=== PATIENT | male | born 1940 | race Two or more races ===

== ENCOUNTER 2016-09-27 13:18 | Observation (INO) | payer MEDICARE ==
--- NOTE | 2016-09-19 13:50 | HP ---
PREOPERATIVE HISTORY AND PHYSICAL: DATE OF PREOPERATIVE HISTORY AND PHYSICAL EXAMINATION: 09/16/16. DATE OF ADMISSION: 09/27/16 This patient is scheduled for same-day surgery admission by Dr. Nunez on 09/27/16. ATTENDING SURGEON: Dr. Gonzalo Nunez (dictated by Jamilah Lopez NP). CHIEF COMPLAINT: Abdominal pain. HISTORY OF PRESENT ILLNESS: The patient is a 76-year-old male evaluated by Dr. Nunez in our office on 08/10/16. The patient had been to the [facility] Emergency Department on 07/19/16 for abdominal pain and change in bowel movements. The patient reports that about 9 months ago, he started to have loose and frequent bowel movements. He also described discomfort in the right upper quadrant of the abdomen associated with tenderness. The patient's noted that the abdominal pain occurred postprandially and lasted anywhere from 10 to 30 minutes. He denies any dark urine or shweta-colored stools or jaundice or fever or chills. In the emergency department, he had both CT of the abdomen and abdominal ultrasound completed, and on the ultrasound, the gallbladder wall was thickened and it was surrounded by a small amount of ascites. The patient reported that he had tenderness at the time of the ultrasound. Dr. Nunez examined the patient and reviewed the labs and the radiographic data from and discussed with the patient that the findings are most consistent with biliary colic/chronic cholecystitis. Dr. Nunez recommends laparoscopic cholecystectomy as a same-day surgery procedure and discussed the nature of the procedure, the relevant risks and benefits, and today I reviewed the typical postoperative care and recovery. The patient has a history of coronary artery disease and is followed by a ratoprinter in [place], [place], Dr. Devin Barriga at the [facility]. Dr. Barriga has evaluated the patient preoperatively and has cleared him to proceed with surgery. The patient has had a chance to ask questions and stated that he understands the information and is satisfied with the answers given to his questions. He will sign surgical consent on the day of surgery. PAST MEDICAL HISTORY: Significant for coronary artery disease, hyperlipidemia, sleep apnea requiring the use of CPAP, obesity, Wenckebach conduction, bladder cancer, GERD, and benign prostatic hypertrophy. PAST SURGICAL HISTORY: Laparoscopic appendectomy, 2007, [facility]; pacemaker implantation, [facility], 2006, and it is a [employer] dual-chamber pacemaker; transurethral bladder surgery for cancer at [facility]; and TURP for benign prostatic hypertrophy; bilateral cataract extraction. MEDICATIONS: 1. Lipitor 80 mg p.o. daily at bedtime. 2. Zantac 300 mg p.o. daily at bedtime. 3. Losartan 100 mg p.o. daily. 4. Aspirin 81 mg daily and the patient will hold it for 5 days preop. 5. Nitroglycerin 0.4 mg sublingual p.r.n. angina. ALLERGIES: LATEX and ADHESIVE TAPE cause rash; MICARDIS caused headache, ALTACE caused cough. FAMILY HISTORY: Father with a history of bladder cancer. Mother with a history of heart disease. No known anesthesia complications, bleeding tendencies, or clotting disorders. 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 REVIEW OF SYSTEMS: He has a history of coronary artery disease, hyperlipidemia , and Wenckebach conduction, and has a permanent pacemaker; he is followed by Dr. Devin Barriga for Cardiology in [place], [place]; please see the attached preoperative clearance note from Dr. Barriga; he denies any recent chest pain or unusual shortness of breath; he denies any history of deep vein thrombosis or pulmonary embolism; he denies any previous anesthesia complications; he denies any bleeding tendencies and has never received a blood transfusion; he denies any syncopal episodes; he denies any recent viral illnesses; he denies any blood in stool; he does suffer from heartburn; he denies any shweta-colored stools or tea- colored urine or ronald jaundice; he has sleep apnea and uses CPAP ; he denies any joint or muscle pain. The patient had an echocardiogram in November 2015 with an ejection fraction of 60% to 65%. PHYSICAL EXAMINATION GENERAL SURVEY: The patient is a 76-year-old male, obese, well-developed, in no acute distress. VITAL SIGNS: Height 71 inches, weight 245 pounds, body mass index 34.2. Blood pressure 130/80, pulse 80 and regular, respiratory rate 18. SKIN: Warm, dry, intact. HEENT: Benign. NECK: Supple. No cervical lymphadenopathy. No carotid bruits. BACK: No CVA tenderness. LUNGS: Breath sounds bilaterally clear and equal. HEART: Regular rate and rhythm. No murmurs, rubs, or gallops appreciated. ABDOMEN: Obese, active bowel sounds, mildly tender in the epigastrium to the right upper quadrant. Negative Griffith's sign. No obvious masses or organomegaly or evidence of hernia. EXTREMITIES: Warm without edema or skin ulcerations. GENITALIA: Deferred. RECTAL: Deferred. NEUROLOGIC: Alert and oriented x3. Steady gait. IMPRESSION: Symptomatic cholelithiasis. PLAN: Same-day surgery admission to Dr. Nunez' service on 09/27/16, for laparoscopic cholecystectomy. ELVER LOPEZ NP CC: Dr. Johnston* [id number]/[facility] #: [id number] GALO
[~2016-09-27 13:18] MED LIST: Buffered Lidocaine 1% SYR 3ML* 3 ML/SYR SYRINGE INTRADERM ONE; Famotidine IV* 10 MG/ML 2 ML (20 mg) IV ONE; Morphine INJ* 2 MG/ML 1 ML CARPUJECT IV PRN; PROCHLORPERAZINE INJ 5 MG/ML 2 ML VIAL IV PRN; fentaNYL* 50 MCG/ML 2 ML VIAL (100 MCG VIAL) IV PRN; oxyCODONE/Acetamin 5/325 MG* TAB PO PRN
[2016-09-27] MEDS ORDERED: Famotidine IV* 10 MG/ML 2 ML (20 mg) ONE (13:49)
[2016-09-27] MEDS ORDERED: ceFAZolin 2 GM PREMIX (*) 2 GM/50 ML BAG IVPB ONE (13:49)
[2016-09-27] MEDS ORDERED: Morphine INJ* 10 MG/ML 1 ML CARPUJECT ONE (14:19)
[2016-09-27] MEDS ORDERED: Midazolam* 1 MG/ML 5 ML VIAL (5 MG) ONE (14:20)
[2016-09-27] MEDS ORDERED: fentaNYL* 50 MCG/ML 2 ML VIAL (100 MCG VIAL) ONE ×2 (14:20→19:01)
[2016-09-27] MEDS ORDERED: KETAMINE HCL* 50 MG/ML 10 ML VIAL ONE (14:20)
[2016-09-27] MEDS ORDERED: Bupivacaine 0.5% W/EPI SDV* 30 ML VIAL ONE (14:46)
[2016-09-27] MEDS ORDERED: Ondansetron INJ* 2 MG/ML VIAL ONE (15:47)
[2016-09-27] MEDS ORDERED: Propofol* 10 MG/ML 20 ML BTL IV PUSH ONE (15:47)
[2016-09-27] MEDS ORDERED: Lidocaine 2% PF * 5 ML VIAL ONE (15:47)
[2016-09-27] MEDS ORDERED: Dexamethasone IV* 4 MG/ML 1 ML (4 MG) ONE (15:47)
[2016-09-27] MEDS ORDERED: Ropivacaine (OR use only) 2 MG/ML 1 ML ONE (15:47)
[2016-09-27] MEDS ORDERED: Glycopyrrolate IV* 0.2 MG/ML 1 ML VIAL ONE (15:47)
[2016-09-27] MEDS ORDERED: Neostigmine Methylsulfate* 2 MG/2 ML SYRINGE ONE (17:03)
[2016-09-27] MEDS ORDERED: Metoprolol Tartrate IV* 1 MG/ML 5 ML VIAL ONE (17:08)
--- NOTE | 2016-09-27 17:53 | PN ---
Progress Note - Progress Note Note: Brief Operative Note: Preop Dx: biliary colic Postop Dx: same; ascites; early cirrhotic appearing liver Procedure: diagnostic laparoscopy; laparoscopic cholecystectomy; paracentesis; liver bx Anesthesia: GET Surgeon: Mayra Asst: ANGELES Patel PA-S EBL: < 100 ml Fluids: 1800 ml RL Drains: none Specimen: Gallbladder; peritoneal fluid for cytology, gram stain, and chemistries Findings: 3-4 liters of ascites; nodular liver c/w early cirrhosis.
[2016-09-27] MEDS ORDERED: oxyCODONE/Acetamin 5/325 MG* TAB PO PRN ×2 (18:00→18:01)
[2016-09-27] MEDS ORDERED: Acetaminophen TAB* 325 MG PO PRN (18:02)
--- NOTE | 2016-09-28 01:10 | CONS ---
CONSULTATION REPORT: DATE OF CONSULT: 09/27/16 PRIMARY CARE PROVIDER: Franklyn Johnston MD ATTENDING PHYSICIAN: Miki Bojorquez MD (dictated by Shruti Downs NP). PHYSICIAN REQUESTING CONSULTATION: Gonzalo Nunez MD REASON FOR CONSULTATION: Ascites. HISTORY OF PRESENT ILLNESS: Mr. Ashford is a 76-year-old male with past medical history significant for coronary artery disease, hyperlipidemia, sleep apnea, bladder cancer, GERD, BPH and biliary colic and chronic cholecystitis. The patient underwent a laparoscopic cholecystectomy with Dr. Nunez today. Postoperatively, the patient is doing well. He reports some abdominal discomfort that is controlled with pain medication. Leading up to the surgery, the patient had initially presented to the [facility] on July 19 with complaints of abdominal pain and changes in his bowel movement. The patient reports for approximately 9 months, he started having loose and frequent bowel movements and discomfort in his right upper quadrant of his abdomen associated with tenderness. He noticed the pain often occurred after eating and lasted from 10 to 30 minutes. While in the emergency room on , the patient had a CT of his abdomen and an abdominal ultrasound completed. The abdominal ultrasound showed gallbladder wall thickening and was surrounded by a small amount of ascites. The patient was seen in followup in Dr. Nunez' office on August 10 at which time, Dr. Nunez recommended a laparoscopic cholecystectomy. The patient underwent a laparoscopic cholecystectomy today during which he was found to have 3 L to 4 L of ascites and a nodular liver that was consistent with early cirrhosis. The patient denies fever, chills, shortness of breath or chest pain. The patient reports abdominal pain over the last several months with loose frequent stools. 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 Ruiz. The patient also reports noticing over the last few weeks, some abdominal distention. Hospitalists were asked to evaluate the patient in consultation and assist with management in the postoperative period. PAST MEDICAL HISTORY: 1. Coronary artery disease. 2. Hyperlipidemia. 3. Obstructive sleep apnea, uses CPAP. 4. Obesity. 5. Wenckebach conduction. 6. Bladder cancer. 7. GERD. 8. Benign prostatic hypertrophy. PAST SURGICAL HISTORY: 1. Status post laparoscopic appendectomy in 2006. 2. Status post pacemaker implantation in 2006. 3. Status post transurethral bladder surgery. 4. Status post transurethral resection of the prostate. 5. Status post bilateral cataract extractions. 6. Status post cardiac catheterization with one cardiac stent. HOME MEDICATIONS: Include: 1. Lipitor 80 mg oral daily at bedtime. 2. Zantac 150 mg oral daily at bedtime. 3. Losartan 100 mg oral daily. 4. Aspirin 81 mg oral daily. The patient has held this for 5 days preop. 5. Nitroglycerin 0.4 mg sublingual as needed for chest discomfort. ALLERGIES: LATEX, ADHESIVE TAPE, MICARDIS and ALTACE. FAMILY HISTORY: The patient's father passed from bladder cancer. The patient' s mother had a history of heart disease. The patient denies any family history of diabetes mellitus. SOCIAL HISTORY: The patient is a former smoker. He smoked for 30 years approximately 3 packs a day and quit approximately 14 years ago. The patient reports drinking 1 glass of wine daily. The patient's , Caroline Ashford, will be his surrogate decision maker in the event he is unable to make decisions for himself. REVIEW OF SYSTEMS: I performed a 14-point review of systems. All the pertinent positives and negatives are mentioned in the history of present illness. The remaining review of systems is negative. PHYSICAL EXAMINATION: Vital Signs: Temperature 97.0, heart rate 96, respiratory rate 16, O2 sat 95% on 2 L via nasal cannula, blood pressure 138/ 77. Appearance: The patient is alert and appears to be in no acute distress. HEENT: Normocephalic, atraumatic. Pupils are equal and reactive to light. Extraocular movements are intact. Neck: Supple. There is no lymphadenopathy noted. Cardiovascular: Regular rate and rhythm. S1 and S2 present. There are no murmurs, rubs or gallops heard. Extremities: There is no lower extremity edema. DP and PT pulses are 2+ and symmetric. Respiratory: There is no accessory muscle use and the lungs are clear to auscultation bilaterally. Abdomen: Obese and large. Bowel sounds present. The patient has tenderness in the right upper quadrant. The abdomen is slightly firm. Musculoskeletal: There is no clubbing or cyanosis noted. The patient exhibits good strength in all extremities. Skin: There are no rashes or abnormality seen. The patient has surgical dressings to his abdomen. Neurological: Cranial nerves II through XII are grossly intact. The patient moves all extremities. Psychological: The patient is calm and cooperative. IMPRESSION: Mr. Ashford is a 76-year-old male with past medical history significant for coronary artery disease, hyperlipidemia, obstructive sleep apnea who presented to the hospital today for an elective cholecystectomy with Dr. Nunez. Hospitalists were asked to assist with comanagement of this patient during his hospitalization. 1. Status post laparoscopic cholecystectomy for chronic cholecystitis and biliary colic. Management per General Surgery. The patient was noted during his procedure to have 3 to 4 L of ascites and a nodular liver consistent with early cirrhosis. I recommend monitoring the patient for hypotension after the removal of his ascites. I also recommend having a GI consult on the patient. 2. Hyperlipidemia. The patient will be continued on his home statin. 3. Gastroesophageal reflux disease. The patient will be continued on Pepcid in place of his home Zantac. 4. History of coronary artery disease. Again, the patient will be continued on his home statin. He should resume his aspirin when okay with General Surgery. 5. Hypertension. The patient should be continued on his home losartan. At this time, his vitals are stable with the systolic blood pressures in the 130s to 150s. Again, monitor the patient for hypotension after the removal of the ascites. 6. Obstructive sleep apnea. The patient will be continued on his home CPAP. 7. Fluids, electrolytes and nutrition. The patient will be on a low-fat diet. 8. DVT prophylaxis per General Surgery. 9. Code status. Full code. 10. Disposition. Disposition per General Surgery. TIME SPENT: The time for this consultation was 45 minutes and 25 minutes were spent face to face with the patient and discussing medications, past medical history and the events leading up to his arrival today and performing a physical examination. The case has been reviewed with the attending, Dr. Bojorquez, who agrees with the plan of care. Reviewed by PAPITO GALLOWAY 09/28/16 1150 CC: Franklyn Johnston MD * [id number]/[facility] #: [id number] MTDD
[2016-09-28 06:52] LABS: Body Fluid Appearance Cloudy; Body Fluid Total Cells Counted 100
[2016-09-28 06:53] LABS: Body Fluid WBC 262 /mcL
[2016-09-28] MEDS ORDERED: Losartan TAB* 25 MG PO SCH (09:00)
[2016-09-28] MEDS ORDERED: Atorvastatin* 80 MG TAB PO SCH (09:00)
[2016-09-28] MEDS ORDERED: Famotidine TAB* 20 MG PO SCH (09:00)
[2016-09-28 10:05] LABS: Hematocrit 38 % (42-52); Hemoglobin 12.4 g/dl (14.0-18.0); Mean Corpuscular HGB Conc 33 g/dl (31-36); Mean Corpuscular Hemoglobin 28 pg (27-31); Mean Corpuscular Volume 87 fL (80-94); Mean Platelet Volume 10 um3 (7.4-10.4); Red Blood Count 4.37 10^6/ul (4.0-5.4); Red Cell Distribution Width 17 % (10.5-15); White Blood Count 4.9 10^3/ul (3.5-10.8)
[2016-09-28 10:19] LABS: Albumin 2.6 g/dL (3.2-5.2); BUN/Creatinine Ratio 14.5 (8-20); Calcium 8.3 mg/dL (8.6-10.3); EGFR African American 68.8 (>60); EGFR Non-African American 53.5 (>60); Globulin 3.3 g/dL (2-4); Potassium 4.6 mmol/L (3.5-5.0); Total Bilirubin 0.6 mg/dL (0.2-1.0); Total Protein 5.9 g/dL (6.4-8.9)
[2016-09-28 12:20] VITALS: BP 98/50
--- NOTE | 2016-09-28 14:55 | PN ---
Progress Note - Progress Note Note: Surgery Progress: (earlier note written, but I could not retrieve) S: Denies pain. Dressings had saturated multiple times overnight, but seemed to be less from 0930 to 1200. He is tolerating diet. O: Vital Signs - 8 hr 09/28/16 09/28/16 09/28/16 07:09 08:00 12:16 Temperature 98.3 F 98.0 F Pulse Rate 77 73 Respiratory 16 16 20 Rate Blood Pressure 105/47 98/50 (mmHg) O2 Sat by Pulse 97 97 96 Oximetry Vital Signs - 8 hr 09/28/16 09/28/16 09/28/16 07:09 08:00 12:16 Temperature 98.3 F 98.0 F Pulse Rate 77 73 Respiratory 16 16 20 Rate Blood Pressure 105/47 98/50 (mmHg) O2 Sat by Pulse 97 97 96 Oximetry Heart: reg; BPs still relatively low Lungs: clear ant Abd: distended; ABD wound dressing previously changed and saturated w/ clear ascites fluid; 2 add'l sutures (4-0 surgipro) placed after local anesthesia w/ 1 % plain lidocaine to the lateral lap port sites). Soft, min tenderness. Labs from peritoneal fluid still pend; cytology neg for malig cells A: s/p lap brijesh for chronic cholecystitis w/ findings of early cirrhotic changes of the liver and large amt of ascites (3-4 liters drained at the time of surgery). P: he has remained stable since surgery, but I encouraged him to get up more to see his BP response. I also spoke w/ Dr. Ruiz who will see him today. Dr. Guillen is also aware and will either see him before he goes home or in the office. If he continues to do well, he could be d/c'd to home later today.
--- NOTE | 2016-09-28 22:57 | CONS ---
CONSULTATION REPORT: DATE OF CONSULT: 09/28/16 REQUESTING PHYSICIAN: Dr. Nunze. INDICATION: Possible cirrhosis. NARRATIVE: Mr. Ashford is a very pleasant 76-year-old gentleman known to myself. I have seen him for colonoscopies in the past. He recently underwent a laparoscopic cholecystectomy and at that time was found to have ascites and a nodular appearing liver. The ascites were drained and the liver was biopsied. The patient states that about 3 to 4 weeks ago, he noticed that his abdomen was increasing in girth. He denied any jaundice. No history of liver disease in the past. No family history of liver disease. He drinks may be one alcoholic beverage per day; however, up until 8 months ago, he was drinking 2 to 3 alcoholic beverages per week. Again, no family or known history of liver disease in the patient. He denies any suspect medications. PAST MEDICAL HISTORY: Significant for hypercholesterolemia, hypertension, coronary artery disease. PAST SURGICAL HISTORY: Includes appendectomy, pacemaker, cholecystectomy, and coronary artery stents. MEDICATIONS: Upon admission included: 1. Aspirin. 2. Lipitor. 3. Losartan. 4. Nitrostat. 5. Zantac. ALLERGIES: No known drug allergies. FAMILY HISTORY: Colon cancer. SOCIAL HISTORY: Occasional alcohol. No tobacco. He quit many years ago. REVIEW OF SYSTEMS: 12 systems were reviewed, other than that mentioned in the HPI were unremarkable. PHYSICAL EXAM: Vital signs are stable. Temperature is 98.0, blood pressure 98/ 50, pulse is 73. General: Well-appearing male, in no apparent distress. Alert , oriented, pleasant, and fluent. HEENT: Mucous membranes are moist without lesions, ulcerations, or exudate. Neck is supple. Trachea is midline. Head is normocephalic, atraumatic. Heart: Regular rate and rhythm. There is no scleral icterus. Lungs: Clear to auscultation. Abdomen: Obese. Positive bowel sounds. No flanks. He is tender; however, he just had cholecystectomy yesterday. Neuro: No asterixis. DIAGNOSTIC STUDIES/LAB DATA: Labs of note, INR 0.94. Bilirubin 0.6, AST is 31 , ALT is 25, alk phos is 112, albumin is 2.6. White count 4.9, hemoglobin 12.4 , platelets of 140. BUN is 19, creatinine is 1.31, sodium is 135. He did have a CT abdomen and pelvis in June 2016, which did not reveal any evidence of liver disease. He did have a small amount of ascites. ASSESSMENT AND PLAN: This is a pleasant 76-year-old gentleman with ascites and nodular-appearing liver at [facility]. He did have a biopsy of the liver and the ascites drained. We had a long discussion regarding possible causes of cirrhosis. I do not hear any obvious causes. I do wonder if he could have GEORGES. I doubt alcohol. I will check him for autoimmune, PBC, hepatitis A, B, and C, and hemochromatosis. I will await the biopsy and I will see him back in the office likely next week. Additionally regarding his ascites, it seems to have accumulated somewhat since surgery. Unfortunately, he is slightly hypotensive and his creatinine is a little elevated. I do not want to start diuretics right now. We will see how the ascites does. I counseled him regarding a low-salt diet. CC: Dr. Johnston; Dr. Nunez; Dr. Ruiz * [id number]/[facility] #: [id number] [facility]
[2016-09-29 14:07] LABS: Glucose, BF 124 mg/dL
[2016-09-29 17:09] LABS: BF Alpha-1-Globulin 4 %; BF Alpha-2-Globulin 6 %; BF Beta Globulin 15 %; BF Gamma Globulin 20 %
--- NOTE | 2016-09-30 05:08 | OP ---
DATE OF OPERATION: 09/27/16 - ROOM #332 DATE OF : 44 SURGEON: Gonzalo Nunez MD SELVAGE MACHINE OPERATOR: KATIE Grover ANESTHESIOLOGIST: Dr. Back. ANESTHESIA: General endotracheal. PRE-OP DIAGNOSIS: Symptomatic cholelithiasis. POST-OP DIAGNOSES: Symptomatic cholelithiasis, ascites, and cirrhosis. OPERATIVE PROCEDURE: Laparoscopic cholecystectomy, paracentesis, laparoscopic surgical exploration, and right lobe liver biopsy. ESTIMATED BLOOD LOSS: Minimal. IV FLUIDS: Crystalloid. SPECIMENS: 1. Peritoneal fluid. 2. Liver biopsy. 3. Gallbladder. DRAINS: None. COMPLICATIONS: None. COUNTS: Instrument, needle, and sponge counts were correct. DESCRIPTION OF PROCEDURE: The patient was brought to the operating room and placed on the table supine. Sequential compression devices were placed on both lower extremities. General anesthesia was administered. His abdomen was prepped and draped in the usual sterile fashion. He received appropriate intravenous antibiotics. Time-out was performed. Local anesthetic was infiltrated into the skin and soft tissue prior to making each incision. The entry to the abdomen was using an open technique in the supraumbilical incision. After accessing the peritoneal cavity, there was eileen - colored peritoneal fluid forthcoming. 60 cc of this was submitted to Pathology for analysis. A 12-mm trocar was then placed into the site and inspection with a laparoscope revealed a large amount of eileen-colored ascites throughout the abdominal cavity. This was suctioned from the abdomen. The liver was inspected. There was some mild nodularity on the right lobe. The left lobe looked relatively normal. The gallbladder did appear to be chronically inflamed with changes suggestive of chronic cholecystitis. A Howard-Cut liver biopsy was performed of the right lobe of the liver and the site was cauterized to achieve hemostasis. Next, the fundus was retracted cephalad and the infundibulum was retracted laterally. The peritoneum investing the gall-bladder was incised medially and then laterally and the infundibulocystic junction was dissected out using a combination of blunt and sharp dissection, and the cystic artery was also dissected out in this fashion. After each structure was dissected clear and after obtaining a critical view, the structures were both doubly clipped and divided. The gallbladder was grasped at the cystic duct stump and retracted cephalad and then cautery was used to free the gallbladder from its attachments to the liver bed staying in an avascular plane. Once the gallbladder was freed, it was placed into an endo- scopic retrieval bag and retrieved through the supraumbilical port site. Next, the decision was made to further explore the abdomen laparoscopically. The parietal peritoneal surfaces were inspected. There was no obvious abnormality. There was some scarring in the area of the cecum which was consistent with a previous history of appendectomy. The ileocecal valve was identified and the ileum was run proximally to the ligament of Treitz and no abnormalities to the small bowel were noted. At this point, it was opted to conclude the procedure. The ports were removed under direct visualization and carbon dioxide was released. The supraumbilical wound was closed with 0 Polysorb in figure-of-8 fashion to approximate the fascia. The skin incisions were all closed with 4-0 Monocryl in subcuticular fashion. Steri-Strips were applied. Dressings were applied. The patient tolerated the procedure well, was extubated, and transferred to recovery room in stable condition. CC: Franklyn Johnston MD; Isaac Ruiz MD; Edwin Guillen MD * [id number]/[facility] #: [id number] [facility]
--- NOTE | 2016-10-29 04:07 | DS ---
DISCHARGE SUMMARY: DATE OF ADMISSION: 09/27/16 DATE OF DISCHARGE: 09/28/16 DISCHARGE DIAGNOSES: 1. Symptomatic cholelithiasis. 2. History of coronary artery disease. 3. History of hyperlipidemia. 4. Obstructive sleep apnea. 5. Obesity. 6. History of bladder cancer. 7. Gastroesophageal reflux. 8. Benign prostatic hypertrophy. 9. Wenckebach conduction. 10. Ascites. OPERATIVE PROCEDURES: Laparoscopic cholecystectomy, paracentesis, laparoscopic surgical exploration, and right lobe liver biopsy, all performed on 09/27/16. HOSPITAL COURSE: This is a 76-year-old gentleman, who was admitted to [facility] for elective laparoscopic cholecystectomy. At the time of the surgery, the patient was found to have ascites and had a normal-appearing liver prompting paracentesis as well as biopsy of the liver. Postoperatively, the patient did well. He was transferred to the surgical floor postoperatively and due to the operative findings, consultation was obtained from Dr. Ruiz, who previously had known the patient and the patient was also evaluated by hospitalist service because of medical co-management. Ultimately, the patient did well and progressed in his diet and activity level and was able to be discharged home on 09/28/16. He had been advised to continue regular, low-fat diet, was provided postoperative instructions from the [facility] office. He was instructed to resume his preoperative medications and to follow up in the [facility] office the week after discharge. At the time of discharge, he had laboratory testing for his ascites as well as pathology for his gallbladder and liver biopsy. CC: Franklyn Johnston MD; Isaac Ruiz MD; Edwin Guillen MD * [id number]/[facility] #: [id number] MTDD
== END 2016-09-28 16:35 | disposition home or self-care (01) ==
LOC: OR 13:18 → SSU 20:55
PROVIDERS: ADMIT Surgery; ATTEND Surgery
DX: K80.10 Calculus of gallbladder with chronic cholecystitis without obstruction (principal); R18.8 Other ascites; I25.10 Atherosclerotic heart disease of native coronary artery without angina pectoris; E78.00 Pure hypercholesterolemia, unspecified; Z95.0 Presence of cardiac pacemaker; Z95.5 Presence of coronary angioplasty implant and graft; Q42.8 Congenital absence, atresia and stenosis of other parts of large intestine; Z87.891 Personal history of nicotine dependence; Z79.82 Long term (current) use of aspirin
CPT/HCPCS: 36415; 80053; 80074; 82150; 82945; 83516; 83615; 84166; 84466; 85025; 85610; 86038; 87070; 87205; 88112; 88304; 88307; 88313; 89051; 94760; 96374; 96375; A9270-GY; C1776; G0378; J0690; J1100; J2250; J2270; J2405; J2704; J2795; J3010; J3490

== ENCOUNTER 2017-09-22 10:37 | Inpatient (IN) | payer MEDICARE ==
--- OUTSIDE RECORDS SUMMARY | 2017-09-22 10:53 | XMS REPORT ---
:1940 External Reference #:[id number] Author Organization [facility] Address [address] [address] Phone [phone] Care Team Providers Name Role Phone Franklyn Johnston MD Primary Care Physician Unavailable Payers Type Date Identification Numbers Payment Subscriber Provider Health Maintenance Effective: Policy Number: Medicare Rolly Jj Abdprisca [facility] ([facility] [place], [place]) 07/31/2016 [id number] Ppo Group Number: [id number] [address] [address] PayID: [id number] SWATI Marcus [address] Health Maintenance Effective: Policy Number: Medicare Rolly Jj [facility] ([facility] [place] [place]) 07/31/2013 [id number] Pp Deojn Expires: 07/30/2014 Group Number: [id number] [address] [address] Group Name: Expires 07/30/14 SWATI Marcus [address] PayID: [id number] Medigap Part B Effective: 01/28/2010 Policy Number: [facility] Diya Jj Dejon [id number] Expires: 07/30/2013 PayID: [id number] [address] [address] SWATI Marcus [address] Medigap Part B Effective: 12/29/2006 Policy Number: Medicare Diya Jj Dejon [id number] Expires: 07/30/2013 PayID: [id number] [address] [place] [address] Problems Date Description Provider Status Onset: 07/09/2013 Sprain of foot Bryan Dee M.D. 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 Quit at age 62yrs Recreational Drug Use Denies Drug Use Daily Caffeine Does Not Consume Caffeine Exercise Type/Frequency Does not exercise Allergies, Adverse Reactions, Alerts Date Description Reaction Status Severity Comments 07/09/2013 Latex Contact dermatitis active 07/09/2013 Adhesive Tape active 02/28/2017 Horse Serum active Medications Medication Date Status Form Strength Qnty SIG Indications Ordering Provider Aspirin Ec / Active 81mg daily Unknown Lo-Dose 0000 Nitroglycerin / Active Tablets 0.4mg 1 SL prn Unknown 0000 Sub angina Lasix / Active Tablets 40mg 1 by Unknown 0000 mouth twice a day Spironolactone / Active Tablets 50mg 1 by Unknown 0000 mouth every day Hydrocodone 09/16/ Hx Tablets 5-300mg 14tabs 1 tab by Jamilah Bitartrate/Acetam 2017 mouth B. 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 Zantac 03/01/ Hx Tablets 300mg 90tabs 1 tab by K21.9 Miriam 2016 Krystle Anguiano MD 03/29/ 2016 day every night Lipitor 07/09/ Hx Tablets 80mg 90tabs 1 po [facility] Bryan Dee, 03/29/ Clarita 2016 Losartan /00/ Hx Unknown Potassium 0000 - 2013 Celebrex 00/00/ Hx 200 daily Unknown 0000 - 2015 Losartan /00/ Hx Tablets 100mg 1 by Unknown Potassium 0000 mouth every day Aldactone 00/ Hx Tablets 50mg 1 by Unknown 0000 - mouth 12/10/ daily 2017 Midodrine HCL / Hx Tablets 5mg 1 po tid Wendie Ward MD 2016 Medications Administered in Office Medication Date Status Form Strength Qnty SIG Indications Ordering Provider Influenza,Unsp Administered Injection Unknown ecified 017 Immunizations CPT Code Status Date Vaccine Lot # [id number] Given 05/14/2014 Influenza Virus 3Yrs & Over Vital Signs Date Vital Result Comment 09/21/2017 Height 71 inches 5'11" Weight 233.00 lb w/ shoes Heart Rate 62 /min BP Systolic Sitting 108 mmHg lue large cuff BP Diastolic Sitting 58 mmHg lue large cuff BP Systolic Standing 112 mmHg lue large cuff BP Diastolic Standing 58 mmHg lue large cuff Respiratory Rate 18 /min BMI (Body Mass Index) 32.5 kg/m2 Ejection Fraction 40-45% echo 02/23/17 08/14/2017 Height 71 inches 5'11" Weight 228.00 lb Heart Rate 84 /min BP Systolic Sitting 112 mmHg BP Diastolic Sitting 64 mmHg Respiratory Rate 14 /min Body Temperature 97.0 F BMI (Body Mass Index) 31.8 kg/m2 07/10/2017 Height 71 inches 5'11" Weight 224.25 lb Heart Rate 84 /min BP Systolic Sitting 120 mmHg BP Diastolic Sitting 64 mmHg Respiratory Rate 14 /min Body Temperature 97.4 F BMI (Body Mass Index) 31.3 kg/m2 03/30/2017 Weight 218.00 lb Heart Rate 75 /min BP Systolic Sitting 112 mmHg BP Diastolic Sitting 60 mmHg Respiratory Rate 20 /min Pain Level 0 O2 % BldC Oximetry 98 % 10/12/2016 Heart Rate 100 /min BP Systolic 118 mmHg BP Diastolic 74 mmHg Respiratory Rate 18 /min Body Temperature 96.9 F 10/05/2016 Heart Rate 78 /min BP Systolic 120 mmHg BP Diastolic 72 mmHg Respiratory Rate 16 /min Body Temperature 97.4 F 09/16/2016 Height 71 inches 5'11" Weight 245.00 lb Heart Rate 80 /min BP Systolic 130 mmHg BP Diastolic 80 mmHg Respiratory Rate 18 /min Body Temperature 97.4 F BMI (Body Mass Index) 34.2 kg/m2 08/10/2016 Height 71 inches 5'11" Weight 245.00 lb Heart Rate 82 /min BP Systolic Sitting 142 mmHg BP Diastolic Sitting 70 mmHg Respiratory Rate 16 /min Body Temperature 97.9 F BMI (Body Mass Index) 34.2 kg/m2 03/01/2016 Height 70 inches 5'10" Weight 235.00 lb Heart Rate 68 /min BP Systolic 138 mmHg BP Diastolic 82 mmHg Respiratory Rate 14 /min O2 % BldC Oximetry 96 % BMI (Body Mass Index) 33.7 kg/m2 07/07/2014 Height 70 inches 5'10" Weight 225.00 lb Heart Rate 70 /min BP Systolic 156 mmHg BP Diastolic 85 mmHg Body Temperature 97.3 F Pain Level 7 BMI (Body Mass Index) 32.3 kg/m2 06/30/2014 Height 72 inches 6'0" Weight 237.00 lb Heart Rate 88 /min BP Systolic Sitting 118 mmHg left arm, reg cuff BP Diastolic Sitting 76 mmHg left arm, reg cuff Respiratory Rate 16 /min O2 % BldC Oximetry 98 % Room air BMI (Body Mass Index) 32.1 kg/m2 Neck Circumference in inches 18.5 06/11/2014 Height 72 inches 6'0" Weight 270.00 lb Pain Level 5 BMI (Body Mass Index) 36.6 kg/m2 05/28/2014 Height 72 inches 6'0" Weight 270.00 lb Heart Rate 102 /min BP Systolic 143 mmHg BP Diastolic 86 mmHg Body Temperature 98.6 F BMI (Body Mass Index) 36.6 kg/m2 Results Test Date Test Result H/L Range Note Laboratory test finding 07/12/2017 Hepatitis E IgM Negative Negative 1 Antibody Hepatitis E IgG Antibody Negative Negative 2 Laboratory test 07/12/2017 Hepatitis E IgM Antibody Negative Negative 3 finding Laboratory test 07/12/2017 Hepatitis E IgM Antibody Negative Negative 4 finding Laboratory test 07/12/2017 Hepatitis E IgM Antibody Negative Negative 5 finding Laboratory test 07/12/2017 Hepatitis E IgM Antibody Negative Negative 6 finding Laboratory test 07/12/2017 Hepatitis E IgM Antibody Negative Negative 7 finding Laboratory test 07/12/2017 Hepatitis E IgM Antibody Negative Negative 8 finding Laboratory test 07/12/2017 Hepatitis E IgM Antibody Negative Negative 9 finding HIV 1/2 Ag & AB 07/12/2017 HIV-1/-2 Screen, S Negative Negative 10 Eval Laboratory test 07/12/2017 Miscellaneous Test See Comment 11 finding Hepatitis E IgM Antibody Negative Negative 12 Laboratory test finding 07/12/2017 Hepatitis E IgM Negative Negative 13 Antibody Laboratory test finding 07/12/2017 Hepatitis E IgM Negative Negative 14 Antibody Laboratory test finding 07/12/2017 Hepatitis E IgM Negative Negative 15 Antibody Laboratory test finding 07/12/2017 Hepatitis E IgM Negative Negative 16 Antibody Laboratory test finding 07/12/2017 Hepatitis E IgM Negative Negative 17 Antibody Laboratory test finding 07/12/2017 Hepatitis E IgM Negative Negative 18 Antibody Laboratory test finding 07/12/2017 Hepatitis E IgM Negative Negative 19 Antibody Laboratory test finding 07/12/2017 Hepatitis E IgM Negative Negative 20 Antibody Laboratory test finding 12/02/2016 Cytology Non-Risk And Insurance Consultant SEE RESULT BELOW 21 Plasma Cell 12/02/2016 Plasma Cell Dis Res Abnormal Profliferative Disorder Summary Plasma Cell Prolif Specimen Bone Marrow Plasma Cell Prolif Dis Source Right PIC Plasma Cell Referral Reason See Comment 22 Plasma Cell Prolif Dis Method See Comment 23 Plasma Cell Dis Result Table See Comment 24 Plasma Cell Prolif Dis Results See Comment 25 Plasma Cell Dis Interpretation See Comment 26 Plasma Cell Dis Add Info See Comment 27 Plasma Cell Dis Disclaimer See Comment 28 Plasma Cell Dis Released By See Comment 29 B-Cell Lymphoma Fish 12/02/2016 FBLP Specimen Bone Marrow FBLP Source Right PIC FBLP Reason for Referral See Comment 30 FBLP Method See Comment 31 FBLP Result Summary Normal FBLP Result See Comment 32 FBLP Result Table See Comment 33 FBLP Interpretation See Comment 34 FBLP Additional Information See Comment 35 FBLP Released By See Comment 36 FBLP Disclaimer See Comment 37 Leukemia/Lymphoma Flow 12/02/2016 Path Interpretation 2-8 Marker TNP Path Interpret > 16 Marker TNP Path Interpret 9-15 Marker (SEE NOTE) 38 Laboratory test 12/02/2016 Surgical Pathology SEE RESULT BELOW 39 finding Laboratory test 11/04/2016 Surgical Interface SEE RESULT BELOW 40 finding Order CBC Auto Diff 11/04/2016 White Blood Count 5.0 10^3/uL 3.5-10.8 Red Blood Count 4.88 10^6/uL 4.0-5.4 Hemoglobin 13.5 g/dL Low 14.0-18.0 Hematocrit 42 % 42-52 Mean Corpuscular Volume 85 fL 80-94 Mean Corpuscular Hemoglobin 28 pg 27-31 Mean Corpuscular HGB Conc 33 g/dL 31-36 Red Cell Distribution Width 18 % High 10.5-15 Platelet Count 140 10^3/uL Low 150-450 Mean Platelet Volume 9 um3 7.4-10.4 Abs Neutrophils 3.5 10^3/uL 1.5-7.7 Abs Lymphocytes 1.0 10^3/uL 1.0-4.8 Abs Monocytes 0.4 10^3/uL 0-0.8 Abs Eosinophils 0 10^3/uL 0-0.6 Abs Basophils 0 10^3/uL 0-0.2 Abs Nucleated RBC 0 10^3/uL Granulocyte % 71.1 % 38-83 Lymphocyte % 19.4 % Low 25-47 Monocyte % 8.6 % 1-9 Eosinophil % 0.4 % 0-6 Basophil % 0.5 % 0-2 Nucleated Red Blood Cells % 0 Comp Metabolic Panel 11/04/2016 Sodium 134 mmol/L 133-145 Potassium 4.4 mmol/L 3.5-5.0 Chloride 102 mmol/L 101-111 Co2 Carbon Dioxide 24 mmol/L 22-32 Anion Gap 8 mmol/L 2-11 Glucose 135 mg/dL High 70-100 Blood Urea Nitrogen 20 mg/dL 6-24 Creatinine 1.40 mg/dL High 0.67-1.17 BUN/Creatinine Ratio 14.3 8-20 Calcium 8.8 mg/dL 8.6-10.3 Total Protein 7.1 g/dL 6.4-8.9 Albumin 3.1 g/dL Low 3.2-5.2 Globulin 4.0 g/dL 2-4 Albumin/Globulin Ratio 0.8 Low 1-3 Total Bilirubin 0.70 mg/dL 0.2-1.0 Alkaline Phosphatase 152 U/L High 34-104 Alt 28 U/L 7-52 Ast 34 U/L 13-39 Egfr Non- 49.5 >60 Egfr 63.7 >60 41 Laboratory test 11/04/2016 Ach Receptor Binding 0.00 nmol/L <=0.02 42 finding AB Laboratory test 09/27/2016 Surgical Pathology SEE RESULT BELOW 43 finding Laboratory test 09/27/2016 Cytology Non-Risk And Insurance Consultant SEE RESULT BELOW 44 finding Laboratory test 05/28/2014 Fluid Crystals None Seen 45 finding Body Fluid C&S 05/28/2014 Body Fluid Cult (SEE NOTE) 46 Gram Stain 1 If clinical suspicion persists, submit new specimen for retesting in 1 to 2 weeks. Test Performed by: [facility] [place] [id number] [place] [address] 2 Test Performed by: [facility] [place] [address] 3 If clinical suspicion persists, submit new specimen for retesting in 1 to 2 weeks. Test Performed by: [facility] [place] [address] 4 If clinical suspicion persists, submit new specimen for retesting in 1 to 2 weeks. Test Performed by: [facility] [place] [address] 5 If clinical suspicion persists, submit new specimen for retesting in 1 to 2 weeks. Test Performed by: [facility] [place] [address] 6 If clinical suspicion persists, submit new specimen for retesting in 1 to 2 weeks. Test Performed by: [facility] [place] [address] 7 If clinical suspicion persists, submit new specimen for retesting in 1 to 2 weeks. Test Performed by: [facility] [place] [address] 8 If clinical suspicion persists, submit new specimen for retesting in 1 to 2 weeks. Test Performed by: [place] [address] 9 If clinical suspicion persists, submit new specimen for retesting in 1 to 2 weeks. Test Performed by: [place] [address] 10 Negative result does not rule out HIV infection. If acute HIV infection is suspected in a high-risk individual, submit plasma specimen for HIV-1 RNA quantification test (HIVDQ) and/or HIV-2 DNA/RNA test (FHV2Q). Test Performed by: [place] [address] 11 Test Result Flag Unit RefValue Strongyloides Ab, IgG, S Negative Negative No detectable levels of IgG antibodies to Strongyloides. Repeat testing in 1-2 weeks if clinically indicated. Test Performed by: [place] [address] 12 If clinical suspicion persists, submit new specimen for retesting in 1 to 2 weeks. Test Performed by: [facility] [place] [address] 13 If clinical suspicion persists, submit new specimen for retesting in 1 to 2 weeks. Test Performed by: [facility] [place] [address] 14 If clinical suspicion persists, submit new specimen for retesting in 1 to 2 weeks. Test Performed by: [facility] [place] [address] 15 If clinical suspicion persists, submit new specimen for retesting in 1 to 2 weeks. Test Performed by: [facility] [place] [address] 16 If clinical suspicion persists, submit new specimen for retesting in 1 to 2 weeks. Test Performed by: [facility] [place] [address] 17 If clinical suspicion persists, submit new specimen for retesting in 1 to 2 weeks. Test Performed by: [facility] [place] [address] 18 If clinical suspicion persists, submit new specimen for retesting in 1 to 2 weeks. Test Performed by: [facility] [place] [address] 19 If clinical suspicion persists, submit new specimen for retesting in 1 to 2 weeks. Test Performed by: [place] [address] 20 If clinical suspicion persists, submit new specimen for retesting in 1 to 2 weeks. Test Performed by: [facility] [place] [address] 21 SEE RESULT BELOW Name: DIYA ASHFORD : [address]: Timmy Montoya MD Acct: [id number] Unit: [id number] AGE: 76 Location: Re12/02/16 SEX: M Status: REG REF SPEC: [id number] BRAD: 12/02/16 [facility] DR: Timmy Montoya MD REQ: [id number] RECD: 12/02/16 STATUS: TUNDE SALINAS DR: Isaac Salazar MD _ ORDERED: FNA-IMG GUID BX, CYTO ADEQ-1ST P, SPEC ST NON-ORG FINAL DIAGNOSIS Buttocks, CT Guided, fine needle aspiration: -- Adipose tissue, positive for amyloid deposition. See comment. Comment: Multiple air dried smears were stained with Congo red and examined under polarized light. The tissue demonstrates diffuse deposition of Congo red positive material which demonstrates apple green birefringence with circular dichroism characteristic of amyloid deposition. Dr. Landa has reviewed this case and concurs. Buttock NEC - CY GUIDED BUTTOCKS FINE NEEDLE ASPIRATION CLINICAL HISTORY Amylodosis IMMEDIATE INTERPRETATION Pass 1 2-adequate GROSS DESCRIPTION CT Guided, fine needle aspiration x 2 passes with 14 Air dried slide(s). Signed (signature on file) Favian Templeton MD 1359 END OF REPORT * ML=Testing performed at Main Lab DEPARTMENT OF PATHOLOGY, [address] [place] [address] Favian Templeton M.D. Director [facility] # [id number] 22 RESULT: Monoclonal gammopathy, Hyperlipidemia, unspecified 23 Locus and probes [Strategy;#Nuclei;Class] 1p36.3(TP73),1q22 [COPY#;50;LDT] 8q24(5'MYC,3'MYC) [BAP;50;ASR] 11q13(CCND1-XT),14q32(IGH-XT) [DFISH;50;ASR] Probe strategies include: DFISH=dual color, double fusion; BAP=break-apart probe; COPY#=region gain and loss. 24 Abnormality Name Result # Abn Total Cells t(11;14) CCND1-XT/IGH-XT Abnormal 6 9 fusion +11(CCND1-XTx3) Normal 0 9 25 RESULT: nuc simon(CCND1-XT,IGH-XT)x3(CCND1-XT con IGH-XTx2) 26 The result is abnormal and indicates a plasma cell clone with with CCND1/IGH fusion; t(11;14). While these results likely represent CCND1/IGH fusion clone, only 9 or fewer plasma cells were analyzed and insufficient plasma cells were observed for chromosomes 1 and 8. Thus, it is unclear if sufficient plasma cells were evaluated to identify all the abnormalities associated with a plasma cell clone and specific prognostic significance cannot be defined. This result indicates persistence or recurrence of this patient's plasma cell clone. Clinical and pathologic correlation is recommended. Additional cytogenetic studies are reported separately. 27 Previous Studies DATE SPECIMEN RESULT 01/26/2015 Marrow Plasma cell FISH abnormal 28 Applicable to Analyte Specific Reagent (ASR) and Laboratory Developed Tests (LDT). This test was developed and its performance characteristics determined by [facility] in a manner consistent with CLIA requirements. It has not been cleared or approved by the U.S. Food and Drug Administration. This FISH test does not rule out other chromosome abnormalities. 29 RESULT: Della Bell D.O. Test Performed by: [facility] - [address] [address] 30 RESULT: Monoclonal gammopathy, Hyperlipidemia, unspecified 31 Locus and probes [Strategy;#Nuclei;Class] 3q27(3'BCL6,5'BCL6) [BAP;200;ASR] 8q24(5'MYC,3'MYC) [BAP;200;ASR] 11q13(CCND1-XT),14q32(IGH-XT) [DFISH;500;ASR] 17p13(TP53),17CEN(D17Z1) [COPY#;200;ASR] 18q21(5'MALT1,3'MALT1) [BAP;200;ASR] 18q21(5'BCL2,3'BCL2) [BAP;200;ASR] Probe strategies include: DFISH=dual color, double fusion; BAP=break-apart probe; COPY#=region gain and loss. 32 RESULT: Interphase FISH is normal for all loci studied. 33 Abnormality Name Result %Abn Cutoff (%) 8q24.1(MYC sep) Normal <6.5% -17p13.1(TP53x1,C10M2b0) Normal <9.5% -17(TP53,D17Z1)x1 Normal <5.5% 18q21(MALT1 sep) Normal <3.5% 18q21(BCL2 sep) Normal <5.5% 3q27(BCL6 sep) Normal <3.5% t(11;14) CCND1-XT/IGH-XT fusion Normal <0.6% 34 This result is within normal limits for the B-cell lymphoma FISH panel. A normal FISH result does not exclude the presence of lymphoma in the bone marrow. Clinical and pathologic correlation is suggested. Additional cytogenetic studies are reported separately. 35 Previous Studies DATE SPECIMEN RESULT 01/26/2015 Marrow Plasma cell FISH abnormal 36 RESULT: Franklyn Pete M.D., Ph.D. Test Performed by: [address] [address] 37 Applicable to Analyte Specific Reagent (ASR) and Laboratory Developed Tests (LDT). This test was developed and its performance characteristics determined by [facility] in a manner consistent with CLIA requirements. It has not been cleared or approved by the U.S. Food and Drug Administration. This FISH test does not rule out other chromosome abnormalities. 38 FINAL DIAGNOSIS: Specimen Source: Right posterior iliac crest bone marrow Flow cytometry immunophenotypic analysis: Interpretative data: Lambda light chain restricted, CD19 positive, CD10 negative B-cell population detected (4% of WBCs, 19% of gated lymphocytes). [place] light chain restricted plasma cells, (less than 1% of WBCs). Blasts: 1% Lymphocytes: B-cells: 15% T-cells/NK cells: No aberrant population detected. Markers tested: CD3, CD10, CD16, CD19, CD34, CD45, kappa surface light chains, lambda surface light chains, 7-AAD. Plasma cell panel: CD19, CD38, CD45, CD138, and cytoplasmic Lambda light chains. Quality Assessment: Acceptable Viability: Acceptable Viable lymphocytes (7-AAD): 94% Specimen received within validated guidelines. A Henderson-Giemsa stained slide prepared from the flow cytometry specimen was examined for quality purposes. Electronically signed by: Favian Templeton MD 12/05/16 1452 Technical component performed by: [facility] [place] [address] Garden Worker: Jamie Porter II, MD, PhD. 39 SEE RESULT BELOW Name: DIYA ASHFORD : [address]: Timmy Montoya MD Acct: [id number] Unit: [id number] AGE: 76 Location: Re12/02/16 SEX: M Status: REG REF SPEC: [id number] BRAD: 12/02/16-[address]: Timmy Montoya MD REQ: [id number] RECD: 12/02/16 STATUS: TUNDE SALINAS DR: Ari Salazar MD _ ORDERED: Bailey, LEVEL 4/2, IMMUNO-FIRST, IMMUNO-ADDL/2, SPEC ST NON-ORG/2 Plasma cell disease has been performed at [facility], [place], [place]. The testing reveals: Specimen: Bone marrow. Method: Locus and probes [Strategy;#Nuclei;Class] 1p36.3(TP73),1q22 [COPY#;50;LDT] 8q24(5'MYC,3'MYC) [BAP;50;ASR] 11q13(CCND1-XT),14q32(IGH-XT) [DFISH;50;ASR] Probe strategies include: DFISH=dual color, double fusion; BAP=break-apart probe; COPY#=region gain and loss. Result Table: Abnormality Name Result # Abn Total Cells t(11;14) CCND1-XT/IGH-XT Abnormal 6 9 fusion +11(CCND1-XTx3) Normal 0 9 Results: nuc simon(CCND1-XT,IGH-XT)x3(CCND1-XT con IGH-XTx2) Interpret: The result is abnormal and indicates a plasma cell clone with CCND1/IGH fusion; t(11;14). While these results likely represent CCND1/IGH fusion clone, only 9 or fewer plasma cells were analyzed and insufficient plasma cells were observed for chromosomes 1 and 8. Thus, it is unclear if sufficient plasma cells were evaluated to identify all the abnormalities associated with a plasma cell clone and specific prognostic significance cannot be defined. This result indicates persistence or recurrence of this patient's plasma cell clone. Clinical and pathologic correlation is recommended. Test Performed by: [facility] - [address] [address] CONTINUED ON NEXT PAGE * ML=Testing performed at [facility] DEPARTMENT OF PATHOLOGY, [address] [place] [address] Favian Templeton M.D. Director JANETH # [id number] RUN DATE: 12/14/16 [facility] LAB LIVE PAGE 2 Patient: DIYA ASHFORD [id number] (Continued) ADDENDUM (Continued) Addendum Signed (signature on file) Sunita Landa MD 1043 B-cell lymphoma has been performed at [facility], [place], [place]. The testing reveals: Specimen: Bone marrow. Method: Locus and probes [Strategy;#Nuclei;Class] 3q27(3'BCL6,5'BCL6) [BAP;200;ASR] 8q24(5'MYC,3'MYC) [BAP;200;ASR] 11q13(CCND1-XT),14q32(IGH-XT) [DFISH;500;ASR] 17p13(TP53),17CEN(D17Z1) [COPY#;200;ASR] 18q21(5'MALT1,3'MALT1) [BAP;200;ASR] 18q21(5'BCL2,3'BCL2) [BAP;200;ASR] Probe strategies include: DFISH=dual color, double fusion; BAP=break-apart probe; COPY#=region gain and loss. Result: Interphase FISH is normal for all loci studied. Result Summary: Normal Result Table: Abnormality Name Result %Abn Cutoff (%) 8q24.1(MYC sep) Normal <6.5% -17p13.1(TP53x1,G31N3z2) Normal <9.5% -17(TP53,D17Z1)x1 Normal <5.5% 18q21(MALT1 sep) Normal <3.5% 18q21(BCL2 sep) Normal <5.5% 3q27(BCL6 sep) Normal <3.5% t(11;14) CCND1-XT/IGH-XT fusion Normal <0.6% Interpret: This result is within normal limits for the B-cell lymphoma FISH panel. A normal FISH result does not exclude the presence of lymphoma in the bone marrow. Clinical and pathologic correlation is suggested. CONTINUED ON NEXT PAGE * ML=Testing performed at Main Lab DEPARTMENT OF PATHOLOGY, [address] [place] [address] Favian Templeton M.D. Director [facility]AN[facility] # [id number] RUN DATE: 12/14/16 [facility] LAB LIVE PAGE 3 Patient: DIYA ASHFORD [id number] (Continued) ADDENDUM (Continued) Additional cytogenetic studies are reported separately. Test Performed by: [facility] [place] [address] Addendum Signed (signature on file) Favian Templeton MD 1454 FINAL DIAGNOSIS 1. Bone marrow, right posterior iliac crest, aspirate: -- Mildly hypercellular bone marrow (for age with mixed trilinear hematopoiesis and monoclonal plasma cell population (5%). -- Monoclonal B-cell population (detected by flow cytometry and immunohistochemistry, up to 10% of nucleated cell population). See comment. -- No amyloid detected by Congo red stain and polarized light examination. -- Minimal iron stores noted on iron stain with appropriate controls. 2. Bone marrow, right posterior iliac crest, core biopsy: -- Mildly hypercellular bone marrow (for age with mixed trilinear hematopoiesis and monoclonal plasma cell population (5%). -- Monoclonal B-cell population (detected by flow cytometry and immunohistochemistry, up to 10% of nucleated cell population). See comment. Comment: A Congo red stain was performed with appropriate controls on part 1 and examined under polarized light. No evidence of amyloid deposition is identified. The following immunohistochemical stains were performed with appropriate controls on part 1. CD138 positive in plasma cells arranged as single cells and clusters (approximately 5%) CD20 positive in diffusely distributed B cells (approximately 10%). CONTINUED ON NEXT PAGE * ML=Testing performed at Main Lab DEPARTMENT OF PATHOLOGY, [address] [place] [address] Favian Templeton M.D. Director [facility] # [id number] RUN DATE: 12/14/16 [facility] LAB LIVE PAGE 4 Patient: DIYA ASHFORD Анна [id number] (Continued) SPECIAL STUDIES (Continued) SPECIAL STUDIES Flow cytometry has been performed at [facility], [place], [place]. The testing reveals: FINAL DIAGNOSIS: Specimen Source: Right posterior iliac crest bone marrow Flow cytometry immunophenotypic analysis: Interpretative data: Lambda light chain restricted, CD19 positive, CD10 negative B-cell population detected (4% of WBCs, 19% of gated lymphocytes). Hoot Owl light chain restricted plasma cells, (less than 1% of WBCs). Blasts: 1% Lymphocytes: B-cells: 15% T-cells/NK cells: No aberrant population detected. Markers tested: CD3, CD10, CD16, CD19, CD34, CD45, kappa surface light chains , lambda surface light chains, 7-AAD. Plasma cell panel: CD19, CD38, CD45, CD138, and cytoplasmic Lambda light chains. Quality Assessment: Acceptable Viability: Acceptable Viable lymphocytes (7-AAD): 94% Specimen received within validated guidelines. A Henderson-Giemsa stained slide prepared from the flow cytometry specimen was examined for quality purposes. Electronically signed by: Favian Templeton MD 12/05/16 1452 Technical component performed by: [place] [address] Garden Worker: Jamie Porter II, MD, PhD. CONTINUED ON NEXT PAGE * ML=Testing performed at Main Lab DEPARTMENT OF PATHOLOGY, [address] [place] [address] Favian Templeton M.D. Director CLIA # [id number] RUN DATE: 12/14/16 [facility] LAB LIVE PAGE 5 Patient: DIYA ASHFORD [id number] (Continued) PRE-OPERATIVE DIAGNOSIS (Continued) PRE-OPERATIVE DIAGNOSIS D47.2 POST-OPERATIVE DIAGNOSIS E78.5 GROSS DESCRIPTION 1. The specimen is received in formalin labeled, Clot RPIC, and consists of a 1.5 x 1.5 x 0.3 cm aggregate of red-brown rubbery blood clot which is entirely submitted in one cassette. 2. The specimen is received in formalin labeled, Bone RPIC, and consists of two patten red-brown irregular soft tissue cores averaging 1.7 x 0.2 cm which are entirely submitted in one cassette following brief decalcification. MICROSCOPIC DESCRIPTION The concurrent CBC with electronic differentials available for review with results as follows WBC 4.9 RBC 5.22 hemoglobin 14.4 hematocrit 45 MCV 86 MCH 28 MCHC 32 RDW 17% platelet count 168,000 with absolute neutrophil 3.4 absolute lymphocyte 1.1 absolute monocyte 0.4 absolute basophil's 0.1. Red cell morphology is normal. The aspirate smears are hemodiluted and essentially aspicular. The touch imprints slide is aspicular . The clot section demonstrates scattered spicules demonstrating 30% cellularity with mixed trilinear hematopoiesis. The M: E ratio is approximately 2-4: 1 with normal appearing myeloid and erythroid maturation. Plasma cells are somewhat increased to 5%. Megakaryocytes are present in normal numbers and morphology. No increase blasts are noted. No lymphoid aggregates are identified. An iron stain performed with appropriate controls demonstrates minimal reserve iron (1+) The core biopsy demonstrates 40% cellularity with mixed trilinear hematopoiesis. The M: E ratio is approximately 4-6: 1 with normal appearing myeloid and erythroid maturation. Plasma cells are mildly increased at 5%. Megakaryocytes are present in normal number and morphology. No increase in blasts noted no lymphoid aggregates noted. No evidence of metastatic neoplasia identified. CONTINUED ON NEXT PAGE * ML=Testing performed at Main Lab DEPARTMENT OF PATHOLOGY, [address] [place] [address] Favian Templeton M.D. Director [facility] # [id number] RUN DATE: 12/14/16 [facility] LAB LIVE PAGE 6 Patient: DIYA ASHFORD [id number] (Continued) MICROSCOPIC DESCRIPTION (Continued) Signed (signature on file) Favian Templeton MD 1547 END OF REPORT * ML=Testing performed at Main Lab DEPARTMENT OF PATHOLOGY, [address] [place] [address] Favian Templeton M.D. Director [facility] # [id number] 40 SEE RESULT BELOW Name: DIYA ASHFORD : [address]: Ari Salazar MD Acct: [id number] Unit: [id number] AGE: 76 Location: [facility] Re11/04/16 SEX: M Status: REG REF SPEC: [id number] BRAD: 11/04/16-1250 [facility] DR: Isaac Ruiz MD REQ: [id number] RECD: 11/04/16-134 STATUS: TUNDE SALINAS DR: Franklyn Guillen MD _ ORDERED: RETICULUM STAIN, TRICHROME STAIN, AMYLOID STAIN, LEVEL V FINAL DIAGNOSIS Liver, right lobe, core biopsy: -- Chronic hepatitis, grade 0 (minimal portal and lobular infiltrates), stage 1 (mild fibrosis confined to portal tracts). Comment: A trichrome stain was performed with appropriate controls the evaluation of this biopsy. A Congo red stain for amyloid was performed with appropriate controls and is negative. A reticulin stain was performed with appropriate controls and demonstrate preserved normal lobular architecture. Multiple level sections were examined in the evaluation of this specimen. This case was discussed with Dr. Ruiz on 11/07/2016. CLINICAL HISTORY No history given GROSS DESCRIPTION The specimen is received in formalin labeled, Liver Right Lobe, and consists of a 1.1 x 0.3 x 0.1 cm aggregate of multiple patten soft tissue cores, which is submitted entirely in one cassette. Signed (signature on file) Favian Templeton MD 1232 END OF REPORT * ML=Testing performed at Main Lab DEPARTMENT OF PATHOLOGY, [address], [place], [place] [address] Favian Templeton M.D. Director [facility] # [id number] 41 Because ethnic data is not always readily available, this report includes an eGFR for both -Americans and non- Americans. The National Kidney Disease Education Program (NKDEP) does not endorse the use of the MDRD equation for patients that are not between the ages of 18 and 70, are , have extremes of body size, muscle mass, or nutritional status, or are non- or non-. According to the National Kidney Foundation, irrespective of diagnosis, the stage of the disease is based on the level of kidney function: Stage Description GFR(mL/min/1.73 m(2)) 1 Kidney damage with normal or decreased GFR 90 2 Kidney damage with mild decrease in GFR 60-89 3 Moderate decrease in GFR 30-59 4 Severe decrease in GFR 15-29 5 Kidney failure <15 (or dialysis) 42 ADDITIONAL INFORMATION This test was developed and its performance characteristics determined by [facility] in a manner consistent with CLIA requirements. This test has not been cleared or approved by the U.S. Food and Drug Administration. Test Performed by: [address] [address] 43 SEE RESULT BELOW Name: DIYA ASHFORD : [address]: Gonzalo Nunez MD Acct: [id number] Unit: [id number] AGE: 76 Location: [facility] 332-01 Re09/27/16 Dis: 09/28/16 SEX: M Status: DIS Kiel SPEC: [id number] BRAD: 09/27/16- SUBM DR: Gonzalo Nunez MD REQ: [id number] RECD: 09/27/16 STATUS: SOUT _ ORDERED: TRICHROME STAIN, AMYLOID STAIN, LEVEL III, LEVEL V FINAL DIAGNOSIS 1. Gallbladder, cholecystectomy: -- Chronic cholecystitis with cholelithiasis. 2. Liver, core biopsy: -- Chronic hepatitis, grade 1 (portal and lobular infiltrates), grade 2 ( portal fibrosis). Comment: Biopsy demonstrates focal patchy portal infiltrate composed predominantly of lymphocytes without limiting plate necrosis or lobular hepatocyte necrosis. There is increased portal collagen deposition though no alteration of overall architecture or evidence of cirrhosis is identified. There is no significant steatosis and no evidence of cholestasis is noted. A trichrome stain was performed with appropriate controls and examined in the evaluation of this specimen. A Congo red stain was performed with appropriate controls and examined under polarized light for evaluation of amyloid deposition and is negative. PRE-OPERATIVE DIAGNOSIS Symptomatic cholelithiasis, ascites and cirrhosis GROSS DESCRIPTION 1. The specimen is received in formalin labeled, Gallbladder, and consists of a 7.2 x 3.1 x 1.0 cm previously disrupted gallbladder. The serosa is smooth to wrinkled patten-desir. Within the lumen, there are a few black spiculated choleliths ranging from 0.2 cm to 0.7 cm in greatest dimension admixed with scant green viscid bile. The mucosa is velvety to reticulated green and the wall thickness averages 0.1 cm. Program Checker sections, one cassette. 2. The specimen is received in formalin labeled, Liver Biopsy, and consists of a 1.5 x 0.1 CONTINUED ON NEXT PAGE * ML=Testing performed at Main Lab DEPARTMENT OF PATHOLOGY, [address] [place] [address] Favian Templeton M.D. Director [facility] # [id number] RUN DATE: 09/29/16 [facility] LAB LIVE PAGE 2 Patient: DIYA ASHFORD [id number] (Continued) GROSS DESCRIPTION (Continued) GROSS DESCRIPTION (Continued) cm patten soft tissue core admixed with scant red-brown blood clot. Entirely submitted, one cassette. Signed (signature on file) Favian Templeton MD 1647 END OF REPORT * ML=Testing performed at Main Lab DEPARTMENT OF PATHOLOGY, [address] [place] [address] Favian Templeton M.D. Director [facility] # [id number] 44 SEE RESULT BELOW Name: JEANADIYA PRITCHETT Анна : [address]: Gonzalo Nunez MD Acct: [id number] Unit: [id number] AGE: 76 Location: [facility] 332-01 Re09/27/16 SEX: M Status: ADM Kiel SPEC: [id number] BRAD: 09/27/16-1640 [facility] DR: Gonzalo Nunez MD REQ: [id number] RECD: 09/27/16 STATUS: SOUT _ ORDERED: THIN PREP NON G FINAL DIAGNOSIS Peritoneal fluid: -- Negative for malignant cells. -- Mixed lymphoid elements, macrophages and scattered mesothelial elements only. 1. PERITONEAL - PERITONEAL FLUID GROSS DESCRIPTION 35 mls of cloudy yellow/green fluid. Signed (signature on file) Favian Templeton MD 1327 END OF REPORT * ML=Testing performed at Main Lab DEPARTMENT OF PATHOLOGY, [address] [place] [address] Favian Templeton M.D. Director [facility] # [id number] 45 Synovial (Joint) Fluid 46 RUN DATE: 06/01/14 [facility] LAB LIVE PAGE 1 RUN TIME: [address] [place] [address] Specimen Inquiry Name: DIYA ASHFORD : [address]: Dominic Jensen MD Acct: [id number] Unit: [id number] AGE: 74 Location: [facility] Re05/28/14 SEX: M Status: REG REF SPEC: [id number] BRAD: 05/28/14 [facility] DR: Dominic Jensen MD REQ: [id number] RECD: 05/28/14 STATUS: COMP _ SOURCE: JOINT FLUI SPDESC:KNEE LEFT ORDERED: BF Cult/GS Procedure Result Verified Site Body Fluid Gram Stain Final 05/28/14- 1055 ML 4+ Neutrophils No Organisms Seen BY CENTRIFUGED SMEAR Body Fluid Culture Final 06/01/14- 0815 ML No Growth Day 4 END OF REPORT * ML=Testing performed at Main Lab DEPARTMENT OF PATHOLOGY, [address] [place] [address] Favian Templeton M.D. Director [facility] # [id number] Procedures Date CPT Code Description Status 02/23/2017 59294 ECHO Transthorasic Realtime 2D W Doppler & Color Completed Flow Hosp 11/04/2016 85195 Ultrasound Guidance For Vascular Access Completed 11/04/2016 25305 Transcatheter Biopsy Radiology Completed 11/04/2016 95193 Venography Liver W/Hemodynamic Evaluation Completed 11/04/2016 14975 Transcatheter Biopsy Completed 11/04/2016 63150 Catheter Placement Venous Second Order Branch Completed 09/27/2016 91047 Laparoscopy Cholecystectomy Completed 09/27/2016 89822 Laparoscopy Cholecystectomy Completed 09/27/2016 56359 Biopsy Liver W/Other Major Procedure Completed 05/28/2014 27092 Rad Exam; Knee, Ap&L Completed 05/28/2014 36045 Rad Exam; Knee, Ap&L Completed 05/28/2014 97605 Rad Exam; Pelvis Completed 02/03/2012 55663 Rad Exam; Foot Comp Completed Encounters Type Date Location Provider [facility] E/M Dx Office Visit 08/14/2017 [facility] Tommy Wei, 40739 R18.8 2:40p Infectious Diseases M.D. Office Visit 07/10/2017 [facility] Tommy Wei, 26101 K73.9 3:40p Infectious Diseases MPolly R18.8 Office Visit 03/30/2017 9:45a Pulmonology [place] [address] G47.33 [facility] Office Visit 09/27/2016 2:49p [facility] Shruti 37661 K70.31 Hospitalists DARLENE Shields G47.33 I10 Z90.49 Office Visit 08/10/2016 1:30p [facility] [place], [address] K80.20 [facility] FACS Office Visit 03/01/2016 9:45a [facility]ology [place] [address] G47.33 [facility] K21.9 E66.01 Office Visit 07/07/2014 9:15a [facility] Jensen M.D. 73443 724.4 C.M.A. Office Visit 06/30/2014 8:45a Pulmonology [place] [address] 327.23 Services [facility] Room Operator 719.46 Office Visit 06/11/2014 9:15a [facility]ic Jensen M.D. 64501 715.16 C.M.A. Office Visit 05/28/2014 8:00a [facility] Jensen M.D. 15975 715.16 C.M.A. Office Visit 03/05/2012 11:15a [facility] [place] 92857 845.10 C.Harry Otto Office Visit 02/10/2012 8:15a [facility] [place] 92616 729.5 C.MSerena Otto Office Visit 02/03/2012 11:30a [facility] 85911 729.5 C.MSerena Otto Plan of Care Future Appointment(s):10/03/2017 10:00 am - Angelic Olmedo M.D. at [facility]09/27/2017 9:00 am - Angelic Olmedo M.D. at [facility]/30/2018 9:00 am - Miriam Anguiano MD at [facility]09/21/2017 - Angelic Olmedo M.D.Z95.0 Presence of cardiac pacemakerNew Orders:Pacemaker Generator Change-Dual Lead SystemFollow up:Wound check 1 week with me, any location.
[2017-09-22 11:38] LABS: ABS Basophils 0 10^3/ul (0-0.2); ABS Eosinophils 0 10^3/ul (0-0.6); ABS Lymphocytes 0.9 10^3/ul (1.0-4.8); ABS Monocytes 0.4 10^3/ul (0-0.8); ABS Neutrophils 2.5 10^3/ul (1.5-7.7); ABS Nucleated RBC 0 10^3/ul; Eosinophil % 0.9 % (0-6); Hematocrit 36 % (42-52); Hemoglobin 11.6 g/dl (14.0-18.0); Lymphocyte % 24.1 % (25-47); Mean Corpuscular HGB Conc 33 g/dl (31-36); Mean Corpuscular Hemoglobin 28 pg (27-31); Mean Corpuscular Volume 86 fL (80-94); Mean Platelet Volume 9 um3 (7.4-10.4); Nucleated Red Blood Cells % 0.1; Platelet Count 224 10^3/ul (150-450); Red Blood Count 4.15 10^6/ul (4.0-5.4); Red Cell Distribution Width 18 % (10.5-15); White Blood Count 3.8 10^3/ul (3.5-10.8)
--- NOTE | 2017-09-22 14:01 | CONSULT ---
Subjective Date of Service: 09/22/17 Interval History: Date of admission and consult 09/22/2017 Heme/Onc service Dr. Guillen PMD: Dr. Johnston Golf Ball Winder: Dr. Olmedo CC: Syncope Reason for consult: Syncope, pacemaker syndrome HPI Mr. Ashford is a 77 year old man with a history as below who recently reached replacement indication on his pacemaker and automatic switch to VVI asynchronous mode. Device check 09/15/2017 was noted to have DDD programming. He has felt poor for the last week including weak, tired, "empty" inside and generalized feeling unwell similar to how he did before he received his pacemaker. He has also noted ZARCO last few weeks and was going to have a paracentesis today with Dr. Guillen and had sudden onset of syncope. It was 10 minutes after a lab draw and there were no acute triggers. An EKG today shows NSR, V-paced, complete AV dissociation. A device interrogation showed VVI mode and no arrhythmias. I discussed with [facility] device specialist and there is no way to temporarily override this setting. He denies any palpitations or chest discomfort. His is present today. Allergies: Latex 07/09/13 Adhesive Tape 07/09/13 Horse Serum 02/28/17 Pmhx: obesity Gastroesophageal reflux disease Sprain of foot Coronary Artery Disease (CAD) - Stent to Cx 1997, Cath 2004: 50% Cx occlusion, med management. 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 Hypertension Renal Insufficiency - Renal Bx 2016 Sleep Apnea - CPAP Surgical Hx: Appendectomy Pace Maker - (2006) 2006, Medtronic Bladder Surgery - TURB Transurethral Resection Of Prostate (TURP) Cholecystectomy - (09/27/2016) Cataract Removal FH: Heart Disease Cancer - Bladder. 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 Personal Habits: Smoking: Patient is a former smoker - smoked for 25yrs, 3PPD. Quit at age 62yrs.Cigarette Use: Former Cigarette Smoker.Alcohol: Occasionally consumes alcohol.Drug Use: Denies Drug Use.Daily Caffeine: Does Not Consume Caffeine.Exercise Type: Does not exercise. Medications Active Medications: Aspirin (Aspirin Ec Low Dose*) 81 mg PO QAM IVANA Furosemide (Lasix Iv*) 40 mg IV BID [facility] Heparin Sodium (Porcine) (Heparin Vial(*)) 5,000 units SUBCUT Q8HR [facility] Spironolactone (Aldactone Tab*) 25 mg PO BID [facility] Home Medications: Aspirin EC Low Dose* [Ecotrin EC Low Dose 81 MG*] 81 mg PO QAM 07/19/16 [ History Confirmed 09/22/17] Furosemide TAB* [Lasix TAB*] 40 mg PO BID 10/18/16 [History Confirmed 09/22/17] Spironolactone TAB* [Aldactone TAB 25 MG*] 50 mg PO QPM 11/28/16 [History Confirmed 09/22/17] Review of Systems - Review of Systems Constitutional Symptoms: Positive: Weight Gain, Weakness, Fatigue Dermatology: Negative: Rash, Skin Lesions HEENT: Negative: Change in Hearing, Vertigo, Tinnitus Eyes: Negative: Change in Vision, Double Vision Thyroid: Positive: Weight Gain Negative: Goiter, Thyroid Nodule, Cold Intolerance, Heat Intolerance, Sweatiness, Constipation, Palpitations, Primary Hypothyroidism, Primary Hyperthyroidism, Weight Loss Pulmonary: Positive: Shortness of Breath, Exercise Intolerance Negative: Cough, Sputum, Hemoptysis, Wheezing, Respiratory Distress, Asthma, Home Oxygen Cardiology: Positive: Shortness of Breath, Swelling of Ankles, Edema, Syncope Negative: Chest Pain, Palpitations, Claudication Gastroenterology: Negative: Abdominal Pain, Nausea, Vomiting, Anorexia, Difficulty Swallowing, Heartburn, Constipation, Diarrhea, Blood in Stools, Change in Bowel Habits, Haematemesis, Melena Genital - Urinary: Negative: Dysuria, Hematuria, Polyuria, Nocturia Genitourinary - Male: Negative: Prostatism Musculoskeletal: Negative: Joint Pain, Joint Stiffness Endocrinology: Positive: Obesity Negative: Calluses, Polydipsia, Polyuria Hematologic/Lymphatic: Positive: Use of Antiplatelet Drugs Negative: Hx Leukemia, Hx Lymphoma, Use of Anticoagulant Neurology: Negative: Headaches, Migraines, Change in Vision, Change in Balancing, Change in Coordination, Change in Memory, Change in Speech, Change in Sphincter Function, Change in Walking, Numbness\\Paresthesiae, Hx of Stroke\\TIA, Hx Seizures Psychiatry: Negative: Unusual Anxiety, Hypomania Allergic/Immunologic: Negative: Hx HIV, Immunocompromise Review of Systems Statement: All other review of systems negative, unless stated above. Objective Vital Signs: Temp Pulse Resp BP Pulse Ox 97.1 F 66 18 123/65 100 09/22/17 10:38 09/22/17 10:38 09/22/17 10:38 09/22/17 10:38 09/22/17 10:38 Oxygen Devices in Use Now: None Appearance: nad, pleasant Ears/Nose/Mouth/Throat: Clear Oropharnyx, Mucous Membranes Moist Neck: Trachea Midline, - - uncertain jvp Respiratory: Symmetrical Chest Expansion and Respiratory Effort, Clear to Auscultation Cardiovascular: RRR, - - no significant murmur, pacemaker site intact, 2-3+ pitting edema b/l Abdominal: - - abdomen distended, soft, not tense Extremities: No Clubbing, Cyanosis Skin: No Rash or Ulcers Neurological: Alert and Oriented x 3 Laboratory Results: 09/22/17 09:00 09/22/17 11:45 Troponin I 0.00 x 2 09/22/2017 N a133, k 4.3, bun 38, cr 1.88, albumin 2.7 Diagnostic Imaging: STUDIES: Pacemaker interrogation from 09/15/2017 (remote download) confirms he has a Medtronic Adapta ADDRL1, serial #[id number]. He is programmed in DDD mode with a lower rate of 50 bpm, upper tracking rate of 130 bpm and had reached replacement. 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 Labs from 09/01/2017 shows sodium 133, potassium 4.9, chloride 101, bicarb 26, glucose 115, BUN 43, creatinine 2.09, AST 27. Assessment/Plan In summary, Bernardo Ashford is a 77 year man with a past medical history as above admitted with symptomatic volume overload and pacemaker syndrome with syncope secondary to automatic switching to asynchronous VVI mode as battery approaches end of life. - Change lasix from 40 mg po to IV BID (ordered) for diuresis, uptitrate as needed - Continue home aldactone 50 mg total (25 mg po bid) daily (ordered) - Continue daily aspirin 81 mg po daily - Check i/o, weights (ordered) - Check daily BMP - Check TTE (ordered) - Plan on generator change Monday09/25/[address] Olmedo. Patient is pacemaker dependent. Thank you for allowing me to participate in the cardiovascular care of this patient. Please do not hesitate to contact me with questions or concerns.
[2017-09-22] MEDS: Furosemide IV* 10 MG/ML VIAL (40 MG) IV SCH ×2 (14:44→21:28)
[2017-09-22] MEDS: Heparin VIAL(*) 5000 UNITS/ML VIAL (FIVE THOUSAND) SUBCUT SCH ×2 (14:44→21:28)
[2017-09-22] MEDS: Spironolactone TAB* 25 MG PO SCH ×2 (14:44→21:29)
--- NOTE | 2017-09-22 15:01 | HP ---
AMENDED REPORT TO CORRECT ACCOUNT NUMBER WRONG ACCOUT CHOSEN BY SALES COMMISSIONS ANALYST - YOSHI BEFORE ADJUSTMENT CC: Dr. Ward.* HISTORY AND PHYSICAL: DATE OF ADMISSION: 09/22/17 REASON FOR ADMISSION: Syncope. HISTORY OF PRESENT ILLNESS: Mr. Ashford is a 77-year-old male followed in our clinic for cirrhosis and recurrent ascites as well as monoclonal protein and prior history of an amyloidosis proven negative. He presented for a routine paracentesis, last done 3 weeks ago. He has had some difficulty with hypotension secondary to diuretics with dose adjustments throughout the last several months. He has had increasing dizziness over the past 1 to 2 weeks. He has had a few episodes at home where he felt dizzy and he needed to sit down. has noted that he can be unstable at times. He has had no passing out. With this complaint, he saw Dr. Olmedo yesterday. She looked at his pacemaker and noted the battery had gone out, last replaced 10 years ago. He is on schedule next Monday for permanent pacemaker replacement. According , he had history of tachycardia which required placement of a pacer. On presentation today he was getting his vital signs done and had a sudden syncopal episode. He passed out and was unresponsive for approximately 30 seconds. Nurse called the cath team. After lying flat, he woke up. He had no mental status changes after the episode. He had no seizure-like symptoms per nursing report. He was alert and oriented within 5 minutes of the episode. Vital signs taken after he was lying flat was essentially stable with a normal blood pressure. He had an EKG with left bundle branch block and a rate of 65. He was noted to be diaphoretic during the episode. He denied chest pain, palpitations, or nausea. We are going to defer his paracentesis and admit him to telemetry. Dr. Yves Mena was called and we discussed the case. At home, no fever, chills or night sweats. He has had stable urination on his diuretics. He has been eating well. There is mild abdominal pain with his ascites, but nothing unusual. PAST MEDICAL HISTORY: 1. Liver failure. He has cryptogenic cirrhosis with refractory ascites. He is followed by myself, evaluated by Dr. Ward, and he is seen by a liver specialist at [facility]. Has been managed with repeat paracenteses approximately every 3 weeks. 2. Supraventricular tachycardia. Pacemaker placed 10 years ago and then as noted above. Followed by Dr. Olmedo. 3. Coronary artery disease, 4 stents placed. Currently on anticoagulation. 4. Hyperlipidemia. 5. Arthritis. 6. BPH. 7. Superficial bladder cancer in the past. PAST SURGICAL HISTORY: Cardiac stents as noted. He has had an appendectomy and he has had cataract surgery. MEDICATIONS: 1. Lasix 80 mg daily. 2. Spironolactone 50 mg daily. ALLERGIES: HORSE SERUM and MIDODRINE. FAMILY HISTORY: Father of bladder cancer. Brother had colon cancer. Two other siblings are healthy. Family history of colon polyps. REVIEW OF SYSTEMS: He has had chronic fatigue, no fever, chills or night sweats. HEENT: Cataract surgery, he has had bloody noses in the past, none recently. Endocrine: Negative. Hematologic: Negative. Lymphatic: Negative. Respiratory: No shortness of breath, cough. Cardiac: As noted above. Coronary artery disease and a pacemaker. Gastrointestinal: Fluid increase over 3 weeks with tense ascites.. He is eating. : Urinating fine. Musculoskeletal: Strength has been stable. Chronic arthritis, not active. Skin: Negative. Neurologic: Negative except passing out today. PHYSICAL EXAMINATION VITAL SIGNS: BP 105/80, respirations 18, pulse 65, weight 228, temperature 98.0. HEENT: Mucosa moist. No lesions. No scleral icterus. No JVD. LUNGS: Clear to auscultation. HEART: 65 and regular rate and rhythm. Pacemaker in place. ABDOMEN: Tense ascites, fluid wave. No hepatosplenomegaly. Nontender. Decreased bowel sounds. EXTREMITIES: +2 edema bilaterally, stable. Good pulses x4. NEUROLOGIC: On my exam, alert and oriented x3. Grossly nonfocal. LABORATORY DATA: Chemistry today shows a creatinine of 2.09 near his baseline , potassium 4.9, magnesium pending, albumin 2.9 which is stable and LFTs are stable with a bilirubin of 0.5, alk phos of 119. ASSESSMENT AND PLAN: A 77-year-old man with history of cryptogenic cirrhosis and refractory ascites as well as coronary artery disease and tachyarrhythmias. Syncopal episode this morning in clinic. 1. Case was discussed with Dr. Yves Mena. We will admit him to telemetry, check his troponin now and then in 4 hours. Consider interrogation of his pacemaker. 2. We will check CBC today in addition to the chemistries already sent and check magnesium. 3. Aspirin 81 mg a day. We will hold on other medicines such as beta-paramjit pending Cardiology consultation. 4. He has been off his Lipitor because of liver disease. We can check a cholesterol panel. 5. Hold on paracentesis until stable. 6. Discharge pending cardiology input. [id number]/[facility] #: [id number]
--- NOTE | 2017-09-22 15:40 | ECHO ---
Patient: DIYA FRANCO [facility] Rec#: [id number] : 1940 Date: 09/22/2017 Age: 77y Height: 180.34 cm / 71.0 in Weight: 105.23 kg / 231.9 lbs Sex: M BSA: 2.25 Room#: 452 Admit Date#: 09/22/2017 Type: Inpatient Referring: Yves Mena DO Reading: Yves Mena DO [employer] Technical: Shruti Peña RDCS CC: Franklyn Johnston MD Transthoracic Echocardiogram Indication: Syncope BP: 123/65 HR: 74 Rhythm: Paced Findings History: S/P pacer, HLD, monoclonal gammopathy, amyloidosis, and former smoker. Technical Comments: The study quality is fair. The study is technically limited due to poor acoustic windows. Completed at 1515. Left Ventricle: The left ventricular chamber size is normal. Mild concentric left ventricular hypertrophy is observed. There is normal left ventricular systolic function. The estimated ejection fraction is 60-65%. There is abnormal ventricular septal wall motion consistent with right ventricular pacemaker. The assessment of diastolic function is non-diagnostic. Left Atrium: The left atrial chamber size is normal. Right Ventricle: The right ventricular chamber size and systolic function are within normal limits. A pacemaker wire is visualized in the right ventricle. Right Atrium: The right atrial cavity size is normal. A pacemaker wire is visualized in the right atrium. Aortic Valve: The aortic valve is trileaflet. The aortic valve leaflets are mildly thickened. There is aortic annular calcification.that is mild There is a trace of aortic regurgitation. There is no evidence of aortic stenosis. Mitral Valve: The mitral valve leaflets are mildly thickened. There is mild mitral regurgitation. There is no evidence of mitral stenosis. Tricuspid Valve: The tricuspid valve leaflets are normal. There is mild tricuspid regurgitation. The right ventricular systolic pressure is estimated at 37 mmHg. There is evidence of mild pulmonary hypertension. There is no tricuspid stenosis. Pulmonic Valve: The pulmonic valve appears normal. There is a trace pulmonic regurgitation. There is no pulmonic stenosis. Pericardium: There is no significant pericardial effusion. Aorta: There is no dilatation of the ascending aorta. The aortic arch is not well visualized. The aortic root is normal in size. Pulmonary Artery: The main pulmonary artery appears normal. Venous: The inferior vena cava is dilated. There is an approximate 50% respiratory change in the inferior vena cava dimension. Conclusions The left ventricular chamber size is normal. Mild concentric left ventricular hypertrophy is observed. There is abnormal ventricular septal wall motion consistent with right ventricular pacemaker. There is normal left ventricular systolic function. The estimated ejection fraction is normal at 60-65%. The left atrial chamber size is normal. The right ventricular chamber size and systolic function are within normal limits. A pacemaker wire is visualized in the right ventricle. No more than mild valvular regurgitation noted. There is evidence of mild pulmonary hypertension. There appears to be subdiaphramatic contents pushing into the inferior/inferolateral wall and right atrium. Compared to prior study from 01/2017, most significant cardiac change is LVEF is now normal was mildly reduced previously. Measurements Name Value Normal Range RVIDd (AP) 2D 2.5 cm (0.9 - 2.6) RVDdMajor (2D) 4.5 cm (2.2 - 4.4) RAd ISD 4CH 4.8 cm (3.4 - 4.9) RA (A4C)W 4.6 cm (2.9 - 4.6) IVSd (2D) 1.2 cm (0.6 - 1) LVPWd (2D) 1.1 cm (0.6 - 1) LVIDd (2D) 4.1 cm (3.6 - 5.4) LVIDs (2D) 2.5 cm - LV FS (2D) 41 % (25 - 45) Aortic Annulus 1.9 cm (1.4 - 2.6) Ao root diameter (2D) 3.3 cm (2.1 - 3.5) Ascending Ao 3 cm (2.1 - 3.4) LA dimension (AP) 2D 3.2 cm (2.3 - 3.8) LAd ISD 4CH 6.2 cm (2.9 - 5.3) LA ISD 4CH W 4.2 cm (2.5 - 4.5) Name Value Normal Range LA ESV SP 4CH (A/L) 56 ml - LA ESV SP 2CH (A/L) 63 ml - LA ESV BP (A/L) 60 ml - LA ESV BP (A/L) index 27 ml/m2 - LA ESV SP 4CH (MOD) 53 ml - LA ESV SP 2CH (MOD) 61 ml - Name Value Normal Range MV E-wave Vmax 0.86 m/sec - MV deceleration time 272.3 msec - MV A-wave Vmax 1.13 m/sec - MV E:A ratio 0.76 ratio - LV septal e' Vmax 0.07 m/sec - LV lateral e' Vmax 0.14 m/sec - LV E:e' septal ratio 12.29 ratio - LV E:e' lateral ratio 6.14 ratio - Name Value Normal Range AV Vmax 1.33 m/sec - AV VTI 26.51 cm - AV peak gradient 7.19 mmHg - AV mean gradient 4.1 mmHg - LVOT Vmax 1.18 m/sec - LVOT VTI 22.43 cm - LVOT peak gradient 5.63 mmHg - LVOT mean gradient 2.89 mmHg - JEFFREY Vmax 0.84 m/sec - Name Value Normal Range MR Vmax 5.46 m/sec - MR VTI 173.3 cm - MR flow (PISA) 27 ml/sec - MR ERO 0.05 cm2 - MR PISA radius 0.3 cm - MR alias Vmax 37.1 cm/sec - Name Value Normal Range TR Vmax 2.7 m/sec - TR peak gradient 29 mmHg - RAP 8 mmHg - RVSP 37 mmHg - IVC diameter 2.3 cm - Name Value Normal Range PV Vmax 1.32 m/sec - PV peak gradient 7.02 mmHg -
[2017-09-23] MEDS: Heparin VIAL(*) 5000 UNITS/ML VIAL (FIVE THOUSAND) SUBCUT SCH ×3 (05:30→20:37)
[2017-09-23 05:37] LABS: ABS Basophils 0 10^3/ul (0-0.2); ABS Eosinophils 0 10^3/ul (0-0.6); ABS Lymphocytes 0.5 10^3/ul (1.0-4.8); ABS Monocytes 0.4 10^3/ul (0-0.8); ABS Neutrophils 2.6 10^3/ul (1.5-7.7); ABS Nucleated RBC 0 10^3/ul; Eosinophil % 0.2 % (0-6); Hematocrit 31 % (42-52); Hemoglobin 10.3 g/dl (14.0-18.0); Lymphocyte % 14.7 % (25-47); Mean Corpuscular HGB Conc 34 g/dl (31-36); Mean Corpuscular Hemoglobin 28 pg (27-31); Mean Corpuscular Volume 85 fL (80-94); Mean Platelet Volume 9 um3 (7.4-10.4); Nucleated Red Blood Cells % 0; Platelet Count 181 10^3/ul (150-450); Red Blood Count 3.63 10^6/ul (4.0-5.4); Red Cell Distribution Width 18 % (10.5-15); White Blood Count 3.5 10^3/ul (3.5-10.8)
[2017-09-23 05:45] LABS: EGFR Non-African American 29.8 (>60)
[2017-09-23] MEDS ORDERED: Albumin Human 25%* 25 GM/100 ML BTL IV ONE ×2 (08:00)
[2017-09-23] MEDS ORDERED: Albumin Human 25%* 25 GM/100 ML BTL IV SCH (08:00)
--- NOTE | 2017-09-23 08:41 | PN ---
Progress Note - Progress Note Date of Service: 09/23/17 SOAP: Subjective: []Doing ok, feels a little better. Abd very tight. No passing out, no chest pain. Case discussed with Cardiology, PPM replacement on Monday. Aspirin (Aspirin Ec Low Dose*) 81 mg PO QAM [facility] Furosemide (Lasix Iv*) 40 mg IV BID [facility] Last Admin: 09/22/17 21:28 Dose: 40 mg Heparin Sodium (Porcine) (Heparin Vial(*)) 5,000 units SUBCUT Q8HR [facility] Last Admin: 09/23/17 05:30 Dose: 5,000 units Spironolactone (Aldactone Tab*) 25 mg PO BID [facility] Last Admin: 09/22/17 21:29 Dose: 25 mg Objective: [] Vital Signs Temp Pulse Resp BP Pulse Ox 97.6 F 65 16 124/68 98 09/23/17 05:39 09/23/17 05:39 09/23/17 06:56 09/23/17 05:39 09/23/17 05:39 HEENT - no oral lesions, moist. CTA RRR S1S2 at 64 + ascites, +BS, NT Ext +2 edema Neuro AAOx3 Assessment: []77 year old with chronic liver disease and ascities as well as paced rhythem who presented with syncope after PPM went into battery saving mode. Today doing well. Plan: []1. Modification of diuretics per cardiology, will follow Cr, Mg and K 2. Echo pending 3. PPM placement on Monday 4. Paracentesis today, 10L and transfuse 50 G Albumin 5. Intermittent compression stockings.
[2017-09-23] MEDS: Furosemide IV* 10 MG/ML VIAL (40 MG) IV SCH (11:15)
[2017-09-23] MEDS: Spironolactone TAB* 25 MG PO SCH ×2 (11:15→20:36)
[2017-09-23] MEDS: Aspirin EC Low Dose* 81 MG TAB.EC PO SCH (11:15)
--- NOTE | 2017-09-23 13:32 | PN ---
Subjective Date of Service: 09/23/17 Interval History: f/u volume overload, pacemaker syndrome with syncope Had large volume paracentesis this AM No syncope or presyncope but head still feels empty and generally feels unwell Medications Active Medications: Aspirin (Aspirin Ec Low Dose*) 81 mg PO QAM [facility] Last Admin: 09/23/17 11:15 Dose: 81 mg Furosemide (Lasix Iv*) 40 mg IV DAILY [facility] Heparin Sodium (Porcine) (Heparin Vial(*)) 5,000 units SUBCUT Q8HR [facility] Last Admin: 09/23/17 05:30 Dose: 5,000 units Spironolactone (Aldactone Tab*) 25 mg PO BID [facility] Last Admin: 09/23/17 11:15 Dose: 25 mg Objective Vital Signs: Temp Pulse Resp BP Pulse Ox 97.2 F 65 18 104/53 100 09/23/17 11:40 09/23/17 11:40 09/23/17 11:40 09/23/17 11:40 09/23/17 11:40 Oxygen Devices in Use Now: None Appearance: nad, pleasant Ears/Nose/Mouth/Throat: Clear Oropharnyx, Mucous Membranes Moist Neck: Trachea Midline, - - uncertain jvp Respiratory: Symmetrical Chest Expansion and Respiratory Effort, Clear to Auscultation Cardiovascular: RRR, - - no significant murmur, pacemaker site intact, 2-3+ pitting edema b/l Abdominal: - - abdomen distended, soft, not tense Extremities: No Clubbing, Cyanosis Skin: No Rash or Ulcers Neurological: Alert and Oriented x 3 Laboratory Results: 09/23/17 05:19 09/23/17 05:19 09/22/17 09/22/17 11:45 17:33 Troponin I 0.00 0.00 Diagnostic Imaging: STUDIES: Pacemaker interrogation from 09/15/2017 (remote download) confirms he has a Medtronic Adapta ADDRL1, serial #[id number]. He is programmed in DDD mode with a lower rate of 50 bpm, upper tracking rate of 130 bpm and had reached replacement. Carelink device evaluation today: Mode VVI with LRL 65 bpm, SCIENCE TEACHER/VITO, 99.9% SLURRY TANK TENDER, no ventricular arrhythmias Echo done at [facility] on 02/23/2017 showed moderate left ventricular hypertrophy with an ejection fraction of 45-50% and LV desynchrony, atrial septal aneurysm, mild mitral insufficiency, mild tricuspid insufficiency , and moderate pleural effusion. Labs from 09/01/2017 shows sodium 133, potassium 4.9, chloride 101, bicarb 26, glucose 115, BUN 43, creatinine 2.09, AST 27. Assessment/Plan In summary, Bernardo Ashford is a 77 year man with a past medical history of liver and kidney failure with recurrent ascites admitted with symptomatic volume overload and pacemaker syndrome with syncope secondary to automatic switching to asynchronous VVI mode as battery approaches end of life. Echo also showed RA and LV compression from subdiaphramatic contents now s/p large volume paracentesis - Change lasix from 40 mg IV BID to QD (ordered) - Continue home aldactone 50 mg total (25 mg po bid) daily (ordered) - Continue daily aspirin 81 mg po daily - Check daily BMP - Hold DVT prophylaxis after Monday - Plan on generator change Monday09/25/2017. Patient is pacemaker dependent. Thank you for allowing me to participate in the cardiovascular care of this patient. Please do not hesitate to contact me with questions or concerns.
[2017-09-23] MEDS ORDERED: Acetaminophen TAB* 325 MG PO PRN (21:52)
[2017-09-24] MEDS: Heparin VIAL(*) 5000 UNITS/ML VIAL (FIVE THOUSAND) SUBCUT SCH ×3 (05:21→20:23)
[2017-09-24 06:47] LABS: ABS Basophils 0 10^3/ul (0-0.2); ABS Eosinophils 0 10^3/ul (0-0.6); ABS Lymphocytes 0.5 10^3/ul (1.0-4.8); ABS Monocytes 0.3 10^3/ul (0-0.8); ABS Neutrophils 1.9 10^3/ul (1.5-7.7); ABS Nucleated RBC 0 10^3/ul; Eosinophil % 0.9 % (0-6); Hematocrit 31 % (42-52); Hemoglobin 10.2 g/dl (14.0-18.0); Lymphocyte % 17.8 % (25-47); Mean Corpuscular HGB Conc 33 g/dl (31-36); Mean Corpuscular Hemoglobin 28 pg (27-31); Mean Corpuscular Volume 85 fL (80-94); Mean Platelet Volume 9 um3 (7.4-10.4); Nucleated Red Blood Cells % 0; Platelet Count 134 10^3/ul (150-450); Red Blood Count 3.61 10^6/ul (4.0-5.4); Red Cell Distribution Width 18 % (10.5-15); White Blood Count 2.8 10^3/ul (3.5-10.8)
[2017-09-24 07:05] LABS: EGFR Non-African American 33.7 (>60)
--- NOTE | 2017-09-24 08:51 | PN ---
Progress Note - Progress Note Date of Service: 09/24/17 SOAP: Subjective: []Doing well. Belly feels much better. Has continued to leak fluid overnight. No chest pain. Not passing out. Acetaminophen (Tylenol Tab*) 650 mg PO ONCE PRN PRN Reason: HEADACHE Stop: 09/24/17 21:51 Aspirin (Aspirin Ec Low Dose*) 81 mg PO QAM [facility] Last Admin: 09/23/17 11:15 Dose: 81 mg Furosemide (Lasix Iv*) 40 mg IV DAILY [facility] Heparin Sodium (Porcine) (Heparin Vial(*)) 5,000 units SUBCUT Q8HR [facility] Last Admin: 09/24/17 05:21 Dose: 5,000 units Spironolactone (Aldactone Tab*) 25 mg PO BID [facility] Last Admin: 09/23/17 20:36 Dose: 25 mg Objective: [] Vital Signs Temp Pulse Resp BP Pulse Ox 97.3 F 65 18 101/43 98 09/24/17 07:32 09/24/17 07:32 09/24/17 07:32 09/24/17 07:32 09/24/17 07:32 HEENT - no oral lesions, moist. CTA RRR S1S2 at 64 + ascites but better, +BS, NT. Fluid leaking, soaking bandage and towel. Ext +2 edema Neuro AAOx3 Assessment: []77 year old with chronic liver disease and ascities as well as paced rhythem who presented with syncope after PPM went into battery saving mode. Today doing well. Plan: []1. Modification of diuretics per cardiology, will follow Cr, Mg and K 2. Echo pending 3. PPM placement on tomorrow. 4. Paracentesis yesterday, 10L - Follow leaking, expect to stop over next 24 hrs. 5. Intermittent compression stockings. 6. Once PPM replaced may be able to increase diuretics.
[2017-09-24] MEDS: Aspirin EC Low Dose* 81 MG TAB.EC PO SCH (09:02)
[2017-09-24] MEDS: Spironolactone TAB* 25 MG PO SCH ×2 (09:02→20:23)
[2017-09-24] MEDS: Furosemide IV* 10 MG/ML VIAL (40 MG) IV SCH (13:01)
--- NOTE | 2017-09-24 14:19 | PN ---
Subjective Date of Service: 09/24/17 Interval History: f/u volume overload, pacemaker syndrome with syncope No syncope or presyncope Medications Active Medications: Acetaminophen (Tylenol Tab*) 650 mg PO ONCE PRN PRN Reason: HEADACHE Stop: 09/24/17 21:51 Last Admin: 09/24/17 09:09 Dose: 650 mg Aspirin (Aspirin Ec Low Dose*) 81 mg PO QAM [facility] Last Admin: 09/24/17 09:02 Dose: 81 mg Furosemide (Lasix Iv*) 40 mg IV DAILY [facility] Last Admin: 09/24/17 13:01 Dose: 40 mg Heparin Sodium (Porcine) (Heparin Vial(*)) 5,000 units SUBCUT Q8HR [facility] Last Admin: 09/24/17 05:21 Dose: 5,000 units Spironolactone (Aldactone Tab*) 25 mg PO BID [facility] Last Admin: 09/24/17 09:02 Dose: 25 mg Objective Vital Signs: Temp Pulse Resp BP Pulse Ox 97.3 F 64 18 101/53 100 09/24/17 11:15 09/24/17 11:15 09/24/17 11:15 09/24/17 11:15 09/24/17 11:15 Oxygen Devices in Use Now: None Appearance: nad, pleasant Ears/Nose/Mouth/Throat: Clear Oropharnyx, Mucous Membranes Moist Neck: Trachea Midline, - - uncertain jvp Respiratory: Symmetrical Chest Expansion and Respiratory Effort, Clear to Auscultation Cardiovascular: RRR, - - no significant murmur, pacemaker site intact, no significant edema Abdominal: - - abdomen distended, soft, not tense Extremities: No Clubbing, Cyanosis Skin: No Rash or Ulcers Neurological: Alert and Oriented x 3 Laboratory Results: 09/24/17 06:14 09/24/17 06:14 09/22/17 09/22/17 11:45 17:33 Troponin I 0.00 0.00 Diagnostic Imaging: STUDIES: Pacemaker interrogation from 09/15/2017 (remote download) confirms he has a Medtronic Adapta ADDRL1, serial #[id number]. He is programmed in DDD mode with a lower rate of 50 bpm, upper tracking rate of 130 bpm and had reached replacement. Carelink device evaluation today: Mode VVI with LRL 65 bpm, SUPERVISOR POLICY CHANGE CLERKS/VITO, 99.9% FORMULA TECHNICIAN, no ventricular arrhythmias Echo done at [facility] on 02/23/2017 showed moderate left ventricular hypertrophy with an ejection fraction of 45-50% and LV desynchrony, atrial septal aneurysm, mild mitral insufficiency, mild tricuspid insufficiency , and moderate pleural effusion. Labs from 09/01/2017 shows sodium 133, potassium 4.9, chloride 101, bicarb 26, glucose 115, BUN 43, creatinine 2.09, AST 27. Assessment/Plan In summary, Bernardo Ashford is a 77 year man with a past medical history of liver and kidney failure with recurrent ascites admitted with symptomatic volume overload and pacemaker syndrome with syncope secondary to automatic switching to asynchronous VVI mode as battery approaches end of life. Echo also showed RA and LV compression from subdiaphramatic contents now s/p large volume paracentesis and IV diuresis - Continue lasix 40 mg IV QD - Continue home aldactone 50 mg total (25 mg po bid) daily - Continue daily aspirin 81 mg po daily - Check daily BMP - Make NPO after midnight and hold DVT prophylaxis after tonight (ordered) - Plan on generator change Monday09/25/2017. Patient is pacemaker dependent. Thank you for allowing me to participate in the cardiovascular care of this patient. Please do not hesitate to contact me with questions or concerns.
[2017-09-25 06:25] LABS: ABS Basophils 0 10^3/ul (0-0.2); ABS Eosinophils 0 10^3/ul (0-0.6); ABS Lymphocytes 0.6 10^3/ul (1.0-4.8); ABS Monocytes 0.4 10^3/ul (0-0.8); ABS Neutrophils 2.1 10^3/ul (1.5-7.7); ABS Nucleated RBC 0 10^3/ul; Eosinophil % 1.1 % (0-6); Hematocrit 32 % (42-52); Hemoglobin 10.5 g/dl (14.0-18.0); Lymphocyte % 18.7 % (25-47); Mean Corpuscular HGB Conc 33 g/dl (31-36); Mean Corpuscular Hemoglobin 28 pg (27-31); Mean Corpuscular Volume 85 fL (80-94); Mean Platelet Volume 8 um3 (7.4-10.4); Nucleated Red Blood Cells % 0.1; Platelet Count 146 10^3/ul (150-450); Red Blood Count 3.71 10^6/ul (4.0-5.4); Red Cell Distribution Width 18 % (10.5-15); White Blood Count 3.1 10^3/ul (3.5-10.8)
[2017-09-25 06:42] LABS: EGFR Non-African American 30.3 (>60)
[2017-09-25] MEDS ORDERED: ceFAZolin 1 GM VIAL(*) 2 GM in NS 0.9% 100 ML* 100 ML IVPB ONE (07:00)
[2017-09-25] MEDS ORDERED: Lidocaine 1% INJ* 10 MG/ML 30 ML SDV ONE (07:09)
[2017-09-25] MEDS ORDERED: Midazolam* 1 MG/ML 5 ML VIAL (5 MG) ONE (07:26)
[2017-09-25] MEDS ORDERED: fentaNYL* 50 MCG/ML 2 ML VIAL (100 MCG VIAL) ONE (07:26)
[2017-09-25] MEDS ORDERED: Acetaminophen TAB* 325 MG PO PRN (08:26)
[2017-09-25] MEDS ORDERED: Furosemide TAB* 40 MG PO SCH (09:00)
--- NOTE | 2017-09-25 09:06 | PN ---
Progress Note - Progress Note Date of Service: 09/25/17 SOAP: Subjective: [] Had PPM placed today and feels better. No complications. Leaking from paracentesis stopped yesterday afternoon. No fevers. Eating well. Acetaminophen (Tylenol Tab*) 650 mg PO Q4H PRN PRN Reason: PAIN Aspirin (Aspirin Ec Low Dose*) 81 mg PO QAM [facility] Last Admin: 09/24/17 09:02 Dose: 81 mg Cephalexin HCl (Keflex Cap*) 500 mg PO BID [facility] Stop: 09/29/17 17:59 Furosemide (Lasix Iv*) 40 mg IV DAILY [facility] Last Admin: 09/24/17 13:01 Dose: 40 mg Furosemide (Lasix Tab*) 40 mg PO BID [facility] Spironolactone (Aldactone Tab*) 25 mg PO BID [facility] Last Admin: 09/24/17 20:23 Dose: 25 mg Spironolactone (Aldactone Tab*) 50 mg PO QPM [facility] Objective: [] Vital Signs Temp Pulse Resp BP Pulse Ox 97.4 F 75 16 114/62 100 09/25/17 08:42 09/25/17 08:42 09/25/17 08:42 09/25/17 08:42 09/25/17 08:42 HEENT - no oral lesions, moist. CTA Pacemaker placed, bandaged. RRR S1S2 at 64 + ascites but better Ext +2 edema Neuro AAOx3 Assessment: []77 year old with chronic liver disease and ascities as well as paced rhythem who presented with syncope after PPM went into battery saving mode. Today doing well after new pacemaker placed. Plan: []1. Discharge home today 2. Hold diuretics until , continue all other medication 3. Keflex 500 mg bid x 4 days 4. Follow up cardiology 5. RTC for possible paracentesis in two weeks.
[2017-09-25] MEDS: Aspirin EC Low Dose* 81 MG TAB.EC PO SCH (09:15)
[2017-09-25] MEDS: Spironolactone TAB* 25 MG PO SCH (09:22)
[2017-09-25] MEDS: Furosemide IV* 10 MG/ML VIAL (40 MG) IV SCH (09:23)
[2017-09-25 11:26] VITALS: BP 96/51
[2017-09-25] MEDS ORDERED: Spironolactone TAB* 25 MG PO SCH (18:00)
[2017-09-25] MEDS ORDERED: Cephalexin CAP* 500 MG PO SCH (18:00)
--- NOTE | 2017-09-26 01:08 | DS ---
CC: Dr. Olmedo; Dr. Johnston DISCHARGE SUMMARY: DATE OF ADMISSION: 09/22/17 DATE OF DISCHARGE: 09/25/17 DISCHARGE DIAGNOSES: 1. Reduced function of pacemaker. 2. Cryptogenic cirrhosis with refractory ascites. HOSPITAL COURSE: He came into our office on Monday for a paracentesis. He had a syncopal episode. He recovered after several seconds with regular mental status. Seen by Dr. Mena of Cardiology and f ound to have a mode transition of his pacemaker secondary to low battery life causing dizziness and h ypotension. He was followed over the weekend and had a pacemaker replacement done early this morning . He feels better and is ready to go home. He had a blood pressure running in the 80 to 100 over the weekend, 114 systolic/70 after his pacemaker placement. He tolerated the procedure without difficul ty. We went forward and tapped his ascites on Monday and drained 10 L, he then had a fluid leak for anca und 24 hours with additional drainage. Abdomen feels better today. DISCHARGE MEDICATIONS: 1. Lasix 40 mg p.o. daily, hold for 2 days and restart. 2. Spironolactone 25 mg p.o. b.i.d., hold for 2 days and then restart. 3. Keflex 500 b.i.d. for 4 days. FOLLOWUP: 1. Follow up with Dr. Olmedo in the next 4 to 7 days for wound check. 2. Return to our clinic on 10/12/17 for additional paracentesis. He will call our office and/or Dr. Johnston with any difficulties after discharge. [id number]/[facility] #: [id number]
--- NOTE | 2017-09-27 22:48 | OP ---
AMENDED REPORT TO CORRECT ACCOUNT AND CC SET UP - E-SIGNED BEFORE ADJUSTMENTS CC: Dr. Devin [place], [place] * DATE OF OPERATION: 09/25/17 - ROOM #452 DATE OF : 44 SURGEON: Angelic Olmedo MD ANESTHESIA: MAC. PRE-OP DIAGNOSIS: Complete heart block with current pacer replacement. POST-OP DIAGNOSIS: Complete heart block with current pacer replacement. OPERATIVE PROCEDURE: Pacemaker generator change. COMPLICATIONS: None. ESTIMATED BLOOD LOSS: Less than 1 cc. DESCRIPTION OF PROCEDURE: The indications, risks, and benefits of the procedure had been discussed with the patient's the week prior and with the patient on the day of the procedure and he was amenable to proceeding. The existing pacer in the left subclavian fossa was prepped and draped in the usual sterile fashion and a time-out procedure was called. The patient received a total of 3 mg of Versed and 25 mcg of fentanyl throughout the procedure and 250 cc IV bolus throughout the procedure. The patient received approximately 15 cc of 1% lidocaine for local anesthesia following which using a 10-blade knife, a 3-cm incision was made over the existing device. Using Bovie cautery and blunt dissection, the incision was extended to the device. Using Metzenbaum and Addson's a small darren was made in the fascial covering and this was carefully extended medially and laterally taking care to avoid any leads. The existing device was then explanted. Both leads were removed from the device, there was very a slow underlying junctional escape rhythm and he remained in complete heart block. Both leads were checked and found to be in good condition. The pocket was then copiously irrigated with normal saline. The leads were attached to the new generator and the generator was placed in the pocket. Thresholds were rechecked and the incision was closed using 3 layers of resorbable suture, one layer interrupted, 2-0 resorbable suture followed by a running 2-0 resorbable suture followed 3-0 resorbable suture followed by jun and an external dressing. FINDINGS: The explanted device is a Medtronic model ADDRL1, serial # [id number]. The newly implanted device is an MRI compatible device A2DR01, serial #[id number]. The existing atrial lead was a Medtronic model 930474, serial number [id number]. The existing ventricular lead was [employer] Model 443301, serial # [id number]. The atrial lead measured P wave of 4.2 millivolts with an atrial lead impedance of 392 ohms and atrial pacing threshold of 0.4 volts at 0.5 milliseconds. The junctional escape rhythm had R waves measured at 5.0 millivolts with ventricular lead impedance of 427 ohms and a ventricular pacing threshold of 0.6 volts at 0.5 milliseconds. The patient's device was programmed at DDD mode with a lower rate of 50 beats a minute and upper tracking rate of 120 beats a minute. Mode switching at 171 beats per minute with the paced AV and sensed AV of 200 milliseconds (previous programming). The patient had a transient drop in blood pressure to 88 systolic which responded to normal saline. The patient was able to converse throughout the procedure. The patient was hemodynamically stable at the end of the procedure and transferred to the floor. [id number]/[facility] #: [id number] [place]
== END 2017-09-25 12:43 | disposition home or self-care (01) | DRG 259 ==
LOC: MEDTELE 10:37 → OBSVTOIN 10:37 → INTOOBSV 10:37 → MEDTELE 14:53 → OBSVTOIN 09-23 14:53
PROVIDERS: ADMIT Internal Medicine Hematology & Oncology; ATTEND Internal Medicine Hematology & Oncology
PROC: 0JPT0PZ Removal of Cardiac Rhythm Related Device from Trunk Subcutaneous Tissue and Fascia, Open Approach (ICD-10-PCS; principal; 2017-09-23)
PROC: 0JH606Z Insertion of Pacemaker, Dual Chamber into Chest Subcutaneous Tissue and Fascia, Open Approach (ICD-10-PCS; 2017-09-23)
DX: T82.191A Other mechanical complication of cardiac pulse generator (battery), initial encounter (principal); I44.2 Atrioventricular block, complete; E85.9 Amyloidosis, unspecified; K76.6 Portal hypertension; R18.8 Other ascites; K21.9 Gastro-esophageal reflux disease without esophagitis; Y71.1 Therapeutic (nonsurgical) and rehabilitative cardiovascular devices associated with adverse incidents; K74.69 Other cirrhosis of liver; I44.7 Left bundle-branch block, unspecified; I25.10 Atherosclerotic heart disease of native coronary artery without angina pectoris; E78.5 Hyperlipidemia, unspecified; M19.90 Unspecified osteoarthritis, unspecified site; N40.0 Benign prostatic hyperplasia without lower urinary tract symptoms; R53.82 Chronic fatigue, unspecified; E66.9 Obesity, unspecified; I10 Essential (primary) hypertension; Z85.51 Personal history of malignant neoplasm of bladder; Z98.49 Cataract extraction status, unspecified eye; Z80.52 Family history of malignant neoplasm of bladder; Y92.9 Unspecified place or not applicable; Z80.0 Family history of malignant neoplasm of digestive organs; Z95.5 Presence of coronary angioplasty implant and graft; Z90.49 Acquired absence of other specified parts of digestive tract; Z87.891 Personal history of nicotine dependence; Z72.89 Other problems related to lifestyle
CPT/HCPCS: 33228; 36415; 49082; 80048; 80053; 83735; 84484; 85025; 88300; 93005; 93306; 99156; 99157; 99232; 99239; A9270-GY; C1785; J0690; J1644; J1940; J2250; J3010; P9047

== ENCOUNTER 2017-09-26 18:44 | Inpatient (IN) | payer MEDICARE ==
[2017-09-26 20:29] LABS: ABS Basophils 0 10^3/ul (0-0.2); ABS Eosinophils 0 10^3/ul (0-0.6); ABS Lymphocytes 0.8 10^3/ul (1.0-4.8); ABS Monocytes 0.5 10^3/ul (0-0.8); ABS Neutrophils 4.2 10^3/ul (1.5-7.7); ABS Nucleated RBC 0 10^3/ul; Eosinophil % 0.7 % (0-6); Hematocrit 38 % (42-52); Hemoglobin 12.1 g/dl (14.0-18.0); Lymphocyte % 14.2 % (25-47); Mean Corpuscular HGB Conc 32 g/dl (31-36); Mean Corpuscular Hemoglobin 28 pg (27-31); Mean Corpuscular Volume 85 fL (80-94); Mean Platelet Volume 8 um3 (7.4-10.4); Nucleated Red Blood Cells % 0; Platelet Count 244 10^3/ul (150-450); Red Cell Distribution Width 18 % (10.5-15); White Blood Count 5.5 10^3/ul (3.5-10.8)
[2017-09-26 20:39] LABS: EGFR Non-African American 36.7 (>60)
[2017-09-26] MEDS ORDERED: Aspirin Low Dose CHEW TAB* 81 MG PO ONE (20:41)
--- NOTE | 2017-09-26 21:12 | RAD ---
Indication: LEFT side chest pain radiating to the bilateral arms. History of monoclonal gammopathy. Comparison: November 28, 2016 PET/CT. Technique: Upright AP 2047 hours Report: No focal pulmonary lesion, compelling alveolar consolidation, pleural effusion, pneumothorax. LEFT chest wall pacemaker with overlying cutaneous jun with one lead extending to the RIGHT atrium and one lead extends the RIGHT ventricle. Negative for cardiomegaly. Unremarkable central pulmonary vasculature and mediastinal contours. IMPRESSION: No evidence for acute intrathoracic disease.
--- NOTE | 2017-09-26 21:43 | ED ---
Aiden Lal Angela, scribed for Ulises Schmidt MD on 09/26/17 at 2038 . HPI Chest Pain - HPI Summary HPI Summary: This pt is a 77 y/o male presenting to [facility] c/o left sided chest pain and bilateral arm pain since yesterday. Pt had a procedure done yesterday to change the batteries of his pacemaker. He had blood work drawn at 16:00 today. His lease out worker, Dr. Olmedo, called him today at 16:30 for abnormal lab results, elevated troponin. He is currently on antibiotics. PMHx: cardiac stent, approx 20 years ago. - History of Current Complaint Chief Complaint: EDChestPainROMI Time Seen by Provider: 09/26/17 20:16 Hx Obtained From: Patient Onset/Duration: Started Days Ago - 1, Still Present Timing: Lasting Days - 1 Current Severity: Mild Pain Intensity: 3 Pain Scale Used: 0-10 Numeric Chest Pain Location: Left Anterior Chest Pain Radiates: Yes Chest Pain Radiates To:: Arm - bilateral arms Aggravating Factor(s): Nothing Alleviating Factor(s): Nothing Associated Signs and Symptoms: Positive: Chest Pain. Negative: Nausea, Palpitations, Vomiting - Additional Pertinent History Primary Care Physician: [id number] - Allergy/Home Medications Allergies/Adverse Reactions: Allergies Allergy/AdvReac Type Severity Reaction Status Date / Time horse dander Allergy Swelling Verified 09/22/17 11:32 Horse/Equine Containing Allergy Hives Verified 09/22/17 11:32 Products latex Allergy See Comment Verified 09/22/17 11:20 midodrine Allergy Unknown Verified 09/22/17 11:20 Reaction Details HORSE SERUM Allergy Severe Swelling, Uncoded 03/30/17 11:25 hives PMH/Surg Hx/FS Hx/Imm Hx Cardiovascular History: Reports: Hx Angina, Hx Coronary Artery Disease, Hx Hypertension, Hx Pacemaker/ICD - pacemaker Respiratory History: Reports: Hx Sleep Apnea - current CPAP user GI History: Reports: Hx Cirrhosis, Hx Gastroesophageal Reflux Disease, Hx Irritable Bowel History: Reports: Other Problems/Disorders - weak bladder s/p bladder cancer Musculoskeletal History: Denies: Hx Rheumatoid Arthritis Sensory History: Reports: Hx Contacts or Glasses Denies: Hx Hearing Aid Opthamlomology History: Reports: Hx Contacts or Glasses Neurological History: Denies: Hx Headaches, Hx Seizures, Hx Transient Ischemic Attacks (TIA) - Cancer History Cancer Type, Location and Year: bladder cancer - Surgical History Surgery Procedure, Year, and Place: cataract surgery with lens implants bilat eyes. hammer toe repair bilat feet. appendectomy. cholecystectomy Hx Anesthesia Reactions: No Infectious Disease History: No Infectious Disease History: Denies: Traveled Outside the [place] in Last 30 Days - Family History Known Family History: Positive: Cardiac Disease Negative: Hypertension, Diabetes - Social History Alcohol Use: Rare Alcohol Amount: none since August when issues started Substance Use Type: Reports: None Hx Tobacco Use: No Smoking Status (MU): Former Smoker Have You Smoked in the Last Year: No Review of Systems Negative: Fever, Chills Positive: Chest Pain Negative: Cough Negative: Vomiting, Nausea All Other Systems Reviewed And Are Negative: Yes Physical Exam - Summary Physical Exam Summary: VITAL SIGNS: Reviewed. GENERAL: Patient is a well-developed and nourished male who is lying comfortable in the stretcher. Patient is not in any acute respiratory distress. HEAD AND FACE: No signs of trauma. No ecchymosis, hematomas or skull depressions. No sinus tenderness. EYES: PERRLA, EOMI x 2, No injected conjunctiva, no nystagmus. EARS: Hearing grossly intact. Ear canals and tympanic membranes are within normal limits. MOUTH: Oropharynx within normal limits. NECK: Supple, trachea is midline, no adenopathy, no JVD, no carotid bruit, no c- spine tenderness, neck with full ROM. CHEST: Symmetric, no tenderness at palpation. Dressing over left chest over the pacemaker. No inflammatory signs over the pacemaker. LUNGS: Clear to auscultation bilaterally. No wheezing or crackles. CVS: Mild tachycardic, S1 and S2 present, no murmurs or gallops appreciated. ABDOMEN: Soft, non-tender. No signs of distention. No rebound no guarding, and no masses palpated. Bowel sounds are normal. EXTREMITIES: FROM in all major joints, no edema, no cyanosis or clubbing. NEURO: Alert and oriented x 3. No acute neurological deficits. Speech is normal and follows commands. SKIN: Dry and warm Triage Information Reviewed: Yes Vital Signs On Initial Exam: Initial Vitals Temp Pulse Resp BP Pulse Ox 97.8 F 117 20 122/65 99 09/26/17 18:46 02/27/18 18:46 09/26/17 18:46 09/26/17 18:46 09/26/17 18:46 Vital Signs Reviewed: Yes Diagnostics - Vital Signs Vital Signs Temp Pulse Resp BP Pulse Ox 09/26/17 20:10 97 18 130/69 99 09/26/17 20:02 18 09/26/17 18:46 97.8 F 117 20 122/65 99 - Laboratory Lab Results: Lab Results 09/26/17 09/26/17 09/26/17 Range/Units 20:00 20:00 20:00 WBC 5.5 (3.5-10.8) 10^3/ul RBC 4.40 (4.0-5.4) 10^6/ul Hgb 12.1 L (14.0-18.0) g/dl Hct 38 L (42-52) % MCV 85 (80-94) fL MCH 28 (27-31) pg MCHC 32 (31-36) g/dl RDW 18 H (10.5-15) % Plt Count 244 (150-450) 10^3/ul MPV 8 (7.4-10.4) um3 Neut % (Auto) 75.0 (38-83) % Lymph % (Auto) 14.2 L (25-47) % [place] % (Auto) 9.5 H (0-7) % Eos % (Auto) 0.7 (0-6) % Baso % (Auto) 0.6 (0-2) % Absolute Neuts (auto) 4.2 (1.5-7.7) 10^3/ul Absolute Lymphs (auto) 0.8 L (1.0-4.8) 10^3/ul Absolute Monos (auto) 0.5 (0-0.8) 10^3/ul Absolute Eos (auto) 0 (0-0.6) 10^3/ul Absolute Basos (auto) 0 (0-0.2) 10^3/ul Absolute Nucleated RBC 0 10^3/ul Nucleated RBC % 0 Sodium 131 L (133-145) mmol/L Potassium 5.0 (3.5-5.0) mmol/L Chloride 102 (101-111) mmol/L Carbon Dioxide 24 (22-32) mmol/L Anion Gap 5 (2-11) mmol/L BUN 37 H (6-24) mg/dL Creatinine 1.81 H (0.67-1.17) mg/dL Est GFR ( Amer) 47.2 (>60) Est GFR (Non-Af Amer) 36.7 (>60) BUN/Creatinine Ratio 20.4 H (8-20) Glucose 103 H (70-100) mg/dL Lactic Acid 1.5 (0.5-2.0) mmol/L Calcium 8.8 (8.6-10.3) mg/dL Total Bilirubin 0.30 (0.2-1.0) mg/dL AST 26 (13-39) U/L ALT 17 (7-52) U/L Alkaline Phosphatase 132 H (34-104) U/L Troponin I 0.07 H* (<0.04) ng/mL Total Protein 6.9 (6.4-8.9) g/dL Albumin 3.2 (3.2-5.2) g/dL Globulin 3.7 (2-4) g/dL Albumin/Globulin Ratio 0.9 L (1-3) Result Diagrams: 09/26/17 20:00 09/26/17 20:00 Lab Statement: Any lab studies that have been ordered have been reviewed, and results considered in the medical decision making process. - Radiology Chest XR Xray Interpretation: No Acute Changes - IMPRESSION: No evidence for acute intrathoracic disease. Dr. Schmidt has reviewed this radiology report. Radiology Interpretation Completed By: Radiologist - EKG 18:52 Cardiac Rate: NL EKG Interpretation: pace rhythm at 99 bpm Chest Pain Course/Dx - Course Course Of Treatment: Pt is a 77 y/o male, with recent change of pacemaker yesterday, who presents with left sided chest pain and bilateral arm pain since yesterday. In the ED course, the pt was given aspirin. Chest XR is negative. Labs show troponin of 0.07. I discussed pt care with Dr. Bojorquez, hospitalist, who has agreed to admit the pt. - Diagnoses Provider Diagnoses: Chest pain - Provider Notifications Discussed Care Of Patient With: Miki Bojorquez Time Discussed With Above Provider: 21:32 Instructed by Provider To: Other - I discussed pt care with Dr. Bojorquez, hospitalist, who has agreed to admit the pt. Discharge - Discharge Plan Condition: Fair Disposition: ADMITTED TO [facility] Referrals: Franklyn Johnston MD [Primary Care Provider] - The documentation as recorded by the Aiden carvajal Angela accurately reflects the service I personally performed and the decisions made by me, Ulises Schmidt MD.
[2017-09-26] MEDS ORDERED: Heparin DRIP 25,000 UNITS(*) 25,000 UNITS/500 ML BAG IVPB SCH (22:15)
[2017-09-26] MEDS ORDERED: Acetaminophen TAB* 325 MG PO PRN (22:32)
[2017-09-27] MEDS ORDERED: Morphine INJ* 2 MG/ML 1 ML CARPUJECT IV PRN (01:15)
[2017-09-27] MEDS: Heparin VIAL(*) 5000 UNITS/ML VIAL (FIVE THOUSAND) IV SCH ×2 (01:24→22:42)
--- NOTE | 2017-09-27 02:38 | HP ---
CC: Dr. Johnston.* HOSPITAL MEDICINE HISTORY AND PHYSICAL: DATE OF ADMISSION: 09/26/17 PRIMARY CARE PHYSICIAN: Dr. Johnston. ATTENDING PHYSICIAN: Dr. Miki Bojorquez * (dictation provided by Margarita Echavarria NP) CHIEF COMPLAINT: Bilateral arm discomfort and chest pain. HISTORY OF PRESENT ILLNESS: Mr. Ashford is a 77-year-old male with a past medical history of recent discharge from our hospital yesterday after having a battery placed in his pacemaker for symptoms of syncope. 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 Guillen. The patient reports after returning home yesterday, he began to have pain in both of his arms, this felt like a heaviness bilaterally. He felt that he was having some chest discomfort in the middle of his chest when he would exert himself at all. He felt this continued through the night and this morning , and therefore, he called Dr. Olmedo's office. She chelsey labs and noted that his troponin was elevated to 0.08 and therefore had him come to the emergency room immediately. In the emergency room, Mr. Ashford states that currently he does not have any discomfort at rest in the bed. His second troponin is 0.07. His EKG shows a paced rhythm. His blood pressure is running systolically 90s to 120s. PAST MEDICAL HISTORY: 1. Coronary artery disease, stent placement 20 years ago. 2. Cryptogenic cirrhosis with frequent paracentesis, managed by Dr. Guillen's office with liver failure. 3. Supraventricular tachycardia with pacemaker placed 10 years ago. 4. Coronary artery disease, 4 stents placed. 5. Hyperlipidemia. 6. Arthritis. 7. BPH. 8. Superficial bladder cancer in the past. 9. Chronic kidney disease. MEDICATIONS: 1. Furosemide 40 mg p.o. b.i.d. 2. Cephalexin 500 mg p.o. b.i.d. 3. Aspirin 81 mg p.o. q.a.m. 4. Spironolactone 50 mg p.o. q.p.m. ALLERGIES: HORSE DANDER, HORSE CONTAINING PRODUCTS, LATEX, MIDODRINE, and HORSE SERUM. FAMILY HISTORY: The patient reports his father of bladder cancer, brother had colon cancer. Two of his siblings are healthy. Has a family history of colon polyps. SOCIAL HISTORY: No reported alcohol, tobacco, or drug use. The patient lives with his who is the healthcare proxy. REVIEW OF SYSTEMS: A 14-point review of systems was completed with Mr. Ashford and all those not mentioned above are negative. PHYSICAL EXAMINATION GENERAL: Mr. Ashford was sitting in the bed, he in no acute distress. His legs at the beside. VITAL SIGNS: Temperature 97.8, pulse rate 90, respiratory rate 17, O2 saturation 96% on room air, and blood pressure 107/57. LUNGS: Clear to auscultation bilaterally with no accessory muscle use and good aeration. HEART: S1 and S2. No murmur, rub, or gallop and regular. ABDOMEN: Soft and nontender with bowel sounds positive x4. EXTREMITIES: No cyanosis or edema. SKIN: Intact except for the incision site at the pacemaker pocket which is well approximated. No drainage and no erythema. NEUROLOGIC: He is alert, he is oriented x3. Moves all extremities equally. There is no facial asymmetry or focal weakness. Extraocular movements are intact. DIAGNOSTIC STUDIES/LAB DATA: WBC 5.5, hemoglobin 12.1, hematocrit 38, and platelet count 244. Sodium 131, potassium 5.0, chloride 102, serum bicarbonate 24, BUN 37, creatinine 1.81, glucose 103. Lactic acid 1.5. Troponin 0.07 on arrival, repeat was 0.08. EKG shows a V-paced rhythm with no change from previous and chest x-rays shows "no evidence for acute intrathoracic disease". ASSESSMENT: Mr. Ashford is a 77-year-old male with a past medical history of cryptogenic cirrhosis and recent battery replacement for his pacemaker for his symptoms of syncope who presents to the hospital today after being discharged from the hospital yesterday for bilateral arm discomfort and chest pain with exertion with an elevated troponin. Our plans are for observation in the hospital for the followin. Chest and arm discomfort with elevated troponin: Of course, our primary concern is that this is cardiac in origin. His troponin is essentially unchanged over the past 3 checks. He is comfortable at the moment. I have discussed the case at length with Dr. Mroeno. We also have concern for a possible pulmonary embolism, though this seems less likely given the overall clinical picture, but this or coronary artery disease could tie together the syncopal episodes (that led to his last admission and had been attributed to faulty pacemaker function) and his current presentation. Our plan, therefore, is to treat with a heparin drip pending further evaluation by Dr. Olmedo tomorrow. D-dimer has been added on. It think it will helpful if the D-dimer is negative. If it is positive, it will not provide much more information than we already know. Patient cannot have a CTA chest due to chronic kidney disease. At this time, I do not plan to order a V/Q scan, but will order Doppler of bilateral lower extremities 2. History of cryptogenic cirrhosis. Continue Lasix and spironolactone. 3. History of pacemaker replacement. Continue the Keflex. 4. Coronary artery disease. Continue aspirin and heparin drip. 5. Code status is full code. TIME SEEN: Approximately 60 minutes were spent in admission of this patient, more than half the time spent with the patient at the bedside reviewing the events leading up to this hospitalization, performing the physical examination, and reviewing my plan of care. MARGARITA ECHAVARRIA NP [id number]/CPS #: [id number] GALO
[2017-09-27] MEDS ORDERED: Furosemide TAB* 40 MG PO SCH (08:00)
[2017-09-27 08:30] LABS: ABS Basophils 0 10^3/ul (0-0.2); ABS Eosinophils 0.1 10^3/ul (0-0.6); ABS Lymphocytes 0.6 10^3/ul (1.0-4.8); ABS Monocytes 0.3 10^3/ul (0-0.8); ABS Neutrophils 1.7 10^3/ul (1.5-7.7); ABS Nucleated RBC 0 10^3/ul; Eosinophil % 3.2 % (0-6); Hematocrit 33 % (42-52); Hemoglobin 10.7 g/dl (14.0-18.0); Lymphocyte % 22.7 % (25-47); Mean Corpuscular HGB Conc 33 g/dl (31-36); Mean Corpuscular Hemoglobin 28 pg (27-31); Mean Corpuscular Volume 85 fL (80-94); Mean Platelet Volume 9 um3 (7.4-10.4); Nucleated Red Blood Cells % 0.1; Platelet Count 188 10^3/ul (150-450); Red Blood Count 3.84 10^6/ul (4.0-5.4); Red Cell Distribution Width 18 % (10.5-15); White Blood Count 2.8 10^3/ul (3.5-10.8)
[2017-09-27] MEDS ORDERED: Metoprolol Tartrate TAB* 25 MG PO SCH (08:30)
--- NOTE | 2017-09-27 08:38 | RAD ---
HISTORY: Chest pain, elevated troponins COMPARISONS: January 18, 2012 TECHNIQUE: Multiple transverse and longitudinal ultrasound images were obtained of the bilateral lower extremities from the level of the common femoral vein inferiorly through to the infrapopliteal veins using grayscale, color Doppler, and spectral Doppler imaging with and without compression and with augmentation. FINDINGS: VEINS: The venous system of the bilateral lower extremities is compressible throughout its course, with normal flow on color Doppler imaging and normal response to augmentation on spectral Doppler imaging. SOFT TISSUES: Unremarkable. OTHER FINDINGS: None. IMPRESSION: NO RIGHT LOWER EXTREMITY DEEP VEIN THROMBOSIS. NO LEFT LOWER EXTREMITY DEEP VEIN THROMBOSIS
--- NOTE | 2017-09-27 08:38 | CONSULT ---
Subjective Date of Service: 09/27/17 - CC: bilateral arm pain. Interval History: The patient noted arm heaviness Monday post pacemaker implantation. Yesterday recurred with light exertion. Troponins mildly elevated and patient admitted. Last night awoke from sleep (usually requires CPAP and had none last evening). He awoke with severe arm pain and not feeling well, estimated CP lasted 30-60 minutes with heparin gtt. Currently pain free. The patient notes he has had similar symptoms when they interogate his device, they are transient. Family History: Findings - Father bladder CA, brother colon CA. Mother is alive. 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 Past Medical History: Findings - CAD, stent 20 years ago. 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 Medications Active Medications: Acetaminophen (Tylenol Tab*) 650 mg PO Q6H PRN PRN Reason: PAIN Last Admin: 09/27/17 00:59 Dose: 650 mg Aspirin (Aspirin Ec Low Dose*) 81 mg PO QAM [facility] Cephalexin HCl (Keflex Cap*) 500 mg PO BID [facility] Furosemide (Lasix Tab*) 40 mg PO 0800,1600 [facility] Heparin Sodium (Porcine) (Heparin Vial(*)) 0 units IV .PER PROTOCOL [facility] PRN Reason: Protocol Last Admin: 09/27/17 01:24 Dose: 4,000 units Heparin Sodium/Dextrose (Heparin Drip 25,000 Units(*)) 25,000 units in 500 mls @ 0 mls/hr IVPB PER RATE IVANA; Per Protocol PRN Reason: Protocol Last Admin: 09/27/17 01:25 Dose: 20 mls/hr Metoprolol Tartrate (Lopressor Tab*) 25 mg PO BID [facility] Morphine Sulfate (Morphine Inj (Syringe)*) 2 mg IV Q4H PRN PRN Reason: PAIN - MILD Spironolactone (Aldactone Tab*) 50 mg PO QPM [facility] Home Medications: Aspirin EC Low Dose* [Ecotrin EC Low Dose 81 MG*] 81 mg PO QAM 07/19/16 [ History Confirmed 09/26/17] Furosemide TAB* [Lasix TAB*] 40 mg PO BID 10/18/16 [History Confirmed 09/26/17] Spironolactone TAB* [Aldactone TAB 25 MG*] 50 mg PO QPM 11/28/16 [History Confirmed 09/26/17] Cephalexin CAP* [Keflex 500 CAP*] 500 mg PO BID 4 Days cap 09/25/17 [Rx Confirmed 09/26/17] Review of Systems - Measurements Intake and Output: Intake and Output Last 24 Hours 09/25/17 09/26/17 09/27/17 09/28/17 04:59 04:59 04:59 04:59 Intake Total 0 Balance 0 Weight 206 lb 1.6 oz Intake: Oral 0 - Review of Systems Constitutional Symptoms: Positive: Weakness Dermatology: Positive: Normal HEENT: Positive: Normal Eyes: Positive: Normal Thyroid: Positive: Normal Pulmonary: Positive: Normal Cardiology: Positive: Chest Pain Gastroenterology: Positive: Other Genital - Urinary: Positive: Normal Musculoskeletal: Positive: Joint Stiffness - hx acites recurrent, intermitent for cirrhosis Endocrinology: Positive: Normal Hematologic/Lymphatic: Positive: Anemia Neurology: Positive: Normal Psychiatry: Positive: Normal Review of Systems Statement: All other review of systems negative, unless stated above. Objective Vital Signs: Temp Pulse Resp BP Pulse Ox 98.0 F 92 16 90/48 99 09/27/17 04:11 09/27/17 04:11 09/27/17 04:11 09/27/17 04:11 09/27/17 04:11 Oxygen Devices in Use Now: None Appearance: chronically ill in appearence, lying at 45 degrees appears comfortable. Eyes: No Scleral Icterus, PERRLA Ears/Nose/Mouth/Throat: Mucous Membranes Moist Neck: Trachea Midline, No Thyroid Enlargement, Masses Respiratory: Symmetrical Chest Expansion and Respiratory Effort, Clear to Auscultation Cardiovascular: RRR - fast. Abdominal: - - large, soft, non tender, active bowel sounds. Lymphatic: No Cervical Adenopathy Extremities: No Edema Skin: No Rash or Ulcers Neurological: Alert and Oriented x 3, NL Gait Lines/Tubes/Other Access: Clean, Dry and Intact Peripheral IV Nutrition: Taking PO's Laboratory Results: 09/27/17 08:09 APTT 30.2 seconds (26.0-36.3) 09/27/17 00:51 Total Bilirubin 0.30 mg/dL (0.2-1.0) 09/26/17 20:00 AST 26 U/L (13-39) 09/26/17 20:00 ALT 17 U/L (7-52) 09/26/17 20:00 Alkaline Phosphatase 132 U/L (34-104) H 09/26/17 20:00 Total Protein 6.9 g/dL (6.4-8.9) 09/26/17 20:00 Albumin 3.2 g/dL (3.2-5.2) 09/26/17 20:00 Globulin 3.7 g/dL (2-4) 09/26/17 20:00 Albumin/Globulin Ratio 0.9 (1-3) L 09/26/17 20:00 09/27/17 00:55 Troponin I 0.08 H* Abnormal Lab Results 09/26/17 09/26/17 09/26/17 20:00 20:00 20:00 WBC 5.5 RBC 4.40 Hgb 12.1 L Hct 38 L MCV 85 MCH 28 MCHC 32 RDW 18 H Plt Count 244 MPV 8 Neut % (Auto) 75.0 Lymph % (Auto) 14.2 L [place] % (Auto) 9.5 H Eos % (Auto) 0.7 Baso % (Auto) 0.6 Absolute Neuts (auto) 4.2 Absolute Lymphs (auto) 0.8 L Absolute Monos (auto) 0.5 Absolute Eos (auto) 0 Absolute Basos (auto) 0 Absolute Nucleated RBC 0 Nucleated RBC % 0 APTT D-Dimer, Quantitative Sodium 131 L Potassium 5.0 Chloride 102 Carbon Dioxide 24 Anion Gap 5 BUN 37 H Creatinine 1.81 H Est GFR ( Amer) 47.2 Est GFR (Non-Af Amer) 36.7 BUN/Creatinine Ratio 20.4 H Glucose 103 H Lactic Acid 1.5 Calcium 8.8 Total Bilirubin 0.30 AST 26 ALT 17 Alkaline Phosphatase 132 H Total Creatine Kinase 22 CK-MB (CK-2) 2.5 Troponin I 0.07 H* Total Protein 6.9 Albumin 3.2 Globulin 3.7 Albumin/Globulin Ratio 0.9 L 09/26/17 09/26/17 09/27/17 20:00 21:40 00:51 WBC RBC Hgb Hct MCV MCH MCHC RDW Plt Count MPV Neut % (Auto) Lymph % (Auto) [place] % (Auto) Eos % (Auto) Baso % (Auto) Absolute Neuts (auto) Absolute Lymphs (auto) Absolute Monos (auto) Absolute Eos (auto) Absolute Basos (auto) Absolute Nucleated RBC Nucleated RBC % APTT 30.2 D-Dimer, Quantitative 406 H Sodium Potassium Chloride Carbon Dioxide Anion Gap BUN Creatinine Est GFR ( Amer) Est GFR (Non-Af Amer) BUN/Creatinine Ratio Glucose Lactic Acid Calcium Total Bilirubin AST ALT Alkaline Phosphatase Total Creatine Kinase CK-MB (CK-2) Troponin I 0.08 H* Total Protein Albumin Globulin Albumin/Globulin Ratio 09/27/17 09/27/17 09/27/17 00:55 08:09 08:09 WBC 2.8 L RBC 3.84 L Hgb 10.7 L Hct 33 L MCV 85 MCH 28 MCHC 33 RDW 18 H Plt Count 188 MPV 9 Neut % (Auto) 61.3 Lymph % (Auto) 22.7 L [place] % (Auto) 11.5 H Eos % (Auto) 3.2 Baso % (Auto) 1.3 Absolute Neuts (auto) 1.7 Absolute Lymphs (auto) 0.6 L Absolute Monos (auto) 0.3 Absolute Eos (auto) 0.1 Absolute Basos (auto) 0 Absolute Nucleated RBC 0 Nucleated RBC % 0.1 APTT 86.6 H D-Dimer, Quantitative Sodium Potassium Chloride Carbon Dioxide Anion Gap BUN Creatinine Est GFR ( Amer) Est GFR (Non-Af Amer) BUN/Creatinine Ratio Glucose Lactic Acid Calcium Total Bilirubin AST ALT Alkaline Phosphatase Total Creatine Kinase 18 CK-MB (CK-2) 1.9 Troponin I 0.08 H* Total Protein Albumin Globulin Albumin/Globulin Ratio EKG Data: NSR, V pacing/tracking, subtle ST depression c/w baseline inf. lateral leads on paced QRS. Assessment/Plan 77 yo male with known CAD, POD # 2 pacemaker generator change with anginal symptoms and mild bump in troponins. CAD: I recommend cath, clinical documentation specialist will evaluate. Add metoprolol with goal of SR in 60's Agree with heparin gtt. Agree ASA. 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 Hypotension: Pt's BP has been low since peritoneal tap and aggressive dieresis over the weekend. HOLD diuretics for now, pre cath. Pacemaker: Good function, continue periop antibiotics. Cirrhosis/RI via hospitalists, but both appear at baseline currently.
[2017-09-27] MEDS: Aspirin EC Low Dose* 81 MG TAB.EC PO SCH (08:51)
[2017-09-27] MEDS: Cephalexin CAP* 500 MG PO SCH ×2 (08:51→21:44)
[2017-09-27 08:54] LABS: EGFR Non-African American 37.7 (>60)
[2017-09-27] MEDS ORDERED: Acetylcysteine ORAL SOL* 200 MG/ML VIAL PO SCH (10:00)
[2017-09-27] MEDS ORDERED: Nitroglycerin TAB 0.4 MG* 0.4 MG TAB SL ONE (10:10)
[2017-09-27] MEDS ORDERED: Nitroglycerin TAB 0.4 MG* 0.4 MG TAB ONE (10:10)
--- NOTE | 2017-09-27 10:19 | PN ---
Progress Note - Progress Note Date of Service: 09/27/17 SOAP: Subjective: admitted with chest pain and positive troponins with plan to go to [facility] today or tomorrow. currently having bilateral shoulder discomfort and is being moved to the ICU to start a nitro drip. last paracentesis was Monday and tolerated well. Objective: Vital Signs Temp Pulse Resp BP Pulse Ox 97.2 F 81 14 109/59 97 09/27/17 08:32 09/27/17 08:32 09/27/17 08:32 09/27/17 08:32 09/27/17 08:32 sitting up with mild bilateral shoulder pain perr eomi op moist cta bl s1 s2 nl abd distended, +fluid wave no le edema A+O x 3, nonfocal neurological exam Laboratory Results - last 24 hr 09/26/17 09/26/17 09/26/17 20:00 20:00 20:00 WBC 5.5 RBC 4.40 Hgb 12.1 L Hct 38 L MCV 85 MCH 28 MCHC 32 RDW 18 H Plt Count 244 MPV 8 Neut % (Auto) 75.0 Lymph % (Auto) 14.2 L Nobles % (Auto) 9.5 H Eos % (Auto) 0.7 Baso % (Auto) 0.6 Absolute Neuts (auto) 4.2 Absolute Lymphs (auto) 0.8 L Absolute Monos (auto) 0.5 Absolute Eos (auto) 0 Absolute Basos (auto) 0 Absolute Nucleated RBC 0 Nucleated RBC % 0 APTT D-Dimer, Quantitative Sodium 131 L Potassium 5.0 Chloride 102 Carbon Dioxide 24 Anion Gap 5 BUN 37 H Creatinine 1.81 H Est GFR ( Amer) 47.2 Est GFR (Non-Af Amer) 36.7 BUN/Creatinine Ratio 20.4 H Glucose 103 H Lactic Acid 1.5 Calcium 8.8 Total Bilirubin 0.30 AST 26 ALT 17 Alkaline Phosphatase 132 H Total Creatine Kinase 22 CK-MB (CK-2) 2.5 Troponin I 0.07 H* Total Protein 6.9 Albumin 3.2 Globulin 3.7 Albumin/Globulin Ratio 0.9 L 09/26/17 09/26/17 09/27/17 20:00 21:40 00:51 WBC RBC Hgb Hct MCV MCH MCHC RDW Plt Count MPV Neut % (Auto) Lymph % (Auto) Nobles % (Auto) Eos % (Auto) Baso % (Auto) Absolute Neuts (auto) Absolute Lymphs (auto) Absolute Monos (auto) Absolute Eos (auto) Absolute Basos (auto) Absolute Nucleated RBC Nucleated RBC % APTT 30.2 D-Dimer, Quantitative 406 H Sodium Potassium Chloride Carbon Dioxide Anion Gap BUN Creatinine Est GFR ( Amer) Est GFR (Non-Af Amer) BUN/Creatinine Ratio Glucose Lactic Acid Calcium Total Bilirubin AST ALT Alkaline Phosphatase Total Creatine Kinase 23 CK-MB (CK-2) 2.2 Troponin I 0.08 H* Total Protein Albumin Globulin Albumin/Globulin Ratio 09/27/17 09/27/17 09/27/17 00:55 08:09 08:09 WBC 2.8 L RBC 3.84 L Hgb 10.7 L Hct 33 L MCV 85 MCH 28 MCHC 33 RDW 18 H Plt Count 188 MPV 9 Neut % (Auto) 61.3 Lymph % (Auto) 22.7 L Nobles % (Auto) 11.5 H Eos % (Auto) 3.2 Baso % (Auto) 1.3 Absolute Neuts (auto) 1.7 Absolute Lymphs (auto) 0.6 L Absolute Monos (auto) 0.3 Absolute Eos (auto) 0.1 Absolute Basos (auto) 0 Absolute Nucleated RBC 0 Nucleated RBC % 0.1 APTT D-Dimer, Quantitative Sodium Potassium Chloride Carbon Dioxide Anion Gap BUN 37 H Creatinine 1.77 H Est GFR ( Amer) 48.5 Est GFR (Non-Af Amer) 37.7 BUN/Creatinine Ratio Glucose Lactic Acid Calcium Total Bilirubin AST ALT Alkaline Phosphatase Total Creatine Kinase 18 18 CK-MB (CK-2) 1.9 2.4 Troponin I 0.08 H* 0.11 H* Total Protein Albumin Globulin Albumin/Globulin Ratio 09/27/17 08:09 WBC RBC Hgb Hct MCV MCH MCHC RDW Plt Count MPV Neut % (Auto) Lymph % (Auto) Nobles % (Auto) Eos % (Auto) Baso % (Auto) Absolute Neuts (auto) Absolute Lymphs (auto) Absolute Monos (auto) Absolute Eos (auto) Absolute Basos (auto) Absolute Nucleated RBC Nucleated RBC % APTT 86.6 H D-Dimer, Quantitative Sodium Potassium Chloride Carbon Dioxide Anion Gap BUN Creatinine Est GFR ( Amer) Est GFR (Non-Af Amer) BUN/Creatinine Ratio Glucose Lactic Acid Calcium Total Bilirubin AST ALT Alkaline Phosphatase Total Creatine Kinase CK-MB (CK-2) Troponin I Total Protein Albumin Globulin Albumin/Globulin Ratio Assessment: 77 yo M w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 unclear etiology getting weekly paracentesis in our office by Dr. Guillen. He is having ACS and we are asked to weigh in on dual antiplatelet agents and ability to continue to do paracenteses. From a hematologic prospective, he has a normal platelet count and so we would be comfortable continuing in office paracenteses on dual antiplatelet agent therapy. It would be reasonable to ask GI if from a cirrhosis (and possible variceal) perspective if they think this is advisable, or if a drug eluding stent would be better. recommendations verbalized to Dr. Joshua and primary team.
--- NOTE | 2017-09-27 10:21 | PN ---
Subjective Date of Service: 09/27/17 Interval History: Patient seen and examined at bedside. Denies fever, chills, shortness of breath , chest discomfort, N/V/D. Pt states that he has a mild bilateral shoulder discomfort at this time. Tele: Paced, rate 70-80's. Family History: Unchanged from Admission Social History: Unchanged from Admission Past Medical History: Unchanged from Admission Objective Active Medications: Acetaminophen (Tylenol Tab*) 650 mg PO Q6H PRN Reason: PAIN Acetylcysteine (Mucomyst Oral Annel*) 600 mg PO BID [facility] Stop: 09/28/17 21:01 Aspirin (Aspirin Ec Low Dose*) 81 mg PO QAM [facility] Cephalexin HCl (Keflex Cap*) 500 mg PO BID [facility] Furosemide (Lasix Tab*) 40 mg PO 0800,1600 [facility] Heparin Sodium (Porcine) (Heparin Vial(*)) 0 units IV .PER PROTOCOL [facility] Heparin Sodium/Dextrose (Heparin Drip 25,000 Units(*)) 25,000 units in 500 mls @ 0 mls/hr IVPB PER RATE IVANA; Per Protocol Nitroglycerin/Dextrose (Nitroglycerin Drip*) 25,000 mcg in 250 mls @ 1.2 mls/ hr IV .(Initial Rate) IVANA; 2 MCG/MIN Metoprolol Tartrate (Lopressor Tab*) 25 mg PO 0900,2100 [facility] Morphine Sulfate (Morphine Inj (Syringe)*) 2 mg IV Q4H PRN Reason: PAIN - MILD Nitroglycerin (Nitroglycerin Tab 0.4 Mg*) 0.4 mg SL ONCE ONE Stop: 09/27/17 10:11 Spironolactone (Aldactone Tab*) 50 mg PO QPM [facility] Vital Signs - 8 hr 09/27/17 09/27/17 04:11 08:32 Temperature 98.0 F 97.2 F Pulse Rate 92 81 Respiratory 16 14 Rate Blood Pressure 90/48 109/59 (mmHg) O2 Sat by Pulse 99 97 Oximetry Oxygen Devices in Use Now: None Appearance: NAD, sitting up in bed Ears/Nose/Mouth/Throat: Mucous Membranes Moist Respiratory: Symmetrical Chest Expansion and Respiratory Effort, Clear to Auscultation Cardiovascular: NL Sounds; No Murmurs; No JVD, RRR Abdominal: NL Sounds; No Tenderness; No Distention, - - Abdomen large and soft Extremities: No Edema Skin: No Rash or Ulcers Neurological: Alert and Oriented x 3, NL Muscle Strength and Tone Lines/Tubes/Other Access: Clean, Dry and Intact Peripheral IV - site benign Nutrition: Taking PO's Result Diagrams: 09/27/17 08:09 09/27/17 08:09 Additional Lab and Data: Assess/Plan/Problems-Billing Assessment: Mr. Ashford is a 77 yo male with PMH significant for cryptogenic cirrhosis, CAD , liver failure, hx SVT, HLD, arthritis, BPH, bladder CA, and CKD who presented to the emergency room with complaints of chest discomfort. - Patient Problems (1) Chest pain Code(s): R07.9 - CHEST PAIN, UNSPECIFIED SNOMED Code(s): 45630434 Comment: - C/O bilateral shoulder discomfort this AM - Concern for ACS - Trop 0.07, 0.08, 0.08, 0.11 - Cardiology and Interventional cardiology consults, input appreciated - Bilateral LE venous doppler negative, suspect d-dimer may be elevated in setting of possible ACS - Plan for cardiac cath in the AM - Trend troponins until peak - Given 1 SL Nitro, will start low dose Nitro gtt - Continue heparin gtt and metoprolol (2) Cryptogenic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 liver Code(s): K74.69 - OTHER CIRRHOSIS OF LIVER SNOMED Code(s): 30330442 Comment: - GI consult, pending - Hold Lasix and Spironolactone until approved by Cardiology post-cath (3) Pacemaker Code(s): Z95.0 - PRESENCE OF CARDIAC PACEMAKER SNOMED Code(s): 285348024 Comment: - S/P battery replacement - Continue Keflex (4) CAD (coronary artery disease) Code(s): I25.10 - ATHSCL HEART DISEASE OF [place] CORONARY ARTERY W/O ANG PCTRS SNOMED Code(s): 81970046 Comment: - Continue ASA and metoprolol (5) HLD (hyperlipidemia) Code(s): E78.5 - HYPERLIPIDEMIA, UNSPECIFIED SNOMED Code(s): 92893265 Comment: - No currently on medications - Check fasting lipids in the AM (6) CKD (chronic kidney disease) Code(s): N18.9 - CHRONIC KIDNEY DISEASE, UNSPECIFIED SNOMED Code(s): 036516567 Comment: - Stage 3-4 at baseline - Continue to monitor and limit nephrotoxic agents (7) BPH (benign prostatic hyperplasia) Code(s): N40.0 - BENIGN PROSTATIC HYPERPLASIA WITHOUT LOWER URINRY TRACT SYMP SNOMED Code(s): 865964214 (8) SALEEM (obstructive sleep apnea) Code(s): G47.33 - OBSTRUCTIVE SLEEP APNEA (ADULT) (PEDIATRIC) SNOMED Code(s): 64948872 Comment: - CPAP (9) DVT prophylaxis Code(s): PYL4800 - SNOMED Code(s): 813082741 Comment: - Continue heparin gtt (10) Full code status Code(s): Z78.9 - OTHER SPECIFIED HEALTH STATUS SNOMED Code(s): 085454867 Status and Disposition: OBV to Inpatient. Discharge to home when medically stable, plan for cardiac cath in the AM.
[2017-09-27] MEDS ORDERED: nitroGLYCERIN DRIP* 25,000 MCG/250 ML BTL IV SCH (11:00)
[2017-09-27] MEDS: Acetylcysteine ORAL SOL* 200 MG/ML VIAL PO SCH ×2 (13:03→21:45)
[2017-09-27] MEDS ORDERED: Spironolactone TAB* 25 MG PO SCH (18:00)
[2017-09-27] MEDS: Metoprolol Tartrate TAB* 25 MG PO SCH (19:35)
--- NOTE | 2017-09-27 20:50 | CONS ---
CC: Dr. Johnston * GASTROENTEROLOGY CONSULTATION: DATE OF CONSULT: 09/27/17 REFERRING PHYSICIAN: Dr. Johnston. HISTORY OF PRESENT ILLNESS: Thank you for asking me to see Mr. Ashford. As you know, he is a pleasant 77-year-old male who has a history of coronary artery disease, status post multiple stents in the past as well as a recent pacemaker insertion with battery replacement, discharged yesterday from the hospital. The patient has a history of cryptogenic cirrhosis. The patient states that he was seen by Dr. Ruiz last year when he developed the onset of ascites. He did undergo upper endoscopy in November 2016, which revealed no evidence of esophageal varices, but evidence of portal hypertensive gastropathy. The patient states he was referred to the [facility] in [place], [place] for second opinion regarding his liver disease. He states no etiology was ever determined, thus given a diagnosis of cryptogenic cirrhosis. The patient has been undergoing frequent paracentesis with Dr. Guillen and the patient states he has been having paracentesis every 2 weeks or so. The patient presented yesterday with complaints of bilateral arm pain, heaviness in his chest and some shortness of breath. The patient is scheduled to undergo cardiac catheterization with stent placement tomorrow. I am asked to see the patient regarding the use of antiplatelet therapy in the event a drug-eluting stent is placed. According to the patient and , who is seeing the patient in cardiac consultation, has had conversations with the patient's family who wishes the patient to be sent to [place] for further care and management. Apparently, Dr. Solo has been spoken to and is not concerned about further paracentesis in the setting of antiplatelet therapy. The patient currently is comfortable, has no complaints. Laboratory testing reveals hematocrit of 38 on admission, down to 33; white blood count of 2.8; platelet count of 188. His troponin T is elevated. His liver function tests are essentially normal with minimally elevated alkaline phosphatase of 132. The patient is on IV heparin. He is currently in the intensive care unit. Admission BUN of 37 with creatinine of 1.8. PAST MEDICAL HISTORY: Significant for: 1. Cryptogenic cirrhosis requiring paracentesis every 2 weeks. 2. Coronary artery disease, status post multiple stent placements, pacemaker insertion. 3. History of SVT. 4. Hyperlipidemia. 5. Bladder cancer. 6. Chronic renal insufficiency. MEDICATIONS: At home include: 1. Lasix 40 mg twice a day. 2. Aldactone 50 mg daily. 3. Aspirin. ALLERGIES: LATEX, MIDODRINE, and HORSE SERUM. FAMILY HISTORY: Significant for a brother with colon cancer and father with bladder cancer. SOCIAL HISTORY: The patient lives at home with his who apparently is his healthcare proxy. No tobacco or alcohol abuse. REVIEW OF SYSTEMS: A 10-point review of systems is performed and is negative. PHYSICAL EXAM: Mr. Ashford is a 77-year-old male. Temperature is 97.6, heart rate of 81, blood pressure 109/59. HEENT Exam: There is no scleral icterus. Heart is regular rate and rhythm. Lungs are clear. Abdomen is soft, but distended with ascites. Bowel sounds are present. There is no tenderness. Extremities: 3/4 pitting edema. Neuro exam is grossly intact. Alert and oriented x3. Skin is warm and dry without rash. PERTINENT LABORATORY STUDIES: As described above. IMPRESSION: Mr. Ashford has cryptogenic cirrhosis with refractory ascites requiring paracentesis every 2 to 3 weeks. He now has evidence of coronary artery disease and is planned for cardiac catheterization with stent placement tomorrow. The issue is whether to place a bare-metal stent or drug-eluting stent requiring antiplatelet therapy. The oncology team has suggested the antiplatelet therapy is not an issue with paracentesis; however, I have concerns about antiplatelet therapy for 1 year given the patient's known portal hypertensive gastropathy and potential chronic blood loss and also potential need for TIPS procedure within the next year if there is progression of his cirrhosis, ascites and possible development of esophageal varices. None to these can be predicted, but would be of concern. Bare- metal stent would only require antiplatelet therapy for 4 to 6 weeks and this would be my recommendation. Again, the patient's family has requested transfer to [place]. The patient himself wishes to stay here at [facility]. There will be family discussions regarding his care and eventual plan regarding further management here or transfer. [id number]/[facility] #: [id number] [facility] HOSPITALMadeleine
--- NOTE | 2017-09-27 22:48 | OP ---
CC: Dr. [place], [place] OPERATIVE REPORT: DATE OF OPERATION: 09/25/17 DATE OF : 44 SURGEON: Angelic Olmedo MD ANESTHESIA: MAC. PRE-OP DIAGNOSIS: Complete heart block with current pacer replacement. POST-OP DIAGNOSIS: Complete heart block with current pacer replacement. OPERATIVE PROCEDURE: Pacemaker generator change. COMPLICATIONS: None. ESTIMATED BLOOD LOSS: Less than 1 cc. DESCRIPTION OF PROCEDURE: The indications, risks, and benefits of the procedure had been discussed with the patient's the week prior and with the patient on the day of the procedure and he was amenable to proceeding. The existing pacer in the left subclavian fossa was prepped and draped in the usual sterile fashion and a time-out procedure was called. The patient received a total of 3 mg of Versed and 25 mcg of fentanyl throughout the procedure and 250 cc IV bolus throughout the procedure. The patient received approximately 15 cc of 1% lidocaine for local anesthesia following which using a 10-blade knife, a 3-cm incision was made over the existing device. Using Bovie cautery and blunt dissection, the incision was extended to the device. Using Metzenbaum and Addson's a small darren was made in the fascial covering and this was carefully extended medially and laterally taking care to avoid any leads. The existing device was then explanted. Both leads were removed from the device, there was very a slow underlying junctional escape rhythm and he remained in complete heart block. Both leads were checked and found to be in good condition. The pocket was then copiously irrigated with normal saline. The leads were attached to the new generator and the generator was placed in the pocket. Thresholds were rechecked and the incision was closed using 3 layers of resorbable suture, one layer interrupted, 2-0 resorbable suture followed by a running 2-0 resorbable suture followed 3-0 resorbable suture followed by jun and an external dressing. FINDINGS: The explanted device is a Medtronic model ADDRL1, serial # [id number]. The newly implanted device is an MRI compatible device A2DR01, serial #[id number]. The existing atrial lead was a Medtronic model 594477, serial number [id number]. The existing ventricular lead was Medtronic Model 565337, serial # [id number]. The atrial lead measured P wave of 4.2 millivolts with an atrial lead impedance of 392 ohms and atrial pacing threshold of 0.4 volts at 0.5 milliseconds. The junctional escape rhythm had R waves measured at 5.0 millivolts with ventricular lead impedance of 427 ohms and a ventricular pacing threshold of 0.6 volts at 0.5 milliseconds. The patient's device was programmed at DDD mode with a lower rate of 50 beats a minute and upper tracking rate of 120 beats a minute. Mode switching at 171 beats per minute with the paced AV and sensed AV of 200 milliseconds (previous programming). The patient had a transient drop in blood pressure to 88 systolic which responded to normal saline. The patient was able to converse throughout the procedure. The patient was hemodynamically stable at the end of the procedure and transferred to the floor. [id number]/[facility] #: [id number] [place]
[2017-09-28] MEDS ORDERED: NS 0.9% 1000 ML* 1,000 ML IV SCH ×2 (05:00→09:30)
[2017-09-28 05:56] LABS: ABS Basophils 0 10^3/ul (0-0.2); ABS Eosinophils 0.1 10^3/ul (0-0.6); ABS Lymphocytes 0.6 10^3/ul (1.0-4.8); ABS Monocytes 0.3 10^3/ul (0-0.8); ABS Nucleated RBC 0 10^3/ul; Hematocrit 34 % (42-52); Lymphocyte % 19.9 % (25-47); Mean Corpuscular HGB Conc 33 g/dl (31-36); Mean Corpuscular Hemoglobin 28 pg (27-31); Mean Corpuscular Volume 85 fL (80-94); Mean Platelet Volume 8 um3 (7.4-10.4); Nucleated Red Blood Cells % 0.1; Platelet Count 170 10^3/ul (150-450); Red Blood Count 3.96 10^6/ul (4.0-5.4); Red Cell Distribution Width 18 % (10.5-15); White Blood Count 3.1 10^3/ul (3.5-10.8)
[2017-09-28 06:07] LABS: EGFR Non-African American 39.8 (>60)
[2017-09-28] MEDS ORDERED: fentaNYL* 50 MCG/ML 2 ML VIAL (100 MCG VIAL) ONE (07:19)
[2017-09-28] MEDS ORDERED: Heparin(*) 1000 UNIT/ML 10 ML VIAL CATH LAB IV ONE (07:19)
[2017-09-28] MEDS ORDERED: Heparin 2 UNITS/ML IVPREMIX* 3,000 ML IV ONE (07:20)
[2017-09-28] MEDS ORDERED: nitroGLYCERIN DRIP* 25,000 MCG/250 ML BTL ONE (07:20)
[2017-09-28] MEDS ORDERED: Iodixanol* (CONTRAST) 320 MG/ML 100 ML SDV ONE (07:20)
[2017-09-28] MEDS ORDERED: Lidocaine 1% INJ* 10 MG/ML 30 ML SDV ONE (07:20)
[2017-09-28] MEDS ORDERED: Midazolam* 1 MG/ML 10 ML VIAL (10 MG) ONE (07:20)
[2017-09-28] MEDS ORDERED: VERAPAMIL 2.5 MG/ML 2 ML VIAL ** 5 mg/2 ml ONE (07:21)
[2017-09-28] MEDS ORDERED: Aspirin Low Dose CHEW TAB* 81 MG ONE (07:52)
[2017-09-28] MEDS: Aspirin EC Low Dose* 81 MG TAB.EC PO SCH (07:54)
[2017-09-28] MEDS ORDERED: Norepinephrine 16MCG/ML IVPRE* 4,000 MCG/250 ML BAG IV ONE (08:19)
[2017-09-28] MEDS ORDERED: Ticagrelor* 90 MG TAB PO ONE (08:47)
[2017-09-28] MEDS ORDERED: Nitroglycerin TAB 0.4 MG* 0.4 MG TAB SL PRN (09:30)
[2017-09-28] MEDS ORDERED: Atorvastatin* 80 MG TAB PO ONE (10:14)
[2017-09-28] MEDS: Cephalexin CAP* 500 MG PO SCH ×2 (10:41→20:41)
[2017-09-28] MEDS: Metoprolol Tartrate TAB* 25 MG PO SCH ×2 (10:41→20:42)
[2017-09-28] MEDS: Acetylcysteine ORAL SOL* 200 MG/ML VIAL PO SCH ×2 (12:13→20:44)
[2017-09-28] MEDS ORDERED: Atropine SYRINGE* 0.1 MG/ML 10 ML SYRINGE (1 MG) ONE (13:40)
--- NOTE | 2017-09-28 17:54 | PN ---
Subjective Date of Service: 09/28/17 Interval History: Patient seen and examined at bedside. Denies fever, chills, chest discomfort, shortness of breath, N/V/D. Events of post-cath noted, Pt was hypotensive and bradycardic. He received atropine. Tele: Paced, rate 80's Family History: Unchanged from Admission Social History: Unchanged from Admission Past Medical History: Unchanged from Admission Objective Active Medications: Acetaminophen (Tylenol Tab*) 650 mg PO Q6H PRN Reason: PAIN Acetylcysteine (Mucomyst Oral Annel*) 600 mg PO BID [facility] Stop: 09/28/17 21:01 Aspirin (Aspirin Low Dose Tab*) 81 mg PO DAILY [facility] Atorvastatin Calcium (Lipitor*) 40 mg PO 1700 [facility] Cephalexin HCl (Keflex Cap*) 500 mg PO BID [facility] Heparin Sodium (Porcine) (Heparin Vial(*)) 0 units IV .PER PROTOCOL IVANA Reason : Protocol Heparin Sodium/Dextrose (Heparin Drip 25,000 Units(*)) 25,000 units in 500 mls @ 0 mls/hr IVPB PER RATE IVANA; Per Protocol Nitroglycerin/Dextrose (Nitroglycerin Drip*) 25,000 mcg in 250 mls @ 1.2 mls/ hr IV .(Initial Rate) IVANA; 2 MCG/MIN Reason: Protocol Sodium Chloride (Ns 0.9% 1000 Ml*) 1,000 mls @ 100 mls/hr IV .per rate IVANA Stop: 09/28/17 22:00 Metoprolol Tartrate (Lopressor Tab*) 25 mg PO 0900,2100 [facility] Morphine Sulfate (Morphine Inj (Syringe)*) 2 mg IV Q4H PRN Reason: PAIN - MILD Nitroglycerin (Nitroglycerin Tab 0.4 Mg*) 0.4 mg SL Q5M PRN Reason: ANGINA Ticagrelor (Brilinta*) 90 mg PO BID [facility] Vital Signs - 8 hr 09/28/17 09/28/17 09/28/17 09:54 10:00 10:20 Temperature Pulse Rate 91 91 94 Respiratory 9 21 21 Rate Blood Pressure 122/88 (mmHg) O2 Sat by Pulse 99 97 99 Oximetry 09/28/17 09/28/17 09/28/17 10:30 10:45 11:00 Temperature Pulse Rate 88 85 88 Respiratory 15 21 13 Rate Blood Pressure 119/73 113/68 117/78 (mmHg) O2 Sat by Pulse 98 100 99 Oximetry 09/28/17 09/28/17 09/28/17 11:01 11:30 11:45 Temperature Pulse Rate 90 82 78 Respiratory 15 17 19 Rate Blood Pressure 113/75 96/66 (mmHg) O2 Sat by Pulse 99 99 99 Oximetry 09/28/17 09/28/17 09/28/17 12:00 12:16 12:30 Temperature Pulse Rate 74 78 69 Respiratory 18 17 15 Rate Blood Pressure 89/58 98/79 104/61 (mmHg) O2 Sat by Pulse 100 100 100 Oximetry 09/28/17 09/28/17 09/28/17 13:00 13:07 14:00 Temperature 98.5 F Pulse Rate 67 Respiratory 14 22 Rate Blood Pressure (mmHg) O2 Sat by Pulse 99 Oximetry 09/28/17 09/28/17 09/28/17 14:09 14:15 14:20 Temperature Pulse Rate 75 77 Respiratory 19 17 21 Rate Blood Pressure 115/74 119/75 132/80 (mmHg) O2 Sat by Pulse Oximetry 09/28/17 09/28/17 09/28/17 14:25 14:30 14:35 Temperature Pulse Rate 77 76 78 Respiratory 20 21 19 Rate Blood Pressure 121/73 115/73 115/74 (mmHg) O2 Sat by Pulse 100 100 100 Oximetry 09/28/17 09/28/17 09/28/17 14:41 14:45 14:50 Temperature Pulse Rate 79 79 79 Respiratory 24 15 19 Rate Blood Pressure 99/60 130/70 117/69 (mmHg) O2 Sat by Pulse 99 98 99 Oximetry 09/28/17 09/28/17 09/28/17 14:55 15:00 15:01 Temperature Pulse Rate 77 80 80 Respiratory 13 14 15 Rate Blood Pressure 112/70 125/78 (mmHg) O2 Sat by Pulse 98 100 99 Oximetry 09/28/17 09/28/17 09/28/17 15:05 15:10 15:16 Temperature Pulse Rate 76 81 79 Respiratory 12 21 15 Rate Blood Pressure 107/68 118/72 117/70 (mmHg) O2 Sat by Pulse 99 98 99 Oximetry 09/28/17 09/28/17 09/28/17 15:19 15:20 15:25 Temperature Pulse Rate 79 78 79 Respiratory 22 19 20 Rate Blood Pressure 113/61 121/63 107/60 (mmHg) O2 Sat by Pulse 99 100 99 Oximetry 09/28/17 09/28/17 09/28/17 15:31 15:35 15:40 Temperature Pulse Rate 81 79 79 Respiratory 22 18 17 Rate Blood Pressure 104/51 99/61 97/54 (mmHg) O2 Sat by Pulse 100 100 99 Oximetry 09/28/17 09/28/17 09/28/17 15:45 15:50 15:55 Temperature Pulse Rate 81 83 83 Respiratory 20 19 21 Rate Blood Pressure 105/63 116/72 110/59 (mmHg) O2 Sat by Pulse 100 99 100 Oximetry 09/28/17 09/28/17 09/28/17 16:00 16:06 16:11 Temperature Pulse Rate 82 82 81 Respiratory 17 20 17 Rate Blood Pressure 132/60 113/58 118/64 (mmHg) O2 Sat by Pulse 100 99 99 Oximetry 09/28/17 09/28/17 09/28/17 16:16 16:20 16:25 Temperature Pulse Rate 82 83 83 Respiratory 15 17 19 Rate Blood Pressure 106/55 113/63 105/53 (mmHg) O2 Sat by Pulse 98 99 100 Oximetry 09/28/17 09/28/17 09/28/17 16:30 16:35 16:40 Temperature Pulse Rate 84 82 83 Respiratory 21 27 19 Rate Blood Pressure 108/69 119/68 122/65 (mmHg) O2 Sat by Pulse 99 100 100 Oximetry 09/28/17 09/28/17 09/28/17 16:46 16:50 16:56 Temperature Pulse Rate 81 81 87 Respiratory 14 20 22 Rate Blood Pressure 99/56 100/55 65/56 (mmHg) O2 Sat by Pulse 99 99 100 Oximetry 09/28/17 09/28/17 09/28/17 17:00 17:01 17:06 Temperature 98.0 F Pulse Rate 84 83 82 Respiratory 26 17 20 Rate Blood Pressure 113/72 88/66 (mmHg) O2 Sat by Pulse 100 100 100 Oximetry 09/28/17 09/28/17 17:10 17:15 Temperature Pulse Rate 86 81 Respiratory 21 19 Rate Blood Pressure 102/66 111/57 (mmHg) O2 Sat by Pulse 100 100 Oximetry Oxygen Devices in Use Now: None Appearance: NAD, laying in bed Ears/Nose/Mouth/Throat: Mucous Membranes Moist Respiratory: Symmetrical Chest Expansion and Respiratory Effort, Clear to Auscultation Cardiovascular: NL Sounds; No Murmurs; No JVD, RRR Abdominal: NL Sounds; No Tenderness; No Distention Extremities: No Edema Skin: No Rash or Ulcers Neurological: Alert and Oriented x 3, NL Muscle Strength and Tone Lines/Tubes/Other Access: Clean, Dry and Intact Peripheral IV - site benign Nutrition: Taking PO's Result Diagrams: 09/28/17 05:00 09/28/17 05:00 Additional Lab and Data: Assess/Plan/Problems-Billing Assessment: Mr. Ashford is a 77 yo male with PMH significant for cryptogenic cirrhosis, CAD , liver failure, hx SVT, HLD, arthritis, BPH, bladder CA, and CKD who presented to the emergency room with complaints of chest discomfort. - Patient Problems (1) Chest pain Code(s): R07.9 - CHEST PAIN, UNSPECIFIED SNOMED Code(s): 54202983 Comment: - C/O bilateral shoulder discomfort this AM - Concern for ACS - Trop 0.07, 0.08, 0.08, 0.11, 0.14, 0.21, 0.23 - Cardiology and Interventional cardiology consults, input appreciated - Bilateral LE venous doppler negative, suspect d-dimer may be elevated in setting of possible ACS - S/P cardiac cath, with 1 stent placed - Continue metoprolol, atorvastain, brilinta and ASA (2) Cryptogenic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 liver Code(s): K74.69 - OTHER CIRRHOSIS OF LIVER SNOMED Code(s): 38896018 Comment: - GI consult, input appreciated - Resume Lasix and Spironolactone when approved by Cardiology post-cath (3) Pacemaker Code(s): Z95.0 - PRESENCE OF CARDIAC PACEMAKER SNOMED Code(s): 133569455 Comment: - S/P battery replacement - Continue Keflex (4) CAD (coronary artery disease) Code(s): I25.10 - ATHSCL HEART DISEASE OF [place] CORONARY ARTERY W/O ANG PCTRS SNOMED Code(s): 04804263 Comment: - Continue ASA and metoprolol (5) HLD (hyperlipidemia) Code(s): E78.5 - HYPERLIPIDEMIA, UNSPECIFIED SNOMED Code(s): 23177859 Comment: - Cholesterol 182, LDL 124 - Continue atorvastain (6) CKD (chronic kidney disease) Code(s): N18.9 - CHRONIC KIDNEY DISEASE, UNSPECIFIED SNOMED Code(s): 595130061 Comment: - Stage 3-4 at baseline - Continue to monitor and limit nephrotoxic agents (7) BPH (benign prostatic hyperplasia) Code(s): N40.0 - BENIGN PROSTATIC HYPERPLASIA WITHOUT LOWER URINRY TRACT SYMP SNOMED Code(s): 580685697 (8) SALEEM (obstructive sleep apnea) Code(s): G47.33 - OBSTRUCTIVE SLEEP APNEA (ADULT) (PEDIATRIC) SNOMED Code(s): 82091437 Comment: - CPAP (9) DVT prophylaxis Code(s): VOW5936 - SNOMED Code(s): 623881211 Comment: - SCDs (10) Full code status Code(s): Z78.9 - OTHER SPECIFIED HEALTH STATUS SNOMED Code(s): 130458706 Status and Disposition: Inpatient. Discharge to home when medically stable, possibly in the AM.
[2017-09-28] MEDS: Ticagrelor* 90 MG TAB PO SCH (20:42)
[2017-09-28] MEDS ORDERED: Atorvastatin* 40 MG TAB PO SCH (21:00)
[2017-09-29 06:03] LABS: ABS Basophils 0 10^3/ul (0-0.2); ABS Eosinophils 0 10^3/ul (0-0.6); ABS Lymphocytes 0.5 10^3/ul (1.0-4.8); ABS Monocytes 0.4 10^3/ul (0-0.8); ABS Neutrophils 3.2 10^3/ul (1.5-7.7); ABS Nucleated RBC 0 10^3/ul; Eosinophil % 1.2 % (0-6); Hematocrit 32 % (42-52); Hemoglobin 10.5 g/dl (14.0-18.0); Lymphocyte % 11.9 % (25-47); Mean Corpuscular HGB Conc 33 g/dl (31-36); Mean Corpuscular Hemoglobin 28 pg (27-31); Mean Corpuscular Volume 84 fL (80-94); Mean Platelet Volume 8 um3 (7.4-10.4); Nucleated Red Blood Cells % 0; Platelet Count 203 10^3/ul (150-450); Red Blood Count 3.74 10^6/ul (4.0-5.4); Red Cell Distribution Width 18 % (10.5-15); White Blood Count 4.1 10^3/ul (3.5-10.8)
[2017-09-29 06:28] LABS: EGFR Non-African American 43.6 (>60)
[2017-09-29] MEDS ORDERED: Furosemide TAB* 40 MG PO SCH (08:00)
--- NOTE | 2017-09-29 08:37 | ECHO ---
Patient: DIYA FRANCO [facility] Rec#: [id number] : 1940 Date: 09/29/2017 Age: 77y Height: 180.34 cm / 71.0 in Weight: 95.71 kg / 210.9 lbs Sex: M BSA: 2.16 Room#: [facility] Admit Date#: 09/27/2017 Type: Inpatient Referring: Patrick Joshua MD Reading: Patrick Joshua MD Radiator Fitter: Shruti PeñaLORRIE CC: Franklyn Johnston MD Transthoracic Echocardiogram Indication: NSTEMI, S/P PCI BP: 126/58 HR: 75 Rhythm: Paced Findings History: CAD s/p PCI 09/28/17, s/p pacer, HLD, monoclonal gammopathy, amyloidosis, and former smoker. Technical Comments: The study quality is fair. The study is technically limited due to patient body habitus. Completed at 0830. Left Ventricle: The left ventricular chamber size is decreased. Moderate concentric left ventricular hypertrophy is observed. There is normal left ventricular systolic function. The estimated ejection fraction is 60-65%. There is abnormal ventricular septal wall motion consistent with right ventricular pacemaker. The assessment of diastolic function is non-diagnostic. Left Atrium: The left atrium is mildly dilated. Right Ventricle: Moderator Band present. The right ventricular cavity size is normal. The right ventricular global systolic function is normal. A pacemaker wire is visualized in the right ventricle. Right Atrium: The right atrial cavity size is normal. A pacemaker wire is visualized in the right atrium. Aortic Valve: The aortic valve is trileaflet. The aortic valve leaflets are mildly thickened. There is aortic annular calcification. There is a trace of aortic regurgitation. There is no evidence of aortic stenosis. Mitral Valve: The mitral valve leaflets are mildly thickened. There is mild mitral regurgitation. There is no evidence of mitral stenosis. Tricuspid Valve: The tricuspid valve leaflets are normal. There is mild tricuspid regurgitation. The right ventricular systolic pressure is estimated at 40 mmHg. There is evidence of mild pulmonary hypertension. There is no tricuspid stenosis. Pulmonic Valve: The pulmonic valve appears normal. There is a trace pulmonic regurgitation. There is no pulmonic stenosis. Pericardium: There is no significant pericardial effusion. There are no signs of significant hemodynamic compromise. Aorta: There is no dilatation of the ascending aorta. There is no dilatation of the aortic arch. The aortic root is normal in size. Pulmonary Artery: The main pulmonary artery appears normal. Venous: The inferior vena cava is dilated. There is an approximate 50% respiratory change in the inferior vena cava dimension. Conclusions Moderate concentric left ventricular hypertrophy is observed. There is normal left ventricular systolic function. The estimated ejection fraction is 60-65%. There is abnormal ventricular septal wall motion consistent with right ventricular pacemaker. The assessment of diastolic function is non-diagnostic. The left atrium is mildly dilated. A pacemaker wire is visualized in the right atrium. There is a trace of aortic regurgitation. There is mild mitral regurgitation. There is mild tricuspid regurgitation. There is evidence of mild pulmonary hypertension. There is a trace pulmonic regurgitation. Compared to report of prior study from 09/22/2017 there is less peritoneal fliud noted. Dopple analysis on current study does not suggest any hemodynamic compromise. Measurements Name Value Normal Range RVIDd (AP) 2D 3 cm (0.9 - 2.6) RVDdMajor (2D) 3.7 cm (2.2 - 4.4) RAd ISD 4CH 4.9 cm (3.4 - 4.9) RA (A4C)W 4 cm (2.9 - 4.6) IVSd (2D) 1.4 cm (0.6 - 1) LVPWd (2D) 1.3 cm (0.6 - 1) LVIDd (2D) 3.4 cm (3.6 - 5.4) LVIDs (2D) 2.1 cm - LV FS (2D) 39 % (25 - 45) Aortic Annulus 1.7 cm (1.4 - 2.6) Ao root diameter (2D) 3.3 cm (2.1 - 3.5) Ascending Ao 3.4 cm (2.1 - 3.4) Aortic arch 2.8 cm (1.8 - 3.4) LA dimension (AP) 2D 4.2 cm (2.3 - 3.8) LAd ISD 4CH 6.1 cm (2.9 - 5.3) LA ISD 4CH W 4.2 cm (2.5 - 4.5) Name Value Normal Range LA ESV SP 4CH (A/L) 76 ml - LA ESV SP 2CH (A/L) 70 ml - LA ESV BP (A/L) 75 ml - LA ESV BP (A/L) index 35 ml/m2 - LA ESV SP 4CH (MOD) 72 ml - LA ESV SP 2CH (MOD) 66 ml - Name Value Normal Range MV E-wave Vmax 0.8 m/sec - MV deceleration time 107.4 msec - MV A-wave Vmax 0.99 m/sec - MV E:A ratio 0.8 ratio - LV septal e' Vmax 0.08 m/sec - LV lateral e' Vmax 0.14 m/sec - LV E:e' septal ratio 10 ratio - LV E:e' lateral ratio 5.71 ratio - Name Value Normal Range AV Vmax 1.5 m/sec - AV VTI 30.28 cm - AV peak gradient 9.42 mmHg - AV mean gradient 4.56 mmHg - LVOT Vmax 1.08 m/sec - LVOT VTI 23.67 cm - LVOT peak gradient 4.73 mmHg - LVOT mean gradient 2.25 mmHg - JEFFREY Vmax 0.7 m/sec - Name Value Normal Range TR Vmax 2.5 m/sec - TR peak gradient 25 mmHg - RAP 15 mmHg - RVSP 40 mmHg - IVC diameter 2.4 cm - Name Value Normal Range PV Vmax 1.2 m/sec - PV peak gradient 5.82 mmHg -
[2017-09-29] MEDS: Metoprolol Tartrate TAB* 25 MG PO SCH (08:50)
[2017-09-29] MEDS: Ticagrelor* 90 MG TAB PO SCH (08:50)
[2017-09-29] MEDS: Cephalexin CAP* 500 MG PO SCH (08:50)
[2017-09-29] MEDS ORDERED: Aspirin Low Dose CHEW TAB* 81 MG PO SCH (09:00)
--- NOTE | 2017-09-29 09:59 | CATH ---
CC: Dr. Franklyn Johnston; Dr. Willy Shah, [place], [place]; Dr. Angelic Olmedo; Dr. Edwin Guillen; Dr. Franklyn Ward * CARDIAC CATHETERIZATION AND INTERVENTIONAL REPORT: DATE OF PROCEDURE: 09/28/17 INDICATION FOR PROCEDURE: If the patient presents with acute coronary syndrome with abnormal cardiac enzymes suggesting small non-ST elevation myocardial infarction. PROCEDURE PERFORMED: Coronary arteriography and primary stenting of the proximal portion of the first obtuse marginal branch utilizing a 2.75 x 20 mm long Rebel bare-metal stent postdilated to 2.85 to 2.9 mm with high pressure balloon inflations. PRIOR HISTORY: The patient was interviewed and examined on the floor of the hospital where the risks and benefits were explained. He understood them and wish to proceed. The patient has a reported history of prior stent placed to the circumflex in [place] at [facility] in 1997 with followup cardiac catheterization in 2004 demonstrating mild disease in the first obtuse marginal branch of the circumflex with less than 50% stenosis with separate ostia of the LAD and the circumflex and a small nondominant right coronary that had catheter damping or spasm in the proximal portion; the artery was deemed too small for consideration of any type of procedure. It was not addressed further doing the cardiac catheterization. The patient also has a history of renal insufficiency as well as liver cirrhosis and gets paracenteses performed. He had chronic renal insufficiency and he also had cirrhosis and was getting paracentesis periodically by Dr. Gerry Guillen. PROCEDURE: The patient was brought to the cardiovascular laboratory and a formal time-out was performed. The right radial artery had already been assessed for an approach and found to be acceptable under ultrasound. The patient was prepped and draped in sterile fashion. Both the right femoral artery area and the right radial artery area were prepped and draped in the sterile fashion. The right radial artery area was anesthetized with 1% lidocaine. The right radial artery area was cannulated and a 6-Sudanese glide sheath was placed. An ACT was checked and found to be less than 170. The patient received a 3000-unit bolus of heparin and the current heparin drip was stopped. Coronary arteriography was attempted utilizing a 5- Sudanese 4.0 curved TIG diagnostic catheter over a Stone wire. Of note, the transition from the right innominate artery into the aorta had tortuosity with difficult backward angulation to the ascending aorta despite multiple attempts with maneuvering the wire, and catheter stability could not be achieved. As such, the radial artery approach was aborted and the right femoral artery approach was attempted. The patient was anesthetized with 1% lidocaine to the right femoral artery region and the artery was cannulated and initially a 5-Sudanese introducer was placed. Coronary arteriography was performed using a 5-Sudanese 4 Elver left coronary catheter. Following this and seeing the critical stenosis in the obtuse marginal branch, and knowing that he had the renal insufficiency, the decision was made to proceed directly to intervention of the first obtuse marginal branch. The 5-Sudanese sheath was exchanged for a 6-Sudanese sheath. Guiding views were obtained utilizing a 6- Sudanese VL 3.5 curve guide catheter. It should be noted that there were separate ostiums for the LAD and the circumflex; the circumflex was cannulated with this catheter. The patient had received an additional 2500 units of heparin, and the ACT was checked and found to be in therapeutic range for intervention. The patient received 180 mg of Brilinta as well orally, and had already received aspirin therapy. An All-Star 0.014 guidewire was advanced down the circumflex into the obtuse marginal branch , and a 2.75 x 20 mm long Rebel bare-metal Monorail stent was deployed into the proximal first obtuse marginal branch. High pressure balloon inflations were then made with a 2.75 x 12 mm long NC Emerge balloon to 26 atmospheres. Following this, the artery was assessed for the result. Given the amount of contrast utilized with renal insufficiency and already knowing the right coronary artery was non-dominant and small in nature from prior cardiac catheterization, the decision was made not to cannulate it. At the end of the case, an injection was made into the right femoral artery sheath to assess eligibility to utilize closure device. It was found to be unacceptable for this , and, as such, the sheath was sutured in place. The right radial artery sheath was removed and hemostasis was obtained with a vas band. Of note - even prior to proceeding with the TIG catheter, the patient had had transient vasovagal reaction for which 1 mg of atropine was given with good result with caodaism of blood pressure and pulse along with a bolus of normal saline. Medication given during the case included the Brilinta 180 mg orally. A 1 mcg per minute nitroglycerin drip was started for mild anginal symptoms prior to stent placement. A nitroglycerin intracoronary bolus was also administrated. 0.5 mg of Versed for sedation was given. Once the stent was placed, the nitroglycerin drip was stopped. The total radiation exposure included 16.8 minutes of fluoro time. The air kerma radiation was 1492 mGy. The DAP radiation was 8638 microgray per meter squared. The total contrast used was 100 cc of Visipaque dye after wasted dye was accounted for. RESULTS: CORONARY ARTERIOGRAPHY: A. Left coronary artery: 1. Left anterior descending artery - with its own separate ostium, had eccentric 45% to 50% ostial narrowing in its worst view, appearing less in the orthogonal view. There was a mid 40% lesion and a distal 30% lesion. 2. Circumflex artery - a dominant vessel with its own separate ostium. The proximal portion of the circumflex had a mild 20% narrowing noted. The first obtuse marginal branch had a hazy dissected-appearing 95% to 99% stenosis with CARI- 3 flow. Past this point, the circumflex supplied multiple obtuse marginal branches ending in a left-sided PDA. There was a 35% mid lesion seen in the circumflex artery. B. Right coronary artery - not injected in order to decrease volume of dye usage with it already known to be a small sized non-dominant right coronary artery from prior catheterization. INTERVENTION INTO PROXIMAL PORTION OF FIRST OBTUSE MARGINAL BRANCH: Successful reduction of critically 95% to 99% hazy dissected lesion with primary stenting utilizing a 2.75 x 20 mm long Rebel bare-metal stent post dilated to 2.85 x 2.9 mm with CARI-3 flow with 0% residual stenosis at the point of obstruction. OVERALL ASSESSMENT: Successful intervention into critically stenosed bifurcating first obtuse marginal branch as described above. Bare-metal stent was utilized given the fact of the patient's history of liver cirrhosis with portal hypertension and wanting to use minimal amount of dual-antiplatelet therapy. This was discussed at length with multiple physicians including not only the patient's technical support agent , Dr. Shah, but also with Hematology/oncology, Dr. Guillen, as well as with a formal GI consult who made the same recommendations. The patient was also started on atorvastatin and will go home on 40 mg of atorvastatin today after discussion with Dr. Shah, and the patient will follow up with Dr. Shah to watch liver function study well. His right femoral sheath will be pulled manually in the intensive care unit once the ACT has dropped to appropriate range. He will be on fluid hydration for at least 10 hours post procedure in light of his renal insufficiency. Tomorrow morning, an echocardiogram will be performed to look at his overall LV function, particularly to address his recurrent vasovagal episodes that he seems to have to make sure there is no extrinsic compression by any peritoneal fluid on his heart that could exacerbate these episodes. [id number] #: [id number] #: [id number] [facility]
--- NOTE | 2017-09-29 10:33 | CATH ---
CC: Dr. Franklyn Johnston; Dr. [place], [place]; Dr. Angelic Olmedo; Dr. Edwin Guillen; Dr. Franklyn Ward CONTINUATION ADDENDUM: CARDIAC CATHETERIZATION AND INTERVENTIONAL REPORT: REASON FOR CARDIAC CATHETERIZATION: The patient with acute coronary syndrome and cardiac enzymes suggesting a non-ST elevation myocardial infarction. PROCEDURE: Coronary arteriography. He had chronic renal insufficiency and he also had cirrhosis and was getting paracentesis periodically by Dr. Gerry Guillen. The patient was brought to the cardiovascular laboratory and a formal time-out was performed. The right radial artery had already been assessed for an approach and found to be acceptable under ultrasound. The patient was prepped and draped in sterile fashion. Both the right femoral artery area and the right radial artery area were prepped and draped in the sterile fashion. The right radial artery area was anesthetized with 1% lidocaine. The right radial artery area was cannulated and a 6-Salvadorean glide sheath was placed. An ACT was checked and found to be less than 170. The patient received a 3000-unit bolus of heparin and the current heparin drip was stopped. Coronary arteriography was attempted utilizing a 5- Salvadorean 4.0 curved TIG diagnostic catheter over a Stone wire. Of note, the transition from the right innominate artery into the aorta had tortuosity with difficult backward angulation to the ascending aorta despite multiple attempts with maneuvering the wire, and catheter stability could not be achieved. As such, the radial artery approach was aborted and the right femoral artery approach was attempted. The patient was anesthetized with 1% lidocaine to the right femoral artery, and the artery was cannulated and initially a 5-Salvadorean introducer was placed. Coronary arteriography was performed using a 5-Salvadorean 4 Elver left coronary catheter. Following this and seeing the critical stenosis in the obtuse marginal branch, and knowing that he had the renal insufficiency, the decision was made to proceed directly to intervention of the first obtuse marginal branch. The 5- Salvadorean sheath was exchanged for a 6-Salvadorean sheath. Guiding views were obtained utilizing a 6- Salvadorean VL 3.5 curve guide catheter. It should be noted that there were separate ostiums for the LAD and the circumflex; the circumflex was cannulated with this catheter. The patient had received an additional 2500 units of heparin, and the ACT was checked and found to be in therapeutic range for intervention. The patient received 180 mg of Brilinta as well orally, and had already received aspirin therapy. An All-Star 0.014 guidewire was advanced down the circumflex into the obtuse marginal branch, and a 2.75 x 20 mm long Rebel bare-metal Monorail stent was deployed into the proximal first obtuse marginal branch. High pressure balloon inflations were then made with a 2.75 x 12 mm long NC Emerge balloon to 26 atmospheres. Following this, the artery was assessed for the result. At the end of the case, an injection was made into the right femoral artery sheath to assess eligibility to utilize closure device. It was found to be unacceptable for this, and, as such, the sheath was sutured in place. The right radial artery sheath was removed and hemostasis was obtained with a vas band. Of note - even prior to proceeding with the TIG catheter, the patient had had transient vasovagal reaction for which 1 mg of atropine was given with good result with catholic of blood pressure and pulse along with a bolus of normal saline. Medication given during the case included the Brilinta 180 mg. A 1 mcg per minute nitroglycerin drip was started after nitroglycerin intracoronary bolus. Transiently for the vasovagal effect, 1 mg atropine was given in addition to 0.5 mg of Versed. Once the stent was placed, the nitroglycerin drip was stopped. The total radiation exposure included 16.8 minutes of fluoro time. The air kerma radiation was 1492 mGy. The DAP radiation was 8638 microgray per meter squared. The total contrast used was 100 cc of Visipaque dye after wasted dye was accounted for. RESULTS: CORONARY ARTERIOGRAPHY: A. Left coronary artery: 1. Left anterior descending artery - with its own separate ostium, had eccentric 45% to 50% ostial narrowing in its worst view, appearing less in orthogonal view. There was a mid 40% lesion and a distal 30% lesion. 2. Circumflex artery - a dominant vessel with its own separate ostium. The proximal portion of the circumflex had a mild 20% narrowing noted. The first obtuse marginal branch had a hazy dissected-appearing 95% to 99% stenosis with CARI- 3 flow. Past this point, the circumflex supplied multiple obtuse marginal branches ending in a left-sided PDA. There was a 35% mid lesion seen in the circumflex artery. B. Right coronary artery - not injected in order to decrease volume of dye usage with already known to be a small sized non-dominant right coronary artery from prior catheterization. INTERVENTION INTO PROXIMAL PORTION OF FIRST OBTUSE MARGINAL BRANCH: Successful reduction of critically 95% to 99% hazy dissected lesion with primary stenting utilizing a 2.75 x 20 mm long Rebel bare-metal stent post dilated to 2.85 x 2.9 mm with CARI-3 flow with 0% residual stenosis at the point of obstruction. OVERALL ASSESSMENT: Successful intervention into critically stenosed bifurcating first obtuse marginal branch as described above. Bare-metal stent was utilized given the fact of the patient's history of liver cirrhosis with portal hypertension and wanting to use minimal amount of dual-antiplatelet therapy. This was discussed at length with multiple physicians including not only the patient's vice president of advertising, Dr. Shah, but also with Hematology/oncology, Dr. Guillen, as well as with a formal GI consult who made the same recommendations. The patient was also started on atorvastatin and will go home on 40 mg of atorvastatin today after discussion with Dr. Shah, and the patient will follow up with Dr. Shah to watch liver function study well. His right femoral sheath will be pulled manually in the intensive care unit once the ACT has dropped to appropriate range. He will be on fluid hydration for at least 10 hours post procedure in light of his renal insufficiency. Tomorrow morning, an echocardiogram will be performed to look at his overall LV function , particularly to address his recurrent vasovagal episodes that he seems to have to make sure there is no extrinsic compression by any peritoneal fluid on his heart that could exacerbate these episodes. [id number]/[facility] #: [id number] GALO
--- NOTE | 2017-09-29 12:01 | PN ---
Subjective Date of Service: 09/29/17 Interval History: Patient seen and examined at bedside. Denies fever, chills, shortness of breath , chest discomfort, N/V/D. Pt states that he has some mild lightheadedness when he got up and ambulated in the room this AM. Tele: Paced, rate 60's Family History: Unchanged from Admission Social History: Unchanged from Admission Past Medical History: Unchanged from Admission Objective Active Medications: Acetaminophen (Tylenol Tab*) 650 mg PO Q6H PRN Reason: PAIN Aspirin (Aspirin Low Dose Tab*) 81 mg PO DAILY [facility] Atorvastatin Calcium (Lipitor*) 40 mg PO 1700 IVANA Cephalexin HCl (Keflex Cap*) 500 mg PO BID IVANA Furosemide (Lasix Tab*) 40 mg PO 0800,1700 IVANA Metoprolol Tartrate (Lopressor Tab*) 25 mg PO 0900,2100 IVANA Morphine Sulfate (Morphine Inj (Syringe)*) 2 mg IV Q4H PRN Reason: PAIN - MILD Nitroglycerin (Nitroglycerin Tab 0.4 Mg*) 0.4 mg SL Q5M PRN Reason: ANGINA Spironolactone (Aldactone Tab*) 50 mg PO 1800 IVANA Ticagrelor (Brilinta*) 90 mg PO BID [facility] Vital Signs - 8 hr 09/29/17 09/29/17 09/29/17 04:00 04:30 05:00 Temperature 98.4 F Pulse Rate 76 81 82 Respiratory 16 18 14 Rate Blood Pressure 106/52 111/57 118/62 (mmHg) O2 Sat by Pulse 98 97 99 Oximetry 09/29/17 09/29/17 09/29/17 05:01 05:31 06:00 Temperature Pulse Rate 82 80 71 Respiratory 15 16 15 Rate Blood Pressure 115/66 (mmHg) O2 Sat by Pulse 98 100 98 Oximetry 09/29/17 09/29/17 09/29/17 06:12 06:30 07:00 Temperature Pulse Rate 78 76 76 Respiratory 18 22 15 Rate Blood Pressure 126/58 133/76 100/58 (mmHg) O2 Sat by Pulse 100 100 97 Oximetry 09/29/17 09/29/17 09/29/17 07:30 07:57 08:00 Temperature 98.2 F Pulse Rate 74 81 Respiratory 21 Rate Blood Pressure 102/54 (mmHg) O2 Sat by Pulse 99 98 Oximetry 09/29/17 09/29/17 09/29/17 08:01 09:00 10:00 Temperature Pulse Rate 82 89 78 Respiratory 21 21 18 Rate Blood Pressure 123/70 111/64 (mmHg) O2 Sat by Pulse 99 100 100 Oximetry 09/29/17 09/29/17 10:03 11:00 Temperature Pulse Rate 69 Respiratory 24 21 Rate Blood Pressure 97/60 109/60 (mmHg) O2 Sat by Pulse 100 Oximetry Oxygen Devices in Use Now: None Appearance: NAD, laying in bed Ears/Nose/Mouth/Throat: Mucous Membranes Moist Respiratory: Symmetrical Chest Expansion and Respiratory Effort, Clear to Auscultation Cardiovascular: NL Sounds; No Murmurs; No JVD, RRR Abdominal: NL Sounds; No Tenderness; No Distention - Abdomen large and soft Extremities: No Edema Skin: No Rash or Ulcers Neurological: Alert and Oriented x 3, NL Muscle Strength and Tone Lines/Tubes/Other Access: Clean, Dry and Intact Peripheral IV - site benign Nutrition: Taking PO's Result Diagrams: 09/29/17 05:50 09/29/17 05:50 Additional Lab and Data: Assess/Plan/Problems-Billing Assessment: Mr. Ashford is a 77 yo male with PMH significant for cryptogenic cirrhosis, CAD , liver failure, hx SVT, HLD, arthritis, BPH, bladder CA, and CKD who presented to the emergency room with complaints of chest discomfort. - Patient Problems (1) Chest pain Code(s): R07.9 - CHEST PAIN, UNSPECIFIED SNOMED Code(s): 32864693 Comment: - NSTEMI, S/P cardiac cath with stenting - Denies pain at this time - Trop 0.07, 0.08, 0.08, 0.11, 0.14, 0.21, 0.23 - Cardiology and Interventional cardiology consults, input appreciated - Bilateral LE venous doppler negative, suspect d-dimer may be elevated in setting of ACS - Continue metoprolol, atorvastain, brilinta and ASA (2) Cryptogenic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 liver Code(s): K74.69 - OTHER CIRRHOSIS OF LIVER SNOMED Code(s): 27926272 Comment: - GI consult, input appreciated - Resume Lasix and Spironolactone (3) Pacemaker Code(s): Z95.0 - PRESENCE OF CARDIAC PACEMAKER SNOMED Code(s): 945473515 Comment: - S/P battery replacement - Discontinue Keflex (4) CAD (coronary artery disease) Code(s): I25.10 - ATHSCL HEART DISEASE OF [place] CORONARY ARTERY W/O ANG PCTRS SNOMED Code(s): 74749316 Comment: - Continue ASA and metoprolol (5) HLD (hyperlipidemia) Code(s): E78.5 - HYPERLIPIDEMIA, UNSPECIFIED SNOMED Code(s): 55171751 Comment: - Cholesterol 182, LDL 124 - Continue atorvastain (6) CKD (chronic kidney disease) Code(s): N18.9 - CHRONIC KIDNEY DISEASE, UNSPECIFIED SNOMED Code(s): 085707156 Comment: - Stage 3-4 at baseline - Continue to monitor and limit nephrotoxic agents (7) BPH (benign prostatic hyperplasia) Code(s): N40.0 - BENIGN PROSTATIC HYPERPLASIA WITHOUT LOWER URINRY TRACT SYMP SNOMED Code(s): 594364761 (8) SALEEM (obstructive sleep apnea) Code(s): G47.33 - OBSTRUCTIVE SLEEP APNEA (ADULT) (PEDIATRIC) SNOMED Code(s): 04856781 Comment: - CPAP (9) DVT prophylaxis Code(s): GUM2406 - SNOMED Code(s): 341375758 Comment: - SCDs (10) Full code status Code(s): Z78.9 - OTHER SPECIFIED HEALTH STATUS SNOMED Code(s): 939798376 Status and Disposition: Inpatient. Stable for discharge to home later today, if able to ambulate.
--- NOTE | 2017-09-29 12:49 | PN ---
Subjective Date of Service: 09/29/17 - CC: arm pain (resolved) Interval History: No recurrence of chest pain. Mild OS dizziness/lightheadness. No myalgias. Medications Active Medications: Acetaminophen (Tylenol Tab*) 650 mg PO Q6H PRN PRN Reason: PAIN Last Admin: 09/27/17 00:59 Dose: 650 mg Aspirin (Aspirin Low Dose Tab*) 81 mg PO DAILY [facility] Last Admin: 09/29/17 08:50 Dose: 81 mg Atorvastatin Calcium (Lipitor*) 40 mg PO 1700 IVANA Furosemide (Lasix Tab*) 40 mg PO 0800,1700 [facility] Last Admin: 09/29/17 08:50 Dose: 40 mg Metoprolol Tartrate (Lopressor Tab*) 25 mg PO 0900,2100 [facility] Last Admin: 09/29/17 08:50 Dose: 25 mg Morphine Sulfate (Morphine Inj (Syringe)*) 2 mg IV Q4H PRN PRN Reason: PAIN - MILD Nitroglycerin (Nitroglycerin Tab 0.4 Mg*) 0.4 mg SL Q5M PRN PRN Reason: ANGINA Spironolactone (Aldactone Tab*) 50 mg PO 1800 [facility] Ticagrelor (Brilinta*) 90 mg PO BID [facility] Last Admin: 09/29/17 08:50 Dose: 90 mg Objective Vital Signs: Temp Pulse Resp BP Pulse Ox 98.4 F 69 21 109/60 100 09/29/17 12:00 09/29/17 11:00 09/29/17 11:00 09/29/17 11:00 09/29/17 11:00 Oxygen Devices in Use Now: None Appearance: Patient seated, appears comfortable. Eyes: No Scleral Icterus, PERRLA Ears/Nose/Mouth/Throat: Mucous Membranes Moist Neck: Trachea Midline, No Thyroid Enlargement, Masses Respiratory: Symmetrical Chest Expansion and Respiratory Effort, Clear to Auscultation Cardiovascular: RRR - fast. Abdominal: - - large, soft, non tender, active bowel sounds. Lymphatic: No Cervical Adenopathy Extremities: No Edema Skin: No Rash or Ulcers, - - pacemaker incision w/o infection, hematoma or ecchymosis. Neurological: Alert and Oriented x 3, NL Gait Lines/Tubes/Other Access: Clean, Dry and Intact Peripheral IV Nutrition: Taking PO's Laboratory Results: 09/29/17 05:50 09/29/17 05:50 APTT 87.6 seconds (26.0-36.3) H 09/28/17 05:00 Total Bilirubin 0.40 mg/dL (0.2-1.0) 09/29/17 05:50 AST 26 U/L (13-39) 09/29/17 05:50 ALT 18 U/L (7-52) 09/29/17 05:50 Alkaline Phosphatase 125 U/L (34-104) H 09/29/17 05:50 CK-MB (CK-2) 2.4 ng/mL (0.6-6.3) 09/27/17 08:09 Total Protein 5.6 g/dL (6.4-8.9) L 09/29/17 05:50 Albumin 2.5 g/dL (3.2-5.2) L 09/29/17 05:50 Globulin 3.1 g/dL (2-4) 09/29/17 05:50 Albumin/Globulin Ratio 0.8 (1-3) L 09/29/17 05:50 Triglycerides 66 mg/dL 09/27/17 08:09 Cholesterol 182 mg/dL 09/27/17 08:09 LDL Cholesterol 124 mg/dL 09/27/17 08:09 HDL Cholesterol 44.9 mg/dL 09/27/17 08:09 09/27/17 09/27/17 09/27/17 11:01 15:41 21:52 Troponin I 0.14 H* 0.21 H* 0.23 H* Diagnostic Imaging: ECHO 09/28/17 ([facility]) EF 60-65%, good valve function with trace to mild insufficiency. Catheterization 09/28/17- [facility]: LAD 30-50% occlusions. Cx Dominant, 90-95% OM lesion (culpret) to BMS, 30% plaque Cx. RCA not injected. EKG Data: Pacemaker: rate drop feature added today. Lower rate remains at 60 bpm. Assessment/Plan 77 yo male with known CAD, recent pacemaker generator change with anginal symptoms and mild bump in troponins. Cath revealed very tight OM lesion in dominant circuflex, s/p BMS. CAD: Continue metoprolol. Continue Brillinta and ASA. Continue statin for now (hx statin intolerance). Hypotension: Mild orthostasis, consider alternating lasix and aldactone for now. Compression stockings an option. Vagal dizzy/syncope: Rate drop programming added. Pacemaker incision: Healing well. Loose stool: ? beta paramjit vs. one off. Cirrhosis/RI via hospitalists, but both appear at baseline, improving BUN/Cr. Has appointments for groin and pacer wound checks. F/u with Dr. Nithya Hoang, regular furniture inspector.
[2017-09-29 15:36] VITALS: BP 96/66
[2017-09-29] MEDS ORDERED: Atorvastatin* 40 MG TAB PO SCH (17:00)
[2017-09-29] MEDS ORDERED: Spironolactone TAB* 25 MG PO SCH (18:00)
--- NOTE | 2017-09-30 20:19 | DS ---
CC: Franklyn Johnston MD; Angelic Olmedo MD; Dr. Devin Barriga, Cardiology, [place]; Dr. Patrick Joshua; Dr. Chrissy Solo* DISCHARGE SUMMARY: DATE OF ADMISSION: 09/26/17 DATE OF DISCHARGE: 09/29/17 ATTENDING PHYSICIAN: Maryjo Arriaga MD* (dictated by Shruti Downs NP). PRIMARY CARE PROVIDER: Dr. Franklyn Johnston. PRIMARY REAL ESTATE PORTFOLIO MANAGER: Dr. Devin Barriga. PRIMARY DIAGNOSES: 1. Non-ST elevated myocardial infarction. 2. Status post cardiac catheterization with bare-metal stenting to the first obtuse marginal branch. 3. Elevated d-dimer, suspect secondary to ACS. SECONDARY DIAGNOSES: 1. Cryptogenic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 the liver. 2. Pacemaker, status post recent battery replacement. 3. Coronary artery disease. 4. Hyperlipidemia. 5. Chronic kidney disease. 6. Benign prostatic hyperplasia. 7. Obstructive sleep apnea. CONSULTATIONS WHILE IN THE HOSPITAL: 1. Dr. Angelic Olmedo with Cardiology. 2. Dr. Patrick Joshua with Interventional Cardiology. 3. Dr. Margarita Singh with Gastroenterology. 4. Dr. Chrissy Solo with Hematology/Oncology. PROCEDURES WHILE IN THE HOSPITAL: Status post cardiac catheterization by Dr. Patrick Joshua on 09/28/17 resulting in a bare-metal stenting of first obtuse marginal branch. Please see his cardiac catheterization report for full details. STUDIES WHILE IN THE HOSPITAL: 1. Chest x-ray on 09/26/17. Radiologist impression: No evidence of acute intrathoracic disease. 2. Bilateral lower extremity venous Doppler ultrasound on 09/27/17. Radiologist impression: No right lower extremity DVT, no left lower extremity DVT. 3. Transthoracic echocardiogram on 09/29/17. Ceramic Chemist conclusion: Moderate concentric left ventricular hypertrophy observed. There is normal left ventricular systolic function. The estimated ejection fraction is 60% to 65%. There is abnormal ventricular septal wall motion consistent with right ventricular pacemaker. The assessment of diastolic function is nondiagnostic. The left atrium is mildly dilated. The pacemaker wire is visualized on the right atrium. There is a trace of aortic regurgitation, mild mitral regurgitation, mild tricuspid regurgitation. There is evidence of mild pulmonary hypertension. There is trace pulmonic regurgitation. Compared to report of prior study from 09/22/17, there is less peritoneal fluid noted. Doppler analysis on current study does not suggest any hemodynamic compromise. DISCHARGE MEDICATIONS: New home medications: 1. Atorvastatin 40 mg oral daily. 2. Metoprolol tartrate 25 mg oral twice daily. 3. Nitroglycerin 0.4 mg sublingual every 5 minutes as needed for angina. 4. Brilinta 90 mg oral twice daily. Continued home medications: Aspirin 81 mg oral daily. Changed home medications: 1. Furosemide 40 mg oral every other day alternating with spironolactone. 2. Spironolactone 50 mg oral every other day alternating with furosemide. The patient was instructed not to take both furosemide and spironolactone on the same day. Discontinued medications: Keflex. HISTORY OF PRESENT ILLNESS/HOSPITAL COURSE: Mr. Ashford is a 77-year-old male with past medical history significant for coronary artery disease, status post stenting 20 years ago, cryptogenic cirrhosis with frequent paracentesis managed by Dr. Guillen's office with liver failure, supraventricular tachycardia with complete heart block and pacemaker placed 10 years ago and recent generator change on 09/25/17, hyperlipidemia, arthritis, BPH, superficial bladder cancer and chronic kidney disease who Dr. Olmedo replaced his pacemaker generator on 09/25/17. He presented the next day after having a syncopal episode at home. The patient reported also having pain in both arms that felt like heaviness bilaterally in addition to chest discomfort in the middle of his chest when he would exert himself. When this continued, he called Dr. Olmedo's office who chelsey a troponin that was noted to be elevated at 0.08 and the patient was sent to the emergency room. While in the emergency room, the patient's chest discomfort had resolved. His second troponin was 0.07. He had an EKG showing a paced rhythm. His blood pressure was running systolically in the 90s to 120s. Hospitalists were asked to evaluate him for admission. While in the hospital, the patient's troponins were trended, reaching 0.23 the last time it was checked. He was seen in consultation by Dr. Angelic Olmedo, who felt that the patient should undergo a cardiac catheterization. The patient was then seen in consultation by Dr. Patrick Joshua, who proceeded to take the patient for cardiac catheterization on 09/28/17 and this resulted in bare-metal stenting to the patient's first diagonal obtuse marginal branch. He was chest pain free after his cardiac catheterization. He did have an episode of bradying down during recovery from the cardiac cath. He had his pacemaker interrogated and this was adjusted. His chronic kidney disease remained at baseline. He had mild hyponatremia with a sodium of 131. He had a lipid panel showing a total cholesterol of 182 and LDL of 124. He was mildly anemic. This appeared to be similar to his previous labs. He had initially been on a heparin drip, this was discontinued post-cath and he was started on Brilinta. He was also found to have an elevated d-dimer with negative bilateral lower extremity venous dopplers, he was unable to get a chest CTA due to his renal function. It is suspected that the elevated d-dimer was secondary to acute coronary syndrome. Mr. Ashford is stable for discharge to home today. Vital signs are as follows: Temperature 98.4, heart rate 95, respiratory rate 20, O2 sat 98% on room air, blood pressure 96/66. DISCHARGE PLAN: Mr. Asfhord will be discharged home. Activity as tolerated. He has been given cardiac cath preprinted instructions. He should be on a heart healthy diet. In regards to his non-St elevated [place], he has been placed on Brilinta, he should take 90 mg oral twice daily in addition to aspirin 81 mg oral daily. He has been started on atorvastatin 40 mg oral daily and metoprolol tartrate 25 mg oral twice daily. The patient has been given a prescription for nitroglycerin 0.4 mg tablet sublingual every 5 minutes as needed for angina. In regards to the patient's cirrhosis and ascites, it has been recommended that he take his diuretics alternating every other day, so he will take furosemide 40 mg twice daily alternating with spironolactone on the opposite days, he has been instructed to not take both on the same day. He has completed his course of Keflex post pacemaker generator replacement. The patient has been instructed to call his primary vault teller, Dr. Devin Barriga , in [place] to set up a followup appointment. He also has a followup appointment with Dr. Angelic Olmedo on 10/03/17 at 10 a.m. for a wound check for his pacemaker site in addition to an appointment with Dr. Patrick Joshua on at 1 p.m. for a wound check post cardiac catheterization. The patient also needs to have a followup appointment with his primary care provider. Dr. Johnston's office will call the patient with an appointment date and time and they have been instructed to call Dr. Johnston's office early next week if they have not heard from him. The patient had both right groin and right radial access. He has been instructed to monitor these sites for signs of infection or bleeding. The patient has been asked to return to the emergency room for any chest pain, shortness of breath. Points of discussion at follow-up: Please note that the patient has a history of statin intolerance and monitor him for any signs of statin intolerance. This is a summarized report of complex medical history and hospital stay. For further details, please see the entire medical record. TIME SPENT: Time for this discharge was 50 minutes, greater than half of that was spent with the patient and his discussing discharge plans and instructions. CONDITION ON DISCHARGE: Stable. Reviewed by PAPITO GALLOWAY 10/02/17 1856 [id number]/[facility] #: [id number] GALO
== END 2017-09-29 15:51 | disposition home or self-care (01) | DRG 249 ==
LOC: ED 18:44 → MEDTELE 21:50 → OBSVTOIN 09-27 09:46 → ICU 09-27 10:12
PROVIDERS: ADMIT Hospitalist; ATTEND Internal Medicine
PROC: 0JPT0PZ Removal of Cardiac Rhythm Related Device from Trunk Subcutaneous Tissue and Fascia, Open Approach (ICD-10-PCS; 2017-09-27)
PROC: 0JH606Z Insertion of Pacemaker, Dual Chamber into Chest Subcutaneous Tissue and Fascia, Open Approach (ICD-10-PCS; 2017-09-27)
PROC: B2111ZZ Fluoroscopy of Multiple Coronary Arteries using Low Osmolar Contrast (ICD-10-PCS; 2017-09-28)
PROC: 02703DZ Dilation of Coronary Artery, One Artery with Intraluminal Device, Percutaneous Approach (ICD-10-PCS; principal; 2017-09-28 07:30)
DX: I21.4 Non-ST elevation (NSTEMI) myocardial infarction (principal); I44.2 Atrioventricular block, complete; I27.20 Pulmonary hypertension, unspecified; K76.6 Portal hypertension; E87.1 Hypo-osmolality and hyponatremia; I08.3 Combined rheumatic disorders of mitral, aortic and tricuspid valves; R18.8 Other ascites; N18.3 Chronic kidney disease, stage 3 (moderate); R00.1 Bradycardia, unspecified; K74.69 Other cirrhosis of liver; E78.5 Hyperlipidemia, unspecified; I25.10 Atherosclerotic heart disease of native coronary artery without angina pectoris; Z95.0 Presence of cardiac pacemaker; N40.0 Benign prostatic hyperplasia without lower urinary tract symptoms; G47.33 Obstructive sleep apnea (adult) (pediatric); I12.9 Hypertensive chronic kidney disease with stage 1 through stage 4 chronic kidney disease, or unspecified chronic kidney disease; K21.9 Gastro-esophageal reflux disease without esophagitis; K58.9 Irritable bowel syndrome, unspecified; K31.89 Other diseases of stomach and duodenum; M19.90 Unspecified osteoarthritis, unspecified site; Z96.1 Presence of intraocular lens; I95.1 Orthostatic hypotension; Z98.42 Cataract extraction status, left eye; Z79.02 Long term (current) use of antithrombotics/antiplatelets; Z85.51 Personal history of malignant neoplasm of bladder; Z79.82 Long term (current) use of aspirin; Z88.8 Allergy status to other drugs, medicaments and biological substances; Z91.040 Latex allergy status; Z80.52 Family history of malignant neoplasm of bladder; Z80.0 Family history of malignant neoplasm of digestive organs; Z98.41 Cataract extraction status, right eye; Z90.49 Acquired absence of other specified parts of digestive tract; Z82.49 Family history of ischemic heart disease and other diseases of the circulatory system; Z87.891 Personal history of nicotine dependence; Z95.5 Presence of coronary angioplasty implant and graft
CPT/HCPCS: 36415; 71045; 80048; 80053; 80061; 82550; 82553; 82565; 83605; 84484; 84520; 85025; 85379; 85730; 93005; 93306; 93454; 93970; 99232; 99284; A9270-GY; C1725; C1769; C1876; C1887; G0378; J0461; J1644; J2250; J3010

== ENCOUNTER 2017-10-16 11:34 | Inpatient (IN) | payer MEDICARE ==
[2017-10-16] MEDS ORDERED: Pantoprazole IV* 40 MG IV ONE (12:11)
[2017-10-16 12:31] LABS: ABS Basophils 0.1 10^3/ul (0-0.2); ABS Eosinophils 0 10^3/ul (0-0.6); ABS Lymphocytes 0.9 10^3/ul (1.0-4.8); ABS Monocytes 0.6 10^3/ul (0-0.8); ABS Neutrophils 6.8 10^3/ul (1.5-7.7); ABS Nucleated RBC 0 10^3/ul; Eosinophil % 0.2 % (0-6); Hematocrit 26 % (42-52); Hemoglobin 8.4 g/dl (14.0-18.0); Lymphocyte % 10.6 % (25-47); Mean Corpuscular HGB Conc 33 g/dl (31-36); Mean Corpuscular Hemoglobin 29 pg (27-31); Mean Corpuscular Volume 87 fL (80-94); Mean Platelet Volume 9 um3 (7.4-10.4); Nucleated Red Blood Cells % 0.1; Platelet Count 330 10^3/ul (150-450); Red Blood Count 2.93 10^6/ul (4.0-5.4); Red Cell Distribution Width 18 % (10.5-15); White Blood Count 8.3 10^3/ul (3.5-10.8)
--- OUTSIDE RECORDS SUMMARY | 2017-10-16 12:31 | XMS REPORT ---
:1940 External Reference #:[id number] Author Organization [employer] [facility] Address [address] [address] Phone [phone] Care Team Providers Name Role Phone Franklyn Johnston MD Primary Care Physician Unavailable Payers Type Date Identification Numbers Payment Subscriber Provider Health Maintenance Effective: Policy Number: Medicare Rolly Jj Abdprisca [facility] ([facility] [place] 07/31/2016 [id number] Ppo Group Number: [id number] [address] [address] PayID: [id number] SWATI Marcus [id number] Health Maintenance Effective: Policy Number: Medicare Rolly Jj [facility] ([facility] – [place] 07/31/2013 [id number] Pp Dejon Expires: 07/30/2014 Group Number: [id number] [address] [address] Group Name: Expires 07/30/14 SWATI Marcus [id number] PayID: [id number] Medigap Part B Effective: 01/28/2010 Policy Number: [facility] Diya Jj Dejon [id number] Expires: 07/30/2013 PayID: [id number] [address] [address] SWATI Marcus [id number] Medigap Part B Effective: 12/29/2006 Policy Number: Medicare Diya Jj Dejon [id number] Expires: 07/30/2013 PayID: [id number] [address] [place] [address] Problems Date Description Provider Status Onset: 07/09/2013 Sprain of foot Bryan Dee M.D. 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 Active w unsp ang pctrs Onset: 10/03/2017 Cardiac pacemaker in situ Angelic Olmedo M.D. Active Family History Date Family Member(s) Problem(s) [...] Form Strength Qnty SIG Indications Ordering Provider Atorvastatin 09/29 Active Tablets 40mg 30tab 1 by mouth Angelic Calcium /2017 s every day Clarita Olmedo Metoprolol 09/29 Active Tablets 25mg 60tab 1 by mouth Angelic Tartrate s twice a day Clarita Olmedo Brilinta 09/29 Active Tablets 90mg 180ta 1 tab by mouth Angelic bs twice a day Clarita Olmedo Aspirin Ec Active 81mg daily Unknown Lo-Dose /0000 Nitroglycerin Active Tablets 0.4mg 1 SL prn Unknown /0000 Sub angina Lasix Active Tablets 40mg 1 by mouth Unknown /0000 every other day alternating with spironalcatone Spironolactone Active Tablets 50mg 1 tablet every Unknown /0000 other day alternating with Furosemide Hydrocodone 09/16 Hx Tablets 5-300mg 14tab 1 tab by mouth Jamilah Bitartrate/Acet s every 4 hours B. aminophen as needed pain [place], [place] [employer] [employer] Hydrocodone 09/16 Hx Tablets 5-300mg 14tab 1 tab by mouth Jamilah Bitartrate/Acet s every 4 hours B. aminophen as needed pain DARLENE Donaldson Zantac 03/01 Hx Tablets 300mg 90tab 1 tab by mouth K21.9 Miriam /2016 s every day MD Annmarie - every night 03/29 Lipitor 07/09 Hx Tablets 80mg 90tab 1 po qhs Krystle Ortez M.D. 03/29 Losartan 00/00 Hx Unknown Potassium /0000 - 06/27 Celebrex Hx 200 daily Unknown /0000 - 02/28 Losartan 00/00 Hx Tablets 100mg 1 by mouth Unknown Potassium /0000 every day Aldactone Hx Tablets 50mg 1 by mouth Unknown 0000 daily - 07/09 Midodrine HCL Hx Tablets 5mg 1 po tid Hesson, MD Franklyn - 07/09 Medications Administered in Office Medication Date Status Form Strength Qnty SIG Indications Ordering Provider Influenza,Unsp Administered Injection Unknown ecified 017 Immunizations CPT Code Status Date Vaccine Lot # [id number] Given 05/14/2014 Influenza Virus 3Yrs & Over Vital Signs Date Vital Result Comment 10/03/2017 Height 71 inches 5'11" Weight 220.00 lb with shoes Heart Rate 76 /min BP Systolic Sitting 98 mmHg Rue reg cuff BP Diastolic Sitting 64 mmHg Rue reg cuff Respiratory Rate 17 /min BMI (Body Mass Index) 30.7 kg/m2 Ejection Fraction 60-65% date 09/27/17 ECHO 09/21/2017 Height 71 inches 5'11" Weight 233.00 [...] Test Date Test Result H/L Range Note Basic Metabolic Panel 10/02/2017 Sodium 131 mmol/L Low 133-145 Potassium 4.6 mmol/L 3.5-5.0 Chloride 103 mmol/L 101-111 Co2 Carbon Dioxide 23 mmol/L 22-32 Anion Gap 5 mmol/L 2-11 Glucose 128 mg/dL High 70-100 Blood Urea Nitrogen 39 mg/dL High 6-24 Creatinine 2.00 mg/dL High 0.67-1.17 BUN/Creatinine Ratio 19.5 8-20 Calcium 8.1 mg/dL Low 8.6-10.3 Egfr Non- 32.7 >60 Egfr 42.1 >60 1 Basic Metabolic Panel 09/26/2017 Sodium 132 mmol/L Low 133-145 Potassium 5.5 mmol/L High 3.5-5.0 Chloride 103 mmol/L 101-111 Co2 Carbon Dioxide 25 mmol/L 22-32 Anion Gap 4 mmol/L 2-11 Glucose 183 mg/dL High 70-100 Blood Urea Nitrogen 36 mg/dL High 6-24 Creatinine 1.86 mg/dL High 0.67-1.17 BUN/Creatinine Ratio 19.4 8-20 Calcium 8.3 mg/dL Low 8.6-10.3 Egfr Non- 35.6 >60 Egfr 45.8 >60 2 Laboratory test finding 09/26/2017 B-Type Natriuretic Peptide BNP 54 pg/mL 3 Troponin-I (TnI) 0.08 ng/mL High <0.04 4 HIV 1/2 Ag & AB Eval 07/12/2017 HIV-1/-2 Screen, S Negative Negative 5 Laboratory test finding 07/12/2017 Miscellaneous Test See Comment 6 Hepatitis E IgM Antibody Negative Negative 7 Laboratory test finding 07/12/2017 Hepatitis E IgM Antibody Negative Negative 8 Laboratory test finding 07/12/2017 Hepatitis E IgM Antibody Negative Negative 9 Hepatitis E IgG Antibody Negative Negative 10 Laboratory test finding 07/12/2017 Hepatitis E IgM Negative Negative 11 Antibody Laboratory test finding 07/12/2017 Hepatitis E IgM Negative Negative 12 Antibody Laboratory test finding 07/12/2017 Hepatitis E [...] Negative Negative 20 Antibody Laboratory test finding 07/12/2017 Hepatitis E IgM Negative Negative 21 Antibody Laboratory test finding 07/12/2017 Hepatitis E IgM Negative Negative 22 Antibody Laboratory test finding 07/12/2017 Hepatitis E IgM Negative Negative 23 Antibody Laboratory test finding 07/12/2017 Hepatitis E IgM Negative Negative 24 Antibody Laboratory test finding 12/02/2016 Cytology Non-Assembly Adjuster SEE RESULT BELOW 25 Plasma Cell 12/02/2016 Plasma Cell Dis Res Abnormal Profliferative Disorder Summary Plasma Cell Prolif Specimen Bone Marrow Plasma Cell Prolif Dis Source Right PIC Plasma Cell Referral Reason See Comment 26 Plasma Cell Prolif Dis Method See Comment 27 Plasma Cell Dis Result Table See Comment 28 Plasma Cell Prolif Dis Results See Comment 29 Plasma Cell Dis Interpretation See Comment 30 Plasma Cell Dis Add Info See Comment 31 Plasma Cell Dis Disclaimer See Comment 32 Plasma Cell Dis Released By See Comment 33 B-Cell Lymphoma Fish 12/02/2016 FBLP Specimen Bone Marrow FBLP Source Right PIC FBLP Reason for Referral See Comment 34 FBLP Method See Comment 35 FBLP Result Summary Normal FBLP Result See Comment 36 FBLP Result Table See Comment 37 FBLP Interpretation See Comment 38 FBLP Additional Information See Comment 39 FBLP Released By See Comment 40 FBLP Disclaimer See Comment 41 Leukemia/Lymphoma Flow 12/02/2016 Path Interpretation 2-8 Marker TNP Path Interpret > 16 Marker TNP Path Interpret 9-15 Marker (SEE NOTE) 42 Laboratory test 12/02/2016 Surgical Pathology SEE RESULT BELOW 43 finding Laboratory test 11/04/2016 Ach Receptor Binding 0.00 nmol/L <=0.02 44 finding AB Comp Metabolic Panel 11/04/2016 Sodium 134 mmol/L [...] Egfr Non- 49.5 >60 Egfr 63.7 >60 45 CBC Auto Diff 11/04/2016 White Blood Count [...] 0-2 Nucleated Red Blood Cells % 0 Laboratory test finding 11/04/2016 Surgical Interface Order SEE RESULT BELOW 46 Laboratory test finding 09/27/2016 Surgical Pathology SEE RESULT BELOW 47 Laboratory test finding 09/27/2016 Cytology Non-Assembly Adjuster SEE RESULT BELOW 48 Laboratory test finding 05/28/2014 Fluid Crystals None Seen 49 Body Fluid C&S 05/28/2014 Body Fluid Cult Gram (SEE NOTE) 50 Stain 1 Because ethnic data is not always readily [...] 15-29 5 Kidney failure <15 (or dialysis) 2 Because ethnic data is not always readily [...] 15-29 5 Kidney failure <15 (or dialysis) 3 >100 to <200 pg/mL: likely compensated congestive heart failure (CHF) 200 to 400 pg/mL: likely moderate CHF >400 pg/mL: likely moderate to severe CHF [address] Moreno by [id number] at 1734 on 09/26/17. Results read back accurately. 5 Negative result does not rule out HIV infection. If acute HIV infection is suspected in a high-risk individual, submit plasma specimen for HIV-1 RNA quantification test (HIVDQ) and/or HIV-2 DNA/RNA test (FHV2Q). Test Performed by: [place] [address] 6 Test Result Flag Unit RefValue Strongyloides Ab, IgG, S Negative Negative No detectable levels of IgG antibodies to Strongyloides. Repeat testing in 1-2 weeks if clinically indicated. Test Performed by: [place] [address] 7 If clinical suspicion persists, submit new specimen for retesting in 1 to 2 weeks. Test Performed by: [place] [address] 8 If clinical suspicion persists, submit new specimen for retesting in 1 to 2 weeks. Test Performed by: [place] [address] 9 If clinical suspicion persists, submit new specimen for retesting in 1 to 2 weeks. Test Performed by: [place] [address] 10 Test Performed by: [place] [address] 11 If clinical suspicion persists, submit new specimen for retesting in 1 to 2 weeks. Test Performed by: [place] [address] 12 If clinical suspicion persists, submit new specimen for retesting in 1 to 2 weeks. Test Performed by: [place] [address] 13 If clinical suspicion persists, submit new specimen for retesting in 1 to 2 weeks. Test Performed by: [place] [address] 14 If clinical suspicion persists, submit new specimen for retesting in 1 to 2 weeks. Test Performed by: [place] [address] 15 If clinical suspicion persists, submit new specimen for retesting in 1 to 2 weeks. Test Performed by: [place] [address] 16 If clinical suspicion persists, submit new specimen for retesting in 1 to 2 weeks. Test Performed by: [facility] [place] [address] 17 If clinical suspicion persists, submit new specimen for retesting in 1 to 2 weeks. Test Performed by: [place] [address] 18 If clinical suspicion persists, submit new specimen for retesting in 1 to 2 weeks. Test Performed by: [facility] [place] [address] 19 If clinical suspicion persists, submit new specimen for retesting in 1 to 2 weeks. Test Performed by: [facility] [place] [address] 20 If clinical suspicion persists, submit new specimen for retesting in 1 to 2 weeks. Test Performed by: [place] [address] 21 If clinical suspicion persists, submit new specimen for retesting in 1 to 2 weeks. Test Performed by: [place] [address] 22 If clinical suspicion persists, submit new specimen for retesting in 1 to 2 weeks. Test Performed by: [facility] [place] [address] 23 If clinical suspicion persists, submit new specimen for retesting in 1 to 2 weeks. Test Performed by: [place] [address] 24 If clinical suspicion persists, submit new specimen for retesting in 1 to 2 weeks. Test Performed by: [place] [address] 25 SEE RESULT BELOW Name: DIYA ASHFORD : [address]: Timmy Montoya MD Acct: [id number] Unit: [id number] AGE: 76 Location: Re12/02/16 SEX: M Status: REG REF SPEC: [id number] BRAD: 12/02/16 [facility] DR: Timmy Montoya MD REQ: [id number] RECD: 12/02/16 STATUS: TUNDE SALINAS DR: Isaac [...] performed at Main Lab DEPARTMENT OF PATHOLOGY, [address] [place] [address] Favian Templeton M.D. Director [facility] # [id number] 26 RESULT: Monoclonal gammopathy, Hyperlipidemia, unspecified 27 Locus and probes [Strategy;#Nuclei;Class] 1p36.3(TP73),1q22 [COPY#;50;LDT] 8q24(5'MYC,3'MYC) [BAP;50;ASR] 11q13(CCND1-XT),14q32(IGH-XT) [DFISH;50;ASR] Probe strategies include: DFISH=dual color, double fusion; BAP=break-apart probe; COPY#=region gain and loss. 28 Abnormality Name Result # Abn Total Cells t(11;14) CCND1-XT/IGH-XT Abnormal 6 9 fusion +11(CCND1-XTx3) Normal 0 9 29 RESULT: nuc simon(CCND1-XT,IGH-XT)x3(CCND1-XT con IGH-XTx2) 30 The result is abnormal and indicates a [...] recommended. Additional cytogenetic studies are reported separately. 31 Previous Studies DATE SPECIMEN RESULT 01/26/2015 Marrow Plasma cell FISH abnormal 32 Applicable to Analyte Specific Reagent (ASR) and Laboratory Developed Tests (LDT). This test was developed and its performance characteristics determined by [facility] in a manner consistent with CLIA requirements. It has not been cleared or approved by the U.S. Food and Drug Administration. This FISH test does not rule out other chromosome abnormalities. 33 RESULT: Della Bell D.O. Test Performed by: [facility] - [address] [address] 34 RESULT: Monoclonal gammopathy, Hyperlipidemia, unspecified 35 Locus and probes [Strategy;#Nuclei;Class] 3q27(3'BCL6,5'BCL6) [BAP;200;ASR] 8q24(5'MYC,3'MYC) [BAP;200;ASR] 11q13(CCND1-XT),14q32(IGH-XT) [DFISH;500;ASR] 17p13(TP53),17CEN(D17Z1) [COPY#;200;ASR] 18q21(5'MALT1,3'MALT1) [BAP;200;ASR] 18q21(5'BCL2,3'BCL2) [BAP;200;ASR] Probe strategies include: DFISH=dual color, double fusion; BAP=break-apart probe; COPY#=region gain and loss. 36 RESULT: Interphase FISH is normal for all loci studied. 37 Abnormality Name Result %Abn Cutoff (%) 8q24.1(MYC sep) Normal <6.5% -17p13.1(TP53x1,J28D9v7) Normal <9.5% -17(TP53,D17Z1)x1 Normal <5.5% 18q21(MALT1 sep) Normal <3.5% 18q21(BCL2 sep) Normal <5.5% 3q27(BCL6 sep) Normal <3.5% t(11;14) CCND1-XT/IGH-XT fusion Normal <0.6% 38 This result is within normal limits for the B-cell lymphoma FISH panel. A normal FISH result does not exclude the presence of lymphoma in the bone marrow. Clinical and pathologic correlation is suggested. Additional cytogenetic studies are reported separately. 39 Previous Studies DATE SPECIMEN RESULT 01/26/2015 Marrow Plasma cell FISH abnormal 40 RESULT: Franklyn Pete M.D., Ph.D. Test Performed by: [address] [address] 41 Applicable to Analyte Specific Reagent (ASR) and Laboratory Developed Tests (LDT). This test was developed and its performance characteristics determined by [facility] in a manner consistent with CLIA requirements. It has not been cleared or approved by the U.S. Food and Drug Administration. This FISH test does not rule out other chromosome abnormalities. 42 FINAL DIAGNOSIS: Specimen Source: Right posterior iliac crest bone marrow Flow cytometry immunophenotypic analysis: Interpretative data: Lambda light chain restricted, CD19 positive, CD10 negative B-cell population detected (4% of WBCs, 19% of gated lymphocytes). Section light chain restricted plasma cells, (less than [...] MD 12/05/16 1452 Technical component performed by: [place] [address] General Ii Farmworker: Jamie Porter II, MD, PhD. 43 SEE RESULT BELOW Name: DIYA ASHFORD : [address]: Timmy Montoya MD Acct: [id number] Unit: [id number] AGE: 76 Location: Re12/02/16 SEX: M Status: REG REF SPEC: [id number] BRAD: 12/02/16-[address]: Timmy Montoya MD REQ: [id number] RECD: 12/02/16 STATUS: TUNDE SALINAS DR: Ari Salazar MD _ ORDERED: Decal, LEVEL 4/2, IMMUNO-FIRST, IMMUNO-ADDL/2, SPEC ST NON-ORG/2 Plasma cell disease has been performed at [place], [place]. The testing reveals: Specimen: Bone marrow. [...] pathologic correlation is recommended. Test Performed by: [facility] - [address] [address] CONTINUED ON NEXT PAGE * ML=Testing performed at [facility] DEPARTMENT OF PATHOLOGY, [address] [place] [address] Favian Templeton M.D. Director JAIMEWILLIAMS # [id number] RUN DATE: 12/14/16 [facility] LAB LIVE PAGE 2 Patient: DIYA ASHFORD [id number] (Continued) ADDENDUM (Continued) Addendum Signed (signature on file) Sunita Landa MD 1043 B-cell lymphoma has been performed at [facility], [place], [place]. The testing reveals: Specimen: Bone marrow. Method: Locus and probes [Strategy;#Nuclei;Class] 3q27(3'BCL6,5'BCL6) [BAP;200;ASR] 8q24(5'MYC,3'MYC) [BAP;200;ASR] 11q13(CCND1-XT),14q32(IGH-XT) [DFISH;500;ASR] 17p13(TP53),17CEN(D17Z1) [COPY#;200;ASR] 18q21(5'MALT1,3'MALT1) [BAP;200;ASR] 18q21(5'BCL2,3'BCL2) [BAP;200;ASR] Probe strategies include: DFISH=dual color, double fusion; BAP=break-apart probe; COPY#=region gain and loss. Result: Interphase FISH is normal for all loci studied. Result Summary: Normal Result Table: Abnormality Name Result %Abn Cutoff (%) 8q24.1(MYC sep) Normal <6.5% -17p13.1(TP53x1,F82F1y5) Normal <9.5% -17(TP53,D17Z1)x1 Normal <5.5% 18q21(MALT1 sep) [...] performed at Main Lab DEPARTMENT OF PATHOLOGY, [address] [place] [address] Favian Templeton M.D. Director JANETH # [id number] RUN DATE: 12/14/16 [facility] LAB LIVE PAGE 3 Patient: DIYA ASHFORD Анна [id number] (Continued) ADDENDUM (Continued) Additional cytogenetic studies are reported separately. Test Performed by: [facility] - [address] [address] Addendum Signed (signature on file) Favian Templeton [...] performed at Main Lab DEPARTMENT OF PATHOLOGY, [address] [place] [address] Favian Templeton M.D. Director [facility] # [id number] RUN DATE: 12/14/16 [facility] LAB LIVE PAGE 4 Patient: DIYA ASHFORD Анна [id number] (Continued) SPECIAL STUDIES (Continued) SPECIAL STUDIES Flow cytometry has been performed at [facility], [place], [place]. The testing reveals: FINAL DIAGNOSIS: Specimen Source: Right posterior iliac crest bone marrow Flow cytometry immunophenotypic analysis: Interpretative data: Lambda light chain restricted, CD19 positive, CD10 negative B-cell population detected (4% of WBCs, 19% of gated lymphocytes). Section light chain restricted plasma cells, (less than [...] MD 12/05/16 1452 Technical component performed by: [address] [address] General Ii Farmworker: Jamie Porter II, MD, PhD. CONTINUED ON NEXT PAGE * ML=Testing performed at Main Lab DEPARTMENT OF PATHOLOGY, [address] [place] [address] Favian Templeton M.D. Director CLAZ # [id number] RUN DATE: 12/14/16 [facility] LAB LIVE PAGE 5 Patient: DIYA ASHFORD [id number] (Continued) PRE-OPERATIVE DIAGNOSIS (Continued) PRE-OPERATIVE DIAGNOSIS D47.2 [...] performed at Main Lab DEPARTMENT OF PATHOLOGY, [address] [place] [address] Favian Templeton M.D. Director JANETH # [id number] RUN DATE: 12/14/16 [facility] LAB LIVE PAGE 6 Patient: DIYA ASHFORD [id number] (Continued) MICROSCOPIC DESCRIPTION (Continued) Signed (signature on file) Favian Templeton MD 1547 END OF REPORT * ML=Testing performed at [facility] Lab DEPARTMENT OF PATHOLOGY, [address] [place] [address] Favian Templeton M.D. Director [facility] # [id number] 44 ADDITIONAL INFORMATION This test was developed and its performance characteristics determined by [facility] in a manner consistent with CLIA requirements. This test has not been cleared or approved by the U.S. Food and Drug Administration. Test Performed by: [address] [address] 45 Because ethnic data is not always readily [...] 15-29 5 Kidney failure <15 (or dialysis) 46 SEE RESULT BELOW Name: DIYA ASHFORD : [address]: Ari Salazar MD Acct: [id number] Unit: [id number] AGE: 76 Location: [facility] Re11/04/16 SEX: M Status: REG REF SPEC: [id number] BRAD: 11/04/16-4870 [facility] DR: Isaac Ruiz MD REQ: [id number] RECD: 11/04/16883 STATUS: TUNDE SALINAS DR: Franklyn Guillen MD [...] performed at Main Lab DEPARTMENT OF PATHOLOGY, [address] [place] [address] Favian Templeton M.D. Director [facility] # [id number] 47 SEE RESULT BELOW Name: DIYA ASHFORD : [address]: Gonzalo Nunez MD Acct: [id number] Unit: [id number] AGE: 76 Location: [facility] 332-01 Re09/27/16 Dis: 09/28/16 SEX: M Status: DIS Kiel SPEC: [id number] BRAD: 09/27/16- SUBM DR: Gonzalo Nunez MD REQ: [id number] RECD: 09/27/16 STATUS: SOUT _ ORDERED: TRICHROME [...] and the wall thickness averages 0.1 cm. Certified Medication Aide sections, one cassette. 2. The specimen is received in formalin labeled, Liver Biopsy, and consists of a 1.5 x 0.1 CONTINUED ON NEXT PAGE * ML=Testing performed at [facility] Lab DEPARTMENT OF PATHOLOGY, [address] [place] [address] Favian Templeton M.D. Director JANETH # [id number] RUN DATE: 09/29/16 [facility] LAB LIVE PAGE 2 Patient: DIYA ASHFORD [id number] (Continued) GROSS DESCRIPTION (Continued) GROSS DESCRIPTION (Continued) cm patten soft tissue core admixed with scant red-brown blood clot. Entirely submitted, one cassette. Signed (signature on file) Favian Templeton MD 1647 END OF REPORT * ML=Testing performed at Main Lab DEPARTMENT OF PATHOLOGY, [address] [place] [address] Favian Templeton M.D. Director JANETH # [id number] 48 SEE RESULT BELOW Name: DIYA ASHFORD Анна : [address]: Gonzalo Nunez MD Acct: [id number] Unit: [id number] AGE: 76 Location: [facility] 332-01 Re09/27/16 SEX: M Status: ADM Kiel SPEC: [id number] BRAD: 09/27/16-[address]: Gonzalo Nunez MD REQ: [id number] RECD: 09/27/16 STATUS: SOUT _ ORDERED: THIN PREP NON G FINAL DIAGNOSIS Peritoneal fluid: -- Negative for malignant cells. -- Mixed lymphoid elements, macrophages and scattered mesothelial elements only. 1. PERITONEAL - PERITONEAL FLUID GROSS DESCRIPTION 35 mls of cloudy yellow/green fluid. Signed (signature on file) Favian Templeton MD 1327 END OF REPORT * ML=Testing performed at Main Lab DEPARTMENT OF PATHOLOGY, [address] [place] [address] Favian Templeton M.D. Director [facility] # [id number] 49 Synovial (Joint) Fluid 50 RUN DATE: 06/01/14 [facility] LAB LIVE PAGE 1 RUN TIME: [address] [place] [address] Specimen Inquiry Name: DIYA ASHFORD : [address]: Dominic Jensen MD Acct: [id number] Unit: [id number] AGE: 74 Location: [facility] Re05/28/14 SEX: M Status: REG REF SPEC: [id number] BRAD: 05/28/14 [facility] DR: Dominic Jensen MD REQ: [id number] RECD: 05/28/14 STATUS: COMP _ SOURCE: JOINT FLUI SPDESC:KNEE LEFT ORDERED: BF Cult/GS Procedure Result Verified Site Body Fluid Gram Stain Final 05/28/14- 1055 ML 4+ Neutrophils No Organisms Seen BY CENTRIFUGED SMEAR Body Fluid Culture Final 06/01/14- 0815 ML No Growth Day 4 END OF REPORT * ML=Testing performed at Main Lab DEPARTMENT OF PATHOLOGY, [address] [place] [address] Favian Templeton M.D. Director [facility] # [id number] Procedures Date CPT Code Description Status 10/03/2017 43455 EKG Tracing & Interpretation Completed 09/24/2017 70850 Interrogation Device Eval In Person W/ Completed Analysis,Single,Dual,Mul 09/22/2017 27473 ECHO Transthorasic Realtime 2D W Doppler & Color Completed Flow [facility] 02/23/2017 67835 ECHO Transthorasic Realtime 2D W Doppler & Color Completed Flow Hosp 11/04/2016 51416 Ultrasound Guidance For Vascular Access Completed 11/04/2016 42876 Transcatheter Biopsy Radiology Completed 11/04/2016 61329 Venography Liver W/Hemodynamic Evaluation Completed 11/04/2016 53848 Transcatheter Biopsy Completed 11/04/2016 04359 Catheter Placement Venous Second Order Branch Completed 09/27/2016 53182 Laparoscopy Cholecystectomy Completed 09/27/2016 97797 Laparoscopy Cholecystectomy Completed 09/27/2016 75011 Biopsy Liver W/Other Major Procedure Completed 05/28/2014 82646 Rad Exam; Knee, Ap&L Completed 05/28/2014 91168 Rad Exam; Knee, Ap&L Completed 05/28/2014 04956 Rad Exam; Pelvis Completed 02/03/2012 86473 Rad Exam; Foot Comp Completed Encounters Type Date Location Provider CPT E/M Dx Office Visit 09/24/2017 3:30p [facility] [place] [address] R55 [facility] FACC E87.70 Z95.0 Office Visit 09/23/2017 12:32p [facility] [place] [address] R55 FACC Z95.0 Office Visit 09/22/2017 12:34p [facility] [place] [address] R55 FACC Z95.0 Office Visit 08/14/2017 2:40p [facility] Tommy Wei, 57652 R18.8 Infectious Diseases M.D. Office Visit 07/10/2017 3:40p [facility] Tommy Wei, 47923 K73.9 Infectious Diseases M.D. R18.8 Office Visit 03/30/2017 9:45a [facility] [place] [address] G47.33 [facility] Office Visit 09/27/2016 2:49p [facility], Shruti 76271 K70.31 Hospitalists DARLENE Shields G47.33 I10 Z90.49 Office Visit 08/10/2016 1:30p [facility] [place], [address] K80.20 [facility] FACS Office Visit 03/01/2016 9:45a [facility] [place] [address] G47.33 [facility] K21.9 E66.01 Office Visit 07/07/2014 9:15a [facility] M.D. 51569 724.4 C.M.A. Office Visit 06/30/2014 8:45a [facility] [place] [address] 327.23 [facility] 719.46 Office Visit 06/11/2014 9:15a [facility] M.D. 48508 715.16 C.M.A. Office Visit 05/28/2014 8:00a [facility] M.D. 82135 715.16 C.M.A. Office Visit 03/05/2012 11:15a [facility] [place], 85399 845.10 C.Harry Epstein. Office Visit 02/10/2012 8:15a [facility] [place], 56966 729.5 C.Harry Epstein. Office Visit 02/03/2012 11:30a [facility] [place], 69650 729.5 C.Harry Epstein. Plan of Care Future Appointment(s):10/17/2017 11:00 am - Angelic Olmedo M.D. at [facility]10/10/2017 9:30 am - Angelic Olmedo M.D. at [facility]10/04/2017 1:20 pm - Patrick Joshua M.D., [facility] at [facility]/30/2018 9:00 am - Miriam Anguiano MD at [facility]10/03/2017 - Angelic Olmedo M.D.Z95.0 Presence of cardiac pacemakerComments:Your incision looks great.Follow up:PRNI25.119 Athscl heart disease of moapa cor art w unsp ang pctrsNew Orders:Stress Test, Pharmacologic NuclearStress Test, Treadmill, No EmtwasrV05.60 Unspecified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 gwfegS58.9 Chronic kidney disease, unspecifiedComments:Continue current medications.D64.9 Anemia, unspecifiedComments:Hematocrit went from 41 to 31 ( June to September).Discuss with Dr. Guillen, we can follow up on blood thinner adjustments if needed.
--- OUTSIDE RECORDS SUMMARY | 2017-10-16 12:31 | XMS REPORT ---
:1940 External Reference #:[id number] Author Organization [facility] Address [address] [address] Phone [phone] Care Team Providers Name Role Phone Franklyn Johnston MD Primary Care Physician Unavailable Payers Type Date Identification Numbers Payment Subscriber Provider Health Maintenance Effective: Policy Number: Medicare Rolly Jj Abdprisca [facility] ([facility] 07/31/2016 [id number] Ppo Group Number: [id number] [address] [address] PayID: [id number] SWATI Marcus [address] Health Maintenance Effective: Policy Number: Medicare Rolly Jj [facility] ([facility] 07/31/2013 [id number] Pp Dejon Expires: 07/30/2014 Group Number: [id number] [address] [address] Group Name: Expires 07/30/14 SWATI Marcus [address] PayID: [id number] Medigap Part B Effective: 01/28/2010 Policy Number: [facility] Diya Jj Dejon [id number] Expires: 07/30/2013 PayID: [id number] [address] [address] SWATI Marcus [address] Medigap Part B Effective: 12/29/2006 Policy Number: Medicare Diya Jj Dejon [id number] Expires: 07/30/2013 PayID: [id number] [address] [place] [address] Problems Date Description Provider Status Onset: 07/09/2013 Sprain of foot Bryan Dee M.D. Active Onset: 06/30/2014 Obstructive sleep apnea syndrome Miriam Anguiano MD Active Onset: 03/01/2016 Gastroesophageal reflux disease Miriam Anguiano MD Active Onset: 03/01/2016 Morbid obesity Miriam Anguiano MD Active Onset: 10/04/2017 Chronic kidney disease stage 3 Patrick Joshua M.D., [facility], Active [facility] Onset: 10/04/2017 Encounter for planned Patrick Joshua M.D., [facility], Active postprocedural wound closure [facility] Onset: 10/04/2017 Acute subendocardial infarction Patrick Joshua M.D., [facility], Active [facility] Onset: 10/03/2017 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 Active art w unsp ang pctrs Onset: 10/03/2017 Cardiac [...] 40mg 30tab 1 by mouth Angelic Calcium s every day Clarita Olmedo Metoprolol 09/29 Active Tablets 25mg 60tab 1 by mouth Angelic Tartrate s twice a day Clarita Olmedo Brilinta 09/29 Active Tablets 90mg 180ta 1 tab by mouth Angelic /2017 bs twice a day Clarita Olmedo Aspirin Ec Active 81mg daily Unknown Lo-Dose /0000 Nitroglycerin Active Tablets 0.4mg 1 SL prn Unknown /0000 Sub angina Lasix Active Tablets 40mg 1 by mouth Unknown /0000 every other day alternating with spironalcatone Spironolactone 00/00 Active Tablets 50mg 1 tablet every Unknown /0000 other day alternating with Furosemide Hydrocodone 09/16 Hx Tablets 5-300mg 14tab 1 tab by mouth Jamilah Bitartrate/Acet s every 4 hours B. aminophen as needed pain Eckenrode, SECTION WEAVER Hydrocodone 09/16 Hx Tablets 5-300mg 14tab 1 tab by mouth Jamilah Bitartrate/Acet s every 4 hours B. aminophen as needed pain Eckenrode, SECTION WEAVER Zantac 03/01 Hx Tablets 300mg 90tab 1 tab by mouth K21.9 Miriam s every day MD Annmarie - every night 03/29 Lipitor 07/09 Hx Tablets 80mg 90tab 1 po qhs Bryan /2012 Krystle Ortez M.D. 03/29 Losartan 00/ Hx Unknown Potassium /0000 - 06/27 Celebrex 00/ Hx 200 daily Unknown /0000 - 02/28 Losartan Hx Tablets 100mg 1 by mouth Unknown Potassium /0000 every day Aldactone Hx Tablets 50mg 1 by mouth Unknown /0000 daily - 07/09 Midodrine HCL 00 Hx Tablets 5mg 1 po tid Hesson, /0000 MD Franklyn - 07/09 Medications Administered in Office Medication Date Status Form Strength Qnty SIG Indications Ordering Provider Influenza,Unsp Administered Injection Unknown ecified 017 Immunizations CPT Code Status Date Vaccine Lot # [id number] Given 05/14/2014 Influenza Virus 3Yrs & Over Vital Signs Date Vital Result Comment 10/04/2017 Height 71 inches 5'11" Weight 221.00 lb w/shoes Heart Rate 74 /min 82 standing BP Systolic 98 mmHg BP Diastolic 52 mmHg BP Systolic Sitting 94 mmHg LA reg cuff BP Diastolic Sitting 56 mmHg LA reg cuff BP Systolic Standing 88 mmHg LA reg cuff BP Diastolic Standing 52 mmHg LA reg cuff BMI (Body Mass Index) 30.8 kg/m2 Ejection Fraction 60-65% Echo 09/22/17 10/03/2017 Height 71 inches 5'11" Weight 220.00 [...] Result H/L Range Note Basic Metabolic Panel 10/04/2017 Sodium 132 mmol/L Low 133-145 Potassium 4.6 mmol/L 3.5-5.0 Chloride 104 mmol/L 101-111 Co2 Carbon Dioxide 23 mmol/L 22-32 Anion Gap 5 mmol/L 2-11 Glucose 124 mg/dL High 70-100 Blood Urea Nitrogen 40 mg/dL High 6-24 Creatinine 2.01 mg/dL High 0.67-1.17 BUN/Creatinine Ratio 19.9 8-20 Calcium 7.8 mg/dL Low 8.6-10.3 Egfr Non- 32.5 >60 Egfr 41.9 >60 1 CBC Auto Diff 10/04/2017 White Blood Count 4.1 10^3/uL 3.5-10.8 Red Blood Count 3.60 10^6/uL Low 4.0-5.4 Hemoglobin 10.1 g/dL Low 14.0-18.0 Hematocrit 31 % Low 42-52 Mean Corpuscular Volume 86 fL 80-94 Mean Corpuscular Hemoglobin 28 pg 27-31 Mean Corpuscular HGB Conc 33 g/dL 31-36 Red Cell Distribution Width 18 % High 10.5-15 Platelet Count 214 10^3/uL 150-450 Mean Platelet Volume 9 um3 7.4-10.4 Abs Neutrophils 3.1 10^3/uL 1.5-7.7 Abs Lymphocytes 0.5 10^3/uL Low 1.0-4.8 Abs Monocytes 0.4 10^3/uL 0-0.8 Abs Eosinophils 0.1 10^3/uL 0-0.6 Abs Basophils 0 10^3/uL 0-0.2 Abs Nucleated RBC 0 10^3/uL Granulocyte % 75.5 % 38-83 Lymphocyte % 13.1 % Low 25-47 Monocyte % 9.0 % High 0-7 Eosinophil % 1.4 % 0-6 Basophil % 1.0 % 0-2 Nucleated Red Blood Cells % 0 Basic Metabolic Panel 10/02/2017 Sodium 131 mmol/L Low 133-145 Potassium 4.6 mmol/L 3.5-5.0 Chloride 103 mmol/L 101-111 Co2 Carbon Dioxide 23 mmol/L 22-32 Anion Gap 5 mmol/L 2-11 Glucose 128 mg/dL High 70-100 Blood Urea Nitrogen 39 mg/dL High 6-24 Creatinine 2.00 mg/dL High 0.67-1.17 BUN/Creatinine Ratio 19.5 8-20 Calcium 8.1 mg/dL Low 8.6-10.3 Egfr Non- 32.7 >60 Egfr 42.1 >60 2 Basic Metabolic Panel 09/26/2017 Sodium 132 mmol/L Low 133-145 Potassium 5.5 mmol/L High 3.5-5.0 Chloride 103 mmol/L 101-111 Co2 Carbon Dioxide 25 mmol/L 22-32 Anion Gap 4 mmol/L 2-11 Glucose 183 mg/dL High 70-100 Blood Urea Nitrogen 36 mg/dL High 6-24 Creatinine 1.86 mg/dL High 0.67-1.17 BUN/Creatinine Ratio 19.4 8-20 Calcium 8.3 mg/dL Low 8.6-10.3 Egfr Non- 35.6 >60 Egfr 45.8 >60 3 Laboratory test finding 09/26/2017 B-Type Natriuretic Peptide BNP 54 pg/mL 4 Troponin-I (TnI) 0.08 ng/mL High <0.04 5 HIV 1/2 Ag & AB Eval 07/12/2017 HIV-1/-2 Screen, S Negative Negative 6 Laboratory test finding 07/12/2017 Miscellaneous Test See Comment 7 Hepatitis E IgM Antibody Negative Negative 8 Laboratory test finding 07/12/2017 Hepatitis E IgM Antibody Negative Negative 9 Hepatitis E IgG Antibody Negative Negative 10 Laboratory test 07/12/2017 Hepatitis E IgM Negative Negative 11 finding Antibody Laboratory test 07/12/2017 Hepatitis E IgM Negative Negative 12 finding Antibody Laboratory test 07/12/2017 Hepatitis E IgM Negative Negative 13 finding Antibody Laboratory test 07/12/2017 Hepatitis E IgM Negative Negative 14 finding Antibody Laboratory test 07/12/2017 Hepatitis E IgM Negative Negative 15 finding Antibody Laboratory test 07/12/2017 Hepatitis E IgM Negative Negative 16 finding Antibody Laboratory test 07/12/2017 Hepatitis E IgM Negative Negative 17 finding Antibody Laboratory test 07/12/2017 Hepatitis E IgM Negative Negative 18 finding Antibody Laboratory test 07/12/2017 Hepatitis E IgM Negative Negative 19 finding Antibody Laboratory test 07/12/2017 Hepatitis E IgM Negative Negative 20 finding Antibody Laboratory test 07/12/2017 Hepatitis E IgM Negative Negative 21 finding Antibody Laboratory test 07/12/2017 Hepatitis E IgM Negative Negative 22 finding Antibody Laboratory test 07/12/2017 Hepatitis E IgM Negative Negative 23 finding Antibody Laboratory test 07/12/2017 Hepatitis E IgM Negative Negative 24 finding Antibody Laboratory test 07/12/2017 Hepatitis E IgM Negative Negative 25 finding Antibody Laboratory test 12/02/2016 Cytology Non-Floor Technician SEE RESULT BELOW 26 finding Laboratory test 12/02/2016 Surgical Pathology SEE RESULT BELOW 27 finding Leukemia/Lymphoma 12/02/2016 Path Interpretation 2-8 TNP Flow Marker Path Interpret > 16 Marker TNP Path Interpret 9-15 Marker (SEE NOTE) 28 B-Cell Lymphoma Fish 12/02/2016 FBLP Specimen Bone Marrow FBLP Source Right PIC FBLP Reason for Referral See Comment 29 FBLP Method See Comment 30 FBLP Result Summary Normal FBLP Result See Comment 31 FBLP Result Table See Comment 32 FBLP Interpretation See Comment 33 FBLP Additional Information See Comment 34 FBLP Released By See Comment 35 FBLP Disclaimer See Comment 36 Plasma Cell Profliferative 12/02/2016 Plasma Cell Dis Res Abnormal Disorder Summary Plasma Cell Prolif Specimen Bone Marrow Plasma Cell Prolif Dis Source Right PIC Plasma Cell Referral Reason See Comment 37 Plasma Cell Prolif Dis Method See Comment 38 Plasma Cell Dis Result Table See Comment 39 Plasma Cell Prolif Dis Results See Comment 40 Plasma Cell Dis Interpretation See Comment 41 Plasma Cell Dis Add Info See Comment 42 Plasma Cell Dis Disclaimer See Comment 43 Plasma Cell Dis Released By See Comment 44 Laboratory test finding 11/04/2016 Ach Receptor Binding AB 0.00 nmol/L & lt;=0.02 45 Comp Metabolic Panel 11/04/2016 Sodium 134 mmol/L [...] Egfr Non- 49.5 >60 Egfr 63.7 >60 46 CBC Auto Diff 11/04/2016 White Blood Count [...] 11/04/2016 Surgical Interface Order SEE RESULT BELOW 47 Laboratory test finding 09/27/2016 Cytology Non-Floor Technician SEE RESULT BELOW 48 Laboratory test finding 09/27/2016 Surgical Pathology SEE RESULT BELOW 49 Laboratory test finding 05/28/2014 Fluid Crystals None Seen 50 Body Fluid C&S 05/28/2014 Body Fluid Cult Gram (SEE NOTE) 51 Stain 1 Because ethnic data is not [...] 5 Kidney failure <15 (or dialysis) 3 Because ethnic data is not always readily [...] 15-29 5 Kidney failure <15 (or dialysis) 4 >100 to <200 pg/mL: likely compensated congestive heart failure (CHF) 200 to 400 pg/mL: likely moderate CHF >400 pg/mL: likely moderate to severe CHF [address] Moreno by [id number] at 1734 on 09/26/17. Results read back accurately. 6 Negative result does not rule out HIV infection. If acute HIV infection is suspected in a high-risk individual, submit plasma specimen for HIV-1 RNA quantification test (HIVDQ) and/or HIV-2 DNA/RNA test (FHV2Q). Test Performed by: [place] [address] 7 Test Result Flag Unit RefValue Strongyloides Ab, IgG, S Negative Negative No detectable levels of IgG antibodies to Strongyloides. Repeat testing in 1-2 weeks if clinically indicated. Test Performed by: [place] [address] 8 If clinical suspicion persists, submit new specimen for retesting in 1 to 2 weeks. Test Performed by: [facility] [employer] [place] [address] 9 If clinical suspicion persists, submit new specimen for retesting in 1 to 2 weeks. Test Performed by: [place] [address] 10 Test Performed by: [place] [address] 11 If clinical suspicion persists, submit new specimen for retesting in 1 to 2 weeks. Test Performed by: [place] [address] 12 If clinical suspicion persists, submit new specimen for retesting in 1 to 2 weeks. Test Performed by: [place] [address] 13 If clinical suspicion persists, submit new specimen for retesting in 1 to 2 weeks. Test Performed by: [place] [address] 14 If clinical suspicion persists, submit new specimen for retesting in 1 to 2 weeks. Test Performed by: [place] [address] 15 If clinical suspicion persists, submit new specimen for retesting in 1 to 2 weeks. Test Performed by: [place] [address] 16 If clinical suspicion persists, submit new specimen for retesting in 1 to 2 weeks. Test Performed by: [place] [address] 17 If clinical suspicion persists, submit new specimen for retesting in 1 to 2 weeks. Test Performed by: [place] [address] 18 If clinical suspicion persists, submit new specimen for retesting in 1 to 2 weeks. Test Performed by: [place] [address] 19 If clinical suspicion persists, submit new specimen for retesting in 1 to 2 weeks. Test Performed by: [place] [address] 20 If clinical suspicion persists, submit new specimen for retesting in 1 to 2 weeks. Test Performed by: [place] [address] 21 If clinical suspicion persists, submit new specimen for retesting in 1 to 2 weeks. Test Performed by: [place] [address] 22 If clinical suspicion persists, submit new specimen for retesting in 1 to 2 weeks. Test Performed by: [address] [address] 23 If clinical suspicion persists, submit new specimen for retesting in 1 to 2 weeks. Test Performed by: [facility] [place] [address] 24 If clinical suspicion persists, submit new specimen for retesting in 1 to 2 weeks. Test Performed by: [facility] [place] [address] 25 If clinical suspicion persists, submit new specimen for retesting in 1 to 2 weeks. Test Performed by: [facility] [place] [address] 26 SEE RESULT BELOW Name: DIYA ASHFORD : [address]: Timmy Montoya MD Acct: [id number] Unit: [id number] AGE: 76 Location: Re12/02/16 SEX: M Status: REG REF SPEC: [id number] BRAD: 12/02/16-1415 [facility] DR: Timmy Montoya MD REQ: [id number] RECD: 12/02/161842 STATUS: TUNDE SALINAS DR: Isaac Salazar MD [...] performed at Main Lab DEPARTMENT OF PATHOLOGY, [address] [place] [address] Favian Templeton M.D. Director [facility] # [id number] 27 SEE RESULT BELOW Name: DIYA ASHFORD : [address]: Timmy Montoya MD Acct: [id number] Unit: [id number] AGE: 76 Location: Re12/02/16 SEX: M Status: REG REF SPEC: [id number] BRAD: 12/02/[address]: Timmy Montoya MD REQ: [id number] RECD: 12/02/16 STATUS: TUNDE SALINAS DR: Ari Salazar MD _ ORDERED: Decal, LEVEL 4/2, IMMUNO-FIRST, IMMUNO-ADDL/2, SPEC ST NON-ORG/2 Plasma cell disease has been performed at [place], [place]. The testing reveals: Specimen: Bone marrow. [...] pathologic correlation is recommended. Test Performed by: [facility] - [address] [address] CONTINUED ON NEXT PAGE * ML=Testing performed at [facility] DEPARTMENT OF PATHOLOGY, [address] [place] [address] Favian Templeton M.D. Director [place] # [id number] RUN DATE: 12/14/16 [facility] LAB LIVE PAGE 2 Patient: DIYA ASHFORD [id number] (Continued) ADDENDUM (Continued) Addendum Signed (signature on file) Sunita Landa MD 1043 B-cell lymphoma has been performed at [place], [place]. The testing reveals: Specimen: Bone marrow. Method: Locus and probes [Strategy;#Nuclei;Class] 3q27(3'BCL6,5'BCL6) [BAP;200;ASR] 8q24(5'MYC,3'MYC) [BAP;200;ASR] 11q13(CCND1-XT),14q32(IGH-XT) [DFISH;500;ASR] 17p13(TP53),17CEN(D17Z1) [COPY#;200;ASR] 18q21(5'MALT1,3'MALT1) [BAP;200;ASR] 18q21(5'BCL2,3'BCL2) [BAP;200;ASR] Probe strategies include: DFISH=dual color, double fusion; BAP=break-apart probe; COPY#=region gain and loss. Result: Interphase FISH is normal for all loci studied. Result Summary: Normal Result Table: Abnormality Name Result %Abn Cutoff (%) 8q24.1(MYC sep) Normal <6.5% -17p13.1(TP53x1,M60A8b0) Normal <9.5% -17(TP53,D17Z1)x1 Normal <5.5% 18q21(MALT1 sep) [...] performed at Main Lab DEPARTMENT OF PATHOLOGY, [address] [place] [address] Favian Templeton M.D. Director CLIA # [id number] RUN DATE: 12/14/16 [facility] LAB LIVE PAGE 3 Patient: DIYA ASHFORD [id number] (Continued) ADDENDUM (Continued) Additional cytogenetic studies are reported separately. Test Performed by: [address] [address] Addendum Signed (signature on file) Favian Templeton [...] performed at Main Lab DEPARTMENT OF PATHOLOGY, [address] [place] [address] Favian Templeton M.D. Director [facility] # [id number] RUN DATE: 12/14/16 [facility] LAB LIVE PAGE 4 Patient: DIYA ASHFORD [id number] (Continued) SPECIAL STUDIES (Continued) SPECIAL STUDIES Flow cytometry has been performed at [facility], [place], [place]. The testing reveals: FINAL DIAGNOSIS: Specimen Source: Right posterior iliac crest bone marrow Flow cytometry immunophenotypic analysis: Interpretative data: Lambda light chain restricted, CD19 positive, CD10 negative B-cell population detected (4% of WBCs, 19% of gated lymphocytes). [place] light chain restricted plasma cells, (less than [...] Electronically signed by: Favian Templeton MD 12/05/16 1456 Technical component performed by: [place] [address] Substation Operator Conversion: Jamie Porter II, MD, PhD. CONTINUED ON NEXT PAGE * ML=Testing performed at Main Lab DEPARTMENT OF PATHOLOGY, [address] [place] [address] Favian Templeton M.D. Director [facility] # [id number] RUN DATE: 12/14/16 [facility] LAB LIVE PAGE 5 Patient: DIYA ASHFORD [id number] (Continued) PRE-OPERATIVE DIAGNOSIS (Continued) PRE-OPERATIVE DIAGNOSIS D47.2 [...] performed at Main Lab DEPARTMENT OF PATHOLOGY, [facility] [employer] [place], [place] [address] Favian Templeton M.D. Director [facility] # [id number] RUN DATE: 12/14/16 [facility] LAB LIVE PAGE 6 Patient: DIYA ASHFORD [id number] (Continued) MICROSCOPIC DESCRIPTION (Continued) Signed (signature on file) Favian Templeton MD 1547 END OF REPORT * ML=Testing performed at Main Lab DEPARTMENT OF PATHOLOGY, [facility] [employer] [place], [place] [address] Favian Templeton M.D. Director [facility] # [id number] 28 FINAL DIAGNOSIS: Specimen Source: Right posterior iliac crest bone marrow Flow cytometry immunophenotypic analysis: Interpretative data: Lambda light chain restricted, CD19 positive, CD10 negative B-cell population detected (4% of WBCs, 19% of gated lymphocytes). [place] light chain restricted plasma cells, (less than [...] Electronically signed by: Favian Templeton MD 12/05/16 0102 Technical component performed by: [place] [address] Substation Operator Conversion: Jamie Porter II, MD, PhD. 29 RESULT: Monoclonal gammopathy, Hyperlipidemia, unspecified 30 Locus and probes [Strategy;#Nuclei;Class] 3q27(3'BCL6,5'BCL6) [BAP;200;ASR] 8q24(5'MYC,3'MYC) [BAP;200;ASR] 11q13(CCND1-XT),14q32(IGH-XT) [DFISH;500;ASR] 17p13(TP53),17CEN(D17Z1) [COPY#;200;ASR] 18q21(5'MALT1,3'MALT1) [BAP;200;ASR] 18q21(5'BCL2,3'BCL2) [BAP;200;ASR] Probe strategies include: DFISH=dual color, double fusion; BAP=break-apart probe; COPY#=region gain and loss. 31 RESULT: Interphase FISH is normal for all loci studied. 32 Abnormality Name Result %Abn Cutoff (%) 8q24.1(MYC sep) Normal <6.5% -17p13.1(TP53x1,W30N6z5) Normal <9.5% -17(TP53,D17Z1)x1 Normal <5.5% 18q21(MALT1 sep) Normal <3.5% 18q21(BCL2 sep) Normal <5.5% 3q27(BCL6 sep) Normal <3.5% t(11;14) CCND1-XT/IGH-XT fusion Normal <0.6% 33 This result is within normal limits for the B-cell lymphoma FISH panel. A normal FISH result does not exclude the presence of lymphoma in the bone marrow. Clinical and pathologic correlation is suggested. Additional cytogenetic studies are reported separately. 34 Previous Studies DATE SPECIMEN RESULT 01/26/2015 Marrow Plasma cell FISH abnormal 35 RESULT: Franklyn Pete M.D., Ph.D. Test Performed by: [facility] - [address] [address] 36 Applicable to Analyte Specific Reagent (ASR) and Laboratory Developed Tests (LDT). This test was developed and its performance characteristics determined by [facility] in a manner consistent with CLIA requirements. It has not been cleared or approved by the U.S. Food and Drug Administration. This FISH test does not rule out other chromosome abnormalities. 37 RESULT: Monoclonal gammopathy, Hyperlipidemia, unspecified 38 Locus and probes [Strategy;#Nuclei;Class] 1p36.3(TP73),1q22 [COPY#;50;LDT] 8q24(5'MYC,3'MYC) [BAP;50;ASR] 11q13(CCND1-XT),14q32(IGH-XT) [DFISH;50;ASR] Probe strategies include: DFISH=dual color, double fusion; BAP=break-apart probe; COPY#=region gain and loss. 39 Abnormality Name Result # Abn Total Cells t(11;14) CCND1-XT/IGH-XT Abnormal 6 9 fusion +11(CCND1-XTx3) Normal 0 9 40 RESULT: nuc simon(CCND1-XT,IGH-XT)x3(CCND1-XT con [facility]-XTx2) 41 The result is abnormal and indicates a [...] recommended. Additional cytogenetic studies are reported separately. 42 Previous Studies DATE SPECIMEN RESULT 01/26/2015 Marrow Plasma cell FISH abnormal 43 Applicable to Analyte Specific Reagent (ASR) and Laboratory Developed Tests (LDT). This test was developed and its performance characteristics determined by [facility] in a manner consistent with CLIA requirements. It has not been cleared or approved by the U.S. Food and Drug Administration. This FISH test does not rule out other chromosome abnormalities. 44 RESULT: Della Bell D.O. Test Performed by: [facility] - [address] [address] 45 ADDITIONAL INFORMATION This test was developed and its performance characteristics determined by [facility] in a manner consistent with CLIA requirements. This test has not been cleared or approved by the U.S. Food and Drug Administration. Test Performed by: [facility] - [address] [address] 46 Because ethnic data is not always readily [...] 15-29 5 Kidney failure <15 (or dialysis) 47 SEE RESULT BELOW Name: DIYA ASHFORD : [address]: Ari Salazar MD Acct: [id number] Unit: [id number] AGE: 76 Location: [facility] Re11/04/16 SEX: M Status: REG REF SPEC: [id number] BRAD: 11/04/16-1250 [facility] DR: Isaac Ruiz MD REQ: [id number] RECD: 11/04/16-4746 STATUS: TUNDE SALINAS DR: Franklyn Guillen MD [...] performed at Main Lab DEPARTMENT OF PATHOLOGY, [address] [place] [address] Favian Templeton M.D. Director [facility] # [id number] 48 SEE RESULT BELOW Name: DIYA ASHFORD : [address]: Gonzalo Nunez MD Acct: [id number] Unit: [id number] AGE: 76 Location: [place] [address] Re09/27/16 SEX: M Status: ADM Kiel SPEC: [id number] BRAD: 09/27/16-1640 [facility] DR: Gonzalo Nunez MD REQ: [id number] RECD: 09/27/16 STATUS: SOUT _ ORDERED: THIN PREP NON G FINAL DIAGNOSIS Peritoneal fluid: -- Negative for malignant cells. -- Mixed lymphoid elements, macrophages and scattered mesothelial elements only. 1. PERITONEAL - PERITONEAL FLUID GROSS DESCRIPTION 35 mls of cloudy yellow/green fluid. Signed (signature on file) Favian Templeton MD 1327 END OF REPORT * ML=Testing performed at Main Lab DEPARTMENT OF PATHOLOGY, [address] [place] [address] Favian Templeton M.D. Director [facility] # [id number] 49 SEE RESULT BELOW Name: DIYA ASHFORD : [address]: Gonzalo Nunez MD Acct: [id number] Unit: [id number] AGE: 76 Location: [facility] [id number] Re09/27/16 Dis: 09/28/16 SEX: M Status: DIS Kiel SPEC: [id number] BRAD: 09/27/16- SUBM DR: Gonzalo Nunez MD REQ: [id number] RECD: 09/27/16 STATUS: SOUT _ ORDERED: TRICHROME [...] and the wall thickness averages 0.1 cm. Curriculum Director sections, one cassette. 2. The specimen is received in formalin labeled, Liver Biopsy, and consists of a 1.5 x 0.1 CONTINUED ON NEXT PAGE * ML=Testing performed at Main Lab DEPARTMENT OF PATHOLOGY, [address] [place] [address] Favian Templeton M.D. Director [facility] # [id number] RUN DATE: 09/29/16 [facility] LAB LIVE PAGE 2 Patient: DIYA ASHFORD [id number] (Continued) GROSS DESCRIPTION (Continued) GROSS DESCRIPTION (Continued) cm patten soft tissue core admixed with scant red-brown blood clot. Entirely submitted, one cassette. Signed (signature on file) Favian Templeton MD 1647 END OF REPORT * ML=Testing performed at Main Lab DEPARTMENT OF PATHOLOGY, [facility] [employer] [place], [place] [address] Favian Templeton M.D. Director [facility] # [id number] 50 Synovial (Joint) Fluid 51 RUN DATE: 06/01/14 [facility] LAB LIVE PAGE 1 RUN TIME: 814 [facility] [address] [place], [place] [address] Specimen Inquiry Name: DIYA ASHFORD : 1940 Attend Dr: Dominic Jensen MD Acct: [id number] Unit: [id number] AGE: 74 Location: [facility] Re05/28/14 SEX: M Status: REG REF SPEC: [id number] BRAD: 05/28/[address]: Dominic Jensen MD REQ: [id number] RECD: 05/28/14 STATUS: COMP _ SOURCE: JOINT FLUI SPDESC:KNEE LEFT ORDERED: BF Cult/GS Procedure Result Verified Site Body Fluid Gram Stain Final 05/28/14- 1055 ML 4+ Neutrophils No Organisms Seen BY CENTRIFUGED SMEAR Body Fluid Culture Final 06/01/14- 0815 ML No Growth Day 4 END OF REPORT * ML=Testing performed at Main Lab DEPARTMENT OF PATHOLOGY, [address] [place] [address] Favian Templeton M.D. Director [facility] # [id number] Procedures Date CPT Code Description Status 10/03/2017 86153 EKG Tracing & Interpretation Completed 09/29/2017 04235 ECHO Transthorasic Realtime 2D W Doppler & Color Completed Flow Hosp 09/25/2017 17818 Removal With Replacement Dual Lead System Pulse Completed Generator 09/24/2017 40705 Interrogation Device Eval In Person W/DR Completed Analysis,Single,Dual,Mul 09/22/2017 73670 ECHO Transthorasic Realtime 2D W Doppler & Color Completed Flow Hosp 02/23/2017 59207 ECHO Transthorasic Realtime 2D W Doppler & Color Completed Flow Hosp 11/04/2016 98294 Catheter Placement Venous Second Order Branch Completed 11/04/2016 85170 Transcatheter Biopsy Completed 11/04/2016 45295 Venography Liver W/Hemodynamic Evaluation Completed 11/04/2016 69143 Transcatheter Biopsy Radiology Completed 11/04/2016 46152 Ultrasound Guidance For Vascular Access Completed 09/27/2016 12178 Laparoscopy Cholecystectomy Completed 09/27/2016 37192 Laparoscopy Cholecystectomy Completed 09/27/2016 06247 Biopsy Liver W/Other Major Procedure Completed 05/28/2014 66182 Rad Exam; Knee, Ap&L Completed 05/28/2014 51841 Rad Exam; Knee, Ap&L Completed 05/28/2014 55451 Rad Exam; Pelvis Completed 02/03/2012 21555 Rad Exam; Foot Comp Completed Encounters Type Date Location Provider CPT E/M Dx Office Visit 09/24/2017 3:30p [facility] [place] [address] R55 [facility] FACC E87.70 Z95.0 Office Visit 09/23/2017 12:32p [facility] [place] [address] R55 FACC Z95.0 Office Visit 09/22/2017 12:34p [facility] [place] [facility] [place] [address] R55 FACC Z95.0 Office Visit [facility]/14[facility]2017 [facility] [place], [address] R18.8 Infectious Diseases M.D. Office Visit 07/10/2017 3:40p [facility] Tommy Wei, [address] K73.9 Infectious Diseases M.D. R18.8 Office Visit 03/30/2017 9:45a [facility] [place] [address] G47.33 [facility] Office Visit 09/27/2016 2:49p [facility] Shruti 765[address] K70.31 Hospitalists DARLENE Shields G47.33 I10 Z90.49 Office Visit 08/10/2016 1:30p [facility] [place], [address] K80.20 [facility] FACS Office Visit 03/01/2016 9:45a [facility] [place] [address] G47.33 [facility] K21.9 E66.01 Office Visit 07/07/2014 9:15a [facility] Dominic Jensen M.D. 53178 724.4 C.M.A. Office Visit 06/30/2014 8:45a [facility] [place] [address] 327.23 [facility] 719.46 Office Visit 06/11/2014 9:15a [facility]ic Jensen M.D. 89947 715.16 C.M.A. Office Visit 05/28/2014 8:00a [facility] M.D. 84835 715.16 C.M.A. Office Visit 03/05/2012 11:15a [facility] [place] [address]5529 845.10 C.MSerena Epstein. Office Visit 02/10/2012 8:15a [facility] 49738 729.5 C.M.ALow MSwapna. Office Visit 02/03/2012 11:30a [facility] 30846 729.5 C.M.ALow MPolly Plan of Care Future Appointment(s):10/17/2017 11:00 am - Angelic Olmedo M.D. at [facility]10/10/2017 9:30 am - Angelic Olmedo M.D. at [facility]03/30/2018 9:00 am - Miriam Anguiano MD at [facility]10/04/2017 - Patrick Joshua M.D., [facility], VLBBTX63.1 Encounter for planned postprocedural wound closureComments:Your catheterization site appears to be healing well.Recommendations:Follow up with your primary refuse driver, Dr. Olmedo and Dr. Barriga.I21.4 Non-St elevation (Nstemi) myocardial infarctionComments:You still notice mild chest tightness not like before the stent. You notice mild arm discomfort walking up the stairs but much less.Recommendations:You will follow up with testing with Dr. Olmedo.N18.3 Chronic kidney disease, stage 3 (moderate)Comments:Your most recent blood test remains the same suggesting moderate kidney disease. Your blood test show your anemia.Recommendations:After discussion with Dr. Olmedo she favors we decrease her diuretics to be given a total of 4 daysa week. Lasix on , and Saturdays , Spirinolactone on Monday and . Follow up with Dr. Guillen and Dr. Ward regarding your anemia.
[2017-10-16 12:49] LABS: EGFR Non-African American 33.7 (>60)
[2017-10-16 12:54] LABS: INR 0.89 (0.77-1.02)
[2017-10-16] MEDS ORDERED: NS 0.9% 1000 ML* 1,000 ML IV ONE (13:06)
--- NOTE | 2017-10-16 13:21 | RAD ---
Indication: Shortness of breath. Single frontal view of the chest performed at 1309 hours was reviewed. Comparison is made with previous exam dated September 26, 2017. No mediastinal shift is noted. Heart is of normal size and configuration. Lung aguero appear clear. IMPRESSION: NO ACTIVE CARDIOPULMONARY DISEASE IS NOTED.
[2017-10-16] MEDS ORDERED: Nitroglycerin TAB 0.4 MG* 0.4 MG TAB SL PRN (13:36)
[2017-10-16] MEDS: Pantoprazole IV* 80 MG in NS 0.9% 250 ML* 250 ML IV SCH (16:22)
[2017-10-16] MEDS: Atorvastatin* 40 MG TAB PO SCH (16:22)
[2017-10-16] MEDS: Spironolactone TAB* 25 MG PO SCH (16:29)
[2017-10-16 20:15] LABS: Hematocrit 22 % (42-52); Hemoglobin 7.7 g/dl (14.0-18.0)
[2017-10-16] MEDS: Metoprolol Tartrate TAB* 25 MG PO SCH (20:28)
--- NOTE | 2017-10-16 21:50 | HP ---
AMENDED REPORT NOW INCLUDES COSIGNER DESIGNATION - ESIGNED BEFORE ADJUSTMENT CC: Dr. Cano; Dr. Johnston * ADMISSION HISTORY AND PHYSICAL: DATE OF ADMISSION: 10/16/17 PRIMARY CARE PHYSICIAN: Dr. Johnston. ATTENDING ON THIS ADMISSION: Dr. Gertrudis Cano.* (DICTATED BY JOSE R MAHMOOD NP) HYDROMETER CALIBRATOR: Dr. Angelic Olmedo. SEO COORDINATOR/ONCOLOGIST: Dr. Guillen. CHIEF COMPLAINT: Dark stools and shortness of breath. HISTORY OF PRESENT ILLNESS: This is a very pleasant 77-year-old male patient well known to our service for his recent hospitalization for NSTEMI and stenting. The patient was at home and his usual followup, had presented to Dr. Johnston following blood work, which showed hemoglobin of 7. The patient also had stool sample at that time; however, the patient was extremely symptomatic with fatigue and shortness of breath times a couple of days. He denied any chest pain; however, he does note that he had 2 units of blood and 2 units of albumin with Dr. Guillen when he had his last paracentesis. The patient does have history of cryptogenic liver disease and goes for paracentesis every 2 weeks. However, the patient again was not feeling well and then was sent to the emergency department for evaluation of symptomatic anemia likely secondary to his Brilinta. PAST MEDICAL HISTORY: Significant for coronary artery disease and recent IN, with bare-metal stenting on 09/28/17; cryptogenic cirrhosis with biweekly paracentesis, managed by Dr. Guillen; history of SVT, with pacemaker placement; hyperlipidemia; arthritis; BPH; remote history of bladder cancer; chronic kidney disease, stage 2. MEDICATIONS AT HOME: Include: 1. Furosemide 40 mg daily. 2. Baby aspirin 81 mg daily. 3. Spironolactone 50 mg in the evening. 4. Brilinta 90 mg 2 times a day. 5. Atorvastatin 40 mg daily. 6. Nitroglycerin 0.4 mg as needed. 7. Metoprolol tartrate 25 mg 2 times a day. 8. Protonix 40 mg daily. ALLERGIES: The patient has allergies to HORSE DANDER and HORSE PRODUCTS, LATEX , MIDODRINE, and HORSE SERUM. FAMILY HISTORY: Father with bladder cancer. Brother with colon cancer. SOCIAL HISTORY: The patient denies any alcohol, any tobacco use or abuse now or in the past, never any illicit drug use. He is retired. He lives at home with his . His , Tanja, is his medical healthcare proxy. REVIEW OF SYSTEMS: A 10-point review of systems is negative except as noted in the HPI. PHYSICAL EXAMINATION GENERAL: The patient is awake and alert, no acute distress, well appearing. VITAL SIGNS: Blood pressure 107/52, heart rate 80, respiratory rate 16, satting 100% on room air, temperature is 96.6. HEENT: The patient is atraumatic, normocephalic. PERRLA with nonicteric sclerae. The patient does wear glasses. No hearing loss noted. Oral mucosa is a bit dry. NECK: Supple, nontender. No JVD noted. No carotid bruits auscultated. LUNGS: Clear bilaterally to auscultation with no wheezing, rhonchi, or rales. CARDIOVASCULAR: S1 and S2 were present. He is paced on the monitor with no ectopy and no acute ST-segment changes noted. ABDOMEN: Soft, nontender, moderately distended secondary to ascites. He does have some shifting dullness and tympany, unable to palpate the liver secondary to his ascites, but per the patient's report, he is at his baseline. : Deferred. MUSCULOSKELETAL: There is no clubbing, no cyanosis, no edema. He has +2 distal pulses palpable. NEUROLOGIC: Grossly intact, alert, and oriented x3 with no focal deficits. PSYCHIATRIC: Cooperative and appropriate. DIAGNOSTIC STUDIES/LAB DATA: WBCs 8.3, RBCs 2.93, hemoglobin 8.4, hematocrit 26, platelets 330. Sodium 134; potassium 4.4; chloride 105; CO2 22; BUN 60; creatinine 1.95, this is at the patient's baseline; GFR is 33.7; glucose 117; calcium 7.9. Bilirubin 0.4, AST 21, ALT 18, alk phos 109. Total protein 5.9, albumin 2.7, globulin 3.2. Coags: INR is 0.89. Imaging: Chest x-ray dated today shows no active cardiopulmonary disease as compared his film on 09/26/17 and no further imaging noted for today. IMPRESSION AND PLAN: This is a very pleasant 77-year-old male patient with a complex medical history that presents with complaint of dark stools and shortness of breath while on Brilinta, will be admitted to medical service for upper gastrointestinal bleeding. Plan: 1. Gastrointestinal bleed. Dr. Ruiz has already been contacted. The patient will be started on Protonix drip. He has received 1 unit of blood, which is in process at this time and fluid resuscitation for his hypotension. The patient will have endoscopy tomorrow, we will keep him n.p.o. except ice chips and continue to monitor his bleeding and his H and H very closely. 2. Cryptogenic liver disease. The patient is currently stable. He had his last tap on 10/06/17. He gets tapped every 2 weeks. We will talk to Dr. Guillen and let him know the patient is here, although he is currently at his baseline with his ascites. 3. For his history of non-ST elevation myocardial infarction and recent stenting with coronary artery disease, we reached out to Dr. Burak Greenfield, who is contract clerk automobile for Cardiology today. He will see the patient. We will hold his Brilinta and his aspirin given his acute bleeding right now. We also reached out to Dr. Joshua, who actually placed the stent last time. He is aware that the patient is here and recommends restarting Brilinta as soon as GI clears. May be able to load with Plavix if Brilinta not an option. 4. For his chronic kidney disease, he is at his baseline, although I suspect his renal function may become further impaired given the gastrointestinal bleeding. We will continue to monitor his renal function closely. Again, he has received fluids and blood. 5. The patient also has history of benign prostatic hyperplasia and obstructive sleep apnea. Benign prostatic hyperplasia is stable and for his sleep apnea, we need to confirm with him, whether he does CPAP at home or not. If he does, we can place him on hospital CPAP if he does not have this with him. We will continue the rest of his home medications with exceptions noted as above. The rest of the the patient's course will be determined by further diagnostics, laboratories, and any other input from other providers is warranted during this admission. This plan of care has been approved by Dr. Gertrudis Cano, who is the attending on this case, and also with the family and the patient's at bedside. TIME SPENT: I have spent in excess of 60 minutes on this admission, most of which has been [id number] with the past and also interfacing with the ER staff and reviewing the chart. JOSE R MAHMOOD, TABLE COVER FOLDER [id number]/[facility] #: [id number] GALO
--- NOTE | 2017-10-16 22:32 | CONS ---
CONSULTATION REPORT: DATE OF CONSULTATION: 10/16/17 REQUESTING PHYSICIAN: Dr. Cano. INDICATION: Melena. NARRATIVE: Mr. Ashford is a very pleasant 77-year-old gentleman well known to myself. He has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 unknown etiology, who has been getting frequent paracenteses for ascites. He does have a history of coronary artery disease with stents in the past. The patient did have an AL 2 weeks ago, had new stents placed, and was started on Brilinta. Since that time, he has been feeling short of breath, weak, has been having dark stools. He went to his primary care physician, who found a hemoglobin of 7 today, and he was referred to the emergency room. He denies any vomiting. He states that he believes his ascites is lessening in nature. He did have an EGD in the past, which revealed portal hypertensive gastropathy. He denies any nonsteroidals except for aspirin 81 mg a day. CURRENT MEDICATIONS: Include: 1. Lasix 40 mg twice a day. 2. Cephalexin 500 mg twice a day. 3. Aspirin 81 mg a day. 4. Spironolactone 50 mg in the morning. ALLERGIES: LATEX and MIDODRINE. FAMILY HISTORY: Bladder cancer and colon cancer. REVIEW OF SYSTEMS: 12 systems were reviewed, other than that mentioned in the HPI were unremarkable. PHYSICAL EXAM: Vital Signs: Temperature is 97.3, blood pressure is 118/61, pulse is 90. General: Well-appearing male, in no apparent distress. Alert, oriented, pleasant, fluent. HEENT: Mucous membranes are moist without lesions , ulcers or exudate. Neck is supple. Trachea is midline. Head is normocephalic, atraumatic. Heart: Regular rate and rhythm. Lungs: Clear to auscultation. Abdomen: Massively distended, soft, nontender. Skin: Warm and dry. LABORATORY DATA: Of note, hemoglobin is 8.4, platelets of 330, INR is 0.89, BUN is 60, creatinine is 1.95. ASSESSMENT AND PLAN: This is a pleasant 77-year-old gentleman with a history of portal hypertensive gastropathy at his last endoscopy in November 2016. He was started on Brilinta. Likely, he is oozing from the PHG secondary to the Brilinta. We have stopped the Brilinta. He does need to repeat EGD to risk stratify whether or not we can continue with the Brilinta or not. Cardiology services are already following. [id number]/[facility] #: [id number] GALO
[2017-10-17] MEDS: Pantoprazole IV* 80 MG in NS 0.9% 250 ML* 250 ML IV SCH ×3 (02:43→20:03)
[2017-10-17] MEDS: Furosemide TAB* 40 MG PO SCH (08:55)
[2017-10-17] MEDS: Metoprolol Tartrate TAB* 25 MG PO SCH ×2 (08:55→20:18)
[2017-10-17] MEDS ORDERED: Midazolam* 1 MG/ML 10 ML VIAL (10 MG) ONE ×2 (15:04→15:05)
[2017-10-17] MEDS ORDERED: fentaNYL* 50 MCG/ML 2 ML VIAL (100 MCG VIAL) ONE ×2 (15:04→15:05)
[2017-10-17] MEDS: Atorvastatin* 40 MG TAB PO SCH (18:21)
--- NOTE | 2017-10-17 19:33 | PN ---
Subjective Date of Service: 10/17/17 Interval History: patient examined at bedside. Denies chest pain or shortness of breath. Denies abd pain, n/v/d. denies any melena today Family History: Unchanged from Admission Social History: Unchanged from Admission Past Medical History: Unchanged from Admission Objective Active Medications: Atorvastatin Calcium (Lipitor*) 40 mg PO 1700 [facility] Last Admin: 10/17/17 18:21 Dose: 40 mg Furosemide (Lasix Tab*) 40 mg PO DAILY [facility] Last Admin: 10/17/17 08:55 Dose: 40 mg Metoprolol Tartrate (Lopressor Tab*) 25 mg PO 0900,2100 [facility] Last Admin: 10/17/17 08:55 Dose: 25 mg Nitroglycerin (Nitroglycerin Tab 0.4 Mg*) 0.4 mg SL Q5M PRN PRN Reason: ANGINA Omeprazole (Prilosec Cap*) 20 mg PO BID [facility] Spironolactone (Aldactone Tab*) 50 mg PO MoTh@0900 [facility] Last Admin: 10/16/17 16:29 Dose: 50 mg Vital Signs - 8 hr 10/17/17 10/17/17 10/17/17 11:46 13:47 14:14 Temperature 97.5 F 97.8 F 98.6 F Pulse Rate 64 71 73 Respiratory 20 20 Rate Blood Pressure 96/56 108/56 97/55 (mmHg) O2 Sat by Pulse 100 100 100 Oximetry 10/17/17 10/17/17 14:42 17:22 Temperature 98.1 F 97.5 F Pulse Rate 74 76 Respiratory Rate Blood Pressure 100/56 98/53 (mmHg) O2 Sat by Pulse 98 100 Oximetry Oxygen Devices in Use Now: Nasal Cannula Appearance: appears comfortable sitting in bed Eyes: No Scleral Icterus Ears/Nose/Mouth/Throat: Clear Oropharnyx, Mucous Membranes Moist Neck: NL Appearance and Movements; NL JVP, Trachea Midline Respiratory: Symmetrical Chest Expansion and Respiratory Effort, Clear to Auscultation, - - diminished t/o bilat Cardiovascular: NL Sounds; No Murmurs; No JVD, No Edema Abdominal: NL Sounds; No Tenderness; No Distention, - - rounded Extremities: No Edema, No Clubbing, Cyanosis Skin: No Rash or Ulcers Neurological: Alert and Oriented x 3 Nutrition: Taking PO's Result Diagrams: 10/16/17 20:09 10/16/17 13:18 Assess/Plan/Problems-Billing Assessment: Mr. Ashford is a 77 yo male with a history of cryptogenic cirrhosis, hyperlipidemia, arthritis, BPH and recent PA with bare metal stenting on . Admitted for melena, Seen by GI and was scheduled for EDG today. - Patient Problems (1) GI bleed Current Visit: Yes Status: Acute Code(s): K92.2 - GASTROINTESTINAL HEMORRHAGE, UNSPECIFIED SNOMED Code(s): 32111644 Comment: GI consulted and will do EDG today~ old blood found, no active bleeding. Will change protonix drip to omeprazole 20 mg BID continue to trend H/H tranfuse 2 units of PRBC's (2) Ascites Current Visit: No Status: Acute Code(s): R18.8 - OTHER ASCITES SNOMED Code (s): 438230275 Comment: States that he byweekly paracentesis due monday but states that the plan is to wait 3 weeks this time. abd rounded~ non tender (3) CAD (coronary artery disease) Current Visit: No Status: Chronic Code(s): I25.10 - ATHSCL HEART DISEASE OF [place] CORONARY ARTERY W/O ANG PCTRS SNOMED Code(s): 60492486 Comment: Patient with recent PA and Stenting 09/28/17 Denies chest pain Will restart EC ASA 81 mg ~ ok'd per GI Continue metoprolol (4) Anemia Current Visit: Yes Status: Acute Code(s): D64.9 - ANEMIA, UNSPECIFIED SNOMED Code(s): 096400335 Comment: H/H 7.02/18 Will tranfuse to goal of 05/29~ d/t recent PA and cardiac disease Tranfuse 2 units of PRBC today Repeat CBC in AM (5) CKD (chronic kidney disease) Current Visit: No Status: Chronic Code(s): N18.9 - CHRONIC KIDNEY DISEASE, UNSPECIFIED SNOMED Code(s): 430349527 Comment: - at baseline - Continue to monitor and limit nephrotoxic agents (6) HLD (hyperlipidemia) Current Visit: No Status: Chronic Code(s): E78.5 - HYPERLIPIDEMIA, UNSPECIFIED SNOMED Code(s): 30417980 Comment: - Continue atorvastain (7) DVT prophylaxis Current Visit: No Status: Acute Code(s): [id number] - SNOMED Code(s): 015849286 Comment: - SCDs (8) Full code status Current Visit: No Status: Acute Code(s): Z78.9 - OTHER SPECIFIED HEALTH STATUS SNOMED Code(s): 026627565 Status and Disposition: will discharge when able~ poss tomorrow
[2017-10-17] MEDS: Omeprazole CAP* 20 MG PO SCH (20:46)
--- NOTE | 2017-10-18 00:59 | CONS ---
CARDIOLOGY CONSULTATION: DATE OF CONSULT: 10/16/17 INDICATION FOR CONSULTATION: Coronary artery disease. HISTORY OF PRESENT ILLNESS: The patient is a 77-year-old gentleman with a history of coronary artery disease, history of recent stenting to his left circumflex artery by Dr. Joshua with a bare-metal stent. The patient went to see Dr. Johnston yesterday for blood work. He complained of dark tarry stools. His hemoglobin at that time was 7 and he was transferred to the emergency room. The patient does have a history of cryptogenic liver disease as well as portal hypertension. He does get paracentesis every 2 weeks. In the emergency room, the patient's Brilinta was stopped. His national flatbed truck driver doctor thought that his bleeding was from his portal veins because of the Brilinta. In speaking with the patient, he has no symptoms. The patient denies any angina. He denies any orthopnea. He denies any palpitations. The patient has noticed some slight increase in shortness of breath with exertion, which is likely due to his anemia. PAST MEDICAL HISTORY: Significant for: 1. Coronary artery disease as described above. 2. History of cryptogenic cirrhosis. 3. SVT. 4. Pacemaker placement. 5. Hyperlipidemia. 6. BPH. 7. Chronic renal insufficiency. OUTPATIENT MEDICATIONS: 1. Furosemide 40 mg a day. 2. Aspirin 81 mg a day. 3. Spironolactone 50 mg a day. 4. Brilinta 90 mg b.i.d., which is on hold. 5. Atorvastatin 40 mg a day. 6. Metoprolol tartrate 25 mg b.i.d. 7. Protonix 40 mg a day. ALLERGIES: HORSE PRODUCTS and LATEX. FAMILY HISTORY: Father of bladder cancer. Brother of colon cancer. SOCIAL HISTORY: He denies tobacco or alcohol use. He lives with his . 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 PHYSICAL EXAM: Height is 5 feet 11 inches, weight 219 pounds. Temperature 97.5 , heart rate of 64, respiratory rate is 20, blood pressure 108/56. Sclerae anicteric. Oropharynx is pink without erythema. Carotids are 2+ without bruits. JVD is normal. Thyroid is normal. Cardiac Exam: S1, S2 without any murmurs, rubs, or gallops. PMI is normal. Lungs are clear to auscultation bilaterally. There is no dullness to percussion. Abdomen is soft, nontender, nondistended with normoactive bowel sounds. Extremities show minimal edema. The patient is awake, alert, and oriented. He moves all 4 extremities equally. LABORATORY STUDIES: White count was 8.3, hemoglobin 8.4, hematocrit 26, platelet count 300. Chemistries within normal limits. BUN 60, creatinine 1.95. AST and ALT are normal. IMPRESSION AND PLAN: This is a 77-year-old gentleman with a history of severe coronary artery disease, history of cryptogenic liver disease, and portal hypertension. The patient is admitted to the hospital with GI bleeding and severe anemia. Currently, the patient is off his Brilinta, he is getting a transfusion. He will get endoscopy with Dr. Ruiz during this hospitalization. For now, my recommendations is to stay off Brilinta. He will continue on his aspirin. Further recommendations pending the results of his endoscopy with Dr. Ruiz. The patient is already 2 weeks out from his bare-metal stent. It may not be worth putting him back on Brilinta as this is going to be close to the 4 weeks before he is able to restart the Brilinta anyway. The patient will follow up with Dr. Olmedo as an outpatient. [id number]/[facility] #: [id number] [facility] HEALTHMadeleine
[2017-10-18 05:41] LABS: ABS Basophils 0 10^3/ul (0-0.2); ABS Eosinophils 0 10^3/ul (0-0.6); ABS Lymphocytes 0.8 10^3/ul (1.0-4.8); ABS Monocytes 0.4 10^3/ul (0-0.8); ABS Neutrophils 2.6 10^3/ul (1.5-7.7); ABS Nucleated RBC 0 10^3/ul; Eosinophil % 1.2 % (0-6); Hematocrit 26 % (42-52); Hemoglobin 8.7 g/dl (14.0-18.0); Lymphocyte % 21.7 % (25-47); Mean Corpuscular HGB Conc 34 g/dl (31-36); Mean Corpuscular Hemoglobin 28 pg (27-31); Mean Corpuscular Volume 85 fL (80-94); Mean Platelet Volume 8 um3 (7.4-10.4); Nucleated Red Blood Cells % 0; Platelet Count 187 10^3/ul (150-450); Red Blood Count 3.06 10^6/ul (4.0-5.4); Red Cell Distribution Width 17 % (10.5-15); White Blood Count 3.9 10^3/ul (3.5-10.8)
[2017-10-18 05:59] LABS: EGFR Non-African American 32.9 (>60)
[2017-10-18] MEDS: Furosemide TAB* 40 MG PO SCH (07:33)
[2017-10-18] MEDS: Omeprazole CAP* 20 MG PO SCH ×2 (07:33→17:27)
[2017-10-18] MEDS: Metoprolol Tartrate TAB* 25 MG PO SCH ×2 (07:33→21:40)
[2017-10-18] MEDS ORDERED: Aspirin EC Low Dose* 81 MG TAB.EC PO SCH (09:00)
--- NOTE | 2017-10-18 13:16 | PN ---
Subjective Date of Service: 10/18/17 - CC: black stool, SOB Interval History: Still SOB, no arm or chest pain. Energy is not back to normal but better. Medications Active Medications: Aspirin (Aspirin Ec Low Dose*) 81 mg PO DAILY [facility] Last Admin: 10/18/17 07:33 Dose: 81 mg Atorvastatin Calcium (Lipitor*) 40 mg PO 1700 [facility] Last Admin: 10/17/17 18:21 Dose: 40 mg Furosemide (Lasix Tab*) 40 mg PO DAILY [facility] Last Admin: 10/18/17 07:33 Dose: 40 mg Metoprolol Tartrate (Lopressor Tab*) 25 mg PO 0900,2100 [facility] Last Admin: 10/18/17 07:33 Dose: 25 mg Nitroglycerin (Nitroglycerin Tab 0.4 Mg*) 0.4 mg SL Q5M PRN PRN Reason: ANGINA Omeprazole (Prilosec Cap*) 20 mg PO BID AC [facility] Last Admin: 10/18/17 07:33 Dose: 20 mg Spironolactone (Aldactone Tab*) 50 mg PO MoTh@0900 [facility] Last Admin: 10/16/17 16:29 Dose: 50 mg Objective Vital Signs: Temp Pulse Resp BP Pulse Ox 98.5 F 74 20 100/55 98 10/18/17 12:48 10/18/17 12:48 10/18/17 12:48 10/18/17 12:48 10/18/17 12:48 Oxygen Devices in Use Now: None, Nasal Cannula Appearance: older gentleman, seated, eating lunch in no acute distress. Eyes: No Scleral Icterus, PERRLA Ears/Nose/Mouth/Throat: Clear Oropharnyx, Mucous Membranes Moist Neck: Trachea Midline, No Thyroid Enlargement, Masses Respiratory: Symmetrical Chest Expansion and Respiratory Effort, Clear to Auscultation - mildly diminished breathsounds in the bases. Cardiovascular: RRR - pacer incision left healing nicely Abdominal: - - distended, non tender, active bowel sounds. Extremities: No Edema Skin: No Rash or Ulcers Neurological: Alert and Oriented x 3, NL Muscle Strength and Tone Lines/Tubes/Other Access: Clean, Dry and Intact Peripheral IV Laboratory Results: 10/18/17 05:23 10/18/17 05:23 INR (Anticoag Therapy) 0.89 (0.77-1.02) 10/16/17 11:55 APTT 29.0 seconds (26.0-36.3) 10/16/17 11:55 Total Bilirubin 0.40 mg/dL (0.2-1.0) 10/16/17 11:55 AST 21 U/L (13-39) 10/16/17 13:18 ALT 18 U/L (7-52) 10/16/17 11:55 Alkaline Phosphatase 109 U/L (34-104) H 10/16/17 11:55 Total Protein 5.9 g/dL (6.4-8.9) L 10/16/17 11:55 Albumin 2.7 g/dL (3.2-5.2) L 10/16/17 11:55 Globulin 3.2 g/dL (2-4) 10/16/17 11:55 Albumin/Globulin Ratio 0.8 (1-3) L 10/16/17 11:55 Diagnostic Imaging: EGD per verbal discussion with Dr. Ruiz: 10-15 small ulcerations. No active bleeding. Assessment/Plan 77 yo male with CAD, recent angina/ACS/NQMI following stress of AV dissociation/ pacer generator change with BMS 09/28/17 and Brilinta started. Now presents with melena, guiaic +, gastric ulcerations confirmed on EGD. Getting PRBC and still anemic. Plan via GI and hospitalists was to re initiate ASA-EC. I discussed the case with Dr. Ruiz to leave off ASA as this causes GI ulcerations and instead start on plavix alone, the latter being better for recent BMS, less bleeding risk than Brilinta and w/o the risk of causing new GI ulcerations. He agrees with above. Plan/recommendations: Anemia: PRBC hanging. GI bleed: Leave off ASA. Continue PPI. CAD/BMStent: Re Start plavix 75 mg/day (no load, inadvisable per Dr. Ruiz). Continue lipator and metoprolol. RI: Follow. BUN should improve as GI bleed resolves. Ascites: Dr Guillen follows. Continue diuretics.
--- NOTE | 2017-10-18 16:33 | PRO ---
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 He was sent home on Brilinta and baby aspirin. He says his stool has promptly turned dark with a little bit of reddishness in the water. There was no syncope. He just gradually got weaker. On admission, his hemoglobin was 7. He has now had 3 units transfusion and Brilinta is being held. Endoscopy in November 2016 showed portal hypertensive gastropathy but no varices. He has been diagnosed with cryptogenic cirrhosis with second opinions at [facility] and [facility]. ENDOSCOPIST: Rc Campo MEDICATIONS: Midazolam 3.5, fentanyl 25. FINDINGS: He is a healthy-appearing slightly pale older man in no distress. EGD: Larynx - limited views, symmetric. Esophagus - easily entered and the mucosa is normal in the upper, mid, and lower esophagus with EG junction at 34 with no varices or venous prominence. There are no erosions. Stomach - generally normal appearance with normal rugal folds. In retroflexion , there are some bulging folds in the fundus though they are not conclusively varices. They have no red dacia sign or stigmata. There are no erosions in the gastric body. The antrum appears normal. Duodenum - immediately on entry, there is a small amount of blood spattered secretions, a sense of some recent fresh welling at a 10 or 11 o'clock orientation. Gentle lavage with suctioning, however, clears this area and there is no continued bleeding and no underlying mucosal defect there. There is some minimal erythema appearing consistent with duodenitis, but again no definitive mucosal break and no AVM. There are very prominent Tres's glands at the apex of the bulb, but they are not bleeding and have no erosions. Second, third , and 4th portions of the duodenum appeared normal. There are no AVMs. IMPRESSION: 1. Small hiatal hernia. 2. Tres's gland hypertrophy. 3. Duodenal erythema - minimal with possibly some oozing of blood recently, though no definitive target for a therapeutic endoscopy. The finding is most consistent with aspirin effect, probably bleeding heavily under the influence of Brilinta. Continuing low-dose aspirin enteric coated is probably prudent. [id number]/[facility] #: [id number] [facility]
--- NOTE | 2017-10-18 17:04 | PN ---
Subjective Date of Service: 10/18/17 Interval History: Continues to c/o of mild shortness of breath. states that breathing is a little better, Denies chest pain or abd pain. Denies n/v/d Family History: Unchanged from Admission Social History: Unchanged from Admission Past Medical History: Unchanged from Admission Objective Active Medications: Aspirin (Aspirin Ec Low Dose*) 81 mg PO DAILY [facility] Last Admin: 10/18/17 07:33 Dose: 81 mg Atorvastatin Calcium (Lipitor*) 40 mg PO 1700 [facility] Last Admin: 10/17/17 18:21 Dose: 40 mg Furosemide (Lasix Tab*) 40 mg PO DAILY [facility] Last Admin: 10/18/17 07:33 Dose: 40 mg Metoprolol Tartrate (Lopressor Tab*) 25 mg PO 0900,2100 [facility] Last Admin: 10/18/17 07:33 Dose: 25 mg Nitroglycerin (Nitroglycerin Tab 0.4 Mg*) 0.4 mg SL Q5M PRN PRN Reason: ANGINA Omeprazole (Prilosec Cap*) 20 mg PO BID AC [facility] Last Admin: 10/18/17 07:33 Dose: 20 mg Spironolactone (Aldactone Tab*) 50 mg PO MoTh@0900 [facility] Last Admin: 10/16/17 16:29 Dose: 50 mg Vital Signs - 8 hr 10/18/17 10/18/17 10/18/17 10:51 12:48 13:11 Temperature 97.7 F 98.5 F 98.5 F Pulse Rate 67 74 76 Respiratory 18 20 20 Rate Blood Pressure 90/48 100/55 102/52 (mmHg) O2 Sat by Pulse 100 98 98 Oximetry Oxygen Devices in Use Now: None, Nasal Cannula Appearance: appears comfortable lying in bed Eyes: No Scleral Icterus Ears/Nose/Mouth/Throat: Clear Oropharnyx, Mucous Membranes Moist Neck: NL Appearance and Movements; NL JVP, Trachea Midline Respiratory: Symmetrical Chest Expansion and Respiratory Effort, Clear to Auscultation, - - diminished in bilat bases Cardiovascular: NL Sounds; No Murmurs; No JVD, No Edema Abdominal: NL Sounds; No Tenderness; No Distention Extremities: No Clubbing, Cyanosis Skin: No Rash or Ulcers, - - lower ext with edema Neurological: Alert and Oriented x 3 Nutrition: Taking PO's Result Diagrams: 10/18/17 05:23 10/18/17 05:23 Assess/Plan/Problems-Billing Assessment: Mr. Ashford is a 77 yo male with a history of cryptogenic cirrhosis, hyperlipidemia, arthritis, BPH and recent [place] with bare metal stenting on . Admitted for melena, Seen by GI and was scheduled for EDG today. - Patient Problems (1) GI bleed Current Visit: Yes Status: Acute Code(s): K92.2 - GASTROINTESTINAL HEMORRHAGE, UNSPECIFIED SNOMED Code(s): 26017095 Comment: GI consulted omeprazole 20 mg BID continue to trend H/H 8.02/22 today will transfuse to 1 unit of PRBC's as rcommended h/h close to 05/29 since a recent history of WI (2) Ascites Current Visit: No Status: Acute Code(s): R18.8 - OTHER ASCITES SNOMED Code (s): 431084805 Comment: States that he biweekly paracentesis due monday but states that the plan is to wait 3 weeks this time. abd rounded~ non tender (3) CAD (coronary artery disease) Current Visit: No Status: Chronic Code(s): I25.10 - ATHSCL HEART DISEASE OF [place] CORONARY ARTERY W/O ANG PCTRS SNOMED Code(s): 89327304 Comment: Patient with recent [place] and Stenting 09/28/17 Denies chest pain After discussion with Dr. Olmedo will change to plavix 75 mg po start tomorrow ~ stop ASA Continue metoprolol (4) Anemia Current Visit: Yes Status: Acute Code(s): D64.9 - ANEMIA, UNSPECIFIED SNOMED Code(s): 269541550 Comment: H/H 7.02/18 Will tranfuse to goal of 1030 per cardiology ~ d/t recent [place] and cardiac disease Tranfuse 1 units of PRBC today Repeat CBC in AM (5) CKD (chronic kidney disease) Current Visit: No Status: Chronic Code(s): N18.9 - CHRONIC KIDNEY DISEASE, UNSPECIFIED SNOMED Code(s): 122204557 Comment: - at baseline - Continue to monitor and limit nephrotoxic agents (6) HLD (hyperlipidemia) Current Visit: No Status: Chronic Code(s): E78.5 - HYPERLIPIDEMIA, UNSPECIFIED SNOMED Code(s): 24887540 Comment: - Continue atorvastain (7) DVT prophylaxis Current Visit: No Status: Acute Code(s): BHK5344 - SNOMED Code(s): 390962474 Comment: - SCDs (8) Full code status Current Visit: No Status: Acute Code(s): Z78.9 - OTHER SPECIFIED HEALTH STATUS SNOMED Code(s): 399284808 Status and Disposition: will discharge when able~ poss tomorrow
[2017-10-18] MEDS: Atorvastatin* 40 MG TAB PO SCH (17:27)
[2017-10-18] MEDS ORDERED: CMCS: Pantoprazole TAB (NF) 40 MG TAB PO SCH (18:00)
[2017-10-19 05:11] LABS: ABS Basophils 0 10^3/ul (0-0.2); ABS Eosinophils 0.1 10^3/ul (0-0.6); ABS Lymphocytes 0.6 10^3/ul (1.0-4.8); ABS Monocytes 0.3 10^3/ul (0-0.8); ABS Neutrophils 2.8 10^3/ul (1.5-7.7); ABS Nucleated RBC 0 10^3/ul; Eosinophil % 2.1 % (0-6); Hematocrit 27 % (42-52); Lymphocyte % 15.4 % (25-47); Mean Corpuscular HGB Conc 34 g/dl (31-36); Mean Corpuscular Hemoglobin 29 pg (27-31); Mean Corpuscular Volume 85 fL (80-94); Mean Platelet Volume 8.4 um3 (7.4-10.4); Nucleated Red Blood Cells % 0.1; Platelet Count 181 10^3/ul (150-450); Red Blood Count 3.16 10^6/ul (4.0-5.4); Red Cell Distribution Width 17 % (10.5-15); White Blood Count 3.9 10^3/ul (3.5-10.8)
[2017-10-19 05:28] LABS: EGFR Non-African American 34.3 (>60)
[2017-10-19] MEDS: Spironolactone TAB* 25 MG PO SCH (08:10)
[2017-10-19] MEDS: Furosemide TAB* 40 MG PO SCH (08:10)
[2017-10-19] MEDS: Metoprolol Tartrate TAB* 25 MG PO SCH (08:11)
[2017-10-19] MEDS ORDERED: Clopidogrel TAB* 75 MG PO SCH (09:00)
[2017-10-19] MEDS ORDERED: CMCS: Pantoprazole TAB (NF) 40 MG TAB PO SCH (09:00)
--- NOTE | 2017-10-19 10:33 | PN ---
Subjective Date of Service: 10/19/17 Interval History: C/o right thigh pain. Denies chest pain or shortness of breath. Denies abd pain, n/v/d. no BM for 2 days. Family History: Unchanged from Admission Social History: Unchanged from Admission Past Medical History: Unchanged from Admission Objective Active Medications: Atorvastatin Calcium (Lipitor*) 40 mg PO 1700 [facility] Last Admin: 10/18/17 17:27 Dose: 40 mg Clopidogrel Bisulfate (Plavix Tab*) 75 mg PO DAILY [facility] Last Admin: 10/19/17 08:10 Dose: 75 mg Furosemide (Lasix Tab*) 40 mg PO DAILY [facility] Last Admin: 10/19/17 08:10 Dose: 40 mg Metoprolol Tartrate (Lopressor Tab*) 25 mg PO 0900,2100 [facility] Last Admin: 10/19/17 08:11 Dose: 25 mg Nitroglycerin (Nitroglycerin Tab 0.4 Mg*) 0.4 mg SL Q5M PRN PRN Reason: ANGINA Pantoprazole Sodium (Protonix Tab (Nf)) 40 mg PO BID [facility] Last Admin: 10/19/17 08:10 Dose: 40 mg Spironolactone (Aldactone Tab*) 50 mg PO MoTh@0900 [facility] Last Admin: 10/19/17 08:10 Dose: 50 mg Vital Signs - 8 hr 10/19/17 10/19/17 10/19/17 03:44 07:47 08:00 Temperature 98.7 F 98.9 F Pulse Rate 83 79 Respiratory 20 18 18 Rate Blood Pressure 104/53 106/63 (mmHg) O2 Sat by Pulse 100 96 Oximetry Oxygen Devices in Use Now: None Appearance: appers comfortable sitting in bed Eyes: No Scleral Icterus Ears/Nose/Mouth/Throat: Clear Oropharnyx, Mucous Membranes Moist Neck: NL Appearance and Movements; NL JVP, Trachea Midline Respiratory: Symmetrical Chest Expansion and Respiratory Effort, Clear to Auscultation - diminished at the bases bilat Cardiovascular: NL Sounds; No Murmurs; No JVD Abdominal: NL Sounds; No Tenderness; No Distention, - - Rounded, non tender, BS +x4 firm Extremities: No Clubbing, Cyanosis - lower leg with +1 edema Skin: No Rash or Ulcers Neurological: Alert and Oriented x 3 Nutrition: Taking PO's Result Diagrams: 10/19/17 04:39 10/19/17 04:39 Assess/Plan/Problems-Billing Assessment: Mr. Ashford is a 77 yo male with a history of cryptogenic cirrhosis, hyperlipidemia, arthritis, BPH and recent [place] with bare metal stenting on . Admitted for melena, Seen by GI and was scheduled for EDG today. - Patient Problems (1) GI bleed Status: Acute Code(s): K92.2 - GASTROINTESTINAL HEMORRHAGE, UNSPECIFIED SNOMED Code(s): 61934213 Comment: GI consulted omeprazole 20 mg BID continue to trend H/H 04/26 today Patient is asymptomatic~ shortness of breath has improved ~ will hold on transfusing PRBC's today (2) Ascites Status: Acute Code(s): R18.8 - OTHER ASCITES SNOMED Code(s): 687169153 Comment: States that he biweekly paracentesis due monday, pt is scheduled outpt with Dr. Crain tomorrow at 920am abd rounded, firm~ non tender (3) CAD (coronary artery disease) Status: Chronic Code(s): I25.10 - ATHSCL HEART DISEASE OF [place] CORONARY ARTERY W/O ANG PCTRS SNOMED Code(s): 50912444 Comment: Patient with recent [place] and Stenting 09/28/17 Denies chest pain After discussion with Dr. Olmedo will change to plavix 75 mg po ~ stop ASA Continue metoprolol (4) Anemia Status: Acute Code(s): D64.9 - ANEMIA, UNSPECIFIED SNOMED Code(s): 732114040 Comment: H/H 04/26 Will tranfuse to goal of 10/30 per cardiology ~ d/t recent [place] and cardiac disease ~Patient is asymptomactic today, no shortness of breath or chest pain, staets that he feels less fatigued. Repeat CBC in AM (5) Pain in right thigh Status: Acute Code(s): M79.651 - PAIN IN RIGHT THIGH SNOMED Code(s): 21716709 Comment: ~will get venous ultrasound today to r/o DVT- patient not blood thinners for DVT prop d/t GI bleed ~ venous ultrasound negative for DVT (6) CKD (chronic kidney disease) Status: Chronic Code(s): N18.9 - CHRONIC KIDNEY DISEASE, UNSPECIFIED SNOMED Code(s): 994365326 Comment: - at baseline - Continue to monitor and limit nephrotoxic agents (7) HLD (hyperlipidemia) Status: Chronic Code(s): E78.5 - HYPERLIPIDEMIA, UNSPECIFIED SNOMED Code(s) : 58954680 Comment: - Continue atorvastain (8) DVT prophylaxis Status: Acute Code(s): YQM4541 - SNOMED Code(s): 903579574 Comment: - SCDs (9) Full code status Status: Acute Code(s): Z78.9 - OTHER SPECIFIED HEALTH STATUS SNOMED Code(s) : 534558011 Status and Disposition: will discharge when able~ poss tomorrow
--- NOTE | 2017-10-19 11:51 | RAD ---
INDICATION: RIGHT calf pain and bilateral lower extremity edema. COMPARISON: September 27, 2017 TECHNIQUE: Villagran scale, color Doppler, and spectral analysis of the deep veins of the BILATERAL lower extremities. Vessel compression, phasicity, and augmentation assessed. REPORT: The RIGHT common femoral, great saphenous, profunda femoral, femoral, popliteal, peroneal, and posterior tibial veins are patent. The LEFT common femoral, great saphenous, profunda femoral, femoral, popliteal, peroneal, and posterior tibial veins are patent. IMPRESSION: Negative for RIGHT or LEFT lower extremity DVT.
[2017-10-19 12:26] VITALS: BP 106/53
--- NOTE | 2017-10-20 06:45 | DS ---
CC: Dr. Johnston; Dr. Guillen * DISCHARGE SUMMARY: DATE OF ADMISSION: 10/16/17 DATE OF DISCHARGE: 10/19/17 PROVIDER: Sima Barajas NP ATTENDING PHYSICIAN: Dr. Luis Manuel Edwards * (dictated by Sima Barajas NP) PRIMARY CARE PROVIDER: Dr. Johnston. PRIMARY DIAGNOSIS: Gastrointestinal bleed, suspect secondary to Brilinta. SECONDARY DIAGNOSES: 1. Coronary artery disease. 2. Recent myocardial infarction, with bare-metal stenting on 09/28/17. 3. Cryptogenic cirrhosis with biweekly paracenteses. 4. History of supraventricular tachycardia. 5. History of pacemaker placement. 6. Hyperlipidemia. 7. Benign prostatic hyperplasia. 8. Chronic kidney disease, stage 2. STUDIES COMPLETED WHILE IN THE HOSPITAL: He had a chest x-ray done on . Radiologist's impression: No active cardiopulmonary disease. He had a venous Doppler done on 10/19/17 for complaints of right upper thigh pain. Radiologist's impression: Negative for right and left lower extremity DVTs. He had an upper endoscopy completed, which showed several nonbleeding ulcerations in the stomach. DISCHARGE MEDICATIONS: New home medications: 1. Plavix 75 mg p.o. daily. Continued home medications: 1. Atorvastatin 40 mg p.o. daily. 2. Furosemide 40 mg p.o. daily. 3. Metoprolol 25 mg b.i.d. 4. Nitroglycerin 0.4 mg sublingual q.5 minutes as needed for chest pain. 5. Pantoprazole 40 mg p.o. b.i.d. 6. Aldactone 50 mg p.o. Monday and . He will discontinue Brilinta. He will also discontinue aspirin. HISTORY OF PRESENT ILLNESS AND HOSPITAL COURSE: Mr. Ashford is a pleasant 77- year- old male, who had a recent hospitalization for non-STEMI with bare-metal stenting. The patient was at home and was scheduled for usual followup. He presented to Dr. Johnston following blood work, which showed a hemoglobin of 7. The patient also has stool sample at that time. However, the patient was extremely symptomatic with fatigue and shortness of breath for a couple days. He denied any chest pain; however, he does note that he had 2 units of blood and 2 units of albumin [address] Dr[address] Guillen's when he had his last paracentesis. The patient does have a history of cryptogenic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 liver for which he gets paracenteses every 2 weeks; however, the patient again was not feeling well and was sent to the emergency department for further evaluation of his symptomatic anemia, which was felt secondary to his Brilinta. During his hospitalization, he had an upper endoscopy, which showed no bleeding. He did show several ulcerations in the stomach. His Brilinta was stopped. He also was transfused 4 units of packed red blood cells while in the hospital. His H and H on discharge today was 9.0 and hematocrit was 27. He did complain of some right thigh pain during examination this morning. A venous ultrasound was ordered and was negative for DVT. The patient denies any other symptoms. He reports that he is feeling better, that his shortness of breath is improved, and that he feels like he has more energy and not as fatigued as when he was admitted. Mr. Ashford is stable for discharge home today. Vital signs are as follows: Temperature was 97.4, blood pressure 106/53, heart rate was 71, respirations 18, O2 saturation on room air was 99%. Please refer to the progress note from 10/19/17 for full physical exam, assessment. DISCHARGE PLAN: 1. Mr. Ashford will be discharged back home today. 2. Activity: As tolerated. 3. For his gastrointestinal bleed, he should continue pantoprazole 40 mg b.i.d. He was instructed to discontinue Brilinta and aspirin and that he would restart Plavix 75 mg p.o. daily as this is less irritating to the stomach. The patient was advised to report any dark or tarry stools. 4. Cryptogenic cirrhosis. He should proceed with his paracentesis that is scheduled for 09:[address] Guillen's office. It was recommended that he get a repeat CBC tomorrow to check the status of his hemoglobin and hematocrit. 5. The patient was advised to follow up with Dr. Guillen tomorrow at 9:20 a.m. He is to follow up with his primary care provider for a repeat CBC on Monday and another repeat CBC on Monday. This is a summary of his hospitalization. For further details, please see the entire medical record. TIME SPENT: Time spent on this discharge was approximately 60 minutes, greater than half the time was spent with the patient discussing discharge plans and instructions. CONDITION AT DISCHARGE: Stable. SIMA BARAJAS NP [id number]/[facility] #: [id number] [place]
--- NOTE | 2017-10-21 13:54 | ED ---
Roxy Lal Edward, scribed for Ravinder Decker MD on 10/16/17 at 1206 . GI/ HPI - HPI Summary HPI Summary: 77 y/o male presents to the ED c/o dark stools. Pt sent to the ED by Dr. Charles following blood work that showed hbg of 7. Pt also had a stool sample done by Dr. Charles today. Sx not aggravated or alleviated by anything. Pt also c/o fatigue and pressure down the arms. Associated sx: SOB 2 days ago, resolved. Denies CP. Pt had a blood transfusion on October 06, [address] Guillen. Pt admitted and had paracentesis done after pacemaker battery replacement, d/c on September 29, 2017. - History of Current Complaint Chief Complaint: EDGIBleed Time Seen by Provider: 10/16/17 11:58 Stated Complaint: ANEMIA-DR SENT Hx Obtained From: Patient Onset/Duration: Still Present Pain Intensity: 0 Pain Characteristics: Pressure - down arms Associated Signs and Symptoms: Positive: Other: - dark stools, pressure down arms, fatigue. Negative: Chest Pain - Additional Pertinent History Primary Care Physician: [id number] - Allergy/Home Medications Allergies/Adverse Reactions: Allergies Allergy/AdvReac Type Severity Reaction Status Date / Time horse dander Allergy Swelling Verified 10/16/17 11:44 Horse/Equine Containing Allergy Hives Verified 10/16/17 11:44 Products latex Allergy See Comment Verified 10/16/17 11:44 midodrine Allergy Unknown Verified 10/16/17 11:44 Reaction Details HORSE SERUM Allergy Severe Swelling, Uncoded 10/16/17 11:44 hives Home Medications: Home Medications Furosemide TAB* [Lasix TAB*] 40 mg PO DAILY 10/16/17 [History Confirmed 10/16/17 ] Pantoprazole TAB (NF) [Protonix TAB (NF)] 40 mg PO BID 10/16/17 [History Confirmed 10/16/17] Spironolactone TAB* [Aldactone TAB 25 MG*] 50 mg PO .MON AND THURS 10/16/17 [ History Confirmed 10/16/17] PMH/Surg Hx/FS Hx/Imm Hx Previously Healthy: No Cardiovascular History: Reports: Hx Angina, Hx Coronary Artery Disease, Hx Hypertension, Hx Pacemaker/ICD - pacemaker Respiratory History: Reports: Hx Sleep Apnea - current CPAP user GI History: Reports: Hx Cirrhosis, Hx Gastroesophageal Reflux Disease, Hx Irritable Bowel History: Reports: Other Problems/Disorders - weak bladder s/p bladder cancer Musculoskeletal History: Denies: Hx Rheumatoid Arthritis Sensory History: Reports: Hx Contacts or Glasses Denies: Hx Hearing Aid Opthamlomology History: Reports: Hx Contacts or Glasses Neurological History: Denies: Hx Headaches, Hx Seizures, Hx Transient Ischemic Attacks (TIA) - Cancer History Cancer Type, Location and Year: bladder cancer - Surgical History Surgery Procedure, Year, and Place: cataract surgery with lens implants bilat eyes. hammer toe repair bilat feet. appendectomy. cholecystectomy. paracentesis Hx Anesthesia Reactions: No Infectious Disease History: No Infectious Disease History: Denies: Traveled Outside the [place] in Last 30 Days - Family History Known Family History: Positive: Cardiac Disease Negative: Hypertension, Diabetes - Social History Alcohol Use: None Alcohol Amount: none since August when issues started Substance Use Type: Reports: None Hx Tobacco Use: No Smoking Status (MU): Former Smoker Have You Smoked in the Last Year: No Review of Systems Positive: Fatigue. Negative: Fever, Chills Negative: Erythema Negative: Sore Throat Negative: Chest Pain Positive: Shortness Of Breath. Negative: Cough Positive: Other - dark stools. Negative: Abdominal Pain, Vomiting, Nausea Negative: dysuria, hematuria Negative: Myalgia, Edema Negative: Rash Neurological: Other - no dizziness All Other Systems Reviewed And Are Negative: Yes Physical Exam - Summary Physical Exam Summary: Constitutional: Well-developed, Well-nourished, Alert. (-) Distressed Skin: Warm, Dry HENT: Normocephalic; Atraumatic Eyes: Conjunctiva normal Neck: Musculoskeletal ROM normal neck. (-) JVD, (-) Stridor, (-) Tracheal deviation Cardio: Rhythm regular, rate normal, Heart sounds normal; Intact distal pulses; The pedal pulses are 2+ and symmetric. Radial pulses are 2+ and symmetric. (-) Murmur Pulmonary/Chest wall: Effort normal. (-) Respiratory distress, (-) Wheezes, (-) Rales Abd: Soft, (-) Tenderness, (-) Distension, (-) Guarding, (-) Rebound. (+) Ascites. Musculoskeletal: (-) Edema Lymph: (-) Cervical adenopathy Neuro: Alert, Oriented x3 Psych: Mood and affect Normal Triage Information Reviewed: Yes Vital Signs On Initial Exam: Initial Vitals Temp Pulse Resp BP Pulse Ox 96.6 F 82 20 108/69 100 10/16/17 11:41 10/16/17 11:41 10/16/17 11:41 10/16/17 11:41 10/16/17 11:41 Vital Signs Reviewed: Yes Diagnostics - Vital Signs Vital Signs Temp Pulse Resp BP Pulse Ox 10/16/17 11:41 96.6 F 82 20 108/69 100 - Laboratory Lab Results: Lab Results 10/16/17 10/16/17 10/16/17 Range/Units 11:55 11:55 11:55 WBC 8.3 (3.5-10.8) 10^3/ul RBC 2.93 L (4.0-5.4) 10^6/ul Hgb 8.4 L (14.0-18.0) g/dl Hct 26 L (42-52) % MCV 87 (80-94) fL MCH 29 (27-31) pg MCHC 33 (31-36) g/dl RDW 18 H (10.5-15) % Plt Count 330 (150-450) 10^3/ul MPV 9 (7.4-10.4) um3 Neut % (Auto) 81.6 (38-83) % Lymph % (Auto) 10.6 L (25-47) % [place] % (Auto) 6.8 (0-7) % Eos % (Auto) 0.2 (0-6) % Baso % (Auto) 0.8 (0-2) % Absolute Neuts (auto) 6.8 (1.5-7.7) 10^3/ul Absolute Lymphs (auto) 0.9 L (1.0-4.8) 10^3/ul Absolute Monos (auto) 0.6 (0-0.8) 10^3/ul Absolute Eos (auto) 0 (0-0.6) 10^3/ul Absolute Basos (auto) 0.1 (0-0.2) 10^3/ul Absolute Nucleated RBC 0 10^3/ul Nucleated RBC % 0.1 INR (Anticoag Therapy) 0.89 (0.77-1.02) APTT 29.0 (26.0-36.3) seconds Sodium 134 (133-145) mmol/L Potassium TNP Chloride 105 (101-111) mmol/L Carbon Dioxide 22 (22-32) mmol/L Anion Gap 7 (2-11) mmol/L BUN 60 H (6-24) mg/dL Creatinine 1.95 H (0.67-1.17) mg/dL Est GFR ( Amer) 43.3 (>60) Est GFR (Non-Af Amer) 33.7 (>60) BUN/Creatinine Ratio 30.8 H (8-20) Glucose 117 H (70-100) mg/dL Calcium 7.9 L (8.6-10.3) mg/dL Total Bilirubin 0.40 (0.2-1.0) mg/dL AST TNP ALT 18 (7-52) U/L Alkaline Phosphatase 109 H (34-104) U/L Total Protein 5.9 L (6.4-8.9) g/dL Albumin 2.7 L (3.2-5.2) g/dL Globulin 3.2 (2-4) g/dL Albumin/Globulin Ratio 0.8 L (1-3) Blood Type Antibody Screen Crossmatch 10/16/17 10/16/17 Range/Units 11:55 13:18 WBC (3.5-10.8) 10^3/ul RBC (4.0-5.4) 10^6/ul Hgb (14.0-18.0) g/dl Hct (42-52) % MCV (80-94) fL MCH (27-31) pg MCHC (31-36) g/dl RDW (10.5-15) % Plt Count (150-450) 10^3/ul MPV (7.4-10.4) um3 Neut % (Auto) (38-83) % Lymph % (Auto) (25-47) % [place] % (Auto) (0-7) % Eos % (Auto) (0-6) % Baso % (Auto) (0-2) % Absolute Neuts (auto) (1.5-7.7) 10^3/ul Absolute Lymphs (auto) (1.0-4.8) 10^3/ul Absolute Monos (auto) (0-0.8) 10^3/ul Absolute Eos (auto) (0-0.6) 10^3/ul Absolute Basos (auto) (0-0.2) 10^3/ul Absolute Nucleated RBC 10^3/ul Nucleated RBC % INR (Anticoag Therapy) (0.77-1.02) APTT (26.0-36.3) seconds Sodium (133-145) mmol/L Potassium 4.4 Chloride (101-111) mmol/L Carbon Dioxide (22-32) mmol/L Anion Gap (2-11) mmol/L BUN (6-24) mg/dL Creatinine (0.67-1.17) mg/dL Est GFR ( Amer) (>60) Est GFR (Non-Af Amer) (>60) BUN/Creatinine Ratio (8-20) Glucose (70-100) mg/dL Calcium (8.6-10.3) mg/dL Total Bilirubin (0.2-1.0) mg/dL AST 21 ALT (7-52) U/L Alkaline Phosphatase (34-104) U/L Total Protein (6.4-8.9) g/dL Albumin (3.2-5.2) g/dL Globulin (2-4) g/dL Albumin/Globulin Ratio (1-3) Blood Type A Positive Antibody Screen Negative Crossmatch See Detail Result Diagrams: 10/19/17 04:39 10/19/17 04:39 Lab Statement: Any lab studies that have been ordered have been reviewed, and results considered in the medical decision making process. - Radiology CXR Xray Interpretation: No Acute Changes - No active cardiopulmonary disease noted. - EKG 1 EKG Interpretation: 12:11 - Ventricular-paced complexes @ 79 BPM. No STEMI 2 EKG Interpretation: 13:07 - Paced @ 75 BPM. No STEMI. Re-Evaluation - Re-Evaluation 13:05 Re-Evaluation Time: 13:05 Comment: Pt is now hypotensive and c/o SOB. Reapplied O2, will be given 1 L bolus of saline GIGU Course/Dx - Course Assessment/Plan: 77 y/o male presents to the ED c/o dark stools. Pt sent to the ED by Dr. Charles following blood work that showed hbg of 7. Pt also had a stool sample done by Dr. Breimann today. Sx not aggravated or alleviated by anything. Pt also c/o fatigue and pressure down the arms. Associated sx: SOB 2 days ago, resolved. Denies CP. Pt had a blood transfusion on October 06, [address] Guillen. Pt admitted and had paracentesis done after pacemaker battery replacement, d/c on September 29, 2017. EKG - 12:11 - Ventricular-paced complexes @ 79 BPM. No STEMI. EKG 2 - 13:07 - Paced @ 75 BPM. No STEMI. CXR shows no active cardiopulmonary disease noted. Discussed with Dr. Cano, who accepted the pt for admission. Pt is agreeable with plan. - Diagnoses Provider Diagnoses: Symptomatic anemia, GI bleed - Physician Notifications Discussed Care Of Patient With: Gertrudis Cano Time Discussed With Above Provider: 13:04 Instructed by Provider To: Admit As Inpatient - Critical Care Time Critical Care Time: 30-74 min - 45 minutes Discharge - Sign-Out/Discharge Documenting (check all that apply): Discharge - admit - Discharge Plan Condition: Stable Disposition: ADMITTED TO [facility] - Billing Disposition and Condition Condition: STABLE Disposition: HOSP-[facility] [place] The documentation as recorded by the Roxy carvajal Edward accurately reflects the service I personally performed and the decisions made by , Ravinder Decker MD.
== END 2017-10-19 14:13 | disposition home or self-care (01) | DRG 377 ==
LOC: ED 11:34 → MEDTELE 14:28
PROVIDERS: ADMIT Hospitalist; ATTEND Internal Medicine
PROC: 30233N1 Transfusion of Nonautologous Red Blood Cells into Peripheral Vein, Percutaneous Approach (ICD-10-PCS; 2017-10-16)
PROC: 3E1G88Z Irrigation of Upper GI using Irrigating Substance, Via Natural or Artificial Opening Endoscopic (ICD-10-PCS; principal; 2017-10-17)
DX: K92.1 Melena (principal); I21.4 Non-ST elevation (NSTEMI) myocardial infarction; K76.6 Portal hypertension; R18.8 Other ascites; D63.1 Anemia in chronic kidney disease; K74.69 Other cirrhosis of liver; E78.5 Hyperlipidemia, unspecified; G47.30 Sleep apnea, unspecified; I25.10 Atherosclerotic heart disease of native coronary artery without angina pectoris; K21.9 Gastro-esophageal reflux disease without esophagitis; K58.9 Irritable bowel syndrome, unspecified; Z96.1 Presence of intraocular lens; M19.90 Unspecified osteoarthritis, unspecified site; N40.0 Benign prostatic hyperplasia without lower urinary tract symptoms; N18.2 Chronic kidney disease, stage 2 (mild); I12.9 Hypertensive chronic kidney disease with stage 1 through stage 4 chronic kidney disease, or unspecified chronic kidney disease; T45.525A Adverse effect of antithrombotic drugs, initial encounter; K44.9 Diaphragmatic hernia without obstruction or gangrene; K25.4 Chronic or unspecified gastric ulcer with hemorrhage; M79.651 Pain in right thigh; K31.89 Other diseases of stomach and duodenum; Z91.040 Latex allergy status; Z88.8 Allergy status to other drugs, medicaments and biological substances; Z91.09 Other allergy status, other than to drugs and biological substances; Z85.51 Personal history of malignant neoplasm of bladder; Z95.0 Presence of cardiac pacemaker; Z98.42 Cataract extraction status, left eye; Z98.41 Cataract extraction status, right eye; Z90.49 Acquired absence of other specified parts of digestive tract; Z82.49 Family history of ischemic heart disease and other diseases of the circulatory system; Z87.891 Personal history of nicotine dependence; I25.2 Old myocardial infarction; Z95.5 Presence of coronary angioplasty implant and graft; Y92.009 Unspecified place in unspecified non-institutional (private) residence as the place of occurrence of the external cause; Z80.52 Family history of malignant neoplasm of bladder; Z80.0 Family history of malignant neoplasm of digestive organs; Z79.02 Long term (current) use of antithrombotics/antiplatelets
CPT/HCPCS: 36415; 71045; 80048; 80053; 85014; 85018; 85025; 85610; 85730; 86850; 86900; 86901; 86922; 93005; 93970; 99156; 99157; 99284; A9270-GY; J2250; J3010; P9040

== ENCOUNTER 2018-04-19 09:52 | Inpatient (IN) | payer MEDICARE ==
--- OUTSIDE RECORDS SUMMARY | 2018-04-19 10:10 | XMS REPORT ---
:1940 External Reference #:[id number] Author Organization [facility] Address [address] [place] [address] [place] [address] Phone [phone] Care Team Providers Name Role Phone Franklyn Johnston MD Primary Care Physician Unavailable Payers Type Date Identification Numbers Payment Subscriber Provider Health Maintenance Effective: Policy Number: Medicare Rolly Ashford [facility] ([facility]) 07/31/2016 [id number] Ppo Group Number: [id number] [address] [address] PayID: [id number] SWATI Marcus [id number] Health Maintenance Effective: Policy Number: Medicare Rolly Ugalde ([facility]) 07/31/2013 [id number] [facility] [place] Expires: 07/30/2014 Group Number: [id number] [address] [address] Group Name: Expires 07/30/14 SWATI Marcus [address]251 PayID: [id number] Medigap Part B Effective: 01/28/2010 Policy Number: [facility] Diya Ashford [id number] Expires: 07/30/2013 PayID: [id number] [address] [address] SWATI Marcus [id number] Medigap Part B Effective: 12/29/2006 Policy Number: Medicare Diya Jj Ulisesmanoj [id number] Expires: 07/30/2013 PayID: [id number] [address] [place] [address] Problems Date Description Provider Status Onset: 07/09/2013 Sprain of foot Bryan Dee M.D. Active Onset: 06/30/2014 Obstructive sleep apnea syndrome Miriam Anguiano MD Active Onset: 03/01/2016 Gastroesophageal reflux disease Miriam Anguiano MD Active Onset: 03/01/2016 Morbid obesity Miriam Anguiano MD Active Onset: 10/03/2017 Cardiac pacemaker in situ Angelic Olmedo M.D. Active Onset: 10/03/2017 Athscl heart disease of [place] Angelic Olmedo M.D. 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 Quit at age 62yrs Recreational Drug Use Denies Drug Use Daily Caffeine coffee reg one cup every three days Exercise Type/Frequency Does not exercise Allergies, Adverse Reactions, Alerts Date Description Reaction Status Severity Comments 07/09/2013 Latex Contact dermatitis active 07/09/2013 Adhesive Tape active 02/28/2017 Horse Serum active Medications Medication Date Status Form Strength Qnty SIG Indications Ordering Provider Rosuvastatin 01/10/ Active Tablets 40mg 90tab 1 by mouth Angelic Calcium 2018 s every day Clarita Olmedo Aspir-81 12/07/ Active 81mg 100un 1 tablet po I25.119 Angelic 2018 its daily Clarita Olmedo Metoprolol 09/29/ Active Tablets 25mg 90tab 1/2 by Angelic Tartrate 2018 s mouth twice Shara, a day M.D. Nitroglycerin / Active Tablets 0.4mg 30tab 1 sl as Herman 0000 Sub s needed F. Mauser, angina M.D. Pantoprazole / Active Tablets 40mg 1 by mouth Unknown Sodium 0000 DR twice one time per day Clopidogrel / Active Tablets 75mg 1 by mouth Unknown Bisulfate 0000 one time per day Acetaminophen / Active Tablets 325mg 2 tablets Unknown 0000 by mouth every 6 hours as needed for pain/fever Melatonin / Active Tablets 3mg 1 by mouth Unknown 0000 1 to 2 hours before bed as needed Isosorbide 02/27/ Hx Tablets 30mg 30tab Take / I20.9 Yves S. Mononitrate ER 2018 - ER 24HR s tablet by Rajesh, 04/06/ mouth every FACC 2017 Atorvastatin 09/29/ Hx Tablets 40mg 90tab 1 by mouth Angelic Calcium 2018 - s every day [place], 01/10/ M.D. 2017 Brilinta 09/29/ Hx Tablets 90mg 180ta 1 tab by Angelic 2018 - bs mouth twice [place], 11/06/ a day M.D. 2017 Hydrocodone 09/16/ Hx Tablets 5-300mg 14tab 1 tab by Jamilah Parrishartrate/Aceta 2017 s mouth every B. 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 minophen 4 hours as [place], needed pain OPERATING [employer]OM SURGICAL TECHNOLOGIST Zantac 03/01/ Hx Tablets 300mg 90tab 1 tab by K21.9 Miriam 2015 - s mouth every MD Annmarie 03/29/ day every 2016 night Lipitor 07/09/ Hx Tablets 80mg 90tab 1 po [facility] Bryan 2013 - s Luiz, 03/29/ M.D. 2016 Losartan /00/ Hx Unknown Potassium 0000 - 2013 Celebrex /00/ Hx 200 daily Unknown 0000 - 2015 Aspirin Ec 00/ Hx 81mg daily Unknown Lo-Dose 0000 - 2017 Losartan 00/00/ Hx Tablets 100mg 1 by mouth Unknown Potassium 0000 every day Lasix 00/ Hx Tablets 40mg 1 by mouth Unknown 0000 - twice per 2017 Aldactone 00/00/ Hx Tablets 50mg 1 by mouth Unknown 0000 - daily 2016 Midodrine HCL 00/ Hx Tablets 5mg 1 po tid Sylvia 0000 - MD Franklyn 2016 Spironolactone 00/ Hx Tablets 50mg 1 tablet po Unknown 0000 - daily ( 09/06/ medication 2018 change since [address] Ward) Plavix / Hx Tablets 75mg 90tab 1 by mouth I25.119 Angelic 0000 - s every day Shara 12/07/ MPolly 2018 Prednisone / Hx Tablets Unknown - 2017 Medications Administered in Office Medication Date Status Form Strength Qnty SIG Indications Ordering Provider Inj, Administered Injection Yves S. Regadenoson, 018 Mena, DO 0.1 MG FACC Technetium TC Administered Injection Yves S. 99M 018 Mena, DO Tetrofosmin, FACC Per Unit Dose Up To 40 Millicuries Influenza,Unsp Administered Injection Unknown ecified 017 Immunizations CPT Code Status Date Vaccine Lot # [id number] Given 05/14/2014 Influenza Virus 3Yrs & Over Vital Signs Date Vital Result Comment 04/06/2018 Height 71 inches 5'11" Weight 208.00 lb Heart Rate 68 /min BP Systolic Sitting 90 mmHg Lue large cuff BP Diastolic Sitting 42 mmHg Lue large cuff BP Systolic Standing 100 mmHg BP Diastolic Standing 70 mmHg Respiratory Rate 16 /min O2 % BldC Oximetry 98 % On Ra BMI (Body Mass Index) 29.0 kg/m2 03/23/2018 Height 71 inches 5'11" Weight 216.00 lb Heart Rate 88 /min BP Systolic Sitting 104 mmHg Lue reg cuff BP Diastolic Sitting 60 mmHg Lue reg cuff BP Systolic Standing 110 mmHg Lue BP Diastolic Standing 64 mmHg Lue Respiratory Rate 16 /min BMI (Body Mass Index) 30.1 kg/m2 Ejection Fraction 60-65% 09/27/17 03/08/2018 Height 71 inches 5'11" Weight 224.00 lb with shoes Heart Rate 100 /min BP Systolic Sitting 92 mmHg Lue reg cuff BP Diastolic Sitting 50 mmHg Lue reg cuff BP Systolic Standing 104 mmHg Lue reg cuff BP Diastolic Standing 60 mmHg Lue reg cuff Respiratory Rate 18 /min BMI (Body Mass Index) 31.2 kg/m2 Ejection Fraction 60-65% date 09/27/17 ECHO 02/27/2018 Height 71 inches 5'11" Weight 210.00 lb with shoes Heart Rate 76 /min BP Systolic Sitting 80 mmHg Lue reg cuff BP Diastolic Sitting 50 mmHg Lue reg cuff BP Systolic Standing 92 mmHg Lue reg cuff BP Diastolic Standing 60 mmHg Lue reg cuff Respiratory Rate 16 /min BMI (Body Mass Index) 29.3 kg/m2 Ejection Fraction 60-65% date 09/27/17 ECHO 02/05/2018 Height 71 inches 5'11" Weight 195.00 lb Heart Rate 60 /min BP Systolic Sitting 98 mmHg BP Diastolic Sitting 52 mmHg Respiratory Rate 18 /min Body Temperature 97.1 F BMI (Body Mass Index) 27.2 kg/m2 12/21/2017 Height 71 inches 5'11" Weight 212.00 lb Heart Rate 76 /min BP Systolic 112 mmHg BP Diastolic 60 mmHg Respiratory Rate 12 /min Pain Level 6 BMI (Body Mass Index) 29.6 kg/m2 12/07/2017 Height 71 inches 5'11" Weight 198.00 lb with shoes Heart Rate 88 /min BP Systolic Sitting 80 mmHg Lue reg cuff BP Diastolic Sitting 50 mmHg Lue reg cuff BP Systolic Standing 96 mmHg Lue reg cuff BP Diastolic Standing 50 mmHg Lue reg cuff Respiratory Rate 16 /min BMI (Body Mass Index) 27.6 kg/m2 Ejection Fraction 60-65% date 09/27/17 ECHO 10/04/2017 Height 71 inches 5'11" Weight 221.00 [...] Test Date Test Result H/L Range Note Lipid Profile (Trig/Chol/HDL) 03/12/2018 Triglycerides 77 mg/dL 1 Cholesterol 142 mg/dL 2 HDL Cholesterol 51.2 mg/dL 3 LDL Cholesterol 75 mg/dL 4 Laboratory test finding 01/05/2018 LDL Cholesterol Direct 111 mg/dL 5 Laboratory test finding 12/29/2017 Creatine Kinase(CK) 16 U/L 10-223 Erythrocyte Sed Rate 97 mm/Hr High 0-40 Comp Metabolic Panel 12/29/2017 Sodium 133 mmol/L Low 139-145 Potassium 4.1 mmol/L 3.5-5.0 Chloride 103 mmol/L 101-111 Co2 Carbon Dioxide 23 mmol/L 22-32 Anion Gap 7 mmol/L 2-11 Glucose 149 mg/dL High 70-100 Blood Urea Nitrogen 43 mg/dL High 6-24 Creatinine 2.06 mg/dL High 0.67-1.17 BUN/Creatinine Ratio 20.9 High 8-20 Calcium 7.9 mg/dL Low 8.6-10.3 Total Protein 6.0 g/dL Low 6.4-8.9 Albumin 2.6 g/dL Low 3.2-5.2 Globulin 3.4 g/dL 2-4 Albumin/Globulin Ratio 0.8 Low 1-3 Total Bilirubin 0.30 mg/dL 0.2-1.0 Alkaline Phosphatase 112 U/L High 34-104 Alt 16 U/L 7-52 Ast 23 U/L 13-39 Egfr Non- 31.6 >60 Egfr 40.7 >60 6 Stool Occult Blood Diag 10/13/2017 Stool Occult Blood, SEE RESULT BELOW 7 Diag Basic Metabolic Panel 10/04/2017 Sodium 132 mmol/L Low 133-145 Potassium 4.6 mmol/L 3.5-5.0 Chloride 104 mmol/L 101-111 Co2 Carbon Dioxide 23 mmol/L 22-32 Anion Gap 5 mmol/L 2-11 Glucose 124 mg/dL High 70-100 Blood Urea Nitrogen 40 mg/dL High 6-24 Creatinine 2.01 mg/dL High 0.67-1.17 BUN/Creatinine Ratio 19.9 8-20 Calcium 7.8 mg/dL Low 8.6-10.3 Egfr Non- 32.5 >60 Egfr 41.9 >60 8 CBC Auto Diff 10/04/2017 White Blood Count [...] Egfr Non- 32.7 >60 Egfr 42.1 >60 9 Basic Metabolic Panel 09/26/2017 Sodium 132 mmol/L Low 133-145 Potassium 5.5 mmol/L High 3.5-5.0 Chloride 103 mmol/L 101-111 Co2 Carbon Dioxide 25 mmol/L 22-32 Anion Gap 4 mmol/L 2-11 Glucose 183 mg/dL High 70-100 Blood Urea Nitrogen 36 mg/dL High 6-24 Creatinine 1.86 mg/dL High 0.67-1.17 BUN/Creatinine Ratio 19.4 8-20 Calcium 8.3 mg/dL Low 8.6-10.3 Egfr Non- 35.6 >60 Egfr 45.8 >60 10 Laboratory test finding 09/26/2017 B-Type Natriuretic Peptide BNP 54 pg/mL 11 Troponin-I (TnI) 0.08 ng/mL High <0.04 12 HIV 1/2 Ag & AB Eval 07/12/2017 HIV-1/-2 Screen, S Negative Negative 13 Laboratory test finding 07/12/2017 Miscellaneous Test See Comment 14 Hepatitis E IgM Antibody Negative Negative 15 Laboratory test finding 07/12/2017 Hepatitis E IgM Antibody Negative Negative 16 Laboratory test finding 07/12/2017 Hepatitis E IgM Antibody Negative Negative 17 Laboratory test finding 07/12/2017 Hepatitis E IgM Antibody Negative Negative 18 Hepatitis E IgG Antibody Negative Negative 19 Laboratory test 07/12/2017 Hepatitis E IgM Negative [...] Negative Negative 25 finding Antibody Laboratory test 07/12/2017 Hepatitis E IgM Negative Negative 26 finding Antibody Laboratory test 07/12/2017 Hepatitis E IgM Negative Negative 27 finding Antibody Laboratory test 07/12/2017 Hepatitis E IgM Negative Negative 28 finding Antibody Laboratory test 07/12/2017 Hepatitis E IgM Negative Negative 29 finding Antibody Laboratory test 07/12/2017 Hepatitis E IgM Negative Negative 30 finding Antibody Laboratory test 07/12/2017 Hepatitis E IgM Negative Negative 31 finding Antibody Laboratory test 07/12/2017 Hepatitis E IgM Negative Negative 32 finding Antibody Laboratory test 12/02/2016 Cytology Non-Nutrition Services Associate SEE RESULT BELOW 33 finding Laboratory test 12/02/2016 Surgical Pathology SEE RESULT BELOW 34 finding Leukemia/Lymphoma 12/02/2016 Path Interpretation 2-8 TNP Flow Marker Path Interpret > 16 Marker TNP Path Interpret 9-15 Marker (SEE NOTE) 35 B-Cell Lymphoma Fish 12/02/2016 FBLP Specimen Bone Marrow FBLP Source Right PIC FBLP Reason for Referral See Comment 36 FBLP Method See Comment 37 FBLP Result Summary Normal FBLP Result See Comment 38 FBLP Result Table See Comment 39 FBLP Interpretation See Comment 40 FBLP Additional Information See Comment 41 FBLP Released By See Comment 42 FBLP Disclaimer See Comment 43 Plasma Cell Profliferative 12/02/2016 Plasma Cell Dis Res Abnormal Disorder Summary Plasma Cell Prolif Specimen Bone Marrow Plasma Cell Prolif Dis Source Right PIC Plasma Cell Referral Reason See Comment 44 Plasma Cell Prolif Dis Method See Comment 45 Plasma Cell Dis Result Table See Comment 46 Plasma Cell Prolif Dis Results See Comment 47 Plasma Cell Dis Interpretation See Comment 48 Plasma Cell Dis Add Info See Comment 49 Plasma Cell Dis Disclaimer See Comment 50 Plasma Cell Dis Released By See Comment 51 Laboratory test 11/04/2016 Surgical Interface SEE RESULT BELOW 52 finding Order CBC Auto Diff 11/04/2016 White [...] Egfr Non- 49.5 >60 Egfr 63.7 >60 53 Laboratory test finding 11/04/2016 Ach Receptor Binding 0.00 nmol/L <= 0.02 54 AB Laboratory test finding 09/27/2016 Surgical Pathology SEE RESULT BELOW 55 Laboratory test finding 09/27/2016 Cytology Non-Nutrition Services Associate SEE RESULT BELOW 56 Body Fluid C&S 05/28/2014 Body Fluid Cult (SEE NOTE) 57 Gram Stain Laboratory test finding 05/28/2014 Fluid Crystals None Seen 58 1 Desirable: <150 Borderline High: 150-199 High: 200-499 Very High: >500 2 Desirable: <200 Borderline High: 200-239 High: >239 3 Low: <40 Desirable: 40-60 High: >60 4 Desirable: <100 Near Optimal: 100-129 Borderline High: 130-159 High: 160-189 Very High: >189 5 Desirable: <100 Near Optimal: 100-129 Borderline High: 130-159 High: 160-189 Very High: >189 6 Because ethnic data is not always readily [...] 15-29 5 Kidney failure <15 (or dialysis) 7 SEE RESULT BELOW Name: DIYA ASHFORD : [address]: Angelic Olmedo MD Acct: [id number] Unit: [id number] AGE: 77 Location: [facility] Re10/13/17 SEX: M Status: REG REF SPEC: [id number] BRAD: 10/13/17-[address] [facility] [address]: Angelic Olmedo MD REQ: [id number] RECD: 10/13/17-1313 STATUS: COMP OTHR DR: Franklyn Johnston MD _ SOURCE: STOOL SPDESC: ORDERED: Occult Bl, Diag Procedure Result Reported Site Stool Occult Blood (1) Final 10/13/17- 1415 ML Stool Occult Blood Positive Collection Date (1) 10/13/17 * ML - Main Lab . END OF REPORT DEPARTMENT OF PATHOLOGY, [address] [place] [address] Favian Templeton M.D. Director [facility] # [id number] 8 Because ethnic data is not always readily [...] 15-29 5 Kidney failure <15 (or dialysis) 9 Because ethnic data is not always readily [...] 15-29 5 Kidney failure <15 (or dialysis) 10 Because ethnic data is not always readily [...] 15-29 5 Kidney failure <15 (or dialysis) 11 >100 to <200 pg/mL: likely compensated congestive heart failure (CHF) 200 to 400 pg/mL: likely moderate CHF >400 pg/mL: likely moderate to severe CHF [address] Moreno by [id number] at 1734 on 09/26/17. Results read back accurately. 13 Negative result does not rule out HIV infection. If acute HIV infection is suspected in a high-risk individual, submit plasma specimen for HIV-1 RNA quantification test (HIVDQ) and/or HIV-2 DNA/RNA test (FHV2Q). Test Performed by: [facility] [address] [place] [address] 14 Test Result Flag Unit RefValue Strongyloides Ab, IgG, S Negative Negative No detectable levels of IgG antibodies to Strongyloides. Repeat testing in 1-2 weeks if clinically indicated. Test Performed by: [place] [address] [place] [address] 15 If clinical suspicion persists, submit new specimen for retesting in 1 to 2 weeks. Test Performed by: [place] [address] 16 If clinical suspicion persists, submit new specimen for retesting in 1 to 2 weeks. Test Performed by: [place] [address] 17 If clinical suspicion persists, submit new specimen for retesting in 1 to 2 weeks. Test Performed by: [place] [address] 18 If clinical suspicion persists, submit new specimen for retesting in 1 to 2 weeks. Test Performed by: [place] [address] 19 Test Performed by: [place] [address] 20 If clinical suspicion persists, submit new specimen for retesting in 1 to 2 weeks. Test Performed by: [place] [address] 21 If clinical suspicion persists, submit new specimen for retesting in 1 to 2 weeks. Test Performed by: [place] [address] 22 If clinical suspicion persists, submit new specimen for retesting in 1 to 2 weeks. Test Performed by: [place] [address] 23 If clinical suspicion persists, submit new specimen for retesting in 1 to 2 weeks. Test Performed by: [facility] [address] [employer] [place] [address] 24 If clinical suspicion persists, submit new specimen for retesting in 1 to 2 weeks. Test Performed by: [place] [address] 25 If clinical suspicion persists, submit new specimen for retesting in 1 to 2 weeks. Test Performed by: [facility] [place] [address] 26 If clinical suspicion persists, submit new specimen for retesting in 1 to 2 weeks. Test Performed by: [facility] [address] 27 If clinical suspicion persists, submit new specimen for retesting in 1 to 2 weeks. Test Performed by: [facility] [address] 28 If clinical suspicion persists, submit new specimen for retesting in 1 to 2 weeks. Test Performed by: [facility] [address] 29 If clinical suspicion persists, submit new specimen for retesting in 1 to 2 weeks. Test Performed by: [facility] [address] 30 If clinical suspicion persists, submit new specimen for retesting in 1 to 2 weeks. Test Performed by: [facility] [address] 31 If clinical suspicion persists, submit new specimen for retesting in 1 to 2 weeks. Test Performed by: [facility] [address] 32 If clinical suspicion persists, submit new specimen for retesting in 1 to 2 weeks. Test Performed by: [facility] [address] 33 SEE RESULT BELOW Name: DYIA ASHFORD : [address]: Timmy Montoya MD Acct: [id number] Unit: [id number] AGE: 76 Location: Re12/02/16 SEX: M Status: REG REF SPEC: [id number] BRAD: 12/02/16-[address] [facility] [address]: Timmy Montoya MD REQ: [id number] RECD: 12/02/16 STATUS: TUNDE SALINAS DR: Isaac [...] performed at Main Lab DEPARTMENT OF PATHOLOGY, [address] [place] [address] Favian Templeton M.D. Director [facility] # [id number] 34 SEE RESULT BELOW Name: DIYA ASHFORD : [address]: Timmy oMntoya MD Acct: [id number] Unit: [id number] AGE: 76 Location: SP Re12/02/16 SEX: M Status: REG REF SPEC: [id number] BRAD: 12/02/[address]: Timmy Montoya MD REQ: [id number] RECD: 12/02/16 STATUS: TUNDE ASLINAS DR: Ari Salazar MD _ ORDERED: Decal, LEVEL 4/2, IMMUNO-FIRST, IMMUNO-ADDL/2, SPEC ST NON-ORG/2 Plasma cell disease has been performed at [facility], [place], [place]. The testing reveals: Specimen: Bone marrow. [...] pathologic correlation is recommended. Test Performed by: [place] [id number] CONTINUED ON NEXT PAGE * ML=Testing performed at Main Lab DEPARTMENT OF PATHOLOGY, [address] [place] [address] Favian Templeton M.D. Director [facility] # [id number] RUN DATE: 12/14/16 [facility] LAB LIVE PAGE 2 Patient: DIYA ASHFORD [id number] (Continued) ADDENDUM (Continued) Addendum Signed (signature on file) Sunita Landa MD 1043 B-cell lymphoma has been performed at [place], [place]. The testing reveals: Specimen: Bone marrow. Method: Locus and probes [Strategy;#Nuclei;Class] 3q27(3'BCL6,5'BCL6) [BAP;200;ASR] 8q24(5'MYC,3'MYC) [BAP;200;ASR] 11q13(CCND1-XT),14q32(IGH-XT) [DFISH;500;ASR] 17p13(TP53),17CEN(D17Z1) [COPY#;200;ASR] 18q21(5'MALT1,3'MALT1) [BAP;200;ASR] 18q21(5'BCL2,3'BCL2) [BAP;200;ASR] Probe strategies include: DFISH=dual color, double fusion; BAP=break-apart probe; COPY#=region gain and loss. Result: Interphase FISH is normal for all loci studied. Result Summary: Normal Result Table: Abnormality Name Result %Abn Cutoff (%) 8q24.1(MYC sep) Normal <6.5% -17p13.1(TP53x1,A60C5z1) Normal <9.5% -17(TP53,D17Z1)x1 Normal <5.5% 18q21(MALT1 sep) [...] performed at Main Lab DEPARTMENT OF PATHOLOGY, [address] [place] [address] Favian Templeton M.D. Director [facility] # [id number] RUN DATE: 12/14/16 [facility] LAB LIVE PAGE 3 Patient: DIYA ASHFORD [id number] (Continued) ADDENDUM (Continued) Additional cytogenetic studies are reported separately. Test Performed by: [address] [address] Addendum Signed (signature on file) Favian Templeton [...] ON NEXT PAGE * ML=Testing performed at [facility] DEPARTMENT OF PATHOLOGY, [address] [place] [address] Favian Templeton M.D. Director [facility] # [id number] RUN DATE: 12/14/16 [facility] LAB LIVE PAGE 4 Patient: DIYA ASHFORD [id number] (Continued) SPECIAL STUDIES (Continued) SPECIAL STUDIES Flow cytometry has been performed at [facility], [place], [place]. The testing reveals: FINAL DIAGNOSIS: Specimen Source: Right posterior iliac crest bone marrow Flow cytometry immunophenotypic analysis: Interpretative data: Lambda light chain restricted, CD19 positive, CD10 negative B-cell population detected (4% of WBCs, 19% of gated lymphocytes). [place] light chain restricted plasma cells, (less than [...] Electronically signed by: Favian Templeton MD 12/05/16 4777 Technical component performed by: [facility] [address] [place] [address] Dye Feeder: Jamie Porter II, MD, PhD. CONTINUED ON NEXT PAGE * ML=Testing performed at Main Lab DEPARTMENT OF PATHOLOGY, [address] [place] [address] Favian Templeton M.D. Director [facility] # [id number] RUN DATE: 12/14/16 [facility] LAB LIVE PAGE 5 Patient: DIYA ASHFORD [id number] (Continued) PRE-OPERATIVE DIAGNOSIS (Continued) PRE-OPERATIVE DIAGNOSIS D47.2 [...] performed at Main Lab DEPARTMENT OF PATHOLOGY, [address] [place] [address] Favian Templeton M.D. Director [facility] # [id number] RUN DATE: 12/14/16 [facility] LAB LIVE PAGE 6 Patient: DIYA ASHFORD [id number] (Continued) MICROSCOPIC DESCRIPTION (Continued) Signed (signature on file) Favian Templeton MD 1547 END OF REPORT * ML=Testing performed at Main Lab DEPARTMENT OF PATHOLOGY, [address] [place] [address] Favian Templeton M.D. Director [facility] # [id number] 35 FINAL DIAGNOSIS: Specimen Source: Right posterior iliac crest bone marrow Flow cytometry immunophenotypic analysis: Interpretative data: Lambda light chain restricted, CD19 positive, CD10 negative B-cell population detected (4% of WBCs, 19% of gated lymphocytes). [place] light chain restricted plasma cells, (less than [...] MD 12/05/16 1452 Technical component performed by: [place] [address] Dye Feeder: Jamie Porter II, MD, PhD. 36 RESULT: Monoclonal gammopathy, Hyperlipidemia, unspecified 37 Locus and probes [Strategy;#Nuclei;Class] 3q27(3'BCL6,5'BCL6) [BAP;200;ASR] 8q24(5'MYC,3'MYC) [BAP;200;ASR] 11q13(CCND1-XT),14q32(IGH-XT) [DFISH;500;ASR] 17p13(TP53),17CEN(D17Z1) [COPY#;200;ASR] 18q21(5'MALT1,3'MALT1) [BAP;200;ASR] 18q21(5'BCL2,3'BCL2) [BAP;200;ASR] Probe strategies include: DFISH=dual color, double fusion; BAP=break-apart probe; COPY#=region gain and loss. 38 RESULT: Interphase FISH is normal for all loci studied. 39 Abnormality Name Result %Abn Cutoff (%) 8q24.1(MYC sep) Normal <6.5% -17p13.1(TP53x1,K13U0n9) Normal <9.5% -17(TP53,D17Z1)x1 Normal <5.5% 18q21(MALT1 sep) Normal <3.5% 18q21(BCL2 sep) Normal <5.5% 3q27(BCL6 sep) Normal <3.5% t(11;14) CCND1-XT/IGH-XT fusion Normal <0.6% 40 This result is within normal limits for the B-cell lymphoma FISH panel. A normal FISH result does not exclude the presence of lymphoma in the bone marrow. Clinical and pathologic correlation is suggested. Additional cytogenetic studies are reported separately. 41 Previous Studies DATE SPECIMEN RESULT 01/26/2015 Marrow Plasma cell FISH abnormal 42 RESULT: Franklyn Pete M.D., Ph.D. Test Performed by: [facility] - [address] [address] 43 Applicable to Analyte Specific Reagent (ASR) and Laboratory Developed Tests (LDT). This test was developed and its performance characteristics determined by [facility] in a manner consistent with CLIA requirements. It has not been cleared or approved by the U.S. Food and Drug Administration. This FISH test does not rule out other chromosome abnormalities. 44 RESULT: Monoclonal gammopathy, Hyperlipidemia, unspecified 45 Locus and probes [Strategy;#Nuclei;Class] 1p36.3(TP73),1q22 [COPY#;50;LDT] 8q24(5'MYC,3'MYC) [BAP;50;ASR] 11q13(CCND1-XT),14q32(IGH-XT) [DFISH;50;ASR] Probe strategies include: DFISH=dual color, double fusion; BAP=break-apart probe; COPY#=region gain and loss. 46 Abnormality Name Result # Abn Total Cells t(11;14) CCND1-XT/IGH-XT Abnormal 6 9 fusion +11(CCND1-XTx3) Normal 0 9 47 RESULT: nuc simon(CCND1-XT,IGH-XT)x3(CCND1-XT con IGH-XTx2) 48 The result is abnormal and indicates a [...] recommended. Additional cytogenetic studies are reported separately. 49 Previous Studies DATE SPECIMEN RESULT 01/26/2015 Marrow Plasma cell FISH abnormal 50 Applicable to Analyte Specific Reagent (ASR) and Laboratory Developed Tests (LDT). This test was developed and its performance characteristics determined by [facility] in a manner consistent with CLIA requirements. It has not been cleared or approved by the U.S. Food and Drug Administration. This FISH test does not rule out other chromosome abnormalities. 51 RESULT: Della Bell D.O. Test Performed by: [facility] - [address] [address] 52 SEE RESULT BELOW Name: DIYA ASHFORD : [address]: Ari Salazar MD Acct: [id number] Unit: [id number] AGE: 76 Location: [facility] Re11/04/16 SEX: M Status: REG REF SPEC: [id number] BRAD: 11/04/16-[address] [facility] [address]: Isaac Ruiz MD REQ: [id number] RECD: 11/04/168569 STATUS: TUNDE SALINAS DR: Franklyn Guillen MD [...] performed at Main Lab DEPARTMENT OF PATHOLOGY, [address] [place] [address] Favian Templeton M.D. Director [facility] # [id number] 53 Because ethnic data is not always readily [...] 15-29 5 Kidney failure <15 (or dialysis) 54 ADDITIONAL INFORMATION This test was developed and its performance characteristics determined by [facility] in a manner consistent with CLIA requirements. This test has not been cleared or approved by the U.S. Food and Drug Administration. Test Performed by: [address] [address] 55 SEE RESULT BELOW Name: DIYA ASHFORD : [address]: Gonzalo Nunez MD Acct: [id number] Unit: [id number] AGE: 76 Location: [facility] [id number] Re09/27/16 Dis: 09/28/16 SEX: M Status: DIS Kiel SPEC: [id number] BRAD: 09/27/16- SUBM DR: Gonzalo Nunez MD REQ: [id number] RECD: 09/27/16 STATUS: SOUT _ ORDERED: TRICHROME [...] and the wall thickness averages 0.1 cm. Truss Assembler sections, one cassette. 2. The specimen is received in formalin labeled, Liver Biopsy, and consists of a 1.5 x 0.1 CONTINUED ON NEXT PAGE * ML=Testing performed at Main Lab DEPARTMENT OF PATHOLOGY, [address] [place] [address] Favian Templeton M.D. Director [facility] # [id number] RUN DATE: 09/29/16 [facility] LAB LIVE PAGE 2 Patient: DIYA ASHFORD [id number] (Continued) GROSS DESCRIPTION (Continued) GROSS DESCRIPTION (Continued) cm patten soft tissue core admixed with scant red-brown blood clot. Entirely submitted, one cassette. Signed (signature on file) Favian Templeton MD 1647 END OF REPORT * ML=Testing performed at Main Lab DEPARTMENT OF PATHOLOGY, [address] [place] [address] Favian Templeton M.D. Director [facility] # [id number] 56 SEE RESULT BELOW Name: DIYA ASHFORD Анна : [address]: Gonzalo Nunez MD Acct: [id number] Unit: [id number] AGE: 76 Location: [place] [address] Re09/27/16 SEX: M Status: ADM Kiel SPEC: [id number] BRAD: 09/27/16-[address] [facility] [address]: Gonzalo Nunez MD REQ: [id number] RECD: 09/27/16 STATUS: SOUT _ ORDERED: THIN PREP NON G FINAL DIAGNOSIS Peritoneal fluid: -- Negative for malignant cells. -- Mixed lymphoid elements, macrophages and scattered mesothelial elements only. 1. PERITONEAL - PERITONEAL FLUID GROSS DESCRIPTION 35 mls of cloudy yellow/green fluid. Signed (signature on file) Favian Templeton MD 1327 END OF REPORT * ML=Testing performed at Main Lab DEPARTMENT OF PATHOLOGY, [address] [place] [address] Favian Templeton M.D. Director [facility] # [id number] 57 RUN DATE: 06/01/14 [facility] LAB LIVE PAGE 1 RUN TIME: [address] [place] [address] Specimen Inquiry Name: DIYA ASHFORD : [address]: Dominic Jensen MD Acct: [id number] Unit: [id number] AGE: 74 Location: [facility] Re05/28/14 SEX: M Status: REG REF SPEC: [id number] BRAD: 05/28/[address] [facility] [address]: Dominic Jensen MD REQ: [id number] RECD: 05/28/14 STATUS: COMP _ SOURCE: JOINT FLUI SPDESC:KNEE LEFT ORDERED: KIERRA Moscoso/POLLO Procedure Result Verified Site Body Fluid Gram Stain Final 05/28/14- 1055 ML 4+ Neutrophils No Organisms Seen BY CENTRIFUGED SMEAR Body Fluid Culture Final 06/01/14- 0815 ML No Growth Day 4 END OF REPORT * ML=Testing performed at Main Lab DEPARTMENT OF PATHOLOGY, [address] [place] [address] Favian Templeton M.D. Director [facility] # [id number] 58 Synovial (Joint) Fluid Procedures Date CPT Code Description Status 04/06/2018 92508 EKG Tracing & Interpretation Completed 03/14/2018 99548 Treadmill Interp/Report Only Completed 03/14/2018 61850 Stress Test Supervsn W/Out I/R Completed 03/08/2018 62525 EKG Tracing & Interpretation Completed 02/27/2018 97475 EKG Tracing & Interpretation Completed 02/22/2018 74293 Pace Maker Eval W/Iterative Adjment Dual Lead Completed 02/22/2018 78996 Pace Maker Eval W/Iterative Adjment Dual Lead Completed 02/22/2018 25782 EKG Tracing & Interpretation Completed 12/07/2017 99008 EKG Tracing & Interpretation Completed 11/30/2017 55571 Stress Test Supervsn W/Out I/R Completed 11/30/2017 65874 Treadmill Interp/Report Only Completed 10/10/2017 69384 Stress Test Completed 10/10/2017 26942 Myocardial Perfusion Imaging Tomographic (Spect) Completed Multiple Studies 10/03/2017 70386 EKG Tracing & Interpretation Completed 09/29/2017 10048 ECHO Transthorasic Realtime 2D W Doppler & Color Flow Completed Hosp 09/29/2017 43937 EKG, Interpretation Only Completed 09/28/2017 29901 Cath PLMT&NJX L Ventriculog Img S&I Completed 09/28/2017 10842 Interrogation Device Eval In Person W/ Completed Analysis,Single,Dual,Mul 09/28/2017 31085 EKG, Interpretation Only Completed 09/28/2017 50997 Revascularization Acute Total/Subtotal Occlusion Completed 09/27/2017 26404 EKG, Interpretation Only Completed 09/25/2017 08112 EKG, Interpretation Only Completed 09/25/2017 84762 Removal With Replacement Dual Lead System Pulse Completed Generator 09/24/2017 33560 Interrogation Device Eval In Person W/DR Completed Analysis,Single,Dual,Mul 09/22/2017 11581 ECHO Transthorasic Realtime 2D W Doppler & Color Flow Completed Hosp 09/22/2017 30165 EKG, Interpretation Only Completed 09/22/2017 63883 EKG, Interpretation Only Completed 02/23/2017 64140 ECHO Transthorasic Realtime 2D W Doppler & Color Flow Completed Hosp 11/04/2016 96483 Catheter Placement Venous Second Order Branch Completed 11/04/2016 97621 Transcatheter Biopsy Completed 11/04/2016 52437 Venography Liver W/Hemodynamic Evaluation Completed 11/04/2016 88868 Transcatheter Biopsy Radiology Completed 11/04/2016 53437 Ultrasound Guidance For Vascular Access Completed 09/27/2016 82623 Laparoscopy Cholecystectomy Completed 09/27/2016 35426 Laparoscopy Cholecystectomy Completed 09/27/2016 69158 Biopsy Liver W/Other Major Procedure Completed 05/28/2014 43639 Rad Exam; Knee, Ap&L Completed 05/28/2014 13596 Rad Exam; Knee, Ap&L Completed 05/28/2014 85684 Rad Exam; Pelvis Completed 02/03/2012 00651 Rad Exam; Foot Comp Completed Encounters Type Date Location Provider CPT E/M Dx Office Visit 04/06/2018 [facility] Meryl Olmedo M.D. 89520 I25.10 4:20p [facility] Z95.0 I95.9 K76.6 Office Visit 03/23/2018 4:20p Donte Olmedo M.D. 07112 I25.119 [facility] Z01.810 Z95.0 K74.60 Office Visit 03/08/2018 1:30p [facility] Meryl Olmedo M.D. 42442 I25.119 [facility] Z95.0 K76.6 E78.5 Office Visit 02/27/2018 10:20a [facility] Yves Mena, 91332 I20.9 [facility] Office Visit 02/05/2018 10:45a [facility] [place], [address] K40.90 [facility] FACS K74.60 R18.8 Office Visit 12/21/2017 2:45p [facility] Nikunj Bonds, 43742 M16.0 Andre MEZA M25.562 M25.561 Office Visit 12/07/2017 1:45p [facility] Angelic Olmedo M.D. 40879 I25.119 [facility] D64.9 N18.3 Z95.0 K74.60 Office Visit 10/19/2017 2:00p [facility] Cece Barajas, 37926 K92.2 Hospitalists OPERATING ROOM SURGICAL TECHNOLOGIST D62 R06.02 I25.118 Office Visit 10/18/2017 12:04p [facility] Angelic Olmedo M.D. 45119 K27.4 [facility] I21.4 I25.10 Office Visit 10/18/2017 1:59p [facility],agustina Barajas, 46778 K92.2 Hospitalists OPERATING ROOM SURGICAL TECHNOLOGIST D62 R06.02 I25.118 Office Visit 10/17/2017 1:58p [facility],agustina Barajas, 38162 K92.2 Hospitalists OPERATING ROOM SURGICAL TECHNOLOGIST D62 I25.118 R06.02 Office Visit 10/16/2017 10:32a [facility] [place], 76012 I25.10 Ronal Otto K92.2 Office Visit 10/16/2017 1:57p [facility], Renetta Moseley 35228 K92.2 Hospitalists DARLENE Cuevas D62 I25.118 R06.02 Office Visit 10/04/2017 1:20p [facility] Patrick Joshua M.D., 44843 Z48.1 Refrigerator Car Icer AT [facility], FSCAI I21.4 N18.3 D64.9 Office Visit 10/03/2017 10:00a [facility] Meryl Olmedo M.D. 05214 Z95.0 [facility] I25.119 K74.60 N18.9 D64.9 I21.4 Office Visit 09/29/2017 9:49a [facility] Shruti Shields, 28615 I24.9 Assoc,pc OPERATING ROOM SURGICAL TECHNOLOGIST Hospitalists R74.8 K74.69 R07.89 Office Visit 09/29/2017 11:18a [facility] Angelic Olmedo M.D. 61275 I25.10 [facility] I95.9 Office Visit 09/28/2017 9:48a [facility] Shruti Shields, 33741 I24.9 Assoc,pc OPERATING ROOM SURGICAL TECHNOLOGIST Hospitalists R74.8 K74.69 Office Visit 09/27/2017 [facility] Shruti Shields, 30046 R07.89 9:24a Assoc,pc OPERATING ROOM SURGICAL TECHNOLOGIST Hospitalists R74.8 K74.69 Office Visit 09/27/2017 7:30a [facility] [place] [address] K76.6 Office Visit 09/27/2017 9:52a [facility] Patrick Joshua, 34086 R79.89 AT [facility] MPolly, FACC, [facility] Office Visit 09/27/2017 2:37p [facility] Angelic Olmedo, 92702 I25.10 Clarita I95.9 Office Visit 09/26/2017 9:22a [facility] Assoc,pc Margarita Echavarria N.PLow 07088 R07.89 Hospitalists R74.8 K74.69 Office Visit 09/24/2017 3:30p [facility] [place] [address] R55 FACC E87.70 Z95.0 Office Visit 09/23/2017 12:32p [facility] [place] [address] R55 FACC Z95.0 Office Visit 09/22/2017 12:34p [facility] [place] [address] R55 FACC Z95.0 Office Visit 09/21/2017 2:30p [facility] Angelic Olmedo M.D. 12867 Z95.0 Refrigerator Car Icer AT [facility] R06.02 I25.10 Office Visit 08/14/2017 2:40p [facility] Tommy Eddi Geronimo, 70057 R18.8 Infectious Diseases M.D. Office Visit 07/10/2017 3:40p [facility] Tommy Eddi Wei, 71447 K73.9 Infectious Diseases M.D. R18.8 Office Visit 03/30/2017 9:45a [facility] [place] [address] G47.33 Services Of [facility] Office Visit 09/27/2016 2:49p [facility] Shruti [address]7567 K70.31 Hospitalists DARLENE Shields G47.33 I10 Z90.49 Office Visit 08/10/2016 1:30p [facility] [place], [address] K80.20 [facility] FACS Office Visit 03/01/2016 9:45a [facility] [place] [address] G47.33 Services [facility] K21.9 E66.01 Office Visit 07/07/2014 9:15a [facility] Dominic Jensen M.D. 90348 724.4 C.M.A. Office Visit 06/30/2014 8:45a [facility] [place] [address] 327.23 Services Of [facility] 719.46 Office Visit 06/11/2014 9:15a [facility]ic Jensen M.D. 48874 715.16 C.M.A. Office Visit 05/28/2014 8:00a [facility] Domin[facility] Jensen M.D. 67813 715.16 C.M.A. Office Visit 03/05/2012 11:15a [facility] [place] 58394 845.10 C.MSerena Epstein. Office Visit 02/10/2012 8:15a [facility] [place] 67414 729.5 C.MSerena MSwapna. Office Visit 02/03/2012 11:30a [facility] [place] 83815 729.5 C.M.Porter MPolly Plan of Care Future Appointment(s):04/08/2019 10:30 am - Miriam Anguiano MD at [facility]04/06/2018 - Angelic Olmedo M.D.I25.10 [facility] [place] coronary artery w/o ang pctrsReferral:Cardiac-[facility] & amp; Fitness, Rehab:Cardiac Fac/ClinicFollow up:6 weeks approx. Keep current pacer schedule.Z95.0 Presence of cardiac pacemakerComments:ECG shows working well.I95.9 Hypotension, unspecifiedComments:Ensure you get enough fluid.Recommendations:STOP isosorbide.K76.6 Portal hypertension
--- OUTSIDE RECORDS SUMMARY | 2018-04-19 10:11 | XMS REPORT ---
:1940 External Reference #:[id number] Author Organization [facility] Address [address] [place] [address] [place] [address] Phone [phone] Care Team Providers Name Role Phone Franklyn Johnston MD Primary Care Physician Unavailable Payers Type Date Identification Numbers Payment Subscriber Provider Health Maintenance Effective: Policy Number: Medicare Rolly Ashford [facility] ([facility]) 07/31/2016 [id number] Ppo Group Number: [id number] [address] [address] PayID: [id number] SWATI Marcus [address] Health Maintenance Effective: Policy Number: Medicare Rolly Ugalde ([facility]) 07/31/2013 [id number] [facility] [place]a Expires: 07/30/2014 Group Number: [id number] [address] [address] Group Name: Expires 07/30/14 SWATI Marcus [address]483 PayID: [id number] Medigap Part B Effective: 01/28/2010 Policy Number: [facility] Diya Ashford [id number] Expires: 07/30/2013 PayID: [id number] [address] [address] SWATI Marcus 25261 Medigap Part B Effective: 12/29/2006 Policy Number: Medicare Diya Jj Ulisesmanoj [id number] Expires: 07/30/2013 PayID: [id number] [address] [place] [address] Problems Date Description Provider Status Onset: 07/09/2013 Sprain of foot Bryan Dee M.D. Active Onset: 06/30/2014 Obstructive sleep apnea syndrome Miriam Anguiano MD Active Onset: 03/01/2016 Gastroesophageal reflux disease Miriam Anguiano MD Active Onset: 03/01/2016 Morbid obesity Miriam Anguiano MD Active Onset: 10/03/2017 Cardiac pacemaker in situ Angelic Olmedo M.D. Active Onset: 10/03/2017 Athscl heart disease of cahto cor Angelic Olmedo M.D. Active art w unsp ang pctrs Onset: 10/04/2017 Acute subendocardial infarction Patrick Joshua M.D., [facility], Active [facility] Onset: 10/04/2017 Encounter for planned Patrick Joshua M.D., [facility], Active postprocedural wound closure [facility] Onset: 10/04/2017 Chronic kidney disease stage 3 Patrick Joshua M.D., [facility], Active [facility] Family History Date Family Member(s) Problem(s) Comments [...] Form Strength Qnty SIG Indications Ordering Provider Isosorbide 02/27/ Active Tablets 30mg 30tab Take 1/2 I20.9 Yves S. Mononitrate ER 2018 ER 24HR s tablet by Rajesh, DO mouth every [facility] day Rosuvastatin 01/10/ Active Tablets 40mg 90tab 1 [...] 0000 Sub s needed F. Mauser, angina M.DLow Lasix 00/00/ Active Tablets 40mg 1 by mouth Unknown 0000 twice per day Spironolactone / Active Tablets 50mg 1 tablet po Unknown 0000 daily ( medication change since [address] Ward) Pantoprazole 00/ Active Tablets 40mg 1 by mouth Unknown Sodium 0000 DR twice daily Atorvastatin 09/29/ Hx Tablets 40mg 90tab 1 by mouth Angelic Calcium 2018 - s every day [place], 01/10/ M.D. 2017 Brilinta 09/29/ Hx Tablets 90mg 180ta 1 tab by Angelic 2018 - bs mouth twice [place], 11/06/ day M.D. 2017 Hydrocodone 09/16/ Hx Tablets 5-300mg 14tab 1 tab by Jamilah Mittalrate/Aceta 2017 s mouth every B. minophen 4 hours as [place], needed pain EVP MANAGING DIRECTOR Hydrocodone 09/16/ Hx Tablets 5-300mg 14tab 1 tab by Jamilah Parrishartrate/Aceta 2017 s mouth every B. minophen 4 hours as [place], needed pain EVP MANAGING DIRECTOR Zantac 03/01/ Hx Tablets 300mg 90tab 1 tab by K21.9 Miriam 2015 - mouth every MD Annmarie 03/29/ day every 2016 night Lipitor 07/09/ Hx Tablets 80mg 90tab 1 po qhs Bryan 2012 - s Luiz, 03/29/ M.D. 2016 Losartan 00/00/ Hx Unknown Potassium 0000 - 2013 Celebrex 00/00/ Hx 200 daily Unknown 0000 - 2015 Aspirin Ec 00/ Hx 81mg daily Unknown Lo-Dose - 2017 Losartan 00/00/ Hx Tablets 100mg 1 by mouth Unknown Potassium 0000 every day Aldactone 00/00/ Hx Tablets 50mg 1 by mouth Unknown 0000 - daily 2016 Midodrine HCL 00/ Hx Tablets 5mg 1 po tid Sylvia 0000 Krystle Estes MD 2016 Plavix /00/ Hx Tablets 75mg 90tab 1 by mouth I25.119 Angelic 0000 - s every day [place], 12/07/ M.D. 2017 Prednisone /00/ Hx Tablets Unknown 0000 - 2017 Medications Administered in Office Medication Date Status Form Strength Qnty SIG Indications Ordering Provider Inj, Administered Injection Yves S. Regadenoson, 018 Mena, DO 0.1 MG FACC Technetium TC Administered Injection Yves S. 99M 018 Mena, DO Tetrofosmin, FACC Per Unit Dose Up To 40 Millicuries Influenza,Unsp Administered Injection Unknown ecified 017 Immunizations CPT Code Status Date Vaccine Lot # [id number] Given 05/14/2014 Influenza Virus 3Yrs & Over Vital Signs Date Vital Result Comment 03/23/2018 Height 71 inches 5'11" Weight 216.00 [...] Hepatitis E IgM Antibody Negative Negative 16 Hepatitis E IgG Antibody Negative Negative 17 Laboratory test 07/12/2017 Hepatitis E IgM Negative [...] 32 finding Antibody Laboratory test 12/02/2016 Cytology Non-Dope Weigh Operator SEE RESULT BELOW 33 finding Laboratory test [...] 0.02 54 AB Laboratory test finding 09/27/2016 Cytology Non-Dope Weigh Operator SEE RESULT BELOW 55 Laboratory test finding 09/27/2016 Surgical Pathology SEE RESULT BELOW 56 Body Fluid C&S [...] 7 SEE RESULT BELOW Name: DIYA ASHFORD Анна : [address]: Angelic Olmedo MD Acct: [id number] Unit: [id number] AGE: 77 Location: [facility] Re10/13/17 SEX: M Status: REG REF SPEC: [id number] BRAD: 10/13/17-[address] [facility] [address]: Angelic Olmedo MD REQ: [id number] RECD: 10/13/17-1313 STATUS: JOVANI SALINAS DR: Franklyn Johnston MD _ SOURCE: STOOL SPDESC: ORDERED: Occult Bl, Diag Procedure Result Reported Site Stool Occult Blood (1) Final 10/13/17- 1415 ML Stool Occult Blood Positive Collection Date (1) 10/13/17 * ML - Main Lab . END OF REPORT DEPARTMENT OF PATHOLOGY, [address] [place] [address] Favian Templeton M.D. Director [facility] # [id number] 8 Because ethnic data is not always [...] CHF [address] Moreno by [id number] at 1734 on 09/26/17. Results read back accurately. 13 Negative result does not rule out HIV infection. If acute HIV infection is suspected in a high-risk individual, submit plasma specimen for HIV-1 RNA quantification test (HIVDQ) and/or HIV-2 DNA/RNA test (FHV2Q). Test Performed by: [place] [address] 14 Test Result Flag Unit RefValue Strongyloides Ab, IgG, S Negative Negative No detectable levels of IgG antibodies to Strongyloides. Repeat testing in 1-2 weeks if clinically indicated. Test Performed by: [place] [address] 15 If clinical suspicion persists, submit new specimen for retesting in 1 to 2 weeks. Test Performed by: [place] [address] 16 If clinical suspicion persists, submit new specimen for retesting in 1 to 2 weeks. Test Performed by: [address] [address] 17 Test Performed by: [facility] - [address] [address] 18 If clinical suspicion persists, submit new specimen for retesting in 1 to 2 weeks. Test Performed by: [address] [address] 19 If clinical suspicion persists, submit new specimen for retesting in 1 to 2 weeks. Test Performed by: [facility] - [address] [address] 20 If clinical suspicion persists, submit new specimen for retesting in 1 to 2 weeks. Test Performed by: [address] [address] 21 If clinical suspicion persists, submit new specimen for retesting in 1 to 2 weeks. Test Performed by: [address] [address] 22 If clinical suspicion persists, submit new specimen for retesting in 1 to 2 weeks. Test Performed by: [facility] - [address] [address] 23 If clinical suspicion persists, submit new specimen for retesting in 1 to 2 weeks. Test Performed by: [address] [address] 24 If clinical suspicion persists, submit new specimen for retesting in 1 to 2 weeks. Test Performed by: [address] [address] 25 If clinical suspicion persists, submit new specimen for retesting in 1 to 2 weeks. Test Performed by: [address] [address] 26 If clinical suspicion persists, submit new specimen for retesting in 1 to 2 weeks. Test Performed by: [address] [address] 27 If clinical suspicion persists, submit new specimen for retesting in 1 to 2 weeks. Test Performed by: [address] [address] 28 If clinical suspicion persists, submit new specimen for retesting in 1 to 2 weeks. Test Performed by: [address] [address] 29 If clinical suspicion persists, submit new specimen for retesting in 1 to 2 weeks. Test Performed by: [facility] [place] [address] 30 If clinical suspicion persists, submit new specimen for retesting in 1 to 2 weeks. Test Performed by: [facility] [place] [address] 31 If clinical suspicion persists, submit new specimen for retesting in 1 to 2 weeks. Test Performed by: [facility] [place] [address] 32 If clinical suspicion persists, submit new specimen for retesting in 1 to 2 weeks. Test Performed by: [facility] [place] [address] 33 SEE RESULT BELOW Name: DIYA ASHFORD : [address]: Timmy Montoya MD Acct: [id number] Unit: [id number] AGE: 76 Location: Re12/02/16 SEX: M Status: REG REF SPEC: [id number] BRAD: 12/02/16-[address] [facility] [address]: Timmy Montoya MD REQ: [id number] RECD: 12/02/16 STATUS: TUNDE SALINAS DR: Isaac [...] performed at Main Lab DEPARTMENT OF PATHOLOGY, [address] [place] [address] Favian Templeton M.D. Director [facility] # [id number] 34 SEE RESULT BELOW Name: DIYA ASHFORD : [address]: Timmy Montoya MD Acct: [id number] Unit: [id number] AGE: 76 Location: Re12/02/16 SEX: M Status: REG REF SPEC: [id number] BRAD: 12/02/[address]: Timmy Montoya MD REQ: [id number] RECD: 12/02/16 STATUS: TUNDE SALINAS DR: Ari Salazar MD _ ORDERED: Decal, LEVEL 4/2, IMMUNO-FIRST, IMMUNO-ADDL/2, SPEC ST NON-ORG/2 Plasma cell disease has been performed at [facility], [place], [place]. The testing reveals: Specimen: Bone marrow. [...] pathologic correlation is recommended. Test Performed by: [facility] - [address] [address] CONTINUED ON NEXT PAGE * ML=Testing performed at Main [facility] DEPARTMENT OF PATHOLOGY, [address] [place] [address] Favian Templeton M.D. Director [facility] # [id number] RUN DATE: 12/14/16 [facility] LAB LIVE PAGE 2 Patient: DIYA ASHFORD [id number] (Continued) ADDENDUM (Continued) Addendum Signed (signature on file) Sunita Landa MD 1043 B-cell lymphoma has been performed at [facility], [place], [place]. The testing reveals: Specimen: Bone marrow. Method: Locus and probes [Strategy;#Nuclei;Class] 3q27(3'BCL6,5'BCL6) [BAP;200;ASR] 8q24(5'MYC,3'MYC) [BAP;200;ASR] 11q13(CCND1-XT),14q32(IGH-XT) [DFISH;500;ASR] 17p13(TP53),17CEN(D17Z1) [COPY#;200;ASR] 18q21(5'MALT1,3'MALT1) [BAP;200;ASR] 18q21(5'BCL2,3'BCL2) [BAP;200;ASR] Probe strategies include: DFISH=dual color, double fusion; BAP=break-apart probe; COPY#=region gain and loss. Result: Interphase FISH is normal for all loci studied. Result Summary: Normal Result Table: Abnormality Name Result %Abn Cutoff (%) 8q24.1(MYC sep) Normal <6.5% -17p13.1(TP53x1,X24S6b1) Normal <9.5% -17(TP53,D17Z1)x1 Normal <5.5% 18q21(MALT1 sep) [...] performed at Main Lab DEPARTMENT OF PATHOLOGY, [address] [place] [address] Favian Templeton M.D. Director CLIA # [id number] RUN DATE: 12/14/16 [facility] LAB LIVE PAGE 3 Patient: DIYA ASHFORD Анна [id number] (Continued) ADDENDUM (Continued) Additional cytogenetic studies are reported separately. Test Performed by: [address] [address] Addendum Signed (signature on file) Favian Templeton [...] performed at Main Lab DEPARTMENT OF PATHOLOGY, [address] [place] [address] Favian Templeton M.D. Director [facility] # [id number] RUN DATE: 12/14/16 [facility] LAB LIVE PAGE 4 Patient: DIYA ASHFORD [id number] (Continued) SPECIAL STUDIES (Continued) SPECIAL STUDIES Flow cytometry has been performed at [place], [place]. The testing reveals: FINAL DIAGNOSIS: Specimen Source: Right posterior iliac crest bone marrow Flow cytometry immunophenotypic analysis: Interpretative data: Lambda light chain restricted, CD19 positive, CD10 negative B-cell population detected (4% of WBCs, 19% of gated lymphocytes). [place] light chain restricted plasma cells, (less than [...] Electronically signed by: Favian Templeton MD 12/05/16 1949 Technical component performed by: [place] [address] Health Administrator: Jamie Porter II, MD, PhD. CONTINUED ON NEXT PAGE * ML=Testing performed at Main Lab DEPARTMENT OF PATHOLOGY, [address] [place] [address] Favian Templeton M.D. Director [facility] # [id number] RUN DATE: 12/14/16 [facility] LAB LIVE PAGE 5 Patient: DIYA ASHFORD [id number] (Continued) PRE-OPERATIVE DIAGNOSIS (Continued) PRE-OPERATIVE DIAGNOSIS D47.2 [...] performed at Main Lab DEPARTMENT OF PATHOLOGY, [facility] [employer] [place] [id number] Favian Templeton M.D. Director [facility] # [id number] RUN DATE: 12/14/16 [facility] LAB LIVE PAGE 6 Patient: DIYA ASHFORD [id number] (Continued) MICROSCOPIC DESCRIPTION (Continued) Signed (signature on file) Favian Templeton MD 1547 END OF REPORT * ML=Testing performed at Main Lab DEPARTMENT OF PATHOLOGY, [facility] [employer] [place], [place] [address] Favian Templeton M.D. Director [facility] # [id number] 35 FINAL DIAGNOSIS: Specimen Source: Right posterior iliac crest bone marrow Flow cytometry immunophenotypic analysis: Interpretative data: Lambda light chain restricted, CD19 positive, CD10 negative B-cell population detected (4% of WBCs, 19% of gated lymphocytes). [place] light chain restricted plasma cells, (less than [...] Electronically signed by: Favian Templeton MD 12/05/16 3055 Technical component performed by: [place] [address] Health Administrator: Jamie Porter II, MD, PhD. 36 RESULT: Monoclonal gammopathy, Hyperlipidemia, unspecified 37 Locus and probes [Strategy;#Nuclei;Class] 3q27(3'BCL6,5'BCL6) [BAP;200;ASR] 8q24(5'MYC,3'MYC) [BAP;200;ASR] 11q13(CCND1-XT),14q32(IGH-XT) [DFISH;500;ASR] 17p13(TP53),17CEN(D17Z1) [COPY#;200;ASR] 18q21(5'MALT1,3'MALT1) [BAP;200;ASR] 18q21(5'BCL2,3'BCL2) [BAP;200;ASR] Probe strategies include: DFISH=dual color, double fusion; BAP=break-apart probe; COPY#=region gain and loss. 38 RESULT: Interphase FISH is normal for all loci studied. 39 Abnormality Name Result %Abn Cutoff (%) 8q24.1(MYC sep) Normal <6.5% -17p13.1(TP53x1,Y40N1c5) Normal <9.5% -17(TP53,D17Z1)x1 Normal <5.5% 18q21(MALT1 sep) [...] Franklyn Pete M.D., Ph.D. Test Performed by: [address] [address] 43 Applicable to Analyte Specific Reagent (ASR) and Laboratory Developed Tests (LDT). This test was developed and its performance characteristics determined by [facility] in a manner consistent with CLIA requirements. [...] developed and its performance characteristics determined by [facility] in a manner consistent with CLIA requirements. It has not been cleared or approved by the U.S. Food and Drug Administration. This FISH test does not rule out other chromosome abnormalities. 51 RESULT: Della Bell D.O. Test Performed by: [facility] - [address] [address] 52 SEE RESULT BELOW Name: DIYA ASHFORD : [address]: Ari Salazar MD Acct: [id number] Unit: [id number] AGE: 76 Location: [facility] Re11/04/16 SEX: M Status: REG REF SPEC: [id number] BRAD: 11/04/16-[address] [facility] [address]: Isaac Ruiz MD REQ: [id number] RECD: 11/04/169090 STATUS: TUNDE SALINAS DR: Franklyn Guillen MD [...] performed at Main Lab DEPARTMENT OF PATHOLOGY, [address] [place] [address] Favian Templeton M.D. Director [facility] # [id number] 53 Because ethnic data is not always [...] developed and its performance characteristics determined by [facility] in a manner consistent with CLIA requirements. This test has not been cleared or approved by the U.S. Food and Drug Administration. Test Performed by: [facility] - [address] [address] 55 SEE RESULT BELOW Name: DIYA ASHFORD : [address]: Gonzalo Nunez MD Acct: [id number] Unit: [id number] AGE: 76 Location: [place] [address] Re09/27/16 SEX: M Status: ADM Kiel SPEC: [id number] BRAD: 09/27/16-[address] [facility] [address]: Gonzalo Nunez MD REQ: [id number] RECD: 09/27/16 STATUS: SOUT _ ORDERED: THIN PREP NON G FINAL DIAGNOSIS Peritoneal fluid: -- Negative for malignant cells. -- Mixed lymphoid elements, macrophages and scattered mesothelial elements only. 1. PERITONEAL - PERITONEAL FLUID GROSS DESCRIPTION 35 mls of cloudy yellow/green fluid. Signed (signature on file) Favian Templeton MD 1327 END OF REPORT * ML=Testing performed at Main Lab DEPARTMENT OF PATHOLOGY, [address] [place] [address] Favian Templeton M.D. Director [facility] # [id number] 56 SEE RESULT BELOW Name: DIYA ASHFORD : [address]: Gonzalo Nunez MD Acct: [id number] Unit: [id number] AGE: 76 Location: [facility] 332-01 Re09/27/16 Dis: 09/28/16 SEX: M Status: DIS Kiel SPEC: [id number] BRAD: 09/27/16- [facility] DR: Gonzalo Nunez MD REQ: [id number] RECD: 09/27/16 STATUS: SOUT _ ORDERED: TRICHROME [...] and the wall thickness averages 0.1 cm. Wet Cleaner Machine sections, one cassette. 2. The specimen is received in formalin labeled, Liver Biopsy, and consists of a 1.5 x 0.1 CONTINUED ON NEXT PAGE * ML=Testing performed at Main Lab DEPARTMENT OF PATHOLOGY, [address] [place] [address] Favian Templeton M.D. Director [facility] # [id number] RUN DATE: 09/29/16 [facility] LAB LIVE PAGE 2 Patient: DIYA ASHFORD [id number] (Continued) GROSS DESCRIPTION (Continued) GROSS DESCRIPTION (Continued) cm patten soft tissue core admixed with scant red-brown blood clot. Entirely submitted, one cassette. Signed (signature on file) Favian Templeton MD 1647 END OF REPORT * ML=Testing performed at Main Lab DEPARTMENT OF PATHOLOGY, [facility] [employer] [place] [address] Favian Templeton M.D. Director CLIA # [id number] RUN DATE: 06/01/14 [facility] LAB LIVE PAGE 1 RUN TIME: 814 [facility] [place], [place] [address] Specimen Inquiry Name: DIYA ASHFORD : [address]: Dominic Jensen MD Acct: [id number] Unit: [id number] AGE: 74 Location: [facility] Re05/28/14 SEX: M Status: REG REF SPEC: [id number] BRAD: 05/28/[address]: Dominic Jensen MD REQ: [id number] RECD: 05/28/14 STATUS: COMP _ SOURCE: JOINT FLUI SPDESC:KNEE LEFT ORDERED: BF Blanka/GS Procedure Result Verified Site Body Fluid Gram Stain Final 05/28/14- 1055 ML 4+ Neutrophils No Organisms Seen BY CENTRIFUGED SMEAR Body Fluid Culture Final 06/01/14- 0815 ML No Growth Day 4 END OF REPORT * ML=Testing performed at Main Lab DEPARTMENT OF PATHOLOGY, [address] [place] [address] Favian Templeton M.D. Director [facility] # [id number] 58 Synovial (Joint) Fluid Procedures Date CPT Code Description Status 03/14/2018 82347 Treadmill Interp/Report Only Completed 03/14/2018 60211 Stress Test Supervsn W/Out I/R Completed 03/08/2018 08253 EKG Tracing & Interpretation Completed 02/27/2018 29804 EKG Tracing & Interpretation Completed 02/22/2018 04991 Pace Maker Eval W/Iterative Adjment Dual Lead Completed 02/22/2018 61236 Pace Maker Eval W/Iterative Adjment Dual Lead Completed 02/22/2018 05043 EKG Tracing & Interpretation Completed 12/07/2017 81946 EKG Tracing & Interpretation Completed 11/30/2017 35708 Stress Test Supervsn W/Out I/R Completed 11/30/2017 50054 Treadmill Interp/Report Only Completed 10/10/2017 31748 Stress Test Completed 10/10/2017 31151 Myocardial Perfusion Imaging Tomographic (Spect) Completed Multiple Studies 10/03/2017 56241 EKG Tracing & Interpretation Completed 09/29/2017 24122 ECHO Transthorasic Realtime 2D W Doppler & Color Flow Completed Hosp 09/29/2017 18313 EKG, Interpretation Only Completed 09/28/2017 85757 Cath PLMT&NJX L Ventriculog Img S&I Completed 09/28/2017 26566 Interrogation Device Eval In Person W/DR Completed Analysis,Single,Dual,Mul 09/28/2017 54272 EKG, Interpretation Only Completed 09/28/2017 48692 Revascularization Acute Total/Subtotal Occlusion Completed 09/27/2017 91572 EKG, Interpretation Only Completed 09/25/2017 72165 EKG, Interpretation Only Completed 09/25/2017 85198 Removal With Replacement Dual Lead System Pulse Completed Generator 09/24/2017 68786 Interrogation Device Eval In Person W/DR Completed Analysis,Single,Dual,Mul 09/22/2017 61524 ECHO Transthorasic Realtime 2D W Doppler & Color Flow Completed Hosp 09/22/2017 09320 EKG, Interpretation Only Completed 09/22/2017 45686 EKG, Interpretation Only Completed 02/23/2017 90781 ECHO Transthorasic Realtime 2D W Doppler & Color Flow Completed Hosp 11/04/2016 01050 Catheter Placement Venous Second Order Branch Completed 11/04/2016 42790 Transcatheter Biopsy Completed 11/04/2016 22426 Venography Liver W/Hemodynamic Evaluation Completed 11/04/2016 59280 Transcatheter Biopsy Radiology Completed 11/04/2016 69961 Ultrasound Guidance For Vascular Access Completed 09/27/2016 51298 Laparoscopy Cholecystectomy Completed 09/27/2016 62425 Laparoscopy Cholecystectomy Completed 09/27/2016 83365 Biopsy Liver W/Other Major Procedure Completed 05/28/2014 89851 Rad Exam; Knee, Ap&L Completed 05/28/2014 67391 Rad Exam; Knee, Ap&L Completed 05/28/2014 64736 Rad Exam; Pelvis Completed 02/03/2012 00957 Rad Exam; Foot Comp Completed Encounters Type Date Location Provider CPT E/M Dx Office Visit 03/08/2018 [facility] Meryl Olmedo M.D. 66529 I25.119 1:30p Yarding Engineer Z95.0 K76.6 E78.5 Office Visit 02/27/2018 10:20a [facility] Of Yves Mena, 53267 I20.9 Yarding Engineer FACC Office Visit 02/05/2018 10:45a [facility] [place], [address] K40.90 Yarding Engineer FACS K74.60 R18.8 Office Visit 12/21/2017 2:45p [facility] Nikunj Bonds, 88169 M16.0 Andre MEZA M25.562 M25.561 Office Visit 12/07/2017 1:45p [facility] Of Angelic Olmedo M.D. 26331 I25.119 Yarding Engineer D64.9 N18.3 Z95.0 K74.60 Office Visit 10/19/2017 2:00p [facility], Cece Barajas, [address] K92.2 Hospitalists EVP MANAGING DIRECTOR D62 R06.02 I25.118 Office Visit 10/18/2017 1:59p [facility],agustina Barajas, 52599 K92.2 Hospitalists EVP MANAGING DIRECTOR D62 R06.02 I25.118 Office Visit 10/18/2017 12:04p [facility] Of Angelic Olmedo M.D. 12575 K27.4 [facility] I21.4 I25.10 Office Visit 10/17/2017 1:58p [facility],pc Cecesofya Barajas, [address]483 K92.2 Hospitalists EVP MANAGING DIRECTOR D62 I25.118 R06.02 Office Visit 10/16/2017 10:32a [facility] Of Burak [place], [address]2020 I25.10 Ronal Otto K92.2 Office Visit 10/16/2017 1:57p [facility],pc Renetta Moseley [address] K92.2 Hospitalists DARLENE Cuevas D62 I25.118 R06.02 Office Visit 10/04/2017 1:20p [facility] Patrick Joshua M.D., [address]10[address] Z48.1 Yarding Engineer AT [facility] I21.4 N18.3 D64.9 Office Visit 10/03/2017 10:00a [facility] Of Angelic Olmedo M.D. 32914 Z95.0 [facility] I25.119 K74.60 N18.9 D64.9 I21.4 Office Visit 09/29/2017 9:49a [facility] Shruti Shields, [address] I24.9 Assoc,pc EVP MANAGING DIRECTOR Hospitalists R74.8 K74.69 R07.89 Office Visit 09/29/2017 11:18a [facility] Angelic Olmedo M.D. 17895 I25.10 Yarding Engineer I95.9 Office Visit 09/28/2017 9:48a [facility] Shruti Shields, [address]643 I24.9 Assoc,pc EVP MANAGING DIRECTOR Hospitalists R74.8 K74.69 Office Visit 09/27/2017 2:37p [facility] Angelic Olmedo M.D. 31401 I25.10 Yarding Engineer I95.9 Office Visit 09/27/2017 7:30a [facility] [place] [address] K76.6 Office Visit 09/27/2017 9:24a [facility], Shruti [address]251 R07.89 Hospitalists Dick decker NP R74.8 K74.69 Office Visit 09/27/2017 9:52a [facility] Patrick Joshua M.D., 87656 R79.89 [facility] [facility] FAC, FSCAI Office Visit 09/26/2017 9:22a [facility] Margarita Echavarria N.P. 57931 R07.89 Hospitalists R74.8 K74.69 Office Visit 09/24/2017 3:30p [facility] [place] [address] R55 [facility] E87.70 Z95.0 Office Visit 09/23/2017 12:32p [facility] [place] [address] R55 [facility] Z95.0 Office Visit 09/22/2017 12:34p [facility] [place] [address] R55 [facility] Z95.0 Office Visit 09/21/2017 2:30p [facility] Angelic Olmedo M.D. 23145 Z95.0 [facility] R06.02 I25.10 Office Visit 08/14/2017 2:40p [facility] Tommy Wei, [address] R18.8 Infectious Diseases M.D. Office Visit 07/10/2017 3:40p [facility] Tommy Wei, 77603 K73.9 Infectious Diseases M.D. R18.8 Office Visit 03/30/2017 9:45a [facility] [place] [address] G47.33 [facility] Office Visit 09/27/2016 2:49p [facility] Shruti 18465 K70.31 Hospitalists DARLENE Shields G47.33 I10 Z90.49 Office Visit 08/10/2016 1:30p [facility] [place], [address] K80.20 [facility] FACS Office Visit 03/01/2016 9:45a [facility] [place] [address] G47.33 [facility] K21.9 E66.01 Office Visit 07/07/2014 9:15a [facility]ic Jensen M.D. 87128 724.4 C.M.A. Office Visit 06/30/2014 8:45a [facility] [place] [address] 327.23 [facility] 719.46 Office Visit 06/11/2014 9:15a [facility] Jensen M.D. 51752 715.16 C.M.A. Office Visit 05/28/2014 8:00a [facility] Jensen M.D. 67131 715.16 C.M.A. Office Visit 03/05/2012 11:15a [facility] [place] Dee 20915 845.10 C.M.A. MLowD. Office Visit 02/10/2012 8:15a [facility] [place] 45411 729.5 C.M.A. MLowD. Office Visit 02/03/2012 11:30a [facility] [place] 99418 729.5 C.M.A. M.DLow Plan of Care Future Appointment(s):04/06/2018 4:20 pm - Angelic Olmedo M.D. at [facility]04/06/2018 9:00 am - Miriam Anguiano MD at [facility]03/23/2018 - Angelic Olmedo M.D.I25.119 Athscl heart disease of cahto cor art w unsp ang pctrsComments:Your stress test c/w your stent area blocked, but good function of the heart muscle.Short term: medical management for surgury/procedure.watermaster: Cath and possible balloon procedure for relief of angina.Follow up:March post procedure, any offic, with ECG.Z01.810 Encounter for preprocedural cardiovascular examinationComments: No further testing for the TIPS.You are at risk for angina or even damage to the heart with this procedure, but the risk with this procedure with intervention first could be higher.Z95.0 Presence of cardiac hwkcmvdkjI75.60 Unspecified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 liver
--- OUTSIDE RECORDS SUMMARY | 2018-04-19 10:11 | XMS REPORT ---
:1940 External Reference #:[id number] Author Organization [employer] [facility] Address [address] [place] [address] [place] [address] Phone [phone] Care Team Providers Name Role Phone Franklyn Johnston MD Primary Care Physician Unavailable Payers Type Date Identification Numbers Payment Subscriber Provider Health Maintenance Effective: Policy Number: Medicare Rolly Ashford [facility] ([facility]) 07/31/2016 [id number] Ppo Group Number: [id number] [address] [address] PayID: [id number] SWATI Marcus 13353 Health Maintenance Effective: Policy Number: Medicare Rolly Ugalde ([facility]) 07/31/2013 [id number] [facility] Normaprisca Expires: 07/30/2014 Group Number: [id number] [address] [address] Group Name: Expires 07/30/14 SWATI Marcus 13849 PayID: [id number] Medigap Part B Effective: 01/28/2010 Policy Number: [facility] Diya Ashford [id number] Expires: 07/30/2013 PayID: [id number] [address] [address] SWATI Marcus [id number] Medigap Part B Effective: 12/29/2006 Policy Number: Medicare Diya Jj Ulisesstefano [id number] Expires: 07/30/2013 PayID: [id number] [address] [place] [address] Problems Date Description Provider Status Onset: 07/09/2013 Sprain of foot Bryan Dee M.D. Active Onset: 06/30/2014 Obstructive sleep apnea syndrome Miriam Anguiano MD Active Onset: 03/01/2016 Gastroesophageal reflux disease Miriam Anguiano MD Active Onset: 03/01/2016 Morbid obesity Miriam Anguiano MD Active Onset: 10/03/2017 Cardiac pacemaker in situ Angelic Olmedo M.D. Active Onset: 10/03/2017 Athscl heart disease of egegik cor Angelic Olmedo M.D. Active art w unsp ang pctrs Onset: 10/04/2017 Acute subendocardial infarction Patrick Joshua M.D., [facility], Active [facility] Onset: 10/04/2017 Encounter for planned Patrick Joshua M.D., [facility], Active postprocedural wound closure [facility] Onset: 10/04/2017 Chronic kidney disease stage 3 Patrick Joshua M.D., [facility], Active [facility] Family History Date Family Member(s) Problem(s) Comments [...] s tablet by Rajesh, DO mouth every [facility] day Rosuvastatin 01/10/ Active Tablets 40mg 90tab 1 by mouth Angelic Calcium 2018 s every day Clarita Olmedo Aspir-81 12/07/ Active 81mg 100un 1 tablet po I25.119 Angelic 2018 its daily Clarita Olmedo Metoprolol 09/29/ Active Tablets 25mg 90tab 1/2 by Angelic Tartrate 2018 s mouth twice [place], a day M.D. Nitroglycerin / Active Tablets [...] Angelic Calcium 2018 - s every day Shara, 01/10/ M.D. 2017 Brilinta 09/29/ Hx Tablets 90mg 180ta 1 tab by Angelic 2018 - bs mouth twice [place], 11/06/ day M.D. 2017 Hydrocodone 09/16/ Hx Tablets 5-300mg 14tab 1 tab by Jamilah Mittalrate/Aceta 2017 s mouth every B. minophen 4 hours as [place], needed pain ELECTRIC LOCOMOTIVE FIRER/FIREMAN Hydrocodone 09/16/ Hx Tablets 5-300mg 14tab 1 tab by Jamilah Parrishartrate/Aceta 2017 s mouth every B. minophen 4 hours as [place], needed pain ELECTRIC LOCOMOTIVE FIRER/FIREMAN Zantac 03/01/ Hx Tablets 300mg 90tab 1 [...] I25.119 Angelic 0000 - s every day [place], 12/07/ M.D. 2017 Prednisone /00/ Hx Tablets [...] CPT Code Status Date Vaccine Lot # 21686 Given 05/14/2014 Influenza Virus 3Yrs & Over Vital Signs Date Vital Result Comment 04/06/2018 Height 71 inches 5'11" Weight 203.25 lb Heart Rate 62 /min BP Systolic Sitting 96 mmHg Lue large cuff BP Diastolic Sitting 44 mmHg Lue large cuff Respiratory Rate 16 /min O2 % BldC Oximetry 98 % On Ra BMI (Body Mass Index) 28.3 kg/m2 03/23/2018 Height 71 inches 5'11" Weight [...] 32 finding Antibody Laboratory test 12/02/2016 Cytology Non-Making Machine Catcher SEE RESULT BELOW 33 finding Laboratory test [...] 54 AB Laboratory test finding 09/27/2016 Cytology Non-Making Machine Catcher SEE RESULT BELOW 55 Laboratory test finding [...] [address]: Angelic Olmedo MD Acct: [id number] Unit: [id number] AGE: 77 Location: [facility] Re10/13/17 SEX: M Status: REG REF SPEC: [id number] BRAD: 10/13/17-7[address] [facility] [address]: Angelic Olmedo MD REQ: [id number] RECD: 10/13/17-1313 STATUS: JOVANI SALINAS DR: Franklyn Johnston MD _ SOURCE: STOOL SPDESC: ORDERED: Occult Bl, Diag Procedure Result Reported Site Stool Occult Blood (1) Final 10/13/17- 1415 ML Stool Occult Blood Positive Collection Date (1) 10/13/17 * ML - Main Lab . END OF REPORT DEPARTMENT OF PATHOLOGY, [address] [place] [address] Favian Templeton M.D. Director [facility] # [id number] 8 Because ethnic data is not always [...] CHF [address] Moreno by [id number] at 1734 on 09/26/17. Results read back accurately. 13 Negative result does not rule out HIV infection. If acute HIV infection is suspected in a high-risk individual, submit plasma specimen for HIV-1 RNA quantification test (HIVDQ) and/or HIV-2 DNA/RNA test (FHV2Q). Test Performed by: [facility] [address] [place] [address] 14 Test Result Flag Unit RefValue Strongyloides Ab, IgG, S Negative Negative No detectable levels of IgG antibodies to Strongyloides. Repeat testing in 1-2 weeks if clinically indicated. Test Performed by: [address] [address] 15 If clinical suspicion persists, submit new specimen for retesting in 1 to 2 weeks. Test Performed by: [address] [address] 16 If clinical suspicion persists, submit new specimen for retesting in 1 to 2 weeks. Test Performed by: [address] [address] 17 Test Performed by: [address] [address] 18 If clinical suspicion persists, submit new specimen for retesting in 1 to 2 weeks. Test Performed by: [address] [address] 19 If clinical suspicion persists, submit new specimen for retesting in 1 to 2 weeks. Test Performed by: [address] [address] 20 If clinical suspicion persists, submit new specimen for retesting in 1 to 2 weeks. Test Performed by: [address] [address] 21 If clinical suspicion persists, submit new specimen for retesting in 1 to 2 weeks. Test Performed by: [address] [address] 22 If clinical suspicion persists, submit new specimen for retesting in 1 to 2 weeks. Test Performed by: [address] [address] 23 If clinical suspicion persists, submit new specimen for retesting in 1 to 2 weeks. Test Performed by: [address] [address] 24 If clinical suspicion persists, submit new specimen for retesting in 1 to 2 weeks. Test Performed by: [address] [address] 25 If clinical suspicion persists, submit new specimen for retesting in 1 to 2 weeks. Test Performed by: [address] [address] 26 If clinical suspicion persists, submit new specimen for retesting in 1 to 2 weeks. Test Performed by: [address] [address] 27 If clinical suspicion persists, submit new specimen for retesting in 1 to 2 weeks. Test Performed by: [facility] [place] [address] 28 If clinical suspicion persists, submit new specimen for retesting in 1 to 2 weeks. Test Performed by: [facility] [place] [address] 29 If clinical suspicion persists, submit new specimen for retesting in 1 to 2 weeks. Test Performed by: [facility] [place] [address] 30 If clinical suspicion persists, submit new specimen for retesting in 1 to 2 weeks. Test Performed by: [facility] [place] [address] 31 If clinical suspicion persists, submit new specimen for retesting in 1 to 2 weeks. Test Performed by: [facility] [place] [address] 32 If clinical suspicion persists, submit new specimen for retesting in 1 to 2 weeks. Test Performed by: [facility] [place] [address] 33 SEE RESULT BELOW Name: DIYA ASHFORD : [address]: Timmy Montoya MD Acct: [id number] Unit: [id number] AGE: 76 Location: Re12/02/16 SEX: M Status: REG REF SPEC: [id number] BRAD: 12/02/16-1415 [facility] [address]: Timmy Montoya MD REQ: [id number] RECD: 12/02/16-9031 STATUS: TUNDE SALINAS DR: Isaac Salazar MD [...] Signed (signature on file) Favian Templeton MD 4624 END OF REPORT * ML=Testing performed at Main Lab DEPARTMENT OF PATHOLOGY, [address] [place] [address] Favian Templeton M.D. Director [facility] # [id number] 34 SEE RESULT BELOW Name: DIYA ASHFORD : [address]: Timmy Montoya MD Acct: [id number] Unit: [id number] AGE: 76 Location: SP Re12/02/16 SEX: M Status: REG REF SPEC: [id number] BRAD: 12/02/16-[address]: Timmy Montoya MD REQ: [id number] RECD: 12/02/16 STATUS: TUNDE SALINAS DR: Ari Salazar MD _ ORDERED: Decal, LEVEL 4/2, IMMUNO-FIRST, IMMUNO-ADDL/2, SPEC ST NON-ORG/2 Plasma cell disease has been performed at [facility], [place], [place]. The testing reveals: Specimen: Bone marrow. [...] pathologic correlation is recommended. Test Performed by: [place] [address] CONTINUED ON NEXT PAGE * ML=Testing performed at Main Lab DEPARTMENT OF PATHOLOGY, [address] [place] [address] Favian Templeton M.D. Director [facility] # [id number] RUN DATE: 12/14/16 [facility] LAB LIVE PAGE 2 Patient: DIYA ASHFORD [id number] (Continued) ADDENDUM (Continued) Addendum Signed (signature on file) Sunita Landa MD 1043 B-cell lymphoma has been performed at [facility], [place], [place]. The testing reveals: Specimen: Bone marrow. Method: Locus and probes [Strategy;#Nuclei;Class] 3q27(3'BCL6,5'BCL6) [BAP;200;ASR] 8q24(5'MYC,3'MYC) [BAP;200;ASR] 11q13(CCND1-XT),14q32(IGH-XT) [DFISH;500;ASR] 17p13(TP53),17CEN(D17Z1) [COPY#;200;ASR] 18q21(5'MALT1,3'MALT1) [BAP;200;ASR] 18q21(5'BCL2,3'BCL2) [BAP;200;ASR] Probe strategies include: DFISH=dual color, double fusion; BAP=break-apart probe; COPY#=region gain and loss. Result: Interphase FISH is normal for all loci studied. Result Summary: Normal Result Table: Abnormality Name Result %Abn Cutoff (%) 8q24.1(MYC sep) Normal <6.5% -17p13.1(TP53x1,Z26N6c4) Normal <9.5% -17(TP53,D17Z1)x1 Normal <5.5% 18q21(MALT1 sep) [...] performed at Main Lab DEPARTMENT OF PATHOLOGY, [address] [place] [address] Favian Templeton M.D. Director [facility] # [id number] RUN DATE: 12/14/16 [facility] LAB LIVE PAGE 3 Patient: ULISESSTEFANODIYA [id number] (Continued) ADDENDUM (Continued) Additional cytogenetic studies are reported separately. Test Performed by: [facility] [address] [facility], [place] [address] Addendum Signed (signature on file) Favian Templeton [...] performed at Main Lab DEPARTMENT OF PATHOLOGY, [address] [place] [address] Favian Templeton M.D. Director [facility] # [id number] RUN DATE: 12/14/16 [facility] LAB LIVE PAGE 4 Patient: DIYA ASHFORD [id number] (Continued) SPECIAL STUDIES (Continued) SPECIAL STUDIES Flow cytometry has been performed at [facility], [place], [place]. The testing reveals: FINAL DIAGNOSIS: Specimen Source: Right posterior iliac crest bone marrow Flow cytometry immunophenotypic analysis: Interpretative data: Lambda light chain restricted, CD19 positive, CD10 negative B-cell population detected (4% of WBCs, 19% of gated lymphocytes). [place] light chain restricted plasma cells, (less than [...] Electronically signed by: Favian Templeton MD 12/05/16 3250 Technical component performed by: [facility] - [address] [address] Clinical Mental Health Counselor: Jamie Porter II, MD, PhD. CONTINUED ON NEXT PAGE * ML=Testing performed at Main Lab DEPARTMENT OF PATHOLOGY, [address] [place] [address] Favian Templeton M.D. Director [facility] # [id number] RUN DATE: 12/14/16 [facility] LAB LIVE PAGE 5 Patient: DIYA ASHFORD [id number] (Continued) PRE-OPERATIVE DIAGNOSIS (Continued) PRE-OPERATIVE DIAGNOSIS D47.2 [...] performed at Main Lab DEPARTMENT OF PATHOLOGY, [address] [place] [address] Favian Templeton M.D. Director [facility] # [id number] RUN DATE: 12/14/16 [facility] LAB LIVE PAGE 6 Patient: SALVADORDIYA Анна [id number] (Continued) MICROSCOPIC DESCRIPTION (Continued) Signed (signature on file) Favian Templeton MD 1547 END OF REPORT * ML=Testing performed at Main Lab DEPARTMENT OF PATHOLOGY, [address] [place] [address] Favian Templeton M.D. Director [facility] # [id number] 35 FINAL DIAGNOSIS: Specimen Source: Right posterior iliac crest bone marrow Flow cytometry immunophenotypic analysis: Interpretative data: Lambda light chain restricted, CD19 positive, CD10 negative B-cell population detected (4% of WBCs, 19% of gated lymphocytes). [place] light chain restricted plasma cells, (less than [...] MD 12/05/16 1452 Technical component performed by: [place] [address] Clinical Mental Health Counselor: Jamie Porter II, MD, PhD. 36 RESULT: Monoclonal gammopathy, Hyperlipidemia, unspecified 37 Locus and probes [Strategy;#Nuclei;Class] 3q27(3'BCL6,5'BCL6) [BAP;200;ASR] 8q24(5'MYC,3'MYC) [BAP;200;ASR] 11q13(CCND1-XT),14q32(IGH-XT) [DFISH;500;ASR] 17p13(TP53),17CEN(D17Z1) [COPY#;200;ASR] 18q21(5'MALT1,3'MALT1) [BAP;200;ASR] 18q21(5'BCL2,3'BCL2) [BAP;200;ASR] Probe strategies include: DFISH=dual color, double fusion; BAP=break-apart probe; COPY#=region gain and loss. 38 RESULT: Interphase FISH is normal for all loci studied. 39 Abnormality Name Result %Abn Cutoff (%) 8q24.1(MYC sep) Normal <6.5% -17p13.1(TP53x1,O81Y1p8) Normal <9.5% -17(TP53,D17Z1)x1 Normal <5.5% 18q21(MALT1 sep) [...] Franklyn Pete M.D., Ph.D. Test Performed by: [address] [address] 43 Applicable to Analyte Specific Reagent (ASR) and Laboratory Developed Tests (LDT). This test was developed and its performance characteristics determined by [facility] in a manner consistent with CLIA requirements. [...] developed and its performance characteristics determined by [facility] in a manner consistent with CLIA requirements. It has not been cleared or approved by the U.S. Food and Drug Administration. This FISH test does not rule out other chromosome abnormalities. 51 RESULT: Della Bell D.O. Test Performed by: [address] [address] 52 SEE RESULT BELOW Name: DIYA ASHFORD : [address]: Ari Salazar MD Acct: [id number] Unit: [id number] AGE: 76 Location: [facility] Re11/04/16 SEX: M Status: REG REF SPEC: [id number] BRAD: 11/04/16-125[facility] DR: Isaac Ruiz MD REQ: [id number] RECD: 11/04/16-1341 STATUS: TUNDE SALINAS DR: Franklyn Guillen MD [...] END OF REPORT * ML=Testing performed at [facility] Lab DEPARTMENT OF PATHOLOGY, [address] [place] [address] Favian Templeton M.D. Director [facility] # [id number] 53 Because ethnic data is not always [...] developed and its performance characteristics determined by [facility] in a manner consistent with CLIA requirements. This test has not been cleared or approved by the U.S. Food and Drug Administration. Test Performed by: [address] [address] 55 SEE RESULT BELOW Name: DIYA ASHFORD : [address]: Gonzalo Nunez MD Acct: [id number] Unit: [id number] AGE: 76 Location: [place] [address] Re09/27/16 SEX: M Status: ADM Kiel SPEC: [id number] BRAD: 09/27/16-1640 [facility] DR: Gonzalo Nunez MD REQ: [id number] RECD: 02/28/17-1700 STATUS: SOUT _ ORDERED: THIN PREP NON G FINAL DIAGNOSIS Peritoneal fluid: -- Negative for malignant cells. -- Mixed lymphoid elements, macrophages and scattered mesothelial elements only. 1. PERITONEAL - PERITONEAL FLUID GROSS DESCRIPTION 35 mls of cloudy yellow/green fluid. Signed (signature on file) Favian Templeton MD 1327 END OF REPORT * ML=Testing performed at Main Lab DEPARTMENT OF PATHOLOGY, [address] [place] [address] Favian Templeton M.D. Director [facility] # [id number] 56 SEE RESULT BELOW Name: DIYA ASHFORD : [address]: Gonzalo Nunez MD Acct: [id number] Unit: [id number] AGE: 76 Location: [facility] 332-01 Re09/27/16 Dis: 09/28/16 SEX: M Status: DIS Kiel SPEC: [id number] BRAD: 09/27/16- SUBM DR: Gonzalo Nunez MD REQ: [id number] RECD: 09/27/16 STATUS: SOUT _ ORDERED: TRICHROME [...] and the wall thickness averages 0.1 cm. Saddle Maker sections, one cassette. 2. The specimen is received in formalin labeled, Liver Biopsy, and consists of a 1.5 x 0.1 CONTINUED ON NEXT PAGE * ML=Testing performed at Main Lab DEPARTMENT OF PATHOLOGY, [address] [place] [address] Favian Templeton M.D. Director [facility] # [id number] RUN DATE: 09/29/16 [facility] LAB LIVE PAGE 2 Patient: DIYA ASHFORD [id number] (Continued) GROSS DESCRIPTION (Continued) GROSS DESCRIPTION (Continued) cm patten soft tissue core admixed with scant red-brown blood clot. Entirely submitted, one cassette. Signed (signature on file) Favian Templeton MD 1647 END OF REPORT * ML=Testing performed at Main Lab DEPARTMENT OF PATHOLOGY, [facility] [employer] [place], [place] [address] Favian Templeton M.D. Director [facility] # [id number] 57 RUN DATE: 06/01/14 [facility] LAB LIVE PAGE 1 RUN TIME: 814 [facility] [employer] [place], [place] [address] Specimen Inquiry Name: DIYA ASHFORD Анна : [address]: Dominic Jensen MD Acct: [id number] Unit: [id number] AGE: 74 Location: [facility] Re05/28/14 SEX: M Status: REG REF SPEC: [id number] BRAD: 05/28/14 [facility] DR: Dominic Jensen MD REQ: [id number] RECD: 05/28/14 STATUS: COMP _ SOURCE: JOINT FLUI SPDESC:KNEE LEFT ORDERED: BF Cult/GS Procedure Result Verified Site Body Fluid Gram Stain Final 05/28/14- 1055 ML 4+ Neutrophils No Organisms Seen BY CENTRIFUGED SMEAR Body Fluid Culture Final 06/01/14- 0815 ML No Growth Day 4 END OF REPORT * ML=Testing performed at Main Lab DEPARTMENT OF PATHOLOGY, [address] [place] [address] Favian Templeton M.D. Director [facility] # [id number] 58 Synovial (Joint) Fluid Procedures Date CPT Code Description Status 03/14/2018 48740 Treadmill Interp/Report Only Completed 03/14/2018 36578 Stress Test Supervsn W/Out I/R Completed 03/08/2018 96501 EKG Tracing & Interpretation Completed 02/27/2018 80018 EKG Tracing & Interpretation Completed 02/22/2018 48568 Pace Maker Eval W/Iterative Adjment Dual Lead Completed 02/22/2018 13715 Pace Maker Eval W/Iterative Adjment Dual Lead Completed 02/22/2018 31971 EKG Tracing & Interpretation Completed 12/07/2017 57609 EKG Tracing & Interpretation Completed 11/30/2017 50846 Stress Test Supervsn W/Out I/R Completed 11/30/2017 19285 Treadmill Interp/Report Only Completed 10/10/2017 69507 Stress Test Completed 10/10/2017 05645 Myocardial Perfusion Imaging Tomographic (Spect) Completed Multiple Studies 10/03/2017 44490 EKG Tracing & Interpretation Completed 09/29/2017 27276 ECHO Transthorasic Realtime 2D W Doppler & Color Flow Completed Hosp 09/29/2017 40219 EKG, Interpretation Only Completed 09/28/2017 00418 Cath PLMT&NJX L Ventriculog Img S&I Completed 09/28/2017 68990 Interrogation Device Eval In Person W/DR Completed Analysis,Single,Dual,Mul 09/28/2017 50120 EKG, Interpretation Only Completed 09/28/2017 92911 Revascularization Acute Total/Subtotal Occlusion Completed 09/27/2017 02802 EKG, Interpretation Only Completed 09/25/2017 74803 EKG, Interpretation Only Completed 09/25/2017 64165 Removal With Replacement Dual Lead System Pulse Completed Generator 09/24/2017 38148 Interrogation Device Eval In Person W/DR Completed Analysis,Single,Dual,Mul 09/22/2017 28611 ECHO Transthorasic Realtime 2D W Doppler & Color Flow Completed Hosp 09/22/2017 59544 EKG, Interpretation Only Completed 09/22/2017 03103 EKG, Interpretation Only Completed 02/23/2017 61475 ECHO Transthorasic Realtime 2D W Doppler & Color Flow Completed Hosp 11/04/2016 38181 Catheter Placement Venous Second Order Branch Completed 11/04/2016 52036 Transcatheter Biopsy Completed 11/04/2016 89434 Venography Liver W/Hemodynamic Evaluation Completed 11/04/2016 99277 Transcatheter Biopsy Radiology Completed 11/04/2016 72081 Ultrasound Guidance For Vascular Access Completed 09/27/2016 91052 Laparoscopy Cholecystectomy Completed 09/27/2016 29656 Laparoscopy Cholecystectomy Completed 09/27/2016 37187 Biopsy Liver W/Other Major Procedure Completed 05/28/2014 10239 Rad Exam; Knee, Ap&L Completed 05/28/2014 00215 Rad Exam; Knee, Ap&L Completed 05/28/2014 64909 Rad Exam; Pelvis Completed 02/03/2012 39983 Rad Exam; Foot Comp Completed Encounters Type Date Location Provider CPT E/M Dx Office Visit 04/06/2018 Pul[facility] [place] [address] G47.33 9:00a [facility] Office Visit 03/23/2018 [facility] Angelic Olmedo M.D. 38114 I25.119 4:20p [facility] Z01.810 Z95.0 K74.60 Office Visit 03/08/2018 1:30p [facility] Angelic Olmedo M.D. 09106 I25.119 [facility] Z95.0 K76.6 E78.5 Office Visit 02/27/2018 10:20a [facility] [place] [place] [address] I20.9 [facility] FACC Office Visit 02/05/2018 10:45a [facility] [place], [address] K40.90 [facility] FACS K74.60 R18.8 Office Visit 12/21/2017 2:45p [facility] Nikunj Bonds, 32798 M16.0 Andre MEZA M25.562 M25.561 Office Visit 12/07/2017 1:45p [facility] Angelic Olmedo M.D. 15339 I25.119 [facility] D64.9 N18.3 Z95.0 K74.60 Office Visit 10/19/2017 2:00p [facility] Cece Barajas, [address]152 K92.2 Hospitalists ELECTRIC LOCOMOTIVE FIRER/FIREMAN D62 R06.02 I25.118 Office Visit 10/18/2017 12:04p [facility] Angelic Olmedo M.D. 46287 K27.4 [facility] I21.4 I25.10 Office Visit 10/18/2017 1:59p [facility] Cece Barajas, [address] K92.2 Hospitalists ELECTRIC LOCOMOTIVE FIRER/FIREMAN D62 R06.02 I25.118 Office Visit 10/17/2017 1:58p [facility] Cece Barajas, [address] K92.2 Hospitalists ELECTRIC LOCOMOTIVE FIRER/FIREMAN D62 I25.118 R06.02 Office Visit 10/16/2017 10:32a [facility] [place], [address] I25.10 Ronal Otto K92.2 Office Visit 10/16/2017 1:57p [facility], Renetta Moseley 97808 K92.2 Hospitalists DARLENE Cuevas D62 I25.118 R06.02 Office Visit 10/04/2017 1:20p [facility] Patrick Joshua M.D., 35842 Z48.1 Drilling Contractor AT [facility] I21.4 N18.3 D64.9 Office Visit 10/03/2017 10:00a [facility] Meryl Olmedo M.D. 45147 Z95.0 Drilling Contractor I25.119 K74.60 N18.9 D64.9 I21.4 Office Visit 09/29/2017 9:49a [facility] Shruti Shields, 29445 I24.9 Assoc,pc ELECTRIC LOCOMOTIVE FIRER/FIREMAN Hospitalists R74.8 K74.69 R07.89 Office Visit 09/29/2017 11:18a [facility] Meryl Olmedo M.D. 24450 I25.10 Drilling Contractor I95.9 Office Visit 09/28/2017 9:48a [facility] Shruti Shields, [address] I24.9 Assoc,pc ELECTRIC LOCOMOTIVE FIRER/FIREMAN Hospitalists R74.8 K74.69 Office Visit 09/27/2017 [facility] Shruti Shields, 59065 R07.89 9:24a Assoc,pc ELECTRIC LOCOMOTIVE FIRER/FIREMAN Hospitalists R74.8 K74.69 Office Visit 09/27/2017 7:30a [facility] [place] [address] K76.6 Office Visit 09/27/2017 9:52a [facility] Patrick Joshua, [address] R79.89 AT [facility] MPolly, FACC, [facility] Office Visit 09/27/2017 2:37p [facility] Angelic Olmedo, 27937 I25.10 Clarita I95.9 Office Visit 09/26/2017 9:22a [facility] Margarita Echavarria, N.P. 830[address] R07.89 Hospitalists R74.8 K74.69 Office Visit 09/24/2017 3:30p [facility] Of [facility] [place] [address] R55 FACC E87.70 Z95.0 Office Visit 09/23/2017 12:32p [facility] Of [facility] [place] [address] R55 FACC Z95.0 Office Visit 09/22/2017 12:34p [facility] [place] [address] R55 FACC Z95.0 Office Visit 09/21/2017 2:30p [facility] Angelic Olmedo M.D. 28022 Z95.0 [facility] AT [facility] R06.02 I25.10 Office Visit 08/14/2017 2:40p [facility] Tommy Wei, 35660 R18.8 Infectious Diseases M.D. Office Visit 07/10/2017 3:40p [facility] Allison Wei, 37069 K73.9 Infectious Diseases MLowD. R18.8 Office Visit 03/30/2017 9:45a [facility] [place] [address] G47.33 Services Of [facility] Office Visit 09/27/2016 2:49p [facility], Shruti 62645 K70.31 Hospitalists DARLENE Shields G47.33 I10 Z90.49 Office Visit 08/10/2016 1:30p [facility] [place], [address] K80.20 [facility] FACS Office Visit 03/01/2016 9:45a [facility] [place] [address] G47.33 Services Of [facility] K21.9 E66.01 Office Visit 07/07/2014 9:15a [facility] Of Dominic Jensen M.D. 00848 724.4 C.M.A. Office Visit 06/30/2014 8:45a [facility] [place] [address] 327.23 Services Of [facility] 719.46 Office Visit 06/11/2014 9:15a [facility] Dominic Jensen M.D. 33530 715.16 C.M.A. Office Visit 05/28/2014 8:00a [facility] Dominic Jensen M.D. 07995 715.16 C.M.A. Office Visit 03/05/2012 11:15a [facility] Of Bryan Dee 91693 845.10 C.M.ALow MSwapna. Office Visit 02/10/2012 8:15a [facility] [place] Dee 15050 729.5 C.M.ALow MSwapna. Office Visit 02/03/2012 11:30a [facility] [place] Dee 39088 729.5 C.M.ALow MPolly Plan of Care Future Appointment(s):04/08/2019 10:30 am - Miriam Anguiano MD at [facility]ology [facility] Sleep Services Of [facility]04/06/2018 - Miriam Anguiano MDG47.33 Obstructive sleep apnea (adult) (pediatric)Follow up:1 year
[2018-04-19] MEDS ORDERED: NS 0.9% 1000 ML* 1,000 ML IV ONE (10:33)
[2018-04-19] MEDS ORDERED: Pantoprazole IV* 40 MG IV ONE (10:33)
[2018-04-19] MEDS ORDERED: fentaNYL* 50 MCG/ML 2 ML VIAL (100 MCG VIAL) ONE (14:47)
[2018-04-19] MEDS ORDERED: Midazolam* 1 MG/ML 10 ML VIAL (10 MG) ONE (14:48)
--- NOTE | 2018-04-19 14:58 | RAD ---
HISTORY: GI bleed COMPARISONS: None VIEWS: Frontal views of the abdomen. FINDINGS: BOWEL: There is a nonspecific bowel gas pattern, with nondilated small bowel gas noted. There is a large amount of stool within the colon. CALCULI: There are no abnormal calculi. BONES AND SOFT TISSUES: Degenerative changes are noted . OTHER FINDINGS: The lung bases are clear. There is no subphrenic gas. A metallic stent is noted overlying the right upper quadrant, possibly a TIPS. IMPRESSION: NONSPECIFIC BOWEL GAS PATTERN. LARGE AMOUNT OF STOOL THROUGHOUT THE COLON.
[2018-04-19 15:04] LABS: INR 0.95 (0.77-1.02)
[2018-04-19 15:07] LABS: EGFR Non-African American 30.9 (>60)
--- NOTE | 2018-04-19 15:32 | ED ---
Abdominal Pain/Male - HPI Summary HPI Summary: This patient is a 78 year old M presenting to [facility] accompanied by his with a chief complaint of melena since 4 days ago. 2 weeks ago, patient underwent a TIPS procedure with Dr. Perales in [place] 03/28/18. Pt states he suffered a resulting W[place], and was given 4x stents and prescribed Plavix. Pt had blood transfusion 04/16/18 due to low H&H with Dr. Guillen, but the cause was not determined. He endorses current associated sx of nausea, fatigue, and mild abd pain. - History of Current Complaint Chief Complaint: EDGIBleed Stated Complaint: DARK/BLOODY STOOL Time Seen by Provider: 04/19/18 10:24 Hx Obtained From: Patient Onset/Duration: Sudden Onset, Lasting Days, Still Present Timing: Constant Severity Initially: Mild Severity Currently: Mild Location: Diffuse Radiates: No Character: Dull Aggravating Factor(s): Nothing Alleviating Factor(s): Nothing Associated Signs And Symptoms: Positive: Dizzy, Blood in Stool - melena, Nausea , Other - fatigue. Negative: Fever - Allergies/Home Medications Allergies/Adverse Reactions: Allergies Allergy/AdvReac Type Severity Reaction Status Date / Time Adhesive Tape Allergy Unknown Verified 04/19/18 10:01 Reaction Details horse dander Allergy Swelling Verified 04/19/18 10:01 Horse/Equine Containing Allergy Hives Verified 04/19/18 10:01 Products latex Allergy Unknown Verified 04/19/18 10:01 Reaction Details midodrine Allergy Unknown Verified 04/19/18 10:01 Reaction Details HORSE SERUM Allergy Severe Swelling, Uncoded 04/16/18 17:38 hives Home Medications: Home Medications Aspirin EC TAB* [Ecotrin EC Low Dose 81 MG*] 81 mg PO DAILY 04/19/18 [History Confirmed 04/19/18] Clopidogrel TAB* [Plavix TAB*] 75 mg PO DAILY 04/19/18 [History Confirmed ] Furosemide TAB* [Lasix TAB*] 20 mg PO DAILY 04/19/18 [History Confirmed 04/19/18 ] Metoprolol Succinate XL TAB* [Toprol XL TAB*] 12.5 mg PO BID 04/19/18 [History Confirmed 04/19/18] Pantoprazole TAB (NF) [Protonix TAB (NF)] 40 mg PO DAILY 04/19/18 [History Confirmed 04/19/18] Rosuvastatin (NF) [Crestor (NF)] 40 mg PO DAILY 04/19/18 [History Confirmed ] PMH/Surg Hx/FS Hx/Imm Hx Endocrine/Hematology History: Reports: Hx Anemia Cardiovascular History: Reports: Hx Angina, Hx Coronary Artery Disease, Hx Hypercholesterolemia, Hx Hypertension, Hx Myocardial Infarction, Hx Pacemaker/ ICD - pacemaker Respiratory History: Reports: Hx Sleep Apnea - current CPAP user GI History: Reports: Hx Cirrhosis, Hx Gastroesophageal Reflux Disease, Hx Irritable Bowel History: Reports: Other Problems/Disorders - weak bladder s/p bladder cancer Musculoskeletal History: Denies: Hx Rheumatoid Arthritis Sensory History: Reports: Hx Contacts or Glasses Denies: Hx Hearing Aid Opthamlomology History: Reports: Hx Contacts or Glasses Neurological History: Denies: Hx Headaches, Hx Seizures, Hx Transient Ischemic Attacks (TIA) Psychiatric History: Denies: Hx Autism, Hx Schizophrenia - Cancer History Cancer Type, Location and Year: bladder cancer - Surgical History Surgery Procedure, Year, and Place: cataract surgery with lens implants bilat eyes. hammer toe repair bilat feet. appendectomy. cholecystectomy Hx Anesthesia Reactions: No Infectious Disease History: No Infectious Disease History: Denies: Traveled Outside the [place] in Last 30 Days - Family History Known Family History: Positive: Cardiac Disease Negative: Hypertension, Diabetes - Social History Occupation: Retired Lives: With Family Alcohol Use: None Alcohol Amount: none since August when issues started Substance Use Type: Reports: None Hx Tobacco Use: No Smoking Status (MU): Former Smoker Have You Smoked in the Last Year: No Review of Systems Positive: Fatigue. Negative: Fever Positive: Abdominal Pain, Nausea, Other - melena Positive: no symptoms reported Neurological: Other - dizziness All Other Systems Reviewed And Are Negative: Yes Physical Exam - Summary Physical Exam Summary: VITAL SIGNS: Reviewed. GENERAL: Patient is a well-developed and nourished male who is lying comfortable in the stretcher. Patient is not in any acute respiratory distress. HEAD AND FACE: No signs of trauma. No ecchymosis, hematomas or skull depressions. No sinus tenderness. EYES: PERRLA, EOMI x 2, No injected conjunctiva, no nystagmus. EARS: Hearing grossly intact. Ear canals and tympanic membranes are within normal limits. MOUTH: Oropharynx within normal limits. NECK: Supple, trachea is midline, no adenopathy, no JVD, no carotid bruit, no c- spine tenderness, neck with full ROM. CHEST: Symmetric, no tenderness at palpation LUNGS: Clear to auscultation bilaterally. No wheezing or crackles. CVS: Regular rate and rhythm, S1 and S2 present, no murmurs or gallops appreciated. ABDOMEN: Soft, non-tender. Positive distention. No rebound no guarding, and no masses palpated. Bowel sounds are normal. EXTREMITIES: FROM in all major joints, no edema, no cyanosis or clubbing. NEURO: Alert and oriented x 3. No acute neurological deficits. Speech is normal and follows commands. SKIN: Dry and warm RECTAL: No hemorrhoids or gross blood, positive melena Triage Information Reviewed: Yes Vital Signs On Initial Exam: Initial Vitals Temp Pulse Resp BP Pulse Ox 98.1 F 66 16 116/46 100 04/19/18 09:55 04/19/18 09:55 04/19/18 09:55 04/19/18 09:55 04/19/18 09:55 Vital Signs Reviewed: Yes Diagnostics - Vital Signs Vital Signs Temp Pulse Resp BP Pulse Ox 04/19/18 09:55 98.1 F 66 16 116/46 100 - Laboratory Result Diagrams: 04/20/18 12:27 04/20/18 05:03 Lab Statement: Any lab studies that have been ordered have been reviewed, and results considered in the medical decision making process. - Radiology abd XR Xray Interpretation: Positive (See Comments) Radiology Interpretation Completed By: Radiologist - NONSPECIFIC BOWEL GAS PATTERN. LARGE AMOUNT OF STOOL THROUGHOUT THE COLON. Dr. Estrada has reviewed this report. - EKG 1059 Cardiac Rate: NL - 61 EKG Rhythm: Sinus Rhythm ST Segment: Normal EKG Interpretation: Atrial paced, no STEMI Re-Evaluation - Re-Evaluation First Eval Re-Evaluation Time: 12:55 Change: Unchanged Comment: Discussed possible transfer, patient suggested speaking with dr. Herman Looney in [place]. Abdominal Pain Fem Course/Dx - Course Course Of Treatment: This patient is a 78-year-old male who presents to the emergency department with chief complaint of having black stools. Patient reports that he had a TIPS procedure about 2 weeks ago in [place] with Dr. Perales and Dr. Looney and subsequently the patient developed an myocardial infarction. Patient had 4 stents and he was placed on Plavix. 4 days ago he noticed that his stools were becoming black and now he is complaining of some weakness and continue with the black stools. Patient denies any chest pain or abdominal pain. Patient continue taking Plavix. Initially the patient was placed in a patient monitor, 2 IV access was obtained and normal saline was given. The patient also was given Protonix 80 mg IV. The patient continues to be hemodynamically stable alert and oriented 3. The rectal exam was positive melena. Blood work without any significant abnormality except for hemoglobin of 7.4 hematocrit 22.2. I discussed the case with Dr. Shady Reinoso from GI and he recommends for the patient to be transferred back to [place]. We paged Dr. Looney patients GI doctor in [place]. He recommends for the patient to be scoped end [facility] instead of transfer the patient to [place]. He will speak himself with Dr. Ruiz who is the [facility] GI doctor and he will let me know what would be the next the plan for the patient. Again I was able to speak with Dr.Riordan JOSEPH and actually he will consult for the patient. He reports that he will do an endoscopy this afternoon. The patient last time he ate was last night. The patient continues to be nothing by mouth. At this point I discussed my physical exam, findings and test results with Dr. Escamilla in the hospital services and he will be admitted the patient to his services for further workup and management. At this point the patient continued to be hemodynamically stable alert and oriented 3. - Diagnoses Differential Diagnosis/HQI/PQRI: Constipation, Diverticulitis, Other - Upper GI and Lower GI bleed Provider Diagnoses: GI bleed - Provider Notifications Discussed Care Of Patient With: Angelic Olmedo Time Discussed With Above Provider: 12:30 Instructed by Provider To: Other - will send medical records. - Critical Care Time Critical Care Time: 75-104 min Discharge - Sign-Out/Discharge Documenting (check all that apply): Patient Departure - admit - Discharge Plan Condition: Fair Disposition: ADMITTED TO [facility] - Billing Disposition and Condition Condition: FAIR Disposition: Admitted to [facility] - Attestation Statements Document Initiated by Scribe: Yes Documenting Scribe: Miguel Garcia Provider For Whom Scribe is Documenting (Include Credential): Dr. Santos Estrada MD Scribe Attestation: I, Miguel Garcia, scribed for Dr. Santos Estrada MD on 04/20/18 at 1518. Scribe Documentation Reviewed: Yes Provider Attestation: The documentation as recorded by the scribe, Miguel Garica accurately reflects the service I personally performed and the decisions made by me, Dr. Santos Estrada MD Consult Consult: 1250: Dr. Reinoso: recommends transfer to [place]. 1400: Dr. Looney in [place]: will speack with Dr. Mir, would like pt to have endoscopy at [facility], not be transferred. 1420: Dr. Renioso: will scope patient. 1430: Dr. Escamilla: accepts admission.
[2018-04-19] MEDS ORDERED: PEG 3000 GI LAVAGE* 1 GALLON PO ONE (17:06)
[2018-04-19] MEDS ORDERED: Acetaminophen TAB* 325 MG PO PRN (17:07)
[2018-04-19] MEDS ORDERED: Ondansetron INJ* 2 MG/ML VIAL IV PRN (17:07)
[2018-04-19 17:49] LABS: Hematocrit 19 % (42-52); Hemoglobin 6.3 g/dl (14.0-18.0)
[2018-04-19 18:34] LABS: ABS Basophils 0 10^3/ul (0-0.2); ABS Eosinophils 0 10^3/ul (0-0.6); ABS Lymphocytes 0.7 10^3/ul (1.0-4.8); ABS Monocytes 0.3 10^3/ul (0-0.8); ABS Neutrophils 2.1 10^3/ul (1.5-7.7); ABS Nucleated RBC 0 10^3/ul; Eosinophil % 0.5 % (0-6); Hematocrit 22 % (42-52); Hemoglobin 7.4 g/dl (14.0-18.0); Lymphocyte % 22.8 % (25-47); Mean Corpuscular HGB Conc 33 g/dl (31-36); Mean Corpuscular Hemoglobin 30 pg (27-31); Mean Corpuscular Volume 91 fL (80-94); Mean Platelet Volume 8.7 um3 (7.4-10.4); Nucleated Red Blood Cells % 0; Platelet Count 218 10^3/ul (150-450); Red Blood Count 2.43 10^6/ul (4.00-5.40); Red Cell Distribution Width 18 % (10.5-15); White Blood Count 3.1 10^3/ul (3.5-10.8)
--- NOTE | 2018-04-19 18:59 | RAD ---
EXAM: US Duplex Right Lower Extremity Veins CLINICAL HISTORY: 78 years old, male; Signs and symptoms; Swelling of limb; Lower extremity, right; Additional info: Unilateral leg swelling TECHNIQUE: Real-time duplex ultrasound scan of the right lower extremity veins integrating B-mode two-dimensional vascular structure, Doppler spectral analysis, color flow Doppler imaging and compression. COMPARISON: US LE VEIN BI VL LOWER EXT VEINS BILATERAL 10/19/2017 10:56 AM FINDINGS: Deep veins: Unremarkable. No DVT in the visualized common femoral, femoral, proximal deep femoral or popliteal veins. The veins demonstrate normal color flow, are normally compressible, with normal phasic flow and/or augmentation response. Superficial veins: Unremarkable. No thrombus in the visualized great saphenous vein. Soft tissues: No acute findings. No popliteal cyst. IMPRESSION: Normal right lower extremity duplex venous ultrasound. No DVT seen in the right leg.
[2018-04-19] MEDS: Pantoprazole IV* 40 MG IV SCH (19:36)
--- NOTE | 2018-04-19 21:33 | CONS ---
CONSULTATION REPORT: DATE OF CONSULT: 04/19/18 REASON FOR CONSULT: Melena, recent TIPS procedure, idiopathic portal hypertension. HISTORY OF PRESENT ILLNESS: This is a very pleasant 78-year-old male, who has idiopathic portal hypertension, who presented to the emergency room with 3 days of melena. He recently underwent a TIPS procedure up at [facility] where he actually had an acute myocardial infarction during the procedure and had an NSTEMI with a peak troponin of around 33. He was stented with a drug-eluting stent and placed on aspirin and Plavix. Since then, he has had intermittent dark stool, but for the last 3 days, it has been continuous dark stool. He did have an upper endoscopy up at [facility], which per verbal report did have small varices, but nothing acutely bleeding. Today, he states no abdominal pain. He feels like the ascites in his belly is better. He denies any fever, chills, nausea, vomiting. He denies any ronald abdominal discomfort. He does admit to black tarry stool. No gross hematochezia. Denies dysphagia or odynophagia. Denies additional NSAID use outside of the aspirin. The TIPS was placed for refractory ascites. PAST MEDICAL HISTORY: Includes coronary artery disease, recent stenting at [facility]; recent TIPS procedure for portal hypertension with refractory ascites, portal hypertension of unknown etiology; CHF; renal insufficiency; sleep apnea; and sick sinus syndrome. PAST SURGICAL HISTORY: Includes appendectomy, pacemaker x2, bladder surgery, TURP, cholecystectomy, cataract removal, TIPS with a complication of [place]. MEDICATIONS AT HOME: Include: 1. Aspirin. 2. Plavix. 3. Metoprolol. 4. Pantoprazole. 5. Rosuvastatin. 6. Lasix. 7. Spironolactone. ALLERGIES: No known drug allergies. FAMILY HISTORY: No family history of colorectal cancer or liver cancer in the family or cirrhosis. SOCIAL HISTORY: He does not smoke, does not consume alcohol. 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 REVIEW OF SYSTEMS: The remainder of the 14-point review of systems was grossly negative. PHYSICAL EXAM: Vital Signs: In the emergency room, pulse 60, respiratory rate 14, blood pressure 105/57, 100% on room air, and 97.7. In general, he is alert and oriented. HEENT: Atraumatic, normocephalic. Pupils are equal, round, reactive to light. Conjunctivae are pale. Cardiovascular: Regular rate and rhythm. S1, S2. Respiratory: Mild rales at the base. Abdomen is soft, nontender, nondistended. Bowel sounds are positive. Mild shifting dullness appreciated. 1+ edema bilaterally. Neuro exam is nonfocal. No gross skin rashes or lesions. LABORATORY DATA: Hemoglobin is 7.4, hematocrit is 22, WBC count is 3.1, platelet count is 218. Sodium 136, potassium is 4.4, chloride 111, BUN is 42, creatinine is 2.1. Alkaline phosphatase 170, ALT is 36, AST is 36. ASSESSMENT AND PLAN: This is a 78-year-old male with idiopathic portal hypertension. I did have the emergency room to reach out to his transplant tip stretcher at [facility]. They would prefer an upper endoscopy be done here to evaluate and stabilize any bleeding if necessary. If there is evidence of varices will plan banding and transfer to [facility] for TIPs re-evaluation. I will plan urgent upper endoscopy to evaluate. Colonoscopy if negative. He is high risk given his prior myocardial infarction during procedure (TIPS). In the meantime, agree with IV pantoprazole and Sandostatin. H and H q.6 hours. Keep 2 units of PRBCs on hold at all times. He should be on oxygen therapy and keep the head of his bed elevated above 30 degrees at all times. Further recommendations to follow after upper endoscopy. [id number]/[facility] #: [id number] [facility]
--- NOTE | 2018-04-19 22:56 | HP ---
CC: Dr. Franklyn Johnston; Dr. Angelic Olmedo; Dr. Shady Reinoso * ADMISSION HISTORY AND PHYSICAL: DATE OF ADMISSION: 04/19/18 PRIMARY CARE PROVIDER: Franklyn Johnston MD OUTPATIENT BENEFITS TECHNICIAN: Angelic Olmedo MD CONSULTING SEED CONE PICKER: Shady Reinoso DO MY ATTENDING WHILE IN THE HOSPITAL: Luis Manuel Edwards MD * (DICTATED BY KATIE MAI) CHIEF COMPLAINT: Melena x3 days. HISTORY OF PRESENT ILLNESS: Mr. 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 After his surgery, the patient developed chest pain, which radiated to both of his arms and associated with troponin elevation up to 33. The patient had a catheterization with 4 drug- eluting stents placed. The patient at that time was started on aspirin and Plavix. The patient while inpatient there had 2 paracenteses draining a total of 6 L. The patient has been doing well after his surgeries except for anemia found on his followup appointment on Monday, at [place] at which time he was transfused 1 unit there, unsure what his hemoglobin was at that time. The patient then developed melena, having about 2 bowel movements a day. No bright red blood per rectum. No abdominal pain. The patient has had slight dizziness with standing which passes quickly. The patient has had no presyncope. The patient is not having nausea, vomiting, chest pain, shortness of breath. The patient has never had anything like this before. The patient has had ascites for one and half years. The patient's most recent colonoscopy was 5 years ago. The patient 3 weeks ago noticed worsening swelling in his legs, right more than left. The patient has not been producing much urine as he was previously on his diuretic dose. The patient recently stopped his Imdur by his automatic toe laster due to hypotension. The patient has MGUS and follows with Dr. Guillen, but has not had any changes in this recently. The patient has not had any recent significant changes in his weight. He has lost a lot of muscle mass according to his . The patient in the emergency department was seen Dr. Shady Reinoso of gastroenterology who did an endoscopy, which showed no varices, no ulcers, no upper gastrointestinal bleeding, and no bleeding from the TIPS site. He recommended admission for observation and he was referred to the hospitalist service. PAST MEDICAL HISTORY: 1. Cryptogenic ascites status post TIPS procedure. 2. Coronary artery disease status post NSTEMI earlier this month with stent placement x4. 3. Chronic kidney disease. 4. MGUS. 5. SALEEM. 6. Sick sinus syndrome status post pacemaker. 7. Hernia. PAST SURGICAL HISTORY: 1. TIPS procedure. 2. Pacemaker implantation. 3. Cholecystectomy. 4. Appendectomy. 5. Cardiac catheterization. MEDICATIONS: 1. Plavix 75 mg p.o. daily. 2. Metoprolol 12.5 mg p.o. b.i.d. 3. Aspirin 81 mg p.o. daily. 4. Nitroglycerin 0.4 mg p.r.n. for angina. 5. Protonix 40 mg p.o. daily. 6. Crestor 40 mg p.o. daily. 7. Lasix 20 mg p.o. daily. 8. Spironolactone 50 mg p.o. daily. ALLERGIES: HORSE SERUM. FAMILY HISTORY: The patient's father of bladder cancer. The patient is unknown of what the patient's mother of. The patient's brother has thyroid and intestinal cancer. The patient has several siblings who also have hypercholesterolemia, but no other significant family history. SOCIAL HISTORY: The patient smoked for 30 years, but quit 25 years ago. The patient drinks alcohol occasionally. The patient does not use illicit drugs. 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 The patient is , has 4 children. The patient's surrogate decision maker will be his , Caroline Ashford. REVIEW OF SYSTEMS: A 14-point review of systems was reviewed and is negative except as above in the HPI. PHYSICAL EXAMINATION GENERAL: The patient is a 78-year-old male who appears stated age, sitting comfortably in bed, in no acute distress. VITAL SIGNS: At the time of evaluation, temperature 98.1, pulse rate 66, respiratory rate 16, oxygen saturation 100% on 2 L, blood pressure 105/55. HEENT: Head: Normocephalic, atraumatic. Sclerae anicteric. No conjunctival injection. Nasal mucosa moist. Oral mucosa pale. No pharyngeal erythema, discharge, or exudate. NECK: Supple, nontender. No lymphadenopathy. No carotid bruit auscultated. No JVD. RESPIRATORY: Clear to auscultation bilaterally. No wheezes, rales, or rhonchi. Good air exchange bilaterally. CARDIAC: Grade 2/6 systolic murmur heard best at the apex. Pulses 2+ in the bilateral dorsalis pedis, posterior tibialis, and radial areas. 3+ pitting edema in right lower extremity, 1+ in the left lower extremity. ABDOMEN: Distended. No hepatosplenomegaly. No abdominal bruits auscultated. Bowel sounds present, normoactive in all 4 quadrants. GENITOURINARY: No suprapubic or CVA tenderness. NEURO: Cranial nerves II through XII intact. No focal deficits. Alert and oriented x3. PSYCHIATRIC: Pleasant and cooperative. SKIN: Clean, dry, intact. No rash. LABORATORY DATA: White blood cell count 2.43, hemoglobin 7.4, hematocrit 22.2 , platelet count 218. Sodium 136, potassium 4.4, chloride 111, carbon dioxide 19, anion gap 6, BUN 42, creatinine 2.1, glucose 127. Lactic acid 1.9. Calcium 8.0. Bilirubin 0.5, AST 37, ALT 36, alkaline phosphatase 170. CRP 10.87. BNP 107. Total protein 5.6, albumin 2.5, globulin 3.6, amylase 83, lipase 63. STUDIES DONE WHILE IN THE EMERGENCY DEPARTMENT: Abdomen x-ray from 04/19/18 read as normal bowel gas pattern, large amount of stool throughout the colon. Electrocardiogram shows paced rhythm on triple ST segments, normal axis, left bundle branch block pattern consistent with previous exam. ASSESSMENT AND PLAN/IMPRESSION: Mr. Ashford is a 78-year-old male with a past medical history significant for cryptogenic ascites status post TIPS, recent NSTEMI with 4 drug-eluting stents placed, GI bleed, hyperlipidemia, chronic kidney disease, and MGUS who presents to the emergency department with 3 days of melena. The patient was recently restarted on Plavix after a NSTEMI at [place], which complicated his TIPS procedure and he is currently having melena. The patient is anemic, but has no identified source of upper GI bleed and the patient will be admitted for observation to the hospital for monitoring of blood counts and colonoscopy in the morning. 1. Gastrointestinal bleed. The patient has melena indicating possible upper GI source; however, there is no risk identified on bedside EEG by Dr. Reinoso of gastroenterology. The patient has a large amount of stool in his colon that could indicate slow gastric flow on colonic transit. The patient will have GoLYTELY tonight and then colonoscopy in the morning. The patient will have serial H and H's every 6 hours and we will transfuse under hemoglobin of 7. The patient is currently hemodynamically stable. The patient is not tachycardic. He has no lactic acidosis. No hypotension except with procedural sedation. The patient will be started on pantoprazole IV 40 units b.i.d. The patient does not need an octreotide drip. The patient has no identified varices. 2. Coronary artery disease. The patient's troponin is pending. The patient's EKG is nondiagnostic due to pacing. The patient is not having chest pain at this time. The patient will be continued on aspirin and Plavix and only will be stopped if absolutely necessary in the setting of life threatening GI bleed due to recent drug- eluting stent placement. 3. Cryptogenic ascites status post TIPS. The patient's TIPS shunt appears to be working well or it is not bleeding. This should be evaluated outpatient for continued functionality. The patient will be continued on his diuretics at this time as he is hemodynamically stable. If he decompensates, this likely will be stopped. The patient will follow up this outpatient. The patient has low albumin. The patient does not have cirrhosis. 4. Chronic kidney disease. The patient's creatinine is 2.1, which is slightly above his baseline level. We will avoid nephrotoxic medications and follow this and repeat this in the morning. 5. Monoclonal gammopathy of undetermined significance. The patient should followup outpatient with hematology/oncology. It is unclear if it has anything to do with the patient's current presentation. 6. FEN. The patient will have 1 L of fluid in the emergency department. The patient has significant ascites. The patient will be continued on his diuretics. The patient will have a heart healthy diet without caffeine. Will not receive anymore fluids at this time unless hemodynamic instability occurs. 7. Deep vein thrombosis prophylaxis. The patient will have SCDs in the setting of GI bleed. 8. Disposition. The patient will be admitted to observation. 9. Code status. The patient is a full code. The patient's surrogate decision maker will be his , Caroline, as above. TIME SPENT: Approximately 60 minutes were spent on this admission, 30 of which was spent [id number] with the patient obtaining history and physical and discussing treatment plan. The plan has been discussed with my attending, Dr. Edwards, and he is in agreement as well as with Dr. Reinoso, he is in agreement as well. KATIE MAI [id number]/[facility] #: [id number] GALO
[2018-04-20] MEDS: Metoprolol Succinate XL TAB* 25 MG PO SCH ×3 (03:28→20:09)
[2018-04-20 05:29] LABS: ABS Basophils 0.1 10^3/ul (0-0.2); ABS Eosinophils 0.1 10^3/ul (0-0.6); ABS Monocytes 0.4 10^3/ul (0-0.8); ABS Neutrophils 2.6 10^3/ul (1.5-7.7); ABS Nucleated RBC 0 10^3/ul; Eosinophil % 1.6 % (0-6); Hematocrit 26 % (42-52); Hemoglobin 8.7 g/dl (14.0-18.0); Lymphocyte % 38.2 % (25-47); Mean Corpuscular HGB Conc 34 g/dl (31-36); Mean Corpuscular Hemoglobin 31 pg (27-31); Mean Corpuscular Volume 91 fL (80-94); Mean Platelet Volume 8.3 um3 (7.4-10.4); Nucleated Red Blood Cells % 0.1; Platelet Count 261 10^3/ul (150-450); Red Blood Count 2.84 10^6/ul (4.00-5.40); Red Cell Distribution Width 18 % (10.5-15); White Blood Count 5.1 10^3/ul (3.5-10.8)
[2018-04-20 05:30] LABS: Hematocrit 25 % (42-52); Hemoglobin 8.6 g/dl (14.0-18.0)
[2018-04-20 05:32] LABS: INR 0.93 (0.77-1.02)
[2018-04-20 05:44] LABS: EGFR Non-African American 31.7 (>60)
[2018-04-20] MEDS: Pantoprazole IV* 40 MG IV SCH ×2 (05:50→17:58)
[2018-04-20] MEDS ORDERED: Magnesium Sulfate 2 GM IV* 2 GM/50 ML BAG IVPB ONE (06:54)
[2018-04-20] MEDS: Atorvastatin* 80 MG TAB PO SCH (08:42)
[2018-04-20] MEDS: Aspirin EC TAB* 81 MG TAB.EC PO SCH (08:43)
[2018-04-20] MEDS: Clopidogrel TAB* 75 MG PO SCH (08:43)
[2018-04-20] MEDS ORDERED: Furosemide TAB* 20 MG PO SCH (09:00)
[2018-04-20] MEDS ORDERED: Spironolactone TAB* 25 MG PO SCH (09:00)
[2018-04-20 12:39] LABS: Hematocrit 24 % (42-52)
[2018-04-20] MEDS ORDERED: Midazolam* 1 MG/ML 10 ML VIAL (10 MG) ONE (14:00)
[2018-04-20] MEDS ORDERED: fentaNYL* 50 MCG/ML 2 ML VIAL (100 MCG VIAL) ONE (14:00)
--- NOTE | 2018-04-20 15:44 | PRO ---
CC: Dr. Herman Looney; Dr. Ruiz * DATE OF PROCEDURE: 04/19/18 - ROOM #ICU-05 REFERRING PHYSICIAN: Dr. Herman Looney, [facility], his transplant specialty trimmer. PRIMARY TALENT REP: Dr. Ruiz. PROCEDURE: Esophagogastroduodenoscopy. INDICATION: Melena, recent history of TIPS, recent history of acute AK, status post Plavix therapy. MEDICATIONS GIVEN: Include Midazolam 3 mg IV, Fentanyl 25 mcg IV . BRIEF HISTORY: This is a very pleasant 78-year-old male with history of idiopathic pulmonary hypertension with recent TIPS placement at [facility], complicated by acute NSTEMI, status post coronary stenting with drug- eluting stents, who presents with melena. He did have an EGD about a week ago at [place] and they did find mild, grade 1, non-bleeding varices. He presents today with further gross melena, occult positive, and hemoglobin of 7.4. An emergent upper endoscopy was done after consultation with his primary specialty trimmer, Dr. Herman Looney, at [facility]. PROCEDURE IN DETAIL: After the EGD procedure including the risks, benefits, and alternatives not limited to perforation, surgery, and/or were explained to the patient, written consent was then obtained. IV medication was given and a bite- block was placed between the teeth. The Olympus gastroscope was then inserted into the patient's mouth, advanced down the esophagus, into the stomach, in the distal duodenum. In the esophagus at the GE junction, the Z -line was intact. 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 There was mild grade 1 esophageal varices, nonbleeding. No recent stigmata of bleeding. He did have an ectopic vein closer to the upper esophageal sphincter. This appeared more of a bleb variety without any evidence of recent stigmata of bleeding. The scope was then advanced through a patent lower esophageal sphincter into the stomach. On retroflexion, no gastric varices were seen. He did have a small hiatal hernia. The stomach was grossly normal in appearance. The scope was then advanced through a widely patent pylorus to the bulb, into the C-loop and then past the papilla. No fresh or old blood was seen. I pushed as far as I could into the distal duodenum and again no black or blood was noted. The scope was then withdrawn from the patient. He tolerated the procedure well. He returned to the recovery room in stable condition. IMPRESSION: 1. Complete upper endoscopy into the distal duodenum. 2. Mild grade 1 esophageal varices. No stigmata of bleeding. 3. Venous bleb in the proximal esophagus. No stigmata of bleeding, unlikely source. 4. No fresh or old blood identified upon push into the small bowel. RECOMMENDATIONS: At this time, the Sandostatin can be discontinued. I would monitor his H and H q.6 hours, keep 2 units of PRBCs on hold, keep his hemoglobin goal between 7 to 8 g. I will prep him for colonoscopy on 04/20/18. This will be done on Plavix therapy given his drug-eluting stent. [id number]/[facility] #: [id number] GALO
--- NOTE | 2018-04-20 17:33 | PN ---
Subjective Date of Service: 04/20/18 Interval History: Patient has been having frequent BMs with colon prep. Patient states Melena has resolved with recent BMs. Stool was increasingly clear over the morning. Patient denies dizziness, CP, SOB, N/V, abdominal pain, F/C, palpitations, or other pain. Patient states his abdomen is at his normal level of abdominal distention. Family History: Unchanged from Admission Social History: Unchanged from Admission Past Medical History: Unchanged from Admission Objective Active Medications: Acetaminophen (Tylenol Tab*) 650 mg PO Q6H PRN PRN Reason: FEVER/PAIN Aspirin (Aspirin Ec Tab*) 81 mg PO DAILY [facility] Last Admin: 04/20/18 08:43 Dose: 81 mg Atorvastatin Calcium (Lipitor*) 80 mg PO DAILY [facility] Last Admin: 04/20/18 08:42 Dose: 80 mg Clopidogrel Bisulfate (Plavix Tab*) 75 mg PO DAILY [facility] Last Admin: 04/20/18 08:43 Dose: 75 mg Furosemide (Lasix Tab*) 20 mg PO DAILY [facility] Last Admin: 04/20/18 08:42 Dose: 20 mg Ceftriaxone Sodium 2 gm/ (Sodium Chloride) 100 mls @ 200 mls/hr IVPB Q24H [facility] Metoprolol Succinate (Toprol Xl Tab*) 12.5 mg PO BID [facility] Last Admin: 04/20/18 08:43 Dose: 12.5 mg Ondansetron HCl (Zofran Inj*) 4 mg IV Q6H PRN PRN Reason: NAUSEA Pantoprazole Sodium (Protonix Iv*) 40 mg IV Q12H [facility] Last Admin: 04/20/18 05:50 Dose: 40 mg Spironolactone (Aldactone Tab*) 50 mg PO DAILY [facility] Last Admin: 04/20/18 08:43 Dose: 50 mg Vital Signs - 8 hr 04/20/18 04/20/18 04/20/18 12:00 17:02 17:04 Temperature 98.1 F 97.2 F 97.4 F Pulse Rate 75 75 76 Respiratory 16 16 16 Rate Blood Pressure 108/54 96/42 99/42 (mmHg) O2 Sat by Pulse 100 100 100 Oximetry Oxygen Devices in Use Now: Nasal Cannula Appearance: Patient is a 78yo male who appears stated age and is sitting in the bed in [facility]. Eyes: No Scleral Icterus, PERRLA Ears/Nose/Mouth/Throat: NL Teeth, Lips, Gums, Clear Oropharnyx, Mucous Membranes Moist Neck: NL Appearance and Movements; NL JVP, Trachea Midline Respiratory: Symmetrical Chest Expansion and Respiratory Effort, Clear to Auscultation Cardiovascular: NL Sounds; No Murmurs; No JVD, RRR Abdominal: NL Sounds; No Tenderness; No Distention, No Hepatosplenomegaly, - - Distended, stable. No Hepatosplenomegaly. Lymphatic: No Cervical Adenopathy Extremities: No Clubbing, Cyanosis, - - Stable 2+ LE edema. Skin: No Nodules or Sclerosis Neurological: Alert and Oriented x 3, NL Sensation, NL Muscle Strength and Tone , - - CN II-XII intact. Result Diagrams: 04/20/18 12:27 04/20/18 05:03 Microbiology and Other Data: Microbiology 04/19/18 09:30 Stool Occult Blood (SUJEY) - Final Stool Assess/Plan/Problems-Billing Assessment: Patient is a 78yo male with a PMH for crytogenic ascites s/p TIPS, CAD, S/P recent NSTEMI with stents, CKD, MGUS, who is admitted with Melena and has had a colonoscopy showing friable polyps and no melena. Patient is stable and is being monitored for continued bleeding. - Patient Problems (1) GI bleed Current Visit: No Status: Acute Code(s): K92.2 - GASTROINTESTINAL HEMORRHAGE , UNSPECIFIED SNOMED Code(s): 53034761 Comment: - GI consulted S/P Colonoscopy, friable polyp likely source. - EGD showed no issues - Monitor, may need transfer for high risk polypectomy. (2) Anemia Current Visit: No Status: Acute Code(s): D64.9 - ANEMIA, UNSPECIFIED SNOMED Code(s): 670798783 Comment: - Acute blood loss anemia from probable lower GI bleed. - Unable to stop Plavix/ASA due to recent stents - S/P 1u PRBC. - Q6H H/H, most recent hemoglobin 8.0 - Will possibly need transfer if no spontaneous resolution of bleeding. (3) Ascites Current Visit: No Status: Acute Code(s): R18.8 - OTHER ASCITES SNOMED Code (s): 261079413 Comment: - S/P TIPS - Recent Weight gain - Ascites stable - Continue Lasix and Spironolactone - Cryptogenic, low albumin. (4) CAD (coronary artery disease) Current Visit: No Status: Chronic Code(s): I25.10 - ATHSCL HEART DISEASE OF [place] CORONARY ARTERY W/O ANG PCTRS SNOMED Code(s): 12144061 Comment: - Patient with recent NSTEMI and Drug Eluting Stenting in early March - Denies chest pain - DAPT unable to be stopped Continue metoprolol (5) CKD (chronic kidney disease) Current Visit: No Status: Chronic Code(s): N18.9 - CHRONIC KIDNEY DISEASE, UNSPECIFIED SNOMED Code(s): 951110195 Comment: - at baseline - Continue to monitor and limit nephrotoxic agents (6) HLD (hyperlipidemia) Current Visit: No Status: Chronic Code(s): E78.5 - HYPERLIPIDEMIA, UNSPECIFIED SNOMED Code(s): 94403074 Comment: - Continue atorvastain (7) SALEEM (obstructive sleep apnea) Current Visit: No Status: Chronic Code(s): G47.33 - OBSTRUCTIVE SLEEP APNEA (ADULT) (PEDIATRIC) SNOMED Code(s): 18675003 Comment: - O2 continuous (8) DVT prophylaxis Current Visit: No Status: Acute Code(s): QYM0490 - SNOMED Code(s): 669223767 Comment: - SCDs (9) Full code status Current Visit: No Status: Acute Code(s): Z78.9 - OTHER SPECIFIED HEALTH STATUS SNOMED Code(s): 287714830 Status and Disposition: Inpatient.
[2018-04-20] MEDS: cefTRIAXone(*) 2 GM in NS 0.9% 50 ML* 100 ML IVPB SCH (17:58)
[2018-04-20 18:20] LABS: Hematocrit 22 % (42-52); Hemoglobin 7.5 g/dl (14.0-18.0)
--- NOTE | 2018-04-20 18:29 | PRO ---
CC: Franklyn Johnston MD PROCEDURE NOTE: DATE OF PROCEDURE: 04/20/18 REFERRING PHYSICIAN: Franklyn Johnston MD PROCEDURE: Colonoscopy with biopsy. INDICATIONS: 1. Melena 2. Prior colonoscopy [place] [address] Ruiz, at which point 6 sub- centimeter tubular adenomas were removed. MEDICATIONS GIVEN: 1. Midazolam 3.5 mg IV 2. Fentanyl 25 mcg IV. DESCRIPTION OF PROCEDURE: Full disclosure of risks was reviewed with the patient as detailed on the consent form. The patient was placed in the left lateral decubitus position and monitored with continuous pulse oximetry, capnography, interval blood pressure monitoring, and direct observation. After anorectal exam was performed, the colonoscope was inserted into the rectum and advanced slowly and carefully under direct vision to the cecum. The intubation was more difficult than average in part due to loop formation and presence of ascites leading to less effective attempts at providing abdominal pressure. The cecum was fully inflated allowing a complete view including the medial wall between the IC valve and appendiceal orifice. Quality of the prep was good. A careful inspection was made as the colonoscope was withdrawn. A retroflexed view of the rectum was performed. Findings and interventions are described below. The patient tolerated the procedure well and was recovered in the GI recovery area. FINDINGS: - Anorectal exam was unremarkable. - There was small amount of dark fluid in the distal colon that was suctioned easily. Otherwise, there was no melena or bright red blood encountered during the exam. - The scope was advanced to the cecum and a very patulous ileocecal valve was appreciated. The terminal ileum was unable to be intubated despite multiple attempts in part due to loop formation. - The exam was notable for multiple large pedunculated polyps. There was a 2- to 3-cm pedunculated polyp located at around 30 cm and a second similar sized pedunculated polyp at 45 cm. There were also several subcentimeter polyps noted in left and transverse colon. In the right colon, there were at least 3 pedunculated polyps ranging from 1.5 to 3.5 cm. One of these polyps in particular was quite erythematous and friable with multiple white caps. A small biopsy was obtained from this polyp with significant oozing resulting in the decision to not obtain further biopsies. - No obvious AVMs were encountered during this exam IMPRESSION: 1. No melena or red blood noted on the exam suggesting that bleeding has at least temporarily stopped. 2. Several small polyps in left and transverse colon as well as multiple large pedunculated polyps ranging in size from 1.5 to 3 cm. There is one right colon polyp in particular that appeared different (erythematous with white caps/ exudate) from the others. This appearance raises concern for the possibility of underlying malignancy vs prolapse changes. 3. No AVMs or alternate explanation for melena appreciated. 4. I remain quite suspicious of the large right colon polyp(s) as source of bleeding; however, I can not definitively rule out a small bowel source of the melena as there was no active bleeding on today's exam. RECOMMENDATIONS: 1. Await pathology. 2. Obtain CT abdomen/pelvis bleeding protocol or enterography to evaluate for possible small bowel bleeding source. 3. Recommend SBP prophylaxis given presence of GI bleeding and ascites. 4. This is a complicated case as it is quite possible that the right colon polyp (s) may be source of oozing and bleeding. Mr. Ashford is on dual antiplatelet therapy in the setting of a recently placed cardiac stent. It would be quite high risk to try to remove these polyps on dual-antiplatelet therapy, but it unfortunately does not seem that this would be an appropriate time to hold his dual antiplatelet therapy. I discussed the case with the patient's outpatient soil field technician, Dr. Ruiz, as well as his outpatient chief of anesthesiology at [place] in [place], Dr. Herman Looney. Dr. Looney indicated that he might consider doing a repeat colonoscopy at [place] with attempts at removing the more concerning polyps by prophylactically clipping the base of the polyp and then removing them with snare cautery. It is possible that he would consider doing this on dual-antiplatelet therapy vs discussing with cardiology to see if they might feel comfortable with a temporary pause in Plavix (30 days after stent placement). I will defer that decision making to Dr. Looney. At this point , I agree with close monitoring of the patient's blood counts over the next 24- 48 hours to determine if he has ongoing blood loss anemia. If he is able to maintain stable blood counts over the weekend, then it would be reasonable to set up close followup at [place] with Dr Looney within the next 1 to 2 weeks to determine next steps. If the patient is unable to maintain his blood counts and has evidence of ongoing bleeding, then I think a transfer to [place] is advisable. I discussed this plan with both the patient's primary provider, KATIE Pike, as well as the patient and his . [id number]/[facility] #: [id number] GALO
[2018-04-21 01:40] LABS: Hematocrit 20 % (42-52); Hemoglobin 6.7 g/dl (14.0-18.0)
[2018-04-21] MEDS: Pantoprazole IV* 40 MG IV SCH ×2 (05:35→17:09)
[2018-04-21 08:37] LABS: ABS Basophils 0 10^3/ul (0-0.2); ABS Eosinophils 0.1 10^3/ul (0-0.6); ABS Lymphocytes 0.6 10^3/ul (1.0-4.8); ABS Monocytes 0.3 10^3/ul (0-0.8); ABS Neutrophils 2.8 10^3/ul (1.5-7.7); ABS Nucleated RBC 0 10^3/ul; Eosinophil % 1.4 % (0-6); Hematocrit 22 % (42-52); Hemoglobin 7.7 g/dl (14.0-18.0); Lymphocyte % 16.3 % (25-47); Mean Corpuscular HGB Conc 34 g/dl (31-36); Mean Corpuscular Hemoglobin 31 pg (27-31); Mean Corpuscular Volume 90 fL (80-94); Mean Platelet Volume 8.6 um3 (7.4-10.4); Nucleated Red Blood Cells % 0.1; Platelet Count 166 10^3/ul (150-450); Red Blood Count 2.49 10^6/ul (4.00-5.40); Red Cell Distribution Width 17 % (10.5-15); White Blood Count 3.8 10^3/ul (3.5-10.8)
[2018-04-21] MEDS: Metoprolol Succinate XL TAB* 25 MG PO SCH ×2 (08:44→21:16)
[2018-04-21] MEDS: Aspirin EC TAB* 81 MG TAB.EC PO SCH (08:44)
[2018-04-21] MEDS: Atorvastatin* 80 MG TAB PO SCH (08:46)
[2018-04-21 08:48] LABS: EGFR Non-African American 32.6 (>60)
[2018-04-21] MEDS: Clopidogrel TAB* 75 MG PO SCH (08:50)
[2018-04-21 12:27] LABS: Hematocrit 27 % (42-52); Hemoglobin 9.1 g/dl (14.0-18.0)
[2018-04-21] MEDS: cefTRIAXone(*) 2 GM in NS 0.9% 50 ML* 100 ML IVPB SCH (15:37)
--- NOTE | 2018-04-21 16:48 | PN ---
Subjective Date of Service: 04/21/18 Interval History: Patient feeling better today. Slight amount of BRBPR in frequent loose stools. Patient denies dizziness on standing, palpitations, CP, SOB, abdominal pain, dysuria. Patient does not feel as if his ascites has gotten worse. Patient denies F/C. Patient is amenable to transfer to [facility] when a bed is available. Family History: Unchanged from Admission Social History: Unchanged from Admission Past Medical History: Unchanged from Admission Objective Active Medications: Acetaminophen (Tylenol Tab*) 650 mg PO Q6H PRN PRN Reason: FEVER/PAIN Aspirin (Aspirin Ec Tab*) 81 mg PO DAILY [facility] Last Admin: 04/21/18 08:44 Dose: 81 mg Atorvastatin Calcium (Lipitor*) 80 mg PO DAILY [facility] Last Admin: 04/21/18 08:46 Dose: 80 mg Clopidogrel Bisulfate (Plavix Tab*) 75 mg PO DAILY [facility] Last Admin: 04/21/18 08:50 Dose: 75 mg Ceftriaxone Sodium 2 gm/ (Sodium Chloride) 100 mls @ 200 mls/hr IVPB Q24H [facility] Last Admin: 04/21/18 15:37 Dose: 200 mls/hr Metoprolol Succinate (Toprol Xl Tab*) 12.5 mg PO BID [facility] Last Admin: 04/21/18 08:44 Dose: 12.5 mg Ondansetron HCl (Zofran Inj*) 4 mg IV Q6H PRN PRN Reason: NAUSEA Pantoprazole Sodium (Protonix Iv*) 40 mg IV Q12H [facility] Last Admin: 04/21/18 05:35 Dose: 40 mg Vital Signs - 8 hr 04/21/18 04/21/18 11:12 15:47 Temperature 97.7 F 98.5 F Pulse Rate 74 74 Respiratory 18 16 Rate Blood Pressure 86/36 98/59 (mmHg) O2 Sat by Pulse 99 100 Oximetry Oxygen Devices in Use Now: None Appearance: Patient is a 78yo male who appears stated age and is sitting in the bed in [facility]. Eyes: No Scleral Icterus, PERRLA Ears/Nose/Mouth/Throat: NL Teeth, Lips, Gums, Clear Oropharnyx, Mucous Membranes Moist Neck: NL Appearance and Movements; NL JVP, Trachea Midline Respiratory: Symmetrical Chest Expansion and Respiratory Effort, Clear to Auscultation Cardiovascular: NL Sounds; No Murmurs; No JVD, RRR, - - 1+ edema in LLE, 2+ in RLE Abdominal: No Hepatosplenomegaly, - - Distended, Normoactive bowel sounds. Unchanged from previous exam. Non-tender, dull to percussion. Lymphatic: No Cervical Adenopathy Extremities: No Clubbing, Cyanosis Skin: No Rash or Ulcers, No Nodules or Sclerosis Neurological: Alert and Oriented x 3, NL Sensation, - - CN II-XII intact. Result Diagrams: 04/21/18 12:01 04/21/18 08:22 Microbiology and Other Data: Microbiology 04/19/18 09:30 Stool Occult Blood (SUJEY) - Final Stool Assess/Plan/Problems-Billing Assessment: Patient is a 78yo male with a PMH for crytogenic ascites s/p TIPS, CAD, S/P recent NSTEMI with stents, CKD, MGUS, who is admitted with Melena and has had a colonoscopy showing friable polyps and no melena. Patient is stable and is being monitored for continued bleeding. - Patient Problems (1) GI bleed Current Visit: No Status: Acute Code(s): K92.2 - GASTROINTESTINAL HEMORRHAGE , UNSPECIFIED SNOMED Code(s): 50492114 Comment: - GI consulted S/P Colonoscopy, friable polyp likely source. - EGD showed no issues - Monitor, Transfer when available for consideration of high-risk polypectomy. - Transfuse to hemoglobin between 7-8. - 2u PRBC to date. (2) Anemia Current Visit: No Status: Acute Code(s): D64.9 - ANEMIA, UNSPECIFIED SNOMED Code(s): 444119356 Comment: - Acute blood loss anemia from probable lower GI bleed. - Unable to stop Plavix/ASA due to recent stents - S/P 2u PRBC. - Q6H H/H, most recent hemoglobin 9.1. Likely factitiously high - Borederline hypotensive. Begin fluids. - Transfer when able. (3) Ascites Current Visit: No Status: Acute Code(s): R18.8 - OTHER ASCITES SNOMED Code (s): 610493144 Comment: - S/P TIPS - Recent Weight gain - Ascites stable - Hold spironolactone and lasix. - Cryptogenic, low albumin. (4) CAD (coronary artery disease) Current Visit: No Status: Chronic Code(s): I25.10 - ATHSCL HEART DISEASE OF [place] CORONARY ARTERY W/O ANG PCTRS SNOMED Code(s): 31382190 Comment: - Patient with recent NSTEMI and Drug Eluting Stenting in early March - Denies chest pain - DAPT unable to be stopped - Continue metoprolol (5) CKD (chronic kidney disease) Current Visit: No Status: Chronic Code(s): N18.9 - CHRONIC KIDNEY DISEASE, UNSPECIFIED SNOMED Code(s): 010787527 Comment: - at baseline - Continue to monitor and limit nephrotoxic agents (6) HLD (hyperlipidemia) Current Visit: No Status: Chronic Code(s): E78.5 - HYPERLIPIDEMIA, UNSPECIFIED SNOMED Code(s): 42266937 Comment: - Continue atorvastain (7) SALEEM (obstructive sleep apnea) Current Visit: No Status: Chronic Code(s): G47.33 - OBSTRUCTIVE SLEEP APNEA (ADULT) (PEDIATRIC) SNOMED Code(s): 72446134 Comment: - O2 continuous at night (8) DVT prophylaxis Current Visit: No Status: Acute Code(s): BLN7827 - SNOMED Code(s): 744410954 Comment: - SCDs (9) Full code status Current Visit: No Status: Acute Code(s): Z78.9 - OTHER SPECIFIED HEALTH STATUS SNOMED Code(s): 108467129 Status and Disposition: Inpatient.
[2018-04-21] MEDS: NS 0.9% 1000 ML* 1,000 ML IV SCH ×2 (17:09→23:44)
[2018-04-21 17:34] LABS: Hematocrit 25 % (42-52); Hemoglobin 8.5 g/dl (14.0-18.0)
[2018-04-21] MEDS ORDERED: NS 0.9% 500 ML* 500 ML IV ONE (19:14)
[2018-04-22 00:19] LABS: Hematocrit 20 % (42-52)
--- NOTE | 2018-04-22 04:45 | TRS ---
CC: Dr. Franklyn Johnston * TRANSFER SUMMARY: DATE OF ADMISSION: 04/19/18 DATE OF TRANSFER: 04/22/18 PRIMARY CARE PROVIDER: Dr. Franklyn Johnston. MY ATTENDING WHILE IN THE HOSPITAL: Dr. Maryjo Arriaga.* (DICTATED BY KATIE MAI) PRIMARY DISCHARGE DIAGNOSES: 1. Gastrointestinal bleed. 2. Cryptogenic ascites, status post TIPS procedure. 3. Recent history of non-ST elevation myocardial infarction with 4 drug- eluting stents placed. SECONDARY DISCHARGE DIAGNOSES: 1. Monoclonal gammopathy of undetermined significance. 2. History of gastrointestinal bleed. 3. Chronic kidney disease. 4. Obstructive sleep apnea. 5. Sick sinus syndrome, status post pacemaker. STUDIES DONE WHILE IN THE HOSPITAL: Abdomen x-ray from 04/19/18 read as nonspecific bowel gas pattern, large amount of stool throughout the colon. CT enteroscopy from 04/22/2018: Shows significant ascites, no masses in the small intestines or GI bleeding. Venous Doppler study from 04/19/18 read as normal right lower extremity duplex venous Doppler ultrasound, no obvious DVT seen in right leg. MEDICATIONS AT THE TIME OF TRANSFER: 1. Pantoprazole 40 mg IV b.i.d. 2. Zofran 4 mg IV q.6 hours as needed. 3. Metoprolol succinate 12.5 mg p.o. b.i.d. 4. Clopidogrel 75 mg p.o. daily as scheduled. 5. Ceftriaxone 2 g IV q.24 hours. 6. Atorvastatin 80 mg p.o. daily as scheduled. 7. Aspirin 81 mg p.o. daily. 8. Tylenol 650 mg p.o. q.6 hours as needed. Home medications held on admission: 1. Furosemide 20 mg p.o. daily. 2. Spironolactone 50 mg p.o. daily. HOSPITAL COURSE: This is a brief summary of the patient's presentation. For more details, please see the history and physical from KATIE Mai, on . In brief, the patient is a 78-year-old male with past medical history significant for the above, who presented to the emergency department with a recent complex medical history, which started with a TIPS procedure on 03/28/18 , whose postoperative course was complicated by an NSTEMI with a peak troponin of 33 and 4 drug-eluting stents being placed. The patient was started on dual antiplatelet therapy at that time. The patient was stable from then until 3 days prior to his admission except for having slight hypotension with his Imdur being stopped by his food crops farm hand. The patient developed melena 3 days prior to his admission and came into the emergency department on 04/19/18. The patient was seen in consultation by Dr. Shady Reinoso of Gastroenterology, who did a bedside EGD, which showed small esophageal varices without bleeding and no other signs of upper GI bleeding. The patient was admitted to the hospital and given 1 unit of blood with a goal hemoglobin between 7 and 8. The patient underwent a bowel prep and had a colonoscopy with Dr. Cristina Siu on , which showed a large friable polyp in the right colon as well as numerous other polyps scattered throughout the colon. This was believed to be the focus of the patient's bleeding; however, no treatment was attempted due to dual antiplatelet therapy, which was unable to be stopped. The patient's blood pressure has been borderline hypotensive throughout his hospitalization. The patient was transfused another unit overnight on 04/20/18. On 04/21/18, the patient is asymptomatic from his borderline low blood pressure and his anemia. The patient is not tachycardic. The patient is saturating well on room air. The patient has no other signs of infection. Due to the apparent continued bleeding and no definitive treatment available at this facility, the patient will be transferred to [facility] for consideration of high risk polypectomy in conjunction with cardiology service to manage his cardiac risk with the possible need to stop dual antiplatelet therapy. The patient was started on ceftriaxone 2 g daily for SBP prophylaxis in the setting of GI bleed with ascites. Patient on 04/22 had symptoms consistent with hypotension and blood pressures in the 80s/30s. Patient required another unit of blood to be transfused overnight. Patient has been having persistent Melena. Patient was transferred to the ICU for closer monitoring and his blood pressure spontaneously increased without intervention and his symptoms of hypotension resolved. TRANSFER PLAN: The patient will be transferred when bed is available to [facility] for consideration of a high risk polypectomy. Biopsy was obtained at this facility and the results of this will be made available to the receiving facility when available. The accepting physician is Dr. Oakes, [employer], at [facility]. The patient's outpatient design maintenance engineer is Dr. Nieto should be consulted when the patient has arrived at [place]. Dr. Shady Reinoso of Gastroenterology recommended a hemoglobin target between 7 and 8 due to portal hypertension and presence of varices. The patient had a negative lactate dehydrogenase and has a haptoglobin pending to assess for hemolysis from the patient's shunt, which does not appear to be happening. The patient's TIPS shunt should be evaluated when available. The patient's diuretics have been stopped due to hypotension and paracentesis should be considered for management of his ascites if it begins to become complicated. The patient should engage in activity as tolerated and is currently on a soft diet. The patient should be continued on pantoprazole due to preexisting anemia, risk of bleeding, and known varices. The patient's metoprolol has not been stopped due to concern for rebound angina. TIME SPENT: Approximately 60 minutes was spent on this transfer, 30 of which was spent [id number] with the patient obtaining history and physical and discussing treatment plan. KATIE MAI [id number]/[facility] #: [id number] MTDMadeleine
[2018-04-22] MEDS: Pantoprazole IV* 40 MG IV SCH ×2 (05:18→17:52)
[2018-04-22 06:56] LABS: ABS Basophils 0 10^3/ul (0-0.2); ABS Eosinophils 0.1 10^3/ul (0-0.6); ABS Lymphocytes 0.7 10^3/ul (1.0-4.8); ABS Monocytes 0.3 10^3/ul (0-0.8); ABS Neutrophils 1.5 10^3/ul (1.5-7.7); ABS Nucleated RBC 0 10^3/ul; Eosinophil % 2.6 % (0-6); Hematocrit 24 % (42-52); Hemoglobin 8.5 g/dl (14.0-18.0); Lymphocyte % 27.3 % (25-47); Mean Corpuscular HGB Conc 35 g/dl (31-36); Mean Corpuscular Hemoglobin 31 pg (27-31); Mean Corpuscular Volume 90 fL (80-94); Mean Platelet Volume 8.5 um3 (7.4-10.4); Nucleated Red Blood Cells % 0.1; Platelet Count 139 10^3/ul (150-450); Red Blood Count 2.69 10^6/ul (4.00-5.40); Red Cell Distribution Width 17 % (10.5-15); White Blood Count 2.7 10^3/ul (3.5-10.8)
[2018-04-22] MEDS: Metoprolol Succinate XL TAB* 25 MG PO SCH (08:45)
[2018-04-22] MEDS: Clopidogrel TAB* 75 MG PO SCH (08:46)
[2018-04-22] MEDS: Aspirin EC TAB* 81 MG TAB.EC PO SCH (08:46)
[2018-04-22] MEDS: Atorvastatin* 80 MG TAB PO SCH (08:46)
[2018-04-22] MEDS ORDERED: Magnesium Sulfate IV* 2 GM in NS 0.9% 100 ML* 100 ML IVPB ONE (11:01)
--- NOTE | 2018-04-22 11:45 | RAD ---
CLINICAL HISTORY: GI bleed COMPARISON: Most recent comparison CT examinations dated July 19, 2016 TECHNIQUE: Noncontrast CT examination of the abdomen and pelvis from the lung bases through the initial tuberosities. FINDINGS: VISUALIZED LUNG BASES: The visualized lung bases exhibit centrilobular emphysematous changes. There is mild bronchiectatic dilatation of the medium and small airways. There are small bibasilar pleural effusions. ABDOMEN AND PELVIS: Evaluation of the solid organs and vasculature is limited without intravenous contrast. The patient has undergone a TIPS procedure stenting the right hepatic vein to the right portal vein. The surface of the liver is nodular, advanced since the previous CT examination. The homogenously attenuating spleen measures 14.6 cm in greatest axial dimension. The pancreas and adrenal glands are grossly normal in appearance. The gallbladder is surgically absent. There are multiple fluid density cysts bilaterally. The lower pole of the left kidney there is a hyperattenuating cystic appearing structure measuring 12 mm in greatest dimension that has not changed significantly since the previous CT examination. Kidneys are normal in appearance without focal mass, calcification or signs of hydronephrosis. Evaluation of the gastrointestinal tract is limited without oral contrast. The small and large bowel are not distended.Consistent with the patient's surgical history, the appendix is not seen and there is surgical material adjacent to the cecum. There is no hyperattenuating material in the lumen of the bowel to suggest the presence of intraluminal blood. There are scattered distal colonic diverticula, none of which exhibit focal inflammatory change. There is no gross retroperitoneal or mesenteric lymphadenopathy. There is large volume peritoneal ascites. Peritoneal fluid extends into the bilateral inguinal ligaments presumably filling the scrotum. The pelvic viscera is normal in appearance. The coarsely calcified abdominal aorta and iliac arteries are normal in course and diameter. Atherosclerotic calcification extends into the bilateral common iliac arteries. Degenerative changes include multilevel loss of intervertebral disc height involving the lower thoracic and lumbar spine.There are no sinister bone lesions. IMPRESSION: 1. Large volume peritoneal ascites extending into the bilateral inguinal canals. 2. There is no acute abnormality of the gastrointestinal tract within the limitations of a noncontrast CT examination. Please note, a noncontrast CT examination is poorly sensitive for GI bleed. 3. The patient has undergone a right hepatic vein to right portal vein TIPS procedure since the July 19, 2016 CT examination. 4. Since the July 19, 2016 CT examination the liver now exhibits surface nodularity and hyperattenuation consistent with advancing cirrhosis.
[2018-04-22] MEDS ORDERED: NS 0.9% 100 ML* 100 ML ONE (12:15)
[2018-04-22 12:47] LABS: Hematocrit 27 % (42-52); Hemoglobin 9.1 g/dl (14.0-18.0)
[2018-04-22] MEDS: cefTRIAXone(*) 2 GM in NS 0.9% 50 ML* 100 ML IVPB SCH (17:27)
[2018-04-22 17:34] LABS: ABS Basophils 0 10^3/ul (0-0.2); ABS Eosinophils 0 10^3/ul (0-0.6); ABS Lymphocytes 0.5 10^3/ul (1.0-4.8); ABS Monocytes 0.4 10^3/ul (0-0.8); ABS Neutrophils 2.2 10^3/ul (1.5-7.7); ABS Nucleated RBC 0 10^3/ul; Eosinophil % 1.2 % (0-6); Hematocrit 26 % (42-52); Hemoglobin 8.7 g/dl (14.0-18.0); Lymphocyte % 16.6 % (25-47); Mean Corpuscular HGB Conc 34 g/dl (31-36); Mean Corpuscular Hemoglobin 31 pg (27-31); Mean Corpuscular Volume 92 fL (80-94); Mean Platelet Volume 8.8 um3 (7.4-10.4); Nucleated Red Blood Cells % 0; Platelet Count 154 10^3/ul (150-450); Red Blood Count 2.83 10^6/ul (4.00-5.40); Red Cell Distribution Width 17 % (10.5-15); White Blood Count 3.2 10^3/ul (3.5-10.8)
[2018-04-22 18:04] VITALS: BP 124/67
[2018-04-23] MEDS ORDERED: Metoprolol Succinate XL TAB* 25 MG PO SCH (09:00)
== END 2018-04-22 19:00 | disposition short-term general hospital (02) | DRG 377 ==
LOC: ED 09:52 → MED 17:07 → OBSVTOIN 04-20 16:33 → ICU 04-22 12:05
PROVIDERS: ADMIT Internal Medicine; ATTEND Internal Medicine
PROC: 30233N1 Transfusion of Nonautologous Red Blood Cells into Peripheral Vein, Percutaneous Approach (ICD-10-PCS; principal; 2018-04-19)
PROC: 0DJ08ZZ Inspection of Upper Intestinal Tract, Via Natural or Artificial Opening Endoscopic (ICD-10-PCS; 2018-04-19)
PROC: 0DBF8ZX Excision of Right Large Intestine, Via Natural or Artificial Opening Endoscopic, Diagnostic (ICD-10-PCS; 2018-04-20)
DX: K92.1 Melena (principal); I21.4 Non-ST elevation (NSTEMI) myocardial infarction; D62 Acute posthemorrhagic anemia; R18.8 Other ascites; K76.6 Portal hypertension; K63.5 Polyp of colon; I95.1 Orthostatic hypotension; D47.2 Monoclonal gammopathy; G47.33 Obstructive sleep apnea (adult) (pediatric); I49.5 Sick sinus syndrome; I25.10 Atherosclerotic heart disease of native coronary artery without angina pectoris; I85.00 Esophageal varices without bleeding; I13.10 Hypertensive heart and chronic kidney disease without heart failure, with stage 1 through stage 4 chronic kidney disease, or unspecified chronic kidney disease; N18.9 Chronic kidney disease, unspecified; E78.5 Hyperlipidemia, unspecified; K46.9 Unspecified abdominal hernia without obstruction or gangrene; I44.7 Left bundle-branch block, unspecified; Z95.0 Presence of cardiac pacemaker; Z95.5 Presence of coronary angioplasty implant and graft; Z79.02 Long term (current) use of antithrombotics/antiplatelets; Z79.82 Long term (current) use of aspirin; Z79.899 Other long term (current) drug therapy; Z91.048 Other nonmedicinal substance allergy status; Z80.52 Family history of malignant neoplasm of bladder; Z80.0 Family history of malignant neoplasm of digestive organs; Z83.49 Family history of other endocrine, nutritional and metabolic diseases; Z87.891 Personal history of nicotine dependence
CPT/HCPCS: 36415; 74019; 74176; 80048; 80053; 82150; 82270; 82550; 83010; 83605; 83615; 83690; 83735; 83880; 84484; 85014; 85018; 85025; 85610; 85730; 86140; 86850; 86900; 86901; 86922; 88305; 93005; 96365; 99156; 99157; 99285; A9270-GY; G0378; J0696; J2250; J3010; J3475; P9040

== ENCOUNTER 2018-05-02 13:34 | Inpatient (IN) | payer MEDICARE ==
--- NOTE | 2018-05-02 14:02 | ED ---
GI/ HPI - HPI Summary HPI Summary: The pt is a 78 y/o male accompanied by the presenting to [facility] c/o melena since 1 week ago. He was seen at [place] 6 days ago because of colon polyps. He did not undergo any polyps removal due to cardiac concerns. The procedure was deferred for 6 months. Before that, he was admitted at [facility] for 5 days. The pt notes black tarry stool, weakness, insomnia, and pedal edema but denies SOB, CP, and dyspnea. He took Dulcolax for 2 days and received blood transfusions. - History of Current Complaint Chief Complaint: EDGIBleed Time Seen by Provider: 05/02/18 13:54 Stated Complaint: BLOOD IN STOOL Hx Obtained From: Patient, Family/Carton Stapler - Onset/Duration: Started Weeks Ago - 1 week, Still Present Timing: Intermittent Pain Intensity: 0 Associated Signs and Symptoms: Positive: Weakness, Blood w/Stool. Negative: Chest Pain - Additional Pertinent History Primary Care Physician: NITESH - Allergy/Home Medications Allergies/Adverse Reactions: Allergies Allergy/AdvReac Type Severity Reaction Status Date / Time Adhesive Tape Allergy Unknown Verified 04/19/18 10:01 Reaction Details horse dander Allergy Swelling Verified 04/19/18 10:01 Horse/Equine Containing Allergy Hives Verified 04/19/18 10:01 Products latex Allergy Unknown Verified 04/19/18 10:01 Reaction Details midodrine Allergy Unknown Verified 04/19/18 10:01 Reaction Details HORSE SERUM Allergy Severe Swelling, Uncoded 04/16/18 17:38 hives PMH/Surg Hx/FS Hx/Imm Hx Previously Healthy: No Endocrine/Hematology History: Reports: Hx Anemia, Hx Unexplained Bleeding Cardiovascular History: Reports: Hx Angina, Hx Coronary Artery Disease, Hx Hypercholesterolemia, Hx Hypertension, Hx Myocardial Infarction, Hx Pacemaker/ ICD - pacemaker Respiratory History: Reports: Hx Sleep Apnea - current CPAP user GI History: Reports: Hx Cirrhosis, Hx Gastroesophageal Reflux Disease, Hx Irritable Bowel History: Reports: Other Problems/Disorders - weak bladder s/p bladder cancer Musculoskeletal History: Denies: Hx Rheumatoid Arthritis Sensory History: Reports: Hx Contacts or Glasses Denies: Hx Deafness, Hx Hearing Aid, Other Sensory Impairments Opthamlomology History: Reports: Hx Contacts or Glasses Denies: Other Sensory Impairments Neurological History: Denies: Hx Headaches, Hx Seizures, Hx Transient Ischemic Attacks (TIA) Psychiatric History: Denies: Hx Autism, Hx Schizophrenia - Cancer History Cancer Type, Location and Year: bladder cancer Hx Chemotherapy: No - Surgical History Surgery Procedure, Year, and Place: cataract surgery with lens implants bilat eyes. hammer toe repair bilat feet. appendectomy. cholecystectomy Hx Anesthesia Reactions: No Infectious Disease History: No Infectious Disease History: Denies: Traveled Outside the [place] in Last 30 Days - Family History Known Family History: Positive: Cardiac Disease Negative: Hypertension, Diabetes - Social History Occupation: Employed Full-time Lives: With Family Alcohol Use: None Alcohol Amount: none since August when issues started Substance Use Type: Reports: None Hx Tobacco Use: No Smoking Status (MU): Former Smoker Type: Cigarettes Have You Smoked in the Last Year: No Review of Systems Positive: Other - Positive: Insomnia Cardiovascular: Negative - Dyspnea Negative: Chest Pain Negative: Shortness Of Breath Positive: Other - Positive: Melena Positive: Edema - Bilateral LE All Other Systems Reviewed And Are Negative: Yes Physical Exam - Summary Physical Exam Summary: Appearance: Well-appearing, Well-nourished, lying in bed comfortable Skin: Warm, dry, no obvious rash Eyes: sclera anicteric, Conjunctival pallor ENT: mucous membranes moist Neck: deferred Respiratory: No signs of respiratory distress Cardiovascular: Appears well perfused, pulses are nml Abdomen: Rectal exam deferred given Mhx Musculoskeletal: Moving all 4 extremities without obvious discomfort Neurological: Awake and alert, mentation is normal, speech is fluent and appropriate Psychiatric: affect is normal, does not appear anxious or depressed Triage Information Reviewed: Yes Vital Signs On Initial Exam: Initial Vitals Temp Pulse Resp BP Pulse Ox 98.6 F 77 16 95/44 99 05/02/18 13:38 05/02/18 13:38 05/02/18 13:38 05/02/18 13:38 05/02/18 13:38 Vital Signs Reviewed: Yes Diagnostics - Vital Signs Vital Signs Temp Pulse Resp BP Pulse Ox 05/02/18 13:38 98.6 F 77 16 95/44 99 - Laboratory Result Diagrams: 05/03/18 12:46 05/03/18 08:33 Lab Statement: Any lab studies that have been ordered have been reviewed, and results considered in the medical decision making process. - EKG 14:18 Cardiac Rate: Other Rate - 72 bpm; Ventricular-paced complexes Re-Evaluation - Re-Evaluation First Eval Re-Evaluation Time: 19:04 Change: Improved GIGU Course/Dx - Course Course Of Treatment: A 78 year-old M presents to the ED with a CC of melena since 1 week ago. He was seen at [place] 6 days ago because of colon polyps. There, they did not conduct any polyps removal due to cardiac concerns. The procedure was deferred for 6 months. Before that, he was admitted at [facility] for 5 days. He notes black tarry stool, insomnia, and pedal edema but denies SOB, CP , and dyspnea. The took Dulcolax for 2 days and received blood transfusions. A physical exam revealed conjunctival pallor. A rectal exam was deferred given PMHx. An EKG reveals normal rate with ventricular-paced complexes. In the ED course, pt was given a blood transfusion which improved the symptoms. I discussed the care of the patient with Dr. Abdiaziz MD (soda fountain operator) who saw the pt in the ED. Dr. Freed recommends admittig the patient and continuing the blood transfussion. I also discussed with Dr Janneth DO who agreed to admit the pt. The pt will be admitted with a final Dx of lower GI bleed. The pt is agreeable with this plan. Allergies noted. - Diagnoses Provider Diagnoses: Anemia, Cryptogenic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 liver, CAD (coronary artery disease), GI bleed - Physician Notifications Discussed Care Of Patient With: Cristina Freed - Gastroentologist Time Discussed With Above Provider: 14:15 Instructed by Provider To: Other - Dr. Freed will talk with the soda fountain operator at [facility] in [place] and call back. 1817 - Dr. Freed saw the pt in the ED 18:54- I discussed with Dr. Janneth DO ( hospitalist) who agreed to admit the pt. Discharge - Sign-Out/Discharge Documenting (check all that apply): Patient Departure - Admit - Discharge Plan Condition: Improved Disposition: ADMITTED TO [facility] - Billing Disposition and Condition Condition: IMPROVED Disposition: Admitted to [facility] - Attestation Statements Document Initiated by Scribe: Yes Documenting Scribe: Tyesha Vidales Provider For Whom Scribe is Documenting (Include Credential): Dr. Tyshawn Tuttle MD Scribe Attestation: I, Tyesha Vidales , scribed for Dr. Tyshawn Tuttle MD on 05/03/18 at 1451. Scribe Documentation Reviewed: Yes Provider Attestation: The documentation as recorded by the scribe, Tyesha Vidales accurately reflects the service I personally performed and the decisions made by me, Dr. Tyshawn Tuttle MD
[2018-05-02 14:20] LABS: ABS Basophils 0 10^3/ul (0-0.2); ABS Eosinophils 0.1 10^3/ul (0-0.6); ABS Lymphocytes 0.8 10^3/ul (1.0-4.8); ABS Monocytes 0.4 10^3/ul (0-0.8); ABS Neutrophils 2.6 10^3/ul (1.5-7.7); ABS Nucleated RBC 0 10^3/ul; Eosinophil % 1.5 % (0-6); Hematocrit 21 % (42-52); Lymphocyte % 20.6 % (25-47); Mean Corpuscular HGB Conc 33 g/dl (31-36); Mean Corpuscular Hemoglobin 31 pg (27-31); Mean Corpuscular Volume 92 fL (80-94); Nucleated Red Blood Cells % 0.1; Platelet Count 185 10^3/ul (150-450); Red Blood Count 2.28 10^6/ul (4.00-5.40); Red Cell Distribution Width 18 % (10.5-15); White Blood Count 3.9 10^3/ul (3.5-10.8)
[2018-05-02 14:28] LABS: INR 0.98 (0.77-1.02)
[2018-05-02 14:38] LABS: EGFR Non-African American 27.9 (>60)
[2018-05-02] MEDS ORDERED: Acetaminophen TAB* 325 MG PO PRN (19:55)
[2018-05-02] MEDS ORDERED: Ondansetron INJ* 2 MG/ML VIAL IV PRN (19:55)
[2018-05-02 20:19] LABS: Hematocrit 22 % (42-52); Hemoglobin 7.3 g/dl (14.0-18.0)
--- NOTE | 2018-05-02 22:27 | HP ---
CC: Dr. Johnston; Dr. Siu; Dr. Olmedo * HISTORY AND PHYSICAL: DATE OF ADMISSION: 05/02/18 PRIMARY CARE PROVIDER: Dr. Johnston. ATTENDING PHYSICIAN WHILE IN THE HOSPITAL: Nichelle Lagunas MD * (report dictated by Gilbert Moncada NP) CONSULTING PHOTOGRAPHIC PROCESS ATTENDANT: Dr. Siu. PRIMARY SPRINKLER TRUCK DRIVER: Dr. Olmeod. CHIEF COMPLAINT: Melena. HISTORY OF PRESENT ILLNESS: Mr. Ashford is a 78-year-old male patient who was just here in our hospital for a GI bleed. He has a history of cryptogenic cirrhosis. He has undergone a TIPS procedure in the end of February and was complicated by NSTEMI. He had 6 drug-eluting stents placed. Subsequently since then, he, couple of weeks ago on 04/21/18, was admitted here for a presumed GI bleed, even having black, tarry stools. He underwent workup, was found that the culprit lesion we believe is a polyp in his colon. He was transferred to [facility] on 04/21/18 for further evaluation and care for possible polypectomy as it was deemed too high risk to be done here given the fact he is on dual antiplatelet therapy. He went up to [place] and did not undergo polypectomy. They transfused him. They treated him with supportive care, continued his dual antiplatelet therapy. He was discharged on 04/26/18. I am going to try to get records from [place]. His TIPS procedure was revised while he was up there at that time around. He has noticed over the last 4 days that he has been having black, tarry stools throughout the day. He has been feeling progressively weaker. He has not been having any chest pain or shortness of breath. He has been feeling very fatigued. He went and saw Dr. Guillen today and labs were checked and it was noted that his hemoglobin was 6.8. At that point, he was referred to the hospital. His hemoglobin had been 8.2 on 04/30/18. He says he has been having the black, tarry stools. He has not been feeling well. He states he has been feeling just fatigued, tired, but he denied any chest pain. Denied having any shortness of breath. Denied having any abdominal discomfort. Denied having any recent fevers or chills. He came in to the ER today. He was evaluated. Initially, he was going to go back to [facility]. However, it was felt that the plan of care because of aspirin and Plavix could not be stopped would be to continue to keep him here, transfuse him periodically while he was on the aspirin and Plavix. So , we were asked to evaluate for admission. PAST MEDICAL HISTORY: Significant for: 1. Cryptogenic ascites. 2. CAD. 3. NSTEMI. 4. CKD. 5. MGUS. 6. Anemia. 7. SALEEM. 8. Sick sinus syndrome. 9. Bladder cancer. 10. Recent GI bleed. PAST SURGICAL HISTORY: 1. He has had TIPS with revision done last week. 2. Cardiac cath with 6 drug-eluting stents. 3. Cholecystectomy. 4. Appendectomy. 5. Pacemaker placement. HOME MEDICATIONS: He states he is takin. Spironolactone 100 mg daily. 2. Lasix 40 mg daily. 3. Tylenol 650 mg every 6 hours as needed. 4. Crestor 40 mg daily. 5. Metoprolol XL 12.5 mg daily. 6. Plavix 75 mg daily. 7. Aspirin 81 mg daily. ALLERGIES TO MEDICATIONS: Include TAPE, HORSE DANDER, CONTAINING PRODUCTS, LATEX, MIDODRINE, and HORSE SERUM. FAMILY HISTORY: His mother's history is unknown. Father's history, he had a history of bladder cancer. SOCIAL HISTORY: He is a former smoker. He occasionally drinks alcohol. Surrogate decision maker is his . REVIEW OF SYSTEMS: There is no documented fever. He denies having any significant weight change. There is no double vision. He denies having any ear discharge. He denied having any rhinorrhea. There is no sore throat. He denies having any thyroid enlargement. Denies having any chest pain. There is no orthopnea. He denies having any nocturnal dyspnea. There was no abdominal pain. There is no nausea, no vomiting. There is no dysuria. There is no frequency. There is no seizure, no loss of consciousness. No pruritus and no skin ulcerations. Review of 14 systems completed, all others negative. PHYSICAL EXAMINATION GENERAL: At this time, Mr. Ashford is a 78-year-old male patient. He is sitting in the ED stretcher. He does not appear to be in any acute distress. He appears to be well nourished. He appears to be chronically ill appearing. VITAL SIGNS: Blood pressure 102/50 with a pulse of 74, respirations 15, O2 sat 98%, temperature 98.6. HEENT: Head: Atraumatic and normocephalic. Eyes: EOMs are intact. Sclerae anicteric and not pale. Throat: Oral mucosa appears to be moist. No oropharyngeal erythema. NECK: Supple. LUNGS: Clear to auscultation bilaterally. There were no wheezes, rales, or rhonchi. HEART: Sounds S1, S2. He had a regular rate and rhythm. He had no murmurs, rubs, or gallops. ABDOMEN: Soft. It was flat. There was ascites. It was nontender. EXTREMITIES: He had +2 pitting edema bilaterally. He had 5/5 strength. NEUROLOGIC: He is awake. He is alert. He is oriented x3. His tongue is midline. He had no gross focal deficits. SKIN: Grossly intact. LABORATORY DATA/DIAGNOSTIC STUDIES: Labs today, WBC of 3.9, RBC of 2.28, hemoglobin of 7, hematocrit 21, platelets 185. INR 0.98. Sodium 135, potassium of 3.8, chloride 109, bicarb 22, BUN 34, creatinine 2.29, glucose 162. Calcium 7.6. Total bili 0.6, AST 29, ALT 21, alk phos 142. His albumin was 2.1. He had an EKG, which showed ventricular paced rhythm, rate of 72, similar to previous EKG. Old medical records were reviewed. ASSESSMENT AND PLAN: Mr. Ashford is a 78-year-old male patient coming in to the ED today with complaints of having tarry stools over the last 4 days, now found to be anemic. He will be admitted under inpatient status for: 1. GI bleed. Suspect secondary lower GI bleed given his previous C-scopes and the fact that he had a recent upper endoscopy. I did touch base with GI. The plan would be to transfuse him. He did receive his Plavix today. I am going to hold it starting tomorrow morning. I will continue his aspirin. Just until he is stabilizes, I am holding the Plavix. We could consider restarting this tomorrow. We will need to touch base formally with Cardiology to discuss how long we could hold Plavix for should intervention be pursued such as surgical resection or polypectomy. So that needs to be discussed between GI and Cardiology. At this point though, I am going to transfuse him 2 units of blood. He has received 1 unit. We will get 2 saline locks, serial H and H's. We will continue to follow him closely. I am also going to get records from [place]. 2. Cryptogenic ascites. Follow with his primary pipe smoker machine operator. I will go ahead and hold his Lasix and his spironolactone. We will diurese him as needed. 3. Coronary artery disease. He is on statin. I will continue the statin, aspirin. His blood pressure is a little soft. It is in the upper 90s to low 100s systolics. I am holding his beta-paramjit. We will restart this when able. 4. Chronic kidney disease. His creatinine today is a little elevated. It is 2.29. It was 2.36 previously. His baseline appears to be right around 2. We will transfuse him and monitor this closely. 5. History of monoclonal gammopathy of undetermined significance. Follow with his PCP and his primary oncologist, Dr. Guillen. 6. Obstructive sleep apnea. I will order a CPAP. 7. Sick sinus syndrome. He has a pacemaker. 8. Bladder cancer. Follow up with PCP. 9. DVT prophylaxis. I have ordered SCDs. 10. Code status. Full code. 11. Fluids, electrolytes, and nutrition. He can have a clear liquid diet. TIME SPENT: Time spent on the admission 60 minutes, greater than half the time spent [id number] with the patient obtaining my history and physical; other half the time spent going over the plan of care with the patient and implementing plan of care. I did discuss the plan of care with my attending, Dr. Lagunas; she is in agreement. GILBERT MONCADA, DARLENE [id number]/[facility] #: [id number] GALO
--- NOTE | 2018-05-02 23:48 | PN ---
Progress Note - Progress Note Date of Service: 05/02/18 Note: GASTROENTEROLOGY CONSULT Formal consult note to follow - it has been dictated. Patient well known to service. Now with ongoing/recurrent melena in setting of dual anti-platelet therapy. Suspected source of oozing are large pedunculated right colon polyps. Unfortunately, we are unable to remove these polyps while he is on DAPT; however, he must remain on these medications from cardiac standpoint. Agree with admission with transfusion and observation to ensure patient is not rapidly dropping his blood counts. He should continue on ASA/ Plavix as previously recommended by cardiology -- we would not recommend holding from GI bleed standpoint given his recent cardiac stenting. If he remains stable during an observation period after transfusions, then he can likely continue to have close monitoring of his blood counts in outpatient setting with PRN transfusions. May consider video capsule endoscopy, likely in outpatient setting, if he remains stable to rule-out any alternate small bowel source. Conversely, we could discuss VCE +/- repeat colonoscopy inpatient if bleeding increases or blood counts fail to stabilize.
--- NOTE | 2018-05-03 01:30 | CONS ---
GASTROENTEROLOGY CONSULT NOTE: DATE OF CONSULT: 05/02/18 REASON FOR CONSULT: Melena. HISTORY OF PRESENT ILLNESS: Mr. Ashford is a 78-year-old gentleman well known to our gastroenterology service with a history of idiopathic portal hypertension status post TIPS with revision, CAD with recent acute [place] requiring drug- eluting stent, and recent hospitalization for melena and anemia, who is readmitted with melena and anemia. Mr. Ashford was seen by GI at [facility] around 2 weeks ago after he presented with intermittent melena and was noted to be anemic. An upper endoscopy was unrevealing. The patient underwent a colonoscopy on 04/20/18. The colonoscopy demonstrated multiple large pedunculated polyps in the right and transverse colon. One particular polyp was noted to be erythematous with white cap/ exudate. This was biopsied and returned positive for inflammatory retention polyp. There was no active bleeding at the time of the colonoscopy. The suspicion is that patient may be having oozing or bleeding related to these large polyps in the setting of his dual- antiplatelet therapy. Ultimately, it was recommended that he be transferred to [place] if he did not stabilize. He was eventually sent to [place] where he was admitted for several days. Per the patient and , his bleeding essentially stopped while he was there. He did not undergo any further procedures for bleeding. He did undergo a TIPS revision while he was there. Since he was discharged, he has been doing fairly well with the hemoglobin remaining around 8. However, over the past few days he has developed recurrent melena. He had about 5 episodes of melena yesterday and about 2 episodes of melena today. He has not seen any red blood. He feels quite tired today and presented to the ER for further evaluation. In the ER, he was noted to be hemodynamically stable with a hemoglobin of 6.8, down from 8.2 on 04/30/18. GI consulted. I did speak with Dr. Looney, the patient's fire lieutenant at [place], and Dr. Isaac Ruiz, the patient's primary contact lens blocker here in [place]. Review of that discussion to follow at the end of this note in the impression and recommendation section. PAST MEDICAL HISTORY: Coronary artery disease with recent cardiac stenting, underwent a platelet therapy, idiopathic portal hypertension, status post TIPS for refractory ascites, sleep apnea, sick sinus syndrome. PAST SURGICAL HISTORY: Appendectomy, pacemaker, bladder surgery, TURP, cholecystectomy, cataract removal, TIPS. MEDICATIONS: Reviewed. Home medications are reviewed and include (but are not limited to): 1. Aspirin. 2. Plavix. 3. Pantoprazole. 4. He is also on diuretics and beta-paramjit as well as a statin. ALLERGIES: No known drug allergies. FAMILY HISTORY: No family history of GI or liver disease. SOCIAL HISTORY: No smoking or alcohol use. 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 REVIEW OF SYSTEMS: Negative except as above for 05/13 systems. PHYSICAL EXAM: Vital Signs: Temp 98.4, heart rate 69, blood pressure 93/59. General: He is a pleasant, but chronically ill and tired-appearing gentleman, no acute distress, accompanied by . HEENT: Mucous membranes are moist. Cardiovascular: Regular rate and rhythm. No murmurs, rubs, or gallops. Pulmonary: Breathing comfortably. Lungs are clear to auscultation. Abdomen: Soft, nontender, nondistended. DIAGNOSTIC STUDIES/LAB DATA: Labs: Reviewed. Hematocrit 21; hemoglobin 7, this is down from hemoglobin of closer to 8 in the week. Studies: Colonoscopy report summarized in HPI. A CT abdomen and pelvis was obtained after the colonoscopy during the last admission, which just showed a large amount of ascites, no acute abnormality of the GI tract, although it was noted that the exam was limited as it was noncontrast study. IMPRESSION AND RECOMMENDATIONS: Mr. Ashford is a 78-year-old gentleman with a complicated history including non-cirrhotic portal hypertension, status post TIPS for refractory ascites with a recent revision, coronary artery disease, status post recent myocardial infarction with stent placement on dual- antiplatelet therapy, and recent admission for GI bleed suspected to be related large pedunculated polyps in the right colon with oozing likely secondary to the dual-antiplatelet therapy, who was admitted with down trending hemoglobin and recurrent melena. This is a complicated case. Unfortunately, we believe that the polyps may be the source of the slow oozing in the setting of his aspirin and Plavix. He is unable to have the aspirin and Plavix held due to the recent placement of his cardiac stent. We are also unable to remove these large polyps while he is on dual-antiplatelet therapy. The discussion between myself, Dr. Ruiz, and Dr. Looney (patient's fire lieutenant at [place]) has been that we will likely need to monitor the patient and transfuse as needed for now assuming patient remains with slow ongoing blood loss. Polypectomy would be performed when Plavix can safely be held (possibly 6-12 months after stent placed, defer to cardiology). Therefore, we agree with admission for observation and blood transfusion with higher goal Hgb given cardiac history. - If the melena or GI bleeding appears to increase dramatically or the patient is unable to remain stable in regards to his blood counts, then we will have to discuss if there is utility in repeating a colonoscopy to evaluate for any potential intervenable sources (ie: AVM or Dieulafoy - not seen during prior exam). As we suspect that the source is the large polyps arepeat colonoscopy in the absence of acute change is unlikely to be high yield. - If the patient is able to remain stable after he is transfused, then we may be able to work together with the patient's primary care doctor or dispatch officer to have regular outpatient blood draws and receive blood transfusions in an outpatient setting if his blood counts drift down. Again, this would hopefully be only a short-term solution with a more definitive endoscopic management plan for the polyps once he is able to be taken off the Plavix temporarily. - We will consider a capsule study to rule out any possible additional source of bleeding in the small bowel. This can be arranged in the outpatient setting if the patient remains stable over the next 24-48 hours or so. I spent quite a bit of time talking to the patient and his regarding this plan. They were in agreement. Thank you for this consult. [id number]/[facility] #: [id number] GALO
[2018-05-03 02:03] LABS: Hematocrit 24 % (42-52); Hemoglobin 8.2 g/dl (14.0-18.0)
[2018-05-03 08:45] LABS: ABS Basophils 0.1 10^3/ul (0-0.2); ABS Eosinophils 0.1 10^3/ul (0-0.6); ABS Lymphocytes 0.9 10^3/ul (1.0-4.8); ABS Monocytes 0.3 10^3/ul (0-0.8); ABS Neutrophils 2.3 10^3/ul (1.5-7.7); ABS Nucleated RBC 0 10^3/ul; Eosinophil % 2.2 % (0-6); Hematocrit 25 % (42-52); Hemoglobin 8.6 g/dl (14.0-18.0); Lymphocyte % 25.1 % (25-47); Mean Corpuscular HGB Conc 35 g/dl (31-36); Mean Corpuscular Hemoglobin 31 pg (27-31); Mean Corpuscular Volume 91 fL (80-94); Nucleated Red Blood Cells % 0.1; Platelet Count 161 10^3/ul (150-450); Red Blood Count 2.76 10^6/ul (4.00-5.40); Red Cell Distribution Width 17 % (10.5-15); White Blood Count 3.7 10^3/ul (3.5-10.8)
[2018-05-03] MEDS ORDERED: Clopidogrel TAB* 75 MG PO SCH ×2 (09:00)
[2018-05-03 09:03] LABS: EGFR Non-African American 30.2 (>60)
[2018-05-03] MEDS: Aspirin EC TAB* 81 MG TAB.EC PO SCH (09:27)
[2018-05-03] MEDS: CMC:Rosuvastatin (NF) 20 MG TAB PO SCH (09:27)
[2018-05-03] MEDS: Clopidogrel TAB* 75 MG PO SCH (09:27)
[2018-05-03] MEDS ORDERED: NS 0.9% 500 ML* 500 ML IV ONE (12:04)
[2018-05-03] MEDS ORDERED: NS 0.9% 1000 ML* 1,000 ML IV SCH (12:15)
[2018-05-03 13:01] LABS: ABS Basophils 0 10^3/ul (0-0.2); ABS Eosinophils 0 10^3/ul (0-0.6); ABS Lymphocytes 1.2 10^3/ul (1.0-4.8); ABS Monocytes 0.4 10^3/ul (0-0.8); ABS Neutrophils 2.1 10^3/ul (1.5-7.7); ABS Nucleated RBC 0 10^3/ul; Eosinophil % 1.1 % (0-6); Hematocrit 26 % (42-52); Hemoglobin 8.8 g/dl (14.0-18.0); Lymphocyte % 31.2 % (25-47); Mean Corpuscular HGB Conc 34 g/dl (31-36); Mean Corpuscular Hemoglobin 31 pg (27-31); Mean Corpuscular Volume 91 fL (80-94); Mean Platelet Volume 7.5 um3 (7.4-10.4); Nucleated Red Blood Cells % 0.1; Platelet Count 164 10^3/ul (150-450); Red Blood Count 2.82 10^6/ul (4.00-5.40); Red Cell Distribution Width 17 % (10.5-15); White Blood Count 3.7 10^3/ul (3.5-10.8)
[2018-05-03 17:09] LABS: ABS Basophils 0 10^3/ul (0-0.2); ABS Eosinophils 0 10^3/ul (0-0.6); ABS Lymphocytes 0.7 10^3/ul (1.0-4.8); ABS Monocytes 0.3 10^3/ul (0-0.8); ABS Neutrophils 1.7 10^3/ul (1.5-7.7); ABS Nucleated RBC 0 10^3/ul; Eosinophil % 1.3 % (0-6); Hematocrit 23 % (42-52); Hemoglobin 7.8 g/dl (14.0-18.0); Lymphocyte % 26.2 % (25-47); Mean Corpuscular HGB Conc 34 g/dl (31-36); Mean Corpuscular Hemoglobin 31 pg (27-31); Mean Corpuscular Volume 92 fL (80-94); Mean Platelet Volume 8.2 um3 (7.4-10.4); Nucleated Red Blood Cells % 0.1; Platelet Count 143 10^3/ul (150-450); Red Blood Count 2.51 10^6/ul (4.00-5.40); Red Cell Distribution Width 17 % (10.5-15); White Blood Count 2.7 10^3/ul (3.5-10.8)
--- NOTE | 2018-05-03 19:28 | PN ---
Subjective Date of Service: 05/03/18 Interval History: Pt seen and examined. Meds and labs reviewed. CC: Hypotension ROS: Denied VIEYRA/dizziness, F/C, N/V, CP, SOB, increased cough, sputum production , abd pain, diarrhea, constipation, dysuria, myalgias, arthralgias, throat pain , and new skin lesions. The rest of the 14 point ROS are unremarkable. PHYSICAL EXAM: GEN APPEARANCE: Awake, not in acute distress HEENT: NC/AT, PERRLA, moist oral mucosa, (-) throat erythema NECK: Soft, supple, (-) cervical LAD, (-)JVD HEART: S1S2 WNL, RRR, No MRG CHEST: CTA, BL, GAE, No W/R/R ABD: Soft, Slightly distended dull on percussion on lateral areas, tympanitic in center /NT, NABS 4x Q EXT: No C/C/E SKIN: Warm to touch PSYCH: No active psychosis, hallucinations, depression, SI/HI Objective Active Medications: Acetaminophen (Tylenol Tab*) 650 mg PO Q4H PRN PRN Reason: FEVER/PAIN Aspirin (Aspirin Ec Tab*) 81 mg PO DAILY [facility] Last Admin: 05/03/18 09:27 Dose: 81 mg Clopidogrel Bisulfate (Plavix Tab*) 75 mg PO DAILY [facility] Last Admin: 05/03/18 09:27 Dose: 75 mg Sodium Chloride (Ns 0.9% 1000 Ml*) 1,000 mls @ 125 mls/hr IV PER RATE [facility] Stop: 05/03/18 20:14 Last Admin: 05/03/18 13:23 Dose: 125 mls/hr Ondansetron HCl (Zofran Inj*) 4 mg IV Q6H PRN PRN Reason: NAUSEA Rosuvastatin Calcium (Crestor (Nf)) 40 mg PO DAILY [facility] Last Admin: 05/03/18 09:27 Dose: 40 mg Vital Signs - 8 hr 05/03/18 05/03/18 13:41 15:46 Temperature 98.1 F Pulse Rate 75 Respiratory 20 Rate Blood Pressure 104/42 102/40 (mmHg) O2 Sat by Pulse 99 Oximetry Oxygen Devices in Use Now: None Result Diagrams: 05/03/18 17:02 05/03/18 08:33 Assess/Plan/Problems-Billing Assessment: - Patient Problems (1) GIB (gastrointestinal bleeding) Current Visit: Yes Status: Acute Code(s): K92.2 - GASTROINTESTINAL HEMORRHAGE, UNSPECIFIED SNOMED Code(s): 15560440 Comment: -Likely due to multiple large pedunculated polyps of ascending and transverse colon per GI -S/P 2 units of PRBC transfusion yesterday -Pt found to be hypotensive earlier and was bloused and placed on IVFs -Instructed RN to have two large bore needle at least 18 gauge in size -Pts repeat H&H at time of hypotension within baseline, however, repeat H&H at 1600 shows 1g decrease of Hgb---will re-transfuse with 2 more units of PRBC. -Presumably pt had an in-stent thrombosis of his BMS and hence had KASSY placed post TIPS at [place] -D/W Dr. 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 given history of CAD S/P NSTEMI, CKD due to MGUS -Defer with GI MD in outpt to follow (3) CAD (coronary artery disease) Current Visit: No Status: Chronic Code(s): I25.10 - ATHSCL HEART DISEASE OF [place] CORONARY ARTERY W/O ANG PCTRS SNOMED Code(s): 12753144 Comment: #SSS: -Continue ASA , Plavix, and Rosuvastatin (4) CKD (chronic kidney disease) Current Visit: No Status: Chronic Code(s): N18.9 - CHRONIC KIDNEY DISEASE, UNSPECIFIED SNOMED Code(s): 753636904 Comment: -Stable -Continue watchful waiting -Secondary to MGUS -Defer with neprhology F/U outpt (5) SALEEM (obstructive sleep apnea) Current Visit: No Status: Chronic Code(s): G47.33 - OBSTRUCTIVE SLEEP APNEA (ADULT) (PEDIATRIC) SNOMED Code(s): 75628524 Comment: -Continue CPAP (6) DVT prophylaxis Current Visit: No Status: Acute Code(s): IIN5714 - SNOMED Code(s): 144339723 Comment: - SCDs -Pharmacologic prophylaxis contraindicated Status and Disposition: -As above
[2018-05-04 07:45] LABS: ABS Basophils 0 10^3/ul (0-0.2); ABS Eosinophils 0.1 10^3/ul (0-0.6); ABS Lymphocytes 0.7 10^3/ul (1.0-4.8); ABS Monocytes 0.4 10^3/ul (0-0.8); ABS Neutrophils 2.8 10^3/ul (1.5-7.7); ABS Nucleated RBC 0 10^3/ul; Hematocrit 27 % (42-52); Hemoglobin 9.1 g/dl (14.0-18.0); Lymphocyte % 17.5 % (25-47); Mean Corpuscular HGB Conc 34 g/dl (31-36); Mean Corpuscular Hemoglobin 30 pg (27-31); Mean Corpuscular Volume 90 fL (80-94); Mean Platelet Volume 8.1 um3 (7.4-10.4); Nucleated Red Blood Cells % 0.2; Platelet Count 138 10^3/ul (150-450); Red Blood Count 3.02 10^6/ul (4.00-5.40); Red Cell Distribution Width 16 % (10.5-15)
[2018-05-04 08:08] LABS: EGFR Non-African American 34.2 (>60)
[2018-05-04] MEDS: CMC:Rosuvastatin (NF) 20 MG TAB PO SCH (08:43)
[2018-05-04] MEDS: Aspirin EC TAB* 81 MG TAB.EC PO SCH (08:45)
[2018-05-04] MEDS: Clopidogrel TAB* 75 MG PO SCH (08:45)
[2018-05-04] MEDS ORDERED: Magnesium Sulf 4 GM/100 ML IV* 4,000 MG/100 ML BAG IVPB ONE (10:30)
[2018-05-04 13:38] LABS: ABS Basophils 0 10^3/ul (0-0.2); ABS Eosinophils 0 10^3/ul (0-0.6); ABS Lymphocytes 0.8 10^3/ul (1.0-4.8); ABS Monocytes 0.3 10^3/ul (0-0.8); ABS Neutrophils 3.6 10^3/ul (1.5-7.7); ABS Nucleated RBC 0 10^3/ul; Hematocrit 30 % (42-52); Hemoglobin 10.4 g/dl (14.0-18.0); Lymphocyte % 16.1 % (25-47); Mean Corpuscular HGB Conc 35 g/dl (31-36); Mean Corpuscular Hemoglobin 31 pg (27-31); Mean Corpuscular Volume 90 fL (80-94); Mean Platelet Volume 7.9 um3 (7.4-10.4); Nucleated Red Blood Cells % 0; Platelet Count 159 10^3/ul (150-450); Red Blood Count 3.33 10^6/ul (4.00-5.40); Red Cell Distribution Width 17 % (10.5-15); White Blood Count 4.7 10^3/ul (3.5-10.8)
--- NOTE | 2018-05-04 17:16 | PN ---
Subjective Date of Service: 05/04/18 Interval History: Pt seen and examined. Meds and labs reviewed. CC: N/A ROS: Denied VIEYRA/dizziness, F/C, N/V, CP, SOB, increased cough, sputum production , abd pain, diarrhea, constipation, dysuria, myalgias, arthralgias, throat pain , and new skin lesions. The rest of the 14 point ROS are unremarkable. PHYSICAL EXAM: GEN APPEARANCE: Awake, not in acute distress HEENT: NC/AT, PERRLA, moist oral mucosa, (-) throat erythema NECK: Soft, supple, (-) cervical LAD, (-)JVD HEART: S1S2 WNL, RRR, No MRG CHEST: CTA, BL, GAE, No W/R/R ABD: Soft, Slightly distended dull on percussion on lateral areas, tympanitic in center /NT, NABS 4x Q, stable in size EXT: No C/C/E SKIN: Warm to touch PSYCH: No active psychosis, hallucinations, depression, SI/HI Objective Active Medications: Acetaminophen (Tylenol Tab*) 650 mg PO Q4H PRN PRN Reason: FEVER/PAIN Aspirin (Aspirin Ec Tab*) 81 mg PO DAILY [facility] Last Admin: 05/04/18 08:45 Dose: 81 mg Clopidogrel Bisulfate (Plavix Tab*) 75 mg PO DAILY [facility] Last Admin: 05/04/18 08:45 Dose: 75 mg Ondansetron HCl (Zofran Inj*) 4 mg IV Q6H PRN PRN Reason: NAUSEA Rosuvastatin Calcium (Crestor (Nf)) 40 mg PO DAILY [facility] Last Admin: 05/04/18 08:43 Dose: 40 mg Vital Signs - 8 hr 05/04/18 10:55 Temperature 97.8 F Pulse Rate 83 Respiratory 18 Rate Blood Pressure 98/40 (mmHg) O2 Sat by Pulse 98 Oximetry Oxygen Devices in Use Now: Nasal Cannula Result Diagrams: 05/04/18 13:23 05/04/18 07:21 Assess/Plan/Problems-Billing Assessment: - Patient Problems (1) GIB (gastrointestinal bleeding) Current Visit: Yes Status: Acute Code(s): K92.2 - GASTROINTESTINAL HEMORRHAGE, UNSPECIFIED SNOMED Code(s): 15876805 Comment: -Likely due to multiple large pedunculated polyps of ascending and transverse colon per GI -S/P 4 units of PRBC transfusion total -Repeat H&H at 1300 is re-assuring -Presumably pt had an in-stent thrombosis of his BMS and hence had KASSY placed post TIPS at [place] likely from NSTEMI post-TIPS?? -D/W Dr. Mena (2) Anemia Current Visit: No Status: Acute Code(s): D64.9 - ANEMIA, UNSPECIFIED SNOMED Code(s): 628362485 Comment: -Likely due to acute on chronic GIB due to above -Iron studies last month suggests DAGMAR -Avoid oral Iron therapy given it will complicate surveillance of any GIB -D/W Dr. 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 given history of CAD S/P NSTEMI, CKD due to MGUS -Defer with GI MD in outpt to follow (4) CAD (coronary artery disease) Current Visit: No Status: Chronic Code(s): I25.10 - ATHSCL HEART DISEASE OF [place] CORONARY ARTERY W/O ANG PCTRS SNOMED Code(s): 70180163 Comment: #SSS: -Continue ASA , Plavix, and Rosuvastatin (5) CKD (chronic kidney disease) Current Visit: No Status: Chronic Code(s): N18.9 - CHRONIC KIDNEY DISEASE, UNSPECIFIED SNOMED Code(s): 643426945 Comment: -Stage 3 -Stable -Continue watchful waiting -Secondary to MGUS -Defer with neprhology F/U outpt (6) SALEEM (obstructive sleep apnea) Current Visit: No Status: Chronic Code(s): G47.33 - OBSTRUCTIVE SLEEP APNEA (ADULT) (PEDIATRIC) SNOMED Code(s): 40707871 Comment: -Continue CPAP (7) DVT prophylaxis Current Visit: No Status: Acute Code(s): LNJ6855 - SNOMED Code(s): 490963728 Comment: - SCDs -Pharmacologic prophylaxis contraindicated Status and Disposition: -Possible D/C in AM if H&H remains stable -Will await PT eval for D/C planning
[2018-05-04] MEDS ORDERED: Vancomycin(*) 1,500 MG in NS 0.9% 250 ML* 250 ML IVPB ONE (19:12)
[2018-05-04] MEDS ORDERED: Vancomycin(*) 0 MG in NS 0.9% 250 ML* 250 ML IVPB SCH (20:00)
[2018-05-04] MEDS ORDERED: Zosyn per Pharmacy* NOTE FOLLOW UP SCH (20:00)
[2018-05-04 20:42] LABS: Urine Appearance Clear; Urine Blood Negative (Negative); Urine Color Yellow; Urine Ketones Negative (Negative); Urine Protein 1+(30 mg/dL) (Negative); Urine Red Blood Cell Absent (Absent); Urine Specific Gravity 1.016 (1.010-1.030); Urine Urobilinogen Positive (Negative); Urine White Blood Cell Trace(0-5/hpf) (Absent)
--- NOTE | 2018-05-04 21:12 | PN ---
Progress Note - Progress Note Date of Service: 05/04/18 Note: GI Progress Note Patient seen and examined. Family at bedside. Scant blood today. He states he developed chills in last hour or two. No dysuria or hematuria. No diarrhea. He states his belly feels about same but hasnt had good BM. No confusion. VS: BP: 119/49, P-102, R-20, T- 98.2 Gen: alert, rigors HEENT: at/nc, perrla, eomi, sclera anicteric, conjunctiva pink CVS: tachycardic s1s2 Resp: diminished at base Abd: soft, mild distention, bs mildly hypoactive Ext: no clubbing or cyanosis Skin: no visible rash Lab: Hgb: 10.4, WBC 4.7, Cr 1.92, Bili 1.2, AlkP 123, Alb 1.8 A/P 1.)Acute on chronic anemia due to blood loss: Prior EGD without source or fresh blood. Last colon with ulcerated large (over 3-4cm+) polyps per report. H/H stable, today, scant blood. Will be getting IV iron infusions via heme with PRN transfusion. Will plan capsule endoscopy next week as outpatient to r/o small bowel etiology. If negative will eventually need colon w/polypectomy with advanced [facility] due to size. On 05/03 I discussed the case with his Journeyman Welder/GI Dr. Looney in [place]. He states high risk with synergy stent and recent MS to hold plavix even with cardiology input. Prefer conservative IV iron and transfusion PRN unless very briskly bleeding to try to get him longer duration of plavix/asa. 2. Idiopathic portal HTN: MeldNa 13. Following with [facility] 3. Chills/Rigors: infectious w/u in progress via PMD. 4. Constipation: add lactulose. 5. Severe protein calorie malnutrition: would recommend nutrition eval, ok to advance diet as mady he needs the calories. Will follow. Shady Reinoso DO 05/04/181999
[2018-05-04] MEDS: Piperacillin/Tazobac ADVAN(*) 3.375 GM in NS 0.9% 100 ML* 100 ML IVPB SCH (21:33)
[2018-05-05] MEDS ORDERED: NS 0.9% 500 ML* 500 ML IV ONE ×3 (03:49→17:36)
[2018-05-05] MEDS: Piperacillin/Tazobac ADVAN(*) 3.375 GM in NS 0.9% 100 ML* 100 ML IVPB SCH ×3 (03:56→21:15)
[2018-05-05] MEDS ORDERED: NS 0.9% 1000 ML* 1,000 ML IV SCH (05:00)
[2018-05-05 05:07] LABS: Hematocrit 28 % (42-52); Hemoglobin 9.6 g/dl (14.0-18.0); Mean Corpuscular HGB Conc 34 g/dl (31-36); Mean Corpuscular Hemoglobin 31 pg (27-31); Mean Corpuscular Volume 90 fL (80-94); Mean Platelet Volume 7.5 um3 (7.4-10.4); Platelet Count 152 10^3/ul (150-450); Red Blood Count 3.13 10^6/ul (4.00-5.40); Red Cell Distribution Width 17 % (10.5-15); White Blood Count 14.5 10^3/ul (3.5-10.8)
[2018-05-05 05:13] LABS: INR 1.04 (0.77-1.02)
[2018-05-05 05:24] LABS: EGFR Non-African American 33.4 (>60)
[2018-05-05] MEDS ORDERED: NS 0.9% 1000 ML* 1,000 ML IV ONE (07:13)
--- NOTE | 2018-05-05 07:44 | RAD ---
Indication: Possible fever. GI bleed. Transfusion this morning. Cardiac disease. Comparison: April 22, [address] October 16, 2017 chest radiograph. Technique: Upright AP 1925 hours Report: Diffuse prominence of interstitial markings without significant change. Trace fluid at the RIGHT minor fissure. Negative for pneumothorax. Negative for cardiomegaly. RIGHT atrial and RIGHT ventricular level pacemaker leads. Mildly ill-defined central pulmonary vasculature. Suggestion of distention of the superior vena cava compared with the prior exam. IMPRESSION: #. Probable mild pulmonary vascular congestion. R1
[2018-05-05] MEDS: Aspirin EC TAB* 81 MG TAB.EC PO SCH (10:09)
[2018-05-05] MEDS: Clopidogrel TAB* 75 MG PO SCH (10:09)
[2018-05-05] MEDS: CMC:Rosuvastatin (NF) 20 MG TAB PO SCH (10:09)
[2018-05-05] MEDS ORDERED: NS 0.9% 250 ML* 250 ML IV ONE (11:34)
[2018-05-05] MEDS: Albumin Human 25%* 25 GM/100 ML BTL IV SCH ×5 (11:55→23:45)
--- NOTE | 2018-05-05 13:25 | RAD ---
INDICATION: RIGHT lower extremity edema. Evaluate for DVT. COMPARISON: April 19, 2018 TECHNIQUE: Villagran scale, color Doppler, and spectral analysis of the deep veins of the RIGHT lower extremity. Vessel compression, phasicity, and augmentation assessed. REPORT: The RIGHT common femoral, great saphenous, profunda femoral, and femoral veins are patent. The popliteal vein is incompletely compressible a new finding compared with the April 19, 2018 exam most consistent with nonocclusive acute DVT. The posterior tibial and peroneal calf veins appear grossly patent. Patency of the LEFT common femoral vein documented. IMPRESSION: The popliteal vein is incompletely compressible a new finding compared with the April 19, 2018 exam most consistent with nonocclusive acute DVT.
--- NOTE | 2018-05-05 13:30 | RAD ---
Indication: Hepatic cirrhosis. Post TIPS placement. Comparison: April 22, 2018 CT. Technique: RIGHT upper quadrant ultrasound. Report: Appropriate direction flow documented in the TIPS. Appropriate direction flow documented in the hepatic veins. 15.2 cm nodular surface contour liver is echogenic in echogenicity. No visible focal liver lesions or intrahepatic fluid collection evident. Negative for intrahepatic biliary dilatation. The common bile duct could not be visualized due to bowel gas limiting the acoustic window. Post cholecystectomy. Negative for sonographic Griffith's sign. The pancreas is obscured due to bowel gas. Moderately large volume of diffuse ascites. 10.9 x 5.6 x 5.9 cm RIGHT kidney without hydronephrosis is remarkable for a 7.8 x 8.8 x 6.4 cm lower pole cortical cyst. IMPRESSION: #. Cirrhotic liver morphology. #. No evidence for focal liver lesion or intrahepatic abscess. #. Appropriate direction flow documented in the TIPS catheter. #. Moderately large volume of ascites.
[2018-05-05] MEDS ORDERED: Lidocaine 2% PF * 5 ML VIAL ONE (15:26)
[2018-05-05] MEDS: NS 0.9% 1000 ML* 1,000 ML IV SCH ×2 (15:36→19:40)
--- NOTE | 2018-05-05 16:05 | OP ---
Operative Report - Blank - Operative Report Date of Operation: 05/05/18 Note: Paracentesis Procedure Note INDICATION: r/o sbp ATTENDING PHYSICIAN: Rc Azul Ultrasound used to nallely location: Yes CONSENT: Consent was obtained from the patient prior to the procedure. Indications, risks , and benefits were explained at length. PROCEDURE SUMMARY: A time-out was performed. My hands were washed immediately prior to the procedure. I wore a surgical cap, mask with protective eyewear, sterile gown and sterile gloves throughout the procedure. The area was cleansed and draped in usual sterile fashion using chlorhexidine scrub. Anesthesia was achieved with 1% lidocaine. The RLQ of the abdomen was prepped and draped in a sterile fashion using chlorhexidine scrub. 1% lidocaine was used to numb the skin, soft tissue and peritoneum. The paracentesis catheter was inserted and advanced with negative pressure until bloody fluid was aspirated. Approximately 60 mL of ascitic fluid was collected and sent for laboratory analysis. The catheter was then connected to the vaccutainer and 7 liters of additional ascitic fluid were drained. The catheter was removed and no leaking was noted. A bandaid was placed over the puncture wound. The patient tolerated the procedure well without any immediate complications. Estimated blood loss was none.
[2018-05-05 16:48] LABS: Hematocrit 26 % (42-52); Hemoglobin 8.7 g/dl (14.0-18.0); Mean Corpuscular HGB Conc 34 g/dl (31-36); Mean Corpuscular Hemoglobin 31 pg (27-31); Mean Corpuscular Volume 91 fL (80-94); Mean Platelet Volume 8.1 um3 (7.4-10.4); Platelet Count 117 10^3/ul (150-450); Red Blood Count 2.84 10^6/ul (4.00-5.40); Red Cell Distribution Width 17 % (10.5-15); White Blood Count 6.1 10^3/ul (3.5-10.8)
--- NOTE | 2018-05-05 17:54 | PN ---
Subjective Date of Service: 05/05/18 Interval History: Pt seen and examined. Meds and labs reviewed. Saw pts VS this AM when I reviewed pts data and pt already being bloused with NS. Added additional boluses with IV albumin for total of 150g/24 hr. Please see discussion below. CC: Hypotension ROS: Denied VIEYRA/dizziness, F/C, N/V, CP, SOB, increased cough, sputum production , abd pain, diarrhea, constipation, dysuria, myalgias, arthralgias, throat pain , and new skin lesions. The rest of the 14 point ROS are unremarkable. PHYSICAL EXAM: GEN APPEARANCE: Awake, not in acute distress HEENT: NC/AT, PERRLA, moist oral mucosa, (-) throat erythema NECK: Soft, supple, (-) cervical LAD, (-)JVD HEART: S1S2 WNL, RRR, No MRG CHEST: CTA, BL, GAE, No W/R/R ABD: Soft, Increased abdominal distention from baseline /NT, NABS 4x Q, stable in size EXT: No C/C/RLE edema 3+, worsened from baseline SKIN: Warm to touch PSYCH: No active psychosis, hallucinations, depression, SI/HI Objective Active Medications: Acetaminophen (Tylenol Tab*) 650 mg PO Q4H PRN PRN Reason: FEVER/PAIN Last Admin: 05/04/18 19:10 Dose: 650 mg Aspirin (Aspirin Ec Tab*) 81 mg PO DAILY [facility] Last Admin: 05/05/18 10:09 Dose: 81 mg Clopidogrel Bisulfate (Plavix Tab*) 75 mg PO DAILY [facility] Last Admin: 05/05/18 10:09 Dose: 75 mg Piperacillin Sod/Tazobactam (Sod 3.375 gm/ Sodium Chloride) 100 mls @ 25 mls/ hr IVPB Q8H [facility] Last Admin: 05/05/18 13:25 Dose: 25 mls/hr Albumin Human (Albumin Human 25%*) 25 gm in 100 mls @ 1 mls/min IV Q4H [facility] Stop: 05/06/18 08:39 Last Admin: 05/05/18 14:37 Dose: 1 mls/min Sodium Chloride (Ns 0.9% 1000 Ml*) 1,000 mls @ 125 mls/hr IV PER RATE [facility] Last Admin: 05/05/18 15:36 Dose: 125 mls/hr Ondansetron HCl (Zofran Inj*) 4 mg IV Q6H PRN PRN Reason: NAUSEA Last Admin: 05/04/18 20:16 Dose: 4 mg Pharmacy Consult (Zosyn Per Pharmacy*) 1 note FOLLOW UP .ZOSYN PER PHARMACY [facility] Rosuvastatin Calcium (Crestor (Nf)) 40 mg PO DAILY [facility] Last Admin: 05/05/18 10:09 Dose: 40 mg Vital Signs - 8 hr 05/05/18 05/05/18 05/05/18 11:23 11:55 12:28 Temperature 97.4 F Pulse Rate 75 Respiratory 16 Rate Blood Pressure 73/30 70/42 82/41 (mmHg) O2 Sat by Pulse 99 Oximetry 05/05/18 05/05/18 05/05/18 12:45 13:35 14:09 Temperature Pulse Rate Respiratory Rate Blood Pressure 80/38 82/42 92/30 (mmHg) O2 Sat by Pulse Oximetry 05/05/18 05/05/18 14:37 15:20 Temperature 98.2 F Pulse Rate 83 Respiratory 12 Rate Blood Pressure 92/45 107/56 (mmHg) O2 Sat by Pulse 99 Oximetry Oxygen Devices in Use Now: None Result Diagrams: 05/05/18 16:35 05/05/18 04:56 Microbiology and Other Data: Microbiology 05/05/18 16:00 Gram Stain - Final Peritoneal Fluid Assess/Plan/Problems-Billing Assessment: - Patient Problems (1) Hypotension Current Visit: Yes Status: Acute Comment: -Pt either septic from SBP given CXR and U/A are unremarkable for infectious process -Possible compartment syndrome given improved BP after 7L of fluid from paracentesis taken;paracentesis fluid noted to be bloody an hour post paracentesis after improvement of BP, RN informed me BP is dropping and repeat CBC shows slightly decreased H&H---advised RN to bolus with 500 cc NS IV and IV albumin 50 g IV albumin---hypotension could be due to high volume paracentesis recently done -Possibly due to SIRS due to acute RLE DVTdoubt PE at this point as discussed with Dr. Reinoso given pt not tachycardic, not hypoxic on room air, without any complaints of CP; however, given hypotension, agree that PE will need to be ruled out, but is currently not high on the differential; Spoke with Dr. Rogers of Radiology and pt will get a V/Q scan in AM prior to possible transfer upon bed availability at [facility] -Will transfuse pt with 1 unit PRBC given bloody appearance of paracentesis fluid, however, pt and family mentioned it looked like that post-TIPS in [place] -Will repeat CBC in AM upon re-quilibration post transfusion (2) GIB (gastrointestinal bleeding) Current Visit: Yes Status: Acute Code(s): K92.2 - GASTROINTESTINAL HEMORRHAGE, UNSPECIFIED SNOMED Code(s): 04301551 Comment: -Likely due to multiple large pedunculated polyps of ascending and transverse colon per GI -S/P 4 units of PRBC transfusion total in this hospitalization with 1 unit just ordered -Pt had an in-stent thrombosis of his BMS and hence had KASSY placed post TIPS at [place] likely from NSTEMI post-TIPS -D/W Dr. Mena (3) Anemia Current Visit: No Status: Acute Code(s): D64.9 - ANEMIA, UNSPECIFIED SNOMED Code(s): 617523606 Comment: -Likely due to acute on chronic GIB due to above -Iron studies last month suggests DAGMAR -Avoid oral Iron therapy given it will complicate surveillance of any GIB -D/W Dr. 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 -Defer with GI MD in outpt to follow (5) CAD (coronary artery disease) Current Visit: No Status: Chronic Code(s): I25.10 - ATHSCL HEART DISEASE OF [place] CORONARY ARTERY W/O ANG PCTRS SNOMED Code(s): 42481430 Comment: #SSS: -Continue ASA , Plavix, and Rosuvastatin (6) CKD (chronic kidney disease) Current Visit: No Status: Chronic Code(s): N18.9 - CHRONIC KIDNEY DISEASE, UNSPECIFIED SNOMED Code(s): 365474217 Comment: -Stage 3 -Stable -Continue watchful waiting -Secondary to MGUS -Defer with neprhology F/U outpt (7) SALEEM (obstructive sleep apnea) Current Visit: No Status: Chronic Code(s): G47.33 - OBSTRUCTIVE SLEEP APNEA (ADULT) (PEDIATRIC) SNOMED Code(s): 72295325 Comment: -Continue CPAP (8) DVT prophylaxis Current Visit: No Status: Acute Code(s): ICB3251 - SNOMED Code(s): 532077145 Comment: - SCDs -Pharmacologic prophylaxis contraindicated Status and Disposition: -As above
--- NOTE | 2018-05-05 18:29 | OP ---
Operative Report - Blank - Operative Report Date of Operation: 05/05/18 Note: Central Venous Catheter (CVC, Central Line) Placement Date: 05/05/18 Time: 615pm Indication: Hemodynamic monitoring/Intravenous access Attending: Latha Stover time-out was completed verifying correct patient, procedure, site, positioning , and special equipment if applicable. The patient was placed in a dependent position appropriate for central line placement based on the vein to be cannulated. The patients left neck was prepped and draped in sterile fashion. 1 % Lidocaine was used to anesthetize the surrounding skin area. A triple lumen 7- [place] catheter was introduced into the the internal jugular vein using the Seldinger technique and under ultrasound guidance. The catheter was threaded smoothly over the guide wire and appropriate blood return was obtained. Each lumen of the catheter was evacuated of air and flushed with sterile saline. The catheter was then sutured in place to the skin and a sterile dressing applied. Perfusion to the extremity distal to the point of catheter insertion was checked and found to be adequate. Estimated Blood Loss: None The patient tolerated the procedure well and there were no complications.
[2018-05-06] MEDS: Albumin Human 25%* 25 GM/100 ML BTL IV SCH ×2 (03:29→05:27)
[2018-05-06] MEDS: Piperacillin/Tazobac ADVAN(*) 3.375 GM in NS 0.9% 100 ML* 100 ML IVPB SCH (03:48)
[2018-05-06 06:32] LABS: ABS Basophils 0 10^3/ul (0-0.2); ABS Eosinophils 0 10^3/ul (0-0.6); ABS Lymphocytes 0.3 10^3/ul (1.0-4.8); ABS Monocytes 0.3 10^3/ul (0-0.8); ABS Neutrophils 4.7 10^3/ul (1.5-7.7); ABS Nucleated RBC 0 10^3/ul; Eosinophil % 0.6 % (0-6); Hematocrit 25 % (42-52); Hemoglobin 8.5 g/dl (14.0-18.0); Lymphocyte % 6.3 % (25-47); Mean Corpuscular HGB Conc 34 g/dl (31-36); Mean Corpuscular Hemoglobin 31 pg (27-31); Mean Corpuscular Volume 90 fL (80-94); Mean Platelet Volume 8.8 um3 (7.4-10.4); Nucleated Red Blood Cells % 0.1; Platelet Count 102 10^3/ul (150-450); Red Blood Count 2.78 10^6/ul (4.00-5.40); Red Cell Distribution Width 17 % (10.5-15); White Blood Count 5.4 10^3/ul (3.5-10.8)
[2018-05-06 06:37] LABS: INR 1.29 (0.77-1.02)
[2018-05-06 06:53] LABS: EGFR Non-African American 36.9 (>60)
--- NOTE | 2018-05-06 07:37 | PN ---
Subjective Date of Service: 05/06/18 Interval History: No overnight events. Patient states he has had brown nonbloody stools overnight. Slightly short of breath. No CP. No N/V. Ambulating on room air. Confirmed if he gets a bed that [facility] has accepted him for transfer. Objective Active Medications: Acetaminophen (Tylenol Tab*) 650 mg PO Q4H PRN PRN Reason: FEVER/PAIN Last Admin: 05/04/18 19:10 Dose: 650 mg Aspirin (Aspirin Ec Tab*) 81 mg PO DAILY [facility] Last Admin: 05/05/18 10:09 Dose: 81 mg Clopidogrel Bisulfate (Plavix Tab*) 75 mg PO DAILY [facility] Last Admin: 05/05/18 10:09 Dose: 75 mg Piperacillin Sod/Tazobactam (Sod 3.375 gm/ Sodium Chloride) 100 mls @ 25 mls/ hr IVPB Q8H [facility] Last Admin: 05/06/18 03:48 Dose: 25 mls/hr Albumin Human (Albumin Human 25%*) 25 gm in 100 mls @ 1 mls/min IV Q4H [facility] Stop: 05/06/18 08:39 Last Admin: 05/06/18 05:27 Dose: Not Given Sodium Chloride (Ns 0.9% 1000 Ml*) 1,000 mls @ 125 mls/hr IV PER RATE [facility] Last Admin: 05/05/18 19:40 Dose: 125 mls/hr Ondansetron HCl (Zofran Inj*) 4 mg IV Q6H PRN PRN Reason: NAUSEA Last Admin: 05/04/18 20:16 Dose: 4 mg Pharmacy Consult (Zosyn Per Pharmacy*) 1 note FOLLOW UP .ZOSYN PER PHARMACY [facility] Rosuvastatin Calcium (Crestor (Nf)) 40 mg PO DAILY [facility] Last Admin: 05/05/18 10:09 Dose: 40 mg Vital Signs - 8 hr 05/05/18 05/06/18 05/06/18 23:48 00:00 00:31 Temperature 99.1 F Pulse Rate 81 98 Respiratory 9 20 Rate Blood Pressure 80/40 122/63 (mmHg) O2 Sat by Pulse 97 98 Oximetry 05/06/18 05/06/18 05/06/18 01:00 01:30 02:00 Temperature Pulse Rate 87 82 82 Respiratory 17 2 9 Rate Blood Pressure 97/52 93/41 97/39 (mmHg) O2 Sat by Pulse 100 98 99 Oximetry 05/06/18 05/06/18 05/06/18 02:30 03:00 04:00 Temperature Pulse Rate 81 84 80 Respiratory 15 13 13 Rate Blood Pressure 96/39 101/43 95/41 (mmHg) O2 Sat by Pulse 97 98 98 Oximetry 05/06/18 05/06/18 05/06/18 04:29 04:30 05:00 Temperature 98 F Pulse Rate 81 79 Respiratory 16 15 Rate Blood Pressure 103/50 109/56 (mmHg) O2 Sat by Pulse 100 99 Oximetry 05/06/18 05/06/18 05/06/18 05:30 06:00 06:20 Temperature Pulse Rate 77 73 73 Respiratory 14 14 16 Rate Blood Pressure 95/49 82/35 86/39 (mmHg) O2 Sat by Pulse 98 97 99 Oximetry 05/06/18 05/06/18 06:28 06:30 Temperature Pulse Rate 72 77 Respiratory 13 26 Rate Blood Pressure 93/38 91/42 (mmHg) O2 Sat by Pulse 99 99 Oximetry Oxygen Devices in Use Now: None Appearance: NAD Ears/Nose/Mouth/Throat: Mucous Membranes Moist Respiratory: Symmetrical Chest Expansion and Respiratory Effort, - - Diminished b/l Cardiovascular: RRR, - - systolic murmur prominent on left side Abdominal: - - obese, soft, nondistended, diffusely tender, ascites Extremities: - - anasarca +2 Neurological: Alert and Oriented x 3, NL Muscle Strength and Tone Result Diagrams: 05/06/18 06:24 05/06/18 06:24 Microbiology and Other Data: Microbiology 05/05/18 16:00 Gram Stain - Final Peritoneal Fluid Assess/Plan/Problems-Billing Assessment: This is a 78 yr old with recent GIB secondary to polyp and recent in stent restenosis with KASSY who presents with GIB - plans for transfer to [place] - Patient Problems (1) GIB (gastrointestinal bleeding) Current Visit: Yes Status: Acute Code(s): K92.2 - GASTROINTESTINAL HEMORRHAGE, UNSPECIFIED SNOMED Code(s): 23287529 Comment: A. Likely due to multiple large pedunculated polyps of ascending and transverse colon per GI. S/P 5 units PRBCs, most revent on 05/05. H/H stable but remains low and not appropriately rising with transfusions. Patient denies any further GI bleeding overnight. Appears to be slowing down. Plan Needs to continue ASA and Plavix per cardios for recent Stent placement GI following Monitor H&H (2) Hypotension Current Visit: Yes Status: Acute Comment: A. Likely secondary to large volume paracentesis Improved after fluids and albumin. Per transfer center - Patient was to go to [place] for concern for sepsis. No longer meeting criteria. Spoke with Dr. Hinojosa - he discussed talking to Dr. Looney, Patient's agile developer tomorrow for further follow up if transfer is still indicated. No white count or fever. Initial concern from previous provider was a PE as patient now has a new DVT - but low clinical suspicision. Gram stain for fluid was negative. V/Q scan: negative for PE Plan Will hold IVfs for now as he continues to third space Monitor D/C Zosyn change to ceftriaxone in setting of cirrhosis and GI bleed Follow up with Dr. Looney (patient's agile developer) tomorrow 05/07 - Call transfer center and they will arrange discussion for any further follow up for transfer or outpatient follow up Will keep in ICU for today to monitor BP's. (3) Anemia Current Visit: No Status: Acute Code(s): D64.9 - ANEMIA, UNSPECIFIED SNOMED Code(s): 666564251 Comment: A. As above -Likely due to acute on chronic GIB due to above -Iron studies last month suggests DAGMAR Start Oral Iron -D/W Dr. Guillen who mentioned he is planning on giving IV Iron as an outpt and will defer (4) Ascites Current Visit: No Status: Acute Code(s): R18.8 - OTHER ASCITES SNOMED Code (s): 152409604 Comment: A. Paracentesis on 05/05 - s/p 7L removed - S/P TIPS Continue to hold spironolactone and lasix. 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 Patient dx with RLE DVT Anticoagulation C/I in setting of GIB and requiring transfusions during this admission Not being transferred currently Plan Will touch base with Dr. Wong to see if he is a candidate for IVC filter to be done here. (10) SALEEM (obstructive sleep apnea) Current Visit: No Status: Chronic Code(s): G47.33 - OBSTRUCTIVE SLEEP APNEA (ADULT) (PEDIATRIC) SNOMED Code(s): 26362467 Comment: -Continue CPAP (11) Full code status Current Visit: No Status: Acute Code(s): Z78.9 - OTHER SPECIFIED HEALTH STATUS SNOMED Code(s): 251291533 Comment: A - Again readdressed - he confirms he is full code (12) DVT prophylaxis Current Visit: No Status: Acute Code(s): UOA5227 - SNOMED Code(s): 993326688 Comment: - SCDs -Pharmacologic prophylaxis contraindicated
--- NOTE | 2018-05-06 07:52 | RAD ---
Indication: Central line placement. Comparison: May 04, 2018 Technique: Upright AP 1840 hours Report: Tip of the LEFT internal jugular central venous catheter is at the level of the LEFT brachiocephalic vein directed central. Negative for pneumothorax. Mild prominence of the interstitial markings. Grossly clear pleural spaces. RIGHT atrial and RIGHT ventricular level pacemaker leads. Negative for cardiomegaly. Mild prominence of the central pulmonary vasculature. Negative for free air beneath the diaphragm. IMPRESSION: #.Tip of the LEFT internal jugular central venous catheter is at the level of the LEFT brachiocephalic vein directed central. Negative for pneumothorax. #. Mild pulmonary vascular congestion. R1
[2018-05-06] MEDS: CMC:Rosuvastatin (NF) 20 MG TAB PO SCH (09:12)
[2018-05-06] MEDS: Aspirin EC TAB* 81 MG TAB.EC PO SCH (09:12)
[2018-05-06] MEDS: Clopidogrel TAB* 75 MG PO SCH (09:12)
--- NOTE | 2018-05-06 09:30 | RAD ---
INDICATION: GI bleed. RIGHT popliteal vein nonocclusive DVT. COMPARISON: May 05, 2018 chest radiograph and April 22, [address] TECHNIQUE: Dual energy PA and routine lateral views of the chest were obtained. REPORT: Mild prominence of the interstitial markings. Probable small bilateral pleural effusions. Negative for pneumothorax. RIGHT atrial and RIGHT ventricular level pacemaker leads. Negative for cardiomegaly. Unremarkable central pulmonary vasculature. Tip of LEFT IJ central venous catheter at level of LEFT brachiocephalic vein directed central. IMPRESSION: #. Unchanged mild prominence of interstitial markings. #. No peripheral wedge-shaped pulmonary opacities evident to suggest infarct. #. Probable small pleural effusions.
--- NOTE | 2018-05-06 09:32 | RAD ---
Indication: Nonocclusive RIGHT popliteal vein DVT. Assess for pulmonary embolism. Comparison: Chest radiograph of the same date. Technique: Following administration of 14.200 mCi xenon-133 by inhalation anterior and posterior ventilation images were obtained. Following the administration of 6.400 mCi of Tc-99m macroaggregated albumin, perfusion images were obtained in multiple projections. Report: The ventilation pattern is uniform with mild bilateral air trapping. Photopenic defect related to the LEFT chest wall pacemaker control device noted. Negative for segmental or subsegmental perfusion defects. IMPRESSION: #. No scintigraphic evidence for pulmonary embolism. #. Air trapping consistent with obstructive lung disease.
[2018-05-06] MEDS: Ferrous Sulfate TAB* 325 MG PO SCH ×2 (13:49→20:07)
[2018-05-06] MEDS: cefTRIAXone(*) 1 GM in NS 0.9% 50 ML* 50 ML IVPB SCH (14:04)
[2018-05-06] MEDS ORDERED: Propofol* 10 MG/ML 20 ML BTL IV PUSH ONE (15:59)
[2018-05-06] MEDS ORDERED: Lidocaine 2% PF * 5 ML VIAL ONE (15:59)
[2018-05-06] MEDS ORDERED: Ondansetron INJ* 2 MG/ML VIAL ONE (15:59)
[2018-05-06] MEDS ORDERED: fentaNYL* 50 MCG/ML 2 ML VIAL (100 MCG VIAL) ONE (16:00)
[2018-05-06] MEDS ORDERED: Midazolam* 1 MG/ML 5 ML VIAL (5 MG) ONE (16:00)
[2018-05-06] MEDS ORDERED: KETAMINE HCL* 50 MG/ML 10 ML VIAL ONE (17:03)
[2018-05-06] MEDS ORDERED: Lidocaine 1% INJ* 10 MG/ML 30 ML SDV ONE (17:15)
[2018-05-06] MEDS ORDERED: Iohexol 180 (CONTRAST) 10 ML SDV IV ONE (17:15)
[2018-05-06] MEDS ORDERED: Ondansetron INJ* 2 MG/ML VIAL IV PRN (18:07)
[2018-05-06] MEDS ORDERED: Naloxone* 0.4 MG/ML 1 ML VIAL IV PRN (18:07)
--- NOTE | 2018-05-06 18:40 | BRIEFOPN ---
Brief Operative Note - Surgery Procedures: Procedures Pre-OP Diagnoses: DVT, GI bleed Post-op Diagnosis: same Procedure: Insertion of IVC filter Surgeon: Marvin Asst: none Anethesia: local MAC EBL: minimal IVF: crystalloid Specimen: none Drains: Retrievable filter placed via L CFV
--- NOTE | 2018-05-07 05:02 | OP ---
CC: Dr. Franklyn Johnston; Dr. Olmedo; Dr. Siu * DATE OF OPERATION: 05/06/18 - ROOM #ICU-12 DATE OF : 44 SURGEON: Yves Wong MD FAREBOX REPAIRER: None. ANESTHESIOLOGIST: Dr. Ortiz. ANESTHESIA: Local MAC anesthesia. PRE-OP DIAGNOSES: Popliteal deep venous thrombus and recent gastrointestinal bleed. POST-OP DIAGNOSES: Popliteal deep venous thrombus and recent gastrointestinal bleed. OPERATIVE PROCEDURE: Insertion of inferior vena cava filter. ESTIMATED BLOOD LOSS: Minimal blood loss. FLUIDS: No crystalloid fluid given. Retrievable filter placed via the left common femoral vein. INDICATIONS: Discussed the procedure with Mr. Ashford, going over the risks, benefits, and alternatives of an IVC filter placement. I spoke to the hospitalist service regarding the insertion and they felt that was the best approach. I presented this to the patient, described the possible complications which included but not limited to bleeding, infection, migration, need for removal of the filter as well as blockage of the renal vessels, renal failure, and failure to prevent pulmonary embolus. The patient's questions were answered and he signed consent knowingly. DESCRIPTION OF PROCEDURE: The patient was brought to the operating room and placed on the operating table in the supine position. General sedation was given and bilateral groins were prepped and draped in standard surgical fashion. Time-out was performed. Injection of lidocaine along the right groin overlying the vasculature was performed. The right femoral vein was not able to be accessed and I placed an ultrasound probe. We could not fully appreciate vein at the site other than a small area behind the artery. Given the patient was on aspirin and Plavix, I felt better to go to the opposite side and try to make my way under the artery. The left groin had been prepped. Small window and the drape was made. The ultrasound probe was placed on the site, and we could see both artery and vein in the appropriate orientation. After injection of lidocaine, the vein was accessed. A guidewire was inserted with ease up into the inferior vena cava. Next, incision was made and the wound dilated. Given dilator was placed up for the retrievable IVC filter, once the dilator was pushed under fluoroscopy, we then placed it with the catheter. These were both placed under fluoroscopy at the appropriate position. We reviewed the lumbar body and I had made my decision I wanted to place it just at the area of L2 into L3. Once this was in the appropriate positioning, the dilator was removed. The device was snapped into place in appropriate orientation for femoral placement and it was pushed with the dilator at the appropriate position. Once it was in the position, the catheter itself was backed out and the filter opened in appropriate orientation. The wire was backed out through the filter with ease under fluoroscopy to assure it did not move. We did not show any tilting. All of the catheters and wires were removed under fluoroscopy and pressure held for 5 minutes at the groin. Bleeding was controlled and gauze and dressing was applied to the site. The patient tolerated the procedure well. [id number]/[facility] #: [id number] GALO
--- NOTE | 2018-05-07 07:46 | RAD ---
INDICATION: IVC filter placement COMPARISONS: None relevant TECHNIQUE: Fluoroscopy was provided for an IVC filter placement . Total fluoroscopy time is: 147.3 FINDINGS: Spot images demonstrate an IVC filter overlying the upper abdomen. IMPRESSION: FLUOROSCOPY WAS PROVIDED FOR AN IVC FILTER PLACEMENT CPT II Codes: G9500
--- NOTE | 2018-05-07 08:03 | PN ---
Subjective Date of Service: 05/07/18 Interval History: Mr. Ashford feels well today, has no complaints. His is at the bedside. One bowel movement was reported overnight, and he says it was nonbloody and not tarry or dark. He has no abdominal pain. Appetite is good. He has only been to the bedside commode. His thinks he is himself today. He is anxious to get home. Objective Active Medications: Acetaminophen (Tylenol Tab*) 650 mg PO Q4H PRN PRN Reason: FEVER/PAIN Last Admin: 05/04/18 19:10 Dose: 650 mg Aspirin (Aspirin Ec Tab*) 81 mg PO DAILY [facility] Last Admin: 05/06/18 09:12 Dose: 81 mg Clopidogrel Bisulfate (Plavix Tab*) 75 mg PO DAILY [facility] Last Admin: 05/06/18 09:12 Dose: 75 mg Ferrous Sulfate (Ferrous Sulfate Tab*) 325 mg PO BID [facility] Last Admin: 05/06/18 20:07 Dose: 325 mg Ceftriaxone Sodium 1 gm/ (Sodium Chloride) 50 mls @ 200 mls/hr IVPB Q24H [facility] Last Admin: 05/06/18 14:04 Dose: 200 mls/hr Ondansetron HCl (Zofran Inj*) 4 mg IV Q6H PRN PRN Reason: NAUSEA Last Admin: 05/04/18 20:16 Dose: 4 mg Rosuvastatin Calcium (Crestor (Nf)) 40 mg PO DAILY [facility] Last Admin: 05/06/18 09:12 Dose: 40 mg Vital Signs - 8 hr 05/07/18 05/07/18 05/07/18 00:00 00:30 00:55 Temperature 97.5 F Pulse Rate 80 73 Respiratory 17 13 Rate Blood Pressure 107/59 99/45 (mmHg) O2 Sat by Pulse 99 99 Oximetry 05/07/18 05/07/18 05/07/18 01:00 01:25 01:30 Temperature Pulse Rate 69 70 69 Respiratory 14 13 12 Rate Blood Pressure 87/38 86/38 96/45 (mmHg) O2 Sat by Pulse 97 97 100 Oximetry 05/07/18 05/07/18 05/07/18 02:00 02:30 03:00 Temperature Pulse Rate 71 70 68 Respiratory 12 18 9 Rate Blood Pressure 107/45 91/48 99/52 (mmHg) O2 Sat by Pulse 99 97 98 Oximetry 05/07/18 05/07/18 05/07/18 03:30 03:46 03:56 Temperature 97.2 F Pulse Rate 67 Respiratory 18 20 Rate Blood Pressure 113/52 (mmHg) O2 Sat by Pulse 99 Oximetry 05/07/18 05/07/18 05/07/18 04:00 04:30 05:00 Temperature Pulse Rate 67 66 66 Respiratory 15 14 12 Rate Blood Pressure 112/53 97/50 86/36 (mmHg) O2 Sat by Pulse 99 98 96 Oximetry 05/07/18 05/07/18 05/07/18 05:21 05:30 05:45 Temperature Pulse Rate 73 71 Respiratory 12 12 20 Rate Blood Pressure 98/46 97/44 (mmHg) O2 Sat by Pulse 98 98 Oximetry 05/07/18 05/07/18 05/07/18 06:00 06:23 06:30 Temperature Pulse Rate 66 77 69 Respiratory 6 14 14 Rate Blood Pressure 81/31 100/47 96/51 (mmHg) O2 Sat by Pulse 96 99 98 Oximetry 05/07/18 05/07/18 07:00 07:53 Temperature 97.8 F Pulse Rate 71 Respiratory 18 Rate Blood Pressure 107/56 (mmHg) O2 Sat by Pulse 98 Oximetry Oxygen Devices in Use Now: CPAP Appearance: alert, well appearing, comfortable Eyes: No Scleral Icterus Ears/Nose/Mouth/Throat: NL Teeth, Lips, Gums Neck: - - L IJ TLC Respiratory: Symmetrical Chest Expansion and Respiratory Effort, Clear to Auscultation Cardiovascular: NL Sounds; No Murmurs; No JVD, RRR Abdominal: - - + ascites, liver palpable at costal margin Lymphatic: No Cervical Adenopathy Extremities: - - RLE > LLE Skin: No Rash or Ulcers Neurological: Alert and Oriented x 3, - - no asterixis Result Diagrams: 05/06/18 06:24 05/06/18 06:24 Microbiology and Other Data: Microbiology 05/05/18 16:00 Gram Stain - Final Peritoneal Fluid Assess/Plan/Problems-Billing Assessment: Mr. 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 He has been transfused this admission and again treated without surgical or endoscopic intervention. A colonoscopy last admission showed pedunculated polyps that are thought to the source of the bleed. - Patient Problems (1) GIB (gastrointestinal bleeding) Current Visit: Yes Status: Acute Code(s): K92.2 - GASTROINTESTINAL HEMORRHAGE, UNSPECIFIED SNOMED Code(s): 13818193 Comment: Likely lower as evidenced by multiple pedunculated polyps on colonoscopy last admission Hgb 8.5 yesterday; recheck this morning--no reported melena for last 3 days Hemodynamically stable with good iv access S/p 5 U PRBCs this admission EGD was negative last admission Continue ceftriaxone for sbp ppx (2) DVT (deep venous thrombosis) Current Visit: Yes Status: Acute Code(s): I82.409 - ACUTE EMBOLISM AND THOMBOS UNSP DEEP VN UNSP LOWER EXTREMITY SNOMED Code(s): 299652966 Comment: RLE; s/p IVC filter yesterday I spoke with Mr. Ashford and his at length today about the IVC filter being removed DEONDRE (3) Anemia Current Visit: No Status: Acute Code(s): D64.9 - ANEMIA, UNSPECIFIED SNOMED Code(s): 945664223 Comment: Acute blood loss Recheck today. Continue PO iron with plans for outpatient IV iron with Dr. Guillen. (4) CAD (coronary artery disease) Current Visit: No Status: Chronic Code(s): I25.10 - ATHSCL HEART DISEASE OF [place] CORONARY ARTERY W/O ANG PCTRS SNOMED Code(s): 22236235 Comment: Continue ASA/Plavix If hgb stable this morning, will plan to restart metoprolol Continue statin (5) CKD (chronic kidney disease) Current Visit: No Status: Chronic Code(s): N18.9 - CHRONIC KIDNEY DISEASE, UNSPECIFIED SNOMED Code(s): 535020931 Comment: at baseline (6) Cryptogenic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 liver Current Visit: No Status: Chronic Code(s): K74.69 - OTHER CIRRHOSIS OF LIVER SNOMED Code(s): 71326108 Comment: Compensated S/p paracentesis earlier this admission If hgb stable today, will resume spironolactone/lasix (7) SALEEM (obstructive sleep apnea) Current Visit: No Status: Chronic Code(s): G47.33 - OBSTRUCTIVE SLEEP APNEA (ADULT) (PEDIATRIC) SNOMED Code(s): 46926750 Comment: continue cpap Status and Disposition: OOB today
[2018-05-07 08:37] LABS: ABS Basophils 0 10^3/ul (0-0.2); ABS Eosinophils 0.1 10^3/ul (0-0.6); ABS Lymphocytes 0.6 10^3/ul (1.0-4.8); ABS Monocytes 0.3 10^3/ul (0-0.8); ABS Neutrophils 2.8 10^3/ul (1.5-7.7); ABS Nucleated RBC 0 10^3/ul; Eosinophil % 2.8 % (0-6); Hematocrit 28 % (42-52); Hemoglobin 9.6 g/dl (14.0-18.0); Lymphocyte % 16.2 % (25-47); Mean Corpuscular HGB Conc 34 g/dl (31-36); Mean Corpuscular Hemoglobin 31 pg (27-31); Mean Corpuscular Volume 90 fL (80-94); Mean Platelet Volume 7.8 um3 (7.4-10.4); Nucleated Red Blood Cells % 0.1; Platelet Count 123 10^3/ul (150-450); Red Blood Count 3.12 10^6/ul (4.00-5.40); Red Cell Distribution Width 17 % (10.5-15)
[2018-05-07 08:42] LABS: INR 1.08 (0.77-1.02)
[2018-05-07 09:00] LABS: EGFR Non-African American 35.9 (>60)
[2018-05-07] MEDS: Ferrous Sulfate TAB* 325 MG PO SCH (09:16)
[2018-05-07] MEDS: Clopidogrel TAB* 75 MG PO SCH (09:16)
[2018-05-07] MEDS: CMC:Rosuvastatin (NF) 20 MG TAB PO SCH (09:16)
[2018-05-07] MEDS: Aspirin EC TAB* 81 MG TAB.EC PO SCH (09:16)
[2018-05-07] MEDS ORDERED: Potassium Chloride LIQUID* 20 MEQ PACKET PO ONE (10:23)
[2018-05-07] MEDS: cefTRIAXone(*) 1 GM in NS 0.9% 50 ML* 50 ML IVPB SCH (12:31)
[2018-05-07] MEDS ORDERED: Albumin Human 25%* 25 GM/100 ML BTL IV ONE (14:30)
[2018-05-07 16:45] VITALS: BP 99/41
[2018-05-07] MEDS ORDERED: Metoprolol Succinate XL TAB* 25 MG PO SCH (21:00)
--- NOTE | 2018-05-07 22:39 | DS ---
DISCHARGE SUMMARY: ADDENDUM: PRIMARY DISCHARGE DIAGNOSES: 3. Acute right lower extremity deep venous thrombosis, status post IVC filter. Mr. Ashford was found to have an acute DVT after he presented with right lower extremity swelling greater than left lower extremity and clearly had a contraindication to anticoagulation given his recurrent and active GI bleed. Dr. Wong performed an IVC filter insertion on 05/06/18 and he tolerated the procedure well. I have explained Mr. Ashford and his the importance that this filter comes out as soon as possible and have enforced this strongly. He needs to follow up with Dr. Guillen and I have requested that he follow up on this and arrange removal when appropriate with Dr. Wong. [id number]/[facility] #: [id number] MTDD
--- NOTE | 2018-05-07 23:03 | DS ---
TWO ADDENDUMS ARE NOW INCLUDED ON THIS REPORT CC: Dr. Johnston; Dr. Ruiz; Dr. Olmedo * DISCHARGE SUMMARY: DATE OF ADMISSION: 05/02/18. DATE OF DISCHARGE: 05/07/18. PRINCIPAL DISCHARGE DIAGNOSES: 1. Lower gastrointestinal bleed. 2. Acute blood loss anemia. 3. Large volume ascites. 4. Acute Right Lower extremity DVT SECONDARY DISCHARGE DIAGNOSES: 1. Cryptogenic cirrhosis. 2. Coronary artery disease, status post recent [id number] myocardial infarction with 6 drug-eluting stents. 3. Chronic kidney disease. 4. Monoclonal gammopathy of undetermined significance. 5. Obstructive sleep apnea. 6. Sick sinus syndrome. HOSPITAL COURSE BY PROBLEM: 1. Lower GI bleed. Mr. Ashford has an extensive GI history and was recently [place] [facility] [place] with a GI bleed, and at that time, was transferred to [place]. The etiology of his GI bleed at that time was found to be several pedunculated colonic polyps, however, polypectomy was not pursued due to the necessity of dual-antiplatelet therapy for a recent drug-eluting stent placement. On the last admission, he was transfused and stabilized without intervention. On this admission, GI revaluated him, and recommended continued conservative management with blood transfusions and hemodynamic support as needed given the high- risk nature of a polypectomy in the setting of recent NSTEMI and PCI. He remained hemodynamically stable and did not require pressor support, but responded well to transfusions and IV fluids. Since he had a recent colonoscopy and EGD on last admission, recommended avoiding repeat endoscopy or colonoscopy unless he became unstable. During the course of this admission, he received 5 units of packed red blood cells. He was on ceftriaxone for SBP prophylaxis in the setting of ascites and GI bleed, and he will be continued on SBP prophylaxis for 7 days. He is being scheduled for an outpatient capsule endoscopy to rule out alternative sources of bleeding. 2. Acute right lower extremity deep venous thrombosis, status post IVC filter. Mr. Ashford was found to have an acute DVT after he presented with right lower extremity swelling greater than left lower extremity and clearly had a contraindication to anticoagulation given his recurrent and active GI bleed. Dr. Wong performed an IVC filter insertion on 05/06/18 and he tolerated the procedure well. I have explained to Mr. Ashford and his the importance that this filter comes out as soon as possible and have enforced this strongly. He needs to follow up with Dr. Guillen, who I have updated on this, and I have requested that he follow up on this and arrange removal when appropriate with Dr. Wong. 3. Acute blood loss anemia. His presenting hemoglobin was 7.0. He received 5 units of packed red blood cells during this admission and his discharge hemoglobin on 05/07/18 is 9.6. He is being discharged on p.o. iron. 4. Ascites. He did undergo a large volume paracentesis on 05/05/[address] Azul. Both a diagnostic and therapeutic paracentesis were pursued, 7 L were removed and only 36 neutrophils were noted in the fluid. However, he was continued on ceftriaxone for SBP prophylaxis, and he will be discharged on SBP prophylaxis with once daily Bactrim. 5. Coronary artery disease with recent NSTEMI and 6 drug-eluting stents. He was continued on aspirin and Plavix through the duration of this GI bleed without any interruption and dual antiplatelet therapy. He was also continued on statin, and he had no chest pain during this admission. He is to follow up with Dr. Olmedo. 6. Cryptogenic cirrhosis, initially decompensated due to a GI bleed and ascites. However, at the time of discharge, his cirrhosis is compensated and he will follow up with Hepatology in [place]. I resumed his Lasix and spironolactone prior to discharge. 7. SALEEM. He was continued on CPAP. PHYSICAL EXAM AT THE TIME OF DISCHARGE: Vital Signs: Temperature 98.1, heart rate 84, respiratory rate 17, pulse ox 99% on room air, blood pressure 106/54. General: Alert, well-appearing man, in no acute distress. He is appropriate and oriented x3. HEENT: Sclerae anicteric. Pupils are reactive to light. Oral mucosa is moist. Chest: Regular rate and rhythm. No murmurs. PMI nondisplaced. Lungs: Clear bilaterally. Abdomen: Obese with the fluid waves. Liver is palpable at the right costal margin. No guarding or rigidity. Spleen is nonpalpable. Extremities: Trace lower extremity edema, right greater than left. No asterixis is noted. DISCHARGE INSTRUCTIONS: Mr. Ashford is instructed to return to the emergency department should he develop any further melena, hematochezia, abdominal pain, confusion, or any other new symptoms. I have instructed him and his to make a followup appointment with Dr. Johnston within the next week, and I have spoken with [facility] and they will call him to schedule the capsule endoscopy and also followup with Dr. Ruiz. Please do not hesitate to contact me with any questions or concerns about Mr. Ashford's admission and discharge. ADDENDUM NO.2: I spoke with the pharmacist, who also happens to be Mr. Ashford's nephew, after prescribing the Bactrim and the pharmacist was concerned about Bactrim in the setting of spironolactone use and given this patient's reported history of hyperkalemia. I expressed my concern with a fluoroquinolone in a 78-year-old man and he agrees. However, given his history and renal insufficiency, we decided to use ciprofloxacin for 7 days for primary SBP prophylaxis in the setting of a GI bleed. [id number]/[facility] #: [id number] [id number]/[facility] #: [id number] A2- [id number]/[facility] #: [id number] MTD
--- NOTE | 2018-05-08 00:43 | DS ---
DISCHARGE SUMMARY: ADDENDUM: I spoke with the pharmacist after prescribing the Bactrim and the pharmacist was concerned about Bactrim in the setting of spironolactone use and given this patient's reported history of hyperkalemia. I expressed my concern with a fluoroquinolone in a 78-year-old man and he agrees. However, given his history and renal insufficiency, we decided to use ciprofloxacin for 7 days for primary SBP prophylaxis in the setting of a GI bleed. The pharmacist also happens to be Low Montgomerymanoj's nephew and he agrees with this plan. [id number]/[facility] #: [id number] MTDD
== END 2018-05-07 17:00 | disposition home or self-care (01) | DRG 356 ==
LOC: ED 13:34 → MED 19:50 → ICU 05-05 14:38
PROVIDERS: ADMIT Pediatrics; ATTEND Internal Medicine
PROC: 0JH Subcutaneous Tissue and Fascia, Insertion (ICD-10-PCS; 2018-05-05)
PROC: 05HN33Z Insertion of Infusion Device into Left Internal Jugular Vein, Percutaneous Approach (ICD-10-PCS; 2018-05-05)
PROC: B544ZZA Ultrasonography of Left Jugular Veins, Guidance (ICD-10-PCS; 2018-05-05)
PROC: 0W9G3ZZ Drainage of Peritoneal Cavity, Percutaneous Approach (ICD-10-PCS; 2018-05-05)
PROC: 0W9G3ZX Drainage of Peritoneal Cavity, Percutaneous Approach, Diagnostic (ICD-10-PCS; 2018-05-05)
PROC: 06H03DZ Insertion of Intraluminal Device into Inferior Vena Cava, Percutaneous Approach (ICD-10-PCS; 2018-05-06)
PROC: 30233N1 Transfusion of Nonautologous Red Blood Cells into Peripheral Vein, Percutaneous Approach (ICD-10-PCS; principal; 2018-05-06 16:00)
DX: K92.2 Gastrointestinal hemorrhage, unspecified (principal); E43 Unspecified severe protein-calorie malnutrition; D62 Acute posthemorrhagic anemia; R18.8 Other ascites; K76.6 Portal hypertension; I82.431 Acute embolism and thrombosis of right popliteal vein; T82.855A Stenosis of coronary artery stent, initial encounter; K63.5 Polyp of colon; I12.9 Hypertensive chronic kidney disease with stage 1 through stage 4 chronic kidney disease, or unspecified chronic kidney disease; I25.10 Atherosclerotic heart disease of native coronary artery without angina pectoris; D47.2 Monoclonal gammopathy; G47.33 Obstructive sleep apnea (adult) (pediatric); C67.9 Malignant neoplasm of bladder, unspecified; K58.9 Irritable bowel syndrome, unspecified; Z96.1 Presence of intraocular lens; E78.5 Hyperlipidemia, unspecified; K21.9 Gastro-esophageal reflux disease without esophagitis; K74.69 Other cirrhosis of liver; I95.9 Hypotension, unspecified; N18.3 Chronic kidney disease, stage 3 (moderate); K59.00 Constipation, unspecified; Z68.30 Body mass index [BMI] 30.0-30.9, adult; Z99.81 Dependence on supplemental oxygen; Z98.42 Cataract extraction status, left eye; Z98.41 Cataract extraction status, right eye; Z82.49 Family history of ischemic heart disease and other diseases of the circulatory system; Y92.9 Unspecified place or not applicable; Z95.0 Presence of cardiac pacemaker; I25.2 Old myocardial infarction; Z95.5 Presence of coronary angioplasty implant and graft; Z90.49 Acquired absence of other specified parts of digestive tract; Z91.040 Latex allergy status; Z91.048 Other nonmedicinal substance allergy status; Z91.09 Other allergy status, other than to drugs and biological substances; Z80.52 Family history of malignant neoplasm of bladder; Z87.891 Personal history of nicotine dependence; Z72.89 Other problems related to lifestyle; Z85.51 Personal history of malignant neoplasm of bladder; D50.0 Iron deficiency anemia secondary to blood loss (chronic); R68.89 Other general symptoms and signs
CPT/HCPCS: 36415; 71045; 71046; 76000; 76705; 78582; 80048; 80053; 81003; 81015; 82042; 83615; 83735; 84100; 85014; 85018; 85025; 85027; 85610; 86850; 86900; 86901; 86922; 87040; 87070; 87086; 87205; 89051; 93005; 94660; 99284; A9270-GY; A9540; A9558; C1880; G8978-GP-CI; G8979-GP-CI; G8980-GP-CI; J0696; J1642; J2250; J2405; J2543; J2704; J3010; J3370; J3475; P9040; P9047

== ENCOUNTER 2018-06-03 19:01 | Inpatient (IN) | payer MEDICARE ==
--- OUTSIDE RECORDS SUMMARY | 2018-06-03 19:24 | XMS REPORT ---
:1940 External Reference #:[id number] Author Organization [address] Address [address] [place] [address] [place] [address] Phone [phone] Care Team Providers Name Role Phone Franklyn Johnston MD Primary Care Physician Unavailable Payers Type Date Identification Numbers Payment Subscriber Provider Health Maintenance Effective: Policy Number: Medicare Rolly Ashford [facility] ([facility]) 07/31/2016 [id number] Ppo Group Number: [id number] [address] [address] PayID: [id number] SWATI Marcus [id number] Health Maintenance Effective: Policy Number: Medicare Rolly Ugalde ([facility]) 07/31/2013 [id number] [facility] Expires: 07/30/2014 Group Number: [id number] [address] [address] Group Name: Expires 07/30/14 SWATI Marcus [id number] PayID: [id number] Medigap Part B Effective: 01/28/2010 Policy Number: [facility] Diya Ashford [id number] Expires: 07/30/2013 PayID: [id number] [address] [address] SWATI Marcus [id number] Medigap Part B Effective: 12/29/2006 Policy Number: Medicare Diya Jj Ulisesstefano [id number] Expires: 07/30/2013 PayID: [id number] [address] [place] [address] Problems Date Description Provider Status Onset: 07/09/2013 Sprain of foot Bryan Dee M.D. Active Onset: 06/30/2014 Obstructive sleep apnea syndrome Miriam Anguiano MD Active Onset: 03/01/2016 Gastroesophageal reflux disease Miriam Anguiano MD Active Onset: 03/01/2016 Morbid obesity Miriam Anguiano MD Active Onset: 10/03/2017 Cardiac pacemaker in situ Angelic Olmedo M.D. 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 Metoprolol 09/29/ Active Tablets 25mg 90tab /2 by Angleic Tartrate 2018 s mouth twice [place], a day M.D. Nitroglycerin / Active Tablets [...] Isosorbide 02/27/ Hx Tablets 30mg 30tab Take 08/01 I20.9 Yves Dsouza Mononitrate ER 2018 - ER 24HR s tablet by DO Rajesh 04/06/ mouth every [facility]2017 Atorvastatin 09/29/ Hx Tablets 40mg 90tab 1 by mouth Angelic Calcium 2018 - s every day [place], 01/10/ M.D. 2017 Brilinta 09/29/ Hx Tablets 90mg 180ta 1 tab by Angelic 2018 - bs mouth twice Shara, 11/06/ a day M.D. 2017 Hydrocodone 09/16/ Hx Tablets 5-300mg 14tab 1 tab by Jamilah Bitartrate/Aceta 2017 s mouth every B. 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 2017 Losartan / Hx Unknown Potassium 0000 - 2013 Celebrex / Hx 200 daily Unknown 0000 - 2015 Aspirin Ec / Hx 81mg daily Unknown Lo-Dose 0000 - 2017 Losartan /00/ Hx Tablets 100mg 1 by mouth Unknown Potassium 0000 every day Lasix 00/ Hx Tablets 40mg 1 by mouth Unknown 0000 - twice per 2017 Aldactone 00/ Hx Tablets 50mg 1 by mouth Unknown 0000 - daily 2016 Midodrine HCL 00/ Hx Tablets 5mg 1 po tid Sylvia 0000 - MD Franklyn 2016 Spironolactone 00/ Hx Tablets 50mg 1 tablet po Unknown 0000 - daily ( medication 2018 change since [address] Ward) Plavix / Hx Tablets 75mg 90tab 1 by mouth I25.119 Angelic 0000 - s every day Shara 12/07/ MPolly 2018 Prednisone 00/ Hx Tablets Unknown 0000 - 2017 Medications [...] CPT Code Status Date Vaccine Lot # [id number] Given 05/14/2014 Influenza Virus 3Yrs & Over [...] Test Date Test Result H/L Range Note Hemoglobin/Hematocrit 05/02/2018 Hemoglobin 7.3 g/dL Low 14.0-18.0 Hematocrit 22 % Low 42-52 Laboratory test finding 04/20/2018 Surgical Interface Order SEE RESULT BELOW 1 Lipid Profile 03/12/2018 Triglycerides 77 mg/dL 2 (Trig/Chol/HDL) Cholesterol 142 mg/dL 3 HDL Cholesterol 51.2 mg/dL 4 LDL Cholesterol 75 mg/dL 5 Laboratory test finding 01/05/2018 LDL Cholesterol Direct 111 mg/dL 6 Laboratory test finding 12/29/2017 Creatine Kinase(CK) 16 [...] Egfr Non- 31.6 >60 Egfr 40.7 >60 7 Stool Occult Blood Diag 10/13/2017 Stool Occult Blood, SEE RESULT BELOW 8 Diag Basic Metabolic Panel 10/04/2017 Sodium 132 mmol/L Low 133-145 Potassium 4.6 mmol/L 3.5-5.0 Chloride 104 mmol/L 101-111 Co2 Carbon Dioxide 23 mmol/L 22-32 Anion Gap 5 mmol/L 2-11 Glucose 124 mg/dL High 70-100 Blood Urea Nitrogen 40 mg/dL High 6-24 Creatinine 2.01 mg/dL High 0.67-1.17 BUN/Creatinine Ratio 19.9 8-20 Calcium 7.8 mg/dL Low 8.6-10.3 Egfr Non- 32.5 >60 Egfr 41.9 >60 9 CBC Auto Diff 10/04/2017 White Blood Count [...] Egfr Non- 32.7 >60 Egfr 42.1 >60 10 Basic Metabolic Panel 09/26/2017 Sodium 132 mmol/L Low 133-145 Potassium 5.5 mmol/L High 3.5-5.0 Chloride 103 mmol/L 101-111 Co2 Carbon Dioxide 25 mmol/L 22-32 Anion Gap 4 mmol/L 2-11 Glucose 183 mg/dL High 70-100 Blood Urea Nitrogen 36 mg/dL High 6-24 Creatinine 1.86 mg/dL High 0.67-1.17 BUN/Creatinine Ratio 19.4 8-20 Calcium 8.3 mg/dL Low 8.6-10.3 Egfr Non- 35.6 >60 Egfr 45.8 >60 11 Laboratory test finding 09/26/2017 B-Type Natriuretic Peptide BNP 54 pg/mL 12 Troponin-I (TnI) 0.08 ng/mL High <0.04 13 HIV 1/2 Ag & AB Eval 07/12/2017 HIV-1/-2 Screen, S Negative Negative 14 Laboratory test finding 07/12/2017 Miscellaneous Test See Comment 15 Hepatitis E IgM Antibody Negative Negative 16 Laboratory test finding 07/12/2017 Hepatitis E IgM Antibody Negative Negative 17 Laboratory test finding 07/12/2017 Hepatitis E IgM Antibody Negative Negative 18 Laboratory test finding 07/12/2017 Hepatitis E IgM Antibody Negative Negative 19 Hepatitis E IgG Antibody Negative Negative 20 Laboratory test 07/12/2017 Hepatitis E IgM Negative [...] Negative Negative 32 finding Antibody Laboratory test 07/12/2017 Hepatitis E IgM Negative Negative 33 finding Antibody Laboratory test 12/02/2016 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 SEE 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 34 finding Laboratory test 12/02/2016 Surgical Pathology SEE RESULT BELOW 35 finding Leukemia/Lymphoma 12/02/2016 Path Interpretation 2-8 TNP Flow Marker Path Interpret > 16 Marker TNP Path Interpret 9-15 Marker (SEE NOTE) 36 B-Cell Lymphoma Fish 12/02/2016 FBLP Specimen Bone Marrow FBLP Source Right PIC FBLP Reason for Referral See Comment 37 FBLP Method See Comment 38 FBLP Result Summary Normal FBLP Result See Comment 39 FBLP Result Table See Comment 40 FBLP Interpretation See Comment 41 FBLP Additional Information See Comment 42 FBLP Released By See Comment 43 FBLP Disclaimer See Comment 44 Plasma Cell Profliferative 12/02/2016 Plasma Cell Dis Res Abnormal Disorder Summary Plasma Cell Prolif Specimen Bone Marrow Plasma Cell Prolif Dis Source Right PIC Plasma Cell Referral Reason See Comment 45 Plasma Cell Prolif Dis Method See Comment 46 Plasma Cell Dis Result Table See Comment 47 Plasma Cell Prolif Dis Results See Comment 48 Plasma Cell Dis Interpretation See Comment 49 Plasma Cell Dis Add Info See Comment 50 Plasma Cell Dis Disclaimer See Comment 51 Plasma Cell Dis Released By See Comment 52 Laboratory test 11/04/2016 Surgical Interface SEE RESULT BELOW 53 finding Order CBC Auto Diff 11/04/2016 White [...] Egfr Non- 49.5 >60 Egfr 63.7 >60 54 Laboratory test finding 11/04/2016 Ach Receptor Binding 0.00 nmol/L <= 0.02 55 AB Laboratory test finding 09/27/2016 Surgical Pathology SEE RESULT BELOW 56 Laboratory test finding 09/27/2016 Cytology 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 SEE RESULT BELOW 57 Body Fluid C&S 05/28/2014 Body Fluid Cult (SEE NOTE) 58 Gram Stain Laboratory test finding 05/28/2014 Fluid Crystals None Seen 59 1 SEE RESULT BELOW Name: ULISESSTEFANODIYA : [address]: Mayrjo Arriaga MD Acct: [id number] Unit: [id number] AGE: 78 Location: ICU [id number] Re04/20/18 Dis: 04/22/18 SEX: M Status: DIS IN SPEC: [id number] BRAD: 04/20/18-150 [facility] [address]: Cristina Harmon MD REQ: [id number] RECD: 04/20/18 STATUS: TUNDE SALINAS DR: Luis Manuel Edwards MD _ ORDERED: LEVEL 4 FINAL DIAGNOSIS Colon, ascending, biopsy: -- Inflammatory (retention) polyp. -- No adenomatous changes identified. POST-OPERATIVE DIAGNOSIS Colonoscopy: pedunculated polyp approximately 30 cm (2-3 cm); (2-3 cm) pedunculated polyp approximately 50 cm; 2-3 pedunculated polyps in ascending colon (2-4 cm) GROSS DESCRIPTION The specimen is received in formalin labeled, Biopsy Ascending Colon Polyp ( Large Polyp), and consists of a 0.2 x 0.1 x 0.1 cm patten irregular soft tissue fragment which is submitted entirely in one cassette. Signed by and Reported on: Favian Templeton MD 1658 END OF REPORT DEPARTMENT OF PATHOLOGY, [address] [place] [address] Favian Templeton M.D. Director [facility] # [id number] 2 Desirable: <150 Borderline High: 150-199 High: 200-499 Very High: >500 3 Desirable: <200 Borderline High: 200-239 High: >239 4 Low: <40 Desirable: 40-60 High: >60 5 Desirable: <100 Near Optimal: 100-129 Borderline High: 130-159 High: 160-189 Very High: >189 6 Desirable: <100 Near Optimal: 100-129 Borderline High: 130-159 High: 160-189 Very High: >189 7 Because ethnic data is not always readily [...] 15-29 5 Kidney failure <15 (or dialysis) 8 SEE RESULT BELOW Name: DIYA ASHFORD : [address]: Angelic Olmedo MD Acct: [id number] Unit: [id number] AGE: 77 Location: [facility] Re10/13/17 SEX: M Status: REG REF SPEC: [id number] BRAD: 10/13/17-799 [facility] [address]: Angelic Olmedo MD REQ: [id number] RECD: 10/13/17-1313 STATUS: JOVANI SALINAS DR: Franklyn Johnston MD _ SOURCE: STOOL SPDESC: ORDERED: Occult Bl, Diag Procedure Result Reported Site Stool Occult Blood (1) Final 10/13/17- 1415 ML Stool Occult Blood Positive Collection Date (1) 10/13/17 * ML - Main Lab . END OF REPORT DEPARTMENT OF PATHOLOGY, [address] [place] [address] Favian Templeton M.D. Director [facility] # [id number] 9 Because ethnic data is not always [...] 5 Kidney failure <15 (or dialysis) 11 Because ethnic data is not always readily [...] 15-29 5 Kidney failure <15 (or dialysis) 12 >100 to <200 pg/mL: likely compensated congestive heart failure (CHF) 200 to 400 pg/mL: likely moderate CHF >400 pg/mL: likely moderate to severe CHF [address] Moreno by [id number] at 1734 on 09/26/17. Results read back accurately. 14 Negative result does not rule out HIV infection. If acute HIV infection is suspected in a high-risk individual, submit plasma specimen for HIV-1 RNA quantification test (HIVDQ) and/or HIV-2 DNA/RNA test (FHV2Q). Test Performed by: [facility] [place] [address] [place] [address] 15 Test Result Flag Unit RefValue Strongyloides Ab, IgG, S Negative Negative No detectable levels of IgG antibodies to Strongyloides. Repeat testing in 1-2 weeks if clinically indicated. Test Performed by: [address] [address] 16 If clinical suspicion persists, submit new specimen for retesting in 1 to 2 weeks. Test Performed by: [address] [address] 17 If clinical suspicion persists, submit new specimen for retesting in 1 to 2 weeks. Test Performed by: [address] [address] 18 If clinical suspicion persists, submit new specimen for retesting in 1 to 2 weeks. Test Performed by: [address] [address] 19 If clinical suspicion persists, submit new specimen for retesting in 1 to 2 weeks. Test Performed by: [address] [address] 20 Test Performed by: [address] [address] 21 If clinical suspicion persists, submit new specimen for retesting in 1 to 2 weeks. Test Performed by: [address] [address] 22 If clinical suspicion persists, submit new specimen for retesting in 1 to 2 weeks. Test Performed by: [address] [address] 23 If clinical suspicion persists, submit new specimen for retesting in 1 to 2 weeks. Test Performed by: [address] [address] 24 If clinical suspicion persists, submit new specimen for retesting in 1 to 2 weeks. Test Performed by: [address] [address] 25 If clinical suspicion persists, submit new specimen for retesting in 1 to 2 weeks. Test Performed by: [address] [address] 26 If clinical suspicion persists, submit new specimen for retesting in 1 to 2 weeks. Test Performed by: [address] [address] 27 If clinical suspicion persists, submit new specimen for retesting in 1 to 2 weeks. Test Performed by: [address] [address] 28 If clinical suspicion persists, submit new specimen for retesting in 1 to 2 weeks. Test Performed by: [facility] [place] [address] 29 If clinical suspicion persists, submit new specimen for retesting in 1 to 2 weeks. Test Performed by: [facility] [place] [address] 30 If clinical suspicion persists, submit new specimen for retesting in 1 to 2 weeks. Test Performed by: [facility] [place] [address] 31 If clinical suspicion persists, submit new specimen for retesting in 1 to 2 weeks. Test Performed by: [facility] [place] [address] 32 If clinical suspicion persists, submit new specimen for retesting in 1 to 2 weeks. Test Performed by: [facility] [place] [address] 33 If clinical suspicion persists, submit new specimen for retesting in 1 to 2 weeks. Test Performed by: [place] [address] 34 SEE RESULT BELOW Name: DIYA ASHFORD : [address]: Timmy Montoya MD Acct: [id number] Unit: [id number] AGE: 76 Location: Re12/02/16 SEX: M Status: REG REF SPEC: [id number] BRAD: 12/02/16-1415 [facility] [address]: Timmy Montoya MD REQ: [id number] RECD: 12/02/16-8569 STATUS: TUNDE SALINAS DR: Isaac Salazar MD [...] Signed (signature on file) Favian Templeton MD 1356 END OF REPORT * ML=Testing performed at Main Lab DEPARTMENT OF PATHOLOGY, [address] [place] [address] Favian Templeton M.D. Director [facility] # [id number] 35 SEE RESULT BELOW Name: DIYA ASHFORD : [address]: Timmy Montoya MD Acct: [id number] Unit: [id number] AGE: 76 Location: SP Re12/02/16 SEX: M Status: REG REF SPEC: [id number] BRAD: 12/02/16-[address]: Timmy Montoya MD REQ: [id number] RECD: 12/02/16 STATUS: TUNDE SALINAS DR: Ari Salazar MD _ ORDERED: Decal, LEVEL 4/2, IMMUNO-FIRST, IMMUNO-ADDL/2, SPEC ST NON-ORG/2 Plasma cell disease has been performed at [facility], [place], [place]. The testing reveals: Specimen: Bone marrow. [...] pathologic correlation is recommended. Test Performed by: [place] [address] CONTINUED ON NEXT PAGE * ML=Testing performed at Main Lab DEPARTMENT OF PATHOLOGY, [address] [place] [address] Favian Templeton M.D. Director [facility] # [id number] RUN DATE: 12/14/16 [facility] LAB LIVE PAGE 2 Patient: DIYA ASHFORD [id number] (Continued) ADDENDUM (Continued) Addendum Signed (signature on file) Sunita Landa MD 1043 B-cell lymphoma has been performed at [facility], [place], [place]. The testing reveals: Specimen: Bone marrow. Method: Locus and probes [Strategy;#Nuclei;Class] 3q27(3'BCL6,5'BCL6) [BAP;200;ASR] 8q24(5'MYC,3'MYC) [BAP;200;ASR] 11q13(CCND1-XT),14q32(IGH-XT) [DFISH;500;ASR] 17p13(TP53),17CEN(D17Z1) [COPY#;200;ASR] 18q21(5'MALT1,3'MALT1) [BAP;200;ASR] 18q21(5'BCL2,3'BCL2) [BAP;200;ASR] Probe strategies include: DFISH=dual color, double fusion; BAP=break-apart probe; COPY#=region gain and loss. Result: Interphase FISH is normal for all loci studied. Result Summary: Normal Result Table: Abnormality Name Result %Abn Cutoff (%) 8q24.1(MYC sep) Normal <6.5% -17p13.1(TP53x1,F45Q6l3) Normal <9.5% -17(TP53,D17Z1)x1 Normal <5.5% 18q21(MALT1 sep) [...] at Main Lab DEPARTMENT OF PATHOLOGY, [address] [place] [address] Favian Templeton M.D. Director [facility] # [id number] RUN DATE: 12/14/16 [facility] LAB LIVE PAGE 3 Patient: DIYA ASHFORD [id number] (Continued) ADDENDUM (Continued) Additional cytogenetic studies are reported separately. Test Performed by: [facility] - [facility] [address] [facility], [place] [address] Addendum Signed (signature on file) Favian Templeton [...] at Main Lab DEPARTMENT OF PATHOLOGY, [address] [place] [address] Favian Templeton M.D. Director [facility] # [id number] RUN DATE: 12/14/16 [facility] LAB LIVE PAGE 4 Patient: DIYA ASHFORD [id number] (Continued) SPECIAL STUDIES (Continued) SPECIAL STUDIES Flow cytometry has been performed at [facility], [place], [place]. The testing reveals: FINAL DIAGNOSIS: Specimen Source: Right posterior iliac crest bone marrow Flow cytometry immunophenotypic analysis: Interpretative data: Lambda light chain restricted, CD19 positive, CD10 negative B-cell population detected (4% of WBCs, 19% of gated lymphocytes). Morland light chain restricted plasma cells, (less than [...] Electronically signed by: Favian Templeton MD 12/05/16 1469 Technical component performed by: [facility] - [address] [address] Drum Stock Clerk: Jamie Porter II, MD, PhD. CONTINUED ON NEXT PAGE * ML=Testing performed at Main Lab DEPARTMENT OF PATHOLOGY, [address] [place] [address] Favian Templeton M.D. Director [facility] # [id number] RUN DATE: 12/14/16 [facility] LAB LIVE PAGE 5 Patient: DIYA ASHFORD [id number] (Continued) PRE-OPERATIVE DIAGNOSIS (Continued) PRE-OPERATIVE DIAGNOSIS D47.2 [...] at Main Lab DEPARTMENT OF PATHOLOGY, [address] [place] [address] Favian Templeton M.D. Director [facility] # [id number] RUN DATE: 12/14/16 [facility] LAB LIVE PAGE 6 Patient: DIYA ASHFORD Анна [id number] (Continued) MICROSCOPIC DESCRIPTION (Continued) Signed (signature on file) Favian Templeton MD 1547 END OF REPORT * ML=Testing performed at Main Lab DEPARTMENT OF PATHOLOGY, [address] [place] [address] Favian Templeton M.D. Director [facility] # [id number] 36 FINAL DIAGNOSIS: Specimen Source: Right posterior iliac crest bone marrow Flow cytometry immunophenotypic analysis: Interpretative data: Lambda light chain restricted, CD19 positive, CD10 negative B-cell population detected (4% of WBCs, 19% of gated lymphocytes). Morland light chain restricted plasma cells, (less than [...] MD 12/05/16 1452 Technical component performed by: [place] [address] Drum Stock Clerk: Jamie Porter II, MD, PhD. 37 RESULT: Monoclonal gammopathy, Hyperlipidemia, unspecified 38 Locus and probes [Strategy;#Nuclei;Class] 3q27(3'BCL6,5'BCL6) [BAP;200;ASR] 8q24(5'MYC,3'MYC) [BAP;200;ASR] 11q13(CCND1-XT),14q32(IGH-XT) [DFISH;500;ASR] 17p13(TP53),17CEN(D17Z1) [COPY#;200;ASR] 18q21(5'MALT1,3'MALT1) [BAP;200;ASR] 18q21(5'BCL2,3'BCL2) [BAP;200;ASR] Probe strategies include: DFISH=dual color, double fusion; BAP=break-apart probe; COPY#=region gain and loss. 39 RESULT: Interphase FISH is normal for all loci studied. 40 Abnormality Name Result %Abn Cutoff (%) 8q24.1(MYC sep) Normal <6.5% -17p13.1(TP53x1,Y96E9q5) Normal <9.5% -17(TP53,D17Z1)x1 Normal <5.5% 18q21(MALT1 sep) Normal <3.5% 18q21(BCL2 sep) Normal <5.5% 3q27(BCL6 sep) Normal <3.5% t(11;14) CCND1-XT/IGH-XT fusion Normal <0.6% 41 This result is within normal limits for the B-cell lymphoma FISH panel. A normal FISH result does not exclude the presence of lymphoma in the bone marrow. Clinical and pathologic correlation is suggested. Additional cytogenetic studies are reported separately. 42 Previous Studies DATE SPECIMEN RESULT 01/26/2015 Marrow Plasma cell FISH abnormal 43 RESULT: Franklyn Pete M.D., Ph.D. Test Performed by: [address] [address] 44 Applicable to Analyte Specific Reagent (ASR) and Laboratory Developed Tests (LDT). This test was developed and its performance characteristics determined by [facility] in a manner consistent with CLIA requirements. It has not been cleared or approved by the U.S. Food and Drug Administration. This FISH test does not rule out other chromosome abnormalities. 45 RESULT: Monoclonal gammopathy, Hyperlipidemia, unspecified 46 Locus and probes [Strategy;#Nuclei;Class] 1p36.3(TP73),1q22 [COPY#;50;LDT] 8q24(5'MYC,3'MYC) [BAP;50;ASR] 11q13(CCND1-XT),14q32(IGH-XT) [DFISH;50;ASR] Probe strategies include: DFISH=dual color, double fusion; BAP=break-apart probe; COPY#=region gain and loss. 47 Abnormality Name Result # Abn Total Cells t(11;14) CCND1-XT/IGH-XT Abnormal 6 9 fusion +11(CCND1-XTx3) Normal 0 9 48 RESULT: nuc simon(CCND1-XT,IGH-XT)x3(CCND1-XT con IGH-XTx2) 49 The result is abnormal and indicates a [...] recommended. Additional cytogenetic studies are reported separately. 50 Previous Studies DATE SPECIMEN RESULT 01/26/2015 Marrow Plasma cell FISH abnormal 51 Applicable to Analyte Specific Reagent (ASR) and Laboratory Developed Tests (LDT). This test was developed and its performance characteristics determined by [facility] in a manner consistent with CLIA requirements. It has not been cleared or approved by the U.S. Food and Drug Administration. This FISH test does not rule out other chromosome abnormalities. 52 RESULT: Della Bell D.O. Test Performed by: [address] [address] 53 SEE RESULT BELOW Name: DIYA ASHFORD : [address]: Ari Salazar MD Acct: [id number] Unit: [id number] AGE: 76 Location: [facility] Re11/04/16 SEX: M Status: REG REF SPEC: [id number] BRAD: 11/04/16-1250 [facility] [address]: Isaac Ruiz MD REQ: [id number] RECD: 11/04/16-1341 STATUS: TUNDE SALINAS DR: Franklyn [...] at Main Lab DEPARTMENT OF PATHOLOGY, [address] [place] [address] Favian Templeton M.D. Director [facility] # [id number] 54 Because ethnic data is not always readily [...] 15-29 5 Kidney failure <15 (or dialysis) 55 ADDITIONAL INFORMATION This test was developed and its performance characteristics determined by [facility] in a manner consistent with CLIA requirements. This test has not been cleared or approved by the U.S. Food and Drug Administration. Test Performed by: [address] [address] 56 SEE RESULT BELOW Name: DIYA ASHFORD : [address]: Gonzalo Nunez MD Acct: [id number] Unit: [id number] AGE: 76 Location: [place] [id number] Re09/27/16 Dis: 09/28/16 SEX: M Status: DIS Kiel SPEC: [id number] BRAD: 09/27/16- [facility] DR: Gonzalo Nunez MD REQ: [id number] RECD: 09/27/16 STATUS: SOUT _ ORDERED: TRICHROME [...] and the wall thickness averages 0.1 cm. Patient Financial Representative sections, one cassette. 2. The specimen is received in formalin labeled, Liver Biopsy, and consists of a 1.5 x 0.1 CONTINUED ON NEXT PAGE * ML=Testing performed at Main Lab DEPARTMENT OF PATHOLOGY, [address] [place] [address] Favian Templeton M.D. Director [facility] # [id number] RUN DATE: 09/29/16 [facility] LAB LIVE PAGE 2 Patient: DIYA ASHFORD [id number] (Continued) GROSS DESCRIPTION (Continued) GROSS DESCRIPTION (Continued) cm patten soft tissue core admixed with scant red-brown blood clot. Entirely submitted, one cassette. Signed (signature on file) Favian Templeton MD 1647 END OF REPORT * ML=Testing performed at Main Lab DEPARTMENT OF PATHOLOGY, [address] [place] [address] Favian Templeton M.D. Director [facility] # [id number] 57 SEE RESULT BELOW Name: DIYA ASHFORD : [address]: Gonzalo Nunez MD Acct: [id number] Unit: [id number] AGE: 76 Location: [place] [address] Re09/27/16 SEX: M Status: ADM Kiel SPEC: [id number] BRAD: 09/27/16-1639 [facility] DR: Gonzalo Nunez MD REQ: [id number] RECD: 09/27/16 STATUS: SOUT _ ORDERED: THIN PREP NON G FINAL DIAGNOSIS Peritoneal fluid: -- Negative for malignant cells. -- Mixed lymphoid elements, macrophages and scattered mesothelial elements only. 1. PERITONEAL - PERITONEAL FLUID GROSS DESCRIPTION 35 mls of cloudy yellow/green fluid. Signed (signature on file) Favian Templeton MD 1327 END OF REPORT * ML=Testing performed at Main Lab DEPARTMENT OF PATHOLOGY, [facility] [address] [place], [place] [address] Favian Templeton M.D. Director [facility] # [id number] RUN DATE: 06/01/14 [facility] LAB LIVE PAGE 1 RUN TIME: 08 [facility] [employer] [place], [place] [address] Specimen Inquiry Name: DIYA ASHFORD Анна : [address]: Dominic Jensen MD Acct: [id number] Unit: [id number] AGE: 74 Location: [facility] Re05/28/14 SEX: M Status: REG REF SPEC: [id number] BRAD: 05/28/14 [facility] DR: Dominic Jensen MD REQ: [id number] RECD: 05/28/14 STATUS: COMP _ SOURCE: JOINT FLUI SPDESC:KNEE LEFT ORDERED: BF Cult/GS Procedure Result Verified Site Body Fluid Gram Stain Final 05/28/14- 1055 ML 4+ Neutrophils No Organisms Seen BY CENTRIFUGED SMEAR Body Fluid Culture Final 06/01/14- 0815 ML No Growth Day 4 END OF REPORT * ML=Testing performed at Main Lab DEPARTMENT OF PATHOLOGY, [address] [place] [address] Favian Templeton M.D. Director [facility] # [id number] Synovial (Joint) Fluid Procedures Date CPT Code Description Status 04/06/2018 89033 EKG Tracing & Interpretation Completed 03/14/2018 24824 Treadmill Interp/Report Only Completed 03/14/2018 21914 Stress Test Supervsn W/Out I/R Completed 03/08/2018 63598 EKG Tracing & Interpretation Completed 02/27/2018 61464 EKG Tracing & Interpretation Completed 02/22/2018 72488 Pace Maker Eval W/Iterative Adjment Dual Lead Completed 02/22/2018 23691 Pace Maker Eval W/Iterative Adjment Dual Lead Completed 02/22/2018 64278 EKG Tracing & Interpretation Completed 12/07/2017 56075 EKG Tracing & Interpretation Completed 11/30/2017 51978 Stress Test Supervsn W/Out I/R Completed 11/30/2017 23169 Treadmill Interp/Report Only Completed 10/10/2017 04407 Stress Test Completed 10/10/2017 37611 Myocardial Perfusion Imaging Tomographic (Spect) Completed Multiple Studies 10/03/2017 03760 EKG Tracing & Interpretation Completed 09/29/2017 51785 ECHO Transthorasic Realtime 2D W Doppler & Color Flow Completed Hosp 09/29/2017 66298 EKG, Interpretation Only Completed 09/28/2017 25544 Cath PLMT&NJX L Ventriculog Img S&I Completed 09/28/2017 03071 Interrogation Device Eval In Person W/DR Completed Analysis,Single,Dual,Mul 09/28/2017 33357 EKG, Interpretation Only Completed 09/28/2017 64420 Revascularization Acute Total/Subtotal Occlusion Completed 09/27/2017 43696 EKG, Interpretation Only Completed 09/25/2017 92061 EKG, Interpretation Only Completed 09/25/2017 03705 Removal With Replacement Dual Lead System Pulse Completed Generator 09/24/2017 02043 Interrogation Device Eval In Person W/DR Completed Analysis,Single,Dual,Mul 09/22/2017 60232 ECHO Transthorasic Realtime 2D W Doppler & Color Flow Completed Hosp 09/22/2017 74895 EKG, Interpretation Only Completed 09/22/2017 07596 EKG, Interpretation Only Completed 02/23/2017 90875 ECHO Transthorasic Realtime 2D W Doppler & Color Flow Completed Hosp 11/04/2016 79399 Catheter Placement Venous Second Order Branch Completed 11/04/2016 01516 Transcatheter Biopsy Completed 11/04/2016 24986 Venography Liver W/Hemodynamic Evaluation Completed 11/04/2016 64249 Transcatheter Biopsy Radiology Completed 11/04/2016 00517 Ultrasound Guidance For Vascular Access Completed 09/27/2016 51291 Laparoscopy Cholecystectomy Completed 09/27/2016 45341 Laparoscopy Cholecystectomy Completed 09/27/2016 53236 Biopsy Liver W/Other Major Procedure Completed 05/28/2014 14357 Rad Exam; Knee, Ap&L Completed 05/28/2014 01803 Rad Exam; Knee, Ap&L Completed 05/28/2014 76025 Rad Exam; Pelvis Completed 02/03/2012 21031 Rad Exam; Foot Comp Completed Encounters Type Date Location Provider CPT E/M Dx Office Visit 04/22/2018 [facility]KATIE Alcantar 78982 K92.2 7:54a Hospitalists N18.9 G47.33 R18.8 Office Visit 04/21/2018 7:52a [facility]KATIE Alcantar 34363 K92.2 Hospitalists D64.9 N18.9 G47.33 Office Visit 04/20/2018 7:51a [facility]KATIE Alcantar 93412 K92.2 Hospitalists D64.9 R18.8 N18.9 E78.5 G47.33 Office Visit 04/19/2018 7:50a [facility]KATIE Alcantar 92497 K92.1 Hospitalists N18.9 D47.2 I25.10 Office Visit 04/06/2018 4:20p [facility] Angelic Olmedo M.D. 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 92331 I25.119 Metallurgy Teacher Z01.810 Z95.0 K74.60 Office Visit 03/08/2018 1:30p [facility] Angelic Olmedo M.D. 63946 I25.119 [facility] Z95.0 K76.6 E78.5 Office Visit 02/27/2018 10:20a [facility] [place] [address] I20.9 [facility] FACC Office Visit 02/05/2018 10:45a [facility] [place], [address] K40.90 Metallurgy Teacher FACS K74.60 R18.8 Office Visit 12/21/2017 2:45p [facility] Nikunj Bonds, 22064 M16.0 Andre MEZA M25.562 M25.561 Office Visit 12/07/2017 1:45p [facility] Angelic Olmedo M.D. 58984 I25.119 [facility] D64.9 N18.3 Z95.0 K74.60 Office Visit 10/19/2017 2:00p [facility], Cece Barajas, 68155 K92.2 Hospitalists MACHINE TESTER D62 R06.02 I25.118 Office Visit 10/18/2017 12:04p [facility] Meryl Olmedo M.D. 92612 K27.4 [facility] I21.4 I25.10 Office Visit 10/18/2017 1:59p [facility],agustina Barajas, 63698 K92.2 Hospitalists MACHINE TESTER D62 R06.02 I25.118 Office Visit 10/17/2017 1:58p [facility],agustina Barajas, 03102 K92.2 Hospitalists MACHINE TESTER D62 I25.118 R06.02 Office Visit 10/16/2017 10:32a [facility] Burak [place], 59682 I25.10 Ronal Otto K92.2 Office Visit 10/16/2017 1:57p [facility],pc Renetta Moseley 52738 K92.2 Hospitalists DARLENE Cuevas D62 I25.118 R06.02 Office Visit 10/04/2017 1:20p [facility] Patrick Joshua M.D., 58739 Z48.1 [facility] AT [facility] I21.4 N18.3 D64.9 Office Visit 10/03/2017 10:00a [facility] Angelic Olmedo M.D. 03740 Z95.0 [facility] I25.119 K74.60 N18.9 D64.9 I21.4 Office Visit 09/29/2017 9:49a [facility] Shruti Shields, 13308 I24.9 Assoc,pc MACHINE TESTER Hospitalists R74.8 K74.69 R07.89 Office Visit 09/29/2017 11:18a [facility] Angelic Olmedo M.D. 17272 I25.10 [facility] I95.9 Office Visit 09/28/2017 9:48a [facility] Shruti Shields, 28161 I24.9 Assoc,pc MACHINE TESTER Hospitalists R74.8 K74.69 Office Visit 09/27/2017 9:52a [facility] Patrick Joshua M.D., 59560 R79.89 [facility] AT [facility] Office Visit 09/27/2017 9:24a [facility], Shruti 74352 R07.89 Hospitalists DARLENE Shields R74.8 K74.69 Office Visit 09/27/2017 7:30a [facility] [place] [address] K76.6 Office Visit 09/27/2017 2:37p [facility] Angelic Olmedo, 77934 I25.10 Clarita I95.9 Office Visit 09/26/2017 9:22a [facility],pc Margarita Echavarria, N.P. 89842 R07.89 Hospitalists R74.8 K74.69 Office Visit 09/24/2017 3:30p [facility] [place] [address] R55 FACC E87.70 Z95.0 Office Visit 09/23/2017 12:32p [facility] [place] [address] R55 FACC Z95.0 Office Visit 09/22/2017 12:34p [facility] [place] [address] R55 FACC Z95.0 Office Visit 09/21/2017 2:30p [facility] Angelic Olmedo M.D. 81961 Z95.0 [facility] AT [facility] R06.02 I25.10 Office Visit 08/14/2017 2:40p [facility] Tommy Wei, 25956 R18.8 Infectious Diseases M.D. Office Visit 07/10/2017 3:40p [facility] Tommy Wei, 62916 K73.9 Infectious Diseases M.D. R18.8 Office Visit 03/30/2017 9:45a [facility] [place] [address] G47.33 [facility] Office Visit 09/27/2016 2:49p [facility], Shruti 22901 K70.31 Hospitalists DARLENE Shields G47.33 I10 Z90.49 Office Visit 08/10/2016 1:30p [facility] [place], [address] K80.20 [facility] FACS Office Visit 03/01/2016 9:45a [facility] [place] [address] G47.33 [facility] K21.9 E66.01 Office Visit 07/07/2014 9:15a [facility] Dominic Jensen M.D. 90320 724.4 C.M.A. Office Visit 06/30/2014 8:45a [facility] [place] [address] 327.23 [facility] 719.46 Office Visit 06/11/2014 9:15a [facility] Dominic Jensen M.D. 98060 715.16 C.M.A. Office Visit 05/28/2014 8:00a [facility] Dominic Jensen M.D. 63575 715.16 C.M.A. Office Visit 03/05/2012 11:15a [facility] Bryan Dee, 28671 845.10 C.M.A. Lucian. Office Visit 02/10/2012 8:15a [facility] Bryan Dee, 25554 729.5 C.M.A. Lucian. Office Visit 02/03/2012 11:30a [facility] [place] Dee, 97815 729.5 C.M.A. Clarita Plan of Care Future Appointment(s):04/08/2019 10:30 am - Miriam Anguiano MD at [facility]04/06/2018 - Angelic Olmedo M.D.I25.10 Athscl heart disease of [place] coronary artery w/o ang pctrsReferral:[facility], Rehab:Cardiac Fac/ClinicFollow up:6 weeks approx. Keep current pacer schedule.Z95.0 Presence of cardiac pacemakerComments:ECG shows working well.I95.9 Hypotension, unspecifiedComments:Ensure you get enough fluid.Recommendations:STOP isosorbide.K76.6 Portal hypertension
[2018-06-03 20:33] LABS: Hematocrit 16 % (42-52); Hemoglobin 5.4 g/dl (14.0-18.0); Mean Corpuscular HGB Conc 33 g/dl (31-36); Mean Corpuscular Hemoglobin 33 pg (27-31); Mean Corpuscular Volume 99 fL (80-94); Mean Platelet Volume 7.2 fL (7.4-10.4); Platelet Count 252 10^3/ul (150-450); Red Blood Count 1.67 10^6/ul (4.00-5.40); Red Cell Distribution Width 24 % (10.5-15); White Blood Count 3.7 10^3/ul (3.5-10.8)
[2018-06-03 20:34] LABS: INR 0.91 (0.77-1.02)
[2018-06-03 20:43] LABS: EGFR Non-African American 32.3 (>60)
[2018-06-03 21:16] LABS: ABS Basophils 0 10^3/ul (0-0.2); ABS Eosinophils 0.1 10^3/ul (0-0.6); ABS Lymphocytes 0.9 10^3/ul (1.0-4.8); ABS Monocytes 0.3 10^3/ul (0-0.8); ABS Neutrophils 2.4 10^3/ul (1.5-7.7); ABS Nucleated RBC 0 10^3/ul; Eosinophil % 1.7 % (0-6); Lymphocyte % 25.1 % (25-47); Nucleated Red Blood Cells % 0.2
--- NOTE | 2018-06-03 22:03 | ED ---
Complex/Multi-Sys Presentation - HPI Summary HPI Summary: Patient with history of weekly blood transfusions with IV iron complains of fatigue. Patient was due for transfusion tomorrow, states he felt like he could not make it until tomorrow. Patient states he has history of bleeding colon polyp that cannot be addressed while he is on Plavix. Patient also states that he cannot be taken off Plavix due to risk of restenosis of cardiac stent. Denies any other symptoms including fever, cough, sore throat, CP, SOB, N/V/D, abdominal pain, change in urine, change in BM. CAD, HDL, CK D, anemia, GI bleed. - History Of Current Complaint Chief Complaint: EDGIBleed Time Seen by Provider: 06/03/18 20:11 Hx Obtained From: Patient, Family/Creel Clerk Onset/Duration: Gradual Onset Timing: Constant Severity Currently: Moderate Severity Initially: Moderate Associated Signs And Symptoms: Positive: Weakness - Allergies/Home Medications Allergies/Adverse Reactions: Allergies Allergy/AdvReac Type Severity Reaction Status Date / Time Adhesive Tape Allergy Unknown Verified 06/03/18 20:33 Reaction Details horse dander Allergy Swelling Verified 06/03/18 20:33 Horse/Equine Containing Allergy Hives Verified 06/03/18 20:33 Products latex Allergy Unknown Verified 06/03/18 20:33 Reaction Details midodrine Allergy Unknown Verified 06/03/18 20:33 Reaction Details HORSE SERUM Allergy Severe Swelling, Uncoded 06/03/18 20:33 hives PMH/Surg Hx/FS Hx/Imm Hx Endocrine/Hematology History: Reports: Hx Anticoagulant Therapy, Hx Anemia, Hx Unexplained Bleeding Cardiovascular History: Reports: Hx Angina, Hx Coronary Artery Disease, Hx Hypercholesterolemia, Hx Hypertension, Hx Myocardial Infarction, Hx Pacemaker/ ICD - pacemaker Respiratory History: Reports: Hx Sleep Apnea - current CPAP user GI History: Reports: Hx Cirrhosis, Hx Gastroesophageal Reflux Disease, Hx Irritable Bowel, Other GI Disorders - brijesh'y, jesskia'y History: Reports: Other Problems/Disorders - weak bladder s/p bladder cancer Musculoskeletal History: Reports: Other Musculoskeletal History - hammer toes, both feet, had sx. Denies: Hx Rheumatoid Arthritis Sensory History: Reports: Hx Contacts or Glasses Denies: Hx Deafness, Hx Hearing Aid, Other Sensory Impairments Opthamlomology History: Reports: Hx Contacts or Glasses Denies: Other Sensory Impairments Neurological History: Denies: Hx Headaches, Hx Seizures, Hx Transient Ischemic Attacks (TIA) Psychiatric History: Denies: Hx Autism, Hx Schizophrenia - Cancer History Cancer Type, Location and Year: bladder cancer Hx Chemotherapy: No - Surgical History Surgery Procedure, Year, and Place: cataract surgery with lens implants bilat eyes. hammer toe repair bilat feet. appendectomy. cholecystectomy Hx Anesthesia Reactions: No - Immunization History Date of Tetanus Vaccine: unk Date of Influenza Vaccine: fall 2017 Infectious Disease History: No Infectious Disease History: Denies: Traveled Outside the [place] in Last 30 Days - Family History Known Family History: Positive: Cardiac Disease Negative: Hypertension, Diabetes - Social History Alcohol Use: Occasionally Alcohol Amount: none since August when issues started Substance Use Type: Reports: None Hx Tobacco Use: No Smoking Status (MU): Former Smoker Type: Cigarettes Have You Smoked in the Last Year: No Review of Systems Positive: Fatigue Eyes: Negative ENT: Negative Cardiovascular: Negative Respiratory: Negative Gastrointestinal: Negative Genitourinary: Negative Musculoskeletal: Negative Skin: Negative Neurological: Negative Psychological: Normal All Other Systems Reviewed And Are Negative: Yes Physical Exam Triage Information Reviewed: Yes Vital Signs On Initial Exam: Initial Vitals Temp Pulse Resp BP Pulse Ox 98.1 F 73 20 89/37 100 06/03/18 19:14 06/03/18 19:14 06/03/18 19:14 06/03/18 19:14 06/03/18 19:14 Vital Signs Reviewed: Yes Appearance: Positive: Well-Appearing Skin: Positive: Warm Head/Face: Positive: Normal Head/Face Inspection Eyes: Positive: Normal Neck: Positive: Supple Respiratory/Lung Sounds: Positive: Clear to Auscultation Cardiovascular: Positive: Normal Abdomen Description: Positive: Nontender Musculoskeletal: Positive: Normal Neurological: Positive: Normal Psychiatric: Positive: Normal AVPU Assessment: Alert - [place] Coma Scale Best Eye Response: 4 - Spontaneous Best Motor Response: 6 - Obeys Commands Best Verbal Response: 5 - Oriented Coma Scale Total: 15 Diagnostics - Vital Signs Vital Signs Temp Pulse Resp BP Pulse Ox 06/03/18 21:00 78 14 100 06/03/18 20:58 80 15 107/42 100 06/03/18 20:28 72 16 119/52 99 06/03/18 20:22 79 21 104/55 98 06/03/18 20:00 79 16 100 06/03/18 19:58 76 16 127/56 100 06/03/18 19:57 17 06/03/18 19:14 98.1 F 73 20 89/37 100 - Laboratory Lab Results: Lab Results 06/03/18 06/03/18 06/03/18 Range/Units 20:17 20:17 20:17 WBC (3.5-10.8) 10^3/ul RBC (4.00-5.40) 10^6/ul Hgb (14.0-18.0) g/dl Hct (42-52) % MCV (80-94) fL MCH (27-31) pg MCHC (31-36) g/dl RDW (10.5-15) % Plt Count (150-450) 10^3/ul MPV (7.4-10.4) fL Neut % (Auto) (38-83) % Lymph % (Auto) (25-47) % Dewey % (Auto) (0-7) % Eos % (Auto) (0-6) % Baso % (Auto) (0-2) % Absolute Neuts (auto) (1.5-7.7) 10^3/ul Absolute Lymphs (auto) (1.0-4.8) 10^3/ul Absolute Monos (auto) (0-0.8) 10^3/ul Absolute Eos (auto) (0-0.6) 10^3/ul Absolute Basos (auto) (0-0.2) 10^3/ul Absolute Nucleated RBC 10^3/ul Nucleated RBC % Polychromasia Anisocytosis Elliptocytes INR (Anticoag Therapy) 0.91 (0.77-1.02) APTT 28.8 (26.0-36.3) seconds Sodium 136 (135-145) mmol/L Potassium 4.4 (3.5-5.0) mmol/L Chloride 111 (101-111) mmol/L Carbon Dioxide 20 L (22-32) mmol/L Anion Gap 5 (2-11) mmol/L BUN 45 H (6-24) mg/dL Creatinine 2.02 H (0.67-1.17) mg/dL Est GFR ( Amer) 39.1 (>60) Est GFR (Non-Af Amer) 32.3 (>60) BUN/Creatinine Ratio 22.3 H (8-20) Glucose 153 H (70-100) mg/dL Calcium 7.8 L (8.6-10.3) mg/dL Total Bilirubin 0.60 (0.2-1.0) mg/dL AST 33 (13-39) U/L ALT 21 (7-52) U/L Alkaline Phosphatase 146 H (34-104) U/L Total Protein 5.4 L (6.4-8.9) g/dL Albumin 2.3 L (3.2-5.2) g/dL Globulin 3.1 (2-4) g/dL Albumin/Globulin Ratio 0.7 L (1-3) Blood Type A Positive Antibody Screen Negative Crossmatch See Detail 06/03/18 Range/Units 20:18 WBC 3.7 (3.5-10.8) 10^3/ul RBC 1.67 L (4.00-5.40) 10^6/ul Hgb 5.4 L* (14.0-18.0) g/dl Hct 16 L (42-52) % MCV 99 H (80-94) fL MCH 33 H (27-31) pg MCHC 33 (31-36) g/dl RDW 24 H (10.5-15) % Plt Count 252 (150-450) 10^3/ul MPV 7.2 L (7.4-10.4) fL Neut % (Auto) 64.2 (38-83) % Lymph % (Auto) 25.1 (25-47) % Dewey % (Auto) 8.1 H (0-7) % Eos % (Auto) 1.7 (0-6) % Baso % (Auto) 0.9 (0-2) % Absolute Neuts (auto) 2.4 (1.5-7.7) 10^3/ul Absolute Lymphs (auto) 0.9 L (1.0-4.8) 10^3/ul Absolute Monos (auto) 0.3 (0-0.8) 10^3/ul Absolute Eos (auto) 0.1 (0-0.6) 10^3/ul Absolute Basos (auto) 0 (0-0.2) 10^3/ul Absolute Nucleated RBC 0 10^3/ul Nucleated RBC % 0.2 Polychromasia 1+ Anisocytosis 3+ Elliptocytes 1+ INR (Anticoag Therapy) (0.77-1.02) APTT (26.0-36.3) seconds Sodium (135-145) mmol/L Potassium (3.5-5.0) mmol/L Chloride (101-111) mmol/L Carbon Dioxide (22-32) mmol/L Anion Gap (2-11) mmol/L BUN (6-24) mg/dL Creatinine (0.67-1.17) mg/dL Est GFR ( Amer) (>60) Est GFR (Non-Af Amer) (>60) BUN/Creatinine Ratio (8-20) Glucose (70-100) mg/dL Calcium (8.6-10.3) mg/dL Total Bilirubin (0.2-1.0) mg/dL AST (13-39) U/L ALT (7-52) U/L Alkaline Phosphatase (34-104) U/L Total Protein (6.4-8.9) g/dL Albumin (3.2-5.2) g/dL Globulin (2-4) g/dL Albumin/Globulin Ratio (1-3) Blood Type Antibody Screen Crossmatch Result Diagrams: 06/03/18 20:18 06/03/18 20:17 Lab Statement: Any lab studies that have been ordered have been reviewed, and results considered in the medical decision making process. Complex Multi-Symp Course/Dx Course Of Treatment: Patient with history of weekly blood transfusions with IV iron complains of fatigue. Patient was due for transfusion tomorrow, states he felt like he could not make it until tomorrow. Patient states he has history of bleeding colon polyp that cannot be addressed while he is on Plavix. Patient also states that he cannot be taken off Plavix due to risk of restenosis of cardiac stent. Denies any other symptoms including fever, cough, sore throat, CP, SOB, N/V/D, abdominal pain, change in urine, change in BM. CAD , HDL, CKD, anemia, GI bleed. Patient is pale. Patient hypotensive, vital signs otherwise within normal limits. Hemoglobin 5.4. Transfusion with 2 units of RBCs initiated. 1 L normal saline administered with subsequent stabilization of blood pressure. Patient will be admitted to hospitalist. - Diagnoses Provider Diagnoses: Anemia Discharge - Sign-Out/Discharge Documenting (check all that apply): Patient Departure - Discharge Plan Condition: Stable Disposition: ADMITTED TO [facility] - Billing Disposition and Condition Condition: STABLE Disposition: Admitted to [facility]
--- NOTE | 2018-06-03 23:39 | ADMNOTE ---
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 he is scheduled for tmr for transfusion but could not wait until then. his hg was 5.7 with his baseline hg around. pt was written to get four units of prbc with lasix iv given in between prbc. his sbp dropped to 80s when sleeping---> will hold his regular lsix/aldactone for now and reassess phx cad s/p mi ---> four stents placed 02/2018 cryptogenic cirrhosis with ascites s/p tips procedure done 02/2018 chronic anemia transfusion and iron dep recurrent gib due to colon polyps s/p egd and colonscopy and small bowel encapsulated study all inconclusive reg precise site of gib chronic kidney dz MGUS howie hx of sick sinus syndrome s/p ppm hx of bladder cancer hx of colon polyps as the possible source of bleeding hx of dvt of rle s/p ivc filter pshx s/p tips 02/2018 s/p 4 cardiac stents placed 02/2018 s/p cholecystecomy s/p appy s/p ppm social hx no cig now formal cig smoker occ etoh comes from home lives with fhx father + bladder ca Family History: Findings - as above Social History: Findings - as above Past Medical History: Findings - as above Review of Systems - Measurements Intake and Output: Intake and Output Last 24 Hours 06/01/18 06/02/18 06/03/18 06/04/18 07:59 07:59 06:59 06:59 Weight 208 lb - Review of Systems General Comments: pertinent as per hpi otherwise went over with pt denied beyond his baseline Objective Vital Signs - 8 hr 06/03/18 06/03/18 06/03/18 19:14 19:57 19:58 Temperature 98.1 F Pulse Rate 73 76 Respiratory 20 17 16 Rate Blood Pressure 89/37 127/56 (mmHg) O2 Sat by Pulse 100 100 Oximetry 11/04/18 11/04/18 11/04/18 20:00 20:22 20:28 Temperature Pulse Rate 79 79 72 Respiratory 16 21 16 Rate Blood Pressure 104/55 119/52 (mmHg) O2 Sat by Pulse 100 98 99 Oximetry 06/03/18 06/03/18 06/03/18 20:58 21:00 21:22 Temperature Pulse Rate 80 78 81 Respiratory 15 14 14 Rate Blood Pressure 107/42 124/58 (mmHg) O2 Sat by Pulse 100 100 100 Oximetry 06/03/18 06/03/18 06/03/18 21:27 21:42 21:43 Temperature Pulse Rate 80 77 77 Respiratory 13 25 17 Rate Blood Pressure 113/54 96/54 103/52 (mmHg) O2 Sat by Pulse 100 100 100 Oximetry 06/03/18 06/03/18 06/03/18 21:58 22:00 22:13 Temperature Pulse Rate 80 76 77 Respiratory 15 16 15 Rate Blood Pressure 98/52 93/50 (mmHg) O2 Sat by Pulse 99 99 100 Oximetry 06/03/18 06/03/18 06/03/18 22:28 22:43 22:58 Temperature Pulse Rate 75 81 80 Respiratory 15 12 17 Rate Blood Pressure 99/51 103/42 86/36 (mmHg) O2 Sat by Pulse 99 100 100 Oximetry 06/03/18 23:00 Temperature Pulse Rate 85 Respiratory 19 Rate Blood Pressure (mmHg) O2 Sat by Pulse 99 Oximetry Oxygen Devices in Use Now: Nasal Cannula Appearance: nad Eyes: PERRLA Ears/Nose/Mouth/Throat: NL Teeth, Lips, Gums, Clear Oropharnyx Neck: NL Appearance and Movements; NL JVP, Trachea Midline, No Thyroid Enlargement, Masses Respiratory: Symmetrical Chest Expansion and Respiratory Effort, Clear to Auscultation Cardiovascular: - - s1 s2 + ppm Abdominal: - - + bs soft + ascites Extremities: - - +4 pedal edema from ankle to knee 2+ from knee to thigh able to raise ue and le against gravity Skin: No Rash or Ulcers Neurological: Alert and Oriented x 3, - - cranial n 2-12 grossly intact motor b/ l ue/le 5/5 sensory b/l ue 2/2 le 1/2 plantar reflex downwards Result Diagrams: 06/05/18 06:57 06/05/18 06:57 Additional Lab and Data: Lab Results 11/04/18 11/04/18 11/04/18 Range/Units 20:17 20:17 20:17 WBC (3.5-10.8) 10^3/ul RBC (4.00-5.40) 10^6/ul Hgb (14.0-18.0) g/dl Hct (42-52) % MCV (80-94) fL MCH (27-31) pg MCHC (31-36) g/dl RDW (10.5-15) % Plt Count (150-450) 10^3/ul MPV (7.4-10.4) fL Neut % (Auto) (38-83) % Lymph % (Auto) (25-47) % Rains % (Auto) (0-7) % Eos % (Auto) (0-6) % Baso % (Auto) (0-2) % Absolute Neuts (auto) (1.5-7.7) 10^3/ul Absolute Lymphs (auto) (1.0-4.8) 10^3/ul Absolute Monos (auto) (0-0.8) 10^3/ul Absolute Eos (auto) (0-0.6) 10^3/ul Absolute Basos (auto) (0-0.2) 10^3/ul Absolute Nucleated RBC 10^3/ul Nucleated RBC % Polychromasia Anisocytosis Elliptocytes INR (Anticoag Therapy) 0.91 (0.77-1.02) APTT 28.8 (26.0-36.3) seconds Sodium 136 (135-145) mmol/L Potassium 4.4 (3.5-5.0) mmol/L Chloride 111 (101-111) mmol/L Carbon Dioxide 20 L (22-32) mmol/L Anion Gap 5 (2-11) mmol/L BUN 45 H (6-24) mg/dL Creatinine 2.02 H (0.67-1.17) mg/dL Est GFR ( Amer) 39.1 (>60) Est GFR (Non-Af Amer) 32.3 (>60) BUN/Creatinine Ratio 22.3 H (8-20) Glucose 153 H (70-100) mg/dL Calcium 7.8 L (8.6-10.3) mg/dL Total Bilirubin 0.60 (0.2-1.0) mg/dL AST 33 (13-39) U/L ALT 21 (7-52) U/L Alkaline Phosphatase 146 H (34-104) U/L Total Protein 5.4 L (6.4-8.9) g/dL Albumin 2.3 L (3.2-5.2) g/dL Globulin 3.1 (2-4) g/dL Albumin/Globulin Ratio 0.7 L (1-3) Blood Type A Positive Antibody Screen Negative Crossmatch See Detail 06/03/18 Range/Units 20:18 WBC 3.7 (3.5-10.8) 10^3/ul RBC 1.67 L (4.00-5.40) 10^6/ul Hgb 5.4 L* (14.0-18.0) g/dl Hct 16 L (42-52) % MCV 99 H (80-94) fL MCH 33 H (27-31) pg MCHC 33 (31-36) g/dl RDW 24 H (10.5-15) % Plt Count 252 (150-450) 10^3/ul MPV 7.2 L (7.4-10.4) fL Neut % (Auto) 64.2 (38-83) % Lymph % (Auto) 25.1 (25-47) % Rains % (Auto) 8.1 H (0-7) % Eos % (Auto) 1.7 (0-6) % Baso % (Auto) 0.9 (0-2) % Absolute Neuts (auto) 2.4 (1.5-7.7) 10^3/ul Absolute Lymphs (auto) 0.9 L (1.0-4.8) 10^3/ul Absolute Monos (auto) 0.3 (0-0.8) 10^3/ul Absolute Eos (auto) 0.1 (0-0.6) 10^3/ul Absolute Basos (auto) 0 (0-0.2) 10^3/ul Absolute Nucleated RBC 0 10^3/ul Nucleated RBC % 0.2 Polychromasia 1+ Anisocytosis 3+ Elliptocytes 1+ INR (Anticoag Therapy) (0.77-1.02) APTT (26.0-36.3) seconds Sodium (135-145) mmol/L Potassium (3.5-5.0) mmol/L Chloride (101-111) mmol/L Carbon Dioxide (22-32) mmol/L Anion Gap (2-11) mmol/L BUN (6-24) mg/dL Creatinine (0.67-1.17) mg/dL Est GFR ( Amer) (>60) Est GFR (Non-Af Amer) (>60) BUN/Creatinine Ratio (8-20) Glucose (70-100) mg/dL Calcium (8.6-10.3) mg/dL Total Bilirubin (0.2-1.0) mg/dL AST (13-39) U/L ALT (7-52) U/L Alkaline Phosphatase (34-104) U/L Total Protein (6.4-8.9) g/dL Albumin (3.2-5.2) g/dL Globulin (2-4) g/dL Albumin/Globulin Ratio (1-3) Blood Type Antibody Screen Crossmatch Assess/Plan/Problems-Billing Assessment: 78 yr old wm with hx of cryptogenic cirrhosis s/p tips complicated with mi with four stents 02/2018 has been transfusion dept since 02/2018. he has recent stents placed and has to be on asa and plavix for his cardiac need. pt has been getting weekly transfusion and iv iron ---> hx of dvt s/p ivc filter placed 2017 - Patient Problems (1) Acute blood loss anemia Current Visit: Yes Status: Acute Code(s): D62 - ACUTE POSTHEMORRHAGIC ANEMIA SNOMED Code(s): 761776591 Comment: -S/P 4 units of PRBC transfusion -Due to known pedunculated colonic polyps in setting of needed DAPT -appreciate recs from Dr. Ruiz. 1 more unit of blood. f/u with Dr. Looney at [facility] - continue ppi (2) CAD (coronary artery disease) Current Visit: Yes Status: Acute Code(s): I25.10 - ATHSCL HEART DISEASE OF [place] CORONARY ARTERY W/O ANG PCTRS SNOMED Code(s): 40808172 Comment: -Continue ASA, Plavix, and statins (3) Chronic renal disease, stage 4, severely decreased glomerular filtration rate (GFR) between 15-29 mL/min/1.73 square meter Current Visit: Yes Status: Acute Code(s): N18.4 - CHRONIC KIDNEY DISEASE, STAGE 4 (SEVERE) SNOMED Code(s): 988745432 Comment: moniter (4) Sick sinus syndrome Current Visit: Yes Status: Acute Code(s): I49.5 - SICK SINUS SYNDROME SNOMED Code(s): 92379000 Comment: s/p ppm tele otherwise continue home meds (5) HOWIE (obstructive sleep apnea) Current Visit: Yes Status: Acute Code(s): G47.33 - OBSTRUCTIVE SLEEP APNEA ( ADULT) (PEDIATRIC) SNOMED Code(s): 03897783 (6) Cryptogenic cirrhosis Current Visit: Yes Status: Acute Code(s): K74.69 - OTHER CIRRHOSIS OF LIVER SNOMED Code(s): 84482723 Comment: -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
[2018-06-03] MEDS ORDERED: Furosemide IV* 10 MG/ML 2 ML VIAL (20 MG) IV ONE (23:51)
[2018-06-04] MEDS ORDERED: Furosemide IV* 10 MG/ML 2 ML VIAL (20 MG) IV ONE (01:17)
[2018-06-04 05:06] LABS: Hematocrit 21 % (42-52)
[2018-06-04 05:24] LABS: EGFR Non-African American 32.1 (>60)
[2018-06-04] MEDS: Atorvastatin* 80 MG TAB PO SCH (08:50)
[2018-06-04] MEDS: CMCS: Pantoprazole TAB (NF) 40 MG TAB PO SCH (08:50)
[2018-06-04] MEDS: Clopidogrel TAB* 75 MG PO SCH (08:50)
[2018-06-04] MEDS: Aspirin EC TAB* 81 MG TAB.EC PO SCH (08:51)
[2018-06-04] MEDS: Docusate CAP* 100 MG PO SCH (08:52)
[2018-06-04] MEDS ORDERED: Furosemide TAB* 40 MG PO SCH (09:00)
[2018-06-04] MEDS ORDERED: Spironolactone TAB* 25 MG PO SCH (09:00)
[2018-06-04] MEDS ORDERED: Metoprolol Succinate XL TAB* 25 MG PO SCH (09:00)
[2018-06-04 15:11] LABS: Hematocrit 23 % (42-52); Hemoglobin 8.1 g/dl (14.0-18.0); Mean Corpuscular HGB Conc 35 g/dl (31-36); Mean Corpuscular Hemoglobin 32 pg (27-31); Mean Corpuscular Volume 91 fL (80-94); Platelet Count 163 10^3/ul (150-450); Red Blood Count 2.54 10^6/ul (4.00-5.40); Red Cell Distribution Width 21 % (10.5-15); White Blood Count 3.4 10^3/ul (3.5-10.8)
--- NOTE | 2018-06-04 17:08 | PN ---
Subjective Date of Service: 06/04/18 Interval History: Pt seen and examined. Meds and labs reviewed. Pt was requesting to have GI F/ U to discuss capsule endoscopy and if any change in plan. I told pt and that given his recent KASSY placement, it will be at least 6 months for him to be considered to be off of DAPT and will need to be cleared by Cards; otherwise it would be unlikely for GI to change plans. D/W w/Dr. Ruiz who agrees with above and mentioned he saw pt outpt and informed him that the VCE results did not identify any other GI lesions other than known pedunculated colonic polyps. Dr. Ruiz mentions he will be visiting pt later today. Appreciate Dr. Peace help. CC: N/A ROS: Denied VIEYRA/dizziness, F/C, N/V, CP, SOB, increased cough, sputum production , abd pain, diarrhea, constipation, dysuria, myalgias, arthralgias, throat pain , and new skin lesions. The rest of the 14 point ROS are unremarkable. PHYSICAL EXAM: GEN APPEARANCE: Awake, not in acute distress HEENT: NC/AT, PERRLA, moist oral mucosa, (-) throat erythema NECK: Soft, supple, (-) cervical LAD, (-)JVD HEART: S1S2 WNL, RRR, No MRG CHEST: CTA, BL, GAE, No W/R/R ABD: Soft, mild ascites/NT, NABS 4x Q EXT: No C/C/E SKIN: Warm to touch PSYCH: No active psychosis, hallucinations, depression, SI/HI Family History: Unchanged from Admission Objective Active Medications: Aspirin (Aspirin Ec Tab*) 81 mg PO DAILY [facility] Last Admin: 06/04/18 08:51 Dose: 81 mg Atorvastatin Calcium (Lipitor*) 80 mg PO DAILY [facility] Last Admin: 06/04/18 08:50 Dose: 80 mg Clopidogrel Bisulfate (Plavix Tab*) 75 mg PO DAILY [facility] Last Admin: 06/04/18 08:50 Dose: 75 mg Docusate Sodium (Colace Cap*) 1 mg PO DAILY [facility] Last Admin: 06/04/18 08:52 Dose: Not Given Pantoprazole Sodium (Protonix Tab (Nf)) 40 mg PO DAILY [facility] Last Admin: 06/04/18 08:50 Dose: 40 mg Spironolactone (Aldactone Tab*) 100 mg PO DAILY [facility] Vital Signs - 8 hr 06/04/18 06/04/18 11:29 15:20 Temperature 99.5 F 98.6 F Pulse Rate 75 70 Respiratory 16 12 Rate Blood Pressure 105/49 91/38 (mmHg) O2 Sat by Pulse 98 99 Oximetry Oxygen Devices in Use Now: None Result Diagrams: 06/04/18 15:02 06/04/18 04:49 Additional Lab and Data: Lab Results 06/03/18 06/03/18 06/03/18 Range/Units 20:17 20:17 20:17 WBC (3.5-10.8) 10^3/ul RBC (4.00-5.40) 10^6/ul Hgb (14.0-18.0) g/dl Hct (42-52) % MCV (80-94) fL MCH (27-31) pg MCHC (31-36) g/dl RDW (10.5-15) % Plt Count (150-450) 10^3/ul MPV (7.4-10.4) fL Neut % (Auto) (38-83) % Lymph % (Auto) (25-47) % Stevens % (Auto) (0-7) % Eos % (Auto) (0-6) % Baso % (Auto) (0-2) % Absolute Neuts (auto) (1.5-7.7) 10^3/ul Absolute Lymphs (auto) (1.0-4.8) 10^3/ul Absolute Monos (auto) (0-0.8) 10^3/ul Absolute Eos (auto) (0-0.6) 10^3/ul Absolute Basos (auto) (0-0.2) 10^3/ul Absolute Nucleated RBC 10^3/ul Nucleated RBC % Polychromasia Anisocytosis Elliptocytes INR (Anticoag Therapy) 0.91 (0.77-1.02) APTT 28.8 (26.0-36.3) seconds Sodium 136 (135-145) mmol/L Potassium 4.4 (3.5-5.0) mmol/L Chloride 111 (101-111) mmol/L Carbon Dioxide 20 L (22-32) mmol/L Anion Gap 5 (2-11) mmol/L BUN 45 H (6-24) mg/dL Creatinine 2.02 H (0.67-1.17) mg/dL Est GFR ( Amer) 39.1 (>60) Est GFR (Non-Af Amer) 32.3 (>60) BUN/Creatinine Ratio 22.3 H (8-20) Glucose 153 H (70-100) mg/dL Calcium 7.8 L (8.6-10.3) mg/dL Total Bilirubin 0.60 (0.2-1.0) mg/dL AST 33 (13-39) U/L ALT 21 (7-52) U/L Alkaline Phosphatase 146 H (34-104) U/L Total Protein 5.4 L (6.4-8.9) g/dL Albumin 2.3 L (3.2-5.2) g/dL Globulin 3.1 (2-4) g/dL Albumin/Globulin Ratio 0.7 L (1-3) Blood Type A Positive Antibody Screen Negative Crossmatch See Detail 06/03/18 Range/Units 20:18 WBC 3.7 (3.5-10.8) 10^3/ul RBC 1.67 L (4.00-5.40) 10^6/ul Hgb 5.4 L* (14.0-18.0) g/dl Hct 16 L (42-52) % MCV 99 H (80-94) fL MCH 33 H (27-31) pg MCHC 33 (31-36) g/dl RDW 24 H (10.5-15) % Plt Count 252 (150-450) 10^3/ul MPV 7.2 L (7.4-10.4) fL Neut % (Auto) 64.2 (38-83) % Lymph % (Auto) 25.1 (25-47) % Stevens % (Auto) 8.1 H (0-7) % Eos % (Auto) 1.7 (0-6) % Baso % (Auto) 0.9 (0-2) % Absolute Neuts (auto) 2.4 (1.5-7.7) 10^3/ul Absolute Lymphs (auto) 0.9 L (1.0-4.8) 10^3/ul Absolute Monos (auto) 0.3 (0-0.8) 10^3/ul Absolute Eos (auto) 0.1 (0-0.6) 10^3/ul Absolute Basos (auto) 0 (0-0.2) 10^3/ul Absolute Nucleated RBC 0 10^3/ul Nucleated RBC % 0.2 Polychromasia 1+ Anisocytosis 3+ Elliptocytes 1+ INR (Anticoag Therapy) (0.77-1.02) APTT (26.0-36.3) seconds Sodium (135-145) mmol/L Potassium (3.5-5.0) mmol/L Chloride (101-111) mmol/L Carbon Dioxide (22-32) mmol/L Anion Gap (2-11) mmol/L BUN (6-24) mg/dL Creatinine (0.67-1.17) mg/dL Est GFR ( Amer) (>60) Est GFR (Non-Af Amer) (>60) BUN/Creatinine Ratio (8-20) Glucose (70-100) mg/dL Calcium (8.6-10.3) mg/dL Total Bilirubin (0.2-1.0) mg/dL AST (13-39) U/L ALT (7-52) U/L Alkaline Phosphatase (34-104) U/L Total Protein (6.4-8.9) g/dL Albumin (3.2-5.2) g/dL Globulin (2-4) g/dL Albumin/Globulin Ratio (1-3) Blood Type Antibody Screen Crossmatch Assess/Plan/Problems-Billing Assessment: 78 yr old wm with hx of cryptogenic cirrhosis s/p tips complicated with mi with four stents 02/2018 has been transfusion dept since 02/2018. he has recent stents placed and has to be on asa and plavix for his cardiac need. pt has been getting weekly transfusion and iv iron ---> hx of dvt s/p ivc filter placed 2017 - Patient Problems (1) Anemia Current Visit: No Status: Acute Code(s): D64.9 - ANEMIA, UNSPECIFIED SNOMED Code(s): 091087723 Comment: -S/P 4 units of PRBC transfusion -For repeat CBC at 2200 -Due to known pedunculated colonic polyps -Will await any further input from Dr. Ruiz (2) CAD (coronary artery disease) Current Visit: Yes Status: Acute Code(s): I25.10 - ATHSCL HEART DISEASE OF [place] CORONARY ARTERY W/O ANG PCTRS SNOMED Code(s): 34185295 Comment: -Continue ASA, Plavix, and statins (3) Ascites Current Visit: Yes Status: Acute Code(s): R18.8 - OTHER ASCITES SNOMED Code(s): 888807996 Comment: -Will place pt on low sodium diet, clear liquid to better monitor stool color and quality -D/C Lasix and resume Spirinolactone -Resume Lasix if pt continues to be hemodynamically stable (4) Cryptogenic cirrhosis Current Visit: Yes Status: Acute Code(s): K74.69 - OTHER CIRRHOSIS OF LIVER SNOMED Code(s): 85546011 Comment: -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
[2018-06-04 22:05] LABS: Hematocrit 22 % (42-52); Hemoglobin 7.5 g/dl (14.0-18.0); Mean Corpuscular HGB Conc 35 g/dl (31-36); Mean Corpuscular Hemoglobin 32 pg (27-31); Mean Corpuscular Volume 92 fL (80-94); Mean Platelet Volume 7.3 fL (7.4-10.4); Platelet Count 158 10^3/ul (150-450); Red Blood Count 2.38 10^6/ul (4.00-5.40); Red Cell Distribution Width 20 % (10.5-15); White Blood Count 3.6 10^3/ul (3.5-10.8)
[2018-06-04] MEDS ORDERED: Furosemide IV* 10 MG/ML VIAL (40 MG) IV ONE (23:53)
[2018-06-05 07:28] LABS: ABS Basophils 0 10^3/ul (0-0.2); ABS Eosinophils 0.2 10^3/ul (0-0.6); ABS Lymphocytes 0.7 10^3/ul (1.0-4.8); ABS Monocytes 0.3 10^3/ul (0-0.8); ABS Neutrophils 1.3 10^3/ul (1.5-7.7); ABS Nucleated RBC 0 10^3/ul; Eosinophil % 8.7 % (0-6); Hematocrit 23 % (42-52); Hemoglobin 7.8 g/dl (14.0-18.0); Mean Corpuscular HGB Conc 35 g/dl (31-36); Mean Corpuscular Hemoglobin 32 pg (27-31); Mean Corpuscular Volume 91 fL (80-94); Mean Platelet Volume 7.4 fL (7.4-10.4); Nucleated Red Blood Cells % 0; Platelet Count 144 10^3/ul (150-450); Red Blood Count 2.48 10^6/ul (4.00-5.40); Red Cell Distribution Width 21 % (10.5-15); White Blood Count 2.5 10^3/ul (3.5-10.8)
[2018-06-05 07:38] LABS: EGFR Non-African American 33.4 (>60)
[2018-06-05] MEDS ORDERED: Spironolactone TAB* 25 MG PO SCH (09:00)
[2018-06-05] MEDS: Atorvastatin* 80 MG TAB PO SCH (09:04)
[2018-06-05] MEDS: CMCS: Pantoprazole TAB (NF) 40 MG TAB PO SCH (09:04)
[2018-06-05] MEDS: Clopidogrel TAB* 75 MG PO SCH (09:04)
[2018-06-05] MEDS: Aspirin EC TAB* 81 MG TAB.EC PO SCH (09:05)
[2018-06-05] MEDS: Docusate CAP* 100 MG PO SCH (09:05)
--- NOTE | 2018-06-05 15:02 | PN ---
Subjective Date of Service: 06/05/18 Interval History: Pt spoke with Dr. Ruiz who told him he was going to call [facility] at [facility]. Dr. Ruiz has not reached him yet but recommended additional pRBC transfusion. Hgb stable 7.8 Pt states he continues to have chronic blood lose in his BMs Family History: Unchanged from Admission Objective Active Medications: Aspirin (Aspirin Ec Tab*) 81 mg PO DAILY [facility] Last Admin: 06/05/18 09:05 Dose: 81 mg Atorvastatin Calcium (Lipitor*) 80 mg PO DAILY [facility] Last Admin: 06/05/18 09:04 Dose: 80 mg Clopidogrel Bisulfate (Plavix Tab*) 75 mg PO DAILY [facility] Last Admin: 06/05/18 09:04 Dose: 75 mg Docusate Sodium (Colace Cap*) 1 mg PO DAILY [facility] Last Admin: 06/05/18 09:05 Dose: Not Given Pantoprazole Sodium (Protonix Tab (Nf)) 40 mg PO DAILY [facility] Last Admin: 06/05/18 09:04 Dose: 40 mg Spironolactone (Aldactone Tab*) 100 mg PO DAILY [facility] Last Admin: 06/05/18 09:05 Dose: 100 mg Vital Signs - 8 hr 06/05/18 06/05/18 06/05/18 08:42 09:24 11:49 Temperature 98.7 F 98.3 F Pulse Rate 73 78 Respiratory 18 18 16 Rate Blood Pressure 96/38 93/40 (mmHg) O2 Sat by Pulse 97 99 Oximetry Oxygen Devices in Use Now: None Appearance: NAD Eyes: No Scleral Icterus, PERRLA Ears/Nose/Mouth/Throat: NL Teeth, Lips, Gums, Mucous Membranes Moist Neck: NL Appearance and Movements; NL JVP Respiratory: Symmetrical Chest Expansion and Respiratory Effort, Clear to Auscultation Cardiovascular: NL Sounds; No Murmurs; No JVD, RRR Abdominal: - - distended, soft, nontender. Extremities: No Edema, No Clubbing, Cyanosis Skin: No Rash or Ulcers, No Nodules or Sclerosis Nutrition: Taking PO's Result Diagrams: 06/05/18 06:57 06/05/18 06:57 Additional Lab and Data: Laboratory Results - last 24 hr 06/03/18 06/04/18 06/05/18 20:17 21:54 06:57 WBC 3.6 2.5 L RBC 2.38 L 2.48 L Hgb 7.5 L 7.8 L Hct 22 L 23 L MCV 92 91 MCH 32 H 32 H MCHC 35 35 RDW 20 H 21 H Plt Count 158 144 L MPV 7.3 L 7.4 Neut % (Auto) 53.5 Lymph % (Auto) 26.0 [place] % (Auto) 10.7 H Eos % (Auto) 8.7 H Baso % (Auto) 1.1 Absolute Neuts (auto) 1.3 L Absolute Lymphs (auto) 0.7 L Absolute Monos (auto) 0.3 Absolute Eos (auto) 0.2 Absolute Basos (auto) 0 Absolute Nucleated RBC 0 Nucleated RBC % 0 Sodium Potassium Chloride Carbon Dioxide Anion Gap BUN Creatinine Est GFR ( Amer) Est GFR (Non-Af Amer) BUN/Creatinine Ratio Glucose Calcium Phosphorus Magnesium Total Bilirubin AST ALT Alkaline Phosphatase Total Protein Albumin Globulin Albumin/Globulin Ratio Blood Type A Positive Antibody Screen Negative Crossmatch See Detail 06/05/18 06:57 WBC RBC Hgb Hct MCV MCH MCHC RDW Plt Count MPV Neut % (Auto) Lymph % (Auto) [place] % (Auto) Eos % (Auto) Baso % (Auto) Absolute Neuts (auto) Absolute Lymphs (auto) Absolute Monos (auto) Absolute Eos (auto) Absolute Basos (auto) Absolute Nucleated RBC Nucleated RBC % Sodium 136 Potassium 4.0 Chloride 110 Carbon Dioxide 22 Anion Gap 4 BUN 39 H Creatinine 1.96 H Est GFR ( Amer) 40.4 Est GFR (Non-Af Amer) 33.4 BUN/Creatinine Ratio 19.9 Glucose 102 H Calcium 7.4 L Phosphorus 3.2 Magnesium 1.8 L Total Bilirubin 0.90 AST 27 ALT 18 Alkaline Phosphatase 127 H Total Protein 4.7 L Albumin 1.9 L Globulin 2.8 Albumin/Globulin Ratio 0.7 L Blood Type Antibody Screen Crossmatch Microbiology and Other Data: Microbiology 06/05/18 12:00 Stool Stool Occult Blood (SUJEY) - Final Assess/Plan/Problems-Billing Assessment: 78 yr old male PMH cryptogenic cirrhosis s/p TIPS complicated with mi with four stents 02/2018 has been transfusion dept since 02/2018. he has recent stents placed and has to be on asa and plavix for his cardiac need. pt has been getting weekly transfusion and iv iron ---> hx of dvt s/p ivc filter placed 2017 - Patient Problems (1) Acute blood loss anemia Current Visit: Yes Status: Acute Code(s): D62 - ACUTE POSTHEMORRHAGIC ANEMIA SNOMED Code(s): 013335561 Comment: -S/P 4 units of PRBC transfusion -Due to known pedunculated colonic polyps in setting of needed DAPT -appreciate recs from Dr. Ruiz. 1 more unit of blood. f/u with Dr. Looney at [place] - continue ppi (2) Ascites Current Visit: Yes Status: Acute Code(s): R18.8 - OTHER ASCITES SNOMED Code(s): 522150648 Comment: -on low sodium diet, clear liquid to better monitor stool color and quality -resume Lasix at 20 and reduce Spirinolactone to 50 (3) CAD (coronary artery disease) Current Visit: Yes Status: Acute Code(s): I25.10 - ATHSCL HEART DISEASE OF [place] CORONARY ARTERY W/O ANG PCTRS SNOMED Code(s): 20237720 Comment: -Continue ASA, Plavix, and statins (4) Chronic renal disease, stage 4, severely decreased glomerular filtration rate (GFR) between 15-29 mL/min/1.73 square meter Current Visit: Yes Status: Acute Code(s): N18.4 - CHRONIC KIDNEY DISEASE, STAGE 4 (SEVERE) SNOMED Code(s): 283307502 Comment: moniter (5) Cryptogenic cirrhosis Current Visit: Yes Status: Acute Code(s): K74.69 - OTHER CIRRHOSIS OF LIVER SNOMED Code(s): 07104067 Comment: -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
[2018-06-06 05:39] LABS: Hematocrit 24 % (42-52); Hemoglobin 8.5 g/dl (14.0-18.0)
[2018-06-06] MEDS: CMCS: Pantoprazole TAB (NF) 40 MG TAB PO SCH (08:12)
[2018-06-06] MEDS: Docusate CAP* 100 MG PO SCH (08:12)
[2018-06-06] MEDS: Aspirin EC TAB* 81 MG TAB.EC PO SCH (08:12)
[2018-06-06] MEDS: Atorvastatin* 80 MG TAB PO SCH (08:12)
[2018-06-06] MEDS: Clopidogrel TAB* 75 MG PO SCH (08:12)
[2018-06-06] MEDS ORDERED: Furosemide TAB* 20 MG PO SCH (09:00)
[2018-06-06] MEDS ORDERED: Spironolactone TAB* 25 MG PO SCH (09:00)
--- NOTE | 2018-06-06 10:31 | PN ---
Progress Note - Progress Note Date of Service: 06/06/18 SOAP: Subjective: []Admitted with recurrent/persistent GI bleed, known large polyp. 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 Followed by oncology d/t cytopenias and persistent ascites. Case discussed with covering hospitalist, Dr. Edwards, and ultrasonic seaming machine operator, Dr. Olmedo. Medications: Aspirin (Aspirin Ec Tab*) 81 mg PO DAILY [facility] Last Admin: 06/06/18 08:12 Dose: 81 mg Atorvastatin Calcium (Lipitor*) 80 mg PO DAILY [facility] Last Admin: 06/06/18 08:12 Dose: 80 mg Clopidogrel Bisulfate (Plavix Tab*) 75 mg PO DAILY [facility] Last Admin: 06/06/18 08:12 Dose: 75 mg Docusate Sodium (Colace Cap*) 1 mg PO DAILY [facility] Last Admin: 06/06/18 08:12 Dose: Not Given Furosemide (Lasix Tab*) 20 mg PO DAILY [facility] Last Admin: 06/06/18 08:12 Dose: 20 mg Pantoprazole Sodium (Protonix Tab (Nf)) 40 mg PO DAILY [facility] Last Admin: 06/06/18 08:12 Dose: 40 mg Spironolactone (Aldactone Tab*) 50 mg PO DAILY [facility] Last Admin: 06/06/18 08:12 Dose: 50 mg Objective: [] Vital Signs Temp Pulse Resp BP Pulse Ox 98.3 F 77 18 104/45 99 06/06/18 08:05 06/06/18 08:05 06/06/18 08:05 06/06/18 08:05 06/06/18 08:05 A&Ox3, EOMI, neuro grossly non-focal HRR, S1S2, SR on tele with block LS clear +BS, abd. soft and slightly tender Laboratory Results - last 24 hr 06/03/18 06/06/18 20:17 05:17 Hgb 8.5 L Hct 24 L Blood Type A Positive Antibody Screen Negative Crossmatch See Detail Assessment: []Complicated 78 yo m with history of cryptogenic ascites s/p TIPs and recent MT s/p stent placement on dual anti-platelet therapy with persistent GI bleed from known polyp. Plan to pursue proceed in [place] pending concern secondary to anti-platelet therapy, however case discussed with local ultrasonic seaming machine operator who feels he is cleared from cardiology stand point with recommendation for holding plavix x7 days prior to procedure and resume DEONDRE post procedure. Plan: []1. GI bleed: intervention with GI team in [place] pending, likely d/c today per hospitalist - no restrictions from hematology stand point - plavix as above per cardiology (goal of limited holding d/t risk of re- occlusion) - transfuse as needed managed as outpatient with hem., repeat CBC Friday 06/08 - weekly Venofer 400 mg IV due 06/04, will give today prior to d/c Appreciative of hospitalist management, hem to cont. to follow closely
[2018-06-06] MEDS ORDERED: IRON SUCROSE IVPB ONE (11:30)
[2018-06-06] MEDS ORDERED: NS 0.9% IVPB ONE (11:30)
[2018-06-06 11:48] VITALS: BP 105/43
[2018-06-06] MEDS ORDERED: Ondansetron INJ* 2 MG/ML VIAL IV PRN (14:19)
--- NOTE | 2018-06-07 22:38 | DS ---
DISCHARGE SUMMARY: DATE OF ADMISSION: 06/03/18 DATE OF DISCHARGE: 06/06/18 ADMITTING PROVIDER: Irma Ruiz MD ATTENDING PHYSICIAN ON THE DAY OF DISCHARGE: Luis Manuel Edwards MD CONSULTING GASTROENTEROLOGISTS: Dr. Ruiz; seamstress fitter at [facility], Dr. Herman Looney. OUTPATIENT PRIVACY ANALYST/ONCOLOGIST: Dr. Guillen. PRIMARY CARE PROVIDER: Dr. Garcia. CHIEF COMPLAINT: Fatigue and continued blood per rectum. PRINCIPAL DIAGNOSES: Symptomatic anemia secondary to acute blood loss in the setting of known bleeding colonic polyps and in the setting of dual- antiplatelet therapy in the setting of recent drug-eluting stent (the patient has been transfusion dependent and receiving iron transfusions weekly); cryptogenic cirrhosis with ascites. 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 Please see H and P of Dr. Irma Ruiz for full details. He presented with hemoglobin of 5.7 and fatigue, did not feel like he could wait further for his next transfusion clinic appointment. He is referred to hospitalist service for admission. In the ED, his hemoglobin was 5.4, hematocrit 16, he got 4 units of packed red blood cells. Gastroenterology service was consulted. He had recently also had a video capsule endoscopy as an outpatient, which per Dr. Ruiz's report did not show any other GI lesions other than a known pedunculated colonic polyps that have been suspected to be the source of bleeding. He would later attest that his stools are largely very black, but he has had some streaks of red blood that he attributes to hemorrhoidal bleeding. Dr. Ruiz's plan was to call Dr. Looney GI, at [place] to see if there are any other changes in the management of this patient, as he has been admitted twice now in the last month with similar presentation. The hematology/oncology service, nurse practitioner , Martha Mancilla, also saw the patient and recommended Venofer infusion, the day of discharge, 400 mg IV. He got units the night prior after Dr. Ruiz' s recommendation given his hemoglobin at that time was 7.8 and up to 8.5 on the day of discharge. Case was also curbside discussed with his local tankage supervisor, Dr. Olmedo, who has recommended it is okay from a cardiology standpoint to hold the Plavix 7 days prior to GI procedure if necessary. The patient was arranged to have a followup CBC drawn in the hematology/oncology office 2 days after discharge on 06/08/18. Of note, his creatinine varied between 2.0 to 1.96 on discharge. His fecal occult blood was positive. DISCHARGE MEDICATIONS: Include: 1. Tylenol 650 mg p.o. 6 hours p.r.n. 2. Aspirin 81 mg daily. 3. Plavix 75 mg daily. 4. Docusate 1 mg p.o. daily. 5. Lasix 40 mg daily. 6. Metoprolol succinate 12.5 mg p.o. b.i.d. 7. Protonix 40 mg p.o. daily (new). 8. Rosuvastatin 40 mg daily. 9. Spironolactone 100 mg p.o. daily. FOLLOWUP: The patient is to follow up with Martha Mancilla on 06/13/18 at 2:10 p.m., Dr. Edwin Guillen on 06/08/18 at 12:30 p.m., Dr. Guillen's office for lab work on 06/08/18 at 9 a.m., and then another transfusion clinic appointment on 06/11/18 at 8:30 p.m. He is also to call his primary care provider, Dr. Franklyn Garcia, and encouraged to visit within the next 7 days. He continues to be transfusion of packed red blood cell and IV iron dependent. TIME SPENT: On discharge 40 minutes. [id number]/[facility] #: [id number] GALO
== END 2018-06-06 15:55 | disposition home or self-care (01) | DRG 812 ==
LOC: ED 19:01 → MEDTELE 23:09
PROVIDERS: ADMIT Internal Medicine; ATTEND Internal Medicine
PROC: 30233N1 Transfusion of Nonautologous Red Blood Cells into Peripheral Vein, Percutaneous Approach (ICD-10-PCS; principal; 2018-06-04)
DX: D62 Acute posthemorrhagic anemia (principal); K92.2 Gastrointestinal hemorrhage, unspecified; R18.8 Other ascites; N18.4 Chronic kidney disease, stage 4 (severe); I49.5 Sick sinus syndrome; D47.2 Monoclonal gammopathy; I11.9 Hypertensive heart disease without heart failure; K74.69 Other cirrhosis of liver; I25.10 Atherosclerotic heart disease of native coronary artery without angina pectoris; K63.5 Polyp of colon; G47.33 Obstructive sleep apnea (adult) (pediatric); Z95.5 Presence of coronary angioplasty implant and graft; Z95.0 Presence of cardiac pacemaker; Z86.718 Personal history of other venous thrombosis and embolism; Z85.51 Personal history of malignant neoplasm of bladder; Z80.52 Family history of malignant neoplasm of bladder; Z79.02 Long term (current) use of antithrombotics/antiplatelets; Z79.82 Long term (current) use of aspirin; Z79.899 Other long term (current) drug therapy
CPT/HCPCS: 36415; 80053; 82270; 83735; 84100; 84484; 85014; 85018; 85025; 85027; 85610; 85730; 86850; 86900; 86901; 86922; 99284; A9270-GY; J1756; J1940; J2405; P9040

== ENCOUNTER 2018-06-09 23:02 | Inpatient (IN) | payer MEDICARE ==
--- NOTE | 2018-06-09 23:52 | ED ---
Altered Mental Status - HPI Summary HPI Summary: Pt is a 78 year old M presenting to the ED with a chief complaint of altered mental status. Onset yesterday morning, his mentation has been declining. He is confused, feels like he is hallucinating, has tremors, is very dizzy, sleeps a lot, and occasionally feels as though he will pass out. The pt denies pain. The pt has liver cirrhosis, polyps on his colon, and has had a TIPS procedure, and just left [facility] three days ago. When he left [facility] from his blood transfusion, his stool was dark, and it still is. He had a stent placed in september that collapsed so he replaced it in February. He has polyps on his colon which they think is where the bleeding is coming from. - History Of Current Complaint Chief Complaint: EDAltMentalStatus Stated Complaint: CONFUSED/WEAKNESS Time Seen by Provider: 06/09/18 23:29 Hx Obtained From: Family/Pot Room Tapper Hx From Patient Unobtainable Due To: Altered Mental Status Onset/Duration: Still Present, Suddenly Severity Initially: Moderate Severity Currently: Moderate Character: Confusion Aggravating Factor(s): Unknown Alleviating Factor(s): Nothing Associated Signs And Symptoms: Positive: Dizziness - Allergies/Home Medications Allergies/Adverse Reactions: Allergies Allergy/AdvReac Type Severity Reaction Status Date / Time Adhesive Tape Allergy Unknown Verified 06/09/18 23:12 Reaction Details horse dander Allergy Swelling Verified 06/09/18 23:12 Horse/Equine Containing Allergy Hives Verified 06/09/18 23:12 Products latex Allergy Unknown Verified 06/09/18 23:12 Reaction Details midodrine Allergy Unknown Verified 06/09/18 23:12 Reaction Details HORSE SERUM Allergy Severe Swelling, Uncoded 06/09/18 23:12 hives PMH/Surg Hx/FS Hx/Imm Hx Previously Healthy: No Endocrine/Hematology History: Reports: Hx Anticoagulant Therapy, Hx Anemia, Hx Unexplained Bleeding Cardiovascular History: Reports: Hx Angina, Hx Coronary Artery Disease, Hx Hypercholesterolemia, Hx Hypertension, Hx Myocardial Infarction, Hx Pacemaker/ ICD - pacemaker Respiratory History: Reports: Hx Sleep Apnea - current CPAP user GI History: Reports: Hx Cirrhosis, Hx Gastroesophageal Reflux Disease, Hx Irritable Bowel, Other GI Disorders - brijesh'y, jessika'y History: Reports: Other Problems/Disorders - weak bladder s/p bladder cancer Musculoskeletal History: Reports: Other Musculoskeletal History - hammer toes, both feet, had sx. Denies: Hx Rheumatoid Arthritis Sensory History: Reports: Hx Contacts or Glasses Denies: Hx Deafness, Hx Hearing Aid, Other Sensory Impairments Opthamlomology History: Reports: Hx Contacts or Glasses Denies: Other Sensory Impairments Neurological History: Denies: Hx Headaches, Hx Seizures, Hx Transient Ischemic Attacks (TIA) Psychiatric History: Denies: Hx Autism, Hx Schizophrenia - Cancer History Cancer Type, Location and Year: bladder cancer Hx Chemotherapy: No - Surgical History Surgery Procedure, Year, and Place: cataract surgery with lens implants bilat eyes. hammer toe repair bilat feet. appendectomy. cholecystectomy Hx Anesthesia Reactions: No - Immunization History Date of Tetanus Vaccine: unk Date of Influenza Vaccine: fall 2017 Infectious Disease History: No Infectious Disease History: Denies: Traveled Outside the [place] in Last 30 Days - Family History Known Family History: Positive: Cardiac Disease Negative: Hypertension, Diabetes - Social History Alcohol Use: Occasionally Alcohol Amount: none since August when issues started Substance Use Type: Reports: None Hx Tobacco Use: No Smoking Status (MU): Former Smoker Type: Cigarettes Have You Smoked in the Last Year: No Review of Systems Negative: Fever Positive: other - dark stool Neurological: Other - confusion, hallucinating, dizzy All Other Systems Reviewed And Are Negative: Yes Physical Exam - Summary Physical Exam Summary: VITAL SIGNS: Reviewed. GENERAL: Patient is a well-developed and nourished male who is lying comfortable in the stretcher. Patient is not in any acute respiratory distress. HEAD AND FACE: No signs of trauma. No ecchymosis, hematomas or skull depressions. No sinus tenderness. EYES: PERRLA, EOMI x 2, No injected conjunctiva, no nystagmus. Mild icteric sclera. EARS: Hearing grossly intact. Ear canals and tympanic membranes are within normal limits. MOUTH: Oropharynx within normal limits. NECK: Supple, trachea is midline, no adenopathy, no JVD, no carotid bruit, no c- spine tenderness, neck with full ROM. CHEST: Symmetric, no tenderness at palpation LUNGS: Clear to auscultation bilaterally. No wheezing or crackles. CVS: Regular rate and rhythm, S1 and S2 present, no murmurs or gallops appreciated. ABDOMEN: Soft, non-tender. No signs of distention. No rebound no guarding, and no masses palpated. Bowel sounds are normal. EXTREMITIES: FROM in all major joints, no cyanosis or clubbing. Trace pitting edema bilaterally. NEURO: Alert and oriented x 3. Somewhat lethargic, per family he has been sleeping a lot. SKIN: Dry and warm Triage Information Reviewed: Yes Vital Signs On Initial Exam: Initial Vitals Temp Pulse Resp BP Pulse Ox 97.9 F 72 16 105/39 100 06/09/18 23:05 06/09/18 23:05 06/09/18 23:05 06/09/18 23:05 06/09/18 23:05 Vital Signs Reviewed: Yes Diagnostics - Vital Signs Vital Signs Temp Pulse Resp BP Pulse Ox 06/09/18 23:05 97.9 F 72 16 105/39 100 - Laboratory Result Diagrams: 06/09/18 23:54 06/09/18 23:54 Lab Statement: Any lab studies that have been ordered have been reviewed, and results considered in the medical decision making process. - Radiology Chest XRay Radiology Interpretation Completed By: ED Physician Summary of Radiographic Findings: Bilateral venous condition. Pending official radiology report. - CT Brain CT CT Interpretation Completed By: Radiologist Summary of CT Findings: No acute findings. ED physician has reviewed this report. - EKG 0022 Cardiac Rate: NL - 64bpm EKG Rhythm: Sinus Rhythm ST Segment: Normal Summary of EKG Findings: AV-paced rhythm. Altered Mental Statu Course/Dx - Course Course Of Treatment: Pt is a 78 y/o M presenting to the ED with a chief complaint of confusion. Since yesterday morning, the pt states he has been hallucinating, confused, dizzy, sleeping a lot, and feels occasionally like he may pass out. The pt has liver cirrhosis, polyps on his colon, TIPS procedure in the past, as well as dark stool. - Diagnoses Provider Diagnoses: Hepatic encephalopathy Discharge - Sign-Out/Discharge Documenting (check all that apply): Patient Departure - admit - Discharge Plan Condition: Stable Disposition: ADMITTED TO [facility] Referrals: Franklyn Johnston MD [Primary Care Provider] - - Attestation Statements Document Initiated by Scribe: Yes Documenting Scribe: Nichelle Villagran Provider For Whom Scribe is Documenting (Include Credential): Kimo Schmidt MD. Scribe Attestation: I, Nichelle O'Mic, scribed for Kimo Schmidt MD. on 06/10/18 at 0156. Consult Consult: 0130 - Contacted hospitalist about admission to [facility]. Pt will be admitted with a diagnosis of hepatic encephalopathy.
[2018-06-10 00:22] LABS: ABS Basophils 0 10^3/ul (0-0.2); ABS Eosinophils 0 10^3/ul (0-0.6); ABS Lymphocytes 0.6 10^3/ul (1.0-4.8); ABS Monocytes 0.3 10^3/ul (0-0.8); ABS Neutrophils 2.3 10^3/ul (1.5-7.7); ABS Nucleated RBC 0 10^3/ul; Eosinophil % 1.2 % (0-6); Hematocrit 25 % (42-52); Hemoglobin 8.6 g/dl (14.0-18.0); Lymphocyte % 17.7 % (25-47); Mean Corpuscular HGB Conc 34 g/dl (31-36); Mean Corpuscular Hemoglobin 32 pg (27-31); Mean Corpuscular Volume 93 fL (80-94); Mean Platelet Volume 6.9 fL (7.4-10.4); Nucleated Red Blood Cells % 0; Platelet Count 185 10^3/ul (150-450); Red Blood Count 2.69 10^6/ul (4.00-5.40); Red Cell Distribution Width 21 % (10.5-15); White Blood Count 3.1 10^3/ul (3.5-10.8)
[2018-06-10 00:34] LABS: INR 0.97 (0.77-1.02)
[2018-06-10 00:42] LABS: EGFR Non-African American 33.8 (>60)
--- NOTE | 2018-06-10 02:22 | ADMNOTE ---
Subjective Date of Service: 06/10/18 Interval History: code status full source pt and this is admission h/p hpi this is a 78 yr old wm with cryptogenic cirrhosis cad with recent mi and stents placment has been transfusion dep ( weekly iv prbc/iron ) was brought in by after he was found to have been sleeping the whole day + asking more questions than answering for one day hx. 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 head ct was neg. he does have asterixis but got his lactulose 45 cc close to his departure from er to floor. phx cad s/p mi ---> four stents placed 02/2018 cryptogenic cirrhosis with ascites s/p tips procedure done 02/2018 chronic anemia transfusion and iron dep recurrent gib due to colon polyps s/p egd and colonscopy and small bowel encapsulated study all inconclusive reg precise site of gib chronic kidney dz MGUS howie hx of sick sinus syndrome s/p ppm hx of bladder cancer hx of colon polyps as the possible source of bleeding hx of dvt of rle s/p ivc filter pshx s/p tips 02/2018 s/p 4 cardiac stents placed 02/2018 s/p cholecystecomy s/p appy s/p ppm social hx no cig now formal cig smoker occ etoh comes from home lives with fhx father + bladder ca Review of Systems - Measurements Intake and Output: Intake and Output Last 24 Hours 06/07/18 06/08/18 06/09/18 06/10/18 06:59 06:59 06:59 06:59 Weight 205 lb pertinent as per hpi Objective Active Medications: Folic Acid (Folvite Tab*) 1 mg PO DAILY [facility] Sodium Chloride (Ns 0.9% 1000 Ml*) 1,000 mls @ 75 mls/hr IV PER RATE [facility] Lactulose (Lactulose*) 30 ml PO QID [facility] Thiamine HCl (Vitamin B-1 Tab*) 100 mg PO DAILY [facility] Vital Signs - 8 hr 06/09/18 23:05 Temperature 97.9 F Pulse Rate 72 Respiratory 16 Rate Blood Pressure 105/39 (mmHg) O2 Sat by Pulse 100 Oximetry Oxygen Devices in Use Now: None Appearance: nad Eyes: PERRLA Ears/Nose/Mouth/Throat: NL Teeth, Lips, Gums, Clear Oropharnyx Neck: NL Appearance and Movements; NL JVP, Trachea Midline, No Thyroid Enlargement, Masses Respiratory: Symmetrical Chest Expansion and Respiratory Effort, - - decreased b /s at base b/l but no wheezing rales or rochi Cardiovascular: NL Sounds; No Murmurs; No JVD Abdominal: - - soft nt distended with ascites Extremities: - - able to raise ue and le against gravity 3+ pedal edema Skin: No Rash or Ulcers Neurological: - - aao times three non focal but + asteraxis Result Diagrams: 06/10/18 06:48 06/10/18 06:48 EKG Data: ns no acute st t change Assess/Plan/Problems-Billing Assessment: this is a 78 yr old wm with 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 chronic gib due to colon polyp has become transfusion/iv iron dependant presented to er with acute ms change his ammonia level >250 pt is aao times three and still recognize this poem writer but started to have asteraxis - Patient Problems (1) CAD (coronary artery disease) Current Visit: No Status: Acute Code(s): I25.10 - ATHSCL HEART DISEASE OF [place] CORONARY ARTERY W/O ANG PCTRS SNOMED Code(s): 47894721 Comment: -Continue ASA, Plavix, and statins (2) Hepatic encephalopathy Current Visit: Yes Status: Acute Code(s): K72.90 - HEPATIC FAILURE, UNSPECIFIED WITHOUT COMA SNOMED Code(s): 64297549 Comment: ammonia >250 and has asterxis but pt has stable vital and still recognizs this poem writer lactulose 45 cc given from er will moniter neuro signs q 4 hr lactulose 30 cc qid target to have bm > 4 episodes daily repeat ammonia ordered for am clear for now gentle ivf ck ua to r/o uti as a cause of his decompensation (3) Cirrhosis, cryptogenic Current Visit: Yes Status: Acute Code(s): K74.69 - OTHER CIRRHOSIS OF LIVER SNOMED Code(s): 25652526 Comment: continue outpt meds (4) Chronic anemia Current Visit: Yes Status: Acute Code(s): D64.9 - ANEMIA, UNSPECIFIED SNOMED Code(s): 675602234 Comment: blood loss but could not stop asa plavix hg baseline is 8.5-9 stable now moniter (5) Stage 4 chronic kidney disease Current Visit: Yes Status: Resolved Code(s): N18.4 - CHRONIC KIDNEY DISEASE , STAGE 4 (SEVERE) SNOMED Code(s): 294371682 Comment: stable continue current mgt and moniter input and outpt and lytes (6) DVT (deep venous thrombosis) Current Visit: Yes Status: Acute Code(s): I82.409 - ACUTE EMBOLISM AND THOMBOS UNSP DEEP VN UNSP LOWER EXTREMITY SNOMED Code(s): 945697001 Comment: s/p ivc filter placement not in resp distress not a candidate for any anticoag moniter his resp symptoms
[2018-06-10] MEDS: NS 0.9% 1000 ML* 1,000 ML IV SCH (05:33)
[2018-06-10 07:08] LABS: ABS Basophils 0 10^3/ul (0-0.2); ABS Eosinophils 0.1 10^3/ul (0-0.6); ABS Lymphocytes 1.4 10^3/ul (1.0-4.8); ABS Monocytes 0.3 10^3/ul (0-0.8); ABS Neutrophils 2.9 10^3/ul (1.5-7.7); ABS Nucleated RBC 0 10^3/ul; Eosinophil % 1.8 % (0-6); Hematocrit 29 % (42-52); Hemoglobin 9.5 g/dl (14.0-18.0); Lymphocyte % 28.8 % (25-47); Mean Corpuscular HGB Conc 33 g/dl (31-36); Mean Corpuscular Hemoglobin 31 pg (27-31); Mean Corpuscular Volume 94 fL (80-94); Nucleated Red Blood Cells % 0.1; Platelet Count 237 10^3/ul (150-450); Red Blood Count 3.04 10^6/ul (4.00-5.40); Red Cell Distribution Width 22 % (10.5-15); White Blood Count 4.8 10^3/ul (3.5-10.8)
[2018-06-10 07:14] LABS: INR 0.99 (0.77-1.02)
[2018-06-10 07:24] LABS: EGFR Non-African American 34.2 (>60)
[2018-06-10] MEDS ORDERED: Magnesium Sulfate 2 GM IV* 2 GM/50 ML BAG IVPB ONE (08:24)
[2018-06-10] MEDS: Folic Acid TAB* 1 MG PO SCH (08:49)
[2018-06-10] MEDS: Thiamine TAB* 100 MG TAB PO SCH (08:49)
[2018-06-10] MEDS: RiFAXimin* 550 MG TAB PO SCH ×2 (09:23→21:35)
[2018-06-10] MEDS: Albumin Human 25%* 50 GM/200 ML BTL IV SCH ×2 (11:05→16:58)
--- NOTE | 2018-06-10 16:44 | PN ---
Subjective Date of Service: 06/10/18 Interval History: Pt seen and examined. Meds and labs reviewed. CC: Confusion ROS: Denied VIEYRA/dizziness, F/C, N/V, CP, SOB, increased cough, sputum production , abd pain, diarrhea, constipation, dysuria, myalgias, arthralgias, throat pain , and new skin lesions. The rest of the 14 point ROS are unremarkable. PHYSICAL EXAM: GEN APPEARANCE: Awake, not in acute distress, somewhat confused but responds to questions appropriately HEENT: NC/AT, PERRLA, moist oral mucosa, (-) throat erythema NECK: Soft, supple, (-) cervical LAD, (-)JVD HEART: S1S2 WNL, RRR, No MRG CHEST: CTA, BL, GAE, No W/R/R ABD: Soft, distended/NT, NABS 4x Q EXT: No C/C/E SKIN: Warm to touch PSYCH: No active psychosis, hallucinations, depression, SI/HI NEURO: (+)Asterexis Objective Active Medications: Folic Acid (Folvite Tab*) 1 mg PO DAILY [facility] Last Admin: 06/10/18 08:49 Dose: 1 mg Sodium Chloride (Ns 0.9% 1000 Ml*) 1,000 mls @ 75 mls/hr IV PER RATE [facility] Last Admin: 06/10/18 05:33 Dose: 75 mls/hr Albumin Human (Albumin Human 25%*) 50 gm in 200 mls @ 0 mls/hr IV Q8H [facility] Stop: 06/11/18 00:31 Last Admin: 06/10/18 11:05 Dose: 60 mls/hr Lactulose (Lactulose*) 30 ml PO QID [facility] Last Admin: 06/10/18 13:41 Dose: 30 ml Rifaximin (Xifaxan*) 550 mg PO BID [facility] Last Admin: 06/10/18 09:23 Dose: 550 mg Thiamine HCl (Vitamin B-1 Tab*) 100 mg PO DAILY [facility] Last Admin: 06/10/18 08:49 Dose: 100 mg Vital Signs - 8 hr 06/10/18 06/10/18 11:06 15:43 Temperature 97.6 F 97.7 F Pulse Rate 87 93 Respiratory 16 18 Rate Blood Pressure 97/36 100/34 (mmHg) O2 Sat by Pulse 100 100 Oximetry Oxygen Devices in Use Now: None Result Diagrams: 06/10/18 06:48 06/10/18 06:48 EKG Data: ns no acute st t change Assess/Plan/Problems-Billing Assessment: this is a 78 yr old wm with 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 chronic gib due to colon polyp has become transfusion/iv iron dependant presented to er with acute ms change his ammonia level >250 pt is aao times three and 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 but started to have asteraxis - Patient Problems (1) Hepatic encephalopathy Current Visit: Yes Status: Acute Code(s): K72.90 - HEPATIC FAILURE, UNSPECIFIED WITHOUT COMA SNOMED Code(s): 02708524 Comment: -Explained to pt and at bedside that TIPS unfortunately increases risks for hepatic encephalopathy -Agree with current lactulose dosing -Will place pt on Xifaxan -Will repeat ammonia levels in AM -Awaiting results of U/Awill touch base with RN (2) CAD (coronary artery disease) Current Visit: No Status: Acute Code(s): I25.10 - ATHSCL HEART DISEASE OF [place] CORONARY ARTERY W/O ANG PCTRS SNOMED Code(s): 78737686 Comment: -Continue ASA, Plavix, and statins (3) Hypotension Current Visit: No Status: Acute Comment: -Mild with acceptable MAP -D/C IVF and placed on IV Albumin as ordered -Awaiting on U/A -Will await results of culture -Abd U/S in AM (4) Cirrhosis, cryptogenic Current Visit: Yes Status: Acute Code(s): K74.69 - OTHER CIRRHOSIS OF LIVER SNOMED Code(s): 79951518 Comment: -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 Miller office -Continue watchful waiting of H&H (7) CKD (chronic kidney disease) Current Visit: No Status: Chronic Code(s): N18.9 - CHRONIC KIDNEY DISEASE, UNSPECIFIED SNOMED Code(s): 605390349 Comment: -At baseline -Continue watchful waiting (8) DVT (deep venous thrombosis) Current Visit: Yes Status: Acute Code(s): I82.409 - ACUTE EMBOLISM AND THOMBOS UNSP DEEP VN UNSP LOWER EXTREMITY SNOMED Code(s): 033607767 Comment: s/p ivc filter placement not in resp distress not a candidate for any anticoag moniter his resp symptoms Status and Disposition: -As above -For PT eval
[2018-06-10] MEDS ORDERED: Ondansetron INJ* 2 MG/ML VIAL IV SCH (20:30)
[2018-06-10] MEDS: Ondansetron INJ* 2 MG/ML VIAL IV SCH (20:40)
[2018-06-10 20:45] LABS: Urine Appearance Clear; Urine Blood Negative (Negative); Urine Color Yellow; Urine Ketones Negative (Negative); Urine Protein Negative (Negative); Urine Specific Gravity 1.015 (1.010-1.030); Urine Urobilinogen Negative (Negative)
[2018-06-11] MEDS: Albumin Human 25%* 50 GM/200 ML BTL IV SCH (00:47)
[2018-06-11 05:51] LABS: Hematocrit 21 % (42-52); Hemoglobin 6.8 g/dl (14.0-18.0); Mean Corpuscular HGB Conc 33 g/dl (31-36); Mean Corpuscular Hemoglobin 31 pg (27-31); Mean Corpuscular Volume 95 fL (80-94); Mean Platelet Volume 7.3 fL (7.4-10.4); Platelet Count 112 10^3/ul (150-450); Red Blood Count 2.16 10^6/ul (4.00-5.40); Red Cell Distribution Width 22 % (10.5-15); White Blood Count 2.8 10^3/ul (3.5-10.8)
[2018-06-11 05:55] LABS: INR 1.1 (0.77-1.02)
[2018-06-11 06:10] LABS: EGFR Non-African American 37.1 (>60)
[2018-06-11] MEDS: Ondansetron INJ* 2 MG/ML VIAL IV SCH ×4 (08:17→20:45)
[2018-06-11] MEDS: Folic Acid TAB* 1 MG PO SCH (09:04)
[2018-06-11] MEDS: RiFAXimin* 550 MG TAB PO SCH ×2 (09:04→21:28)
[2018-06-11] MEDS: Thiamine TAB* 100 MG TAB PO SCH (09:05)
[2018-06-11] MEDS: Albumin Human 25%* 25 GM/100 ML BTL IV SCH ×2 (11:21→19:26)
[2018-06-11] MEDS: NS 0.9% 1000 ML* 1,000 ML IV SCH (11:43)
--- NOTE | 2018-06-11 16:45 | PN ---
Subjective Date of Service: 06/11/18 Interval History: Pt seen and examined. Meds and labs reviewed. CC: N/A ROS: Denied VIEYRA/dizziness, F/C, N/V, CP, SOB, increased cough, sputum production , abd pain, diarrhea, constipation, dysuria, myalgias, arthralgias, throat pain , and new skin lesions. The rest of the 14 point ROS are unremarkable. PHYSICAL EXAM: GEN APPEARANCE: Awake, not in acute distress, somewhat confused but responds to questions appropriately, oriented x 3 HEENT: NC/AT, PERRLA, moist oral mucosa, (-) throat erythema NECK: Soft, supple, (-) cervical LAD, (-)JVD HEART: S1S2 WNL, RRR, No MRG CHEST: CTA, BL, GAE, No W/R/R ABD: Soft, distended/NT, NABS 4x Q EXT: No C/C/E SKIN: Warm to touch PSYCH: No active psychosis, hallucinations, depression, SI/HI NEURO: (+)Asterexis, improving Objective Active Medications: Folic Acid (Folvite Tab*) 1 mg PO DAILY [facility] Last Admin: 06/11/18 09:04 Dose: 1 mg Sodium Chloride (Ns 0.9% 1000 Ml*) 1,000 mls @ 75 mls/hr IV PER RATE [facility] Last Admin: 06/11/18 11:43 Dose: 75 mls/hr Albumin Human (Albumin Human 25%*) 25 gm in 100 mls @ 0 mls/hr IV Q8H [facility] Stop: 06/12/18 01:01 Last Admin: 06/11/18 11:21 Dose: 60 mls/hr Lactulose (Lactulose*) 30 ml PO QID [facility] Last Admin: 06/11/18 13:36 Dose: 30 ml Ondansetron HCl (Zofran Inj*) 4 mg IV QID [facility] Last Admin: 06/11/18 16:40 Dose: 4 mg Rifaximin (Xifaxan*) 550 mg PO BID [facility] Last Admin: 06/11/18 09:04 Dose: 550 mg Thiamine HCl (Vitamin B-1 Tab*) 100 mg PO DAILY [facility] Last Admin: 06/11/18 09:05 Dose: 100 mg Vital Signs - 8 hr 06/11/18 06/11/18 06/11/18 11:30 11:45 12:50 Temperature 98.3 F 98.5 F 99.4 F Pulse Rate 78 81 71 Respiratory 16 16 16 Rate Blood Pressure 90/31 95/35 94/35 (mmHg) O2 Sat by Pulse 100 100 100 Oximetry 06/11/18 15:29 Temperature 99.2 F Pulse Rate 81 Respiratory Rate Blood Pressure (mmHg) O2 Sat by Pulse 100 Oximetry Oxygen Devices in Use Now: None Result Diagrams: 06/11/18 05:41 06/11/18 05:41 Microbiology and Other Data: Microbiology 06/09/18 23:54 Aerobic Blood Culture - Preliminary Blood Venous No Growth Day 1 Anaerobic Blood Culture - Preliminary No Growth Day 1 06/09/18 23:54 Aerobic Blood Culture - Preliminary Blood Venous No Growth Day 1 Anaerobic Blood Culture - Preliminary No Growth Day 1 EKG Data: ns no acute st t change Assess/Plan/Problems-Billing Assessment: this is a 78 yr old wm with 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 chronic gib due to colon polyp has become transfusion/iv iron dependant presented to er with acute ms change his ammonia level >250 pt is aao times three and still recognize 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 but started to have asteraxis - Patient Problems (1) Hepatic encephalopathy Current Visit: Yes Status: Acute Code(s): K72.90 - HEPATIC FAILURE, UNSPECIFIED WITHOUT COMA SNOMED Code(s): 94512348 Comment: -Improving, however, still (+)asterexis -Explained to pt and at bedside that TIPS unfortunately increases risks for hepatic encephalopathy -Continue with Lactulose and Xifaxan -Will repeat ammonia levels improved -U/A unremarkable (2) CAD (coronary artery disease) Current Visit: No Status: Acute Code(s): I25.10 - ATHSCL HEART DISEASE OF [place] CORONARY ARTERY W/O ANG PCTRS SNOMED Code(s): 95519961 Comment: -Continue ASA, Plavix, and statins -Pt had recent placement of KASSY that precludes D/C of DAPT (3) Hypotension Current Visit: No Status: Acute Comment: -Previous history of abd compartment syndrome with ascites and improved immediately after paracentesis; also was found to have SBP 2 admissions back from this one -Requested diagnostic and therapeutic paracentesis from [facility] -Continue IV albumin infusion as orderedavoid IVFs as much as possible to avoid worsening of ascites -Continue low sodium diet -Mild with acceptable MAP -Awaiting on U/A -Will await results of culture -Abd U/S confirms moderate to large volume ascites (4) Ascites Current Visit: No Status: Acute Code(s): R18.8 - OTHER ASCITES SNOMED Code (s): 508502990 Comment: -Please see above discussion -Resume diuretics once BP improves---suspects it will after paracentesis similar to previous presentation -R/O SBP (5) Cirrhosis, cryptogenic Current Visit: Yes Status: Acute Code(s): K74.69 - OTHER CIRRHOSIS OF [place] SNOMED Code(s): 46498123 Comment: -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 Ruiz since he follows pt as outpatient and per family request---pt would like to be updated on conversation between Dr. Ruiz and Dr. Liu (GI from [place]) (6) Colonic polyp Current Visit: Yes Status: Acute Code(s): K63.5 - POLYP OF COLON SNOMED Code(s): 53653955 Comment: -Cause of known anemia that requires at least weekly transfusion at Dr. Miller office -Continue watchful waiting of H&H (7) CKD (chronic kidney disease) Current Visit: No Status: Chronic Code(s): N18.9 - CHRONIC KIDNEY DISEASE, UNSPECIFIED SNOMED Code(s): 185281388 Comment: -At baseline -Continue watchful waiting (8) DVT (deep venous thrombosis) Current Visit: Yes Status: Acute Code(s): I82.409 - ACUTE EMBOLISM AND THOMBOS UNSP DEEP VN UNSP LOWER EXTREMITY SNOMED Code(s): 016178445 Comment: s/p ivc filter placement not in resp distress not a candidate for any anticoag moniter his resp symptoms Status and Disposition: -As above -For PT evalactivity has been advanced so as not to preclude eval
[2018-06-12] MEDS: Albumin Human 25%* 25 GM/100 ML BTL IV SCH (00:56)
[2018-06-12] MEDS: NS 0.9% 1000 ML* 1,000 ML IV SCH (03:11)
--- NOTE | 2018-06-12 04:06 | PN ---
Progress Note - Progress Note Date of Service: 06/12/18 Note: Paged for SOB and wheezing. Will d/c IVFs and obtain CXR
[2018-06-12] MEDS ORDERED: Furosemide IV* 10 MG/ML VIAL (40 MG) IV ONE (04:56)
[2018-06-12 07:12] LABS: Hematocrit 28 % (42-52); Hemoglobin 9.5 g/dl (14.0-18.0); Mean Corpuscular HGB Conc 35 g/dl (31-36); Mean Corpuscular Hemoglobin 32 pg (27-31); Mean Corpuscular Volume 91 fL (80-94); Red Blood Count 3.01 10^6/ul (4.00-5.40); Red Cell Distribution Width 21 % (10.5-15); White Blood Count 2.9 10^3/ul (3.5-10.8)
[2018-06-12 07:18] LABS: EGFR Non-African American 38.6 (>60)
[2018-06-12 07:43] LABS: Mean Platelet Volume 7.3 fL (7.4-10.4); Platelet Count 98 10^3/ul (150-450)
--- NOTE | 2018-06-12 08:46 | CONS ---
AMENDED REPORT TO CORRECT ACCOUNT - ESIGNED BEFORE ADJUSTMENT ADDENDUM NOW INCLUDED ON THIS REPORT CC: Dr. Johnston * CONSULTATION REPORT: DATE OF CONSULT: 06/11/18 - ROOM #418 INDICATION: Cephalopathy and anemia. NARRATIVE: Mr. Ashford is a very pleasant 78-year-old gentleman well known to myself. He has a history of noncirrhotic portal hypertension resulting in significant and difficult to treat ascites. He underwent a TIPS procedure at [facility] approximately 2 months ago, which up until this point has seemed to be successful. Unfortunately, it seems over the past week, he has accumulated some increased fluid. He also had a myocardial infarction, requiring 4 cardiac stents to be placed approximately 6 weeks ago. He is on anticoagulation for that. He has been requiring significant transfusions over the past few weeks; 3 Mondays ago, he had 1 unit of blood; 2 Mondays ago, 4 units of blood; and then today he has had 2 units of blood so far. The patient was brought. He was just discharged from the hospital this past Monday for anemia. I have been in contact with his dba at [place] regarding his worsening anemia. We have been trying to manage his anemia conservatively. He did have a colonoscopy back in March, which revealed multiple large pedunculated polyps that were at least 3 to 4 on the left side of the colon, 3 on the right side of the colon. There was a very large one that seemed to be inflammatory and oozing out blood on the right side of the colon; biopsy of it did result in a fair amount of bleeding. It was felt that his continued anemia is due to these polyps. He did undergo an upper endoscopy also without any significant findings for his anemia and he underwent a small bowel capsule endoscopy, which then significantly revealed nonbleeding lymphangiectasias. His cardiologists have been in contact with at [facility]. They have recommended to not stop his anticoagulation. Unfortunately, we have not been able to remove any of his polyps due to the fact that we cannot stop his anticoagulation. His dba and medicinal chemist at [place] had hoped that he would simply require occasional blood transfusions in order to control his anemia and we could potentially wait the 6 months required to stop his anticoagulation for his cardiac stents; however, over the past 3 weeks, he has required increasing amounts of blood transfusions. I did speak with the transplant dba last week, who recommended that I simply go ahead and perform his colonoscopy and remove all the polyps and try hemostatic Endoloop techniques to prevent bleeding. My plan was to touch base with the patient's medicinal chemist at [facility] and then likely refer the patient to one of the advanced endoscopy gastroenterologists at [facility]. This was going to be communicated with the patient today and he was admitted to the hospital in the meantime. The patient's states that yesterday he was much more lethargic than normal. He was brought to the emergency room and was found to have worsening encephalopathy. He denies any fevers or chills. He has not changed his medicines and all his stools have been black; however, no overt and ronald blood. He has received lactulose. He did have an abdominal ultrasound, which revealed moderate- to-large ascites. There is no abdominal tenderness. This afternoon, he still does have some encephalopathy, but by reports, it is better. He is conversant, alert, oriented x3. The patient's brother and [id number] did come in from [place]. I had a very long conversation with them. Additionally, they wanted me to speak with a nephew of theirs who is a surgeon. I did have a very long discussion in the room on the telephone with that person. PAST MEDICAL HISTORY: He has significant coronary artery disease, portal hypertension, sleep apnea, sick sinus syndrome. PAST SURGICAL HISTORY: Surgeries include TIPS placement, cardiac stents, appendectomy, pacemaker, TURP, cholecystectomy, cataracts. MEDICATIONS: Upon admission include: 1. Aspirin. 2. Plavix. 3. Pantoprazole. ALLERGIES: MIDODRINE, LATEX. FAMILY HISTORY: No GI malignancies in the family. SOCIAL HISTORY: No alcohol. No tobacco. He is retired. REVIEW OF SYSTEMS: Twelve systems were reviewed and other than that mentioned in the HPI were unremarkable. PHYSICAL EXAM: Temperature is 99.2, blood pressure is 94/35, pulse is 81, respiratory rate of 100. General: Mildly ill-appearing male, lying flat in bed , receiving blood transfusion, alert, oriented x3, pleasant, and fluent. Neuro : Lethargic, positive asterixis. HEENT: Mucous membranes are dry without lesions, ulcers or exudate. Heart: Regular rate and rhythm. Lungs; Clear to auscultation bilaterally. No wheezes, rales or rhonchi. Abdomen: Distended, soft, positive bowel sounds, dull flanks. No rebound. No guarding. No tenderness. Skin is warm and dry. DIAGNOSTIC STUDIES/LAB DATA: Labs of note: White count is 2.8, hemoglobin is 6.8, platelets of 112. INR is 1.10. Sodium is 140. BUN is 31, down from 36. Creatinine is 1.79. Bilirubin is 1.10. Phosphorous is 118. Ammonia is 78, down from 165. He does have an abdominal ultrasound, which shows moderate to large amount of ascites. Unfortunately, no Doppler was performed to evaluate the TIPS. Brain CT shows no acute findings. He has blood cultures from 06/09/18, which are no growth to date. ASSESSMENT AND PLAN: This is a pleasant 78-year-old gentleman with 2 major issues. First is his encephalopathy. Unfortunately, this could be a complication of his transjugular intrahepatic portosystemic shunt. Transjugular intrahepatic portosystemic shunt has been in place for a number of weeks. It would be less common for encephalopathy to occur at this point; however, it needs to be considered additionally. There is no evidence of spontaneous bacterial peritonitis, but I would recommend a diagnostic paracentesis to rule that out. He is afebrile. No fever. No abdominal pain. He should be on prophylactic antibiotics to prevent spontaneous bacterial peritonitis. We also should consider an upper endoscopy to rule out the upper gastrointestinal bleed/ooze contributing to potential worsening encephalopathy. I do not see any other signs or symptoms of infection. I agree with the lactulose. He does appear to be improving. Additionally, he does have worsening ascites. I do not know if his transjugular intrahepatic portosystemic shunt is starting to occlude at this point. Unfortunately, he does have some issues with renal insufficiency. Thus, we are limited with diuretics. Second major issue is his anemia. At this point, he has required increased transfusions. Something needs to be done about his polyps at this point. I think the best thing for him right now would be to transfer him to [facility] for inpatient care. I think at that point, his encephalopathy and ascites can be addressed, but more importantly, his anemia and colon polyps can be definitely addressed. He will need to have his medicinal chemist on-board to weigh in whether or not his anticoagulation can be stopped or held, which they have already said no in the past, and then he will need a colonoscopy with attempted removal of his polyps, I think this should at a tertiary care center given his extremely high risk status, as he would be better served at an institution like [facility] versus remaining here to have that attempted. Greater than 1 hr spent with pt discussing issues, with brother and his , and a 20 min phone call with his surgeon nephew. ADDENDUM TO CONSULTATION REPORT DATE OF CONSULTATION: 06/11/2018. ADDENDUM: I have a discussion with Dr. Olmedo regarding the discussion she had with the patient's open end spinning operator, Dr. Falcon in [place], [place]. Dr. Falcon did tell her that he uses Synergy stents. Ideally, he would prefer to wait six months to stop his Plavix. He did mention that the patient had a non- ST-elevation SD and he believed it was really demand mediated, a type 2 SD, from the patient's TIPS procedure due to restenosis of the TIPS. He did not feel that it was plaque rupture, so if bleeding was a big issue, he would feel okay if Plavix was temporarily stopped to allow surgery or preferably colonoscopic removal of the polyps. I did have a discussion with Dr. Olmedo regarding this. I am still of the opinion that he would be better served by a transfer to [facility] in order to have his colon polyps possibly endoscopically removed. I believe if any issues were to arise during the procedure or postprocedure, such as bleeding or cardiovascular, that being at a tertiary care center would limit unfavorably outcomes. She was also in agreement with this. [id number]/[facility] #: [id number] A- [id number]/[facility] #: [id number] GALO
[2018-06-12] MEDS: Clopidogrel TAB* 75 MG PO SCH (10:02)
[2018-06-12] MEDS: Aspirin EC TAB* 81 MG TAB.EC PO SCH (10:02)
[2018-06-12] MEDS: Thiamine TAB* 100 MG TAB PO SCH (10:02)
[2018-06-12] MEDS: Ondansetron INJ* 2 MG/ML VIAL IV SCH ×4 (10:03→22:15)
[2018-06-12] MEDS: Folic Acid TAB* 1 MG PO SCH (10:03)
[2018-06-12] MEDS: RiFAXimin* 550 MG TAB PO SCH ×2 (10:03→22:15)
--- NOTE | 2018-06-12 11:22 | PN ---
Subjective Date of Service: 06/12/18 Interval History: Pt feels "better". Needed tx with Lasix last night. No breathing comfortable. Still lethargic, but oriented when awake. Noted BRBPR x 5 weeks now. Objective Active Medications: Aspirin (Aspirin Ec Tab*) 81 mg PO DAILY [facility] Last Admin: 06/12/18 10:02 Dose: 81 mg Clopidogrel Bisulfate (Plavix Tab*) 75 mg PO DAILY [facility] Last Admin: 06/12/18 10:02 Dose: 75 mg Folic Acid (Folvite Tab*) 1 mg PO DAILY [facility] Last Admin: 06/12/18 10:03 Dose: 1 mg Lactulose (Lactulose*) 30 ml PO QID [facility] Last Admin: 06/12/18 10:03 Dose: 30 ml Ondansetron HCl (Zofran Inj*) 4 mg IV QID [facility] Last Admin: 06/12/18 10:03 Dose: 4 mg Rifaximin (Xifaxan*) 550 mg PO BID [facility] Last Admin: 06/12/18 10:03 Dose: 550 mg Thiamine HCl (Vitamin B-1 Tab*) 100 mg PO DAILY [facility] Last Admin: 06/12/18 10:02 Dose: 100 mg Vital Signs - 8 hr 06/12/18 07:41 Temperature 97.7 F Pulse Rate 70 Respiratory 16 Rate Blood Pressure 99/34 (mmHg) O2 Sat by Pulse 100 Oximetry Oxygen Devices in Use Now: None Appearance: 78 yo M in nAD, aAOx3 Eyes: No Scleral Icterus, PERRLA Ears/Nose/Mouth/Throat: NL Teeth, Lips, Gums, Mucous Membranes Moist Neck: NL Appearance and Movements; NL JVP, Trachea Midline Respiratory: Symmetrical Chest Expansion and Respiratory Effort, Clear to Auscultation Cardiovascular: NL Sounds; No Murmurs; No JVD, RRR Abdominal: NL Sounds; No Tenderness; No Distention Lymphatic: No Cervical Adenopathy Extremities: No Clubbing, Cyanosis, - - trace pedal edema R>L Skin: No Rash or Ulcers, No Nodules or Sclerosis Neurological: Alert and Oriented x 3, NL Muscle Strength and Tone Result Diagrams: 06/12/18 06:39 06/12/18 06:39 Microbiology and Other Data: Microbiology 06/09/18 23:54 Aerobic Blood Culture - Preliminary Blood Venous No Growth Day 1 Anaerobic Blood Culture - Preliminary No Growth Day 1 06/09/18 23:54 Aerobic Blood Culture - Preliminary Blood Venous No Growth Day 1 Anaerobic Blood Culture - Preliminary No Growth Day 1 EKG Data: ns no acute st t change Assess/Plan/Problems-Billing Assessment: this is a 78 yr old wm with 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 Ruiz unknown cause. -MELD = 13 s/p TIPS 02/2018 , under the care of DR. Liu (GI/hepatology from [facility]) -suspect that acitve GI bleed contributed to increased ammonia level. As D/w Dr. Ruiz pt will require transfer to [facility] for colonoscopy and definitive tx of bleeding polyps with cardiac abckup avaliable (2) Hepatic encephalopathy Comment: -Improving, -Continue with Lactulose and Xifaxan -Will repeat ammonia levels improved -U/A unremarkable -surgery to perform paracentesis to r/o SBP (3) Acute blood loss anemia Comment: -S/P 4 units of PRBC transfusion from 06/04/18 to 06/05/18 -another 3 U on 06/11/18 -Due to known pedunculated colonic polyps in setting of needed DAPT (4) Ascites Comment: -mild on exam today -will resume Lasix today (5) CAD (coronary artery disease) Comment: -s/p stent in 10/15 with in stent restenosis dx in 03/17 and 3 more stents placed at that time at [facility] -Continue ASA, Plavix,BB with hold parameters and statins -Pt had recent placement of KASSY that precludes D/C of DAPT (6) Chronic renal disease, stage 4, severely decreased glomerular filtration rate (GFR) between 15-29 mL/min/1.73 square meter Comment: at [facility]ine (7) DVT (deep venous thrombosis) Comment: RLE; s/p IVC filter in 05/17 for RLE DVT (8) DVT prophylaxis Comment: -S/P recent IVC placement on 05/06/18 SCD's, due to ongoing GI bleed anticoagulants contraindicated Status and Disposition: Transfer to [facility]
[2018-06-12] MEDS ORDERED: Furosemide TAB* 40 MG PO SCH (12:00)
--- NOTE | 2018-06-12 13:23 | BRIEFOPN ---
Brief Operative Note - Surgery Procedures: Procedures OPERATIVE REPORT PRE-OP: Ascites, cryptogenic cirrhosis POST-OP:Same PROCEDURE:Diagnostic paracentesis SURGEON: MD Cecilia ANESTHESIA:Local ASST:none IVF:none EBL:trace SPECIMEN:100 cc Ascitic fluid, thin reddish color, for cell studies as ordered per hospitalist service DRAIN: none WOUND CLASS:one COMPLICATIONS: none TO PACU
[2018-06-12] MEDS: Metoprolol Succinate XL TAB* 25 MG PO SCH (22:14)
[2018-06-13 06:21] LABS: ABS Basophils 0 10^3/ul (0-0.2); ABS Eosinophils 0.2 10^3/ul (0-0.6); ABS Lymphocytes 0.4 10^3/ul (1.0-4.8); ABS Monocytes 0.5 10^3/ul (0-0.8); ABS Neutrophils 4.1 10^3/ul (1.5-7.7); ABS Nucleated RBC 0 10^3/ul; Eosinophil % 3.2 % (0-6); Hematocrit 31 % (42-52); Hemoglobin 10.6 g/dl (14.0-18.0); Lymphocyte % 8.3 % (25-47); Mean Corpuscular HGB Conc 34 g/dl (31-36); Mean Corpuscular Hemoglobin 31 pg (27-31); Mean Corpuscular Volume 91 fL (80-94); Mean Platelet Volume 7.4 fL (7.4-10.4); Nucleated Red Blood Cells % 0; Platelet Count 111 10^3/ul (150-450); Red Blood Count 3.42 10^6/ul (4.00-5.40); Red Cell Distribution Width 21 % (10.5-15); White Blood Count 5.3 10^3/ul (3.5-10.8)
[2018-06-13 06:35] LABS: EGFR Non-African American 35.5 (>60)
[2018-06-13] MEDS: Ondansetron INJ* 2 MG/ML VIAL IV SCH ×4 (08:43→21:09)
[2018-06-13] MEDS: Atorvastatin* 80 MG TAB PO SCH (09:47)
[2018-06-13] MEDS: Thiamine TAB* 100 MG TAB PO SCH (09:47)
[2018-06-13] MEDS: Folic Acid TAB* 1 MG PO SCH (09:47)
[2018-06-13] MEDS: RiFAXimin* 550 MG TAB PO SCH ×2 (09:47→21:13)
[2018-06-13] MEDS: Clopidogrel TAB* 75 MG PO SCH (09:47)
[2018-06-13] MEDS: Aspirin EC TAB* 81 MG TAB.EC PO SCH (09:47)
[2018-06-13] MEDS: Furosemide TAB* 40 MG PO SCH (09:55)
[2018-06-13] MEDS: Metoprolol Succinate XL TAB* 25 MG PO SCH ×2 (09:56→20:56)
[2018-06-13] MEDS ORDERED: Morphine VIAL* 4 MG/ML VIAL (1 ml vial) IV ONE (09:57)
[2018-06-13] MEDS: Spironolactone TAB* 25 MG PO SCH (10:40)
--- NOTE | 2018-06-13 10:56 | OP ---
CC: Dr. Isaac Ruiz; Dr. Edwin Guillen * DATE OF OPERATION: 06/12/18 - ROOM #418 DATE OF : 44 SURGEON: Aldo Brooks MD FENCE LABORER: None. ANESTHESIA: 1% lidocaine with epinephrine. PRE-OP DIAGNOSIS: Ascites. POST-OP DIAGNOSIS: Ascites. OPERATIVE PROCEDURE: Diagnostic paracentesis with 100 cc of reddish, yellowish clear fluid drained and sent for cell studies and cytology. WOUND CLASSIFICATION: I. COMPLICATIONS: None. DRAINS: None. SPECIMENS: As per above. BRIEF HISTORY: Mr. Bernardo Ashford is a 78-year-old gentleman with multiple medical issues including cryptogenic cirrhosis with ascites, which appears to have, but now become recurrent even after having a TIPS procedure performed. A request has made for diagnostic paracentesis of documented ascitic fluid on ultrasound. Procedure was discussed with the patient and the risks of, but not limited to, bleeding, infection, intraabdominal injury, i.e. bowel injury or visceral organ injury resulting in peritonitis and sepsis and/or bleeding. Discomfort was also explained. DESCRIPTION OF PROCEDURE: Written informed consent was obtained, the abdomen was marked with indelible ink and the patient was placed in a slightly sitting upright supine position in the procedure room. A bedside ultrasound was then performed, which showed a [id number] amount of ascites, mainly in the right and left lower quadrants of the abdomen. Both of these sides were marked with indelible ink. I chose the right lower abdominal wall and this area was prepped with Betadine. Time-out verification was completed. 1% lidocaine was then infiltrated in the entire width of the abdominal wall and a small darren with an 11-blade knife was made in the skin. A 5-Gambian catheter over a needle was then passed through the abdominal wall into ascitic fluid, which was reddish, yellowish in color, was quite thin and I drained approximately 100 cc without difficulty. The specimen was sent in appropriate specimen containers. No further fluid was drained. The catheter was withdrawn and firm pressure was held for several minutes to achieve hemostasis. Sterile Band-Aid was applied. The patient tolerated the procedure well. [id number]/[facility] #: [id number] [facility]
[2018-06-13] MEDS ORDERED: Al Hydrox/Mg Hydrox/Simet LIQ* 30 ML UDC PO ONE (11:33)
[2018-06-13] MEDS ORDERED: Simethicone TAB* 80 MG TAB.CHEW PO ONE (12:02)
--- NOTE | 2018-06-13 12:08 | PN ---
Subjective Date of Service: 06/13/18 Interval History: Pt c/o CP today, but on further questioning he indicates epigastric pain radiating to b/l UQ's. abd distended. Last BM yesterday "with less blood in it" Objective Active Medications: Aspirin (Aspirin Ec Tab*) 81 mg PO DAILY [facility] Last Admin: 06/13/18 09:47 Dose: 81 mg Atorvastatin Calcium (Lipitor*) 80 mg PO DAILY [facility] Last Admin: 06/13/18 09:47 Dose: 80 mg Clopidogrel Bisulfate (Plavix Tab*) 75 mg PO DAILY [facility] Last Admin: 06/13/18 09:47 Dose: 75 mg Folic Acid (Folvite Tab*) 1 mg PO DAILY [facility] Last Admin: 06/13/18 09:47 Dose: 1 mg Furosemide (Lasix Tab*) 40 mg PO DAILY [facility] Last Admin: 06/13/18 09:55 Dose: 40 mg Lactulose (Lactulose*) 30 ml PO QID [facility] Last Admin: 06/13/18 09:47 Dose: 30 ml Metoprolol Succinate (Toprol Xl Tab*) 12.5 mg PO BID [facility] Last Admin: 06/13/18 09:56 Dose: 12.5 mg Ondansetron HCl (Zofran Inj*) 4 mg IV QID [facility] Last Admin: 06/13/18 08:43 Dose: 4 mg Rifaximin (Xifaxan*) 550 mg PO BID [facility] Last Admin: 06/13/18 09:47 Dose: 550 mg Spironolactone (Aldactone Tab*) 100 mg PO DAILY [facility] Last Admin: 06/13/18 10:40 Dose: 100 mg Thiamine HCl (Vitamin B-1 Tab*) 100 mg PO DAILY [facility] Last Admin: 06/13/18 09:47 Dose: 100 mg Vital Signs - 8 hr 06/13/18 06/13/18 06/13/18 07:50 09:35 10:40 Temperature 98.0 F Pulse Rate 74 Respiratory 18 20 Rate Blood Pressure 100/37 100/46 (mmHg) O2 Sat by Pulse 97 Oximetry 06/13/18 11:40 Temperature Pulse Rate Respiratory 20 Rate Blood Pressure (mmHg) O2 Sat by Pulse Oximetry Oxygen Devices in Use Now: None Appearance: 78 yo M in nAD, AAOx3 Eyes: No Scleral Icterus, PERRLA Ears/Nose/Mouth/Throat: NL Teeth, Lips, Gums, Mucous Membranes Moist Neck: NL Appearance and Movements; NL JVP, Trachea Midline Respiratory: Symmetrical Chest Expansion and Respiratory Effort, Clear to Auscultation Cardiovascular: NL Sounds; No Murmurs; No JVD, RRR Abdominal: - - distended , tympanic, mild tenderness in epigastrium, no rebound , no guarding, BS+ Lymphatic: No Cervical Adenopathy Extremities: No Clubbing, Cyanosis, - - +1 pitting pedal edema b/l Skin: No Rash or Ulcers, No Nodules or Sclerosis Neurological: Alert and Oriented x 3, NL Muscle Strength and Tone Result Diagrams: 06/13/18 06:05 06/13/18 06:05 Microbiology and Other Data: Microbiology 06/09/18 23:54 Aerobic Blood Culture - Preliminary Blood Venous No Growth Day 1 Anaerobic Blood Culture - Preliminary No Growth Day 1 06/09/18 23:54 Aerobic Blood Culture - Preliminary Blood Venous No Growth Day 1 Anaerobic Blood Culture - Preliminary No Growth Day 1 EKG Data: ns no acute st t change Assess/Plan/Problems-Billing Assessment: this is a 78 yr old wm with 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 Ruiz unknown cause. -MELD = 13 s/p TIPS 02/2018 , under the care of DR. Liu (GI/hepatology from [place]) -suspect that acitve GI bleed contributed to increased ammonia level. As D/w Dr. Ruiz pt will require transfer to [facility] for colonoscopy and definitive tx of bleeding polyps with cardiac backup avaliable. [facility] (2) Hepatic encephalopathy Comment: resolved -Continue with Lactulose and Xifaxan -U/A unremarkable -ascites fluid with no evidence of SBP, cx pending (3) Acute blood loss anemia Comment: -S/P 4 units of PRBC transfusion from 06/04/18 to 06/05/18 -another 3 U on 06/11/18 -Due to known pedunculated colonic polyps in setting of needed DAPT (4) Ascites Comment: -mild on exam -will resume spironolactone cont Lasix (5) CAD (coronary artery disease) Comment: Today's CP likely epigastric , trop initially neg, EKG paced, cont to f /u trops. will place on telem -s/p stent in 10/15 with in stent restenosis dx in 03/17 and 3 more stents placed at that time at [place] -Continue ASA, Plavix,BB with hold parameters and statins -Pt had recent placement of KASSY that precludes D/C of DAPT (6) Chronic renal disease, stage 4, severely decreased glomerular filtration rate (GFR) between 15-29 mL/min/1.73 square meter Comment: at baseline (7) DVT (deep venous thrombosis) Comment: RLE; s/p IVC filter in 05/17 for RLE DVT (8) DVT prophylaxis Comment: -S/P recent IVC placement on 05/06/18 SCD's, due to ongoing GI bleed anticoagulants contraindicated Status and Disposition: Transfer to [place] ongoing
--- NOTE | 2018-06-13 16:20 | CONS ---
ADDENDUM TO CONSULTATION REPORT DATE OF CONSULTATION: 06/11/2018. ADDENDUM: I have a discussion with Dr. Olmedo regarding the discussion she had with the patient's vice president of operations, Dr. Falcon in [place], [place]. Dr. Falcon did tell her that he uses Synergy stents. Ideally, he would prefer to wait six months to stop his Plavix. He did mention that the patient had a [id number] GA and he believed it was really demand mediated, a type 2 GA, from the patient's TIPS procedure due to restenosis of the TIPS. He did not feel that it was plaque rupture, so if bleeding was a big issue, he would feel okay if Plavix was temporarily stopped to allow surgery or preferably colonoscopic removal of the polyps. I did have a discussion with Dr. Olmedo regarding this. I am still of the opinion that he would be better served by a transfer to [facility] in order to have his colon polyps possibly endoscopically removed. I believe if any issues were to arise during the procedure or postprocedure, such as bleeding or cardiovascular, that being at a tertiary care center would limit unfavorably outcomes. She was also in agreement with this. [id number]/[facility] #: [id number] GALO
--- NOTE | 2018-06-13 20:22 | CONS ---
CC: Isaac Ruiz MD; Dr. Donte Falcon, [facility]; Dr. Johnston * CARDIOLOGY CONSULTATION NOTE: DATE OF CONSULT: 06/13/18 HOSPITALIST: Isaac Ruiz MD PRIMARY CARE PHYSICIAN: Dr. Johnston. REASON FOR CONSULTATION: Chest pain, family requests, known coronary artery disease. HISTORY OF PRESENT ILLNESS: Mr. Ashford is a 78-year-old gentleman followed by Cardiology for third degree heart block and coronary artery disease, he underwent bare-metal stenting in September of this year and then required drug- eluting stents following a TIPS procedure on 03/17/18. The patient has been plagued by gastrointestinal bleeding and found to have several large polyps as well as AV malformations. He has been followed extensively by Gastroenterology who to date had recommended transfusions as needed. I had communicated with his fatback trimmer, Dr. Donte Falcon on an earlier admission with GI bleeding (05/02/18) regarding Plavix and procedures and he had felt that this could be temporarily held for the procedure and then resumed. Currently, the patient has had progressive bleeding over the last 4 to 5 weeks requiring more frequent transfusions. The patient developed epigastric pressure today with concern that this could be angina; however, troponins have been negative and now, later in the day he has responded to treatment for reflux and gas. The patient still feels fatigued and has had intermittent shortness of breath. His family had brought him in, in part because of some confusion and significant fatigue and lethargy, found to have elevated ammonia. The patient's said that he has required less paracentesis episodes over the last several years but has continued to have dark, black stools. PAST MEDICAL HISTORY: The patient has a past medical history of: 1. Idiopathic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 the liver. 2. Portal hypertension. 3. Secondary chronic ascites. 4. Third degree heart block with pacemaker. 5. Coronary artery disease, most recent cath on 03/29/18 showing severe (95%) restenosis of the bare-metal stent in the OM1 branch and Cx, treated with 2 Synergy drug-eluting stents. Additionally, he had severe ostial LAD disease (80 %, iFR 0.84), which needed 2 drug- eluting stents, Synergy, more distal 30% LAD occlusions. 6. Dyslipidemia. 7. Benign prostatic hypertrophy. 8. Renal insufficiency. 9. Anemia due to GI bleeding (polyps and AVMs). MEDICATIONS: Current inpatient medications include: 1. Aspirin 81 mg a day. 2. Lipitor 80 mg a day. 3. Plavix 75 mg a day. 4. Folvite 1 mg a day. 5. Lasix 40 mg a day. 6. Lactulose 30 mL 4 times a day. 7. Toprol-XL 12.5 mg b.i.d. 8. Zofran p.r.n. 9. Rifaximin 550 mg b.i.d. 10. Aldactone 100 mg a day. 11. Thiamine 100 mg a day. ALLERGIES: Include [employer] and LASIX. FAMILY HISTORY: Significant for the brother of colon cancer and father who of bladder cancer. 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 He is , lives with his , has supportive family. No history of alcohol or tobacco use currently. He has a brother who lives in the area. REVIEW OF SYSTEMS: Positive for recent black stools and has been getting transfusion on Mondays, but this week required 4 units of blood on Monday and then required 2 additional units on Monday. His family has felt he is more confused and lethargic. As above, his abdominal distention has improved and he has required less frequent paracentesis. Lower extremity edema has been stable. Appetite has been somewhat diminished. He denies fevers, chills, sweats. Until today, he has had no chest or epigastric discomfort. PHYSICAL EXAM: The patient is 5 feet 9 inches, weighs 202 pounds with a BMI of 29. Vital Signs: Currently, blood pressure 111/49, pulse is 84, oxygen saturation on room air 98%, T-max 100.2. General Appearance: Elderly gentleman , appears very fatigued and chronically ill, lying at 30 degrees, appears more tired and color is not as good. He does not appear at his usual baseline. Psychologically, pleasant and cooperative. Neurologically, awake, alert, and oriented to person and place. I did not evaluate for time. He recognized me immediately. Speech was articulate. Comprehension was good. He followed commands well in bed. I did not evaluate gait. HEENT: Mucous membranes were moist. Tongue remained midline. Neck: With increased JVP. Breath sounds diminished in the right base, otherwise clear. Coronary: Distant S1, S2 regular without murmurs or rubs. Abdomen: Distended. Active bowel sounds. No epigastric discomfort and with ascites, I could not appreciate hepatomegaly. Lower extremities show 1+ edema. They were warm. LABORATORY DATA: Labs today show white count 5.3, hemoglobin 10.6, hematocrit 31, platelets 111,000 (hematocrit 16 on 06/03/18). INR 1.1. PTT 25. Sodium 136, potassium 4.4, chloride 111, bicarb 20, BUN 29, creatinine 1.86. Magnesium 2.0. Alk phos 113. Ammonia 59, improved from 232 on admission, . Troponin 0.01 today. Urinalysis negative for nitrites, leukocyte esterase , glucose, or ketones. Peritoneal fluid from 06/12/18 with red and bloody white cells 291 and rbc's 31,625, 20 neutrophils, 27 lymphocytes, 53 monocytes. Total protein 2.6. IMAGING: A 12-lead ECG today showed normal sinus rhythm with a first degree AV block and ventricular pacing with 1:1 ventricular capture. Further EKG interpretation unable to be done because of ventricular pacing. Chest x-ray from 06/09/18 showed hyperinflation and pulmonary venous congestion. Brain CT showed no evidence of acute intracranial process. Age-related cortical changes noted. Liver ultrasound showed TIPS shunt from right hepatic vein to IVC patent with flow velocity 95 cm/sec, moderate to large volume ascites and liver imaging consistent with cirrhosis. Echocardiogram on 09/29/17 at [facility] showed moderate left ventricular hypertrophy and ejection fraction of 60% to 65%, septal dyssynchrony consistent with ventricular pacing, trace aortic insufficiency, mild mitral and mild tricuspid insufficiency, mildly elevated PA pressure at 40 mmHg. IMPRESSION: In summary, Bernardo Ashford is a 78-year-old gentleman who is pacemaker dependent due to complete AV block. He has coronary artery disease involving the LAD and circumflex systems who originally had bare-metal stenting in September, but developed reocclusion with smooth muscle cells (not plaque rupture ) and progression/evidence of severe LAD disease and therefore, required 2 vessel drug-eluting stenting as above, on 03/29/18. He has been angina free since the stenting post TIPS for his non-Q-wave myocardial infarction; however, he has had ongoing melena, blood loss, and anemia and has required multiple transfusions with increasing transfusion requirements over the last month. The GI bleeding has been felt to be due to multiple large gastric polyps and he also additionally has arteriovenous malformations per Dr. Ruiz's notes. The patient is now encephalopathic, improving with medical management. I feel and had felt that Mr. Bernardo Ashford would benefit from addressing his polyps in communication with Dr. Donte Falcon, his fatback trimmer at [place], although ideally he would stay on Plavix 6 months. He felt that after 1 month of Plavix, with the particular stents he had and the fact that he had a ST elevation myocardial infarction and that he felt it was demand, type 2 ischemia related to the stress from his TIPS procedure from restenosis as opposed to plaque rupture, he felt it would be okay to hold Plavix temporarily to allow for surgery or colonoscopic removal of the polyps. I feel we should hold the Plavix at this point. To date, Gastroenterology has felt him to be a high risk candidate for polypectomy, so I think he should be transferred to a center, tertiary or quaternary, to manage his care. I feel at this point he is failing the more conservative approach of transfusing him. I think we need a more definitive management. We have no evidence of active ischemia at this point. With respect to cardiac medications, Plavix could be held today. If able, you could continue aspirin, but if preferred this could be held as well. I will continue diuretics as his blood pressure allows. I will continue Toprol-XL for cardiac protection perioperatively and periprocedurally. If the Lipitor is felt to be contributing to any of his hepatic issues it could be held, but I defer to GI. If his cirrhosis is not impacted by Lipitor, I would continue it. Do not hesitate to contact me for any additional questions or specifics about this complex and very nice gentleman's care. [id number]/[facility] #: [id number] GALO
[2018-06-13] MEDS: Omeprazole CAP* 20 MG PO SCH (21:13)
[2018-06-14 06:56] LABS: ABS Basophils 0 10^3/ul (0-0.2); ABS Eosinophils 0.1 10^3/ul (0-0.6); ABS Lymphocytes 0.5 10^3/ul (1.0-4.8); ABS Monocytes 0.5 10^3/ul (0-0.8); ABS Neutrophils 2.1 10^3/ul (1.5-7.7); ABS Nucleated RBC 0 10^3/ul; Eosinophil % 4.1 % (0-6); Hematocrit 28 % (42-52); Hemoglobin 9.5 g/dl (14.0-18.0); Lymphocyte % 16.1 % (25-47); Mean Corpuscular HGB Conc 34 g/dl (31-36); Mean Corpuscular Hemoglobin 31 pg (27-31); Mean Corpuscular Volume 92 fL (80-94); Mean Platelet Volume 7.4 fL (7.4-10.4); Nucleated Red Blood Cells % 0.1; Platelet Count 98 10^3/ul (150-450); Red Blood Count 3.03 10^6/ul (4.00-5.40); Red Cell Distribution Width 21 % (10.5-15); White Blood Count 3.3 10^3/ul (3.5-10.8)
[2018-06-14 07:09] LABS: EGFR Non-African American 35.3 (>60)
[2018-06-14] MEDS: Ondansetron INJ* 2 MG/ML VIAL IV SCH ×4 (08:30→21:26)
[2018-06-14] MEDS: Spironolactone TAB* 25 MG PO SCH (09:47)
[2018-06-14] MEDS: RiFAXimin* 550 MG TAB PO SCH ×2 (09:47→21:29)
[2018-06-14] MEDS: Atorvastatin* 80 MG TAB PO SCH (09:47)
[2018-06-14] MEDS: Omeprazole CAP* 20 MG PO SCH ×2 (09:47→21:29)
[2018-06-14] MEDS: Aspirin EC TAB* 81 MG TAB.EC PO SCH (09:47)
[2018-06-14] MEDS: Thiamine TAB* 100 MG TAB PO SCH (09:47)
[2018-06-14] MEDS: Folic Acid TAB* 1 MG PO SCH (09:47)
[2018-06-14] MEDS: Furosemide TAB* 40 MG PO SCH (09:47)
[2018-06-14] MEDS: Metoprolol Succinate XL TAB* 25 MG PO SCH ×2 (09:48→21:15)
--- NOTE | 2018-06-14 10:12 | PN ---
Subjective Date of Service: 06/14/18 Interval History: feels well, no more lethargy. Had 3 BM's in the past 24H, black but no ronald blood noted Noted his abd is "filling up and legs more swollen" Objective Active Medications: Aspirin (Aspirin Ec Tab*) 81 mg PO DAILY [facility] Last Admin: 06/14/18 09:47 Dose: 81 mg Atorvastatin Calcium (Lipitor*) 80 mg PO DAILY [facility] Last Admin: 06/14/18 09:47 Dose: 80 mg Folic Acid (Folvite Tab*) 1 mg PO DAILY [facility] Last Admin: 06/14/18 09:47 Dose: 1 mg Furosemide (Lasix Tab*) 40 mg PO DAILY [facility] Last Admin: 06/14/18 09:47 Dose: 40 mg Lactulose (Lactulose*) 30 ml PO QID [facility] Last Admin: 06/14/18 09:47 Dose: 30 ml Metoprolol Succinate (Toprol Xl Tab*) 12.5 mg PO BID [facility] Last Admin: 06/14/18 09:48 Dose: 12.5 mg Omeprazole (Prilosec Cap*) 20 mg PO BID [facility] Last Admin: 06/14/18 09:47 Dose: 20 mg Ondansetron HCl (Zofran Inj*) 4 mg IV QID [facility] Last Admin: 06/14/18 08:30 Dose: 4 mg Rifaximin (Xifaxan*) 550 mg PO BID [facility] Last Admin: 06/14/18 09:47 Dose: 550 mg Spironolactone (Aldactone Tab*) 100 mg PO DAILY [facility] Last Admin: 06/14/18 09:47 Dose: 100 mg Thiamine HCl (Vitamin B-1 Tab*) 100 mg PO DAILY [facility] Last Admin: 06/14/18 09:47 Dose: 100 mg Vital Signs - 8 hr 06/14/18 06/14/18 06/14/18 02:40 08:00 08:17 Temperature 97.7 F 97.5 F Pulse Rate 75 78 Respiratory 16 20 20 Rate Blood Pressure 102/43 93/48 (mmHg) O2 Sat by Pulse 97 100 Oximetry Oxygen Devices in Use Now: None Appearance: 78 yo M in NAD, AAOx3 Eyes: No Scleral Icterus, PERRLA Ears/Nose/Mouth/Throat: NL Teeth, Lips, Gums, Mucous Membranes Moist Neck: NL Appearance and Movements; NL JVP Respiratory: Symmetrical Chest Expansion and Respiratory Effort, Clear to Auscultation Cardiovascular: NL Sounds; No Murmurs; No JVD, RRR Abdominal: - - soft ascites noted, NT Lymphatic: No Cervical Adenopathy Extremities: No Clubbing, Cyanosis, - - +1 pitting pedal edema -worse then prior Skin: No Rash or Ulcers, No Nodules or Sclerosis Neurological: Alert and Oriented x 3, NL Muscle Strength and Tone Result Diagrams: 06/14/18 06:31 06/14/18 06:31 Microbiology and Other Data: Microbiology 06/09/18 23:54 Aerobic Blood Culture - Preliminary Blood Venous No Growth Day 1 Anaerobic Blood Culture - Preliminary No Growth Day 1 06/09/18 23:54 Aerobic Blood Culture - Preliminary Blood Venous No Growth Day 1 Anaerobic Blood Culture - Preliminary No Growth Day 1 EKG Data: ns no acute st t change Assess/Plan/Problems-Billing Assessment: this is a 78 yr old wm with 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 Ruiz unknown cause. -MELD = 13 s/p TIPS 02/2018 , under the care of DR. Liu (GI/hepatology from [place]) -suspect that acitve GI bleed contributed to increased ammonia level. As D/w Dr. Ruiz pt will require transfer to [facility] for colonoscopy and definitive tx of bleeding polyps with cardiac backup avaliable. Pt was accepted to be transferred to [facility] and is on a waiting list (2) Hepatic encephalopathy Comment: resolved, ammonia is up today to 99, but pt is asymptomatic -Continue with Lactulose and Xifaxan -U/A unremarkable -ascites fluid with no evidence of SBP, cx NTD (3) Acute blood loss anemia Comment: -S/P 4 units of PRBC transfusion from 06/04/18 to 06/05/18 -another 3 U on 06/11/18 -Due to known pedunculated colonic polyps in setting of needed DAPT (4) Ascites Comment: -worse on exam -cont home spironolactone cont Lasix -will tx with one dose IV Lasix today (5) CAD (coronary artery disease) Comment: resolved -s/p stent in 10/15 with in stent restenosis dx in 03/17 and 3 more stents placed at that time at [place] -Continue ASA,BB with hold parameters and statins -Pt had recent placement of KASSY as per d/w Dr. Olmedo who d/w Dr. Falcon ( [place]) pt to be cont on ASA, Plavix stopped on 06/13/18 in anticipation of procedure in the near future (6) Chronic renal disease, stage 4, severely decreased glomerular filtration rate (GFR) between 15-29 mL/min/1.73 square meter Comment: at baseline (7) DVT (deep venous thrombosis) Comment: RLE; s/p IVC filter in 05/17 for RLE DVT (8) DVT prophylaxis Comment: -S/P recent IVC placement on 05/06/18 SCD's, due to ongoing GI bleed anticoagulants contraindicated Status and Disposition: Transfer to [place] ongoing
[2018-06-14] MEDS ORDERED: Furosemide IV* 10 MG/ML 2 ML VIAL (20 MG) IV ONE (10:15)
--- NOTE | 2018-06-14 10:19 | TRS ---
CC: Dr. Herman Looney; Dr. Falcon, [facility]; Dr. Olmedo; Dr. Ruiz; Dr. Johnston; Dr. Pham Guaman * TRANSFER SUMMARY: DATE OF ADMISSION: 06/10/18 DATE OF ANTICIPATED TRANSFER: 06/14/18 PRIMARY CARE PROVIDER: Dr. Johnston. FACILITY: That the patient is being transferred to is [facility] in [place], [place]. ACCEPTING PHYSICIAN: Hospitalist Service from [facility]. ACCEPTING VAULT ATTENDANT: Dr. Pham Guaman. TRANSFER DIAGNOSES: 1. Hepatic encephalopathy likely exacerbated by ongoing gastrointestinal bleed. 2. Acute gastrointestinal bleed due to colon polyps diagnosed originally during colonoscopy on 04/20/18. 3. Acute blood loss anemia requiring 3 units of packed red blood cell transfusion on 06/11/18. SECONDARY DIAGNOSES: 1. History of cryptogenic liver cirrhosis with recurrent ascites, status post TIPS procedure in February 2018 at [place]. 2. Coronary artery disease, status post coronary artery stenting x1 stent in September 2017. Patient had in-stent restenosis noted during cardiac catheterization in February 2018 at [facility] and another 3 stents placed at that time. 3. History of sick sinus syndrome, status post pacemaker. 4. Obstructive sleep apnea. 5. Iron-deficiency anemia, on weekly iron infusions in the past. 6. History of bladder cancer. 7. History of DVT of the right lower extremity, status post IVC filter placement. 8. History of recent admission also for gastrointestinal bleed. At that point , patient was transfused a total of 4 units of packed red blood cells on and 06/15/18. 9. History of monoclonal gammopathy of undetermined significance. CURRENT MEDICATIONS: Include: 1. Aspirin 81 mg daily. 2. Patient's Plavix was discontinued on 06/13/18 with plans of colonoscopy in the near future. 3. Lipitor 80 mg daily. 4. Folic acid 1 mg daily. 5. Furosemide 40 mg daily. 6. Lactulose 30 mL 4 times a day. 7. Metoprolol succinate 12.5 mg b.i.d. 8. Rifaximin 550 mg b.i.d. 9. Simethicone 80 mg on a p.r.n. basis. 10. Spironolactone 100 mg daily. 11. Thiamine 100 mg daily. 12. Omeprazole 20 mg b.i.d. Home medications include: 1. Spironolactone 100 mg daily. 2. Rosuvastatin 40 mg daily. 3. Metoprolol succinate 12.5 mg b.i.d. 4. Furosemide 40 mg daily. 5. Plavix 75 mg daily. 6. Aspirin 81 mg daily. 7. Protonix 40 mg daily. 8. Colace 100 mg daily. 9. Acetaminophen on a p.r.n. basis. LABORATORY DATA AND STUDIES PERFORMED DURING THE HOSPITAL STAY: Included: On , sodium of 136, potassium 4.4, chloride 111, carbon dioxide 20, BUN 29, creatinine 1.86. Last obtained liver function tests showed on 06/12/18 total bilirubin of 1.8, AST of 28, ALT of 21, alkaline phosphatase of 113. Patient's ammonia on presentation was 232 and on 06/13/18 was 59. Troponins were 0.01, last obtained on 06/13/18. Patient's hemoglobin was at its lowest on 06/11/18 at 6.8. After 3 units of packed red blood cell transfusion, hemoglobin on 06/13/18 was 10.6. Patient's platelets on 06/13/18 are 111. Liver ultrasound on 06/12/18 showed impression: "The TIPS shunt from the right hepatic vein to the IVC appears to be patent with a flow velocity of 95 cm/ second. [id number] volume ascites. Appearance of the liver consistent with cirrhosis." Patient had a paracentesis performed on 06/12/18 that was a diagnostic paracentesis with fluid cultures negative growth so far. The peritoneal fluid analysis showed red and bloody fluid with wbc's of 291, total cell count of 100 , rbc's of 31,625, neutrophils 20%, lymphocytes 27%, monocytes 53%. Total protein of 2.6. Blood cultures obtained at admission were negative. Gram stain from peritoneal fluid showed 4+ nucleated cells, 2+ neutrophils, no organisms seen. HOSPITALIZATION COURSE: Bernardo Ashford is a 78-year-old unfortunate patient with history of cryptogenic liver cirrhosis that was resistant to diuretics, status post TIPS procedure in February 2018. During that time, he also needed to have a repeat cardiac catheterization this year and was noted to have occlusion of cardiac stent that was placed in September 2017 and 3 more stents had to be placed. That was performed at [facility]. He has history of MGUS and had chronic anemia on iron transfusions. He had noted to have black and bloody stools, and in March [address] Ruiz's report, patient had colonoscopy that showed multiple large pedunculated polyps, one of them seemed inflammatory and oozing out blood on the right side of the colon. Biopsy did result in a fair amount of bleeding. It was felt that the continued anemia is due to the polyps. He did undergo an upper endoscopy without significant findings of his anemia as well as small bowel and capsule endoscopy , which then revealed nonbleeding lymphangiectasis. At that point, his parachute cushion installer and his photographic specialist had been in touch with the patient's specialist at [facility] to arrange an outpatient colonoscopy of this high risk patient, who has recent drug-eluting stents in place and is on dual antiplatelet agents. Unfortunately, when that arrangement was in process, the patient was admitted to the hospital again with GI bleed the first time on 06/03/18 and was transfused 4 units of blood, stabilized, and discharged home on 06/07/18. He came back bleeding again on 06/10/18 and required another 3 units of blood. Patient stated that his stool is black with occasional bright red blood in it. After the extensive discussion with Dr. Ruiz, our photographic specialist, and Dr. Olmedo, patient's parachute cushion installer here, recommendations for the patient to have an inpatient transfer to [facility] where his equipment installer and his parachute cushion installer for further evaluation of his hepatic encephalopathy. This is likely related to ongoing GI bleed. During current hospital stay, the patient again was transfused 3 units of packed red blood cells. So far his hemoglobin and hematocrit stabilized and with current treatment for his hepatic encephalopathy with lactulose and rifaximin, his ammonia was down to the level close to 50 and his symptoms of encephalopathy have resolved. Nevertheless, patient already failed an outpatient attempt to schedule him at [facility] and he will await transfer to the hospitalist service at [facility] to which service patient was accepted. Currently, the patient is waiting for bed to be transferred. For physical exam at the time of transfer, please see daily progress notes. [id number]/[facility] #: [id number] MTDD
[2018-06-15 06:35] LABS: Hematocrit 26 % (42-52); Hemoglobin 8.9 g/dl (14.0-18.0); Mean Corpuscular HGB Conc 34 g/dl (31-36); Mean Corpuscular Hemoglobin 31 pg (27-31); Mean Corpuscular Volume 91 fL (80-94); Mean Platelet Volume 7.2 fL (7.4-10.4); Platelet Count 107 10^3/ul (150-450); Red Blood Count 2.88 10^6/ul (4.00-5.40); Red Cell Distribution Width 22 % (10.5-15); White Blood Count 3.3 10^3/ul (3.5-10.8)
[2018-06-15 06:54] LABS: EGFR Non-African American 33.6 (>60)
[2018-06-15] MEDS: Furosemide TAB* 40 MG PO SCH (09:07)
[2018-06-15] MEDS: Spironolactone TAB* 25 MG PO SCH (09:07)
[2018-06-15] MEDS: Omeprazole CAP* 20 MG PO SCH ×2 (09:09→22:59)
[2018-06-15] MEDS: Atorvastatin* 80 MG TAB PO SCH (09:10)
[2018-06-15] MEDS: RiFAXimin* 550 MG TAB PO SCH ×2 (09:10→22:59)
[2018-06-15] MEDS: Folic Acid TAB* 1 MG PO SCH (09:10)
[2018-06-15] MEDS: Metoprolol Succinate XL TAB* 25 MG PO SCH ×2 (09:10→22:59)
[2018-06-15] MEDS: Thiamine TAB* 100 MG TAB PO SCH (09:10)
[2018-06-15] MEDS: Ondansetron INJ* 2 MG/ML VIAL IV SCH ×4 (09:11→22:59)
[2018-06-15] MEDS: Aspirin EC TAB* 81 MG TAB.EC PO SCH (09:11)
[2018-06-15] MEDS ORDERED: Saline NASAL DROPS 0.65%* 1 DROP BTL BOTH NARES PRN (09:26)
--- NOTE | 2018-06-15 10:04 | PN ---
Subjective Date of Service: 06/15/18 Interval History: Pt had epistaxis yesterday and still occasionally it recurs. Stopped for now. LE 's with less edema. Has had black stools mixed with blood (same as usual). Objective Active Medications: Aspirin (Aspirin Ec Tab*) 81 mg PO DAILY [facility] Last Admin: 06/15/18 09:11 Dose: 81 mg Atorvastatin Calcium (Lipitor*) 80 mg PO DAILY [facility] Last Admin: 06/15/18 09:10 Dose: 80 mg Folic Acid (Folvite Tab*) 1 mg PO DAILY [facility] Last Admin: 06/15/18 09:10 Dose: 1 mg Furosemide (Lasix Tab*) 40 mg PO DAILY [facility] Last Admin: 06/15/18 09:07 Dose: 40 mg Lactulose (Lactulose*) 30 ml PO QID [facility] Last Admin: 06/15/18 09:07 Dose: 30 ml Metoprolol Succinate (Toprol Xl Tab*) 12.5 mg PO BID [facility] Last Admin: 06/15/18 09:10 Dose: 12.5 mg Omeprazole (Prilosec Cap*) 20 mg PO BID [facility] Last Admin: 06/15/18 09:09 Dose: 20 mg Ondansetron HCl (Zofran Inj*) 4 mg IV QID [facility] Last Admin: 06/15/18 09:11 Dose: 4 mg Rifaximin (Xifaxan*) 550 mg PO BID [facility] Last Admin: 06/15/18 09:10 Dose: 550 mg Sodium Chloride (Sodium Chloride 0.65% Nasal Drops*) 1 drop BOTH NARES Q4H PRN PRN Reason: nasal congestion Spironolactone (Aldactone Tab*) 100 mg PO DAILY [facility] Last Admin: 06/15/18 09:07 Dose: 100 mg Thiamine HCl (Vitamin B-1 Tab*) 100 mg PO DAILY [facility] Last Admin: 06/15/18 09:10 Dose: 100 mg Vital Signs - 8 hr 06/15/18 03:11 Temperature 97.9 F Pulse Rate 67 Respiratory 16 Rate Blood Pressure 91/39 (mmHg) O2 Sat by Pulse 98 Oximetry Oxygen Devices in Use Now: None Appearance: 78 yo m in nAD, AAOx3 Eyes: No Scleral Icterus, PERRLA Ears/Nose/Mouth/Throat: NL Teeth, Lips, Gums, Mucous Membranes Moist Neck: NL Appearance and Movements; NL JVP, Trachea Midline Respiratory: Symmetrical Chest Expansion and Respiratory Effort, Clear to Auscultation Cardiovascular: NL Sounds; No Murmurs; No JVD, RRR Abdominal: NL Sounds; No Tenderness; No Distention, - - ascites soft Lymphatic: No Cervical Adenopathy Extremities: No Clubbing, Cyanosis, - - +1 pedal edema improving Skin: No Rash or Ulcers, No Nodules or Sclerosis Neurological: Alert and Oriented x 3, NL Muscle Strength and Tone Result Diagrams: 06/15/18 06:23 06/15/18 06:23 Microbiology and Other Data: Microbiology 06/09/18 23:54 Aerobic Blood Culture - Preliminary Blood Venous No Growth Day 1 Anaerobic Blood Culture - Preliminary No Growth Day 1 06/09/18 23:54 Aerobic Blood Culture - Preliminary Blood Venous No Growth Day 1 Anaerobic Blood Culture - Preliminary No Growth Day 1 EKG Data: ns no acute st t change Assess/Plan/Problems-Billing Assessment: this is a 78 yr old wm with 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 Ruiz unknown cause. -MELD = 13 s/p TIPS 02/2018 , under the care of DR. Liu (GI/hepatology from [facility]) -suspect that acitve GI bleed contributed to increased ammonia level. As D/w Dr. Ruiz pt will require transfer to [facility] for colonoscopy and definitive tx of bleeding polyps with cardiac backup avaliable. [facility] and is on a waiting list (2) Hepatic encephalopathy Comment: resolved, ammonia is up today to 120, but pt is asymptomatic. will tx with additional dose of Lactulose today -Continue with Lactulose and Xifaxan -U/A unremarkable -ascites fluid with no evidence of SBP, cx NTD (3) Acute blood loss anemia Comment: -S/P 4 units of PRBC transfusion from 06/04/18 to 06/05/18 -another 3 U on 06/11/18 -Due to known pedunculated colonic polyps in setting of needed DAPT (4) Ascites Comment: improved today -cont home spironolactone cont Lasix (5) CAD (coronary artery disease) Comment: resolved -s/p stent in 10/15 with in stent restenosis dx in 03/17 and 3 more stents placed at that time at [place] -Continue ASA,BB with hold parameters and statins -Pt had recent placement of KASSY as per d/w Dr. Olmedo who d/w Dr. Falcon ( [facility]) pt to be cont on ASA, Plavix stopped on 06/13/18 in anticipation of procedure in the near future (6) Chronic renal disease, stage 4, severely decreased glomerular filtration rate (GFR) between 15-29 mL/min/1.73 square meter Comment: at baseline (7) DVT (deep venous thrombosis) Comment: RLE; s/p IVC filter in 05/17 for RLE DVT (8) DVT prophylaxis Comment: -S/P recent IVC placement on 05/06/18 SCD's, due to ongoing GI bleed anticoagulants contraindicated Status and Disposition: Transfer to [place] [facility] ongoing
[2018-06-16 06:45] LABS: ABS Basophils 0 10^3/ul (0-0.2); ABS Eosinophils 0.3 10^3/ul (0-0.6); ABS Lymphocytes 0.6 10^3/ul (1.0-4.8); ABS Monocytes 0.3 10^3/ul (0-0.8); ABS Neutrophils 1.7 10^3/ul (1.5-7.7); ABS Nucleated RBC 0 10^3/ul; Eosinophil % 10.5 % (0-6); Hematocrit 26 % (42-52); Lymphocyte % 19.8 % (25-47); Mean Corpuscular HGB Conc 35 g/dl (31-36); Mean Corpuscular Hemoglobin 31 pg (27-31); Mean Corpuscular Volume 90 fL (80-94); Mean Platelet Volume 6.9 fL (7.4-10.4); Nucleated Red Blood Cells % 0; Platelet Count 112 10^3/ul (150-450); Red Cell Distribution Width 21 % (10.5-15); White Blood Count 2.9 10^3/ul (3.5-10.8)
[2018-06-16 07:01] LABS: EGFR Non-African American 33.6 (>60)
[2018-06-16 07:53] VITALS: BP 110/60
[2018-06-16] MEDS: Spironolactone TAB* 25 MG PO SCH (07:55)
[2018-06-16] MEDS: Ondansetron INJ* 2 MG/ML VIAL IV SCH (07:55)
[2018-06-16] MEDS: Metoprolol Succinate XL TAB* 25 MG PO SCH (07:55)
[2018-06-16] MEDS: Aspirin EC TAB* 81 MG TAB.EC PO SCH (07:56)
[2018-06-16] MEDS: Furosemide TAB* 40 MG PO SCH (07:56)
[2018-06-16] MEDS: Atorvastatin* 80 MG TAB PO SCH (07:56)
[2018-06-16] MEDS: Omeprazole CAP* 20 MG PO SCH (07:56)
[2018-06-16] MEDS: RiFAXimin* 550 MG TAB PO SCH (07:56)
[2018-06-16] MEDS: Thiamine TAB* 100 MG TAB PO SCH (07:56)
[2018-06-16] MEDS: Folic Acid TAB* 1 MG PO SCH (07:56)
--- NOTE | 2018-06-16 08:59 | PN ---
Subjective Date of Service: 06/16/18 Interval History: pt feels well, walked to bathroom yesterday. stool black, not bloody Objective Active Medications: Aspirin (Aspirin Ec Tab*) 81 mg PO DAILY [facility] Last Admin: 06/16/18 07:56 Dose: 81 mg Atorvastatin Calcium (Lipitor*) 80 mg PO DAILY [facility] Last Admin: 06/16/18 07:56 Dose: 80 mg Folic Acid (Folvite Tab*) 1 mg PO DAILY [facility] Last Admin: 06/16/18 07:56 Dose: 1 mg Furosemide (Lasix Tab*) 40 mg PO DAILY [facility] Last Admin: 06/16/18 07:56 Dose: 40 mg Lactulose (Lactulose*) 30 ml PO QID [facility] Last Admin: 06/16/18 07:55 Dose: 30 ml Metoprolol Succinate (Toprol Xl Tab*) 12.5 mg PO BID [facility] Last Admin: 06/16/18 07:55 Dose: 12.5 mg Omeprazole (Prilosec Cap*) 20 mg PO BID [facility] Last Admin: 06/16/18 07:56 Dose: 20 mg Ondansetron HCl (Zofran Inj*) 4 mg IV QID [facility] Last Admin: 06/16/18 07:55 Dose: 4 mg Rifaximin (Xifaxan*) 550 mg PO BID [facility] Last Admin: 06/16/18 07:56 Dose: 550 mg Sodium Chloride (Sodium Chloride 0.65% Nasal Drops*) 1 drop BOTH NARES Q4H PRN PRN Reason: nasal congestion Spironolactone (Aldactone Tab*) 100 mg PO DAILY [facility] Last Admin: 06/16/18 07:55 Dose: 100 mg Thiamine HCl (Vitamin B-1 Tab*) 100 mg PO DAILY [facility] Last Admin: 06/16/18 07:56 Dose: 100 mg Vital Signs - 8 hr 06/16/18 06/16/18 06/16/18 03:04 07:39 07:53 Temperature 97.8 F 97.7 F Pulse Rate 63 66 89 Respiratory 20 18 Rate Blood Pressure 101/53 106/72 110/60 (mmHg) O2 Sat by Pulse 100 99 Oximetry 06/16/18 08:00 Temperature Pulse Rate Respiratory 16 Rate Blood Pressure (mmHg) O2 Sat by Pulse Oximetry Oxygen Devices in Use Now: None Appearance: 78 yo M in nAD, AAOx3 Eyes: No Scleral Icterus, PERRLA Ears/Nose/Mouth/Throat: NL Teeth, Lips, Gums, Mucous Membranes Moist Neck: NL Appearance and Movements; NL JVP, Trachea Midline Respiratory: Symmetrical Chest Expansion and Respiratory Effort, Clear to Auscultation Cardiovascular: NL Sounds; No Murmurs; No JVD, RRR Abdominal: - - soft ascites, NT Lymphatic: No Cervical Adenopathy Extremities: No Clubbing, Cyanosis, - - +1 pitting pedal edema b/l Skin: No Nodules or Sclerosis Neurological: Alert and Oriented x 3, NL Muscle Strength and Tone Result Diagrams: 06/16/18 06:38 06/16/18 06:38 Microbiology and Other Data: Microbiology 06/09/18 23:54 Aerobic Blood Culture - Preliminary Blood Venous No Growth Day 1 Anaerobic Blood Culture - Preliminary No Growth Day 1 06/09/18 23:54 Aerobic Blood Culture - Preliminary Blood Venous No Growth Day 1 Anaerobic Blood Culture - Preliminary No Growth Day 1 EKG Data: ns no acute st t change Assess/Plan/Problems-Billing Assessment: this is a 78 yr old wm with 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 Ruiz unknown cause. -MELD = 13 s/p TIPS 02/2018 , under the care of DR. Looney (GI/hepatology from [facility]) -suspect that acitve GI bleed contributed to increased ammonia level. As D/w Dr. Ruiz pt will require transfer to [facility] for colonoscopy and definitive tx of bleeding polyps with cardiac backup avaliable. Pt was accepted to be transferred to [facility] and is on a waiting list (2) Hepatic encephalopathy Comment: resolved, ammonia is up today to 179, but pt is asymptomatic. will d/w GI -Continue with Lactulose and Xifaxan -U/A unremarkable -ascites fluid with no evidence of SBP, cx NTD (3) Acute blood loss anemia Comment: -S/P 4 units of PRBC transfusion from 06/04/18 to 06/05/18 -another 3 U on 06/11/18 -Due to known pedunculated colonic polyps in setting of needed DAPT (4) Ascites Comment: improved today -cont home spironolactone cont Lasix (5) CAD (coronary artery disease) Comment: -s/p stent in 10/15 with in stent restenosis dx in 03/17 and 3 more stents placed at that time at [facility] -Continue ASA,BB with hold parameters and statins -Pt had recent placement of KASSY as per d/w Dr. Olmedo who d/w Dr. Falcon ( [facility]) pt to be cont on ASA, Plavix stopped on 06/13/18 in anticipation of procedure in the near future (6) Chronic renal disease, stage 4, severely decreased glomerular filtration rate (GFR) between 15-29 mL/min/1.73 square meter Comment: at baseline (7) DVT (deep venous thrombosis) Comment: RLE; s/p IVC filter in 05/17 for RLE DVT (8) DVT prophylaxis Comment: -S/P recent IVC placement on 05/06/18 SCD's, due to ongoing GI bleed anticoagulants contraindicated Status and Disposition: Transfer to [facility]
--- NOTE | 2018-06-16 10:39 | PN ---
Progress Note - Progress Note Date of Service: 06/16/18 Note: pt seen and examined; events noted; long d/w pt and ; feels ok; no increased confusion; ammonia up; stools are now brown; off plavix since mon night; pt accepted for transfer to [place] 97.7, 110/60 NAD, chronically ill, a and o x 3 no asterixis distended abd; NT labs: Hgb 9, plts 112, inr 1.10, cr 1.94, bun 29 Anemia; bleeding from colon polyps, off plavix starting on , today is day # 3; transfer to [place] for polypectomy HSE; clinically stable despite increased ammonia; continue lactulose, xifaxan ascites; no diuretics, taps transfer at 11:30 am today Isaac Camap MD
== END 2018-06-16 11:50 | disposition short-term general hospital (02) | DRG 442 ==
LOC: ED 23:02 → MEDTELE 06-10 01:59 → MED 06-13 03:17
PROVIDERS: ADMIT Internal Medicine; ATTEND Internal Medicine
PROC: 30233N1 Transfusion of Nonautologous Red Blood Cells into Peripheral Vein, Percutaneous Approach (ICD-10-PCS; principal; 2018-06-11)
PROC: 0W9G3ZX Drainage of Peritoneal Cavity, Percutaneous Approach, Diagnostic (ICD-10-PCS; 2018-06-11)
DX: K72.90 Hepatic failure, unspecified without coma (principal); D62 Acute posthemorrhagic anemia; T85.590A Other mechanical complication of bile duct prosthesis, initial encounter; Q27.30 Arteriovenous malformation, site unspecified; R18.8 Other ascites; K92.1 Melena; N18.4 Chronic kidney disease, stage 4 (severe); K74.69 Other cirrhosis of liver; K63.5 Polyp of colon; I25.10 Atherosclerotic heart disease of native coronary artery without angina pectoris; K21.9 Gastro-esophageal reflux disease without esophagitis; K58.9 Irritable bowel syndrome, unspecified; Z96.1 Presence of intraocular lens; E78.5 Hyperlipidemia, unspecified; I12.9 Hypertensive chronic kidney disease with stage 1 through stage 4 chronic kidney disease, or unspecified chronic kidney disease; N40.0 Benign prostatic hyperplasia without lower urinary tract symptoms; I44.0 Atrioventricular block, first degree; I08.3 Combined rheumatic disorders of mitral, aortic and tricuspid valves; Y84.8 Other medical procedures as the cause of abnormal reaction of the patient, or of later complication, without mention of misadventure at the time of the procedure; Y92.9 Unspecified place or not applicable; G47.33 Obstructive sleep apnea (adult) (pediatric); D50.9 Iron deficiency anemia, unspecified; I95.9 Hypotension, unspecified; Z79.82 Long term (current) use of aspirin; Z90.49 Acquired absence of other specified parts of digestive tract; Z91.040 Latex allergy status; Z88.8 Allergy status to other drugs, medicaments and biological substances; Z91.048 Other nonmedicinal substance allergy status; Z91.09 Other allergy status, other than to drugs and biological substances; I25.2 Old myocardial infarction; Z95.0 Presence of cardiac pacemaker; Z99.81 Dependence on supplemental oxygen; Z85.51 Personal history of malignant neoplasm of bladder; Z98.42 Cataract extraction status, left eye; Z98.41 Cataract extraction status, right eye; Z82.49 Family history of ischemic heart disease and other diseases of the circulatory system; Z87.891 Personal history of nicotine dependence; Z72.89 Other problems related to lifestyle; Z95.5 Presence of coronary angioplasty implant and graft
CPT/HCPCS: 36415; 49082; 70450; 71045; 76705; 80048; 80053; 81003; 82042; 82140; 82150; 83605; 83690; 83735; 84100; 84157; 84484; 85025; 85027; 85610; 85730; 86140; 86850; 86900; 86901; 86922; 87040; 87086; 87205; 88112; 89051; 93005; 99284; A9270-GY; J1940; J2270; J2405; J3475; P9016; P9047

== ENCOUNTER 2018-06-23 10:55 | Inpatient (IN) | payer MEDICARE ==
--- NOTE | 2018-06-23 11:17 | ED ---
GI/ HPI - HPI Summary HPI Summary: The pt is a 78 y/o male presenting to [facility] c/o rectal bleeding characterized by bright red blood since 1 day ago. He had a colonoscopy on 4 days ago at [facility] to which he was transferred after being seen by Dr. Isaac Ruiz MD at [facility]. At [facility], they did a polypectomy. Upon discharge on Monday the pt noticed black stools. He notes weakness and chronic pedal edema but denies CP, N/V/D. He had two bowel movements today morning. Home Medications Medication Instructions Recorded Confirmed Type Aspirin EC TAB* [Ecotrin EC Low 81 mg PO DAILY 04/19/18 06/10/18 History Dose 81 MG*] Clopidogrel TAB* [Plavix TAB*] 75 mg PO DAILY 04/19/18 06/10/18 History Metoprolol Succinate XL TAB* 12.5 mg PO BID 04/19/18 06/10/18 History [Toprol XL TAB*] Rosuvastatin (NF) [Crestor (NF)] 40 mg PO DAILY 04/19/18 06/10/18 History Acetaminophen TAB* [Tylenol TAB*] 650 mg PO Q6H PRN tab 04/21/18 06/10/18 Rx Furosemide TAB* [Lasix TAB*] 40 mg PO DAILY 05/02/18 06/10/18 History Spironolactone 100 mg PO DAILY 05/02/18 06/10/18 History Docusate Sodium [Colace] 1 mg PO DAILY 05/17/18 06/10/18 History Pantoprazole TAB (NF) [Protonix 40 mg PO DAILY #30 tab 06/06/18 06/10/18 Rx TAB (NF)] - History of Current Complaint Chief Complaint: EDGIBleed Time Seen by Provider: 06/23/18 11:06 Stated Complaint: ABNORMAL BLEEDING Hx Obtained From: Patient, Family/Photographic Colorist Onset/Duration: Started Days Ago - 1 day, Still Present Timing: Intermittent Pain Intensity: 0 Associated Signs and Symptoms: Positive: Bright Red Blood w/Stool. Negative: Nausea, Vomiting, Diarrhea, Chest Pain - Additional Pertinent History Primary Care Physician: [id number] - Allergy/Home Medications Allergies/Adverse Reactions: Allergies Allergy/AdvReac Type Severity Reaction Status Date / Time Adhesive Tape Allergy Unknown Verified 06/23/18 11:03 Reaction Details horse dander Allergy Swelling Verified 06/23/18 11:03 Horse/Equine Containing Allergy Hives Verified 06/23/18 11:03 Products latex Allergy Unknown Verified 06/23/18 11:03 Reaction Details midodrine Allergy Unknown Verified 06/23/18 11:03 Reaction Details HORSE SERUM Allergy Severe Swelling, Uncoded 06/23/18 11:03 hives Home Medications: Home Medications Ciprofloxacin HCl [Cipro] 1 tab PO BID 06/23/18 [History Confirmed 06/23/18] Folic Acid TAB* [Folvite TAB*] 1 tab PO DAILY 06/23/18 [History Confirmed ] Lactulose 1 dose PO QID 06/23/18 [History Confirmed 06/23/18] RiFAXimin* [Xifaxan*] 1 tab PO BID 06/23/18 [History Confirmed 06/23/18] Simethicone TAB* [Mylicon TAB*] 1 tab PO TID PRN 06/23/18 [History Confirmed ] Thiamine TAB* [Vitamin B-1 TAB 100 MG*] 1 tab PO DAILY 06/23/18 [History Confirmed 06/23/18] PMH/Surg Hx/FS Hx/Imm Hx Endocrine/Hematology History: Reports: Hx Anticoagulant Therapy, Hx Anemia, Hx Unexplained Bleeding Cardiovascular History: Reports: Hx Angina, Hx Coronary Artery Disease, Hx Hypercholesterolemia, Hx Hypertension, Hx Myocardial Infarction, Hx Pacemaker/ ICD - pacemaker Respiratory History: Reports: Hx Sleep Apnea - current CPAP user GI History: Reports: Hx Cirrhosis, Hx Gastroesophageal Reflux Disease, Hx Irritable Bowel, Other GI Disorders - brijesh'y, jessika'y History: Reports: Other Problems/Disorders - weak bladder s/p bladder cancer, colon polyps Musculoskeletal History: Reports: Other Musculoskeletal History - hammer toes, both feet, had sx. Denies: Hx Rheumatoid Arthritis Sensory History: Reports: Hx Contacts or Glasses Denies: Hx Deafness, Hx Hearing Aid, Other Sensory Impairments Opthamlomology History: Reports: Hx Contacts or Glasses Denies: Other Sensory Impairments Neurological History: Denies: Hx Headaches, Hx Seizures, Hx Transient Ischemic Attacks (TIA) Psychiatric History: Denies: Hx Autism, Hx Schizophrenia - Cancer History Cancer Type, Location and Year: bladder cancer Hx Chemotherapy: No - Surgical History Surgery Procedure, Year, and Place: cataract surgery with lens implants bilat eyes. hammer toe repair bilat feet. appendectomy. cholecystectomy Hx Anesthesia Reactions: No - Immunization History Date of Tetanus Vaccine: unk Date of Influenza Vaccine: fall 2017 Infectious Disease History: No Infectious Disease History: Denies: Traveled Outside the [place] in Last 30 Days - Family History Known Family History: Positive: Cardiac Disease Negative: Hypertension, Diabetes - Social History Occupation: Retired Lives: With Family Alcohol Use: Occasionally Alcohol Amount: none since August when issues started Substance Use Type: Reports: None Hx Tobacco Use: No Smoking Status (MU): Former Smoker Type: Cigarettes Have You Smoked in the Last Year: No Review of Systems Negative: Chest Pain Gastrointestinal: Negative - Constipation, Other - Positive: Black stool, bright red blood in stool Negative: Vomiting, Diarrhea, Nausea Positive: Edema - Chronic pedal edema Positive: Weakness All Other Systems Reviewed And Are Negative: Yes Physical Exam - Summary Physical Exam Summary: Appearance: Well appearing, no pain distress Skin: warm, dry, reflects adequate perfusion Head/face: normal Eyes: EOMI, MANJULA, pale conjunctiva ENT: normal Neck: supple, non-tender Respiratory: CTA, breath sounds present Cardiovascular: RRR, pulses symmetrical Abdomen: non-tender, soft, No fresh blood on rectal exam Musculoskeletal: normal, strength/ROM intact Neuro: normal, sensory motor intact, A&Ox3 Triage Information Reviewed: Yes Vital Signs On Initial Exam: Initial Vitals Temp Pulse Resp BP Pulse Ox 97.4 F 66 16 89/42 100 06/23/18 10:59 06/23/18 10:59 06/23/18 10:59 06/23/18 10:59 06/23/18 10:59 Vital Signs Reviewed: Yes Diagnostics - Vital Signs Vital Signs Temp Pulse Resp BP Pulse Ox 06/23/18 10:59 97.4 F 66 16 89/42 100 - Laboratory Result Diagrams: 06/23/18 11:28 06/23/18 11:28 Lab Statement: Any lab studies that have been ordered have been reviewed, and results considered in the medical decision making process. - EKG 11:33 Cardiac Rate: NL - 67 bpm Summary of EKG Findings: Ventricular-paced rhythm. GIGU Course/Dx - Course Course Of Treatment: A 78 year-old M presents to the ED with a CC of GI bleeding characterized by bright red blood since 1 day ago s/p a colonoscopy 4 days ago. He notes weakness, black stools and chronic pedal edema but denies CP , N/V/D and constipation. A physical exam revealed pale conjunctiva and no fresh blood on rectal exam. An EKG reveals ventricular paced rhythm. In the ED course, the pt was given N.s 0.9% 1000 ml IV, Pantoprazole 80 mg in 250 ml IVPB and Octreotide 550 mcg in 150 ml N.s 0,9% IVPB which improved the symptoms. I discussed the care of the patient with Dr. Isaac Ruiz MDgastroenterologist who recommended admitting the patient. The hospitalist agreed to admit the pt. Patient will be admitted with a final Dx of GI bleed status post polypectomy.Pt is agreeable with this plan. Allergies noted. - Diagnoses Differential Diagnoses - Male: Dehydration, Other - gi bleeding/anemia Provider Diagnoses: GI (gastrointestinal bleed), Anemia, Renal failure - Physician Notifications Discussed Care Of Patient With: Isaac Ruiz - Sprigger Time Discussed With Above Provider: 11:55 Instructed by Provider To: Admit As Inpatient - 12:19- Dr. Campa agreed to admit the pt. - Critical Care Time Critical Care Time: 30-74 min - 30 minutes Discharge - Sign-Out/Discharge Documenting (check all that apply): Patient Departure - Admit - Discharge Plan Condition: Stable Disposition: ADMITTED TO [facility] - Billing Disposition and Condition Condition: STABLE Disposition: Admitted to [facility] - Attestation Statements Document Initiated by Giae: Yes Documenting Scribe: Tyesha Vidales Provider For Whom Shakeel is Documenting (Include Credential): Dr. Prashanth Cadena MD Scribe Attestation: Tyesha Lal scribed for Dr. Prashanth Cadena MD on 06/23/18 at 1514. Scribe Documentation Reviewed: Yes Provider Attestation: The documentation as recorded by the Tyesha carvajal accurately reflects the service I personally performed and the decisions made by me, Dr. Prashanth Cadena MD
[2018-06-23] MEDS ORDERED: NS 0.9% 1000 ML* 1,000 ML IV ONE (11:19)
[2018-06-23] MEDS ORDERED: Pantoprazole* 80 mg IN NS 80 MG/250 ML BAG IVPB ONE (11:19)
[2018-06-23] MEDS ORDERED: Pantoprazole IV* 40 MG IV ONE (11:19)
[2018-06-23 11:41] LABS: ABS Basophils 0 10^3/ul (0-0.2); ABS Eosinophils 0.1 10^3/ul (0-0.6); ABS Lymphocytes 0.7 10^3/ul (1.0-4.8); ABS Monocytes 0.3 10^3/ul (0-0.8); ABS Neutrophils 1.9 10^3/ul (1.5-7.7); ABS Nucleated RBC 0 10^3/ul; Eosinophil % 4.1 % (0-6); Hematocrit 23 % (42-52); Hemoglobin 7.5 g/dl (14.0-18.0); Lymphocyte % 22.9 % (25-47); Mean Corpuscular HGB Conc 33 g/dl (31-36); Mean Corpuscular Hemoglobin 31 pg (27-31); Mean Corpuscular Volume 93 fL (80-94); Mean Platelet Volume 6.5 fL (7.4-10.4); Nucleated Red Blood Cells % 0; Platelet Count 191 10^3/ul (150-450); Red Blood Count 2.43 10^6/ul (4.00-5.40); Red Cell Distribution Width 21 % (10.5-15)
[2018-06-23 11:50] LABS: INR 0.98 (0.77-1.02)
[2018-06-23 11:57] LABS: EGFR Non-African American 31.7 (>60)
[2018-06-23] MEDS ORDERED: Octreotide Acetate* 50 MCG in NS 0.9% 50 ML* 50 ML IVPB ONE (12:30)
[2018-06-23] MEDS ORDERED: Octreotide Acetate* 500 MCG in NS 0.9% 100 ML* 100 ML IVPB SCH ×2 (12:30→14:00)
[2018-06-23] MEDS ORDERED: Ondansetron INJ* 2 MG/ML VIAL IV PRN (13:04)
[2018-06-23] MEDS ORDERED: Acetaminophen TAB* 325 MG PO PRN (13:04)
[2018-06-23] MEDS ORDERED: Simethicone TAB* 80 MG TAB.CHEW PO PRN (13:07)
[2018-06-23] MEDS ORDERED: Furosemide IV* 10 MG/ML 2 ML VIAL (20 MG) IV SLOW PU ONE (13:27)
[2018-06-23] MEDS ORDERED: cefTRIAXone VIAL(*) 1,000 MG in NS 0.9% 50 ML* 50 ML IVPB SCH (14:00)
[2018-06-23] MEDS ORDERED: Pantoprazole* 80 mg IN NS 80 MG/250 ML BAG IVPB SCH (14:00)
[2018-06-23] MEDS: Lactulose* 15 ML UDC PO SCH ×2 (17:27→21:57)
[2018-06-23 18:27] LABS: Hematocrit 25 % (42-52); Hemoglobin 8.6 g/dl (14.0-18.0)
--- NOTE | 2018-06-23 19:18 | HP ---
CC: Dr. Olmedo; Dr. Ruiz; Dr. Johnston * HISTORY AND PHYSICAL: DATE OF ADMISSION: 06/23/18 MY ATTENDING PHYSICIAN WHILE IN THE HOSPITAL: Bryan Campa MD * (report dictated by Gilbert Moncada NP). CHIEF COMPLAINT: Bright red blood per rectum. HISTORY OF PRESENT ILLNESS: Mr. Ashford is a 78-year-old male patient, who has had quite a turbulent course since the February of this year. He in short had a TIPS procedure done in February. While there, he had an MO. This was done at [facility]. He was found to have a re-in-stent stenosis from a stent that was placed in September of 2017. Three more drug-eluting stents were put in in February. Since then, he has had intermittent lower GI bleed, which was presumed to be secondary to a polyp. He was most recently admitted on 06/10/18 and he was transferred to [place] on 06/13/18. He went up to [place] and according to the patient he had a polypectomy. He was discharged on 06/20/18. He had 11 polyps removed, we are getting records, and he was told to restart his Plavix on , 06/21/18. He started taking the Plavix on , . On 06/22/18 and 06/23/18, he noted that he has had about 5 bloody bowel movements, maroon in color and at times ronald blood. He has not had any more episodes here in the ED. He does state that he is feeling somewhat fatigued and weak, but he denies any chest pain or shortness of breath. He does carry a history of hepatic encephalopathy that is why he had the TIPS. He has a history of cryptogenic liver cirrhosis. He has had GI bleed, CAD, sick sinus syndrome, SALEEM, history of DVT with now status post IVC filter, and a history of monoclonal gammopathy. He again restarted the Plavix like as he was instructed , but unfortunately started developing bright red blood per rectum. He denies any abdominal discomfort. Denies having any chest pain, shortness of breath. No fevers or chills. It was noted when he came in here that his hemoglobin was 7.5 and at times when he is not bleeding, he runs between 9 and 10, so because of these findings and the GI bleed, we were asked to evaluate for admission. PAST MEDICAL HISTORY: Significant for: 1. Hepatic encephalopathy. 2. History of recurrent GI bleeds. 3. Cryptogenic liver cirrhosis. 4. CAD. 5. Sick sinus syndrome. 6. SALEEM. 7. Anemia. 8. DVT. 9. Monoclonal gammopathy. PAST SURGICAL HISTORY: 1. He has had TIPS. 2. He has had heart catheterization x2, most recently in February, 3 stents. 3. Pacemaker insertion. 4. Polypectomy, which was just done at [place] last week, we are getting records. 5. IVC filter placement. 6. Laparoscopic cholecystectomy. HOME MEDICATIONS: Include: 1. Cipro 1 tablet p.o. b.i.d. 2. Folic acid 1 tablet p.o. daily. 3. Tylenol 650 mg every 6 hours as needed. 4. Thiamine 1 tablet p.o. daily. 5. Simethicone 1 tablet p.o. t.i.d. as needed. 6. Rifaximin 1 tablet p.o. b.i.d. 7. Spironolactone 100 mg daily. 8. Protonix 40 mg daily. 9. Toprol-XL 12.5 mg p.o. b.i.d. 10. Lasix 40 mg daily. 11. Colace 1 tablet p.o. daily. 12. Aspirin 81 mg daily. 13. Crestor 40 mg daily. 14. Lactulose 1 dose p.o. q.i.d. ALLERGIES TO MEDICATIONS: Include . FAMILY HISTORY: He says his mother when she was 25 during childbirth. Father had a history of cancer. SOCIAL HISTORY: He does not smoke. He does not drink. 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 Surrogate decision maker is his . REVIEW OF SYSTEMS: There is no documented fever. He denies having any significant weight change. There is no double vision. He denies having any ear discharge. There was no rhinorrhea. There was no sore throat. There was no thyroid enlargement. Denies having any chest pain. There was no orthopnea. There was no nocturnal dyspnea. He denies having any abdominal pain. There is no dysuria, no frequency. No seizure. There is no loss of consciousness. No pruritus and no skin ulcerations. Review of 14 systems was completed, all others negative. PHYSICAL EXAMINATION GENERAL: At this time, Mr. Ashford is a 78-year-old male patient. He is sitting in the ED stretcher. He does not appear to be in any acute distress. He appears to be well nourished and well developed. VITAL SIGNS: Blood pressure 118/60, pulse 62, respirations 18, O2 sat 98%, temperature 97.4. When he did present, his blood pressure was 89/42. HEENT: Head: Atraumatic and normocephalic. Eyes: EOMs are intact. His sclerae were anicteric and not pale. Throat: Oral mucosa appears to be moist. No oropharyngeal erythema. NECK: Supple. LUNGS: Clear to auscultation. There were no wheezes, rales, or rhonchi. HEART: Sounds S1, S2. He had a regular rate and rhythm. No murmurs, rubs, or gallops. ABDOMEN: It was soft. It was flat, nontender. Bowel sounds were present. EXTREMITIES: Pulses were 2+ throughout. Moving all 4 extremities with 5/5 strength. NEUROLOGIC: He is awake, alert, and oriented x3. Tongue midline. Mobile Home Servicer were equal. He had no gross focal deficits. SKIN: Intact. DIAGNOSTIC STUDIES/LAB DATA: WBC of 3.0; RBC of 2.43; hemoglobin of 7.5, again his baseline hemoglobin is noted to be right between 9 and 10; hematocrit 23; platelet count of 191. INR of 0.98, PTT of 31.8. His sodium was 133; potassium was 4.5; chloride of 110; bicarb 22; BUN 34; creatinine of 2.05, his baseline is 1.9; his glucose was 110; lactic 1.4; calcium 9.8. Total bili 0.5, AST 39, ALT 27, alk phos 127. Troponin 0.00. Albumin 2.6, lipase 102. He did have an EKG obtained today, which revealed a ventricularly paced rhythm, rate of 67. He has an echo from September of this year with an EF of 60% to 65%. Old medical records were reviewed. ASSESSMENT AND PLAN: Mr. Ashford is a complex 78-year-old male patient who has had recurrent gastrointestinal bleed in the setting of having drug-eluting stents placed in February of 2018. The gastrointestinal bleeds were presumed to be secondary polyps. He underwent a polypectomy via endoscopy in [place] last week, we are getting those records, presenting again today after starting Plavix on , having bright red blood per rectum. He will be admitted under inpatient status for: 1. Presumed lower gastrointestinal bleed from polypectomy sites. I did touch base with Dr. Ruiz and Dr. Olmedo. Plan will be to keep the patient. We will stop his Plavix. We will continue his baby aspirin. I will go ahead and get 2 IVs. ED did start Protonix and octreotide, which I do not think is necessary and Dr. Ruiz agreed. We will discontinue these. We will transfuse him 2 units of blood, place him in the intensive care to monitor him closely, and we will get Cardiology consult. We will give 20 of Lasix between the 2 units of blood and we will monitor him. Hopefully, again, this will stop on its own, but again if needed, he will undergo endoscopy here with Dr. Ruiz and we will continue to follow him. Transfuse as indicated with serial H and Hs. 2. Hepatic encephalopathy. Continue meds as prescribed. He does not appear to be encephalopathic at this point, but we will need to be on the watch out for this given the bleeding. 3. History of cryptogenic liver cirrhosis. Follow up with his primary. Continue with his current medical regimen. His Lasix and his spironolactone have been ordered. 4. Coronary artery disease. He will be on aspirin. He will be on beta- paramjit. I have switched him from metoprolol succinate to metoprolol tartrate in the setting of acute illness. We can restart his Toprol-XL after the bleeding has stopped and we will also continue his statin. With the recent stents, I do have a consult placed to Cardiology. 5. Hyperlipidemia. Continue statin therapy. 6. History of deep venous thrombosis. Again, in the setting of acute bleeding , he will just be on SCDs for prevention. He does have an IVC filter. We will monitor. 7. Obstructive sleep apnea. I have ordered CPAP. 8. Anemia. We will follow his H and H. 9. Sick sinus syndrome. He has a pacemaker. 10. Monoclonal gammopathy. Follow up with his PCP. 11. DVT prophylaxis: SCDs have been ordered. 12. Code status: Full code. 13. Fluids, electrolytes, and nutrition: Clear liquid diet. TIME SPENT: Time spent on the admission was 60 minutes, greater than half of the time was spent [id number] with the patient obtaining my history and physical, other half of the time was spent going over the plan of care with the patient and implementing plan of care. I did discuss the plan of care with my attending, Dr. Campa; he is in agreement. GILBERT MONCADA, OTOLARYNGOLOGY NURSE [id number]/[facility] #: [id number] GALO
--- NOTE | 2018-06-23 20:24 | CONS ---
CC: Dr. Ruiz; Hospitalist Service; Dr. Johnston CONSULTATION REPORT: DATE OF CONSULT: 06/23/18 REASON FOR CONSULT: Acute GI bleeding, assistance with management of Plavix. HISTORY OF PRESENT ILLNESS: Mr. Ashford is a 78-year-old gentleman, whom I see for coronary artery d isease and third-degree heart block with pacemaker. The patient has idiopathic cirrhosis, which has required multiple recurrent paracenteses and he has a lso had chronic recurrent GI bleeding requiring transfusions. The patient was pretty stable with all of this until his pacemaker battery hit replacement and the mo de switched from AV sequential to ventricular pacing. The generator was changed, but he developed an ginal symptoms with this and he underwent cardiac catheterization, 09/28/17 and underwent bare-metal stenting to the 95% occlusions of the circumflex. He was on medical management for moderate disease in the LAD up to 50%. The patient had anginal symptoms following his bare-metal stent and these did progress and in February of this year a stress test was abnormal suggesting restenosis of the circumflex. At that point, he w as in need of a TIPS procedure and the decision was made to proceed with a TIPS knowing he was at [facility] for ischemia, but it was felt it would be single vessel. Following the TIPS, he had a non-Q-wave M I and at that point underwent repeat cardiac catheterization at [facility] with Dr. Miki Falcon and was fou nd to have 95% reocclusion in the region of the stent, circumflex has then received 2 Synergy drug-el uting stents and additionally his ostial LAD had an 80% occlusion (FFR 0.84) and he received 2 Synerg y drug- eluting stents to the LAD as well. The patient was placed on Plavix. He initially did well, but then developed increasing transfusion needs. Colonoscopy revealed multiple large polyps, but th ere was concern on GI's part about holding the Plavix. Direct communications between me and Dr. Jared Falcon, had stated it would be okay to hold the Plavi x temporarily to allow for procedural removal of polyps and then resume. This was delayed, but again the patient had more GI bleeding, melena and more transfusion requirements and therefore the patient 's Plavix was held and he was transferred to [facility] and early this week, his polyps were removed (Monday). The patient initially did well, was sent home Monday on , he felt well, but yesterday and today he started having bright red blood per rectum and it was increasi ng. He presented to the emergency room and today he is found to be quite anemic. The patient denies chest pain, pressure, heaviness, orthopnea, or PND. He just is weak. He denies feeling any abdomin al discomfort, no cramping. The patient's leg swelling is improved over time and his abdominal girth has not increased recently. PAST MEDICAL HISTORY: The patient has a past medical history of: 1. Coronary artery disease, bare-metal stents to the circumflex September 2017, Synergy drug-eluting mathieu nts to restenosis of the circumflex and to the LAD 03/29/18. 2. Cirrhosis of the liver, status post TIPS. 3. Portal hypertension. 4. Chronic ascites. 5. Gastrointestinal polyps, status post endoscopy, removal earlier this week. 6. Third-degree heart block with dual-chamber pacemaker. 7. Dyslipidemia. 8. Renal insufficiency. 9. Anemia. 10. Benign prostatic hypertrophy. 11. Encephalitis, May 2018. MEDICATIONS: Current outpatient medications had included: 1. Plavix 75 mg a day. 2. Aspirin 81 mg a day. 3. Lipitor 80 mg a day. 4. Lasix 40 mg a day. 5. Lactulose 15 mL a day. 6. Lopressor 12.5 mg b.i.d. 7. Aldactone 100 mg a day. 8. Xifaxan. ALLERGIES: Include HORSE PRODUCTS and LASIX. FAMILY HISTORY: Significant for his brother of colon cancer and he has a father who of mounika dder cancer. 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 No history of alcohol or tobacco use. He has a brother in the area. REVIEW OF SYSTEMS: See history of present illness. All other 14-point review of systems was unremar kable. Again, no history of angina, orthopnea, PND. No dizziness. PHYSICAL EXAM: The patient is an older gentleman, lying flat, in no acute distress. He is 5 feet 11 inches, weighs 203 pounds with a BMI of 28. Vitals: Blood pressure 102/54, pulse is 70, oxygen satu ration is 99% on room air, respiratory rate was 16. Blood pressure ranges 89/42 to 118/60. HEENT: Mucous membranes moderately moist. Pupils are equal and round. Neck without increased JVP appreciat ed. No lymphadenopathy or thyromegaly. Neurologically, awake, alert, and oriented to person, place, and time. Grossly normal sensory and motor function in the upper and lower extremities with normal gait. Psychologically, pleasant and cooperative, charming as usual. Skin: Warm, dry, better color than expected, although eye conjunctivae a bit pale. Respirations clear with good effect. No wheeze s, rales, or rhonchi. Coronary: S1, S2, regular without murmurs or rubs. Abdomen: Distended and co nsistent with fluid-filled, but not beyond normal. Lower extremities showed 2 to 3+ pitting edema, s oft. DIAGNOSTIC STUDIES/LAB DATA: White count 3, hemoglobin 7.5, hematocrit 23, platelets 191. INR 0.98, PTT 32. Sodium 138, potassium 4.3, chloride 110, bicarb 22, BUN 34, creatinine 2.05, glucose 110. AST 38, ALT 27, alk phos 127. Ammonia 74. Troponin #1 is 0.00. A 12-lead ECG shows normal sinus rhythm, 67 beats a minute with ventricular pacing, ST unremarkable a nd appears at baseline. IMPRESSION AND PLAN: In summary, Mr. Ashford is a 78-year-old gentleman, who underwent multiple larg e polyps removal earlier this week, with Plavix had been held for a week prior. He has undergone gary g-eluting stents, 03/29/18, 4 to the LAD and circumflex. The patient now presents with bright red blood per rectum after 4 doses of Plavix. I recommend stopping the Plavix and leaving it off for 7 to 10 days. The hospitalists are arranging for transfusions and GI is going to evaluate the patient. I think the patient needs a longer time for platelet plugging. Fortunately, he has had no recurrence of his angina. His EKGs are reassuring and his troponins have been reassuring. I think the risk of going on the Plavix is greater than the risk of staying off it at this point. We will follow the patient during this admission. [id number]/[facility] #: [id number]
[2018-06-23] MEDS ORDERED: Metoprolol Succinate XL TAB* 25 MG PO SCH ×2 (21:00)
[2018-06-23] MEDS ORDERED: Ciprofloxacin TAB* 500 MG PO SCH (21:00)
[2018-06-23] MEDS: Metoprolol Tartrate TAB* 25 MG PO SCH (21:57)
[2018-06-23] MEDS: RiFAXimin* 550 MG TAB PO SCH (22:04)
[2018-06-24 00:27] LABS: Hematocrit 30 % (42-52)
[2018-06-24 05:39] LABS: ABS Basophils 0.1 10^3/ul (0-0.2); ABS Eosinophils 0.2 10^3/ul (0-0.6); ABS Lymphocytes 0.7 10^3/ul (1.0-4.8); ABS Monocytes 0.3 10^3/ul (0-0.8); ABS Neutrophils 1.5 10^3/ul (1.5-7.7); ABS Nucleated RBC 0 10^3/ul; Eosinophil % 5.8 % (0-6); Hematocrit 30 % (42-52); Hemoglobin 10.2 g/dl (14.0-18.0); Lymphocyte % 25.4 % (25-47); Mean Corpuscular HGB Conc 34 g/dl (31-36); Mean Corpuscular Hemoglobin 31 pg (27-31); Mean Corpuscular Volume 91 fL (80-94); Mean Platelet Volume 6.7 fL (7.4-10.4); Nucleated Red Blood Cells % 0.1; Platelet Count 167 10^3/ul (150-450); Red Blood Count 3.29 10^6/ul (4.00-5.40); Red Cell Distribution Width 20 % (10.5-15); White Blood Count 2.7 10^3/ul (3.5-10.8)
[2018-06-24 05:48] LABS: INR 1.04 (0.77-1.02)
--- NOTE | 2018-06-24 08:38 | PN ---
Progress Note - Progress Note Date of Service: 06/24/18 SOAP: Subjective: []feels well, no abd pain; no n/v; +bms......pt describes as brown; no evidence for bleeding overnight Objective: []VS: 98.0, 98/49, 55, 98% nad, a and o x 3 +bs, soft, ND/NT labs: hgb 10.2, 10.0, 8.6, 7.5....s/p 3U PRBC bun 32, cr 1.98, plts 167 Assessment: []78 yo male s/p colonoscopy on at [place], with polypectomy (large) x 11, 5 clips placed; restarted plavix 2 d later; brb on , Monday; decreased hgb; no active bleeding now; hgb ok; will hold on colonoscopy and prep for now; monitor stools, may need to intervene if brb; will follow close, advance diet, recheck cbc debbie Ruiz MD Plan: []
[2018-06-24] MEDS ORDERED: Docusate CAP* 100 MG PO SCH (09:00)
--- NOTE | 2018-06-24 09:01 | PN ---
Subjective Date of Service: 06/24/18 Interval History: Pt is feeling ok this AM. No further BRBPR. His most recent stool was brown. He denies any chest pain. No SOB. He does state he has some very mild abdominal cramping-feels it mostly in the low abdomen. Objective Active Medications: Acetaminophen (Tylenol Tab*) 650 mg PO Q4H PRN PRN Reason: FEVER/PAIN Aspirin (Aspirin Ec Tab*) 81 mg PO DAILY [facility] Atorvastatin Calcium (Lipitor*) 80 mg PO DAILY [facility] Docusate Sodium (Colace Cap*) 1 mg PO DAILY [facility] Folic Acid (Folvite Tab*) 1 mg PO DAILY [facility] Furosemide (Lasix Tab*) 40 mg PO DAILY [facility] Ceftriaxone Sodium 1,000 mg/ (Sodium Chloride) 50 mls @ 200 mls/hr IVPB Q24H [facility] Last Admin: 06/23/18 14:36 Dose: 200 mls/hr Lactulose (Lactulose*) 15 ml PO QID [facility] Last Admin: 06/23/18 21:57 Dose: Not Given Metoprolol Tartrate (Lopressor Tab*) 12.5 mg PO Q12HR [facility] Last Admin: 06/23/18 21:57 Dose: Not Given Ondansetron HCl (Zofran Inj*) 4 mg IV Q6H PRN PRN Reason: NAUSEA Rifaximin (Xifaxan*) 550 mg PO BID [facility] Last Admin: 06/23/18 22:04 Dose: 550 mg Simethicone (Mylicon Tab*) 80 mg PO TID PRN PRN Reason: ind Spironolactone (Aldactone Tab*) 100 mg PO DAILY [facility] Thiamine HCl (Vitamin B-1 Tab*) 100 mg PO DAILY [facility] Vital Signs - 8 hr 06/24/18 06/24/18 06/24/18 01:00 01:01 01:31 Temperature Pulse Rate 61 57 64 Respiratory 14 20 19 Rate Blood Pressure 80/42 96/49 (mmHg) O2 Sat by Pulse 97 99 98 Oximetry 06/24/18 06/24/18 06/24/18 02:00 02:01 02:30 Temperature Pulse Rate 57 61 55 Respiratory 15 15 16 Rate Blood Pressure 93/32 116/54 (mmHg) O2 Sat by Pulse 98 98 97 Oximetry 06/24/18 06/24/18 06/24/18 03:00 03:28 03:31 Temperature 98.5 F Pulse Rate 57 52 Respiratory 20 13 Rate Blood Pressure 96/50 87/34 (mmHg) O2 Sat by Pulse 99 98 Oximetry 06/24/18 06/24/18 06/24/18 03:59 04:00 04:01 Temperature Pulse Rate 54 54 Respiratory 11 14 Rate Blood Pressure 102/46 (mmHg) O2 Sat by Pulse 97 98 98 Oximetry 06/24/18 06/24/18 06/24/18 04:30 04:32 04:59 Temperature Pulse Rate 53 62 Respiratory 15 20 15 Rate Blood Pressure 79/36 81/32 (mmHg) O2 Sat by Pulse 98 98 Oximetry 06/24/18 06/24/18 06/24/18 05:00 05:01 05:30 Temperature Pulse Rate 65 63 61 Respiratory 20 19 19 Rate Blood Pressure 92/52 108/49 (mmHg) O2 Sat by Pulse 97 97 98 Oximetry 06/24/18 06/24/18 06/24/18 06:00 06:30 07:00 Temperature Pulse Rate 59 58 65 Respiratory 21 15 14 Rate Blood Pressure 96/44 99/44 121/66 (mmHg) O2 Sat by Pulse 95 97 100 Oximetry 06/24/18 06/24/18 06/24/18 07:01 07:30 08:00 Temperature Pulse Rate 62 59 57 Respiratory 16 13 13 Rate Blood Pressure 103/55 76/29 (mmHg) O2 Sat by Pulse 99 99 97 Oximetry 06/24/18 06/24/18 06/24/18 08:05 08:12 08:31 Temperature 98.5 F Pulse Rate 55 62 Respiratory 19 20 Rate Blood Pressure 93/49 98/51 (mmHg) O2 Sat by Pulse 98 98 Oximetry Oxygen Devices in Use Now: None, CPAP Appearance: Elderly male lying in bed, NAD Eyes: No Scleral Icterus Ears/Nose/Mouth/Throat: Mucous Membranes Moist Respiratory: Symmetrical Chest Expansion and Respiratory Effort, Clear to Auscultation - diminished breath sounds throughout Cardiovascular: NL Sounds; No Murmurs; No JVD - heart sounds are difficult to appreciate, RRR, - - 1-2+ B/L LE edema Abdominal: - - BS+ soft, NT, mildly distended Extremities: No Clubbing, Cyanosis Skin: No Nodules or Sclerosis Neurological: Alert and Oriented x 3 Result Diagrams: 06/24/18 05:25 06/24/18 05:25 Microbiology and Other Data: Microbiology 06/23/18 14:40 Nasal Screen MRSA (PCR) - Final Nasal Mrsa Not Detected 06/23/18 11:16 Stool Occult Blood (SUJEY) - Final Stool Assess/Plan/Problems-Billing Mr Ashford is a 78 yo M with a complicated history of non cirrhotic portal hypertension s/p TIPS in 02/2018 at which time he also suffered from AMI requiring 4 stents to be placed and was subsequently started on plavix. Since initiating plavix he has been requiring frequent blood transfusions as he was bleeding from 11 large polyps which were removed on 06/19/18 while off plavix, resumed plavix on 06/21/18 and developed BRBPR by the evening of 06/21/18. Mr Ashford was admitted for management of acute blood loss anemia secondary to lower GI bleed. - Patient Problems (1) Lower GI bleed Current Visit: Yes Status: Acute Code(s): K92.2 - GASTROINTESTINAL HEMORRHAGE, UNSPECIFIED SNOMED Code(s): 24307821 Comment: Pt with lower GI bleed likely secondary to bleeding from polypectomy site. Appreciate GI input. Dr. Ruiz and I discussed holding plavix x 1 week. Monitoring for BRBPR and if no further bleeding no need for colonoscopy. Follow up H/H this evening. (2) Acute blood loss anemia Current Visit: Yes Status: Acute Code(s): D62 - ACUTE POSTHEMORRHAGIC ANEMIA SNOMED Code(s): 760040514 Comment: S/P 3 unit transfusion overnight. H/H appropriately increased. Follow up CBC tonight and again tomorrow. (3) Portal hypertension Current Visit: Yes Status: Acute Code(s): K76.6 - PORTAL HYPERTENSION SNOMED Code(s): 36819542 Comment: Per Dr. Ruiz pt has non-cirrhotic portal hypertension. Continue lasix, spironolactone. He is s/p TIPS in 02/2018. He had an episode of encephalopathy earlier this month. Will continue lactulose 15ml po QID. (4) CAD (coronary artery disease) Current Visit: Yes Status: Acute Code(s): I25.10 - ATHSCL HEART DISEASE OF [place] CORONARY ARTERY W/O ANG PCTRS SNOMED Code(s): 02848472 Comment: Pt s/p AMI with in stent restenosis 02/2018. Continue ASA, lipitor, off metoprolol as his BP is soft. Plavix cautiously on hold for 1 week given acute GI bleed post polypectomy. (5) DVT (deep venous thrombosis) Current Visit: Yes Status: Acute Code(s): I82.409 - ACUTE EMBOLISM AND THOMBOS UNSP DEEP VN UNSP LOWER EXTREMITY SNOMED Code(s): 000177628 Comment: Pt dx with acute non-occlusive R popliteal DVT in 04/2018. IVC filter placed 05/06/18. (6) CKD (chronic kidney disease) Current Visit: Yes Status: Chronic Code(s): N18.9 - CHRONIC KIDNEY DISEASE, UNSPECIFIED SNOMED Code(s): 424136917 Comment: Creatinine at baseline of 1.9-2.1. Continue to monitor creatnine and avoid nephrotoxic agents. (7) SALEEM (obstructive sleep apnea) Current Visit: Yes Status: Acute Code(s): G47.33 - OBSTRUCTIVE SLEEP APNEA ( ADULT) (PEDIATRIC) SNOMED Code(s): 99759587 Comment: Continue CPAP-pt has his own equipment (8) Full code status Current Visit: Yes Status: Acute Code(s): Z78.9 - OTHER SPECIFIED HEALTH STATUS SNOMED Code(s): 227127094
--- NOTE | 2018-06-24 09:26 | PN ---
Subjective Date of Service: 06/24/18 - CC: Bright red blood per rectum Interval History: No chest pain. BRBPR no longer present, dark stool replaces. No orthopnea, no PND, not dizzy Medications Active Medications: Acetaminophen (Tylenol Tab*) 650 mg PO Q4H PRN PRN Reason: FEVER/PAIN Aspirin (Aspirin Ec Tab*) 81 mg PO DAILY [facility] Atorvastatin Calcium (Lipitor*) 80 mg PO DAILY [facility] Docusate Sodium (Colace Cap*) 1 mg PO DAILY [facility] Folic Acid (Folvite Tab*) 1 mg PO DAILY [facility] Furosemide (Lasix Tab*) 40 mg PO DAILY [facility] Ceftriaxone Sodium 1,000 mg/ (Sodium Chloride) 50 mls @ 200 mls/hr IVPB Q24H [facility] Last Admin: 06/23/18 14:36 Dose: 200 mls/hr Lactulose (Lactulose*) 15 ml PO QID [facility] Last Admin: 06/23/18 21:57 Dose: Not Given Metoprolol Tartrate (Lopressor Tab*) 12.5 mg PO Q12HR [facility] Last Admin: 06/23/18 21:57 Dose: Not Given Ondansetron HCl (Zofran Inj*) 4 mg IV Q6H PRN PRN Reason: NAUSEA Rifaximin (Xifaxan*) 550 mg PO BID [facility] Last Admin: 06/23/18 22:04 Dose: 550 mg Simethicone (Mylicon Tab*) 80 mg PO TID PRN PRN Reason: ind Spironolactone (Aldactone Tab*) 100 mg PO DAILY [facility] Thiamine HCl (Vitamin B-1 Tab*) 100 mg PO DAILY [facility] Objective Vital Signs: Temp Pulse Resp BP Pulse Ox 98.5 F 62 20 98/51 98 06/24/18 08:12 06/24/18 08:31 06/24/18 08:31 06/24/18 08:31 06/24/18 08:31 Oxygen Devices in Use Now: None, CPAP Eyes: No Scleral Icterus, PERRLA Ears/Nose/Mouth/Throat: Mucous Membranes Moist Neck: NL Appearance and Movements; NL JVP, Trachea Midline Respiratory: Symmetrical Chest Expansion and Respiratory Effort, Clear to Auscultation Cardiovascular: NL Sounds; No Murmurs; No JVD, RRR Abdominal: - - distended, fluid filled, soft. Extremities: No Edema - resolved c/w yesterday. Skin: No Rash or Ulcers Neurological: Alert and Oriented x 3 Lines/Tubes/Other Access: Clean, Dry and Intact Peripheral IV Laboratory Results: 06/24/18 05:25 06/24/18 05:25 INR (Anticoag Therapy) 1.04 (0.77-1.02) H 06/24/18 05:25 APTT 31.8 seconds (26.0-36.3) 06/23/18 11:28 Total Bilirubin 0.50 mg/dL (0.2-1.0) 06/23/18 11:28 AST 38 U/L (13-39) 06/23/18 11:28 ALT 27 U/L (7-52) 06/23/18 11:28 Alkaline Phosphatase 127 U/L (34-104) H 06/23/18 11:28 Total Protein 5.5 g/dL (6.4-8.9) L 06/23/18 11:28 Albumin 2.6 g/dL (3.2-5.2) L 06/23/18 11:28 Globulin 2.9 g/dL (2-4) 06/23/18 11:28 Albumin/Globulin Ratio 0.9 (1-3) L 06/23/18 11:28 06/23/18 11:28 Troponin I 0.00 EKG Data: Monitor: SR, V paced. 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 Plavix held and should stay off 1-2 weeks. Improving GI bleeding. No angina or cardiac symptoms. No change in cardiac plan. Will follow distantly.
[2018-06-24 09:30] LABS: Urine Appearance Clear; Urine Blood Negative (Negative); Urine Color Yellow; Urine Ketones Negative (Negative); Urine Protein Negative (Negative); Urine Urobilinogen Negative (Negative)
[2018-06-24] MEDS: Lactulose* 15 ML UDC PO SCH ×4 (09:45→21:04)
[2018-06-24] MEDS: Atorvastatin* 80 MG TAB PO SCH (09:46)
[2018-06-24] MEDS: Folic Acid TAB* 1 MG PO SCH (09:46)
[2018-06-24] MEDS: Thiamine TAB* 100 MG TAB PO SCH (09:47)
[2018-06-24] MEDS: Aspirin EC TAB* 81 MG TAB.EC PO SCH (09:47)
[2018-06-24] MEDS: RiFAXimin* 550 MG TAB PO SCH ×2 (09:47→21:04)
[2018-06-24] MEDS: Furosemide TAB* 40 MG PO SCH (09:47)
[2018-06-24] MEDS: Spironolactone TAB* 25 MG PO SCH (09:47)
[2018-06-24] MEDS: Metoprolol Tartrate TAB* 25 MG PO SCH (09:50)
--- NOTE | 2018-06-24 10:23 | CONS ---
CC: Dr. Johnston; Dr. Herman Looney, Department of Hepatology at [facility] * CONSULTATION REPORT: DATE OF CONSULT: 06/23/18 REFERRING PHYSICIAN: Dr. Johnston. INDICATION: Hemorrhoids of rectum and anus. NARRATIVE: Mr. Ashford is a very pleasant 78-year-old gentleman well known to myself. He has a history of coronary artery disease with 4 coronary stents, requiring Plavix, also has a history of transfusion-dependent anemia. He had multiple colonic polyps that were oozing blood. He also has noncirrhotic portal hypertension with ascites and encephalopathy; he has TIPS. The patient underwent a colonoscopy approximately 6 days ago at [facility], at which time 11 large polyps were removed, 5 of them required the application of a clip to prevent any bleeding. The patient had been off his Plavix for 7 days at that point. He went home the next day on Monday and then on , Thanks[place] Day he restarted his Plavix. He had dark stools on ; however, on Monday he had at least 5 bright red blood containing bowel movements. He denies any dizziness or lightheadedness. His symptoms continued until this morning, at which time he presented to the emergency room; he was feeling weak. In the emergency room, his hemoglobin was found to be 7.5. When he left [facility] earlier in the week, his hemoglobin was 9.0. He denies any abdominal pain. No distention, no nausea, no vomiting. He feels well except for fatigue. PAST MEDICAL HISTORY: Please see the HPI. Additionally, he has sick sinus syndrome, sleep apnea, DVT, monoclonal gammopathy. PAST SURGICAL HISTORY: Includes heart catheterization, TIPS, pacemaker, IVC, cholecystectomy. MEDICATIONS: At home include: 1. Cipro. 2. Folic acid. 3. Thiamine. 4. Simethicone. 5. Xifaxan. 6. Spironolactone. 7. Protonix. 8. Lasix. 9. Colace. 10. Aspirin. 11. Crestor. 12. Lactulose. 13. Plavix. ALLERGIES: HORSE DANDER. FAMILY HISTORY: No GI malignancies in the family. SOCIAL HISTORY: No tobacco or alcohol. REVIEW OF SYSTEMS: Twelve systems were reviewed and other than that mentioned in the HPI were unremarkable. PHYSICAL EXAMINATION: Temperature is 98.6, blood pressure is 98/44, pulse is 61 , respiratory rate of 18, O2 sat is 99% on room air. General: Well-appearing male, in no apparent distress, appears slightly fatigued. Alert, oriented, pleasant, fluent. HEENT: Mucous membranes are moist without lesions, ulcers or exudate. Neck is supple. Trachea is midline. Head is normocephalic and atraumatic. Heart: Regular rate and rhythm. No murmurs, rubs or gallops. Lungs: Clear to auscultation bilaterally. No wheezes, rales or rhonchi. Abdomen: Obese, positive bowel sounds. Soft, dull flanks. No rebound. No guarding. Nontender. Skin is warm and dry. DIAGNOSTIC STUDIES/LAB DATA: Labs of note, his white count is 3, hemoglobin of 7.5, platelets of 191. INR is 0.98. BUN 34, creatinine 2.05. Alk phos is 127 , albumin is 2.6 ASSESSMENT AND PLAN: This is a very pleasant 78-year-old gentleman who underwent multiple polypectomies x11 a few days ago for symptomatic anemia. He had been on Plavix, it was restarted 2 days post polypectomy. Unfortunately, he developed bleeding likely from the polypectomy sites. At this point, he has not had a bowel movement in 4 hours. We would like to monitor him very closely. Cardiology has already seen him. They have agreed to holding his Plavix given his gastrointestinal bleed. We will need to make a determination within the next 24 hours whether or not we need to prep him in going for a colonoscopy. If he has further bright red blood per rectum, I think we will have to; this will need to be a good prep; however, hopefully he will stop on his own. We will continue to monitor his situation extremely closely. [id number]/[facility] #: [id number] GALO
[2018-06-24 18:17] LABS: Hematocrit 28 % (42-52); Hemoglobin 9.7 g/dl (14.0-18.0); Mean Corpuscular HGB Conc 34 g/dl (31-36); Mean Corpuscular Hemoglobin 31 pg (27-31); Mean Corpuscular Volume 90 fL (80-94); Mean Platelet Volume 6.7 fL (7.4-10.4); Platelet Count 193 10^3/ul (150-450); Red Blood Count 3.16 10^6/ul (4.00-5.40); Red Cell Distribution Width 20 % (10.5-15); White Blood Count 3.9 10^3/ul (3.5-10.8)
[2018-06-25 06:37] LABS: Hematocrit 27 % (42-52); Hemoglobin 9.3 g/dl (14.0-18.0); Mean Corpuscular HGB Conc 34 g/dl (31-36); Mean Corpuscular Hemoglobin 30 pg (27-31); Mean Corpuscular Volume 89 fL (80-94); Mean Platelet Volume 6.5 fL (7.4-10.4); Platelet Count 164 10^3/ul (150-450); Red Blood Count 3.07 10^6/ul (4.00-5.40); Red Cell Distribution Width 19 % (10.5-15)
[2018-06-25 07:00] LABS: EGFR Non-African American 34.6 (>60)
[2018-06-25] MEDS ORDERED: Docusate CAP* 100 MG PO SCH (09:00)
[2018-06-25] MEDS: Aspirin EC TAB* 81 MG TAB.EC PO SCH (09:16)
[2018-06-25] MEDS: Atorvastatin* 80 MG TAB PO SCH (09:16)
[2018-06-25] MEDS: Folic Acid TAB* 1 MG PO SCH (09:17)
[2018-06-25] MEDS: RiFAXimin* 550 MG TAB PO SCH (09:17)
[2018-06-25] MEDS: Lactulose* 15 ML UDC PO SCH ×2 (09:17→12:39)
[2018-06-25] MEDS: Spironolactone TAB* 25 MG PO SCH (09:17)
[2018-06-25] MEDS: Furosemide TAB* 40 MG PO SCH (09:17)
[2018-06-25] MEDS: Thiamine TAB* 100 MG TAB PO SCH (09:17)
--- NOTE | 2018-06-25 09:17 | PN ---
Progress Note - Progress Note Date of Service: 06/25/18 SOAP: Subjective: [] pt doing well, feels well, no dizzy, up walking, eating well; pt with bm today and no blood noted; no brb, melena Objective: []VS: 99.3, 96/40, 69, 98% NAD, alert +bs, soft, NT/ND Assessment: []Hgb 9.3, 9.7, 10.2 Plan: []78 yo male with rectal bleeding; s/p polypectomy x 11, 5 clips; restarted plavix on , and starting bleeding; no evidence of bleeding now; per Cards, off plavix x 7 days; ok to dc from GI standpoint; repeat cbc in 3-4 days, pt/ know what to watch for Isaac Ruiz MD
[2018-06-25 12:26] VITALS: BP 101/44
--- NOTE | 2018-06-26 07:02 | DS ---
CC: Dr. Johnston; Dr. Olmedo; Dr. Ruiz * DISCHARGE SUMMARY: DATE OF ADMISSION: 06/23/18 DATE OF DISCHARGE: 06/25/18 PRIMARY CARE PROVIDER: Dr. Johnston. NOXIOUS WEEDS AND PEST INSPECTOR: Dr. Ruiz. ROOF BOLTER: Dr. Olmedo. DISCHARGE DIAGNOSIS: Acute lower gastrointestinal bleed secondary to recent polypectomy x11. SECONDARY DIAGNOSES: 1. Noncirrhotic portal hypertension. 2. Hepatic encephalopathy - currently not encephalopathic. 3. Coronary artery disease. DISCHARGE MEDICATIONS: 1. Tylenol 650 mg p.o. q.6 hours p.r.n. pain. 2. Simethicone 80 mg p.o. t.i.d. p.r.n. indigestion. 3. Spironolactone 100 mg p.o. daily. 4. Protonix 40 mg p.o. daily. 5. Lasix 40 mg p.o. daily. 6. Colace 100 mg p.o. daily. 7. Aspirin 81 mg p.o. daily. 8. Crestor 40 mg p.o. daily. 9. Lactulose 15 mL p.o. b.i.d. (decreased frequency). 10. Thiamine 100 mg p.o. daily. 11. Folic acid 1 mg p.o. daily. Discontinued medications: 1. Xifaxan. HOSPITAL COURSE: Mr. Ashford is a 78-year-old male, who has had a complicated medical history as of late, who presents to the emergency room with complaints of bright red blood per rectum. The patient carries a history of noncirrhotic portal hypertension and underwent TIPS procedure in February of this year. At that time, the patient also suffered from acute [place], requiring 4 drug-eluting stents to be placed. The patient was started on aspirin and Plavix. The patient since has had intermittent issues with GI bleeding from 11 very large polyps within the colon. Ultimately, it was determined it was safe to take the patient off Plavix for a period of time to undergo polypectomy, which was done on 06/19/18. The patient had been off Plavix for the week prior and resumed Plavix on the morning of 06/21/18. By the evening of 06/21/18, the patient had to begin to have bright red blood per rectum, which continued into with the . The patient presented to the emergency room and was admitted for acute lower GI bleed. The patient was seen in consultation by Dr. Ruiz, who recommended holding Plavix, which was okayed by Dr. Olmedo. The patient's hemoglobin dropped from normal of 8.5 to 9.5 down to 7.5. The patient received 3 units of packed red blood cells and on the day of discharge, his hemoglobin is 9.3. The patient has had no further lower GI bleeding. The patient did not undergo repeat colonoscopy at this point. It is recommended that the patient stay off Plavix until at least 07/02/18. The patient states that he has a followup appointment with Dr. Olmedo and they will rely on her to inform him when he should resume the Plavix. On the day of discharge, the patient is awake, alert, and oriented, sitting up in the bed, in no acute distress. His cardiac exam reveals normal S1, S2 with a 2/6 systolic murmur heard best at the left upper sternal border. He does have right greater than left lower extremity edema. His lungs are clear, but diminished breath sounds are heard throughout. Abdomen is soft, nontender. He is mildly distended. At this point, the patient is stable for discharge home. FOLLOWUP CONCERNS: The patient is being discharged home today, 06/25/18. ACTIVITY LEVEL: As tolerated. DIET: Heart healthy. CONDITION ON DISCHARGE: Stable. DISCHARGE INSTRUCTIONS: The patient has been instructed to follow up with Dr. Johnston in the next 4 to 7 days, with Dr. Ruiz and Dr. Olmedo both in the next 1 week. The patient states that he already has these 2 appointments made. Additionally, the patient is to have a CBC obtained on 06/28/18. TIME SPENT: Thirty-five minutes was spent discharging this patient. [id number]/[facility] #: [id number] [facility]ITALMadeleine
== END 2018-06-25 13:36 | disposition home or self-care (01) | DRG 920 ==
LOC: ED 10:55 → ICU 13:16 → MEDTELE 06-24 09:33
PROVIDERS: ADMIT Nurse Practitioner Family; ATTEND Hospitalist
PROC: 30233N1 Transfusion of Nonautologous Red Blood Cells into Peripheral Vein, Percutaneous Approach (ICD-10-PCS; principal; 2018-06-23)
DX: K91.840 Postprocedural hemorrhage of a digestive system organ or structure following a digestive system procedure (principal); K92.1 Melena; D62 Acute posthemorrhagic anemia; K76.6 Portal hypertension; R18.8 Other ascites; I25.10 Atherosclerotic heart disease of native coronary artery without angina pectoris; K58.9 Irritable bowel syndrome, unspecified; K21.9 Gastro-esophageal reflux disease without esophagitis; K74.69 Other cirrhosis of liver; I12.9 Hypertensive chronic kidney disease with stage 1 through stage 4 chronic kidney disease, or unspecified chronic kidney disease; G47.33 Obstructive sleep apnea (adult) (pediatric); K72.90 Hepatic failure, unspecified without coma; E78.5 Hyperlipidemia, unspecified; Z96.1 Presence of intraocular lens; Y65.8 Other specified misadventures during surgical and medical care; Y73.3 Surgical instruments, materials and gastroenterology and urology devices (including sutures) associated with adverse incidents; D47.2 Monoclonal gammopathy; N18.9 Chronic kidney disease, unspecified; N40.0 Benign prostatic hyperplasia without lower urinary tract symptoms; Z91.040 Latex allergy status; Z88.8 Allergy status to other drugs, medicaments and biological substances; Z91.048 Other nonmedicinal substance allergy status; Z91.09 Other allergy status, other than to drugs and biological substances; Z95.810 Presence of automatic (implantable) cardiac defibrillator; Z90.49 Acquired absence of other specified parts of digestive tract; Z85.51 Personal history of malignant neoplasm of bladder; Z86.010 Personal history of colon polyps; Z98.42 Cataract extraction status, left eye; I25.2 Old myocardial infarction; Z98.41 Cataract extraction status, right eye; Z82.49 Family history of ischemic heart disease and other diseases of the circulatory system; Z72.89 Other problems related to lifestyle; Z87.891 Personal history of nicotine dependence; Z95.828 Presence of other vascular implants and grafts; Z86.718 Personal history of other venous thrombosis and embolism; Z95.5 Presence of coronary angioplasty implant and graft; Z80.9 Family history of malignant neoplasm, unspecified; Z79.82 Long term (current) use of aspirin; Z79.899 Other long term (current) drug therapy; Y92.009 Unspecified place in unspecified non-institutional (private) residence as the place of occurrence of the external cause
CPT/HCPCS: 36415; 80048; 80053; 81003; 82140; 82270; 83605; 83690; 84484; 85014; 85018; 85025; 85027; 85610; 85730; 86850; 86900; 86901; 86922; 87641; 93005; 99284; A9270-GY; J0696; J1940; J2354; P9040

== ENCOUNTER 2018-06-29 14:19 | Observation (INO) | payer MEDICARE ==
[2018-06-29] MEDS ORDERED: Ondansetron INJ* 2 MG/ML VIAL IV ONE (15:42)
--- NOTE | 2018-06-29 15:49 | ED ---
Complex/Multi-Sys Presentation - HPI Summary HPI Summary: Patient is a 78 y/o M w/ c/o epigastric pain, nausea, chest tightness, hands shaking bilaterally, SOB, and dark stools. Epigastric pain onset around 2100 last night. He describes pain as constant. This morning, patient reports that nausea onset at 0900 today. Patient's last bowel movement was this morning, stool is described as dark. Patient reports that chest pressure occurred between 1000 -1400 today. He denies chest pressure currently in the room. He denies taking any medications for chest pressure. Patient reports SOB with chest pressure but notes this has resolved as well. reports Dr. Olmedo's office was called and that patient was instructed to go to ED. Patient notes colonoscopy at [facility] on 06/19/18 and states that he had 11 polyps removed from his colon. 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 Patient was discharged 06/20. He was to restart taking Plavix 75 mg daily once, which he had been on previously for 2.5 months, on 06/21. On 06/22, patient experienced GI bleed. He states that he was here at [facility] at this time, patient was admitted 06/23 for GI bleed, discharged 06/25. During this time, patient had been given 3 units of blood. He stopped taking Plavix on 06/24, was told to restart Plaivx on 07/02. notes that patient is also on ASA 81 mg daily, spironolactone, pantoprazole. It is reported that patient took metoprolol yesterday and today, 12.5 mg twice daily. notes that patient has had bilateral hand shaking since yesterday and into today. PMHx of DC and cardiac stents is endorsed, he reports a total of four stents in two different arteries. FMHx of DC in mother, father with cancer is endorsed. On triage, pain is rated 4/10, nothing is noted to aggravate/ alleviate Sx. Home medications and allergies are reviewed. In room, vitals are pulse 58, o2 99, BP 129/69. - History Of Current Complaint Chief Complaint: EDGIBleed Time Seen by Provider: 06/29/18 15:39 Hx Obtained From: Patient, Family/Podiatric Assistant - , who is a pharmacist Onset/Duration: Lasting Hours - Epigastric pain onset around 2100 last night. Patient reports that nausea onset at 0900 today. Patient's last bowel movement was this morning, stool is described as dark. Patient reports that chest pressure occurred between 1000 -1400., Still Present - epigastric pain, nausea, hands shaking bilaterally and dark stools., Resolved - chest pressure, SOB Timing: Constant - epigastric pain, nausea, hands shaking bilaterally and dark stools., Intermittent, Lasting: - chest pressure for four hours Severity Currently: Moderate - 4/10 Location: Pain At: - chest, epigastric region Character: Pressure - chest "tightness" Aggravating Factor(s): nothing Alleviating Factor(s): nothing Associated Signs And Symptoms: Positive: SOB, Chest Pain, Nausea, Abdominal Pain - epigastric, Other - POSITIVE - DARK STOOLS, BILATERAL HAND SHAKING - Allergies/Home Medications Allergies/Adverse Reactions: Allergies Allergy/AdvReac Type Severity Reaction Status Date / Time Adhesive Tape Allergy Unknown Verified 06/29/18 14:28 Reaction Details horse dander Allergy Swelling Verified 06/29/18 14:28 Horse/Equine Containing Allergy Hives Verified 06/29/18 14:28 Products latex Allergy Unknown Verified 06/29/18 14:28 Reaction Details midodrine Allergy Unknown Verified 06/29/18 14:28 Reaction Details HORSE SERUM Allergy Severe Swelling, Uncoded 06/23/18 11:03 hives Home Medications: Home Medications Lactulose* 15 ml PO BID 06/29/18 [History Confirmed 06/29/18] Metoprolol Succinate XL TAB* [Toprol XL TAB*] 12.5 mg PO BID 06/29/18 [History Confirmed 06/29/18] Pantoprazole TAB (NF) [Protonix TAB (NF)] 40 mg PO BID 06/29/18 [History Confirmed 06/29/18] Spironolactone TAB* [Aldactone TAB 25 MG*] 50 mg PO DAILY 06/29/18 [History Confirmed 06/29/18] PMH/Surg Hx/FS Hx/Imm Hx Previously Healthy: No Endocrine/Hematology History: Reports: Hx Anticoagulant Therapy, Hx Anemia, Hx Unexplained Bleeding Cardiovascular History: Reports: Hx Angina, Hx Coronary Artery Disease, Hx Deep Vein Thrombosis - with filter in place , Hx Hypercholesterolemia, Hx Hypertension, Hx Myocardial Infarction, Hx Pacemaker/ICD - pacemaker Respiratory History: Reports: Hx Sleep Apnea - current CPAP user GI History: Reports: Hx Cirrhosis - noncirrhotic , Hx Gastroesophageal Reflux Disease, Hx Gastrointestinal Bleed - with encephalopathy, hx ascites, Hx Irritable Bowel, Other GI Disorders - brijesh'y, jessika'y History: Reports: Other Problems/Disorders - weak bladder s/p bladder cancer, colon polyps Musculoskeletal History: Reports: Other Musculoskeletal History - hammer toes, both feet, had sx. Denies: Hx Rheumatoid Arthritis Sensory History: Reports: Hx Contacts or Glasses Denies: Hx Deafness, Hx Hearing Aid, Other Sensory Impairments Opthamlomology History: Reports: Hx Contacts or Glasses Denies: Other Sensory Impairments Neurological History: Denies: Hx Headaches, Hx Seizures, Hx Transient Ischemic Attacks (TIA) Psychiatric History: Denies: Hx Autism, Hx Schizophrenia - Cancer History Cancer Type, Location and Year: bladder cancer Hx Chemotherapy: No - Surgical History Surgery Procedure, Year, and Place: cataract surgery with lens implants bilat eyes. hammer toe repair bilat feet. appendectomy. cholecystectomy. cardiac stents 2018. colonoscopy with polyp removal 2018 Hx Anesthesia Reactions: No - Immunization History Date of Tetanus Vaccine: unk Date of Influenza Vaccine: fall 2017 Infectious Disease History: No Infectious Disease History: Denies: Traveled Outside the [place] in Last 30 Days - Family History Known Family History: Positive: Cardiac Disease Negative: Hypertension, Diabetes - Social History Lives: With Family Alcohol Use: None Substance Use Type: Reports: None Hx Tobacco Use: No Smoking Status (MU): Former Smoker Type: Cigarettes Have You Smoked in the Last Year: No Review of Systems Constitutional: Negative Positive: Chest Pain Positive: Shortness Of Breath Positive: Abdominal Pain - EPIGASTRIC , Nausea Positive: other - POSITIVE - DARK STOOL Musculoskeletal: Negative Skin: Negative Neurological: Other - POSITIVE - BILATERAL HAND SHAKING Psychological: Normal All Other Systems Reviewed And Are Negative: Yes Physical Exam - Summary Physical Exam Summary: Appearance: ill-appearing, no pain distress, well-nourished, not encephalopathic Skin: Warm, color reflects adequate perfusion, dry Head: Normal Head/Face inspection, atraumatic Eyes: Conjunctiva clear ENT: Normal inspection Neck: Supple, no nodes, no JVD Respiratory: Lungs clear, normal breath sounds, no respiratory distress Cardio: RRR, No murmur, pulses normal, brisk capillary refill Abdomen: Soft, nontender Rectal Exam: done in presence of Nurse Marques, no masses, not painful. Formed stool in rectum, brown, soft stool that will be submitted for GUAIAC test. Bowel sounds: Present Musculoskeletal: Strength Intact/ROM intact, no calf tenderness, no edema. Psychological: Normal Neuro: Alert, muscle tone normal, no focal deficit, mild asterixis bilat hands noted Triage Information Reviewed: Yes Vital Signs On Initial Exam: Initial Vitals Temp Pulse Resp BP Pulse Ox 97.6 F 65 16 121/59 99 06/29/18 14:23 06/29/18 14:23 06/29/18 14:23 06/29/18 14:23 06/29/18 14:23 Vital Signs Reviewed: Yes Diagnostics - Vital Signs Vital Signs Temp Pulse Resp BP Pulse Ox 06/29/18 14:23 97.6 F 65 16 121/59 99 - Laboratory Result Diagrams: 06/30/18 06:27 06/30/18 06:27 Lab Statement: Any lab studies that have been ordered have been reviewed, and results considered in the medical decision making process. - Radiology CXR Radiology Interpretation Completed By: Radiologist Summary of Radiographic Findings: CXR IMPRESSION: FINDINGS MOST CONSISTENT WITH CONGESTIVE HEART FAILURE. THIS REPORT WAS REVIEWED BY ED PHYSICIAN. - EKG 1440 Cardiac Rate: Other Rate - 100% PACED RHYTHM WITH 68 BPM Ectopy: None EKG Comparison: No Significant Change - comparison with 06/23/18 EKG showed no significant changes Summary of EKG Findings: EKG showed 100% PACED RHYTHM WITH 68 BPM, comparison with 06/23/18 EKG showed no significant changes Re-Evaluation - Re-Evaluation First Eval Re-Evaluation Time: 17:32 Change: Unchanged Comment: Need for admission was discussed with and patient, they are agreeable with admission. Complex Multi-Symp Course/Dx Course Of Treatment: Patient is a 78 y/o M w/ c/o epigastric pain, nausea, chest tightness, hands shaking bilaterally, SOB, and dark stools. Epigastric pain onset around 2100 last night. He describes pain as constant. This morning, patient reports that nausea onset at 0900 today. Patient's last bowel movement was this morning, stool is described as dark. Patient reports that chest pressure occurred between 1000 -1400 today. He denies chest pressure currently in the room. He denies taking any medications for chest pressure. Patient reports SOB with chest pressure but notes this has resolved as well. reports Dr. Olmedo's office was called and that patient was instructed to go to ED. Patient notes colonoscopy at [facility] on 06/19/18 and states that he had 11 polys removed from his colon. Patient was discharged 06/20. He was to restart taking Plavix 75 mg daily once, which he had been on previously for 2.5 months, on 06/21. On 06/22, patient experienced GI bleed. He states that he was here at [facility] at this time, patient was admitted 06/23 for GI bleed, discharged . During this time, patient had been given 3 units of blood. He stopped taking Plavix on 06/24, was told to restart Plaivx on 07/02. notes that patient is also on ASA 81 mg daily, spironolactone, pantoprazole. It is reported that patient took metoprolol yesterday and today, 12.5 mg twice daily. Discussed with hospitalists whether CTA chest or VQ scan necessary for possible PE and it is decided that although pt has hx DVT, he does have a filter in place , and that pt bleeds with all anticoagulation, so even if PE were dx'd treatment would be difficult. Also there is risk of contrast nephropathy with pt 's baseline CKD and low perfusion state due to heart disease. It was decided pt' s pain is not typical for PE, and his pain is relieved in the ED and he is not hypoxic, so dx of PE not pursued further while pt is in the ED. notes that patient has had bilateral hand shaking since yesterday and into today. PMHx of DC and cardiac stents is endorsed, he reports a total of four stents in two different arteries. FMHx of DC in mother, father with cancer is endorsed. On physical exam, patient is ill-appearing, no pain distress, does have mild bilateral asterixis. Rectal Exam: done in presence of Nurse Mohan, no masses, not painful. Formed stool in rectum, brown, soft stool that will be submitted for GUAIAC test and is positive. During ED course, patient received fluids, Zofran 4 mg IV ED ONCE. Patient not given ASA per chest pain protocol, due to possible GI bleed. Labs showed TSH 0.17 (normal), albumin/globulin ratio 0.8, albumin 2.7, total protein 6, BNP 514, CK-MB 0.6, alk phos 134, lactic acid 1.6 , glucose 153, creatinine 1.98, BUN 37, D-dimer 823, absolute lymphs 0.6, MPV 6.9, RDW 20, Hct 30, Hgb 10.3, RBC 3.35, WBC 2.9. Free T4 was 1.23, total T3 was 57. First trop was 0, second was 0. Ammonia was 76. CXR IMPRESSION: FINDINGS MOST CONSISTENT WITH CONGESTIVE HEART FAILURE. EKG showed 100% PACED RHYTHM WITH 68 BPM, comparison with 06/23/18 EKG showed no significant changes. Stool occult blood test was positive. Patient's case was discussed with Dr. Aguilar at 1728, Dr. Aguilar accepts patient for admission. - Diagnoses Provider Diagnoses: Chest pain, Guaiac + stool, Serum ammonia increased, Epigastric abdominal pain , Congestive heart failure - Physician Notifications Discussed Care Of Patient With: Liz Aguilar Time Discussed With Above Provider: 17:28 Instructed by Provider To: Other - Patient's case was discussed with Dr. Aguilar at 1728, Dr. Aguilar accepts patient for admission. - Critical Care Time Critical Care Time: 30-74 min - 30 mins Discharge - Sign-Out/Discharge Documenting (check all that apply): Patient Departure - admit - Discharge Plan Condition: Guarded Disposition: ADMITTED TO [facility] - Billing Disposition and Condition Condition: GUARDED Disposition: Admitted to [facility] - Attestation Statements Document Initiated by Scribe: Yes Documenting Scribe: EKATERINA LOPEZ Provider For Whom Giae is Documenting (Include Credential): SUSAN CUNNINGHAM MD Scribe Attestation: EKATERINA Lal , scribed for SUSAN CUNNINGHAM MD on 07/02/18 at [id number]. Scribe Documentation Reviewed: Yes Provider Attestation: The documentation as recorded by the scribe, EKATERINA LOPEZ accurately reflects the service I personally performed and the decisions made by me, SUSAN CNUNINGHAM MD Status of [place] Document: Viewed
[2018-06-29 16:09] LABS: ABS Basophils 0 10^3/ul (0-0.2); ABS Eosinophils 0 10^3/ul (0-0.6); ABS Lymphocytes 0.6 10^3/ul (1.0-4.8); ABS Monocytes 0.3 10^3/ul (0-0.8); ABS Nucleated RBC 0 10^3/ul; Eosinophil % 1.4 %; Hematocrit 30 % (42-52); Hemoglobin 10.3 g/dl (14.0-18.0); Mean Corpuscular HGB Conc 34 g/dl (31-36); Mean Corpuscular Hemoglobin 31 pg (27-31); Mean Corpuscular Volume 91 fL (80-94); Mean Platelet Volume 6.9 fL (7.4-10.4); Nucleated Red Blood Cells % 0.1; Platelet Count 179 10^3/ul (150-450); Red Blood Count 3.35 10^6/ul (4.00-5.40); Red Cell Distribution Width 20 % (10.5-15); White Blood Count 2.9 10^3/ul (3.5-10.8)
[2018-06-29 16:14] LABS: INR 0.99 (0.77-1.02)
[2018-06-29] MEDS: NS 0.9% 1000 ML* 2,000 ML IV ONE (16:15)
[2018-06-29] MEDS ORDERED: Furosemide IV* 10 MG/ML 2 ML VIAL (20 MG) IV ONE (18:56)
[2018-06-29] MEDS ORDERED: Magnesium Sulfate 2 GM IV* 2 GM/50 ML BAG IVPB ONE (18:58)
[2018-06-29] MEDS ORDERED: Morphine VIAL* 4 MG/ML VIAL (1 ml vial) IV PRN (19:01)
[2018-06-29] MEDS ORDERED: Ondansetron INJ* 2 MG/ML VIAL IV PRN (19:01)
[2018-06-29] MEDS ORDERED: Acetaminophen TAB* 325 MG PO PRN (19:01)
[2018-06-29] MEDS: Metoprolol Succinate XL TAB* 25 MG PO SCH (21:24)
[2018-06-29] MEDS: Lactulose* 15 ML UDC PO SCH (21:25)
--- NOTE | 2018-06-30 05:52 | HP ---
CC: Dr. Johnston; Dr. Ruiz; Dr. Olmedo * HISTORY AND PHYSICAL: DATE OF ADMISSION: 06/29/18 PRIMARY CARE PROVIDER: Dr. Johnston. CHIEF COMPLAINT: Chest pain, shortness of breath and epigastric pain as well as nausea. HISTORY OF PRESENT ILLNESS: Bernardo Ashford is a 78-year-old unfortunate man with history of cryptogenic liver cirrhosis, status post TIPS procedure as well as 3 cardiac stents placed in February 2018, who later on was diagnosed with a GI bleed that was chronic, recurrent, and occurring due to large colon polyps that were removed during his stay at [facility] on 06/19/18. He was admitted on 06/23/18 for GI bleed to our facility, discharged 2 days later. At that point, the patient was transfused and his Plavix was discontinued. It was done in consideration of that the patient had severe carotid disease and had in- stent restenosis in February 2018. The patient stated that he was okay at home for a few days but last night he developed epigastric pain, nausea, shortness of breath, and chest pain. The shortness of breath and chest pain was worse when lying down. Currently, patient complains of nausea and epigastric discomfort. He is also short of breath when he lies down. He is going to be admitted with diagnoses of chest pain and epigastric pain. PAST MEDICAL HISTORY: 1. Cryptogenic liver cirrhosis. 2. History of hepatic encephalopathy. 3. History of recurrent GI bleeds as mentioned above. 4. History of coronary artery disease, status post coronary artery stent placement earlier on in 2017 and in-stent restenosis in February 2018. At that time, patient required 3 more stents placed due to history of sick sinus syndrome, status post pacemaker placement. 5. History of sleep apnea, on CPAP. 6. Anemia. 7. DVT. 8. Monoclonal gammopathy. 9. Status post TIPS procedure. 10. Polypectomy at [facility] on 06/19/18. 11. Status post IVC filter placement. 12. Laparoscopic cholecystectomy. MEDICATIONS AT HOME: Include: 1. Crestor 40 mg daily. 2. Lactulose 15 mL b.i.d. 3. Furosemide 40 mg daily. 4. Aspirin 81 mg daily. 5. Aldactone 50 mg daily. 6. Metoprolol succinate 12.5 mg b.i.d. 7. Protonix 40 mg b.i.d. 8. Thiamine 100 mg daily. 9. Folic acid 1 mg daily. ALLERGIES: Include ADHESIVE TAPE and HORSE DANDER. FAMILY HISTORY: The patient's mother when he was 27 during child . Father had a history of cancer. SOCIAL HISTORY: The patient denies any tobacco, alcohol, or drug use. 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 His surrogate decision maker is his . REVIEW OF SYSTEMS: Please see history of present illness. All the remaining 12 systems were reviewed with the patient and were otherwise negative. PHYSICAL EXAMINATION GENERAL: The patient is a pleasant 78-year-old male who is in no acute distress. Alert, awake, and oriented x3. VITAL SIGNS: Blood pressure of 142/99, heart rate of 77 and regular, respiratory rate 12, oxygen saturation 98% on room air, temperature of 97.6. HEENT: Head: Atraumatic, normocephalic. Eyes: Pupils are equal and reactive to light and accommodation. Oropharynx clear. Mucosa moist. NECK: Supple. No JVD. No bruit bilaterally. RESPIRATORY: Crackles at bilateral bases, otherwise clear. CARDIOVASCULAR: Regular rate and rhythm. No murmur. ABDOMEN: Mild ascites present, soft. Abdomen is overall tender, mildly in the epigastric region. Bowel sounds are present in all 4 quadrants. There is no rebound, no guarding. EXTREMITIES: There is trace bilateral pedal edema. Pulses +2 bilaterally and there is no clubbing or cyanosis. NEUROLOGIC: Speech clear. Cranial nerves II through XII grossly intact. Motor strength is 5/5 bilaterally. There is asterixis on evaluation. DIAGNOSTIC STUDIES/LABORATORY DATA: Showed sodium of 136, potassium 4.2, chloride 109, carbon dioxide 23, BUN 37, creatinine 1.98. Liver function tests shows AST of 41, ALT of 29, alkaline phosphatase of 134. His ammonia was 76, which is baseline. Magnesium of 1.6. TSH of 0.17. Patient's EKG showed ventricular paced heart rate. Chest x-ray, impression: "Findings most consistent with congestive heart failure." The patient's coagulation studies showed INR of 0.99, PTT of 27.5, D-dimer of 823. ASSESSMENT AND PLAN: 1. In regards to the patient's chest pain and shortness of breath. The patient appears to be in mild exacerbation of diastolic CHF. The patient's brain natriuretic peptide was 514. The patient is going to receive an additional dose of 20 mg of Lasix IV now in addition to his 40 mg of Lasix that he takes daily. Patient is going to be placed on daily weights and intake and output summaries. An echocardiogram is going to be ordered. To rule out acute coronary syndrome, troponins are going to be followed. Due to the patient's history of coronary artery disease, pretty severe with in-stent restenosis in February 2018, I will continue his aspirin despite his heme-positive stool at this point. 2. GI bleed. I suspect the patient may have ongoing chronic GI bleed. He stated that his stool was brown but was heme positive on evaluation in the lab. His hemoglobin is the best it has been and at this point, I will follow up his hemoglobin and hematocrit in the morning and his oral Protonix. Once again , I do not think it is an acute process. His aspirin will have to be continued due to his history of recent chest pain and history of severe coronary artery disease. 3. Patient's TSH is low. I will obtain free T4 and T3 for further evaluation at this point. 4. For hypomagnesemia, he is going to be placed on IV n.p.o. 5. For his history of deep venous thrombosis and DVT prophylaxis, the patient is going to be placed on sequential compression devices. Medications/ anticoagulants are contraindicated due to his ongoing bleed. 6. Patient's code status is full and his surrogate is his . 7. Patient's ammonia level was slightly elevated but is patient's baseline. We will continue lactulose at the given dose. 8. Patient's epigastric tenderness, nausea, and vomiting appears to be due to GI upset. I do not believe the patient has SBP as on the remaining part of his abdominal evaluation patient is not tender. Nevertheless, we should touch bases in the morning with gastroenterology consultants in regards of future prophylaxis for SBP in this patient. TIME SPENT: Approximately 72 minutes was spent on admission of this patient, more than half that time was spent [id number] with the patient during the interview and physical exam. [id number]/[facility] #: [id number] MTDD
[2018-06-30 07:00] LABS: ABS Basophils 0 10^3/ul (0-0.2); ABS Eosinophils 0.1 10^3/ul (0-0.6); ABS Lymphocytes 0.6 10^3/ul (1.0-4.8); ABS Monocytes 0.3 10^3/ul (0-0.8); ABS Neutrophils 1.4 10^3/ul (1.5-7.7); ABS Nucleated RBC 0 10^3/ul; Eosinophil % 4.6 %; Hematocrit 26 % (42-52); Lymphocyte % 26.3 %; Mean Corpuscular HGB Conc 35 g/dl (31-36); Mean Corpuscular Hemoglobin 31 pg (27-31); Mean Corpuscular Volume 90 fL (80-94); Mean Platelet Volume 6.9 fL (7.4-10.4); Nucleated Red Blood Cells % 0; Platelet Count 166 10^3/ul (150-450); Red Cell Distribution Width 20 % (10.5-15); White Blood Count 2.4 10^3/ul (3.5-10.8)
[2018-06-30 07:21] LABS: EGFR Non-African American 36.6 (>60)
[2018-06-30] MEDS ORDERED: Omeprazole CAP* 20 MG PO SCH (07:30)
[2018-06-30] MEDS ORDERED: Spironolactone TAB* 25 MG PO SCH (09:00)
[2018-06-30] MEDS ORDERED: Furosemide TAB* 40 MG PO SCH (09:00)
[2018-06-30] MEDS ORDERED: Aspirin EC TAB* 81 MG TAB.EC PO SCH (09:00)
[2018-06-30] MEDS ORDERED: Thiamine TAB* 100 MG TAB PO SCH (09:00)
[2018-06-30] MEDS ORDERED: Magnesium Oxide TAB* 400 MG PO SCH (09:00)
[2018-06-30] MEDS ORDERED: Folic Acid TAB* 1 MG PO SCH (09:00)
[2018-06-30] MEDS: Lactulose* 15 ML UDC PO SCH (10:27)
[2018-06-30] MEDS: Metoprolol Succinate XL TAB* 25 MG PO SCH (10:28)
[2018-06-30 13:16] VITALS: BP 97/45
--- NOTE | 2018-07-01 20:28 | DS ---
DISCHARGE SUMMARY: DATE OF ADMISSION: 06/29/18 DATE OF DISCHARGE: 06/30/18 ADMITTING PROVIDER: Maryjo Arriaga MD ATTENDING PHYSICIAN ON THE DAY OF DISCHARGE: Luis Manuel Edwards MD PRIMARY CARE PHYSICIAN: Dr. Johnston. OUTPATIENT LUMBER BUYER: Dr. Olmedo. OUTPATIENT CIRCULAR SAWYER HELPER: Dr. Ruiz. CHIEF COMPLAINT: Epigastric pain and nausea; shortness of breath. PRINCIPAL DIAGNOSES: Nausea and epigastric pain in the setting of recently starting folic acid few hours prior; congestive heart failure exacerbation, presumed diastolic, but right now pending. HISTORY OF PRESENT ILLNESS AND HOSPITAL COURSE: Bernardo Ashford is a 78-year-old high utilizer with history of cryptogenic cirrhosis, status post TIPS; hepatic encephalopathy; recurrent gastrointestinal bleeding; coronary artery disease, status post recent in-stent restenosis in February 2018; obstructive sleep apnea; DVT, status post IVC filter. He has had multiple admissions having spent more time in the hospital or not over the last 30 days. Please see [facility] for full details. He had 3 cardiac stents placed in February 2018 , then developed a GI bleed, which has been recurrent, chronic, and at least thought attributed to large colon polyps that were removed during recent stay at [facility] on 06/19/18. He was readmitted 06/23/18 for hematochezia in the setting of his continued need for dual-antiplatelet therapy with aspirin and Plavix. He got 3 units of bladder and was discharged 2 days later. At that point, his Plavix was recommended to be held by Dr. Olmedo for between 1 to 2 weeks. The patient reported that since then he had been doing well at home, although continued to report dark tarry stools, which he had done 3 admissions in the past as well. Per the note of the patient, night prior to admission began new medications of thiamine and folic acid for the first time and developed thereafter epigastric pain and nausea throughout the night. He reportedly called Dr. Olmedo's office and was recommended to present to the emergency room. He also stated that the epigastric discomfort that reached up into his lower chest and that he had some shortness of breath. His initial workup included hemoglobin level of 10.3, hematocrit 30, D- dimer of 823, ammonia level of 76, B-natriuretic peptide of 514. TSH was 0.17, T4 of 1.23, total T3 of 57. Troponin of 0.00, 0.00, and 0.02. Did have a chest x-ray that was read as findings most consistent with congestive heart failure and he was referred to hospitalist service for what was thought by Dr. Arriaga to be a mild exacerbation of potential diastolic CHF given the elevated BNP and imaging findings. He was given additional dose of 20 mg of IV Lasix and continued on his 40 mg of p.o. Lasix daily. Of note, he never had hypoxic respiratory failure. Plan was to pursue a repeat echocardiogram. Of note, his last at least in our system was 09/29/17, EF of 60% to 65%. However, this being Monday, echo services were not available and on further questioning on hospital day #2, the patient was convinced that his primary complaints of epigastric discomfort and nausea were temporarily correlated to his starting of the folic acid for the first time, which has these known side effects and that they had resolved after he has taken his medications while inpatient and of note , he was otherwise hemodynamically stable in his usual state of health, although tenuous given his repeat hospitalizations and multiorgan dysfunction including heart disease, need for medium-term dual-antiplatelet therapy, likely esophageal varices (were grade 1 back on 04/19/18) with continued melenic stool. His hemoglobin on hospital day #2 was 9.0, hematocrit 26. He had been getting IV iron infusions accordingly with Dr. Guillen. The patient was considered stable for discharge, but with obviously need for close followup with his primary care provider, GI, and Cardiac providers given his multiorgan dysfunction of cirrhosis, grade 1 esophageal varices, coronary artery disease with recent restenosis and need for dual-antiplatelet therapy, which is currently being held. These had worsening of his BNP as a murmur on exam is being recommended to get echocardiogram as an outpatient to reassess his cardiac and valvular function, especially in the setting interim stent placement and restenosis, requiring additional stent placement. There may be some utility if his melenic stools continue to repeating the EGD given the stent almost 2-1/2 months since he had last had that procedure done and has known esophageal varices that was grade 1 at that time. He did have no confusion and was continued on his outpatient lactulose. He was not being recommended to restart the folic acid. DISCHARGE MEDICATIONS: Include: 1. Aspirin 81 mg daily. 2. Furosemide 40 mg p.o. daily. 3. Lactulose 15 mL p.o. b.i.d. 4. Magnesium oxide 400 mg p.o. daily (new). 5. Metoprolol succinate 12.5 mg p.o. b.i.d. 6. Protonix 40 mg p.o. b.i.d. 7. Rosuvastatin 40 mg p.o. daily. 8. Spironolactone 50 mg p.o. daily. DISCHARGE DIET: Heart healthy, unchanged. FOLLOWUP: He was recommended to follow up with Dr. Olmedo's office at the very least via telephone in the next coming days. This patient attests he was already told to restart the Plavix on 07/02/18, but attests that he would plan to not do so until he talks to her. He should follow with Dr. Ruiz and/or his GI physician of [place] along with Dr. Johnston within 5 days of discharge. He should have repeat CBC done and I am recommending also an echocardiogram and if melenic stools continue, potentially an EGD or repeat capsule endoscopy. TIME SPENT ON DISCHARGE: 45 minutes. [id number] #: [id number] [facility]OSPITALMadeleine
== END 2018-06-30 14:00 | disposition home or self-care (01) ==
LOC: ED 14:19 → MEDTELE 19:01
PROVIDERS: ADMIT Internal Medicine; ATTEND Internal Medicine
DX: R10.13 Epigastric pain (principal); R11.0 Nausea; R06.02 Shortness of breath; Z79.82 Long term (current) use of aspirin; Z91.040 Latex allergy status; Z79.01 Long term (current) use of anticoagulants; I25.10 Atherosclerotic heart disease of native coronary artery without angina pectoris; Z85.51 Personal history of malignant neoplasm of bladder; Z87.891 Personal history of nicotine dependence
CPT/HCPCS: 36415; 71045; 80053; 82140; 82272; 82550; 82553; 83605; 83735; 83880; 84439; 84443; 84479; 84484; 85025; 85379; 85610; 85730; 86850; 86900; 86901; 93005; 96361; 96365; 96366; 96375; 99284; A9270-GY; G0378; J1940; J2405; J3475

== ENCOUNTER 2018-07-03 09:32 | Inpatient (IN) | payer MEDICARE ==
--- OUTSIDE RECORDS SUMMARY | 2018-07-03 09:36 | XMS REPORT | Continuity of Care Document ---
:1940 External Reference #:[id number] Author Name Martha Kim Care Team Providers Name Role Phone Franklyn Johnston MD Primary Care Physician Unavailable Payers Type Date Identification Numbers Payment Provider Subscriber Effective: Policy Number: [id number] Medicare Blue o Diya Jj Abdprisca 2016 Group Number: [id number] [address] [address] PayID: [id number] SWATI Marcus [address] Effective: 2013 Policy Number: [id number] Medicare Blue Ppo Diya Montgomerystefano Expires: 2014 Group Number: [id number] [address] [address] Group Name: Expires 14 SWATI Marcus [address] PayID: [id number] Effective: 2010 Policy Number: [id number] [facility] Diya Jj Dejon Expires: 2013 PayID: [id number] [address] [address] SWATI Marcus [address] Effective: 2006 Policy Number: [id number] Medicare Diya Montgomerystefano Expires: 2013 PayID: [id number] [address] [place] [address] Advance Directives Description No Information Available Problems Date Description Provider Status Onset: 07/09/2013 Sprain of foot Bryan Dee M.D. Active Onset: 06/30/2014 Obstructive sleep apnea syndrome Miriam Anguiano MD Active Onset: 03/01/2016 Gastroesophageal reflux disease Miriam Anguiano MD Active Onset: 03/01/2016 Morbid obesity Miriam Anguiano MD Active Onset: 10/03/2017 Cardiac pacemaker in situ Angelic Olmedo M.D. 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 Onset: 10/04/2017 Acute subendocardial infarction Patrick Joshua M.D., [facility], Active [facility] Onset: 10/04/2017 Encounter for planned Patrick Joshua M.D., [facility], Active postprocedural wound closure [facility] Onset: 10/04/2017 Chronic kidney disease stage 3 Patrick Joshua M.D., [facility], Active [facility] Onset: 04/19/2018 Melena KATIE Pike Active Onset: 04/19/2018 Chronic kidney disease KATIE Pike Active Onset: 04/19/2018 Monoclonal paraproteinemia KATIE Pike Active Onset: 04/19/2018 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 Onset: 04/20/2018 Gastrointestinal hemorrhage KATIE Pike Active Onset: 04/20/2018 Anemia KATIE Pike Active Onset: 04/20/2018 Other ascites KATIE Pike Active Onset: 04/20/2018 Hyperlipidemia KATIE Pike Active Onset: 05/03/2018 Cirrhosis - non-alcoholic Donte Janny Urbano MD Onset: 05/06/2018 Chronic hypotension Nichelle Lagunas DO Active Onset: 05/07/2018 Acute posthemorrhagic anemia Liz Aguilar DO Active Onset: 05/07/2018 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 Quit at age 62yrs Recreational Drug Use Denies Drug Use Smoking Status Reviewed: 04/06/18 Patient is a former smoked for 25yrs, smoker 3PPD. Quit at age 62yrs Exercise Type/Frequency Does not exercise Allergies, Adverse Reactions, Alerts Date Description Reaction Status Severity Comments 07/09/2013 Latex Contact dermatitis Active 07/09/2013 Adhesive Tape Active 02/28/2017 Horse Serum Active Medications Medication Date Status Form Strength Qnty SIG Indications Ordering Provider Rosuvastatin 01/10/ Active Tablets 40mg 90tab 1 by mouth Angelic Calcium 2018 s every day Clarita Olmedo Aspir-81 12/07/ Active 81mg 100un 1 tablet po I25.119 Angelic 2018 its daily VirgieClarita Metoprolol 09/29/ Active Tablets 25mg 90tab 1/2 by Angelic Tartrate 2018 s mouth twice Virgie, a day M.D. Nitroglycerin / Active Tablets [...] tablet by DO Rajesh 04/06/ mouth every FACC 2017 day Atorvastatin 09/29/ Hx Tablets 40mg 90tab 1 by mouth Angelic Calcium 2018 - s every day Virgie, 01/10/ M.D. 2018 Brilinta 09/29/ Hx Tablets 90mg 180ta 1 tab by Angelic 2018 - bs mouth twice Virgie, 11/06/ a day M.D. 2018 Hydrocodone 09/16/ Hx Tablets 5-300mg 14tab 1 tab by Jamilah Bitartrate/Aceta 2016 s mouth every B. minophen 4 hours as [place], needed pain NE[employer]HB[employer]HOOD AIDE Hydrocodone 09/16/ Hx Tablets 5-300mg 14tab 1 tab by Jamilah Bitartrate/Aceta 2017 s mouth every B. minophen 4 hours as [place], needed pain NEIGHBORHOOD AIDE Zantac 03/01/ Hx Tablets 300mg 90tab 1 tab by K21.9 Miriam 2015 - s mouth every MD Annmarie 03/29/ day every 2016 night Lipitor 07/09/ Hx Tablets 80mg 90tab 1 po qhs Bryan 2013 - s Luiz, 03/29/ M.DLow 2016 Losartan /00/ Hx Unknown Potassium 0000 - 2013 Celebrex /00/ Hx 200 daily Unknown 0000 - 2015 Aspirin Ec / Hx 81mg daily Unknown Lo-Dose 0000 - 2017 Losartan /00/ Hx Tablets 100mg 1 by mouth Unknown Potassium 0000 every day Lasix /00/ Hx Tablets 40mg 1 by mouth Unknown 0000 - twice per 2017 Aldactone /00/ Hx Tablets 50mg 1 by mouth Unknown 0000 - daily 2016 Midodrine HCL 00/ Hx Tablets 5mg 1 po tid Sylvia, 0000 - MD Franklyn 2016 Spironolactone 00/ Hx Tablets 50mg 1 tablet po Unknown 0000 - daily ( 2017 change since [address] Ward) Plavix /00/ Hx Tablets 75mg 90tab 1 by mouth I25.119 Angelic 0000 - s every day Shara, 12/07/ M.DLow 2017 Prednisone /00/ Hx Tablets Unknown 0000 - 2017 Medications Administered in Office Medication Date Status Form Strength Qnty SIG Indications Ordering Provider Inj, Administered Injection Yves Dsouza Regadenoson, 018 DO Rajesh 0.1 MG FACC Technetium TC Administered Injection Yves S. 99M 018 MenaDO Tetrofosmin, FACC Per Unit Dose Up To 40 Millicuries Influenza,Unsp Administered Injection Unknown ecified 017 Immunizations CPT Code Status Date Vaccine Lot # [id number] Given 05/14/2014 Influenza Virus 3Yrs & Over Vital Signs Date Vital Result Comment 04/06/2018 8:56am Height 71 inches 5'11" Weight 208.00 lb Heart Rate 68 /min BP Systolic Sitting 90 mmHg Lue large cuff BP Diastolic Sitting 42 mmHg Lue large cuff BP Systolic Standing 100 mmHg BP Diastolic Standing 70 mmHg Respiratory Rate 16 /min O2 % BldC Oximetry 98 % On Ra BMI (Body Mass Index) 29.0 kg/m2 03/23/2018 4:15pm Height 71 inches 5'11" Weight 216.00 lb Heart Rate 88 /min BP Systolic Sitting 104 mmHg Lue reg cuff BP Diastolic Sitting 60 mmHg Lue reg cuff BP Systolic Standing 110 mmHg Lue BP Diastolic Standing 64 mmHg Lue Respiratory Rate 16 /min BMI (Body Mass Index) 30.1 kg/m2 Ejection Fraction 60-65% 09/27/17 03/08/2018 1:33pm Height 71 inches 5'11" Weight 224.00 lb with shoes Heart Rate 100 /min BP Systolic Sitting 92 mmHg Lue reg cuff BP Diastolic Sitting 50 mmHg Lue reg cuff BP Systolic Standing 104 mmHg Lue reg cuff BP Diastolic Standing 60 mmHg Lue reg cuff Respiratory Rate 18 /min BMI (Body Mass Index) 31.2 kg/m2 Ejection Fraction 60-65% date 09/27/17 ECHO 02/27/2018 10:12am Height 71 inches 5'11" Weight 210.00 lb with shoes Heart Rate 76 /min BP Systolic Sitting 80 mmHg Lue reg cuff BP Diastolic Sitting 50 mmHg Lue reg cuff BP Systolic Standing 92 mmHg Lue reg cuff BP Diastolic Standing 60 mmHg Lue reg cuff Respiratory Rate 16 /min BMI (Body Mass Index) 29.3 kg/m2 Ejection Fraction 60-65% date 09/27/17 ECHO 02/05/2018 11:27am Height 71 inches 5'11" Weight 195.00 lb Heart Rate 60 /min BP Systolic Sitting 98 mmHg BP Diastolic Sitting 52 mmHg Respiratory Rate 18 /min Body Temperature 97.1 F BMI (Body Mass Index) 27.2 kg/m2 12/21/2017 3:10pm Height 71 inches 5'11" Weight 212.00 lb Heart Rate 76 /min BP Systolic 112 mmHg BP Diastolic 60 mmHg Respiratory Rate 12 /min Pain Level 6 BMI (Body Mass Index) 29.6 kg/m2 12/07/2017 1:41pm Height 71 inches 5'11" Weight 198.00 lb with shoes Heart Rate 88 /min BP Systolic Sitting 80 mmHg Lue reg cuff BP Diastolic Sitting 50 mmHg Lue reg cuff BP Systolic Standing 96 mmHg Lue reg cuff BP Diastolic Standing 50 mmHg Lue reg cuff Respiratory Rate 16 /min BMI (Body Mass Index) 27.6 kg/m2 Ejection Fraction 60-65% date 09/27/17 ECHO 10/04/2017 1:07pm Height 71 inches 5'11" Weight 221.00 lb [...] kg/m2 Ejection Fraction 60-65% Echo 09/22/17 10/03/2017 9:53am Height 71 inches 5'11" Weight 220.00 lb with shoes Heart Rate 76 /min BP Systolic Sitting 98 mmHg Rue reg cuff BP Diastolic Sitting 64 mmHg Rue reg cuff Respiratory Rate 17 /min BMI (Body Mass Index) 30.7 kg/m2 Ejection Fraction 60-65% date 09/27/17 ECHO 09/21/2017 2:03pm Height 71 inches 5'11" Weight 233.00 lb w/ shoes Heart Rate 62 /min BP Systolic Sitting 108 mmHg lue large cuff BP Diastolic Sitting 58 mmHg lue large cuff BP Systolic Standing 112 mmHg lue large cuff BP Diastolic Standing 58 mmHg lue large cuff Respiratory Rate 18 /min BMI (Body Mass Index) 32.5 kg/m2 Ejection Fraction 40-45% echo 02/23/17 08/14/2017 2:51pm Height 71 inches 5'11" Weight 228.00 lb Heart Rate 84 /min BP Systolic Sitting 112 mmHg BP Diastolic Sitting 64 mmHg Respiratory Rate 14 /min Body Temperature 97.0 F BMI (Body Mass Index) 31.8 kg/m2 07/10/2017 3:36pm Height 71 inches 5'11" Weight 224.25 lb Heart Rate 84 /min BP Systolic Sitting 120 mmHg BP Diastolic Sitting 64 mmHg Respiratory Rate 14 /min Body Temperature 97.4 F BMI (Body Mass Index) 31.3 kg/m2 03/30/2017 10:09am Weight 218.00 lb Heart Rate 75 /min BP Systolic Sitting 112 mmHg BP Diastolic Sitting 60 mmHg Respiratory Rate 20 /min Pain Level 0 O2 % BldC Oximetry 98 % 10/12/2016 1:45pm Heart Rate 100 /min BP Systolic 118 mmHg BP Diastolic 74 mmHg Respiratory Rate 18 /min Body Temperature 96.9 F 10/05/2016 1:12pm Heart Rate 78 /min BP Systolic 120 mmHg BP Diastolic 72 mmHg Respiratory Rate 16 /min Body Temperature 97.4 F 09/16/2016 1:24pm Height 71 inches 5'11" Weight 245.00 lb Heart Rate 80 /min BP Systolic 130 mmHg BP Diastolic 80 mmHg Respiratory Rate 18 /min Body Temperature 97.4 F BMI (Body Mass Index) 34.2 kg/m2 08/10/2016 1:34pm Height 71 inches 5'11" Weight 245.00 lb Heart Rate 82 /min BP Systolic Sitting 142 mmHg BP Diastolic Sitting 70 mmHg Respiratory Rate 16 /min Body Temperature 97.9 F BMI (Body Mass Index) 34.2 kg/m2 03/01/2016 9:50am Height 70 inches 5'10" Weight 235.00 lb Heart Rate 68 /min BP Systolic 138 mmHg BP Diastolic 82 mmHg Respiratory Rate 14 /min O2 % BldC Oximetry 96 % BMI (Body Mass Index) 33.7 kg/m2 07/07/2014 9:40am Height 70 inches 5'10" Weight 225.00 lb Heart Rate 70 /min BP Systolic 156 mmHg BP Diastolic 85 mmHg Body Temperature 97.3 F Pain Level 7 BMI (Body Mass Index) 32.3 kg/m2 06/30/2014 8:27am Height 72 inches 6'0" Weight 237.00 lb Heart Rate 88 /min BP Systolic Sitting 118 mmHg left arm, reg cuff BP Diastolic Sitting 76 mmHg left arm, reg cuff Respiratory Rate 16 /min O2 % BldC Oximetry 98 % Room air BMI (Body Mass Index) 32.1 kg/m2 Neck Circumference in inches 18.5 06/11/2014 9:43am Height 72 inches 6'0" Weight 270.00 lb Pain Level 5 BMI (Body Mass Index) 36.6 kg/m2 05/28/2014 8:37am Height 72 inches 6'0" Weight 270.00 lb Heart Rate 102 /min BP Systolic 143 mmHg BP Diastolic 86 mmHg Body Temperature 98.6 F BMI (Body Mass Index) 36.6 kg/m2 Results Test Date Facility Test Result H/L Range Note CBC No Diff 06/28/2018 [facility] White Blood 3.0 10^3/uL Low 3.5-10.[address] [place] [address] [phone] Red Blood Count 3.08 10^6/uL Low 4.00-5.40 Hemoglobin 9.7 g/dL Low 14.0-18.0 Hematocrit 28 % Low 42-52 Mean Corpuscular Volume 92 fL N 80-94 Mean Corpuscular Hemoglobin 31 pg N 27-31 Mean Corpuscular HGB Conc 34 g/dL N 31-36 Red Cell Distribution Width 21 % High 10.5-15 Platelet Count 175 10^3/uL N 150-450 Mean Platelet Volume 6.5 fL Low 7.4-10.4 CBC Auto Diff 06/03/2018 [facility] White Blood 3.7 10^3/uL N 3.5-10.[address] [place] [address] [phone] Red Blood Count 1.67 10^6/uL Low 4.00-5.40 Hemoglobin 5.4 g/dL Low 14.0-18.0 2 Hematocrit 16 % Low 42-52 Mean Corpuscular Volume 99 fL High 80-94 Mean Corpuscular Hemoglobin 33 pg High 27-31 Mean Corpuscular HGB Conc 33 g/dL N 31-36 Red Cell Distribution Width 24 % High 10.5-15 Platelet Count 252 10^3/uL N 150-450 Mean Platelet Volume 7.2 fL Low 7.4-10.4 Abs Neutrophils 2.4 10^3/uL N 1.5-7.7 Abs Lymphocytes 0.9 10^3/uL Low 1.0-4.8 Abs Monocytes 0.3 10^3/uL N 0-0.8 Abs Eosinophils 0.1 10^3/uL N 0-0.6 Abs Basophils 0 10^3/uL N 0-0.2 Abs Nucleated RBC 0 10^3/uL Granulocyte % 64.2 % N 38-83 Lymphocyte % 25.1 % N 25-47 Monocyte % 8.1 % High 0-7 Eosinophil % 1.7 % N 0-6 Basophil % 0.9 % N 0-2 Nucleated Red Blood Cells % 0.2 Inr/Protime 06/03/2018 [facility] Inr 0.91 N 0.77-1.[address] [place] [address] [phone] Laboratory test 06/03/2018 [facility] Partial 28.8 seconds N 26.0-36.[address] [place] [address] PTT [phone] Comp Metabolic 06/03/2018 [facility] Sodium 136 mmol/L N 135- 145 [place] [address] [phone] Potassium 4.4 mmol/L N 3.5-5.0 Chloride 111 mmol/L N 101-111 Co2 Carbon Dioxide 20 mmol/L Low 22-32 Anion Gap 5 mmol/L N 2-11 Glucose 153 mg/dL High 70-100 Blood Urea Nitrogen 45 mg/dL High 6-24 Creatinine 2.02 mg/dL High 0.67-1.17 BUN/Creatinine Ratio 22.3 High 8-20 Calcium 7.8 mg/dL Low 8.6-10.3 Total Protein 5.4 g/dL Low 6.4-8.9 Albumin 2.3 g/dL Low 3.2-5.2 Globulin 3.1 g/dL N 2-4 Albumin/Globulin Ratio 0.7 Low 1-3 Total Bilirubin 0.60 mg/dL N 0.2-1.0 Alkaline Phosphatase 146 U/L High 34-104 Alt 21 U/L N 7-52 Ast 33 U/L N 13-39 Egfr Non- 32.3 >60 Egfr 39.1 >60 3 Cell Morphology 06/03/2018 [facility] Polychromasia [address]+ [place] [address] [phone] Anisocytosis 3+ Elliptocyte 1+ Type & Screen 06/03/2018 [facility] Patient Blood [place] [address] [phone] Antibody Screen NEGATIVE Laboratory test 06/03/2018 [facility] Packed Cells SEE RESULTS [address] BELO <[place] [address] NOTE> [phone] Hemoglobin/Hemat 05/02/2018 [facility] Hemoglobin 7.3 g/dL Low 14.0-[address] [place], [place] [id number] [phone] Hematocrit 22 % Low 42-52 Laboratory test 04/20/2018 [facility] Surgical Interface SEE RESULT [address] [place] [address] [phone] Lipid Profile 03/12/2018 [facility] Triglycerides 77 mg/dL 6 (Trig/Chol/HDL) [address] [place] [address] [phone] Cholesterol 142 mg/dL 7 HDL Cholesterol 51.2 mg/dL 8 LDL Cholesterol 75 mg/dL 9 Laboratory test 01/05/2018 [facility] LDL Cholesterol 111 mg/dL [address] [place] [address] [phone] Laboratory test 12/29/2017 [facility] Creatine 16 U/L N 10- [address] Kinase(CK) [place] [address] [phone] Erythrocyte Sed Rate 97 mm/Hr High 0-40 Comp Metabolic Panel 12/29/2017 [facility] Sodium 133 mmol/L Low 139-[address] [place] [address] [phone] Potassium 4.1 mmol/L N 3.5-5.0 Chloride 103 mmol/L N 101-111 Co2 Carbon Dioxide 23 mmol/L N 22-32 Anion Gap 7 mmol/L N 2-11 Glucose 149 mg/dL High 70-100 Blood Urea Nitrogen 43 mg/dL High 6-24 Creatinine 2.06 mg/dL High 0.67-1.17 BUN/Creatinine Ratio 20.9 High 8-20 Calcium 7.9 mg/dL Low 8.6-10.3 Total Protein 6.0 g/dL Low 6.4-8.9 Albumin 2.6 g/dL Low 3.2-5.2 Globulin 3.4 g/dL N 2-4 Albumin/Globulin Ratio 0.8 Low 1-3 Total Bilirubin 0.30 mg/dL N 0.2-1.0 Alkaline Phosphatase 112 U/L High 34-104 Alt 16 U/L N 7-52 Ast 23 U/L N 13-39 Egfr Non- 31.6 >60 Egfr 40.7 >60 11 Stool Occult 10/13/2017 [facility] Stool Occult SEE RESULT 12 Blood Diag [address] Blood, [place] [address] [phone] CBC Auto Diff 10/04/2017 [facility] White Blood 4.1 10^3/uL N 3.5-10. [address] Count 8 [place] [address] [phone] Red Blood Count 3.60 10^6/uL Low 4.0-5.4 Hemoglobin 10.1 g/dL Low 14.0-18.0 Hematocrit 31 % Low 42-52 Mean Corpuscular Volume 86 fL N 80-94 Mean Corpuscular Hemoglobin 28 pg N 27-31 Mean Corpuscular HGB Conc 33 g/dL N 31-36 Red Cell Distribution Width 18 % High 10.5-15 Platelet Count 214 10^3/uL N 150-450 Mean Platelet Volume 9 um3 N 7.4-10.4 Abs Neutrophils 3.1 10^3/uL N 1.5-7.7 Abs Lymphocytes 0.5 10^3/uL Low 1.0-4.8 Abs Monocytes 0.4 10^3/uL N 0-0.8 Abs Eosinophils 0.1 10^3/uL N 0-0.6 Abs Basophils 0 10^3/uL N 0-0.2 Abs Nucleated RBC 0 10^3/uL Granulocyte % 75.5 % N 38-83 Lymphocyte % 13.1 % Low 25-47 Monocyte % 9.0 % High 0-7 Eosinophil % 1.4 % N 0-6 Basophil % 1.0 % N 0-2 Nucleated Red Blood Cells % 0 Basic Metabolic 10/04/2017 [facility] Sodium 132 mmol/L Low 133-[address] [place] [address] [phone] Potassium 4.6 mmol/L N 3.5-5.0 Chloride 104 mmol/L N 101-111 Co2 Carbon Dioxide 23 mmol/L N 22-32 Anion Gap 5 mmol/L N 2-11 Glucose 124 mg/dL High 70-100 Blood Urea Nitrogen 40 mg/dL High 6-24 Creatinine 2.01 mg/dL High 0.67-1.17 BUN/Creatinine Ratio 19.9 N 8-20 Calcium 7.8 mg/dL Low 8.6-10.3 Egfr Non- 32.5 >60 Egfr 41.9 >60 13 Basic Metabolic 10/02/2017 [facility] Sodium 131 mmol/L Low 133-[address] [place] [address] [phone] Potassium 4.6 mmol/L N 3.5-5.0 Chloride 103 mmol/L N 101-111 Co2 Carbon Dioxide 23 mmol/L N 22-32 Anion Gap 5 mmol/L N 2-11 Glucose 128 mg/dL High 70-100 Blood Urea Nitrogen 39 mg/dL High 6-24 Creatinine 2.00 mg/dL High 0.67-1.17 BUN/Creatinine Ratio 19.5 N 8-20 Calcium 8.1 mg/dL Low 8.6-10.3 Egfr Non- 32.7 >60 Egfr 42.1 >60 14 Laboratory test 09/26/2017 [facility] B-Type Natriuretic 54 pg/ mL [address] [place] [address] [phone] Troponin-I (TnI) 0.08 ng/mL High <0.04 16 Basic Metabolic 09/26/2017 [facility] Sodium 132 mmol/L Low 133-[address] [place] [address] [phone] Potassium 5.5 mmol/L High 3.5-5.0 Chloride 103 mmol/L N 101-111 Co2 Carbon Dioxide 25 mmol/L N 22-32 Anion Gap 4 mmol/L N 2-11 Glucose 183 mg/dL High 70-100 Blood Urea Nitrogen 36 mg/dL High 6-24 Creatinine 1.86 mg/dL High 0.67-1.17 BUN/Creatinine Ratio 19.4 N 8-20 Calcium 8.3 mg/dL Low 8.6-10.3 Egfr Non- 35.6 >60 Egfr 45.8 >60 17 HIV 1/2 Ag & 07/12/2017 [facility] HIV-1/-2 Screen, Negative Negative 18 AB Eval [address] [place] [address] [phone] Laboratory 07/12/2017 [facility] Miscellaneous See Comment 19 test finding [address] [place] [address] [phone] Hepatitis E IgM Antibody Negative Negative 20 Laboratory test 07/12/2017 [facility] Hepatitis E Negative Negative [address] [place] [address] [phone] Laboratory test 07/12/2017 [facility] Hepatitis E Negative Negative [address] [place] [address] [phone] Laboratory test 07/12/2017 [facility] Hepatitis E Negative Negative [address] [place] [address] [phone] Laboratory test 07/12/2017 [facility] Hepatitis E Negative Negative [address] [place] [address] [phone] Laboratory test 07/12/2017 [facility] Hepatitis E Negative Negative [address] [place] [address] [phone] Laboratory test 07/12/2017 [facility] Hepatitis E Negative Negative [address] [place] [address] [phone] Laboratory test 07/12/2017 [facility] Hepatitis E Negative Negative [address] [place] [address] [phone] Laboratory test 07/12/2017 [facility] Hepatitis E Negative Negative [address] [place] [address] [phone] Laboratory test 07/12/2017 [facility] Hepatitis E Negative Negative [address] [place] [address] [phone] Laboratory test 07/12/2017 [facility] Hepatitis E Negative Negative [address] [place] [address] [phone] Laboratory test 07/12/2017 [facility] Hepatitis E Negative Negative [address] [place] [address] [phone] Laboratory test 07/12/2017 [facility] Hepatitis E Negative Negative [address] [place] [address] [phone] Laboratory test 07/12/2017 [facility] Hepatitis E Negative Negative [address] [place] [address] [phone] Laboratory test 07/12/2017 [facility] Hepatitis E Negative Negative [address] [place] [address] [phone] Laboratory test 07/12/2017 [facility] Hepatitis E Negative Negative [address] [place] [place] [address] [phone] Laboratory test 07/12/2017 [facility] Hepatitis E Negative Negative [address] [place] [address] [phone] Hepatitis E IgG Antibody Negative Negative 37 Laboratory test 12/02/2016 [facility] Cytology Non-Furniture Cleaner SEE RESULT [address] [place] [address] [phone] Laboratory test 12/02/2016 [facility] Surgical Pathology SEE RESULT [address] BELOW [place], [place] [address] [phone] Leukemia/Lymphom 12/02/2016 [facility] Path Interpretation TNP N a Flow [address] 2-8 [place] [address] [phone] Path Interpret > 16 Marker TNP N Path Interpret 9-15 Marker (SEE NOTE) N 40 B-Cell Lymphoma 12/02/2016 [facility] FBLP Specimen Bone Marrow N Fish [address] [place] [address] [phone] FBLP Source Right PIC N FBLP Reason for Referral See Comment N 41 FBLP Method See Comment N 42 FBLP Result Summary Normal N FBLP Result See Comment N 43 FBLP Result Table See Comment N 44 FBLP Interpretation See Comment N 45 FBLP Additional Information See Comment N 46 FBLP Released By See Comment N 47 FBLP Disclaimer See Comment N 48 Plasma Cell 12/02/2016 [facility] Plasma Cell Abnormal N Profliferative [address] [place] [place] [address] Summary [phone] Plasma Cell Prolif Specimen Bone Marrow N Plasma Cell Prolif Dis Source Right PIC N Plasma Cell Referral Reason See Comment N 49 Plasma Cell Prolif Dis Method See Comment N 50 Plasma Cell Dis Result Table See Comment N 51 Plasma Cell Prolif Dis Results See Comment N 52 Plasma Cell Dis Interpretation See Comment N 53 Plasma Cell Dis Add Info See Comment N 54 Plasma Cell Dis Disclaimer See Comment N 55 Plasma Cell Dis Released By See Comment N 56 Laboratory test 11/04/2016 [facility] Surgical SEE RESULT [address] Interface Order BELOW [place], [place] [id number] [phone] Laboratory test 11/04/2016 [facility] Ach Receptor 0.00 nmol/L N <=0.02 [address] Binding AB [place], [place] [address] [phone] Comp Metabolic 11/04/2016 [facility] Sodium 134 mmol/L N 133- [address] 5 [place] [address] [phone] Potassium 4.4 mmol/L N 3.5-5.0 Chloride 102 mmol/L N 101-111 Co2 Carbon Dioxide 24 mmol/L N 22-32 Anion Gap 8 mmol/L N 2-11 Glucose 135 mg/dL High 70-100 Blood Urea Nitrogen 20 mg/dL N 6-24 Creatinine 1.40 mg/dL High 0.67-1.17 BUN/Creatinine Ratio 14.3 N 8-20 Calcium 8.8 mg/dL N 8.6-10.3 Total Protein 7.1 g/dL N 6.4-8.9 Albumin 3.1 g/dL Low 3.2-5.2 Globulin 4.0 g/dL N 2-4 Albumin/Globulin Ratio 0.8 Low 1-3 Total Bilirubin 0.70 mg/dL N 0.2-1.0 Alkaline Phosphatase 152 U/L High 34-104 Alt 28 U/L N 7-52 Ast 34 U/L N 13-39 Egfr Non- 49.5 N >60 Egfr 63.7 N >60 59 CBC Auto Diff 11/04/2016 [facility] White Blood 5.0 10^3/uL N 3.5-10.[address] [place] [address] [phone] Red Blood Count 4.88 10^6/uL N 4.0-5.4 Hemoglobin 13.5 g/dL Low 14.0-18.0 Hematocrit 42 % N 42-52 Mean Corpuscular Volume 85 fL N 80-94 Mean Corpuscular Hemoglobin 28 pg N 27-31 Mean Corpuscular HGB Conc 33 g/dL N 31-36 Red Cell Distribution Width 18 % High 10.5-15 Platelet Count 140 10^3/uL Low 150-450 Mean Platelet Volume 9 um3 N 7.4-10.4 Abs Neutrophils 3.5 10^3/uL N 1.5-7.7 Abs Lymphocytes 1.0 10^3/uL N 1.0-4.8 Abs Monocytes 0.4 10^3/uL N 0-0.8 Abs Eosinophils 0 10^3/uL N 0-0.6 Abs Basophils 0 10^3/uL N 0-0.2 Abs Nucleated RBC 0 10^3/uL N Granulocyte % 71.1 % N 38-83 Lymphocyte % 19.4 % Low 25-47 Monocyte % 8.6 % N 1-9 Eosinophil % 0.4 % N 0-6 Basophil % 0.5 % N 0-2 Nucleated Red Blood Cells % 0 N Laboratory test 09/27/2016 [facility] Cytology Non-Furniture Cleaner SEE RESULT [address] [place] [address] [phone] Laboratory test 09/27/2016 [facility] Surgical SEE RESULT [address] [place] [address] [phone] Body Fluid C&S 05/28/2014 [facility] Body Fluid Cult (SEE NOTE) [address] [place] [address] [phone] Laboratory test 05/28/2014 [facility] Fluid Crystals None Seen N [address] [place] [address] [phone] 1 GENERAL ILLNESS 2 Critical Result HGB:5.4 Called to and read back by: [id number] at: 06/03/2018 20:30:56 by:[id number] 3 Because ethnic data is not always [...] 5 Kidney failure <15 (or dialysis) 4 SEE RESULTS BELOW [id number] ON PC TRANSFUSED 06/05/18 1714 [id number] AN PC TRANSFUSED 06/04/18 0537 [id number] OP PC TRANSFUSED 06/04/18 0931 [id number] AP PC TRANSFUSED 06/04/18 0035 [id number] AP PC TRANSFUSED 06/03/18 2113 5 SEE RESULT BELOW Name: DIYA ASHFORD : [address]: Maryjo Arriaga MD Acct: [id number] Unit: [id number] AGE: 78 Location: ICU [id number] Re04/20/18 Dis: 04/22/18 SEX: M Status: DIS IN SPEC: [id number] BRAD: 04/20/18-[address] [facility] [address]: Cristina Harmon MD REQ: [id number] RECD: 04/20/18 STATUS: TUNDE SALINAS DR: Luis [...] by and Reported on: Favian Templeton MD 0387 END OF REPORT DEPARTMENT OF PATHOLOGY, [address] [place] [address] Favian Templeton M.D. Director [facility] # [id number] Desirable: <150 Borderline High: 150-199 High: 200-499 Very High: >500 7 Desirable: <200 Borderline High: 200-239 High: >239 8 Low: <40 Desirable: 40-60 High: >60 9 Desirable: <100 Near Optimal: 100-129 Borderline High: 130-159 High: 160-189 Very High: >189 10 Desirable: <100 Near Optimal: 100-129 Borderline High: 130-159 High: 160-189 Very High: >189 11 Because ethnic data is not always [...] 5 Kidney failure <15 (or dialysis) 12 SEE RESULT BELOW Name: DIYA ASHFORD : [address]: Angelic Olmedo MD Acct: [id number] Unit: [id number] AGE: 77 Location: [facility] Re10/13/17 SEX: M Status: REG REF SPEC: [id number] BRAD: 10/13/17-[address] [facility] [address]: Angelic Olmedo MD REQ: [id number] RECD: 10/13/17-1313 STATUS: JOVANI SALINAS DR: Franklyn Johnston MD _ SOURCE: STOOL SPDESC: ORDERED: Occult Bl, Diag Procedure Result Reported Site Stool Occult Blood (1) Final 10/13/17- 1415 ML Stool Occult Blood Positive Collection Date (1) 10/13/17 * ML - Main Lab . END OF REPORT DEPARTMENT OF PATHOLOGY, [address] [place] [address] Favian Templeton M.D. Director [facility] # [id number] 13 Because ethnic data is not always readily [...] 15-29 5 Kidney failure <15 (or dialysis) 14 Because ethnic data is not always readily [...] 15-29 5 Kidney failure <15 (or dialysis) 15 >100 to <200 pg/mL: likely compensated congestive heart failure (CHF) 200 to 400 pg/mL: likely moderate CHF >400 pg/mL: likely moderate to severe CHF [address] Moreno by [id number] at 1734 on 09/26/17. Results read back accurately. 17 Because ethnic data is not always readily [...] 15-29 5 Kidney failure <15 (or dialysis) 18 Negative result does not rule out HIV infection. If acute HIV infection is suspected in a high-risk individual, submit plasma specimen for HIV-1 RNA quantification test (HIVDQ) and/or HIV-2 DNA/RNA test (FHV2Q). Test Performed by: [facility] [address] [place] [address] 19 Test Result Flag Unit RefValue Strongyloides Ab, IgG, S Negative Negative No detectable levels of IgG antibodies to Strongyloides. Repeat testing in 1-2 weeks if clinically indicated. Test Performed by: [place] [address] 20 If clinical suspicion persists, submit new specimen for retesting in 1 to 2 weeks. Test Performed by: [place] [address] 21 If clinical suspicion persists, submit new specimen for retesting in 1 to 2 weeks. Test Performed by: [place] [address] 22 If clinical suspicion persists, submit new specimen for retesting in 1 to 2 weeks. Test Performed by: [place] [address] 23 If clinical suspicion persists, submit new specimen for retesting in 1 to 2 weeks. Test Performed by: [place] [address] 24 If clinical suspicion persists, submit new specimen for retesting in 1 to 2 weeks. Test Performed by: [place] [address] 25 If clinical suspicion persists, submit new specimen for retesting in 1 to 2 weeks. Test Performed by: [place] [address] 26 If clinical suspicion persists, submit new specimen for retesting in 1 to 2 weeks. Test Performed by: [address] [address] 27 If clinical suspicion persists, submit new specimen for retesting in 1 to 2 weeks. Test Performed by: [address] [address] 28 If clinical suspicion persists, submit new specimen for retesting in 1 to 2 weeks. Test Performed by: [place] [address] 29 If clinical suspicion persists, submit new specimen for retesting in 1 to 2 weeks. Test Performed by: [address] [address] 30 If clinical suspicion persists, submit new specimen for retesting in 1 to 2 weeks. Test Performed by: [place] [address] 31 If clinical suspicion persists, submit new specimen for retesting in 1 to 2 weeks. Test Performed by: [place] [address] 32 If clinical suspicion persists, submit new specimen for retesting in 1 to 2 weeks. Test Performed by: [facility] [place] [address] 33 If clinical suspicion persists, submit new specimen for retesting in 1 to 2 weeks. Test Performed by: [facility] [place] [address] 34 If clinical suspicion persists, submit new specimen for retesting in 1 to 2 weeks. Test Performed by: [place] [address] 35 If clinical suspicion persists, submit new specimen for retesting in 1 to 2 weeks. Test Performed by: [place] [address] 36 If clinical suspicion persists, submit new specimen for retesting in 1 to 2 weeks. Test Performed by: [facility] [place] [address] 37 Test Performed by: [place] [address] 38 SEE RESULT BELOW Name: DIYA ASHFORD : [address]: Timmy Montoya MD Acct: [id number] Unit: [id number] AGE: 76 Location: Re12/02/16 SEX: M Status: REG REF SPEC: [id number] BRAD: 12/02/16-[address] [facility] [address]: Timmy Montoya MD REQ: [id number] RECD: 12/02/16 STATUS: TUNDE SALINAS DR: Isaac [...] Signed (signature on file) Favian Templeton MD 6251 END OF REPORT * ML=Testing performed at Main Lab DEPARTMENT OF PATHOLOGY, [address] [place] [address] Favian Templeton M.D. Director [facility] # [id number] 39 SEE RESULT BELOW Name: DIYA ASHFORD : [address]: Timmy Montoya MD Acct: [id number] Unit: [id number] AGE: 76 Location: Re12/02/16 SEX: M Status: REG REF SPEC: [id number] BRAD: 12/02/16-[address]: Timmy Montoya MD REQ: [id number] RECD: 12/02/16 STATUS: TUNDE SALINAS DR: Ari Salazar MD _ ORDERED: Decal, LEVEL 4/2, IMMUNO-FIRST, IMMUNO-ADDL/2, SPEC ST NON-ORG/2 Plasma cell disease has been performed at [facility], [place], [place]. The testing reveals: Specimen: Bone marrow. [...] pathologic correlation is recommended. Test Performed by: [facility] [place] [address] CONTINUED ON NEXT PAGE * ML=Testing performed at Main Lab DEPARTMENT OF PATHOLOGY, [address] [place] [address] Favian Templeton M.D. Director [facility] # [id number] RUN DATE: 12/14/16 [facility] LAB LIVE PAGE 2 Patient: YUSRASTEFANODIYA Анна [id number] (Continued) ADDENDUM (Continued) Addendum Signed (signature on file) Sunita Landa MD 1043 B-cell lymphoma has been performed at [facility], [place], [place]. The testing reveals: Specimen: Bone marrow. Method: Locus and probes [Strategy;#Nuclei;Class] 3q27(3'BCL6,5'BCL6) [BAP;200;ASR] 8q24(5'MYC,3'MYC) [BAP;200;ASR] 11q13(CCND1-XT),14q32(IGH-XT) [DFISH;500;ASR] 17p13(TP53),17CEN(D17Z1) [COPY#;200;ASR] 18q21(5'MALT1,3'MALT1) [BAP;200;ASR] 18q21(5'BCL2,3'BCL2) [BAP;200;ASR] Probe strategies include: DFISH=dual color, double fusion; BAP=break-apart probe; COPY#=region gain and loss. Result: Interphase FISH is normal for all loci studied. Result Summary: Normal Result Table: Abnormality Name Result %Abn Cutoff (%) 8q24.1(MYC sep) Normal <6.5% -17p13.1(TP53x1,Q12F7z5) Normal <9.5% -17(TP53,D17Z1)x1 Normal <5.5% 18q21(MALT1 sep) [...] performed at Main Lab DEPARTMENT OF PATHOLOGY, [address] [place] [address] Favian Templeton M.D. Director [facility] # [id number] RUN DATE: 12/14/16 [facility] LAB LIVE PAGE 3 Patient: DIYA ASHFORD [id number] (Continued) ADDENDUM (Continued) Additional cytogenetic studies are reported separately. Test Performed by: [facility] [address] [place] [address] Addendum Signed (signature on file) Favian Templeton [...] ON NEXT PAGE * ML=Testing performed at [facility] DEPARTMENT OF PATHOLOGY, [address] [place] [address] Favian Templeton M.D. Director JANETH # [id number] RUN DATE: 12/14/16 [facility] LAB LIVE PAGE 4 Patient: DIYA ASHFORD [id number] (Continued) SPECIAL STUDIES (Continued) SPECIAL STUDIES Flow cytometry has been performed at [place], [place]. The testing reveals: FINAL DIAGNOSIS: Specimen Source: Right posterior iliac crest bone marrow Flow cytometry immunophenotypic analysis: Interpretative data: Lambda light chain restricted, CD19 positive, CD10 negative B-cell population detected (4% of WBCs, 19% of gated lymphocytes). [place] light chain restricted plasma cells, (less [...] MD 12/05/16 1452 Technical component performed by: [place] [address] Guidance Adviser: Jamie Porter II, MD, PhD. CONTINUED ON NEXT PAGE * ML=Testing performed at Main Lab DEPARTMENT OF PATHOLOGY, [address] [place] [address] Favian Templeton M.D. Director [facility]AN[facility] # [id number] RUN DATE: 12/14/16 [facility] LAB LIVE PAGE 5 Patient: DIYA ASHFORD [id number] (Continued) PRE-OPERATIVE DIAGNOSIS (Continued) PRE-OPERATIVE DIAGNOSIS D47.2 [...] performed at Main Lab DEPARTMENT OF PATHOLOGY, [address] [place] [address] Favian Templeton M.D. Director [facility] # [id number] RUN DATE: 12/14/16 [facility] LAB LIVE PAGE 6 Patient: DEJONDIYA Анна [id number] (Continued) MICROSCOPIC DESCRIPTION (Continued) Signed (signature on file) Favian Templeton MD 1547 END OF REPORT * ML=Testing performed at Main Lab DEPARTMENT OF PATHOLOGY, [address] [place] [address] Favian Templeton M.D. Director [facility] # [id number] 40 FINAL DIAGNOSIS: Specimen Source: Right posterior iliac crest bone marrow Flow cytometry immunophenotypic analysis: Interpretative data: Lambda light chain restricted, CD19 positive, CD10 negative B-cell population detected (4% of WBCs, 19% of gated lymphocytes). [place] light chain restricted plasma cells, (less [...] MD 12/05/16 1452 Technical component performed by: [place] [address] Guidance Adviser: Jamie Porter II, MD, PhD. 41 RESULT: Monoclonal gammopathy, Hyperlipidemia, unspecified 42 Locus and probes [Strategy;#Nuclei;Class] 3q27(3'BCL6,5'BCL6) [BAP;200;ASR] 8q24(5'MYC,3'MYC) [BAP;200;ASR] 11q13(CCND1-XT),14q32(IGH-XT) [DFISH;500;ASR] 17p13(TP53),17CEN(D17Z1) [COPY#;200;ASR] 18q21(5'MALT1,3'MALT1) [BAP;200;ASR] 18q21(5'BCL2,3'BCL2) [BAP;200;ASR] Probe strategies include: DFISH=dual color, double fusion; BAP=break-apart probe; COPY#=region gain and loss. 43 RESULT: Interphase FISH is normal for all loci studied. 44 Abnormality Name Result %Abn Cutoff (%) 8q24.1(MYC sep) Normal <6.5% -17p13.1(TP53x1,Z32W0x7) Normal <9.5% -17(TP53,D17Z1)x1 Normal <5.5% 18q21(MALT1 sep) Normal <3.5% 18q21(BCL2 sep) Normal <5.5% 3q27(BCL6 sep) Normal <3.5% t(11;14) CCND1-XT/IGH-XT fusion Normal <0.6% 45 This result is within normal limits for the B-cell lymphoma FISH panel. A normal FISH result does not exclude the presence of lymphoma in the bone marrow. Clinical and pathologic correlation is suggested. Additional cytogenetic studies are reported separately. 46 Previous Studies DATE SPECIMEN RESULT 01/26/2015 Marrow Plasma cell FISH abnormal 47 RESULT: Franklyn Pete M.D., Ph.D. Test Performed by: [facility] - [address] [address] 48 Applicable to Analyte Specific Reagent (ASR) and Laboratory Developed Tests (LDT). This test was developed and its performance characteristics determined by [facility] in a manner consistent with CLIA requirements. It has not been cleared or approved by the U.S. Food and Drug Administration. This FISH test does not rule out other chromosome abnormalities. 49 RESULT: Monoclonal gammopathy, Hyperlipidemia, unspecified 50 Locus and probes [Strategy;#Nuclei;Class] 1p36.3(TP73),1q22 [COPY#;50;LDT] 8q24(5'MYC,3'MYC) [BAP;50;ASR] 11q13(CCND1-XT),14q32(IGH-XT) [DFISH;50;ASR] Probe strategies include: DFISH=dual color, double fusion; BAP=break-apart probe; COPY#=region gain and loss. 51 Abnormality Name Result # Abn Total Cells t(11;14) CCND1-XT/IGH-XT Abnormal 6 9 fusion +11(CCND1-XTx3) Normal 0 9 52 RESULT: nuc simon(CCND1-XT,IGH-XT)x3(CCND1-XT con IGH-XTx2) 53 The result is abnormal and indicates a [...] recommended. Additional cytogenetic studies are reported separately. 54 Previous Studies DATE SPECIMEN RESULT 01/26/2015 Marrow Plasma cell FISH abnormal 55 Applicable to Analyte Specific Reagent (ASR) and Laboratory Developed Tests (LDT). This test was developed and its performance characteristics determined by [facility] in a manner consistent with CLIA requirements. It has not been cleared or approved by the U.S. Food and Drug Administration. This FISH test does not rule out other chromosome abnormalities. 56 RESULT: Della Bell D.O. Test Performed by: [facility] - [address] [address] 57 SEE RESULT BELOW Name: DIYA ASHFORD : [address]: Ari Salazar MD Acct: [id number] Unit: [id number] AGE: 76 Location: [facility] Re11/04/16 SEX: M Status: REG REF SPEC: [id number] BRAD: 11/04/16-[address] [facility] [address]: Isaac Ruiz MD REQ: [id number] RECD: 11/04/161536 STATUS: TUNDE SALINAS DR: Franklyn Guillen MD [...] performed at Main Lab DEPARTMENT OF PATHOLOGY, [address] [place] [address] Favian Templeton M.D. Director [facility] # [id number] 58 ADDITIONAL INFORMATION This test was developed and its performance characteristics determined by [facility] in a manner consistent with CLIA requirements. This test has not been cleared or approved by the U.S. Food and Drug Administration. Test Performed by: [facility] - [address] [address] 59 Because ethnic data is not always readily [...] 15-29 5 Kidney failure <15 (or dialysis) 60 SEE RESULT BELOW Name: DIYA ASHFORD : [address]: Gonzalo Nunez MD Acct: [id number] Unit: [id number] AGE: 76 Location: [place] [address] Re09/27/16 SEX: M Status: ADM Kiel SPEC: [id number] BRAD: 09/27/16-[address]: Gonzalo Nunez MD REQ: [id number] RECD: 09/27/16170 STATUS: SOUT _ ORDERED: THIN PREP NON G FINAL DIAGNOSIS Peritoneal fluid: -- Negative for malignant cells. -- Mixed lymphoid elements, macrophages and scattered mesothelial elements only. 1. PERITONEAL - PERITONEAL FLUID GROSS DESCRIPTION 35 mls of cloudy yellow/green fluid. Signed (signature on file) Favian Templeton MD 1327 END OF REPORT * ML=Testing performed at Main Lab DEPARTMENT OF PATHOLOGY, [address] [place] [address] Favian Templeton M.D. Director [place] # [id number] 61 SEE RESULT BELOW Name: DIYA ASHFORD : [address]: Gonzalo Nunez MD Acct: [id number] Unit: [id number] AGE: 76 Location: [place] [address] Re09/27/16 Dis: 09/28/16 SEX: M Status: DIS [place] SPEC: [id number] BRAD: 09/27/16- SUBM DR: Gonzalo Nunez MD REQ: [id number] RECD: 09/27/16 STATUS: SOUT _ ORDERED: TRICHROME [...] and the wall thickness averages 0.1 cm. Supplier Diversity Director sections, one cassette. 2. The specimen is received in formalin labeled, Liver Biopsy, and consists of a 1.5 x 0.1 CONTINUED ON NEXT PAGE * ML=Testing performed at Main Lab DEPARTMENT OF PATHOLOGY, [address] [place] [address] Favian Templeton M.D. Director [facility] # [id number] RUN DATE: 09/29/16 [facility] LAB LIVE PAGE 2 Patient: DIYA ASHFORD [id number] (Continued) GROSS DESCRIPTION (Continued) GROSS DESCRIPTION (Continued) cm patten soft tissue core admixed with scant red-brown blood clot. Entirely submitted, one cassette. Signed (signature on file) Favian Templeton MD 1647 END OF REPORT * ML=Testing performed at Main Lab DEPARTMENT OF PATHOLOGY, [facility] [employer] [place], [place] [address] Favian Templeton M.D. Director CLIA # [id number] RUN DATE: 06/01/14 [facility] LAB LIVE PAGE 1 RUN TIME: 814 [facility] [place], [place] [address] Specimen Inquiry Name: DIYA ASHFORD Анна : [address]: Dominic Jensen MD Acct: [id number] Unit: [id number] AGE: 74 Location: [facility] Re05/28/14 SEX: M Status: REG REF SPEC: [id number] BRAD: 05/28/[address] [facility] [address]: Dominic Jensen MD REQ: [id number] RECD: 05/28/14 STATUS: COMP _ SOURCE: JOINT FLUI SPDESC:KNEE LEFT ORDERED: KIERRA Moscoso/POLLO Procedure Result Verified Site Body Fluid Gram Stain Final 05/28/14- 1055 ML 4+ Neutrophils No Organisms Seen BY CENTRIFUGED SMEAR Body Fluid Culture Final 06/01/14- 0815 ML No Growth Day 4 END OF REPORT * ML=Testing performed at Main Lab DEPARTMENT OF PATHOLOGY, [address] [place] [address] Favian Templeton M.D. Director [facility] # [id number] 63 Synovial (Joint) Fluid Procedures Date Code Description Status 06/12/2018 46486 Abdominal Paracentesis W/Imaging Guidance Completed 05/06/2018 16060 Insertion Intravasular Vena Cava Filter,Endovascular Completed Approach 05/05/2018 69830 EKG, Interpretation Only Completed 04/06/2018 47933 EKG Tracing & Interpretation Completed 03/14/2018 29973 Treadmill Interp/Report Only Completed 03/14/2018 92563 Stress Test Supervsn W/Out I/R Completed 03/08/2018 34934 EKG Tracing & Interpretation Completed 02/27/2018 68891 EKG Tracing & Interpretation Completed 02/22/2018 97237 EKG Tracing & Interpretation Completed 02/22/2018 73056 Pace Maker Eval W/Iterative Adjment Dual Lead Completed 02/22/2018 63747 Pace Maker Eval W/Iterative Adjment Dual Lead Completed 12/07/2017 38990 EKG Tracing & Interpretation Completed 11/30/2017 57002 Treadmill Interp/Report Only Completed 11/30/2017 57219 Stress Test Supervsn W/Out I/R Completed 10/10/2017 88594 Stress Test Completed 10/10/2017 52244 Myocardial Perfusion Imaging Tomographic (Spect) Multiple Completed Studies 10/03/2017 86346 EKG Tracing & Interpretation Completed 09/29/2017 04206 ECHO Transthorasic Realtime 2D W Doppler & Color Flow Hosp Completed 09/29/2017 10449 EKG, Interpretation Only Completed 09/28/2017 71618 Revascularization Acute Total/Subtotal Occlusion Completed 09/28/2017 72058 EKG, Interpretation Only Completed 09/28/2017 53022 Interrogation Device Eval In Person W/DR Completed Analysis,Single,Dual,Mul 09/28/2017 50843 Cath PLMT&NJX L Ventriculog Img S&I Completed 09/27/2017 38847 EKG, Interpretation Only Completed 09/25/2017 02096 EKG, Interpretation Only Completed 09/25/2017 50648 Removal With Replacement Dual Lead System Pulse Generator Completed 09/24/2017 64304 Interrogation Device Eval In Person W/DR Completed Analysis,Single,Dual,Mul 09/22/2017 83725 ECHO Transthorasic Realtime 2D W Doppler & Color Flow Hosp Completed 09/22/2017 05310 EKG, Interpretation Only Completed 09/22/2017 21206 EKG, Interpretation Only Completed 02/23/2017 85130 ECHO Transthorasic Realtime 2D W Doppler & Color Flow Hosp Completed 11/04/2016 23489 Catheter Placement Venous Second Order Branch Completed 11/04/2016 02421 Transcatheter Biopsy Completed 11/04/2016 56370 Venography Liver W/Hemodynamic Evaluation Completed 11/04/2016 42687 Transcatheter Biopsy Radiology Completed 11/04/2016 89797 Ultrasound Guidance For Vascular Access Completed 09/27/2016 58596 Laparoscopy Cholecystectomy Completed 09/27/2016 17776 Laparoscopy Cholecystectomy Completed 09/27/2016 98903 Biopsy Liver W/Other Major Procedure Completed 05/28/2014 49235 Rad Exam; Knee, Ap&L Completed 05/28/2014 26468 Rad Exam; Knee, Ap&L Completed 05/28/2014 93092 Rad Exam; Pelvis Completed 02/03/2012 09599 Rad Exam; Foot Comp Completed Encounters Type Date Location Provider Dx Diagnosis Office Visit 06/24/2018 [facility] Gertrudis K92.2 Gastrointestinal 9:05a Assoc,agustina Cano D.O. hemorrhage, Hospitalists unspecified I25.10 Athscl heart disease of [place] coronary artery w/o ang pctrs K72.90 Hepatic failure, unspecified without coma D62 Acute posthemorrhagic anemia N18.9 Chronic kidney disease, unspecified K76.6 Portal hypertension Office Visit 06/15/2018 [facility] Maryjo Bart, K72.90 Hepatic failure, 8:20a agustina Workman M.D. unspecified Hospitalists without coma K74.69 Other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 liver K51.411 Inflammatory polyps of colon with rectal bleeding N18.4 Chronic kidney disease, stage 4 (severe) D62 Acute posthemorrhagic anemia [facility] K[facility].90 Hepatic failure, 8:20a agustina Workman M.D. unspecified Hospitalists without coma K74.69 Other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 liver D62 Acute posthemorrhagic anemia K51.411 Inflammatory polyps of colon with rectal bleeding N18.4 Chronic kidney disease, stage 4 (severe) [facility] K72.90 Hepatic failure, 8:19a agustina Workman M.D. unspecified Hospitalists without coma K74.69 Other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 liver N18.4 Chronic kidney disease, stage 4 (severe) K51.411 Inflammatory polyps of colon with rectal bleeding [facility] K72.90 Hepatic failure, 8:19a agustina Workman M.D. unspecified Hospitalists without coma K74.69 Other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 liver N18.4 Chronic kidney disease, stage 4 (severe) K51.411 Inflammatory polyps of colon with rectal bleeding Office Visit 06/11/2018 [facility] Donte Nicholson K72.90 Hepatic failure, 8:18a Assocagustina MD unspecified Hospitalists without coma K74.69 Other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 liver N18.9 Chronic kidney disease, unspecified Office Visit 06/10/2018 8:18a [facility] Irma Ruiz K72.90 Hepatic failure, Assocagustina MD unspecified Hospitalists without coma K74.69 Other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 liver N18.4 Chronic kidney disease, stage 4 (severe) D64.9 Anemia, unspecified Office Visit 06/06/2018 8:34a [facility] Luis Manuel Edwards D64.9 Anemia, Assocagustina MD unspecified Hospitalists K74.69 Other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 liver R18.8 Other ascites K51.411 Inflammatory polyps of colon with rectal bleeding Office Visit 06/05/2018 8:34a [facility] Luis Manuel Edwards, D62 Acute posthemorrhagic Assocagustina MD anemia Hospitalists R18.8 Other ascites I25.10 Athscl heart disease of [place] coronary artery w/o ang pctrs N18.4 Chronic kidney disease, stage 4 (severe) K74.69 Other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 liver Office Visit 06/04/2018 [facility] Donte Nicholson D64.9 Anemia, 8:33a agustina Workman MD unspecified Hospitalists K74.69 Other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 liver R18.8 Other ascites K51.411 Inflammatory polyps of colon with rectal bleeding I25.10 Athscl heart disease of [place] coronary artery w/o ang pctrs Office Visit 06/03/2018 8:33a [facility] Irma Ruiz, D62 Acute posthemorrhagic Assocagustina MD anemia Hospitalists I25.10 Athscl heart disease of [place] coronary artery w/o ang pctrs K74.69 Other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 liver N18.4 Chronic kidney disease, stage 4 (severe) K51.411 Inflammatory polyps of colon with rectal bleeding Office Visit 05/07/2018 [facility] Liz K92.2 Gastrointestinal 8:29a Assoc,agustina Knightner, DO hemorrhage, Hospitalists unspecified D62 Acute posthemorrhagic anemia I82.401 Acute embolism and thombos unsp deep veins of r low extrem K74.69 Other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 liver D47.2 Monoclonal gammopathy N18.9 Chronic kidney disease, unspecified Office Visit 05/06/2018 [facility] Nichelle K92.2 Gastrointestinal 8:28a Assagustina chiang, DO hemorrhage, Hospitalists unspecified I95.0 Idiopathic hypotension N18.9 Chronic kidney disease, unspecified K74.69 Other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 liver G47.33 Obstructive sleep apnea (adult) (pediatric) Office Visit 05/05/2018 [facility] Donte Nicholson K92.2 Gastrointestinal 8:28a agustina Workman MD hemorrhage, Hospitalists unspecified I95.0 Idiopathic hypotension D64.9 Anemia, unspecified K74.69 Other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 liver N18.3 Chronic kidney disease, stage 3 (moderate) D47.2 Monoclonal gammopathy Office Visit 05/04/2018 [facility] Donte Nicholson K92.2 Gastrointestinal 8:27a agustina Workman MD hemorrhage, Hospitalists unspecified K74.69 Other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 liver N18.9 Chronic kidney disease, unspecified D64.9 Anemia, unspecified Office Visit 05/03/2018 [facility] Donte Nicholson K92.2 Gastrointestinal 8:27a Assoc,pc MD Andi hemorrhage, Hospitalists unspecified N18.9 Chronic kidney disease, unspecified G47.33 Obstructive sleep apnea (adult) (pediatric) D64.9 Anemia, unspecified K74.69 Other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 liver Office Visit 05/02/2018 8:26a [facility] Romel Moncada, K92.1 Sharda Assoc,pc Hospitalists N.P. N18.9 Chronic kidney disease, unspecified G47.33 Obstructive sleep apnea (adult) (pediatric) Office Visit 04/22/2018 [facility] Jamie K92.2 Gastrointestinal 7:54a Assoc,pc Joel PA hemorrhage, Hospitalists unspecified N18.9 Chronic kidney disease, unspecified G47.33 Obstructive sleep apnea (adult) (pediatric) R18.8 Other ascites Office Visit 04/21/2018 [facility] Jamie K92.2 Gastrointestinal 7:52a Assoc,agustina Maldonado PA hemorrhage, Hospitalists unspecified D64.9 Anemia, unspecified N18.9 Chronic kidney disease, unspecified G47.33 Obstructive sleep apnea (adult) (pediatric) Office Visit 04/20/2018 [facility] Jamie K92.2 Gastrointestinal 7:51a Assoc,agustina Maldonado, PA hemorrhage, Hospitalists unspecified D64.9 Anemia, unspecified R18.8 Other ascites N18.9 Chronic kidney disease, unspecified E78.5 Hyperlipidemia, unspecified G47.33 Obstructive sleep apnea (adult) (pediatric) Office Visit 04/19/2018 7:50a [facility] Assoc,KATIE Alcantar K92.1 Melena Hospitalists N18.9 Chronic kidney disease, unspecified D47.2 Monoclonal gammopathy I25.10 Athscl heart disease of [place] coronary artery w/o ang pctrs Office Visit 04/06/2018 4:20p [facility] Angelic Olmedo, I25.10 Athscl heart Of Investment Representative M.D. disease of [place] coronary artery w/o ang pctrs Z95.0 Presence of cardiac pacemaker I95.9 Hypotension, unspecified K76.6 Portal hypertension Office Visit 04/06/2018 9:00a Pulmonology And Miriam G47.33 Obstructive sleep Sleep Services Of MD Annmarie apnea (adult) [facility] (pediatric) Office Visit 03/23/2018 4:20p [facility] Angelic Olmedo, I25.119 Athscl heart Of [facility] M.D. disease of [place] cor art w unsp ang pctrs Z01.810 Encounter for preprocedural cardiovascular examination Z95.0 Presence of cardiac pacemaker K74.60 Unspecified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 liver Office Visit 03/08/2018 1:30p [facility] Angelic Olmedo, I25.119 Athscl heart Of [facility] M.D. 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 hip M25.562 Pain in left knee M25.561 Pain in right knee Office Visit 12/07/2017 1:45p [facility] Angelic Olmedo, I25.119 Athscl heart Of [facility] M.D. disease of [place] cor art w unsp ang pctrs D64.9 Anemia, unspecified N18.3 Chronic kidney disease, stage 3 (moderate) Z95.0 Presence of cardiac pacemaker K74.60 Unspecified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 liver Office Visit 10/19/2017 [facility] K92.2 Gastrointestinal 2:00p Assoc,agustina Barajas, NEIGHBORHOOD AIDE hemorrhage, Hospitalists unspecified D62 Acute posthemorrhagic anemia R06.02 Shortness of breath I25.118 Athscl heart disease of [place] cor art w oth ang pctrs Office Visit 10/18/2017 12:04p [facility] Angelic Olmedo, K27.4 Chronic or unsp Of Ronal Otto peptic ulcer, site unsp, with hemorrhage I21.4 Non-St elevation (Nstemi) myocardial infarction I25.10 Athscl heart disease of [place] coronary artery w/o ang pctrs [facility] 1:59p Assoc,pc Karl, NEIGHBORHOOD AIDE hemorrhage, Hospitalists unspecified D62 Acute posthemorrhagic anemia R06.02 Shortness of breath I25.118 Athscl heart disease of [place] cor art w ot ang pctrs Office Visit 10/17/2017 [facility] K92.2 Gastrointestinal 1:58p Assoc,pc [place], NEIGHBORHOOD AIDE hemorrhage, Hospitalists unspecified D62 Acute posthemorrhagic anemia I25.118 Athscl heart disease of [place] cor art w [facility] ang pctrs R06.02 Shortness of breath Office Visit 10/16/2017 10:32a [facility] Burak Montague I25.10 Athscl heart Of Ronal Greenfield M.D. disease of [place] coronary artery w/o ang pctrs K92.2 Gastrointestinal hemorrhage, unspecified Office Visit 10/16/2017 [facility] Renetta K92.2 Gastrointestinal 1:57p Assoc,pc [facility] hemorrhage, Hospitalists Dotbessy, NEIGHBORHOOD AIDE unspecified D62 Acute posthemorrhagic anemia I25.118 Athscl heart disease of [place] cor art w [facility] ang pctrs R06.02 Shortness of breath Office Visit 10/04/2017 1:20p [facility] Patrick Joshua Z48.1 Encounter for Cardiology Of [place], FACFlorida, planned Investment Representative AT [facility] postprocedural wound closure I21.4 Non-St elevation (Nstemi) myocardial infarction N18.3 Chronic kidney disease, stage 3 (moderate) D64.9 Anemia, unspecified Office Visit 10/03/2017 10:00a [facility] Angelic Olmedo, Z95.0 Presence of Of Ronal Otto cardiac pacemaker I25.119 Athscl heart disease of [place] cor art w unsp ang pctrs K74.60 Unspecified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 liver N18.9 Chronic kidney disease, unspecified D64.9 Anemia, unspecified I21.4 Non-St elevation (Nstemi) myocardial infarction Office Visit 09/29/2017 [facility] I24.9 Acute ischemic 9:49a Assoc,agustina Downs, NEIGHBORHOOD AIDE heart disease, Hospitalists unspecified R74.8 Abnormal levels of other serum enzymes K74.69 Other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 liver R07.89 Other chest pain Office Visit 09/29/2017 11:18a [facility] Angelic Shara, I25.10 Athscl heart Of [facility] M.D. disease of [place] coronary artery w/o ang pctrs I95.9 Hypotension, unspecified Office Visit 09/28/2017 [facility] I24.9 Acute ischemic 9:48a Assoc,agustina Downs, NEIGHBORHOOD AIDE heart disease, Hospitalists unspecified R74.8 Abnormal levels of other serum enzymes K74.69 Other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 liver Office Visit 09/27/2017 [facility] Patrick Joshua, R79.89 Other specified 9:52a Of [facility] AT [facility].Eddi, FACC, [facility] abnormal findings of blood chemistry Office Visit 09/27/2017 [facility] R07.89 Other chest 9:24a Assoc,agustina Downs, NEIGHBORHOOD AIDE pain Hospitalists R74.8 Abnormal levels of other serum enzymes K74.69 Other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 liver Office Visit 09/27/2017 [facility] Gastroenterology Margarita Singh, K76.6 Portal 7:30a MD hypertension Office Visit 09/27/2017 [facility] Satya Angelic I25.10 Athscl heart 2:37p [facility] Shara, disease of [place] M.D. coronary artery w/o ang pctrs I95.9 Hypotension, unspecified Office Visit 09/26/2017 9:22a [facility] Margarita Echavarria, R07.89 Other chest Assoc,pc N.P. pain Hospitalists R74.8 Abnormal levels of other serum enzymes K74.69 Other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 liver Office Visit 09/24/2017 3:30p [facility] Yves SLow R55 Syncope and Of [facility] Mena, DO FACC collapse E87.70 Fluid overload, unspecified Z95.0 Presence of cardiac pacemaker Office Visit 09/23/2017 12:32p [facility] Yves S. R55 Syncope and Of [facility] Mena, DO FACC collapse Z95.0 Presence of cardiac pacemaker Office Visit 09/22/2017 12:34p [facility] Yves Dsouza R55 Syncope and Of [facility] DO Rajesh FACC collapse Z95.0 Presence of cardiac pacemaker Office Visit 09/21/2017 2:30p [facility] Angelic Olmedo, Z95.0 Presence of Of Investment Representative AT [facility] M.DLow cardiac pacemaker R06.02 Shortness of breath I25.10 Athscl heart disease of [place] coronary artery w/o ang pctrs Office Visit 08/14/2017 2:40p [facility] Allison Montague R18.8 Other ascites Infectious [place] Wei Diseases Office Visit 07/10/2017 3:40p [facility] Allison Montague K73.9 Chronic Infectious [place] Wei hepatitis, Diseases unspecified R18.8 Other ascites Office Visit 03/30/2017 Pul[facility]ology And Miriam Anguiano, G47.33 Obstructive 9:45a Sleep Services Of sleep apnea [facility] (adult) (pediatric) Office Visit 09/27/2016 [facility] Kofi 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,pc Yareli, NEIGHBORHOOD AIDE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 Hospitalists liver with ascites G47.33 Obstructive sleep apnea (adult) (pediatric) I10 Essential (primary) hypertension Z90.49 Acquired absence of other specified parts of digestive tract Office Visit 08/10/2016 Surgical Gonzalo Nunez, K80.20 Calculus of 1:30p [facility] , FACS gallbladder w/o cholecystitis w/o obstruction Office Visit 03/01/2016 Pulmonology And Miriam G47.33 Obstructive sleep 9:45a Sleep Services Of MD Annmarie apnea (adult) [facility] (pediatric) K21.9 Gastro-esophageal reflux disease without esophagitis E66.01 Morbid (severe) obesity due to excess calories Office Visit 07/07/2014 9:15a Orthopedic Dominic Jensen, 724.4 Neuritis Or Services Of Andre Otto Radiculitis Thoracic Or Lumbosacral Unspec Office Visit 06/30/2014 8:45a Pulmonology And Miriam 327.23 Obstructive Sleep Sleep Services Of MD Annmarie Apnea Adult & Investment Representative Pediatric 719.46 Pain Joint Lower Leg Office Visit 06/11/2014 Orthopedic Dominic Jensen, 715.16 Osteoarthrosis 9:15a Services Of [place] Localized Prim Lower C.M.A. Leg Office Visit 05/28/2014 Orthopedic Dominic Jensen, 715.16 Osteoarthrosis 8:00a Services Of [place] Localized Prim Lower C.M.A. Leg Office Visit 03/05/2012 Orthopedic Bryan 845.10 Sprains & Strains 11:15a Services Of [place] Dee Foot Unspec Site C.M.A. Office Visit 02/10/2012 [facility] 729.5 Pain In Limb 8:15a Services Of [place] Dee C.M.A. Office Visit 02/03/2012 [facility] 729.5 Pain In Limb 11:30a Services Of [place] Dee C.M.A. Plan of Treatment Future Appointment(s):04/08/2019 10:30 am - Miriam Anguiano MD at Pul[facility]ology [facility]04/06/2018 - Angelic Olmedo M.D.I25.10 Atherosclerotic heart disease of [place] coronary artery without angina pectorisReferral:Cardiac- [facility], Rehab:Cardiac Fac/ClinicFollow up:6 weeks approx. Keep current pacer schedule.Z95.0 Presence of cardiac pacemakerComments:ECG shows working well.I95.9 Hypotension, unspecifiedComments:Ensure you get enough fluid.Recommendations:STOP isosorbide.K76.6 Portal hypertension
--- NOTE | 2018-07-03 09:56 | ED ---
Altered Mental Status - HPI Summary HPI Summary: This pt is a 78 y/o male presenting to [facility] via EMS from Dr. Olmedo's office for altered mental status and elevated ammonia levels. reports the pt was acting ok yesterday and pt only seemed to be tired. This morning states the pt went to the bathroom before 06:15 and didn't come out until 08:15, and the pt seemed confused. Additionally according to the pt was speaking slower and did not answer everything that was asked. Per , pt seems lethargic has been sleeping a lot more (around 13-14 hours) and has had decreased appetite. Son reports pt has tremors in his hands. Family denies fever , cough, SOB, diarrhea, vomiting. Pt denies any pain, abd pain, chest pain. PMHx includes HTN, HI, pacemaker, DVT with filter in place. Pt is not anticoagulated. - History Of Current Complaint Chief Complaint: EDAltMentalStatus Stated Complaint: AMS Time Seen by Provider: 07/03/18 09:36 Hx Obtained From: Patient, Family/Supervisor [employer] - and son Timing: Lasting Hours Severity Currently: Moderate Character: Confusion, Lethargy Aggravating Factor(s): Nothing Alleviating Factor(s): Nothing Associated Signs And Symptoms: Negative: Dizziness, Seizure, Nausea, Vomiting, Fever - Allergies/Home Medications Allergies/Adverse Reactions: Allergies Allergy/AdvReac Type Severity Reaction Status Date / Time Adhesive Tape Allergy Unknown Verified 07/03/18 09:41 Reaction Details horse dander Allergy Swelling Verified 07/03/18 09:41 Horse/Equine Containing Allergy Hives Verified 07/03/18 09:41 Products latex Allergy Unknown Verified 07/03/18 09:41 Reaction Details midodrine Allergy Unknown Verified 07/03/18 09:41 Reaction Details HORSE SERUM Allergy Severe Swelling, Uncoded 07/03/18 09:41 hives PMH/Surg Hx/FS Hx/Imm Hx Endocrine/Hematology History: Reports: Hx Anticoagulant Therapy, Hx Anemia, Hx Unexplained Bleeding Cardiovascular History: Reports: Hx Angina, Hx Coronary Artery Disease, Hx Deep Vein Thrombosis - with filter in place , Hx Hypercholesterolemia, Hx Hypertension, Hx Myocardial Infarction, Hx Pacemaker/ICD - pacemaker Respiratory History: Reports: Hx Sleep Apnea - current CPAP user GI History: Reports: Hx Cirrhosis - noncirrhotic , Hx Gastroesophageal Reflux Disease, Hx Gastrointestinal Bleed - with encephalopathy, hx ascites, Hx Irritable Bowel, Other GI Disorders - brijesh'y, jessika'y History: Reports: Other Problems/Disorders - weak bladder s/p bladder cancer, colon polyps Musculoskeletal History: Reports: Other Musculoskeletal History - hammer toes, both feet, had sx. Denies: Hx Rheumatoid Arthritis Sensory History: Reports: Hx Contacts or Glasses Denies: Hx Deafness, Hx Hearing Aid, Other Sensory Impairments Opthamlomology History: Reports: Hx Contacts or Glasses Denies: Other Sensory Impairments Neurological History: Denies: Hx Headaches, Hx Seizures, Hx Transient Ischemic Attacks (TIA) Psychiatric History: Denies: Hx Autism, Hx Schizophrenia - Cancer History Cancer Type, Location and Year: bladder cancer Hx Chemotherapy: No - Surgical History Surgery Procedure, Year, and Place: cataract surgery with lens implants bilat eyes. hammer toe repair bilat feet. appendectomy. cholecystectomy. cardiac stents 2018. colonoscopy with polyp removal 2017 Hx Anesthesia Reactions: No - Immunization History Date of Tetanus Vaccine: unk Date of Influenza Vaccine: fall 2017 Infectious Disease History: No Infectious Disease History: Denies: Traveled Outside the [place] in Last 30 Days - Family History Known Family History: Positive: Cardiac Disease Negative: Hypertension, Diabetes - Social History Alcohol Use: None Alcohol Amount: none since August when issues started Substance Use Type: Reports: None Hx Tobacco Use: No Smoking Status (MU): Former Smoker Type: Cigarettes Have You Smoked in the Last Year: No Review of Systems Constitutional: Other - POS: decreased appetite, sleeping more Negative: Fever, Chills Negative: Chest Pain Negative: Shortness Of Breath, Cough Negative: Abdominal Pain, Vomiting, Diarrhea Neurological: Other - POS: AMS, tremors in hands, confusion All Other Systems Reviewed And Are Negative: Yes Physical Exam - Summary Physical Exam Summary: VITAL SIGNS: Reviewed. GENERAL: Patient is a well-developed and nourished male who is lying comfortable in the stretcher. Patient is not in any acute respiratory distress. HEAD AND FACE: No signs of trauma. No ecchymosis, hematomas or skull depressions. No sinus tenderness. EYES: PERRLA, EOMI x 2, No injected conjunctiva, no nystagmus. EARS: Hearing grossly intact. Ear canals and tympanic membranes are within normal limits. MOUTH: Oropharynx within normal limits. NECK: Supple, trachea is midline, no adenopathy, no JVD, no carotid bruit, no c- spine tenderness, neck with full ROM. CHEST: Symmetric, no tenderness at palpation LUNGS: Clear to auscultation bilaterally. No wheezing or crackles. CVS: Regular rate and rhythm, S1 and S2 present, no murmurs or gallops appreciated. ABDOMEN: Soft, non-tender. No signs of distention. No rebound, no guarding, and no masses palpated. Bowel sounds are normal. EXTREMITIES: FROM in all major joints, no cyanosis or clubbing. Lower extremity edema bilaterally. NEURO: Alert and oriented x 3. No acute neurological deficits. Speech is normal and follows commands. SKIN: Dry and warm GCS: 15 Triage Information Reviewed: Yes Vital Signs On Initial Exam: Initial Vitals Temp Pulse Resp BP Pulse Ox 97.4 F 69 18 134/74 99 07/03/18 09:38 07/03/18 09:38 07/03/18 09:38 07/03/18 09:38 07/03/18 09:38 Vital Signs Reviewed: Yes Diagnostics - Vital Signs Vital Signs Temp Pulse Resp BP Pulse Ox 07/03/18 09:38 97.4 F 69 18 134/74 99 - Laboratory Result Diagrams: 07/03/18 10:05 07/03/18 10:05 Lab Statement: Any lab studies that have been ordered have been reviewed, and results considered in the medical decision making process. - Radiology Chest XR Radiology Interpretation Completed By: Radiologist Summary of Radiographic Findings: IMPRESSION: Mild interstitial edema persists. Dr. Estrada has reviewed this report. - CT Brain CT CT Interpretation Completed By: Radiologist Summary of CT Findings: IMPRESSION: No intracranial mass or hemorrhage is noted. Dr. Estrada has reviewed this report. - EKG 09:57 Cardiac Rate: NL - at 70 bpm EKG Comparison: No Significant Change - compare to EKG on 06/29/18. Summary of EKG Findings: Ventricular paced rhythm at 70 bpm. Altered Mental Statu Course/Dx - Course Assessment/Plan: This pt is a 78 y/o male presenting to [facility] via EMS from Dr. Olmedo's office for altered mental status and elevated ammonia levels. reports the pt was acting ok yesterday and pt only seemed to be tired. This morning states the pt went to the bathroom before 06:15 and didn't come out until 08:15, and the pt seemed confused. Additionally according to the pt was speaking slower and did not answer everything that was asked. Per , pt seems lethargic has been sleeping a lot more (around 13-14 hours) and has had decreased appetite. Son reports pt has tremors in his hands. Family denies fever, cough, SOB, diarrhea, vomiting. Pt denies any pain, abd pain, chest pain. PMHx includes HTN, HI, pacemaker, DVT with filter in place. Pt is not anticoagulated. Blood work without any significant abnormality except for WBCs of 2.9, slight anemia, BUN 35, creatinine 2.13 which is a little worse from his previous creatinine. Lactic acid is 2.2, ammonia level is 80. Therefore, I believe that the patient is having a hepatic encephalopathy. In the ED course the patient was given lactulose and IV fluids. Head CT impression: No intracranial mass or hemorrhage. Chest x-ray impression: Mild interstitial edema persist. I discussed my physical exam, findings and test results with Dr. Strong from the hospitalist services and she agrees to admit patient to her services. Patient is hemodynamically stable, alert and oriented x 3. - Diagnoses Provider Diagnoses: Hepatic encephalopathy - Provider Notifications Discussed Care Of Patient With: Angelique Strong - hospitalist Time Discussed With Above Provider: 12:10 Instructed by Provider To: Admit As Inpatient Discharge - Sign-Out/Discharge Documenting (check all that apply): Patient Departure - Admit to [facility] - Discharge Plan Condition: Stable Disposition: ADMITTED TO [facility] - Billing Disposition and Condition Condition: STABLE Disposition: Admitted to [facility] - Attestation Statements Document Initiated by Shakeel: Yes Documenting Scribe: Rosalba Wolfe Provider For Whom Shakeel is Documenting (Include Credential): Santos Estrada MD Scribe Attestation: IRosalba, scribed for Santos Estrada MD on 07/03/18 at 1833. Scribe Documentation Reviewed: Yes Provider Attestation: The documentation as recorded by the Rosalba carvajal accurately reflects the service I personally performed and the decisions made by me, Santos Estrada MD Status of Scribe Document: Viewed
[2018-07-03 10:25] LABS: ABS Basophils 0 10^3/ul (0-0.2); ABS Eosinophils 0 10^3/ul (0-0.6); ABS Lymphocytes 0.4 10^3/ul (1.0-4.8); ABS Monocytes 0.2 10^3/ul (0-0.8); ABS Neutrophils 2.2 10^3/ul (1.5-7.7); ABS Nucleated RBC 0 10^3/ul; Eosinophil % 1.3 %; Hematocrit 28 % (42-52); Hemoglobin 9.7 g/dl (14.0-18.0); Lymphocyte % 14.8 %; Mean Corpuscular HGB Conc 34 g/dl (31-36); Mean Corpuscular Hemoglobin 31 pg (27-31); Mean Corpuscular Volume 91 fL (80-94); Mean Platelet Volume 7.5 fL (7.4-10.4); Nucleated Red Blood Cells % 0.1; Platelet Count 148 10^3/ul (150-450); Red Cell Distribution Width 21 % (10.5-15); White Blood Count 2.9 10^3/ul (3.5-10.8)
[2018-07-03 10:36] LABS: EGFR Non-African American 30.4 (>60)
[2018-07-03] MEDS: Lactulose* 15 ML UDC PO SCH ×2 (16:37→20:57)
--- NOTE | 2018-07-03 20:42 | HP ---
CC: Dr. Olemdo * HISTORY AND PHYSICAL: DATE OF ADMISSION: 07/03/18 PROVIDER: Sima Barajas NP PRIMARY CARE PROVIDER: Dr. Johnston. ATTENDING PROVIDER: Dr. Angelique Dorman * (DICTATED BY SIMA BARAJAS NP) CHIEF COMPLAINT: Altered mental status. HISTORY OF PRESENT ILLNESS: Mr. 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 He has been recently admitted to the facility at [facility] for GI bleed and discharged. Most recent discharge was on 06/30/18. The patient over the hospitalizations has developed DVT in his right lower extremity and due to the increased gastrointestinal bleeding, his Plavix was discontinued. Per the , this morning, the woke at approximately 6:15, the patient was in the bathroom. She called to the patient at 6:30. He reported he was okay and she woke again at 8 and the patient was still in the bathroom. She called to him, the patient reported that he was okay, but the patient was unable to get up out of the bathroom. The patient finally got back to bed at 8: 30 and went back to sleep. The attempted to wake the patient at 9 for his doctor appointment with Dr. Olmedo today. The patient kept stating it was too early and would attempt to go back to sleep, so the patient called EMS for evaluation. EMS arrived and the patient was able to answer all questions appropriately. So, they reported they were unable to transport him, if he did not want to come that he had a right to refuse. Finally, they were able to convince the patient to come to the hospital, so he presented to the hospital with alteration in mental status. The patient also complains of increased fatigue. He does not remember the events of this morning. He does remember that last night, he ate dinner and prior to bed, he went and took a shower by himself, shaved and laid his clothes out for his doctor's appointment this morning and was feeling better, but does complain of increased fatigue over the past several days. He does report brown stool today, no blood or black or tarry. Given his change in mental status, we were asked to see and evaluate him for admission. PAST MEDICAL HISTORY: Significant for: 1. Cryptogenic liver cirrhosis. 2. Hepatic encephalopathy. 3. Recurrent GI bleeds. 4. History of coronary artery disease status post stent in 2018 with in-stent restenosis in February 2018 and 3 more stents were placed. 5. Status post pacemaker placement for sick sinus syndrome. 6. Sleep apnea, on CPAP. 7. Anemia. 8. DVT. 9. Monoclonal gammopathy. 10. Status post TIPS procedure. 11. Polypectomy at [facility] on 06/19/18. 12. Status post IVC filter placement. 13. Laparoscopic cholecystectomy. MEDICATIONS: Home medications include: 1. Crestor 40 mg p.o. daily. 2. Lactulose 15 mL b.i.d. 3. Furosemide 40 mg p.o. daily. 4. Aspirin 81 mg p.o. daily. 5. Aldactone 50 mg p.o. daily. 6. Metoprolol succinate 12.5 mg p.o. b.i.d. 7. Protonix 40 mg b.i.d. ALLERGIES: Include: 1. ADHESIVE TAPE. 2. HORSE DANDER. FAMILY HISTORY: Mother at the age of 25 giving . Father with a history of cancer. SOCIAL HISTORY: The patient denies any tobacco, alcohol, or illicit drug use. 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 His surrogate decision maker is his . He is a full code. REVIEW OF SYSTEMS: The patient denies any fever or anorexia. Denies any chest pain. Does report lower extremity edema, right leg worse than left. Denies any cough, hemoptysis, or shortness of breath. Does report some nausea yesterday, no nausea today. Denies any vomiting, diarrhea, or abdominal pain. Denies any hematuria or dysuria. Denies any focal weakness or sensory loss. Denies any facial complaints. Denies any dysphagia. Denies any arthralgias, myalgias, rashes, lesions, psychosis, or anxiety. PHYSICAL EXAMINATION GENERAL: Mr. Ashford is a 78-year-old male. He is sitting on the stretcher in the emergency room. He is awake and alert, oriented x3. He does not appear to be in any acute distress. He does appear mildly fatigued. VITAL SIGNS: Blood pressure 110/53, heart rate is 85, respirations are 17, O2 saturation 99% on room air, temperature was 97.4. HEENT: Head is atraumatic, normocephalic. Eyes: EOMs are intact. Sclerae anicteric and not pale. Oral mucosa is moist. NECK: Supple. LUNGS: A few fine crackles at the bases bilaterally, otherwise clear. No rales or wheezing. CARDIOVASCULAR: S1, S2. Regular rate and rhythm. No murmurs, rubs, or gallops. ABDOMEN: Rounded, soft. Bowel sounds are present x4. No rebound, tenderness, or guarding. Mild ascites is present. EXTREMITIES: There is 1+ bilateral pitting edema. Pulses are +2 bilaterally. No clubbing or cyanosis. Right leg with more swelling than left. NEUROLOGIC: His speech is clear. He is alert and oriented x3. He is able to move all 4 extremities with 5/5 strength. Cranial nerves II through XII are intact. DIAGNOSTIC STUDIES/LAB DATA: WBCs are 2.9, RBCs 3.10, hemoglobin 9.7, hematocrit is 28, platelet count was 148. Sodium 137, potassium 4.2, chloride 109, carbon dioxide was 21, anion gap was 7, BUN was 35, creatinine 2.13, glucose was 139. Lactic acid was 2.2. Calcium 8.4. Magnesium 1.9. ASTs are 58 , ALTs are 46, alkaline phosphatase was 164. Ammonia level was 80. was 21. Troponin 0.00 x1. TSH was 0.25. He had a CT of the brain, which showed no intracranial mass or bleed. He had a portable chest x-ray that showed mild interstitial edema unchanged from previous chest x-ray. He had an electrocardiogram, which shows a paced rhythm at a rate of 70. ASSESSMENT AND PLAN: 1. Altered mental status. I suspect this is related to hepatic encephalopathy as the patient does have a chronic history of cryptogenic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 the liver. His ammonia level is elevated at 80. He also reports a recent decrease in his lactulose. I will increase his lactulose to 15 mL q.i.d. and repeat ammonia level tomorrow. We will monitor him overnight. I will hold off on IV fluids as the patient does have mild ascites and a history of cryptogenic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 the liver. 2. History of gastrointestinal bleed. The patient currently is not reporting any blood in the stool. He does report that the stool was brown. We will continue to monitor his H and H throughout his hospitalization. I will continue him on his Protonix as per home. I will also continue his aspirin as he does have a history of severe coronary artery disease. 3. History of coronary artery disease. We will continue his home medications as previously prescribed. I will continue furosemide 40 mg p.o. daily, aspirin 81 mg p.o. daily, Aldactone 50 mg p.o. daily, metoprolol 12.5 mg p.o. b.i.d., and Crestor 40 mg p.o. daily. The patient was supposed to have appointment with Dr. Olmedo today for evaluation on restarting his Plavix. At this time, I will continue to hold his Plavix and Dr. Olmedo from Cardiology should be contacted in regards to resuming his Plavix or not, but given the patient's significant history of GI bleed, there is a definite concern for restarting Plavix, but the patient does have history of severe coronary artery disease with recent stenting, so the need for Plavix evaluation is there. 4. Hyperlipidemia. Crestor 40 mg p.o. daily. TSH remains low. It has improved since his last hospitalization. 5. History of deep vein thrombosis. At this point, it is contraindicated to place the patient on anticoagulation due to his recent history of severe gastrointestinal bleed. I am unable to put SCDs on, as the patient does have deep vein thrombosis in his right lower extremity. I will encourage ambulation. The patient does have highest risk at level 8 on DVT assessment scale, but due to his recent history of severe gastrointestinal bleed and deep vein thrombosis in his right lower extremity, mechanical and chemical DVT prophylaxis are contraindicated. 6. High ammonia level. I will place him on lactulose 15 mL q.i.d. and repeat ammonia level tomorrow. TIME SPENT: Time spent on this admission was 60 minutes, greater than half the time was spent with the patient and his obtaining my history and physical, the other half of the time was spent going over my plan of care and implementing my plan of care. I have discussed this with my attending, Dr. Angelique Dorman, she is in agreement with my plan. SIMA BARAJAS, PATTERN DRAFTER [id number]/[facility] #: [id number] [place]
[2018-07-03] MEDS: Metoprolol Succinate XL TAB* 25 MG PO SCH (20:57)
[2018-07-03] MEDS: Omeprazole CAP* 20 MG PO SCH (20:57)
[2018-07-04 06:26] LABS: ABS Basophils 0 10^3/ul (0-0.2); ABS Eosinophils 0.1 10^3/ul (0-0.6); ABS Lymphocytes 0.7 10^3/ul (1.0-4.8); ABS Monocytes 0.2 10^3/ul (0-0.8); ABS Nucleated RBC 0 10^3/ul; Eosinophil % 5.1 %; Hematocrit 23 % (42-52); Lymphocyte % 34.3 %; Mean Corpuscular HGB Conc 34 g/dl (31-36); Mean Corpuscular Hemoglobin 31 pg (27-31); Mean Corpuscular Volume 90 fL (80-94); Mean Platelet Volume 7.3 fL (7.4-10.4); Nucleated Red Blood Cells % 0.4; Platelet Count 139 10^3/ul (150-450); Red Blood Count 2.57 10^6/ul (4.00-5.40); Red Cell Distribution Width 20 % (10.5-15)
[2018-07-04 06:32] LABS: INR 1.08 (0.77-1.02)
[2018-07-04 07:28] LABS: EGFR Non-African American 34.6 (>60)
[2018-07-04] MEDS: Lactulose* 15 ML UDC PO SCH ×4 (08:39→20:41)
[2018-07-04] MEDS: Spironolactone TAB* 25 MG PO SCH (08:40)
[2018-07-04] MEDS: Magnesium Oxide TAB* 400 MG PO SCH (08:40)
[2018-07-04] MEDS: Atorvastatin* 80 MG TAB PO SCH (08:40)
[2018-07-04] MEDS: Omeprazole CAP* 20 MG PO SCH ×2 (08:40→20:39)
[2018-07-04] MEDS: Metoprolol Succinate XL TAB* 25 MG PO SCH ×3 (08:41→20:12)
[2018-07-04] MEDS: Furosemide TAB* 40 MG PO SCH (08:41)
[2018-07-04] MEDS: Aspirin EC TAB* 81 MG TAB.EC PO SCH (08:41)
[2018-07-04] MEDS ORDERED: Ondansetron INJ* 2 MG/ML VIAL IV PRN (13:38)
--- NOTE | 2018-07-04 17:30 | CONS ---
GASTROENTEROLOGY CONSULT NOTE: DATE OF CONSULT: 07/04/18 REASON FOR CONSULT: Anemia and encephalopathy. REQUESTING PROVIDER: Dr. Dorman. HISTORY OF PRESENT ILLNESS: Mr. Ashford is a 78-year-old very pleasant gentleman with a history of noncirrhotic portal hypertension status post TIPS, CAD status post stenting in 2018 with in-stent restenosis in February 2018, monoclonal gammopathy, lower extremity DVT status post IVC filter placement, and multiple recent admissions for anemia attributed to large oozing colon polyps in the setting of Plavix, who is admitted with encephalopathy. Mr. Ashford is well known to the GI service. He has been seen most recently for issues with acute on chronic anemia. He has had melena on multiple occasions. Endoscopy revealed multiple polyps that were likely oozing in the setting of Plavix. In late May, he was seen at [facility] and had a colonoscopy performed (Plavix held). There were 11 polyps removed and 5 clips were placed. Path: tubular adenomas. He was told to restart the Plavix after 2 days. Unfortunately , he did develop some bright red blood per rectum a few days after the colonoscopy. He was hospitalized briefly and was told to hold the Plavix again. The rectal bleeding stopped, and he was told to restart the Plavix yesterday. Unfortunately, he is now admitted for encephalopathy, so he did not restart the Plavix yet. Current admission is for altered mental status. The patient's yesterday morning noticed that he was sitting in the bathroom for 2 hours. He would not come out of the bathroom despite multiple attempts by patient's and son. EMS was called and patient was brought to ER for evaluation. The patient had been recently hospitalized for the rectal bleeding and during that admission was receiving lactulose 45 mL 4 times a day. His states he was discharged on lactulose 15 mL twice a day. He was only having 1 to 2 bowel movements a day at home. His is suspicious that this is part of the reason that he has gotten more confused. The patient reported dark brown stools (not black or bloody) a few days ago, but the stool has been brown over past few days. He has pooped twice today, and he remains quite lethargic and fatigued. He is fully oriented and aware of why he was here. He states that he was having hallucinations at home, but does not elaborate. Denies any ascites or significant edema. PAST MEDICAL/SURGICAL HISTORY: Notable for: 1. Noncirrhotic portal hypertension status post TIPS, complicated by encephalopathy. 2. Recurrent GI bleeds, discussed above. 3. CAD, status post stenting with in-stent restenosis in February 2018. Plavix is currently being held as above. 4. Pacemaker placement for sick sinus syndrome. 5. Sleep apnea, on CPAP. 6. DVT status post IVC filter. 7. Monoclonal gammopathy. 8. Cholecystectomy previously. MEDICATIONS: Home medications include: 1. Crestor 40 mg daily. 2. Lactulose 15 mL b.i.d. 3. Furosemide 40 p.o. daily. 4. Aspirin 81 daily. 5. Aldactone 50 mg daily. 6. Metoprolol 12.5 twice daily. 7. Protonix 40 twice daily. ALLERGIES: To ADHESIVE TAPES and HORSE DANDER. FAMILY HISTORY: No history of liver disease. 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 No alcohol, tobacco, or drug use. REVIEW OF SYSTEMS: A 14-point review of systems is negative except as above. PHYSICAL EXAM: Vital Signs: Afebrile, heart rate 50 to 60s, blood pressure 106/41, 97% on room air. General: Chronically ill-appearing gentleman, looks quite tired. Lying in bed, but does awaken and participates in conversation. He is fully oriented. He is very polite and asks appropriate questions. HEENT: Sclerae anicteric. Mucous membranes are moist. Lungs: Breathing comfortably, clear to auscultation in anterior lung aguero. Cardiovascular: Regular rate and rhythm. Abdomen: Soft, nontender, nondistended. No significant ascites. Extremities: No significant edema. Neuro: A and O x3. Speech is a bit slowed. No asterixis. DIAGNOSTIC STUDIES/LAB DATA: Labs reviewed. White count 2.9 on admission down to 2, hemoglobin 9.7 on admission with a hematocrit of 28 yesterday morning. This morning, hemoglobin was 8 with a hematocrit of 23. In comparison, the patient's hemoglobin was 9 on 06/30/18 at the time of most recent discharge. INR is 1.08. Comprehensive panel notable for a creatinine of 2.13 on admission now down to 1.9. Lactic acid 2.2 on admission. AST 58 on admission, ALT 46, alk phos 164. Ammonia 100 today. IMPRESSION: Mr. Abdulky is a 78-year-old gentleman with a complicated medical history including noncirrhotic portal hypertension status post TIPS, coronary artery disease status post stenting with a recent in-stent restenosis, monoclonal gammopathy, and recent multiple admissions for anemia attributed to large colon polyps, oozing in the setting of Plavix, now status post multiple polypectomies, who is admitted with encephalopathy. Mr. Ashford is admitted with hepatic encephalopathy, which seems most likely to be attributable to decreased bowel movements on a reduced dose of lactulose. He is still quite fatigued and slow in his responses, although his interactions are quite appropriate when prompted .He is also fully oriented and without significant asterixis. He has only had 2 bowel movements today, so I suspect he still needs to have additional doses of lactulose to help improve his mental status status further. From an anemia standpoint, the patient has had multiple large polyps removed in late May at [facility]. He had a BRBPR after the polypectomy and restarting the Plavix, which has resolved. Describes dark stools a few days ago, but he denies seeing melena like before. Possible that the drop in Hgb my be spurious. RECOMMENDATIONS: 1. Increase lactulose to 30 to 45 mL 4 times a day. Goal 3 to 4 bowel movements per day. Can decrease dose once the patient has hit goal bowel movements. 2. Start rifaximin 550 mg twice daily. This is used for refractory encephalopathy and should be given upon discharge for the patient to continue. 3. Please repeat CBCs now and follow in the a.m. 4. No plan for endoscopy at this point since the patient is not having overt bleeding. Reconsider if blood counts continue to drop and/or overt bleeding seen. Currently off Plavix but hopefuly can restart soon if anemia or bleeding do not outside sales representative to be an ongoing active issue. Thank you for this consult. GI will continue to follow. [id number]/[facility] #: [id number] [facility]SDAM HOSPITALMadeleine
[2018-07-04 18:32] LABS: Hematocrit 24 % (42-52); Hemoglobin 8.4 g/dl (14.0-18.0)
--- NOTE | 2018-07-04 18:39 | PN ---
Subjective Date of Service: 07/04/18 Interval History: appears fatigued today , color pale, report brown stools today, denies black or tarry stools. Denies dizziness or shortness of breath. Denies chest pain . Denies abd pain n/v/d. alert able to answer questions appropriately Family History: Unchanged from Admission Social History: Unchanged from Admission Past Medical History: Unchanged from Admission Objective Active Medications: Aspirin (Aspirin Ec Tab*) 81 mg PO DAILY [facility] Last Admin: 07/04/18 08:41 Dose: 81 mg Atorvastatin Calcium (Lipitor*) 80 mg PO DAILY [facility] Last Admin: 07/04/18 08:40 Dose: 80 mg Furosemide (Lasix Tab*) 40 mg PO DAILY [facility] Last Admin: 07/04/18 08:41 Dose: 40 mg Lactulose (Lactulose*) 30 ml PO QID [facility] Last Admin: 07/04/18 16:50 Dose: 30 ml Magnesium Oxide (Magox 400 Tab*) 400 mg PO DAILY [facility] Last Admin: 07/04/18 08:40 Dose: 400 mg Metoprolol Succinate (Toprol Xl Tab*) 12.5 mg PO BID [facility] Last Admin: 07/04/18 12:05 Dose: 12.5 mg Omeprazole (Prilosec Cap*) 20 mg PO BID [facility] Last Admin: 07/04/18 08:40 Dose: 20 mg Ondansetron HCl (Zofran Inj*) 4 mg IV Q6H PRN PRN Reason: NAUSEA Last Admin: 07/04/18 13:45 Dose: 4 mg Rifaximin (Xifaxan*) 550 mg PO BID [facility] Spironolactone (Aldactone Tab*) 50 mg PO DAILY [facility] Last Admin: 07/04/18 08:40 Dose: 50 mg Vital Signs - 8 hr 07/04/18 07/04/18 07/04/18 11:36 11:46 14:00 Temperature 97.9 F 98.2 F Pulse Rate 69 54 Respiratory 18 16 Rate Blood Pressure 150/66 146/74 106/41 (mmHg) O2 Sat by Pulse 98 97 Oximetry 07/04/18 14:08 Temperature Pulse Rate Respiratory Rate Blood Pressure 114/72 (mmHg) O2 Sat by Pulse Oximetry Oxygen Devices in Use Now: None Appearance: pale, appear weak and fatigued , no acute distress Eyes: No Scleral Icterus Ears/Nose/Mouth/Throat: Clear Oropharnyx, Mucous Membranes Moist Neck: NL Appearance and Movements; NL JVP, Trachea Midline, No Thyroid Enlargement, Masses Respiratory: Symmetrical Chest Expansion and Respiratory Effort, Clear to Auscultation, - - few scattered rhonchi in the bases bilat Cardiovascular: NL Sounds; No Murmurs; No JVD Abdominal: - - normal BS , no tenderness, mild distention, soft Extremities: No Clubbing, Cyanosis, - - mild +1 pitting edema to bilat lower legs Skin: No Rash or Ulcers Neurological: Alert and Oriented x 3 Nutrition: Taking PO's Result Diagrams: 07/04/18 16:32 07/04/18 06:09 Assess/Plan/Problems-Billing Assessment: - Patient Problems (1) Hepatic encephalopathy Current Visit: No Status: Acute Code(s): K72.90 - HEPATIC FAILURE, UNSPECIFIED WITHOUT COMA SNOMED Code(s): 20451881 Comment: - Ammonia 100 today - patient more fatigued - GI consulted - will increase Lactulose to 30 ml QID and start Xifaxan 550mg BID as per recommendations (2) Increased ammonia level Current Visit: Yes Status: Acute Code(s): R79.89 - OTHER SPECIFIED ABNORMAL FINDINGS OF BLOOD CHEMISTRY SNOMED Code(s): 416844378 Comment: suspect this is contributing to his hepatic encephalopathy - will increased lactulose to 30 ml qid - will start rifaximin 550 mg BID - repeat ammonia in the AM (3) Anemia Current Visit: No Status: Acute Code(s): D64.9 - ANEMIA, UNSPECIFIED SNOMED Code(s): 615935892 Comment: -will check stool occult - h/h dropped from 9.7/28 to 8- will continue to monitor for signs of bleeding - reports brown stools today- no bright red blood from the rectum or black or tarry stools - spoke to Dr. Olmedo - can continue to hold plavix at this time d/t the bleeding - GI consulted d/t chronic Gi bleeding (4) Ascites Current Visit: No Status: Acute Code(s): R18.8 - OTHER ASCITES SNOMED Code (s): 710249666 Comment: stable -cont home spironolactone cont Lasix (5) CAD (coronary artery disease) Current Visit: No Status: Acute Code(s): I25.10 - ATHSCL HEART DISEASE OF [place] CORONARY ARTERY W/O ANG PCTRS SNOMED Code(s): 05285582 Comment: Pt s/p AMI with in stent restenosis 02/2018. Continue ASA, lipitor, metoprolol spoke to Dr. Olmedo from cardiology - ok to continue to hold plavix d/t possible bleeding (6) Chronic renal disease, stage 4, severely decreased glomerular filtration rate (GFR) between 15-29 mL/min/1.73 square meter Current Visit: No Status: Acute Code(s): N18.4 - CHRONIC KIDNEY DISEASE, STAGE 4 (SEVERE) SNOMED Code(s): 380903492 Comment: at baseline (7) Cirrhosis, cryptogenic Current Visit: No Status: Acute Code(s): K74.69 - OTHER CIRRHOSIS OF LIVER SNOMED Code(s): 72758081 Comment: s/p TIPS 02/2018 , under the care of DR. Looney (GI/hepatology from [place]) - suspect this is contributing to his increase ammonia levels - lactulose increased - GI consulted (8) DVT (deep venous thrombosis) Current Visit: No Status: Acute Code(s): I82.409 - ACUTE EMBOLISM AND THOMBOS UNSP DEEP VN UNSP LOWER EXTREMITY SNOMED Code(s): 757403912 Comment: Pt dx with acute non-occlusive R popliteal DVT in 04/2018. IVC filter placed 05/06/18. anticoagulation held d/t bleeding (9) HLD (hyperlipidemia) Current Visit: No Status: Chronic Code(s): E78.5 - HYPERLIPIDEMIA, UNSPECIFIED SNOMED Code(s): 29503205 Comment: A/P Continue Crestor (10) DVT prophylaxis Current Visit: No Status: Acute Code(s): VXA8095 - SNOMED Code(s): 008140130 Comment: -S/P recent IVC placement on 05/06/18 SCD's contraindicated d/t dvt right leg -due to ongoing GI bleed anticoagulants contraindicated (11) Full code status Current Visit: No Status: Acute Code(s): Z78.9 - OTHER SPECIFIED HEALTH STATUS SNOMED Code(s): 793755613 Status and Disposition: inpatient - d/c when able
[2018-07-04] MEDS: RiFAXimin* 550 MG TAB PO SCH (20:40)
[2018-07-05 06:45] LABS: ABS Basophils 0 10^3/ul (0-0.2); ABS Eosinophils 0.1 10^3/ul (0-0.6); ABS Lymphocytes 0.6 10^3/ul (1.0-4.8); ABS Monocytes 0.2 10^3/ul (0-0.8); ABS Nucleated RBC 0 10^3/ul; Eosinophil % 6.3 %; Hematocrit 24 % (42-52); Hemoglobin 8.5 g/dl (14.0-18.0); Lymphocyte % 31.8 %; Mean Corpuscular HGB Conc 35 g/dl (31-36); Mean Corpuscular Hemoglobin 32 pg (27-31); Mean Corpuscular Volume 91 fL (80-94); Mean Platelet Volume 7.4 fL (7.4-10.4); Nucleated Red Blood Cells % 0.2; Platelet Count 136 10^3/ul (150-450); Red Blood Count 2.69 10^6/ul (4.00-5.40); Red Cell Distribution Width 21 % (10.5-15)
[2018-07-05 06:58] LABS: EGFR Non-African American 34.2 (>60)
[2018-07-05] MEDS: Atorvastatin* 80 MG TAB PO SCH (08:58)
[2018-07-05] MEDS: Omeprazole CAP* 20 MG PO SCH ×2 (08:58→20:35)
[2018-07-05] MEDS: Aspirin EC TAB* 81 MG TAB.EC PO SCH (08:58)
[2018-07-05] MEDS: Magnesium Oxide TAB* 400 MG PO SCH (08:59)
[2018-07-05] MEDS: RiFAXimin* 550 MG TAB PO SCH ×2 (09:00→20:35)
[2018-07-05] MEDS: Lactulose* 15 ML UDC PO SCH ×4 (09:00→20:35)
[2018-07-05] MEDS: Metoprolol Succinate XL TAB* 25 MG PO SCH ×2 (09:04→20:36)
[2018-07-05] MEDS: Furosemide TAB* 40 MG PO SCH (09:35)
[2018-07-05] MEDS: Spironolactone TAB* 25 MG PO SCH (09:36)
--- NOTE | 2018-07-05 17:41 | ECHO ---
Patient: DIYA FRANCO [facility] Rec#: [id number] : 1940 Date: 07/05/2018 Age: 78y Height: 180 cm / 70.9 in Weight: 99 kg / 218.2 lbs Sex: M BSA: 2.2 Room#: 421 Admit Date#: 07/03/2018 Type: Inpatient Referring: Jose Miguel Gill MD Reading: Nemo Angela MD [employer] Supervisor: Ave Anderson RN RDCS CC: Franklyn Johnston MD Transthoracic Echocardiogram Indication: Shortness of breath, CAD BP: 102/43 HR: 61 Rhythm: Paced Findings History: CAD with stents 02/2018, SSS, S/P pacemaker, DM, DVT, SALEEM, cryptogenic liver cirrhosis, former smoker Left Ventricle: The left ventricular chamber size is normal. Mild concentric left ventricular hypertrophy is observed. Global left ventricular wall motion and contractility are within normal limits. There is normal left ventricular systolic function. The estimated ejection fraction is 60-65%. There is abnormal ventricular septal wall motion consistent with right ventricular pacemaker. The assessment of diastolic function is non-diagnostic. Left Atrium: The left atrium is mild to moderately dilated. Right Ventricle: The right ventricle is slightly dilated. The right ventricular global systolic function is normal. A pacemaker wire is visualized in the right ventricle. Right Atrium: The right atrium is mild to moderately dilated. A pacemaker wire is visualized in the right atrium. Aortic Valve: The aortic valve is trileaflet. The aortic valve leaflets are mildly thickened. There is aortic annular calcification. There is no evidence of aortic regurgitation. There is mild aortic stenosis. The mean gradient of the aortic valve is 10 mmHg. The peak instantaneous gradient of the aortic valve is 19 mmHg. The aortic valve area, by peak velocities, is calculated at 1.9 cm2. The aortic valve area, by VTI's, is calculated at 1.9 cm2. Mitral Valve: Mild mitral annular calcification present. The mitral valve leaflets are mildly thickened. There is mild mitral regurgitation. There is no evidence of mitral stenosis. Tricuspid Valve: The tricuspid valve leaflets are normal. There is moderate tricuspid regurgitation. There is evidence of mild to moderate pulmonary hypertension. There is no tricuspid stenosis. Pulmonic Valve: The pulmonic valve structure is not well visualized. There is a trace pulmonic regurgitation. There is no pulmonic stenosis. Pericardium: There is no significant pericardial effusion. Aorta: There is no dilatation of the ascending aorta. There is no dilatation of the aortic arch. There is no dilation of the aortic root. Pulmonary Artery: The main pulmonary artery is not well visualized. Venous: The inferior vena cava is dilated. There is less than 50% respiratory change in the inferior vena cava dimension. Summary: There are changes noted when compared to the previous study done on 09/22/2017, is new. TR is moderate instead of mild then. PHTN is mild-moderate instead of mild then. Conclusions The left ventricular chamber size is normal. Mild concentric left ventricular hypertrophy is observed. The estimated ejection fraction is 60-65%. There is abnormal ventricular septal wall motion consistent with right ventricular pacemaker. The assessment of diastolic function is non-diagnostic. The left atrium is mild to moderately dilated. A pacemaker wire is visualized in the right ventricle. A pacemaker wire is visualized in the right atrium. The right atrium is mild to moderately dilated. There is mild aortic stenosis. There is mild mitral regurgitation. There is moderate tricuspid regurgitation. There is evidence of mild to moderate pulmonary hypertension. There is a trace pulmonic regurgitation. Measurements Name Value Normal Range RVIDd (AP) 2D 3.9 cm (0.9 - 2.6) RVDdMajor (2D) 4.3 cm (2.2 - 4.4) RAd ISD 4CH 6 cm (3.4 - 4.9) RA (A4C)W 4.1 cm (2.9 - 4.6) IVSd (2D) 1.2 cm (0.6 - 1) LVPWd (2D) 1.2 cm (0.6 - 1) LVIDd (2D) 4.8 cm (3.6 - 5.4) LVIDs (2D) 2.4 cm - LV FS (2D) 50 % (25 - 45) Aortic Annulus 1.8 cm (1.4 - 2.6) Ao root diameter (2D) 2.9 cm (2.1 - 3.5) Ascending Ao 3 cm (2.1 - 3.4) LA dimension (AP) 2D 5 cm (2.3 - 3.8) LAd ISD 4CH 6.3 cm (2.9 - 5.3) LA ISD 4CH W 3.8 cm (2.5 - 4.5) Name Value Normal Range LA ESV BP (A/L) index 30 ml/m2 - Name Value Normal Range MV E-wave Vmax 1.3 m/sec - MV deceleration time 299 msec - MV A-wave Vmax 1 m/sec - MV E:A ratio 1.3 ratio - LV septal e' Vmax 0.08 m/sec - LV lateral e' Vmax 0.11 m/sec - LV E:e' septal ratio 16.3 ratio - LV E:e' lateral ratio 11.8 ratio - Name Value Normal Range AV Vmax 2.2 m/sec - AV VTI 56.5 cm - AV peak gradient 19 mmHg - AV mean gradient 10 mmHg - LVOT diameter 2 cm - LVOT Vmax 1.3 m/sec - LVOT VTI 33.4 cm - LVOT peak gradient 6 mmHg - LVOT mean gradient 4 mmHg - DOI (VTI) 0.59 ratio - DOI (Vmax) 0.59 ratio - STEPH (continuity Vmax) 1.9 cm2 - STEPH (continuity VTI) 1.9 cm2 - Name Value Normal Range TR Vmax 2.7 m/sec - TR peak gradient 29 mmHg - RAP 15 mmHg - RVSP 44 mmHg - IVC diameter 2.5 cm - Name Value Normal Range PV Vmax 1.2 m/sec -
--- NOTE | 2018-07-05 17:51 | PN ---
Subjective Date of Service: 07/05/18 Interval History: Patient seen today, doing well. able to ambulate to the bathroom with minimal assist. alert. awake and follows command. appetite better today Social History: Unchanged from Admission Past Medical History: Unchanged from Admission Objective Active Medications: Aspirin (Aspirin Ec Tab*) 81 mg PO DAILY [facility] Last Admin: 07/05/18 08:58 Dose: 81 mg Atorvastatin Calcium (Lipitor*) 80 mg PO DAILY [facility] Last Admin: 07/05/18 08:58 Dose: 80 mg Furosemide (Lasix Tab*) 40 mg PO DAILY [facility] Last Admin: 07/05/18 09:35 Dose: Not Given Lactulose (Lactulose*) 30 ml PO QID [facility] Last Admin: 07/05/18 17:24 Dose: 30 ml Magnesium Oxide (Magox 400 Tab*) 400 mg PO DAILY [facility] Last Admin: 07/05/18 08:59 Dose: 400 mg Metoprolol Succinate (Toprol Xl Tab*) 12.5 mg PO BID [facility] Last Admin: 07/05/18 09:04 Dose: Not Given Omeprazole (Prilosec Cap*) 20 mg PO BID [facility] Last Admin: 07/05/18 08:58 Dose: 20 mg Ondansetron HCl (Zofran Inj*) 4 mg IV Q6H PRN PRN Reason: NAUSEA Last Admin: 07/04/18 13:45 Dose: 4 mg Rifaximin (Xifaxan*) 550 mg PO BID [facility] Last Admin: 07/05/18 09:00 Dose: 550 mg Spironolactone (Aldactone Tab*) 50 mg PO DAILY [facility] Last Admin: 07/05/18 09:36 Dose: Not Given Vital Signs - 8 hr 07/05/18 13:30 Temperature 97.2 F Pulse Rate 58 Respiratory 16 Rate Blood Pressure 102/43 (mmHg) O2 Sat by Pulse 98 Oximetry Oxygen Devices in Use Now: None Appearance: awake, alert no acute distress Eyes: No Scleral Icterus, - - EOMI Ears/Nose/Mouth/Throat: NL Teeth, Lips, Gums, Clear Oropharnyx Neck: NL Appearance and Movements; NL JVP, Trachea Midline Respiratory: Symmetrical Chest Expansion and Respiratory Effort, Clear to Auscultation Cardiovascular: NL Sounds; No Murmurs; No JVD, RRR Abdominal: NL Sounds; No Tenderness; No Distention, - - non tender Extremities: No Edema Neurological: Alert and Oriented x 3 Result Diagrams: 07/05/18 06:32 07/05/18 06:32 Microbiology and Other Data: Microbiology 07/04/18 20:00 Stool Occult Blood (SUJEY) - Final Stool Assess/Plan/Problems-Billing Assessment: 78 year old male presented to Ed for weakness and altered mental status suggestive of hepatic encephalopathy and elevated Ammonia - Patient Problems (1) Increased ammonia level Current Visit: Yes Status: Acute Code(s): R79.89 - OTHER SPECIFIED ABNORMAL FINDINGS OF BLOOD CHEMISTRY SNOMED Code(s): 924071297 Comment: - suspect this is contributing to his hepatic encephalopathy - continue lactulose to 30 ml qid - I agree with rifaximin 550 mg BID - repeat ammonia in the AM (2) CAD (coronary artery disease) Current Visit: No Status: Acute Code(s): I25.10 - ATHSCL HEART DISEASE OF [place] CORONARY ARTERY W/O ANG PCTRS SNOMED Code(s): 08306718 Comment: Pt s/p AMI with in stent restenosis 02/2018. Continue ASA, lipitor, metoprolol spoke to Dr. Olmedo from cardiology - ok to continue to hold plavix d/t possible bleeding - Check Echo in am (3) Cirrhosis, cryptogenic Current Visit: No Status: Acute Code(s): K74.69 - OTHER CIRRHOSIS OF LIVER SNOMED Code(s): 24486080 Comment: s/p TIPS 02/2018 , under the care of DR. Looney (GI/hepatology from [place]) - suspect this is contributing to his increase ammonia levels - lactulose increased - Added xifacan 550 mg bid (4) Hepatic encephalopathy Current Visit: No Status: Acute Code(s): K72.90 - HEPATIC FAILURE, UNSPECIFIED WITHOUT COMA SNOMED Code(s): 93250462 Comment: - Ammonia 96 today . - continue the increased dose of Lactulose to 30 ml QID and agree with starting Xifaxan 550mg BID . Status and Disposition: inpatient - d/c when able
[2018-07-06 07:54] LABS: Hematocrit 25 % (42-52); Hemoglobin 8.3 g/dl (14.0-18.0); Mean Corpuscular HGB Conc 34 g/dl (31-36); Mean Corpuscular Hemoglobin 31 pg (27-31); Mean Corpuscular Volume 92 fL (80-94); Mean Platelet Volume 7.6 fL (7.4-10.4); Platelet Count 130 10^3/ul (150-450); Red Blood Count 2.69 10^6/ul (4.00-5.40); Red Cell Distribution Width 21 % (10.5-15); White Blood Count 1.9 10^3/ul (3.5-10.8)
[2018-07-06 08:06] LABS: EGFR Non-African American 34.6 (>60)
[2018-07-06] MEDS: Magnesium Oxide TAB* 400 MG PO SCH (08:43)
[2018-07-06] MEDS: RiFAXimin* 550 MG TAB PO SCH ×2 (08:43→20:20)
[2018-07-06] MEDS: Atorvastatin* 80 MG TAB PO SCH (08:43)
[2018-07-06] MEDS: Aspirin EC TAB* 81 MG TAB.EC PO SCH (08:43)
[2018-07-06] MEDS: Lactulose* 15 ML UDC PO SCH ×4 (08:43→20:20)
[2018-07-06] MEDS: Spironolactone TAB* 25 MG PO SCH (08:43)
[2018-07-06] MEDS: Omeprazole CAP* 20 MG PO SCH ×2 (08:43→20:20)
[2018-07-06] MEDS: Furosemide TAB* 40 MG PO SCH (08:43)
[2018-07-06] MEDS: Metoprolol Succinate XL TAB* 25 MG PO SCH ×2 (08:49→20:20)
[2018-07-06 09:18] LABS: ABS Basophils 0 10^3/ul (0-0.2); ABS Eosinophils 0.1 10^3/ul (0-0.6); ABS Lymphocytes 0.6 10^3/ul (1.0-4.8); ABS Monocytes 0.2 10^3/ul (0-0.8); ABS Neutrophils 0.9 10^3/ul (1.5-7.7); ABS Nucleated RBC 0 10^3/ul; Eosinophil % 7.5 %; Lymphocyte % 33.5 %; Nucleated Red Blood Cells % 0.2
--- NOTE | 2018-07-06 10:21 | PN ---
Subjective Date of Service: 07/06/18 Interval History: Patient seen today, he is doing fairly the same. denies any fever or chills. he is able to ambulate. He is moving his bowel about 3-4 times a day. Remains slightly weak. his labs this morning did shows decrease ANC to 900. ammonia up to 113. Social History: Unchanged from Admission Past Medical History: Unchanged from Admission Objective Active Medications: Aspirin (Aspirin Ec Tab*) 81 mg PO DAILY [facility] Last Admin: 07/06/18 08:43 Dose: 81 mg Atorvastatin Calcium (Lipitor*) 80 mg PO DAILY [facility] Last Admin: 07/06/18 08:43 Dose: 80 mg Furosemide (Lasix Tab*) 40 mg PO DAILY [facility] Last Admin: 07/06/18 08:43 Dose: 40 mg Lactulose (Lactulose*) 30 ml PO QID [facility] Last Admin: 07/06/18 08:43 Dose: 30 ml Magnesium Oxide (Magox 400 Tab*) 400 mg PO DAILY [facility] Last Admin: 07/06/18 08:43 Dose: 400 mg Metoprolol Succinate (Toprol Xl Tab*) 12.5 mg PO BID [facility] Last Admin: 07/06/18 08:49 Dose: Not Given Omeprazole (Prilosec Cap*) 20 mg PO BID [facility] Last Admin: 07/06/18 08:43 Dose: 20 mg Ondansetron HCl (Zofran Inj*) 4 mg IV Q6H PRN PRN Reason: NAUSEA Last Admin: 07/04/18 13:45 Dose: 4 mg Rifaximin (Xifaxan*) 550 mg PO BID [facility] Last Admin: 07/06/18 08:43 Dose: 550 mg Spironolactone (Aldactone Tab*) 50 mg PO DAILY [facility] Last Admin: 07/06/18 08:43 Dose: 50 mg Vital Signs - 8 hr 07/06/18 07/06/18 02:31 08:24 Temperature 97.6 F 97.5 F Pulse Rate 61 60 Respiratory 14 18 Rate Blood Pressure 106/43 98/40 (mmHg) O2 Sat by Pulse 99 97 Oximetry Oxygen Devices in Use Now: None Appearance: Awake, alert. no acute distress Eyes: No Scleral Icterus, - - EOMI Ears/Nose/Mouth/Throat: NL Teeth, Lips, Gums, Mucous Membranes Moist Neck: NL Appearance and Movements; NL JVP, Trachea Midline Respiratory: Symmetrical Chest Expansion and Respiratory Effort, Clear to Auscultation Cardiovascular: NL Sounds; No Murmurs; No JVD, RRR, No Edema Abdominal: NL Sounds; No Tenderness; No Distention, - - umbilical hernia Extremities: No Edema Neurological: Alert and Oriented x 3 Result Diagrams: 07/06/18 07:25 07/06/18 07:25 Microbiology and Other Data: Microbiology 07/04/18 20:00 Stool Occult Blood (SUJEY) - Final Stool Assess/Plan/Problems-Billing Assessment: 78 year old male presented to Ed for weakness and altered mental status suggestive of hepatic encephalopathy and elevated Ammonia - Patient Problems (1) Hepatic encephalopathy Current Visit: No Status: Acute Code(s): K72.90 - HEPATIC FAILURE, UNSPECIFIED WITHOUT COMA SNOMED Code(s): 82281631 Comment: - Ammonia 113 today 07/06/18, I suspect that this is contributing to his hepatic encephalopathy, but past 48 hrs his mentations has not changed regardless of his ammonia level - I will continue his lactulose to 30 ml qid as he is having 3-4 Bowels movement - I agree with rifaximin 550 mg BID - I discussed with Dr. Mir and is aware of the above. He did not recommend any further ammonia level as long as his mentation remains the same. I will try and reassure remington and his with this as well. (2) Cirrhosis, cryptogenic Current Visit: No Status: Acute Code(s): K74.69 - OTHER CIRRHOSIS OF LIVER SNOMED Code(s): 81618956 Comment: - s/p TIPS 02/2018 , under the care of Dr. Looney (GI/hepatology from [place]) - I do suspect this is contributing to his increase ammonia levels - lactulose increased to 30 ml QID and he is having 3-4 BM per day - Added xifacan 550 mg bid (3) Increased ammonia level Current Visit: Yes Status: Acute Code(s): R79.89 - OTHER SPECIFIED ABNORMAL FINDINGS OF BLOOD CHEMISTRY SNOMED Code(s): 623301082 Comment: - suspect this is contributing to his hepatic encephalopathy, but past 48 hrs his mentations has not changed regardless of his ammonia level - continue lactulose to 30 ml qid as he is having 3-4 Bowel movement - I agree with rifaximin 550 mg BID - I discussed with Dr. Mir and is aware of the above. He did not recommend any further ammonia level as long as his mentation remains the same. I will try and reassure remington and his with this as well. (4) Anemia Current Visit: No Status: Acute Code(s): D64.9 - ANEMIA, UNSPECIFIED SNOMED Code(s): 822812681 Comment: - h/h stable past 48 hrs around 8.10/22- will continue to monitor for signs of bleeding - no bright red blood from the rectum or black or tarry stools - spoke to Dr. Olmedo - can continue to hold plavix at this time d/t the bleeding - GI consulted d/t chronic Gi bleeding no procedure required also patient did have Colonoscopy at [place] and he had [id number] polyps romoved. Will defer to outpatient follow up with GI for follow up colonoscopy but none urgently at this [facility] - given his low ANC of 0.9. He does follow up wiht Dr. Guillen, I did call left a message with the plugging machine operator to get me in touch. Awaiting his call back (5) Colonic polyp Current Visit: No Status: Acute Code(s): K63.5 - POLYP OF COLON SNOMED Code(s): 77998428 Comment: - GI consulted d/t chronic Gi bleeding no procedure required also patient did have Colonoscopy at [place] and he had [id number] polyps romoved. Will defer to outpatient follow up with GI for follow up colonoscopy but none urgently at this [facility] (6) DVT (deep venous thrombosis) Current Visit: No Status: Acute Code(s): I82.409 - ACUTE EMBOLISM AND THOMBOS UNSP DEEP VN UNSP LOWER EXTREMITY SNOMED Code(s): 522165701 Comment: Pt dx with acute non-occlusive R popliteal DVT in 04/2018. IVC filter placed 05/06/18. anticoagulation held d/t bleeding (7) History of sick sinus syndrome Current Visit: No Status: Acute Code(s): Z86.79 - PERSONAL HISTORY OF OTHER DISEASES OF THE CIRCULATORY SYSTEM SNOMED Code(s): 064786869991795 Comment: s/p PPM (8) SALEEM (obstructive sleep apnea) Current Visit: No Status: Acute Code(s): G47.33 - OBSTRUCTIVE SLEEP APNEA ( ADULT) (PEDIATRIC) SNOMED Code(s): 38388409 Comment: Continue CPAP-pt has his own equipment (9) HLD (hyperlipidemia) Current Visit: No Status: Chronic Code(s): E78.5 - HYPERLIPIDEMIA, UNSPECIFIED SNOMED Code(s): 35678576 Comment: - Continue Crestor (10) CAD (coronary artery disease) Current Visit: No Status: Acute Code(s): I25.10 - ATHSCL HEART DISEASE OF [place] CORONARY ARTERY W/O ANG PCTRS SNOMED Code(s): 24067118 Comment: - Pt s/p AMI with in stent restenosis 02/2018. Continue ASA, lipitor , metoprolol spoke to Dr. Olmedo from cardiology - ok to continue to hold plavix d/t possible bleeding - Echo 07/05/18 reveal good EF 65%. no changes will continue current therapy Status and Disposition: inpatient - d/c when able
--- NOTE | 2018-07-06 17:08 | PN ---
Progress Note - Progress Note Date of Service: 07/06/18 SOAP: Subjective: []Admission for recurrent bleeding. Had polys removed but thought to bleed from scar when back on plavix. Hospital course complicated by hepatic encephalopathy and delirium. Now on lactulose and rifaximin. Now with neutropenia, ANC 1000 since 07/04/18, recent baseline of 2200. Aspirin (Aspirin Ec Tab*) 81 mg PO DAILY [facility] Last Admin: 07/06/18 08:43 Dose: 81 mg Atorvastatin Calcium (Lipitor*) 80 mg PO DAILY [facility] Last Admin: 07/06/18 08:43 Dose: 80 mg Furosemide (Lasix Tab*) 40 mg PO DAILY [facility] Last Admin: 07/06/18 08:43 Dose: 40 mg Lactulose (Lactulose*) 30 ml PO QID [facility] Last Admin: 07/06/18 15:06 Dose: 30 ml Magnesium Oxide (Magox 400 Tab*) 400 mg PO DAILY [facility] Last Admin: 07/06/18 08:43 Dose: 400 mg Metoprolol Succinate (Toprol Xl Tab*) 12.5 mg PO BID [facility] Last Admin: 07/06/18 08:49 Dose: Not Given Omeprazole (Prilosec Cap*) 20 mg PO BID [facility] Last Admin: 07/06/18 08:43 Dose: 20 mg Ondansetron HCl (Zofran Inj*) 4 mg IV Q6H PRN PRN Reason: NAUSEA Last Admin: 07/04/18 13:45 Dose: 4 mg Rifaximin (Xifaxan*) 550 mg PO BID [facility] Last Admin: 07/06/18 08:43 Dose: 550 mg Spironolactone (Aldactone Tab*) 50 mg PO DAILY [facility] Last Admin: 07/06/18 08:43 Dose: 50 mg Objective: [] Vital Signs Temp Pulse Resp BP Pulse Ox 97.6 F 66 20 100/43 98 07/06/18 12:08 07/06/18 12:08 07/06/18 12:08 07/06/18 12:08 07/06/18 12:08 HEENT w/ pale conjunctiva. CTA RRR S1S2 fluid wave, non tender Assessment: []78 year old with cryogenic liver disease, s/p TIPS c/b hepatic encephalopathy , recurrent GIB on Plavix for recent [place] and stent placement. Seen today for anemia and neutropenia. Ddx for neutropenia is decompensated liver disease, medication effect. Rifaximin is most likely medication given timing of start. Though neutrophils were decreased on admission, metoprolol and Omeprazole can both trigger neutropenia. Plan: []1. No change in medication at this time, will hold Rifaximin for ANC < 500. Check CBC in am. 2. Anemia. Re-check iron and B12, low iron can also contribute to neutropenia. 3. Will follow up in am and plan out patient labs and follow up on discharge.
--- NOTE | 2018-07-07 06:55 | PN ---
Subjective Date of Service: 07/07/18 Interval History: Patient seen, he feels more droggy and slow paced today. His is concerned about him leaving today. Ammonia was ordered this morning up to 180 which explain his flat affect and possible decline in his mentations. no fever or chills. no abdominal pain. decline in his po intake Social History: Unchanged from Admission Past Medical History: Unchanged from Admission Objective Active Medications: Aspirin (Aspirin Ec Tab*) 81 mg PO DAILY [facility] Last Admin: 07/06/18 08:43 Dose: 81 mg Atorvastatin Calcium (Lipitor*) 80 mg PO DAILY [facility] Last Admin: 07/06/18 08:43 Dose: 80 mg Furosemide (Lasix Tab*) 40 mg PO DAILY [facility] Last Admin: 07/06/18 08:43 Dose: 40 mg Lactulose (Lactulose*) 30 ml PO QID [facility] Last Admin: 07/06/18 20:20 Dose: 30 ml Magnesium Oxide (Magox 400 Tab*) 400 mg PO DAILY [facility] Last Admin: 07/06/18 08:43 Dose: 400 mg Metoprolol Succinate (Toprol Xl Tab*) 12.5 mg PO BID [facility] Last Admin: 07/06/18 20:20 Dose: 12.5 mg Omeprazole (Prilosec Cap*) 20 mg PO BID [facility] Last Admin: 07/06/18 20:20 Dose: 20 mg Ondansetron HCl (Zofran Inj*) 4 mg IV Q6H PRN PRN Reason: NAUSEA Last Admin: 07/04/18 13:45 Dose: 4 mg Rifaximin (Xifaxan*) 550 mg PO BID [facility] Last Admin: 07/06/18 20:20 Dose: 550 mg Spironolactone (Aldactone Tab*) 50 mg PO DAILY [facility] Last Admin: 07/06/18 08:43 Dose: 50 mg Vital Signs - 8 hr 07/06/18 07/07/18 23:37 03:29 Temperature 98.0 F 97.5 F Pulse Rate 62 68 Respiratory 18 17 Rate Blood Pressure 110/45 108/44 (mmHg) O2 Sat by Pulse 100 98 Oximetry Oxygen Devices in Use Now: None Appearance: Awake, alert. oriented to place, person time. Flat affect. slow repsonse but when he does he respond appropriately. No hand tremors Eyes: No Scleral Icterus, - - EOMI Ears/Nose/Mouth/Throat: Clear Oropharnyx, Mucous Membranes Moist Neck: NL Appearance and Movements; NL JVP, Trachea Midline Respiratory: Symmetrical Chest Expansion and Respiratory Effort, Clear to Auscultation Cardiovascular: NL Sounds; No Murmurs; No JVD, RRR Abdominal: NL Sounds; No Tenderness; No Distention, - - umbilical hernia Extremities: - - + edema Neurological: Alert and Oriented x 3 Result Diagrams: 07/07/18 07:02 07/07/18 07:02 Microbiology and Other Data: Microbiology 07/04/18 20:00 Stool Occult Blood (SUJEY) - Final Stool Assess/Plan/Problems-Billing Assessment: 78 year old male presented to [facility] for weakness and altered mental status suggestive of hepatic encephalopathy and elevated Ammonia - Patient Problems (1) Hepatic encephalopathy Current Visit: No Status: Acute Code(s): K72.90 - HEPATIC FAILURE, UNSPECIFIED WITHOUT COMA SNOMED Code(s): 23105087 Comment: - Ammonia 180 today 07/08/18! I suspect that this is contributing to his hepatic encephalopathy - I will increase his lactulose to 45 ml qid - I agree with rifaximin 550 mg BID - I discussed with Dr. Mir and is aware of the above. He did recommend to check US of the RUQ to assess his Tips. His was inquiring about benefit risk of reversing his TIPS if we are not able to control his Ammonia level. I did defer that to Dr. Mir when she sees him. (2) Cirrhosis, cryptogenic Current Visit: No Status: Acute Code(s): K74.69 - OTHER CIRRHOSIS OF LIVER SNOMED Code(s): 82127066 Comment: - s/p TIPS 02/2018 , under the care of Dr. Looney (GI/hepatology from [place]) - I do suspect this is contributing to his increase ammonia levels - His ammonia level increased to 180 today associated with some changes in his mentations and activity. I will increase his lactulose 45 ml QID - Added xifacan 550 mg bid (3) Increased ammonia level Current Visit: Yes Status: Acute Code(s): R79.89 - OTHER SPECIFIED ABNORMAL FINDINGS OF BLOOD CHEMISTRY SNOMED Code(s): 709630663 Comment: - s/p TIPS 02/2018 , under the care of Dr. Looney (GI/hepatology from [place]) - I do suspect this is contributing to his increase ammonia levels - His ammonia level increased to 180 today associated with some changes in his mentations and activity. I will increase his lactulose 45 ml QID - Added xifacan 550 mg bid (4) Anemia Current Visit: No Status: Acute Code(s): D64.9 - ANEMIA, UNSPECIFIED SNOMED Code(s): 201586010 Comment: - h/h stable past 72hrs around - will continue to monitor for signs of bleeding - no bright red blood from the rectum or black or tarry stools - spoke to Dr. Olmedo - can continue to hold plavix at this time d/t the bleeding - GI consulted d/t chronic Gi bleeding no procedure required also patient did have Colonoscopy at [facility] and he had about 10-11 polyps romoved. Will defer to outpatient follow up with GI for follow up colonoscopy but none urgently at this [facility] - given his low ANC of 0.9 on 07/06/18! I consulted with Dr. Guillen and I appreciate his input. His ANC today 1800. no changes will be made will follow up routinely (5) Colonic polyp Current Visit: No Status: Acute Code(s): K63.5 - POLYP OF COLON SNOMED Code(s): 83665490 Comment: - GI consulted d/t chronic Gi bleeding no procedure required also patient did have Colonoscopy at [facility] and he had about 10-11 polyps romoved. Will defer to outpatient follow up with GI for follow up colonoscopy but none urgently at this [facility] (6) History of sick sinus syndrome Current Visit: No Status: Acute Code(s): Z86.79 - PERSONAL HISTORY OF OTHER DISEASES OF THE CIRCULATORY SYSTEM SNOMED Code(s): 318893698452330 Comment: s/p PPM (7) SALEEM (obstructive sleep apnea) Current Visit: No Status: Acute Code(s): G47.33 - OBSTRUCTIVE SLEEP APNEA ( ADULT) (PEDIATRIC) SNOMED Code(s): 17423683 Comment: Continue CPAP-pt has his own equipment (8) HLD (hyperlipidemia) Current Visit: No Status: Chronic Code(s): E78.5 - HYPERLIPIDEMIA, UNSPECIFIED SNOMED Code(s): 84951836 Comment: - Continue Crestor (9) CAD (coronary artery disease) Current Visit: No Status: Acute Code(s): I25.10 - ATHSCL HEART DISEASE OF [place] CORONARY ARTERY W/O ANG PCTRS SNOMED Code(s): 22812131 Comment: - Pt s/p AMI with in stent restenosis 02/2018. Continue ASA, lipitor , metoprolol spoke to Dr. Olmedo from cardiology - ok to continue to hold plavix d/t possible bleeding - Echo 07/05/18 reveal good EF 65%. no changes will continue current therapy (10) DVT (deep venous thrombosis) Current Visit: No Status: Acute Code(s): I82.409 - ACUTE EMBOLISM AND THOMBOS UNSP DEEP VN UNSP LOWER EXTREMITY SNOMED Code(s): 862745870 Comment: Pt dx with acute non-occlusive R popliteal DVT in 04/2018. IVC filter placed 05/06/18. anticoagulation held d/t bleeding Status and Disposition: inpatient - d/c when able
[2018-07-07 07:09] LABS: ABS Basophils 0 10^3/ul (0-0.2); ABS Eosinophils 0.1 10^3/ul (0-0.6); ABS Lymphocytes 0.5 10^3/ul (1.0-4.8); ABS Monocytes 0.3 10^3/ul (0-0.8); ABS Neutrophils 1.8 10^3/ul (1.5-7.7); ABS Nucleated RBC 0 10^3/ul; Eosinophil % 3.8 %; Hematocrit 25 % (42-52); Hemoglobin 8.7 g/dl (14.0-18.0); Lymphocyte % 19.8 %; Mean Corpuscular HGB Conc 34 g/dl (31-36); Mean Corpuscular Hemoglobin 31 pg (27-31); Mean Corpuscular Volume 91 fL (80-94); Mean Platelet Volume 7.1 fL (7.4-10.4); Nucleated Red Blood Cells % 0.1; Platelet Count 129 10^3/ul (150-450); Red Blood Count 2.79 10^6/ul (4.00-5.40); Red Cell Distribution Width 21 % (10.5-15); White Blood Count 2.8 10^3/ul (3.5-10.8)
[2018-07-07] MEDS: Lactulose* 15 ML UDC PO SCH ×4 (08:33→20:46)
[2018-07-07] MEDS: RiFAXimin* 550 MG TAB PO SCH ×2 (08:34→20:48)
[2018-07-07] MEDS: Metoprolol Succinate XL TAB* 25 MG PO SCH ×2 (08:34→20:48)
[2018-07-07] MEDS: Atorvastatin* 80 MG TAB PO SCH (08:34)
[2018-07-07] MEDS: Aspirin EC TAB* 81 MG TAB.EC PO SCH (08:35)
[2018-07-07] MEDS: Furosemide TAB* 40 MG PO SCH (08:35)
[2018-07-07] MEDS: Omeprazole CAP* 20 MG PO SCH ×2 (08:35→20:48)
[2018-07-07] MEDS: Magnesium Oxide TAB* 400 MG PO SCH (08:35)
[2018-07-07] MEDS: Spironolactone TAB* 25 MG PO SCH (08:35)
--- NOTE | 2018-07-07 09:43 | PN ---
Progress Note - Progress Note Date of Service: 07/07/18 SOAP: Subjective: []Slow moving today but not much different. is worried about him going home. No more bleeding. Has a runny nose. Is eating fine. No abdominal pain. Aspirin (Aspirin Ec Tab*) 81 mg PO DAILY [facility] Last Admin: 07/07/18 08:35 Dose: 81 mg Atorvastatin Calcium (Lipitor*) 80 mg PO DAILY [facility] Last Admin: 07/07/18 08:34 Dose: 80 mg Furosemide (Lasix Tab*) 40 mg PO DAILY [facility] Last Admin: 07/07/18 08:35 Dose: 40 mg Lactulose (Lactulose*) 30 ml PO QID [facility] Last Admin: 07/07/18 08:33 Dose: 30 ml Magnesium Oxide (Magox 400 Tab*) 400 mg PO DAILY [facility] Last Admin: 07/07/18 08:35 Dose: 400 mg Metoprolol Succinate (Toprol Xl Tab*) 12.5 mg PO BID [facility] Last Admin: 07/07/18 08:34 Dose: 12.5 mg Omeprazole (Prilosec Cap*) 20 mg PO BID [facility] Last Admin: 07/07/18 08:35 Dose: 20 mg Ondansetron HCl (Zofran Inj*) 4 mg IV Q6H PRN PRN Reason: NAUSEA Last Admin: 07/04/18 13:45 Dose: 4 mg Rifaximin (Xifaxan*) 550 mg PO BID [facility] Last Admin: 07/07/18 08:34 Dose: 550 mg Spironolactone (Aldactone Tab*) 50 mg PO DAILY [facility] Last Admin: 07/07/18 08:35 Dose: 50 mg Objective: [] Vital Signs Temp Pulse Resp BP Pulse Ox 98.2 F 65 18 111/47 99 07/07/18 07:31 07/07/18 07:31 07/07/18 08:00 07/07/18 07:31 07/07/18 07:31 HEENT w/ pale conjunctiva. 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 Hospital course c/ b anemia and neutropenia. Ddx for neutropenia is decompensated liver disease, medication effect. Improved today on CBC, c/w liver disease. Plan: []1. Will check ammonia level today per family request. 2. If discharge over weekend, follow up with me on Monday am and will re-check labs 3. 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
[2018-07-07 10:59] LABS: EGFR Non-African American 37.1 (>60)
[2018-07-08 07:15] LABS: ABS Basophils 0 10^3/ul (0-0.2); ABS Eosinophils 0.2 10^3/ul (0-0.6); ABS Lymphocytes 0.7 10^3/ul (1.0-4.8); ABS Monocytes 0.2 10^3/ul (0-0.8); ABS Nucleated RBC 0 10^3/ul; Eosinophil % 7.6 %; Hematocrit 26 % (42-52); Hemoglobin 8.7 g/dl (14.0-18.0); Lymphocyte % 31.5 %; Mean Corpuscular HGB Conc 34 g/dl (31-36); Mean Corpuscular Hemoglobin 31 pg (27-31); Mean Corpuscular Volume 92 fL (80-94); Mean Platelet Volume 7.2 fL (7.4-10.4); Nucleated Red Blood Cells % 0.2; Platelet Count 134 10^3/ul (150-450); Red Blood Count 2.79 10^6/ul (4.00-5.40); Red Cell Distribution Width 21 % (10.5-15); White Blood Count 2.1 10^3/ul (3.5-10.8)
--- NOTE | 2018-07-08 07:24 | PN ---
Progress Note - Progress Note Date of Service: 07/08/18 Note: easily awoken, on CPAP; feels well, but fatigued; decreased appetite, stools darker VS: 97.4, 104/38, 61 nad, alert, oriented x 3 +bs, soft, nt no asterixis Hgb 8.7, 8.7, 8.3, 8.5 US; patent TIPS 78 yo male with 1. encephalopathy.....multifactorial, continue lactulose, xifaxan; TIPS likely contributing to increase ammonia; i do not follow ammonia levels, i follow clinical exam; no asterixis; mild enceph at baseline; will have waxing and waning 2. anemia....stable would recommend dc to home today Isaac Ruiz MD
[2018-07-08 07:31] LABS: EGFR Non-African American 36.4 (>60)
[2018-07-08] MEDS ORDERED: Furosemide TAB* 40 MG PO SCH (09:00)
[2018-07-08] MEDS: Spironolactone TAB* 25 MG PO SCH (09:21)
[2018-07-08] MEDS: Lactulose* 15 ML UDC PO SCH ×2 (09:21→13:40)
[2018-07-08] MEDS: Magnesium Oxide TAB* 400 MG PO SCH (09:22)
[2018-07-08] MEDS: Omeprazole CAP* 20 MG PO SCH (09:22)
[2018-07-08] MEDS: Metoprolol Succinate XL TAB* 25 MG PO SCH (09:23)
[2018-07-08] MEDS: Atorvastatin* 80 MG TAB PO SCH (09:23)
[2018-07-08] MEDS: Aspirin EC TAB* 81 MG TAB.EC PO SCH (09:23)
[2018-07-08] MEDS: RiFAXimin* 550 MG TAB PO SCH (10:09)
[2018-07-08 15:33] VITALS: BP 108/41
--- NOTE | 2018-07-10 10:07 | DS ---
CC: Dr. Edwin Guillen; Dr. Isaac Ruiz; Dr. Olmedo; Dr. Herman Looney, GI at [place]; Dr. Franklyn Johnston * DISCHARGE SUMMARY: DATE OF ADMISSION: 07/03/18 DATE OF DISCHARGE: 07/08/18 FINAL DISCHARGE DIAGNOSES: 1. Cryptogenic cirrhosis. 2. Anemia and leukopenia. 3. Ascites. 4. Coronary artery disease. 5. Hyperlipidemia. 6. Obstructive sleep apnea. 7. Sick sinus syndrome status post pacemaker. HOSPITAL COURSE: The patient presented to [facility] on 07/03/18 for generalized weakness and confusion that was noted by his . He had difficulty getting out of the bathroom. They called the ambulance and brought him to the hospital. On admission, the patient was found to have significant anemia with white count 2.0, hemoglobin 8, hematocrit 23 with platelets 139,000 and his ammonia level was found to be 80. The patient was admitted. His lactulose was increased to 30 mL four times a day and added Xifaxan. I did see the patient on the first encounter on 07/05/18. History and available medical record was reviewed and he was monitored on a daily basis and ammonia continued to rise and it increased up to 120 despite his lactulose. I did consult with GI , Dr. Ruiz and with the patient's GI group at [place]. I spoke with Dr. Valencia covering for his track mechanic, Dr. Looney, reviewed his hospital course for the past hospitalizations including this one and it was recommended to discontinue monitoring the ammonia as it is not useful, which I relayed the information to the patient's and himself and to focus on and target our treatment based on his mental status. Reluctantly, the family did concur and agreed with the plan and I encouraged the patient to optimize his diet, activity and we consulted also with Dr. Guillen regarding his anemia and neutropenia which is presumed to be secondary to his liver. Initially, it was thought due to medication and that seems to subside as his neutropenia improved on its own without any altering of his medication. Therefore, the patient was maintained on a daily basis, it was monitored. CBC was obtained daily. Chemistry obtained daily and his ammonia initially was monitored and his lactulose finally increased to 45 cc four times a day and on 07/08/18, I had a long discussion with the patient and family. I did offer him support and encouragement that given his TIPS procedures, he has not had any further paracentesis since the procedure and by monitoring the ammonia level on a daily basis, it mainly is affecting his morale, his personality and his perception of his disease as he is focusing on the numbers rising and relating that he is declining. Nonetheless, I encouraged him to discuss this with his track mechanic, Dr. Looney and whether or not they did wish to reverse his TIPS. That was brought up to my attention by his . I did discourage him about it, but nonetheless I deferred that question to his track mechanic and on 07/08/18, he felt better, he ambulated, tolerating diet and he wished to be discharged and was more optimistic and realistic and encouraged with my plan. Therefore, I discharged him on 07/08/18 with the same regimen as per home with the exception of his lactulose, I cut it back from 45 four times a day to 30 four times a day and I told him to possibly taper down further unless his mentation is declined. They did wish to proceed with the Xifaxan prescription which I provided. PHYSICAL EXAMINATION: On 07/08/18, temperature 97.2, pulse 61, respiratory rate 16, satting 98%, blood pressure 108/41. Generally, he is awake, he was mentating. He actually ambulates with minimal assist, tolerating diet. He was laughing at the jokes, conversing well, remembering where he is. Able to give some accurate date to some historical data. Head and Neck: Normocephalic. Anicteric sclerae. Lungs: Clear to auscultation bilateral. Abdomen: Positive bowel sounds. Some ascites and ventral hernia, nontender. Extremities: He does have edema on the right side +2, +1 on the left. INPATIENT DIAGNOSTIC STUDIES: It would be summarized with leukopenia with white count hovering between 1.9 and 2.8, anemia with hematocrit hovering between 28 on admission and 26 on discharge, no transfusion, platelets between 148,000 and 134,000 and at one time, his absolute neutrophil dropped down to 900 and average between 1800 and 1000. INR is 1.08. His chemistry revealed sodium between 137 and 138, potassium within normal 4.2, admitted with a BUN of 35 and discharged with BUN of 23, creatinine from 2.1 down to 1.8 and calcium 8.4. Ammonia admitted with 80, he was discharged with ammonia of 180 on 07/07/18 and we stopped following it. B12 of 1450. Brain CT on 07/03/18, no intracranial mass or hemorrhage. A 2D echo on 07/05/18 , ejection fraction of 60% to 65%, diastolic dysfunction, moderate pulmonary hypertension. Abdominal ultrasound shows a patent TIPS stent, large volume ascites. DISCHARGE MEDICATIONS: The patient was prescribed: 1. Ferrous sulfate 325 twice a day. 2. Lasix was decreased from 40 mg down to 20 mg as my discussion and recommendation with Dr. Valencia. 3. Lactulose, he was discharged with 30 cc four times a day with further recommendation to taper down pending his mental status or increase pending his mental status. 4. Rifaximin 550 twice a day. The patient to continue the remaining of his medications at home as follows: 1. Rosuvastatin 40 mg every day. 2. Aspirin 81 mg daily. 3. Spironolactone 50 mg daily. 4. Metoprolol 12.5 twice a day. 5. Pantoprazole 40 b.i.d. 6. Magnesium oxide 400 mg daily. 7. Lasix is down to 20 mg. DISCHARGE INSTRUCTIONS: The patient to follow up with his PCP, Dr. Franklyn Johnston in 1 to 2 weeks. The patient to follow up with [facility] at [place] in 1 month. Follow up with Dr. Isaac Ruiz within 1 month and call to schedule followup appointment with Dr. Olmedo and follow up with Dr. Edwin Guillen. [id number]/[facility] #: [id number] [facility]
== END 2018-07-08 16:50 | disposition home or self-care (01) | DRG 433 ==
LOC: ED 09:32 → MED 13:25
PROVIDERS: ADMIT Internal Medicine; ATTEND Internal Medicine
DX: K74.69 Other cirrhosis of liver (principal); R18.8 Other ascites; K72.90 Hepatic failure, unspecified without coma; D64.9 Anemia, unspecified; I25.10 Atherosclerotic heart disease of native coronary artery without angina pectoris; I11.9 Hypertensive heart disease without heart failure; E78.5 Hyperlipidemia, unspecified; G47.33 Obstructive sleep apnea (adult) (pediatric); I49.5 Sick sinus syndrome; D47.2 Monoclonal gammopathy; Z95.0 Presence of cardiac pacemaker; Z95.5 Presence of coronary angioplasty implant and graft; Z86.718 Personal history of other venous thrombosis and embolism; Z79.02 Long term (current) use of antithrombotics/antiplatelets; Z79.82 Long term (current) use of aspirin; Z79.899 Other long term (current) drug therapy; Z91.048 Other nonmedicinal substance allergy status; Z80.9 Family history of malignant neoplasm, unspecified; I25.2 Old myocardial infarction; D70.9 Neutropenia, unspecified
CPT/HCPCS: 36415; 70450; 71045; 76705; 80048; 80053; 80076; 82140; 82270; 82550; 82607; 82728; 83540; 83550; 83605; 83735; 84100; 84443; 84484; 85014; 85018; 85025; 85060; 85610; 93005; 93306; 99232; 99284; A9270-GY; J2405

== ENCOUNTER 2018-07-15 19:46 | Inpatient (IN) | payer MEDICARE ==
--- OUTSIDE RECORDS SUMMARY | 2018-07-15 20:01 | XMS REPORT | Continuity of Care Document ---
:1940 External Reference #:[id number] Author Name Patricia Hull Care Team Providers Name Role Phone Franklyn Johnston MD Primary Care Physician Unavailable Payers Type Date Identification Numbers Payment Provider Subscriber Effective: Policy Number: [id number] Medicare Blue o Diya Jj Abdprisca 2016 Group Number: [id number] [address] [address] PayID: [id number] SWATI Marcus [address] Effective: 2013 Policy Number: [id number] Medicare Blue o Diya Ashford Expires: 2014 Group Number: [id number] [address] [address] Group Name: Expires 14 SWATI Marcus [address] PayID: [id number] Effective: 2010 Policy Number: [id number] [facility] Diya Jj Dejon Expires: 2013 PayID: [id number] [address] [address] SWATI Marcus [address] Effective: 2006 Policy Number: [id number] Medicare Diya Montgomerymanoj Expires: 2013 PayID: [id number] [address] [place] [address] Advance Directives Description No Information Available Problems [...] heart disease of Angelic Olmedo M.D. 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 Active Onset: 06/30/2018 Epigastric pain Luis Manuel Edwards MD Active Onset: 06/30/2018 Nausea Luis Manuel Edwards MD Active Onset: 07/04/2018 Altered mental status Cece Barajas NP Active Onset: 07/04/2018 Other specified abnormal findings Cece Barajas NP Active of blood chemistry Onset: 07/04/2018 Deep venous thrombosis of lower Cece Barajas NP Active extremity Onset: 07/08/2018 Patient post percutaneous Jose Miguel Gill M.D. Active transluminal coronary angioplasty Onset: 07/08/2018 Neutropenia Jose Miguel Gill M.D. 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 Active heart disease Family History Date Family Member(s) Problem(s) Comments [...] Use Denies Drug Use Smoking Status Reviewed: 07/13/18 Patient is a former smoked for 25yrs, [...] by Angelic Tartrate 2018 s mouth twice [place], a day Clarita Pantoprazole / Active Tablets 40mg 1 by mouth Unknown Sodium 0000 DR twice one time per day Spironolactone / Active Tablets 50mg 1 by mouth Unknown 0000 every day Furosemide / Active Tablets 20mg 1 by mouth Unknown 0000 every day Lactulose / Active Solution 20GM/30ML 30 ml 4x Unknown 0000 daily Xifaxan / Active Tablets 550mg 1 by mouth Unknown 0000 twice a day Magnesium Oxide / Active Capsules 400mg 1 by mouth Unknown 0000 twice a day Ferrousul / Active Tablets 325(65Fe) 1 tab by Unknown 0000 mg mouth every other day. Cpap / Active Device for use Unknown 0000 while sleeping Isosorbide 02/27/ Hx Tablets 30mg 30tab Take 08/01 I20.9 Yves S. Mononitrate ER 2018 - ER 24HR s tablet by DO Rajesh 04/06/ mouth every FACC 2017 Atorvastatin 09/29/ Hx Tablets 40mg 90tab 1 by mouth Angelic Calcium 2018 - s every day [place], 01/10/ M.D. 2017 Brilinta 09/29/ Hx Tablets 90mg 180ta 1 tab by Angelic 2018 - bs mouth twice [place], 11/06/ day M.D. 2017 Hydrocodone 09/16/ Hx Tablets 5-300mg 14tab 1 tab by Jamilah Mittalrate/Aceta 2017 s mouth every B. minophen 4 hours as [place], needed pain [employer] Hydrocodone 09/16/ Hx Tablets 5-300mg 14tab 1 tab by Jamilah Parrishartrate/Aceta 2017 s mouth every B. minophen 4 hours as [place], needed pain [employer] Zantac 03/01/ Hx Tablets 300mg 90tab 1 [...] daily Unknown Lo-Dose 0000 - 2017 Losartan 00/ Hx Tablets 100mg 1 by mouth Unknown Potassium 0000 every day Nitroglycerin 00/ Hx Tablets 0.4mg 30tab 1 sl as Herman 0000 - Sub s needed Elan Moreno, 07/12/ angina M.D. 2017 Lasix 00/ Hx Tablets 40mg 1 by mouth Unknown 0000 - twice per 2017 Aldactone 00/ Hx Tablets 50mg 1 by mouth Unknown 0000 - daily 2016 Midodrine HCL / Hx Tablets 5mg 1 po tid Sylvia 0000 - MD Franklyn 2016 Spironolactone / Hx Tablets 50mg 1 tablet po Unknown 0000 - daily ( medication 2018 change since [address] Ward) Plavix / Hx Tablets 75mg 90tab 1 by mouth I25.119 Angelic 0000 - s every day Shara 12/07/ M.DLow 2017 Prednisone /00/ Hx Tablets Unknown 0000 - 2017 Clopidogrel /00/ Hx Tablets 75mg 1 by mouth Unknown Bisulfate 0000 - one time 07/12/ per day 2017 Acetaminophen / Hx Tablets 325mg 2 tablets Unknown 0000 - by mouth 07/12/ every 6 2018 hours as needed for pain/fever Melatonin / Hx Tablets 3mg 1 by mouth Unknown 0000 - 1 to 2 hours 2018 before bed as needed Medications Administered in Office Medication Date Status Form Strength Qnty SIG Indications Ordering Provider Inj, Administered Injection Yves S. Regadenoson, 018 Mena, DO 0.1 MG FACC Technetium TC Administered Injection Yves S. 99M 018 Mena, DO Tetrofosmin, FACC Per Unit Dose Up To 40 Millicuries Influenza,Unsp Administered Injection Unknown ecified 017 Immunizations CPT Code Status Date Vaccine Lot # [id number] Given 05/14/2014 Influenza Virus 3Yrs & Over Vital Signs Date Vital Result Comment 07/13/2018 3:29pm Height 71 inches 5'11" Weight 208.00 lb Heart Rate 62 /min reg BP Systolic Sitting 120 mmHg LA reg cuff BP Diastolic Sitting 75 mmHg LA reg cuff Respiratory Rate 18 /min BMI (Body Mass Index) 29.0 kg/m2 04/06/2018 8:56am Height 71 inches 5'11" Weight [...] H/L Range Note CBC No Diff 06/28/2018 [facility] White Blood 3.0 10^3/uL Low 3.5-10.[address] [place] [address] [phone] Red Blood Count 3.08 10^6/uL Low 4.00-5.40 [...] fL Low 7.4-10.4 CBC Auto Diff 06/03/2018 [facility] White Blood 3.7 10^3/uL N 3.5-10.[address] [place] [address] [phone] Red Blood Count 1.67 10^6/uL Low 4.00-5.40 [...] Red Blood Cells % 0.2 Inr/Protime 06/03/2018 [facility] Inr 0.91 N 0.77-1.[address] [place] [address] [phone] Laboratory test 06/03/2018 [facility] Partial 28.8 seconds N 26.0-36.[address] [place] [address] [phone] Comp Metabolic 06/03/2018 [facility] Sodium 136 mmol/L N 135- [address] [place] [address] [phone] Potassium 4.4 mmol/L N 3.5-5.0 Chloride 111 [...] Egfr 39.1 >60 3 Cell Morphology 06/03/2018 [facility] Polychromasia [address]+ [address] [place] [address] [phone] Anisocytosis 3+ Elliptocyte 1+ Type & Screen 06/03/2018 [facility] Patient Blood Type A Positive [address] [place] [address] [phone] Antibody Screen NEGATIVE Laboratory test 06/03/2018 [facility] Packed Cells SEE RESULTS [address] BELO <[place] [address] NOTE> [phone] Hemoglobin/Hemat 05/02/2018 [facility] Hemoglobin 7.3 g/dL Low 14.0-[address]0 [place], [place] [id number] [phone] Hematocrit 22 % Low 42-52 Laboratory test 04/20/2018 [facility] Surgical Interface SEE RESULT [address] [place] [address] [phone] Lipid Profile 03/12/2018 [facility] Triglycerides 77 mg/dL 6 (Trig/Chol/HDL) [address] [place], [place] [address] [phone] Cholesterol 142 mg/dL 7 HDL Cholesterol 51.2 mg/dL 8 LDL Cholesterol 75 mg/dL 9 Laboratory test 01/05/2018 [facility] LDL Cholesterol 111 mg/dL [address] [place] [address] [phone] Laboratory test 12/29/2017 [facility] Creatine 16 U/L N 10- 223 finding 101 [facility] Kinase(CK) [place] [address] [phone] Erythrocyte Sed Rate 97 mm/Hr High 0-40 Comp Metabolic Panel 12/29/2017 [facility] Sodium 133 mmol/L Low 139-[address] [place] [address] [phone] Potassium 4.1 mmol/L N 3.5-5.0 Chloride 103 [...] Egfr 40.7 >60 11 Stool Occult 10/13/2017 [facility] Stool Occult SEE RESULT 12 Blood Diag 101 [facility] Blood, [place] [address] [phone] CBC Auto Diff 10/04/2017 [facility] White Blood 4.1 10^3/uL N 3.5-10. [address] Count 8 [place] [address] [phone] Red Blood Count 3.60 10^6/uL Low 4.0-5.4 [...] Blood Cells % 0 Basic Metabolic 10/04/2017 [facility] Sodium 132 mmol/L Low 133-145 Panel [address] [place] [address] [phone] Potassium 4.6 mmol/L N 3.5-5.0 Chloride 104 mmol/L N 101-111 Co2 Carbon Dioxide 23 mmol/L N 22-32 Anion Gap 5 mmol/L N 2-11 Glucose 124 mg/dL High 70-100 Blood Urea Nitrogen 40 mg/dL High 6-24 Creatinine 2.01 mg/dL High 0.67-1.17 BUN/Creatinine Ratio 19.9 N 8-20 Calcium 7.8 mg/dL Low 8.6-10.3 Egfr Non- 32.5 >60 Egfr 41.9 >60 13 Basic Metabolic 10/02/2017 [facility] Sodium 131 mmol/L Low 133-145 Panel [address] [place] [address] [phone] Potassium 4.6 mmol/L N 3.5-5.0 Chloride 103 mmol/L N 101-111 Co2 Carbon Dioxide 23 mmol/L N 22-32 Anion Gap 5 mmol/L N 2-11 Glucose 128 mg/dL High 70-100 Blood Urea Nitrogen 39 mg/dL High 6-24 Creatinine 2.00 mg/dL High 0.67-1.17 BUN/Creatinine Ratio 19.5 N 8-20 Calcium 8.1 mg/dL Low 8.6-10.3 Egfr Non- 32.7 >60 Egfr 42.1 >60 14 Laboratory test 09/26/2017 [facility] B-Type Natriuretic 54 pg/ mL [address] [place] [address] [phone] Troponin-I (TnI) 0.08 ng/mL High <0.04 16 Basic Metabolic 09/26/2017 [facility] Sodium 132 mmol/L Low 133-[address] [place], [place] [address] [phone] Potassium 5.5 mmol/L High 3.5-5.0 Chloride 103 mmol/L N 101-111 Co2 Carbon Dioxide 25 mmol/L N 22-32 Anion Gap 4 mmol/L N 2-11 Glucose 183 mg/dL High 70-100 Blood Urea Nitrogen 36 mg/dL High 6-24 Creatinine 1.86 mg/dL High 0.67-1.17 BUN/Creatinine Ratio 19.4 N 8-20 Calcium 8.3 mg/dL Low 8.6-10.3 Egfr Non- 35.6 >60 Egfr 45.8 >60 17 HIV 1/2 Ag & 07/12/2017 [facility] HIV-1/-2 Screen, Negative Negative 18 AB Eval [address] [place] [address] [phone] Laboratory 07/12/2017 [facility] Miscellaneous See Comment 19 test finding [address] [place] [address] [phone] Hepatitis E IgM Antibody Negative Negative 20 Laboratory test 07/12/2017 [facility] Hepatitis E Negative Negative [address] [place] [address] [phone] Laboratory test 07/12/2017 [facility] Hepatitis E Negative Negative [address] [place] [place] [address] [phone] Laboratory test 07/12/2017 [facility] Hepatitis E Negative Negative [address] [place] [place] [address] [phone] Laboratory test 07/12/2017 [facility] Hepatitis E Negative Negative [address] [place] [place] [address] [phone] Laboratory test 07/12/2017 [facility] Hepatitis E Negative Negative [address] [place] [place] [address] [phone] Laboratory test 07/12/2017 [facility] Hepatitis E Negative Negative [address] [place] [place] [address] [phone] Laboratory test 07/12/2017 [facility] Hepatitis E Negative Negative [address] [place] [place] [address] [phone] Laboratory test 07/12/2017 [facility] Hepatitis E Negative Negative [address] [place] [place] [address] [phone] Laboratory test 07/12/2017 [facility] Hepatitis E Negative Negative [address] [place] [place] [address] [phone] Laboratory test 07/12/2017 [facility] Hepatitis E Negative Negative [address] [place] [place] [address] [phone] Laboratory test 07/12/2017 [facility] Hepatitis E Negative Negative [address] [place] [place] [address] [phone] Laboratory test 07/12/2017 [facility] Hepatitis E Negative Negative [address] [place] [place] [address] [phone] Laboratory test 07/12/2017 [facility] Hepatitis E Negative Negative [address] [place] [place] [address] [phone] Laboratory test 07/12/2017 [facility] Hepatitis E Negative Negative [address] [place] [place] [address] [phone] Laboratory test 07/12/2017 [facility] Hepatitis E Negative Negative [address] [place] [place] [address] [phone] Laboratory test 07/12/2017 [facility] Hepatitis E Negative Negative [address] [place] [address] [phone] Hepatitis E IgG Antibody Negative Negative 37 Laboratory test 12/02/2016 [facility] Cytology Non-Drier Transfer Car Operator SEE RESULT [address] [place] [address] [phone] Laboratory test 12/02/2016 [facility] Surgical Pathology SEE RESULT [address] [place] [address] [phone] Leukemia/Lymphom 12/02/2016 [facility] Path Interpretation TNP N a Flow [address] 2-8 [place] [address] [phone] Path Interpret > 16 Marker TNP N Path Interpret 9-15 Marker (SEE NOTE) N 40 B-Cell Lymphoma 12/02/2016 [facility] FBLP Specimen Bone Marrow N Fish [address] [place], [place] [address] [phone] FBLP Source Right PIC N FBLP Reason [...] See Comment N 48 Plasma Cell 12/02/2016 [facility] Plasma Cell Abnormal N Profliferative [address] [place] [address] Summary [phone] Plasma Cell Prolif Specimen Bone Marrow N [...] See Comment N 56 Laboratory test 11/04/2016 [facility] Surgical SEE RESULT [address] [place] [address] [phone] Laboratory test 11/04/2016 [facility] Ach Receptor 0.00 nmol/L N <=0.02 [address] [place] [address] [phone] Comp Metabolic 11/04/2016 [facility] Sodium 134 mmol/L N 133- [address] [place] [address] [phone] Potassium 4.4 mmol/L N 3.5-5.0 Chloride 102 [...] N >60 59 CBC Auto Diff 11/04/2016 [facility] White Blood 5.0 10^3/uL N 3.5-10.[address] [place] [address] [phone] Red Blood Count 4.88 10^6/uL N 4.0-5.4 [...] Cells % 0 N Laboratory test 09/27/2016 [facility] Cytology Non-Drier Transfer Car Operator SEE RESULT [address] [place] [address] [phone] Laboratory test 09/27/2016 [facility] Surgical SEE RESULT [address] [place] [address] [phone] Body Fluid C&S 05/28/2014 [facility] Body Fluid Cult (SEE NOTE) [address] [place] [address] [phone] Laboratory test 05/28/2014 [facility] Fluid Crystals None Seen N [address] [place] [address] [phone] 1 GENERAL ILLNESS 2 Critical Result HGB:5.4 Called to and read back by: [id number] at: 06/03/2018 20:30:56 by:[id number] 3 Because ethnic data is not always [...] <15 (or dialysis) 4 SEE RESULTS BELOW [id number] ON PC TRANSFUSED 06/05/18 1714 [id number] AN PC TRANSFUSED 06/04/18 0537 [id number] OP PC TRANSFUSED 06/04/18 0931 [id number] AP PC TRANSFUSED 06/04/18 0035 [id number] AP PC TRANSFUSED 06/03/182112 5 SEE RESULT BELOW Name: DEJONDIYA Jj : [address]: Maryjo Arriaga MD Acct: [id number] Unit: [id number] AGE: 78 Location: ICU [id number] Re04/20/18 Dis: 04/22/18 SEX: M Status: DIS IN SPEC: [id number] BRAD: 04/20/18-[address] [facility] [address]: Cristina Harmon MD REQ: [id number] RECD: 04/20/18152 STATUS: TUNDE SALINAS DR: Luis Manuel Edwards [...] by and Reported on: Favian Templeton MD 9053 END OF REPORT DEPARTMENT OF PATHOLOGY, [address] [place] [address] Favian Templeton M.D. Director [facility] # [id number] Desirable: <150 Borderline High: 150-199 High: [...] [address]: Angelic Olmedo MD Acct: [id number] Unit: [id number] AGE: 77 Location: [facility] Re10/13/17 SEX: M Status: REG REF SPEC: [id number] BRAD: 10/13/17-[address] [facility] [address]: Angelic Olmedo MD REQ: [id number] RECD: 10/13/17-1313 STATUS: JOVANI SALINAS DR: Franklyn Johnston MD _ SOURCE: STOOL SPDESC: ORDERED: Occult Bl, Diag Procedure Result Reported Site Stool Occult Blood (1) Final 10/13/17- 1415 ML Stool Occult Blood Positive Collection Date (1) 10/13/17 * ML - Main Lab . END OF REPORT DEPARTMENT OF PATHOLOGY, [address] [place] [address] Favian Templeton M.D. Director [facility] # [id number] 13 Because ethnic data is not always [...] CHF [address] Moreno by [id number] at 1734 on 09/26/17. Results read back [...] HIV-2 DNA/RNA test (FHV2Q). Test Performed by: [facility] [place] [address] 19 Test Result Flag Unit RefValue Strongyloides Ab, IgG, S Negative Negative No detectable levels of IgG antibodies to Strongyloides. Repeat testing in 1-2 weeks if clinically indicated. Test Performed by: [facility] [place] [address] 20 If clinical suspicion persists, submit new specimen for retesting in 1 to 2 weeks. Test Performed by: [facility] [address], [place] [address] 21 If clinical suspicion persists, submit new specimen for retesting in 1 to 2 weeks. Test Performed by: [address] [address] 22 If clinical suspicion persists, submit new specimen for retesting in 1 to 2 weeks. Test Performed by: [address] [address] 23 If clinical suspicion persists, submit new specimen for retesting in 1 to 2 weeks. Test Performed by: [address] [address] 24 If clinical suspicion persists, submit new specimen for retesting in 1 to 2 weeks. Test Performed by: [address] [address] 25 If clinical suspicion persists, submit new specimen for retesting in 1 to 2 weeks. Test Performed by: [address] [address] 26 If clinical suspicion persists, submit new specimen for retesting in 1 to 2 weeks. Test Performed by: [address] [address] 27 If clinical suspicion persists, submit new specimen for retesting in 1 to 2 weeks. Test Performed by: [address] [address] 28 If clinical suspicion persists, submit new specimen for retesting in 1 to 2 weeks. Test Performed by: [address] [address] 29 If clinical suspicion persists, submit new specimen for retesting in 1 to 2 weeks. Test Performed by: [address] [address] 30 If clinical suspicion persists, submit new specimen for retesting in 1 to 2 weeks. Test Performed by: [address] [address] 31 If clinical suspicion persists, submit new specimen for retesting in 1 to 2 weeks. Test Performed by: [address] [address] 32 If clinical suspicion persists, submit new specimen for retesting in 1 to 2 weeks. Test Performed by: [address] [address] 33 If clinical suspicion persists, submit new specimen for retesting in 1 to 2 weeks. Test Performed by: [facility] [place] [address] 34 If clinical suspicion persists, submit new specimen for retesting in 1 to 2 weeks. Test Performed by: [place] [address] 35 If clinical suspicion persists, submit new specimen for retesting in 1 to 2 weeks. Test Performed by: [facility] [place] [address] 36 If clinical suspicion persists, submit new specimen for retesting in 1 to 2 weeks. Test Performed by: [facility] [place] [address] 37 Test Performed by: [facility] [place] [address] 38 SEE RESULT BELOW Name: DIYA ASHFORD : [address]: Timmy Montoya MD Acct: [id number] Unit: [id number] AGE: 76 Location: Re12/02/16 SEX: M Status: REG REF SPEC: [id number] BRAD: 12/02/16-[address] [facility] [address]: Timmy Montoya MD REQ: [id number] RECD: 12/02/16 STATUS: TUNDE SALINAS DR: Isaac [...] performed at Main Lab DEPARTMENT OF PATHOLOGY, [address] [place] [address] Favian Templeton M.D. Director [facility] # [id number] 39 SEE RESULT BELOW Name: DIYA ASHFORD : [address]: Timmy Montoya MD Acct: [id number] Unit: [id number] AGE: 76 Location: Re12/02/16 SEX: M Status: REG REF SPEC: [id number] BRAD: 12/02/[address]: Timmy Montoya MD REQ: [id number] RECD: 12/02/16 STATUS: TUNDE SALINAS DR: Ari Salazar MD _ ORDERED: Decal, LEVEL 4/2, IMMUNO-FIRST, IMMUNO-ADDL/2, SPEC ST NON-ORG/2 Plasma cell disease has been performed at [facility], [place], [place]. The testing reveals: Specimen: Bone marrow. [...] pathologic correlation is recommended. Test Performed by: [facility] [place] [address] CONTINUED ON NEXT PAGE * ML=Testing performed at [facility] DEPARTMENT OF PATHOLOGY, [address] [place] [address] Favian Templeton M.D. Director [facility] # [id number] RUN DATE: 12/14/16 [facility] LAB LIVE PAGE 2 Patient: DIYA ASHFORD [id number] (Continued) ADDENDUM (Continued) Addendum Signed (signature on file) Sunita Landa MD 1043 B-cell lymphoma has been performed at [facility], [place], [place]. The testing reveals: Specimen: Bone marrow. Method: Locus and probes [Strategy;#Nuclei;Class] 3q27(3'BCL6,5'BCL6) [BAP;200;ASR] 8q24(5'MYC,3'MYC) [BAP;200;ASR] 11q13(CCND1-XT),14q32(IGH-XT) [DFISH;500;ASR] 17p13(TP53),17CEN(D17Z1) [COPY#;200;ASR] 18q21(5'MALT1,3'MALT1) [BAP;200;ASR] 18q21(5'BCL2,3'BCL2) [BAP;200;ASR] Probe strategies include: DFISH=dual color, double fusion; BAP=break-apart probe; COPY#=region gain and loss. Result: Interphase FISH is normal for all loci studied. Result Summary: Normal Result Table: Abnormality Name Result %Abn Cutoff (%) 8q24.1(MYC sep) Normal <6.5% -17p13.1(TP53x1,Y60T3g7) Normal <9.5% -17(TP53,D17Z1)x1 Normal <5.5% 18q21(MALT1 sep) [...] performed at Main Lab DEPARTMENT OF PATHOLOGY, [address] [place] [address] Favian Templeton M.D. Director CLIA # [id number] RUN DATE: 12/14/16 [facility] LAB LIVE PAGE 3 Patient: DIYA ASHFORD [id number] (Continued) ADDENDUM (Continued) Additional cytogenetic studies are reported separately. Test Performed by: [address] [address] Addendum Signed (signature on file) Favian Templeton MD 1764 FINAL DIAGNOSIS 1. Bone marrow, right posterior [...] performed at Main Lab DEPARTMENT OF PATHOLOGY, [address] [place] [address] Favian Templeton M.D. Director [facility] # [id number] RUN DATE: 12/14/16 [facility] LAB LIVE PAGE 4 Patient: DIYA ASHFORD [id number] (Continued) SPECIAL STUDIES (Continued) SPECIAL STUDIES Flow cytometry has been performed at [facility], [place], [place]. The testing reveals: FINAL DIAGNOSIS: Specimen Source: Right posterior iliac crest bone marrow Flow cytometry immunophenotypic analysis: Interpretative data: Lambda light chain restricted, CD19 positive, CD10 negative B-cell population detected (4% of WBCs, 19% of gated lymphocytes). Sutton light chain restricted plasma cells, (less than [...] Electronically signed by: Favian Templeton MD 12/05/16 8363 Technical component performed by: [place] [address] Recruitment Coordinator: Jamie Porter II, MD, PhD. CONTINUED ON NEXT PAGE * ML=Testing performed at Main Lab DEPARTMENT OF PATHOLOGY, [address] [place] [address] Favian Templeton M.D. Director CLIA # [id number] RUN DATE: 12/14/16 [facility] LAB LIVE PAGE 5 Patient: DIYA ASHFORD [id number] (Continued) PRE-OPERATIVE DIAGNOSIS (Continued) PRE-OPERATIVE DIAGNOSIS D47.2 [...] at Main Lab DEPARTMENT OF PATHOLOGY, [facility] [place], [place] [address] Favian Templeton M.D. Director [facility] # [id number] RUN DATE: 12/14/16 [facility] LAB LIVE PAGE 6 Patient: DIYA ASHFORD [id number] (Continued) MICROSCOPIC DESCRIPTION (Continued) Signed (signature on file) Favian Templeton MD 1547 END OF REPORT * ML=Testing performed at Main Lab DEPARTMENT OF PATHOLOGY, [facility] [place], [place] [address] Favian Templeton M.D. Director [facility] # [id number] 40 FINAL DIAGNOSIS: Specimen Source: Right posterior iliac crest bone marrow Flow cytometry immunophenotypic analysis: Interpretative data: Lambda light chain restricted, CD19 positive, CD10 negative B-cell population detected (4% of WBCs, 19% of gated lymphocytes). Sutton light chain restricted plasma cells, (less than [...] MD 12/05/16 1452 Technical component performed by: [place] [address] Recruitment Coordinator: Jamie Porter II, MD, PhD. 41 RESULT: Monoclonal gammopathy, Hyperlipidemia, unspecified 42 Locus and probes [Strategy;#Nuclei;Class] 3q27(3'BCL6,5'BCL6) [BAP;200;ASR] 8q24(5'MYC,3'MYC) [BAP;200;ASR] 11q13(CCND1-XT),14q32(IGH-XT) [DFISH;500;ASR] 17p13(TP53),17CEN(D17Z1) [COPY#;200;ASR] 18q21(5'MALT1,3'MALT1) [BAP;200;ASR] 18q21(5'BCL2,3'BCL2) [BAP;200;ASR] Probe strategies include: DFISH=dual color, double fusion; BAP=break-apart probe; COPY#=region gain and loss. 43 RESULT: Interphase FISH is normal for all loci studied. 44 Abnormality Name Result %Abn Cutoff (%) 8q24.1(MYC sep) Normal <6.5% -17p13.1(TP53x1,H60N7g3) Normal <9.5% -17(TP53,D17Z1)x1 Normal <5.5% 18q21(MALT1 sep) [...] Franklyn Pete M.D., Ph.D. Test Performed by: [address] [address] 48 Applicable to Analyte Specific Reagent (ASR) and Laboratory Developed Tests (LDT). This test was developed and its performance characteristics determined by [facility] in a manner consistent with CLIA [...] developed and its performance characteristics determined by [facility] in a manner consistent with CLIA requirements. It has not been cleared or approved by the U.S. Food and Drug Administration. This FISH test does not rule out other chromosome abnormalities. 56 RESULT: Della Bell D.O. Test Performed by: [facility] - [address] [address] 57 SEE RESULT BELOW Name: DIYA ASHFORD : [address]: Ari Salazar MD Acct: [id number] Unit: [id number] AGE: 76 Location: [facility] Re11/04/16 SEX: M Status: REG REF SPEC: [id number] BRAD: 11/04/16-[address] [facility] [address]: Isaac Ruiz MD REQ: [id number] RECD: 11/04/166383 STATUS: TUNDE SALINAS DR: Franklyn Guillen MD [...] END OF REPORT * ML=Testing performed at [facility] DEPARTMENT OF PATHOLOGY, [address] [place] [address] Favian Templeton M.D. Director [facility] # [id number] 58 ADDITIONAL INFORMATION This test was developed and its performance characteristics determined by [facility] in a manner consistent with CLIA requirements. This test has not been cleared or approved by the U.S. Food and Drug Administration. Test Performed by: [address] [address] 59 Because ethnic data is not always [...] [address]: Gonzalo Nunez MD Acct: [id number] Unit: [id number] AGE: 76 Location: [place] [address] Re09/27/16 SEX: M Status: ADM Kiel SPEC: [id number] BRAD: 09/27/16-[address] [facility] [address]: Gonzalo Nunez MD REQ: [id number] RECD: 09/27/16 STATUS: SOUT _ ORDERED: THIN PREP NON G FINAL DIAGNOSIS Peritoneal fluid: -- Negative for malignant cells. -- Mixed lymphoid elements, macrophages and scattered mesothelial elements only. 1. PERITONEAL - PERITONEAL FLUID GROSS DESCRIPTION 35 mls of cloudy yellow/green fluid. Signed (signature on file) Favian Templeton MD 1327 END OF REPORT * ML=Testing performed at Main Lab DEPARTMENT OF PATHOLOGY, [address] [place] [address] Favian Templeton M.D. Director [facility] # [id number] 61 SEE RESULT BELOW Name: DIYA ASHFORD : [address]: Gonzalo Nunez MD Acct: [id number] Unit: [id number] AGE: 76 Location: [facility] [id number] Re09/27/16 Dis: 09/28/16 SEX: M Status: DIS Kiel SPEC: [id number] BRAD: 09/27/16- [facility] DR: Gonzalo Nunez MD REQ: [id number] RECD: 09/27/16 STATUS: SOUT _ ORDERED: TRICHROME [...] and the wall thickness averages 0.1 cm. Sand Analyst sections, one cassette. 2. The specimen is received in formalin labeled, Liver Biopsy, and consists of a 1.5 x 0.1 CONTINUED ON NEXT PAGE * ML=Testing performed at Main Lab DEPARTMENT OF PATHOLOGY, [address] [place] [address] Favian Templeton M.D. Director [facility] # [id number] RUN DATE: 09/29/16 [facility] LAB LIVE PAGE 2 Patient: DIYA ASHFORD [id number] (Continued) GROSS DESCRIPTION (Continued) GROSS DESCRIPTION (Continued) cm patten soft tissue core admixed with scant red-brown blood clot. Entirely submitted, one cassette. Signed (signature on file) Favian Templeton MD 1647 END OF REPORT * ML=Testing performed at Main Lab DEPARTMENT OF PATHOLOGY, [facility] [place] [address] Favian Templeton M.D. Director CLIA # [id number] RUN DATE: 06/01/14 [facility] LAB LIVE PAGE 1 RUN TIME: 814 [facility] [place], [place] [address] Specimen Inquiry Name: DIYA ASHFORD : [address]: Dominic Jensen MD Acct: [id number] Unit: [id number] AGE: 74 [facility] Re05/28/14 SEX: M Status: REG REF SPEC: [id number] BRAD: 05/28/[address]: Dominic Jensen MD REQ: [id number] RECD: 05/28/14 STATUS: COMP _ SOURCE: JOINT FLUI SPDESC:KNEE LEFT ORDERED: KIERRA Moscoso/GS Procedure Result Verified Site Body Fluid Gram Stain Final 05/28/14- 1055 ML 4+ Neutrophils No Organisms Seen BY CENTRIFUGED SMEAR Body Fluid Culture Final 06/01/14- 0815 ML No Growth Day 4 END OF REPORT * ML=Testing performed at Main Lab DEPARTMENT OF PATHOLOGY, [address] [place] [address] Favian Templeton M.D. Director [facility] # [id number] 63 Synovial (Joint) Fluid Procedures Date Code Description Status 06/12/2018 58771 Abdominal Paracentesis W/Imaging Guidance Completed 05/06/2018 60331 Insertion Intravasular Vena Cava Filter,Endovascular Completed Approach 05/05/2018 66858 EKG, Interpretation Only Completed 04/06/2018 35084 EKG Tracing & Interpretation Completed 03/14/2018 62345 Treadmill Interp/Report Only Completed 03/14/2018 96242 Stress Test Supervsn W/Out I/R Completed 03/08/2018 97166 EKG Tracing & Interpretation Completed 02/27/2018 42673 EKG Tracing & Interpretation Completed 02/22/2018 48799 EKG Tracing & Interpretation Completed 02/22/2018 76391 Pace Maker Eval W/Iterative Adjment Dual Lead Completed 02/22/2018 10317 Pace Maker Eval W/Iterative Adjment Dual Lead Completed 12/07/2017 17473 EKG Tracing & Interpretation Completed 11/30/2017 58409 Treadmill Interp/Report Only Completed 11/30/2017 10323 Stress Test Supervsn W/Out I/R Completed 10/10/2017 61477 Stress Test Completed 10/10/2017 77654 Myocardial Perfusion Imaging Tomographic (Spect) Multiple Completed Studies 10/03/2017 20662 EKG Tracing & Interpretation Completed 09/29/2017 61922 ECHO Transthorasic Realtime 2D W Doppler & Color Flow Hosp Completed 09/29/2017 52231 EKG, Interpretation Only Completed 09/28/2017 59933 Revascularization Acute Total/Subtotal Occlusion Completed 09/28/2017 68701 EKG, Interpretation Only Completed 09/28/2017 46367 Interrogation Device Eval In Person W/DR Completed Analysis,Single,Dual,Mul 09/28/2017 82118 Cath PLMT&NJX L Ventriculog Img S&I Completed 09/27/2017 80675 EKG, Interpretation Only Completed 09/25/2017 33812 EKG, Interpretation Only Completed 09/25/2017 40273 Removal With Replacement Dual Lead System Pulse Generator Completed 09/24/2017 90108 Interrogation Device Eval In Person W/DR Completed Analysis,Single,Dual,Mul 09/22/2017 88842 ECHO Transthorasic Realtime 2D W Doppler & Color Flow Hosp Completed 09/22/2017 57341 EKG, Interpretation Only Completed 09/22/2017 39636 EKG, Interpretation Only Completed 02/23/2017 06557 ECHO Transthorasic Realtime 2D W Doppler & Color Flow Hosp Completed 11/04/2016 23443 Catheter Placement Venous Second Order Branch Completed 11/04/2016 02056 Transcatheter Biopsy Completed 11/04/2016 51928 Venography Liver W/Hemodynamic Evaluation Completed 11/04/2016 74924 Transcatheter Biopsy Radiology Completed 11/04/2016 25454 Ultrasound Guidance For Vascular Access Completed 09/27/2016 87323 Laparoscopy Cholecystectomy Completed 09/27/2016 01817 Laparoscopy Cholecystectomy Completed 09/27/2016 78102 Biopsy Liver W/Other Major Procedure Completed 05/28/2014 40339 Rad Exam; Knee, Ap&L Completed 05/28/2014 77058 Rad Exam; Knee, Ap&L Completed 05/28/2014 37959 Rad Exam; Pelvis Completed 02/03/2012 70460 Rad Exam; Foot Comp Completed Encounters Type Date Location Provider Dx Diagnosis Office Visit 07/13/2018 [facility] Angelic Olmedo, 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 unspecified Hospitalists without coma R79.89 Other specified abnormal findings of blood chemistry D70.9 Neutropenia, unspecified K74.69 Other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 liver D64.9 Anemia, unspecified I82.431 Acute embolism and thrombosis of right popliteal vein Z95.0 Presence of cardiac pacemaker Z95.5 Presence of coronary angioplasty implant and graft Office Visit 07/06/2018 [facility] K72.90 Hepatic failure, 8:49a Assoc,agustina Gill M.D. unspecified Hospitalists without coma R79.89 Other specified abnormal findings of blood chemistry D70.9 Neutropenia, unspecified K74.69 Other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 liver D64.9 Anemia, unspecified I82.431 Acute embolism and thrombosis of right popliteal vein G47.33 Obstructive sleep apnea (adult) (pediatric) Z95.0 Presence of cardiac pacemaker Z95.5 Presence of coronary angioplasty implant and graft [facility] failure, 8:49a Assoc,agustina Gill M.D. unspecified Hospitalists without coma R79.89 Other specified abnormal findings of blood chemistry D70.9 Neutropenia, unspecified K74.69 Other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 liver D64.9 Anemia, unspecified Z95.0 Presence of cardiac pacemaker Z95.5 Presence of coronary angioplasty implant and graft Office Visit 07/04/2018 [facility] Cece K72.90 Hepatic failure, 8:41a Assoc,agustina Barajas NP unspecified Hospitalists without coma R79.89 Other specified abnormal findings of blood chemistry D64.9 Anemia, unspecified K74.69 Other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 liver I25.10 Athscl heart disease of [place] coronary artery w/o ang pctrs N18.4 Chronic kidney disease, stage 4 (severe) I82.431 Acute embolism and thrombosis of right popliteal vein Office Visit 06/30/2018 8:11a [facility] Luis Manuel Edwards, R10.13 Epigastric pain Assoc,agustina MEZA Hospitalists K92.2 Gastrointestinal hemorrhage, unspecified R11.0 Nausea Office Visit 06/29/2018 [facility] Maryjohector Arriaga, R07.9 Chest pain, 8:11a Assoc,agustina Otto unspecified Hospitalists R06.02 Shortness of breath K92.2 Gastrointestinal hemorrhage, unspecified E83.42 Hypomagnesemia Office Visit 06/25/2018 9:06a [facility] Gertrudis K76.6 Portal Assoc,agustina Cano D.O. 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 block, complete Gambling Monitor Z95.0 Presence of cardiac pacemaker Z98.61 Coronary angioplasty status K92.2 Gastrointestinal hemorrhage, unspecified Office Visit 06/24/2018 [facility] Gertrudis K92.2 Gastrointestinal 9:05a Assoc,agustina Cano DHailee hemorrhage, Hospitalists unspecified I25.10 Athscl heart disease of [place] coronary artery w/o ang pctrs K72.90 Hepatic failure, unspecified without coma D62 Acute posthemorrhagic anemia N18.9 Chronic kidney disease, unspecified K76.6 Portal hypertension Office Visit 06/23/2018 4:33p [facility] Angelic Olmedo, Z98.61 Coronary Of [facility] M.D. angioplasty status K62.5 Hemorrhage of anus and rectum Office Visit 06/23/2018 [facility] Romel K92.2 Gastrointestinal 9:05a Assoc,agustina Moncada N.P. hemorrhage, Hospitalists unspecified I25.10 Athscl heart disease of [place] coronary artery w/o ang pctrs K72.90 Hepatic failure, unspecified without coma Office Visit 06/16/2018 8:20a [facility] Maryjo Arriaga, K74.69 Other cirrhosis agustina Workman M.D. of liver Hospitalists K51.411 Inflammatory polyps of colon with rectal bleeding Office Visit 06/15/2018 [facility] Maryjo Arriaga, K72.90 Hepatic failure, 8:20a agustina Workman M.D. unspecified Hospitalists without coma K74.69 Other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 liver K51.411 Inflammatory polyps of colon with rectal bleeding N18.4 Chronic kidney disease, stage 4 (severe) D62 Acute posthemorrhagic anemia Office Visit 06/14/2018 [facility] Maryjo Arriaga, K72.90 Hepatic failure, 8:20a agustina Workman M.D. unspecified Hospitalists without coma K74.69 Other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 liver D62 Acute posthemorrhagic anemia K51.411 Inflammatory polyps of colon with rectal bleeding N18.4 Chronic kidney disease, stage 4 (severe) Office Visit 06/13/2018 [facility] Maryjo Arriaga, K72.90 Hepatic failure, 8:19a Assagustina chiang M.D. unspecified Hospitalists without coma K74.69 Other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 liver N18.4 Chronic kidney disease, stage 4 (severe) K51.411 Inflammatory polyps of colon with rectal bleeding Office Visit 06/13/2018 Donte Olmedo, I44.2 Atrioventricular 12:14p Cardiology Of Clarita orantes, complete Gambling Monitor I25.10 Athscl heart disease of [place] coronary artery w/o ang pctrs Z95.0 Presence of cardiac pacemaker Z98.61 Coronary angioplasty status Office Visit 06/12/2018 [facility] Maryjo Arriaga, K72.90 Hepatic failure, 8:19a agustina Workman M.D. unspecified Hospitalists without coma K74.69 Other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 liver N18.4 Chronic kidney disease, stage 4 (severe) K51.411 Inflammatory polyps of colon with rectal bleeding Office Visit 06/11/2018 [facility] Donte Nicholson K72.90 Hepatic failure, 8:18a Assagustina chiang MD unspecified Hospitalists without coma K74.69 Other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 liver N18.9 Chronic kidney disease, unspecified Office Visit 06/10/2018 8:18a [facility] Irma Ruiz K72.90 Hepatic failure, Assocagustina MD unspecified Hospitalists without coma K74.69 Other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 liver N18.4 Chronic kidney disease, stage 4 (severe) D64.9 Anemia, unspecified Office Visit 06/06/2018 8:34a [facility] Luis Manuel Edwards, D64.9 Anemia, Assocagustina MD unspecified Hospitalists K74.69 Other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 liver R18.8 Other ascites K51.411 Inflammatory polyps of colon with rectal bleeding Office Visit 06/05/2018 8:34a [facility] Luis Manuel Edwards, D62 Acute posthemorrhagic Assocagustina MD anemia Hospitalists R18.8 Other ascites I25.10 Athscl heart disease of [place] coronary artery w/o ang pctrs N18.4 Chronic kidney disease, stage 4 (severe) K74.69 Other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 liver Office Visit 06/04/2018 [facility] Donte Nicholson D64.9 Anemia, 8:33a Assagustina chiang MD unspecified Hospitalists K74.69 Other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 liver R18.8 Other ascites K51.411 Inflammatory polyps of colon with rectal bleeding I25.10 Athscl heart disease of [place] coronary artery w/o ang pctrs Office Visit 06/03/2018 8:33a [facility] Irma Ruiz, D62 Acute posthemorrhagic Assocagustina MD anemia Hospitalists I25.10 Athscl heart disease of [place] coronary artery w/o ang pctrs K74.69 Other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 liver N18.4 Chronic kidney disease, stage 4 (severe) K51.411 Inflammatory polyps of colon with rectal bleeding Office Visit 05/07/2018 [facility] Liz K92.2 Gastrointestinal 8:29a Assoc,agustina Aguilar, DO hemorrhage, Hospitalists unspecified D62 Acute posthemorrhagic anemia I82.401 Acute embolism and thombos unsp deep veins of r low extrem K74.69 Other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 liver D47.2 Monoclonal gammopathy N18.9 Chronic kidney disease, unspecified Office Visit 05/06/2018 [facility] Nichelle K92.2 Gastrointestinal 8:28a Assoc,agustina Lagunas, hemorrhage, Hospitalists unspecified I95.0 Idiopathic hypotension N18.9 Chronic kidney disease, unspecified K74.69 Other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 liver G47.33 Obstructive sleep apnea (adult) (pediatric) Office Visit 05/05/2018 [facility] Donte Nicholson K92.2 Gastrointestinal 8:28a Assocagustina MD hemorrhage, Hospitalists unspecified I95.0 Idiopathic hypotension D64.9 Anemia, unspecified K74.69 Other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 liver N18.3 Chronic kidney disease, stage 3 (moderate) D47.2 Monoclonal gammopathy Office Visit 05/04/2018 [facility] Donte Nicholson K92.2 Gastrointestinal 8:27a Assocagustina MD hemorrhage, Hospitalists unspecified K74.69 Other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 liver N18.9 Chronic kidney disease, unspecified D64.9 Anemia, unspecified Office Visit 05/03/2018 [facility] Donte Nicholson K92.2 Gastrointestinal 8:27a Assocagustina MD hemorrhage, Hospitalists unspecified N18.9 Chronic kidney disease, unspecified G47.33 Obstructive sleep apnea (adult) (pediatric) D64.9 Anemia, unspecified K74.69 Other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 liver Office Visit 05/02/2018 8:26a [facility] Romel Anna, K92.1 Melena Assoc, Hospitalists N.P. N18.9 Chronic kidney disease, unspecified G47.33 Obstructive sleep apnea (adult) (pediatric) Office Visit 04/22/2018 [facility] K92.2 Gastrointestinal 7:54a Assoc,pc Joel, PA hemorrhage, Hospitalists unspecified N18.9 Chronic kidney disease, unspecified G47.33 Obstructive sleep apnea (adult) (pediatric) R18.8 Other ascites Office Visit 04/21/2018 [facility] K92.2 Gastrointestinal 7:52a Assoc,pc Joel, PA hemorrhage, Hospitalists unspecified D64.9 Anemia, unspecified N18.9 Chronic kidney disease, unspecified G47.33 Obstructive sleep apnea (adult) (pediatric) Office Visit 04/20/2018 [facility] K92.2 Gastrointestinal 7:51a Assoc,pc Joel, PA hemorrhage, Hospitalists unspecified D64.9 Anemia, unspecified R18.8 Other ascites N18.9 Chronic kidney disease, unspecified E78.5 Hyperlipidemia, unspecified G47.33 Obstructive sleep apnea (adult) (pediatric) Office Visit 04/19/2018 7:50[facility] Maldonado, PA K92.1 Melena Hospitalists N18.9 Chronic kidney disease, unspecified D47.2 Monoclonal gammopathy I25.10 Athscl heart disease of [place] coronary artery w/o ang pctrs Office Visit 04/06/2018 4:20p [facility] Angelic Olmedo, I25.10 Athscl heart Of [facility] Clarita disease of [place] coronary artery w/o ang pctrs Z95.0 Presence of cardiac pacemaker I95.9 Hypotension, unspecified K76.6 Portal hypertension Office Visit 04/06/2018 9:00a Pulmonology And Miriam G47.33 Obstructive sleep Sleep Services Of MD Annmarie apnea (adult) [facility] (pediatric) Office Visit 03/23/2018 4:20p [facility] Angelic Olmedo, I25.119 Athscl heart Of Ronal Otto disease of [place] cor art w unsp ang pctrs Z01.810 Encounter for preprocedural cardiovascular examination Z95.0 Presence of cardiac pacemaker K74.60 Unspecified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 liver Office Visit 03/08/2018 1:30p [facility] Angelic Olmedo, I25.119 Athscl heart Of Ronal M.D. 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 disease of [place] cor art w unsp ang pctrs D64.9 Anemia, unspecified N18.3 Chronic kidney disease, stage 3 (moderate) Z95.0 Presence of cardiac pacemaker K74.60 Unspecified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 liver Office Visit 10/19/2017 [facility] K92.2 Gastrointestinal 2:00p Assoc,pc Karl, [employer] ME[employer] hemorrhage, Hospitalists unspecified D62 Acute posthemorrhagic anemia R06.02 Shortness of breath I25.118 Athscl heart disease of [place] cor art w oth ang pctrs Office Visit 10/18/2017 12:04p [facility] Angelic Olmedo, K27.4 Chronic or unsp Of Ronal M.D. peptic ulcer, site unsp, with hemorrhage I21.4 Non-St elevation (Nstemi) myocardial infarction I25.10 Athscl heart disease of [place] coronary artery w/o ang pctrs Office Visit 10/18/2017 [facility] K92.2 Gastrointestinal 1:59p Assoc,pc Karl, [employer] ME[employer] hemorrhage, Hospitalists unspecified D62 Acute posthemorrhagic anemia R06.02 Shortness of breath I25.118 Athscl heart disease of [place] cor art w [facility] ang pctrs Office Visit 10/17/2017 [facility] Cece K92.2 Gastrointestinal 1:58p Assoc,agustina Barajas NP hemorrhage, Hospitalists unspecified D62 Acute posthemorrhagic anemia I25.118 Athscl heart disease of [place] cor art w [facility] ang pctrs R06.02 Shortness of breath Office Visit 10/16/2017 10:32a [facility] Burak Montague I25.10 Athscl heart Of Ronal Greenfield M.D. disease of [place] coronary artery w/o ang pctrs K92.2 Gastrointestinal hemorrhage, unspecified Office Visit 10/16/2017 [facility] Renetta K92.2 Gastrointestinal 1:57p Assoc,agustina Moseley hemorrhage, Hospitalists DARLENE Cuevas unspecified D62 Acute posthemorrhagic anemia I25.118 Athscl heart disease of [place] cor art w [facility] ang pctrs R06.02 Shortness of breath Office Visit 10/04/2017 1:20p [facility] Patrick Joshua, Z48.1 Encounter for Cardiology Of Clarita FAC, planned Gambling Monitor [facility] postprocedural wound closure I21.4 Non-St elevation (Nstemi) myocardial infarction N18.3 Chronic kidney disease, stage 3 (moderate) D64.9 Anemia, unspecified Office Visit 10/03/2017 10:00a [facility] Angelic Olmedo, Z95.0 Presence of Of Ronal Otto cardiac pacemaker I25.119 Athscl heart disease of [place] cor art w uns ang pctrs K74.60 Unspecified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 liver N18.9 Chronic kidney disease, unspecified D64.9 Anemia, unspecified I21.4 Non-St elevation (Nstemi) myocardial infarction Office Visit 09/29/2017 [facility] Shruti Aden I24.9 Acute ischemic 9:49a Assoc,agustina Downs [employer] heart disease, Hospitalists unspecified R74.8 Abnormal levels of other serum enzymes K74.69 Other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 liver R07.89 Other chest pain Office Visit 09/29/2017 11:18a [facility] Angelic Olmedo, I25.10 Athscl heart Of Gambling Monitor M.D. disease of [place] coronary artery w/o ang pctrs I95.9 Hypotension, unspecified Office Visit 09/28/2017 [facility] Shruti Aden I24.9 Acute ischemic 9:48a Assoc,agustina Downs NP heart disease, Hospitalists unspecified R74.8 Abnormal levels of other serum enzymes K74.69 Other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 liver Office Visit 09/27/2017 2:37p [facility] Angelic Olmedo, I25.10 Athscl heart Of [facility] M.D. disease of [place] coronary artery w/o ang pctrs I95.9 Hypotension, unspecified Office 09/27/2017 [facility] Gastroenterology Margarita Singh MD K76.6 Portal Visit 7:30a hypertension Office 09/27/2017 [facility] Shruti R07.89 Other chest pain Visit 9:24a Assoc,pc Hospitalists Keiko Downs NP R74.8 Abnormal levels of other serum enzymes K74.69 Other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 liver Office Visit 09/27/2017 9:52a [facility] Patrick Joshua, R79.89 Other specified Of [facility] AT [facility], FACC, abnormal FSCAI findings of blood chemistry Office Visit 09/26/2017 9:22a [facility] Margarita Echavarria, R07.89 Other chest Assoc,pc N.P. pain Hospitalists R74.8 Abnormal levels of other serum enzymes K74.69 Other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 liver Office Visit 09/24/2017 3:30p [facility] Yves S. R55 Syncope and Of Gambling Monitor Mena, DO FACC collapse E87.70 Fluid overload, unspecified Z95.0 Presence of cardiac pacemaker Office Visit 09/23/2017 12:32p [facility] Yves S. R55 Syncope and Of Gambling Monitor Mena, DO FACC collapse Z95.0 Presence of cardiac pacemaker Office Visit 09/22/2017 12:34p [facility] Yves S. R55 Syncope and Of Gambling Monitor Mena, DO FACC collapse Z95.0 Presence of cardiac pacemaker Office Visit 09/21/2017 2:30p [facility] Angelic Olmedo, Z95.0 Presence of Of [facility] AT [facility] cardiac pacemaker R06.02 Shortness of breath I25.10 Athscl heart disease of [place] coronary artery w/o ang pctrs Office Visit 08/14/2017 2:40p [facility] Allison Montague R18.8 Other ascites Infectious Clarita Wei Diseases Office Visit 07/10/2017 3:40p [facility] Allison Montague K73.9 Chronic Infectious Clarita Wei hepatitis, Diseases unspecified R18.8 Other ascites Office Visit 03/30/2017 Pulmonology And Miriam Anguiano, G47.33 Obstructive 9:45a Sleep Services Of sleep apnea [facility] (adult) (pediatric) Office Visit 09/27/2016 [facility] Tonoboyemmanuel 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,pc Yareli, [employer]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 Hospitalists liver with ascites G47.33 Obstructive sleep apnea (adult) (pediatric) I10 Essential (primary) hypertension Z90.49 Acquired absence of other specified parts of digestive tract Office Visit 08/10/2016 Surgical Gonzalo Nunez, K80.20 Calculus of 1:30p [facility] Of Ronal MEZA, FACS gallbladder w/o cholecystitis w/o obstruction Office Visit 03/01/2016 Pulmonology And Miriam G47.33 Obstructive sleep 9:45a Sleep Services Of MD Annmarie apnea (adult) [facility] (pediatric) K21.9 Gastro-esophageal reflux disease without esophagitis E66.01 Morbid (severe) obesity due to excess calories Office Visit 07/07/2014 9:15a Orthopedic Dominic Jensen, 724.4 Neuritis Or Services Of Andre Otto Radiculitis Thoracic Or Lumbosacral Unspec Office Visit 06/30/2014 8:45a Pulmonology And Miriam 327.23 Obstructive Sleep Sleep Services Of MD Annmarie Apnea Adult & Gambling Monitor Pediatric 719.46 Pain Joint Lower Leg Office Visit 06/11/2014 Orthopedic Dominic Jensen, 715.16 Osteoarthrosis 9:15a Services Of Clarita Localized Prim Lower C.M.A. Leg Office Visit 05/28/2014 Orthopedic Dominic Jensen 715.16 Osteoarthrosis 8:00a Services Of Clarita Localized Prim Lower C.M.A. Leg Office Visit 03/05/2012 Orthopedic Bryan 845.10 Sprains & Strains 11:15a Services Of Clarita Dee Foot Unspec Site C.M.A. Office Visit 02/10/2012 Orthopedic Bryan 729.5 Pain In Limb 8:15a Services Of Clarita Dee C.M.A. Office Visit 02/03/2012 Orthopedic Bryan 729.5 Pain In Limb 11:30a Services Of Clarita Dee C.M.A. Plan of Treatment Future Appointment(s):08/23/2018 3:20 pm - Angelic Olmedo M.D. at [facility]07/27/2018 9:00 am - Ica Pacer Schedule at [facility]04/08/2019 10:30 am - Miriam Anguiano MD at Pulmonology And Sleep Services Of [facility]07/13/2018 - Angelic Olmedo M.D.I25.10 Atherosclerotic heart disease of [place] coronary artery withFollow up:July to decide on plavix. (with ECG and MD).Z95.0 Presence of cardiac pacemakerFollow up:PO late June or early LuqxghtT27.69 Other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 pbonrK12.5 Polyp of liacoJ51.2 Gastrointestinal hemorrhage, jqdawapxwbjM54.22 Pulmonary hypertension due to left heart diseaseRecommendations:Continue diuretics for now.I36.1 Nonrheumatic tricuspid (valve) insufficiencyComments:Normal heart strength, mild aortic stenosis and mitral regurgitation. Moderate Tricuspid leak.Z86.718 Personal history of other venous thrombosis and embolismComments:I will ask Dr Salazar about plans.
[2018-07-15] MEDS ORDERED: Ondansetron INJ* 2 MG/ML VIAL IV ONE (20:08)
--- NOTE | 2018-07-15 20:10 | ED ---
Abdominal Pain/Male - HPI Summary HPI Summary: 78 year old M presenting to [facility] accompanied by and daughter complains of abdominal pain and vomiting since 20:00 yesterday, worse since one hour ago. The patient rates the pain 2/10 in severity. Symptoms aggravated by nothing. Symptoms alleviated by nothing. Patient reports nausea. He is vomiting dark brown fluid. He reports abdominal distension. He reports decreased bowel movements, despite lactulose. Daughter is in PA school and listened to patient' s bowel sounds and noted hypoactive bowel sounds. Per , patient takes 30cc lactulose x4 per day for encephalopathy and hyperammonemia. Patient had one dose this morning and one dose in afternoon. Patient's last endoscopy was March 2018. Patient was seen in ED on 06/29/18 for epigastric pain, nausea, chest tightness, hands shaking bilaterally, SOB, and dark stools. Patient was admitted to hospitalist, Dr. Aguilar, from this visit. Per ED provider report from 06/29/18: "Patient notes colonoscopy at [place] on 06/19/18 and states that he had 11 polyps removed from his colon. Pt had been transferred from [facility] to [place] because he was a complex case in that he had an AR with stents in 02/2018 requiring anticoagulation after TIPS procedure, yet he was bleeding from large polyps and became encephalopathic and with ascites due to noncirrhotic portal hypertension s/p TIPS procedure 02/2018 , and blood transfusions alone were not enough to maintain his Hb in light of bleeding polyps, so he was transferred to [place] where his anticoagulation could be stopped and the polyps surgically removed with hepatology, cardiology standing by. Patient was discharged 06/20. He was to restart taking Plavix 75 mg daily once, which he had been on previously for 2.5 months, on 06/21. On , patient experienced GI bleed. He states that he was here at [facility] at this time , patient was admitted 06/23 for GI bleed, discharged 06/25. During this time, patient had been given 3 units of blood. He stopped taking Plavix on 06/24, was told to restart Plaivx on 07/02." Pt was admitted to [facility] again 07/03/18-07/08/18 with altered mental status, neutropenia and anemia, and his lactulose, ammonia levels and mental status monitored, with mental status being the marker for his degree of encephalopathy rather than actual ammonia levels. Abd ultrasound showed patent TIPS. Pt's care was discussed with Dr. Looney at [facility] in [place], Dr. Ruiz ([facility]) consulted in [facility], Dr. Guillen (hematology), and Dr. Olmedo (cardiology) also consulted. Pt is currently off all anticoagulants, except aspirin 81mg daily, and is taking iron. Vital signs while in room: HR 84 bpm, BP 122/49 Home Medications Medication Instructions Recorded Confirmed Type Aspirin EC TAB* [Ecotrin EC Low 81 mg PO DAILY 04/19/18 07/03/18 History Dose 81 MG*] Rosuvastatin (NF) [Crestor (NF)] 40 mg PO DAILY 04/19/18 07/03/18 History Metoprolol Succinate XL TAB* 12.5 mg PO BID 06/29/18 07/03/18 History [Toprol XL TAB*] Pantoprazole TAB (NF) [Protonix 40 mg PO BID 06/29/18 07/03/18 History TAB (NF)] Spironolactone TAB* [Aldactone TAB 50 mg PO DAILY 06/29/18 07/03/18 History 25 MG*] Magnesium Oxide TAB* [MagOx 400 400 mg PO DAILY #30 tab 06/30/18 07/03/18 Rx TAB*] Ferrous Sulfate [Iron] 325 mg PO BID 30 Days #60 tablet 07/08/18 Rx Furosemide TAB* [Lasix TAB*] 20 mg PO DAILY 30 Days #30 07/08/18 07/03/18 Rx Lactulose* 30 ml PO QID #1 bottle 07/08/18 Rx RiFAXimin* [Xifaxan*] 550 mg PO BID 30 Days #60 tab 07/08/18 Rx - History of Current Complaint Chief Complaint: EDGeneral Stated Complaint: GENERAL ILLNESS Time Seen by Provider: 07/15/18 20:01 Hx Obtained From: Patient, Family/Tubing Mill Setter - daughter and , Medical Records - ED provider report 06/29/18 and hosp DC summary 07/08/18 Onset/Duration: Lasting Days - 20:00 yesterday, Still Present, Worse Since - This afternoon Timing: Constant Severity Initially: Moderate Severity Currently: Moderate Pain Intensity: 4 Pain Scale Used: 0-10 Numeric Location: Diffuse Radiates: No Character: Dull Aggravating Factor(s): Nothing Alleviating Factor(s): Nothing Associated Signs And Symptoms: Positive: Constipation, Vomiting, Other - nausea , vomiting dark brown fluid, abdominal distension, decreased bowel movements, hypoactive bowel sounds. Negative: Fever, Chest Pain - Allergies/Home Medications Allergies/Adverse Reactions: Allergies Allergy/AdvReac Type Severity Reaction Status Date / Time Adhesive Tape Allergy Unknown Verified 07/15/18 19:53 Reaction Details horse dander Allergy Swelling Verified 07/15/18 19:53 Horse/Equine Containing Allergy Hives Verified 07/15/18 19:53 Products latex Allergy Unknown Verified 07/15/18 19:53 Reaction Details midodrine Allergy Unknown Verified 07/15/18 19:53 Reaction Details HORSE SERUM Allergy Severe Swelling, Uncoded 07/15/18 19:53 hives PMH/Surg Hx/FS Hx/Imm Hx Previously Healthy: No Endocrine/Hematology History: Reports: Hx Anticoagulant Therapy - no ASA only , Hx Anemia, Hx Unexplained Bleeding, Other Endocrine/Hematological Disorders - hx neutropenia Cardiovascular History: Reports: Hx Angina, Hx Coronary Artery Disease, Hx Deep Vein Thrombosis - with filter in place , Hx Hypercholesterolemia, Hx Hypertension, Hx Myocardial Infarction, Hx Pacemaker/ICD - pacemaker Respiratory History: Reports: Hx Sleep Apnea - current CPAP user GI History: Reports: Hx Cirrhosis - nonalcoholic, Hx Gastroesophageal Reflux Disease, Hx Gastrointestinal Bleed - with encephalopathy, hx ascites, Hx Irritable Bowel, Other GI Disorders - brijesh, jessika'y, S/P TIPS at [facility] History: Reports: Other Problems/Disorders - weak bladder s/p bladder cancer, colon polyps Musculoskeletal History: Reports: Other Musculoskeletal History - hammer toes, both feet, had sx. Denies: Hx Rheumatoid Arthritis Sensory History: Reports: Hx Contacts or Glasses Denies: Hx Deafness, Hx Hearing Aid, Hx Hearing Problem, Other Sensory Impairments Opthamlomology History: Reports: Hx Contacts or Glasses Denies: Other Sensory Impairments Neurological History: Denies: Hx Headaches, Hx Seizures, Hx Transient Ischemic Attacks (TIA) Psychiatric History: Denies: Hx Autism, Hx Schizophrenia - Cancer History Cancer Type, Location and Year: bladder cancer Hx Chemotherapy: No - Surgical History Surgery Procedure, Year, and Place: cataract surgery with lens implants bilat eyes. hammer toe repair bilat feet. appendectomy. cholecystectomy. cardiac stents 2018. TIPS. surg for colonic polyps. colonoscopy with polyp removal 2018 Hx Anesthesia Reactions: No - Immunization History Date of Tetanus Vaccine: unk Date of Influenza Vaccine: fall 2017 Infectious Disease History: No Infectious Disease History: Denies: Traveled Outside the [place] in Last 30 Days - Family History Known Family History: Positive: Cardiac Disease Negative: Hypertension, Diabetes - Social History Lives: With Family Alcohol Use: None Alcohol Amount: none since August 2017 when issues started Hx Substance Use: No Substance Use Type: Reports: None Hx Tobacco Use: Yes Smoking Status (MU): Former Smoker Type: Cigarettes Have You Smoked in the Last Year: No Review of Systems Negative: Fever Cardiovascular: Negative Respiratory: Negative Positive: Abdominal Pain, Vomiting, Nausea, Other - abdominal distension, decreased bowel movements, hypoactive bowel sounds Positive: no symptoms reported Musculoskeletal: Negative Skin: Negative Neurological: Negative Psychological: Normal All Other Systems Reviewed And Are Negative: Yes Physical Exam - Summary Physical Exam Summary: Appearance: ill-appearing, moderate pain distress, well-nourished, vomiting dark liquid Skin: Warm, color reflects adequate perfusion, dry Head: Normal Head/Face inspection, atraumatic Eyes: Conjunctiva clear ENT: Normal inspection Neck: Supple, no nodes, no JVD Respiratory: Lungs clear, normal breath sounds, no respiratory distress Cardio: RRR, No murmur, pulses normal, brisk capillary refill Abdomen: Soft, diffusely tender, distended. Patient has an umbilical hernia that is blue, tender, and not reducible Bowel sounds: Hypoactive bowel sounds Musculoskeletal: Strength Intact/ROM intact, no calf tenderness, no edema. Psychological: Normal, oriented x 3, not encephalopathic Neuro: Alert, muscle tone normal, no focal deficit, no tremor or asterixis Triage Information Reviewed: Yes Vital Signs On Initial Exam: Initial Vitals Temp Pulse Resp BP Pulse Ox 97.8 F 84 16 122/49 99 07/15/18 19:47 07/15/18 19:47 07/15/18 19:47 07/15/18 19:47 07/15/18 19:47 Vital Signs Reviewed: Yes Diagnostics - Vital Signs Vital Signs Temp Pulse Resp BP Pulse Ox 07/15/18 19:47 97.8 F 84 16 122/49 99 - Laboratory Result Diagrams: 07/15/18 20:13 07/15/18 20:18 Lab Statement: Any lab studies that have been ordered have been reviewed, and results considered in the medical decision making process. - Radiology CXR Radiology Interpretation Completed By: ED Physician Summary of Radiographic Findings: No active disease. Pending official report. - CT Abd/Pel CT Interpretation Completed By: Radiologist Summary of CT Findings: 1. High grade small bowel obstruction due to a small bowel containing umbilical hernia. No perforation or ischemia. 2. Portal hypertension post TIPS with no current evidence of cirrhosis. 3. Bosniak type I and II renal cysts. No followup indicated. 3. Gastroesophageal reflux without esophagitis. ED physician has reviewed this report. - EKG 2036 Cardiac Rate: NL - 83 BPM Summary of EKG Findings: 100% paced Re-Evaluation - Re-Evaluation First Eval Re-Evaluation Time: 21:06 Comment: Patient is still uncomfortable. He vomitted more. He is unable to keep contrast down. Second Eval Re-Evaluation Time: 22:20 Abdominal Pain Fem Course/Dx - Course Course Of Treatment: Patient's medications were reviewed. Patient's allergies were noted. Bloodwork was remarkable for lactic acid 4.5. CXR showed no active disease. EKG showed 100% paced. In ED course, patient was given Zofran 4mg IV. Pt continued to vomit despite zofran, so CT abd pelvis was done with IV contrast only. CT Abd/Pel showed 1. High grade small bowel obstruction due to a small bowel containing umbilical hernia. No perforation or ischemia. 2. Portal hypertension post TIPS with no current evidence of cirrhosis. 3. Bosniak type I and II renal cysts. No followup indicated. 3. Gastroesophageal reflux without esophagitis. Patient will be signed out to Dr. Tuttle, pending disposition. Dr. Tuttle will consult Dr. Nunez, surgery communications instructor. - Diagnoses Differential Diagnosis/HQI/PQRI: Bowel Obstruction, Constipation, Ischemic Bowel Provider Diagnoses: Intractable vomiting, Abdominal pain, Hyperammonemia, Incarcerated umbilical hernia, Small bowel obstruction Discharge - Sign-Out/Discharge Documenting (check all that apply): Sign-Out Patient Signing out patient TO: Tyshawn Tuttle - Pending disposition 07/15/18 22:30pm - Discharge Plan Referrals: Franklyn Johnston MD [Primary Care Provider] - - Attestation Statements Document Initiated by Scribe: Yes Documenting Scribe: Gavi Paul Provider For Whom Scribe is Documenting (Include Credential): Susanna J Mic Scribe Attestation: IGavi, scribed for Susanna Haile on 07/15/18 at 2239. Scribe Documentation Reviewed: Yes Provider Attestation: The documentation as recorded by the agnesibGavi middleton accurately reflects the service I personally performed and the decisions made by Susanna patel Status of Scribe Document: Viewed
[2018-07-15 20:32] LABS: ABS Basophils 0 10^3/ul (0-0.2); ABS Eosinophils 0 10^3/ul (0-0.6); ABS Lymphocytes 0.5 10^3/ul (1.0-4.8); ABS Monocytes 0.3 10^3/ul (0-0.8); ABS Neutrophils 6.2 10^3/ul (1.5-7.7); ABS Nucleated RBC 0 10^3/ul; Eosinophil % 0.1 %; Hematocrit 31 % (42-52); Hemoglobin 10.3 g/dl (14.0-18.0); Lymphocyte % 7.5 %; Mean Corpuscular HGB Conc 34 g/dl (31-36); Mean Corpuscular Hemoglobin 32 pg (27-31); Mean Corpuscular Volume 94 fL (80-94); Mean Platelet Volume 7.4 fL (7.4-10.4); Nucleated Red Blood Cells % 0; Platelet Count 214 10^3/ul (150-450); Red Blood Count 3.24 10^6/ul (4.00-5.40); Red Cell Distribution Width 21 % (10.5-15)
[2018-07-15 20:40] LABS: INR 0.94 (0.77-1.02)
[2018-07-15 20:44] LABS: Albumin/Globulin Ratio 0.7 (1-3); BUN/Creatinine Ratio 18.4 (8-20); C Reactive Protein 8.4 mg/L (<8.01); Calcium 9.2 mg/dL (8.6-10.3); EGFR Non-African American 35.7 (>60); Globulin 4.4 g/dL (2-4); Magnesium 1.9 mg/dL (1.9-2.7); Potassium 3.6 mmol/L (3.5-5.0); Total Bilirubin 0.9 mg/dL (0.2-1.0); Total Protein 7.4 g/dL (6.4-8.9)
[2018-07-15] MEDS ORDERED: Iodixanol* (CONTRAST) 320 MG/ML 100 ML SDV IV ONE (21:22)
--- NOTE | 2018-07-15 22:36 | ED ---
Progress - Progress Note Progress Note: Patient was signed out from Dr. Haile to Dr. Tuttle upon provider shift change pending disposition. Re-Evaluation - Re-Evaluation First Eval Re-Evaluation Time: 21:06 Comment: Patient is still uncomfortable. He vomitted more. He is unable to keep contrast down. Second Eval Re-Evaluation Time: 22:20 Course/Dx - Course Course Of Treatment: Patient was signed out from Dr. Haile to Dr. Tuttle upon provider shift change pending disposition. At 22:25 we discussed patient care with Dr. Nunez who said he will come see the patient in the ED and reduce the fracture himself. Discussed patient care again with Dr. Nunez at 23:20 and he agreed to take the patient to the operating room to repair his hernia. Patient will be admitted to [facility]. The patient is agreeable with this plan. - Diagnoses Provider Diagnoses: Intractable vomiting, Abdominal pain, Hyperammonemia, Incarcerated umbilical hernia, Small bowel obstruction - Provider Notifications Discussed Care Of Patient With: Gonzalo Nunez Time Discussed With Above Provider: 22:25 Instructed by Provider To: Other - At 22:25 Dr. Nunez said he will come see the patient in the ED and reduce the fracture himself. At 23:20 Dr. Nunez agreed to take the patient to the operating room to repair his hernia. Discharge - Sign-Out/Discharge Documenting (check all that apply): Patient Departure, Receiving Sign-Out Receiving patient FROM: Susanna Haile - Discharge Plan Condition: Stable Disposition: ADMITTED TO [facility] Referrals: Franklyn Johnston MD [Primary Care Provider] - - Billing Disposition and Condition Condition: STABLE Disposition: Admitted to [facility] - Attestation Statements Document Initiated by Shakeel: Yes Documenting Scribe: Sunita Samuels Provider For Whom Shakeel is Documenting (Include Credential): MD Mariano Swainibkane Attestation: Sunita Lal scribed for Tyshawn Tuttle MD on 07/16/18 at 0215. Scribe Documentation Reviewed: Yes Provider Attestation: The documentation as recorded by the Sunita carvajal accurately reflects the service I personally performed and the decisions made by , Tyshawn Tuttle MD Status of Scribe Document: Viewed
[2018-07-15] MEDS ORDERED: Morphine VIAL* 4 MG/ML VIAL (1 ml vial) IV ONE (22:43)
[2018-07-15] MEDS ORDERED: NS 0.9% 1000 ML* 1,000 ML IV ONE (22:44)
[2018-07-16] MEDS ORDERED: Lidocaine 1% INJ* 10 MG/ML 30 ML SDV ONE (00:03)
[2018-07-16] MEDS ORDERED: Bupivacaine 0.5% W/EPI SDV* 30 ML VIAL ONE (00:03)
[2018-07-16] MEDS ORDERED: fentaNYL* 50 MCG/ML 2 ML VIAL (100 MCG VIAL) ONE (00:04)
[2018-07-16] MEDS ORDERED: ceFOXitin 2 GM IVPREMIX* 2 GM/50 ML BAG ONE (00:10)
--- NOTE | 2018-07-16 00:15 | CONSULT ---
Consult Consult: CC; abdominal pain HPI: This is a 78 yo M with a complex PMH including cryptogenic cirrhosis, s/p TIPS, CAD, s/p PTCA/stentx3, recurrent GI bleed and known umbilical and inguinal hernias. He had been in his usual state of health until yesterday at 10pm when he developed mid abdominal pain that radiated toward the epigastrium. He felt constipated and noted that his usual dose of lactulose did not have effect last night. He slept poorly due to the pain. He ate poorly this morning and began vomiting and hiccuping at 10 AM. He took his usual medications, including another dose of lactulose with no relief. He "felt blocked" and tried an enema with no effect. He called Dr. Campo's office and was directed to the ED. A CT abd/pelvis was done which showed SBO with a loop of intestine in the umbilical hernia and distal collapsed bowel. Attempt to reduce the hernia by ED staff was unsuccessful and so Surgical consultation was requested. NGT placed by ED drained 4.5L. The patient is accompanied by his and daughter. PMH: cryptogenic cirrhosis, hepatic encephalopathy, recurrent GI bleed, CAD, sleep apnea, anemia, DVT, monoclonal gammopathy, PSH: PTCA and stents, PPM, IVC filter, TIPS, lap brijesh Meds:spironolactone, magnesium oxide, lactulose, ASA, lasix, iron, Crestor, Xifaxan, Protonix, Toprol XL All: adhesive tape, horse dander, LATEX, midodrine, horse serum. 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 FH: noncontributory PE: Vital Signs Temp 97.8 F 07/15/18 19:47 Pulse 95 07/15/18 23:17 Resp 11 07/15/18 23:17 BP 141/78 07/15/18 23:17 Pulse Ox 98 07/15/18 23:17 Intake & Output 07/15/18 07/15/18 07/16/18 06:59 18:59 06:59 Weight 213 lb Gen: awake, A&Ox3; NAD HEENT: NCAT; sclera anicteric; NGT R nares with epistaxis (mild). Chest: CTA; regular s1s2 Abd: distended; healed scars; umbilical hernia not reducible; bilateral inguinal hernias, L>R. Soft and non-tender. Ext: warm. Laboratory Results - last 24 hr 07/15/18 07/15/18 07/15/18 20:13 20:13 20:18 WBC 7.0 RBC 3.24 L Hgb 10.3 L Hct 31 L MCV 94 MCH 32 H MCHC 34 RDW 21 H Plt Count 214 MPV 7.4 Neut % (Auto) 87.8 Lymph % (Auto) 7.5 Garza % (Auto) 4.5 Eos % (Auto) 0.1 Baso % (Auto) 0.1 Absolute Neuts (auto) 6.2 Absolute Lymphs (auto) 0.5 L Absolute Monos (auto) 0.3 Absolute Eos (auto) 0 Absolute Basos (auto) 0 Absolute Nucleated RBC 0 Nucleated RBC % 0 INR (Anticoag Therapy) Sodium Potassium Chloride Carbon Dioxide Anion Gap BUN Creatinine Est GFR ( Amer) Est GFR (Non-Af Amer) BUN/Creatinine Ratio Glucose Lactic Acid 4.5 H* Calcium Magnesium Total Bilirubin AST ALT Alkaline Phosphatase Ammonia 126 H Troponin I C-Reactive Protein B-Natriuretic Peptide Total Protein Albumin Globulin Albumin/Globulin Ratio Amylase Lipase Blood Type Antibody Screen 07/15/18 07/15/18 07/15/18 20:18 20:18 20:18 WBC RBC Hgb Hct MCV MCH MCHC RDW Plt Count MPV Neut % (Auto) Lymph % (Auto) Garza % (Auto) Eos % (Auto) Baso % (Auto) Absolute Neuts (auto) Absolute Lymphs (auto) Absolute Monos (auto) Absolute Eos (auto) Absolute Basos (auto) Absolute Nucleated RBC Nucleated RBC % INR (Anticoag Therapy) 0.94 Sodium 139 Potassium 3.6 Chloride 106 Carbon Dioxide 20 L Anion Gap 13 H BUN 34 H Creatinine 1.85 H Est GFR ( Amer) 43.2 Est GFR (Non-Af Amer) 35.7 BUN/Creatinine Ratio 18.4 Glucose 225 H Lactic Acid Calcium 9.2 Magnesium 1.9 Total Bilirubin 0.90 AST 53 H ALT 59 H Alkaline Phosphatase 173 H Ammonia Troponin I 0.01 C-Reactive Protein 8.40 H B-Natriuretic Peptide Total Protein 7.4 Albumin 3.0 L Globulin 4.4 H Albumin/Globulin Ratio 0.7 L Amylase 96 Lipase 84 H Blood Type A Positive Antibody Screen Negative 07/15/18 20:19 WBC RBC Hgb Hct MCV MCH MCHC RDW Plt Count MPV Neut % (Auto) Lymph % (Auto) Garza % (Auto) Eos % (Auto) Baso % (Auto) Absolute Neuts (auto) Absolute Lymphs (auto) Absolute Monos (auto) Absolute Eos (auto) Absolute Basos (auto) Absolute Nucleated RBC Nucleated RBC % INR (Anticoag Therapy) Sodium Potassium Chloride Carbon Dioxide Anion Gap BUN Creatinine Est GFR ( Amer) Est GFR (Non-Af Amer) BUN/Creatinine Ratio Glucose Lactic Acid Calcium Magnesium Total Bilirubin AST ALT Alkaline Phosphatase Ammonia Troponin I C-Reactive Protein B-Natriuretic Peptide 506 H Total Protein Albumin Globulin Albumin/Globulin Ratio Amylase Lipase Blood Type Antibody Screen CT imaging reviewed from 07/15/18 and compared with earlier study. Impression: 78 yo M with complex PMH with incarcerated, possibly strangulated, umbilical hernia causing SBO. Plan/Recommendation: Surgical repair of umbilical hernia. I discussed the findings with the patient and his family and explained the nature of surgery, indications, risks, benefits, alternatives and option of no treatment. I explained that operative findings would dictate the procedure and that this may include small bowel resection. Risks were explained including, not limited to: bleeding, infection, pain, blood clots, pneumonia, cardiac events, visceral injury, and the risks of anesthesia. All his questions were answered. He stated understanding and agrees to proceed.
[2018-07-16] MEDS ORDERED: Sodium Citrate/Citric Acid* 15 ML UDC PO ONE (00:26)
[2018-07-16] MEDS ORDERED: Sodium Citrate/Citric Acid* 15 ML UDC ONE (00:27)
--- NOTE | 2018-07-16 00:32 | ADMNOTE ---
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 In the emergency room he received a NG tube with 4.5L out and CT abd/pelvis notable for a SBO thought in setting of incarcerated hernia. Patient will be taken to the OR tonight with Dr. Mayra lewis and in light of his complicated medical history the hospitalists will follow for medical co-management. Seen after surgery which was uneventful. Performed with conscious sedation. Family History: Findings - father with cancer, mother young after childbirth Social History: Findings - no tobacco/EtOH, illicits Past Medical History: Findings - cryptogenic cirrhosis c/b hepatic encephalopathy s/p TIPS, recurrent GIB now off plavix, CAD s/p stents 2017 with in stent restenosis and additional stents placed, recurrent GIBs, polypectomy in [place] 05/2018, PPM, sleep apnea on CPAP, anemia, monoclonal gammopathy, DVT s/p IVC filter, lap cholecystsectomy Review of Systems - Measurements Intake and Output: Intake and Output Last 24 Hours 07/13/18 07/14/18 07/15/18 07/16/18 11:59 11:59 11:59 11:59 Intake Total 250 Balance 250 Weight 96.615 kg Intake: IVPB 250 - Review of Systems General Comments: nausea, vomiting since 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 Objective Active Medications: Hydrocodone Bitart/Acetaminophen (Welling 5-325 Tab*) 1 tab PO ONCE PRN PRN Reason: PAIN - MODERATE Aspirin (Asa Supp*) 300 mg AL DAILY IVANA Citric Acid/Sodium Citrate (Bicitra*) 15 ml PO ONCE ONE Stop: 07/16/18 00:27 Last Admin: 07/16/18 00:46 Dose: 15 ml Fentanyl Citrate (Fentanyl*) 25 mcg IV Q5M PRN PRN Reason: PAIN - MODERATE Hydromorphone HCl (Dilaudid Inj*) 0.5 mg IV Q1H PRN PRN Reason: Pain - severe Sodium Chloride (Ns 0.9% 1000 Ml*) 1,000 mls @ 100 mls/hr IV PER RATE [facility] Metoprolol Tartrate (Lopressor Iv*) 2.5 mg IV BID [facility] Naloxone HCl (Narcan*) 0.08 mg IV Q2M PRN PRN Reason: severe induced resp depression Ondansetron HCl (Zofran Inj*) 4 mg IV ONCE PRN PRN Reason: NAUSEA/VOMITING Ondansetron HCl (Zofran Inj*) 4 mg IV Q4H PRN PRN Reason: NAUSEA/VOMITING Oxycodone/Acetaminophen (Percocet 5/325 Tab*) 1 tab PO ONCE PRN PRN Reason: PAIN - MODERATE Pantoprazole Sodium (Protonix Iv*) 40 mg IV DAILY [facility] Vital Signs - 8 hr 07/15/18 07/15/18 07/15/18 19:47 20:17 20:25 Temperature 97.8 F Pulse Rate 84 86 82 Respiratory 16 Rate Blood Pressure 122/49 149/73 (mmHg) O2 Sat by Pulse 99 98 97 Oximetry 07/15/18 07/15/18 07/15/18 20:47 21:00 21:17 Temperature Pulse Rate 81 86 87 Respiratory 14 12 15 Rate Blood Pressure 132/67 136/67 (mmHg) O2 Sat by Pulse 97 97 97 Oximetry 07/15/18 07/15/18 07/15/18 21:47 22:00 22:17 Temperature Pulse Rate 91 93 Respiratory 12 16 13 Rate Blood Pressure 162/72 138/79 (mmHg) O2 Sat by Pulse 97 97 Oximetry 07/15/18 07/15/18 07/15/18 22:47 23:00 23:05 Temperature Pulse Rate 94 89 92 Respiratory 15 15 16 Rate Blood Pressure 170/71 145/68 (mmHg) O2 Sat by Pulse 97 97 96 Oximetry 07/15/18 07/15/18 07/15/18 23:08 23:17 23:38 Temperature Pulse Rate 95 100 Respiratory 20 11 16 Rate Blood Pressure 141/78 144/71 (mmHg) O2 Sat by Pulse 98 99 Oximetry 07/15/18 07/16/18 23:47 00:26 Temperature 98.6 F Pulse Rate 95 92 Respiratory 17 18 Rate Blood Pressure 123/93 123/93 (mmHg) O2 Sat by Pulse 98 99 Oximetry Oxygen Devices in Use Now: Nasal Cannula Appearance: Awake, NAD Eyes: No Scleral Icterus, PERRLA Ears/Nose/Mouth/Throat: Clear Oropharnyx, Mucous Membranes Moist Neck: NL Appearance and Movements; NL JVP, Trachea Midline Respiratory: Symmetrical Chest Expansion and Respiratory Effort, - - trace rhonci right base Cardiovascular: RRR, - - 2/6 ANUPAM right and left USB Abdominal: - - surgical incision covered, abdomen ND, mild TTP Extremities: - - 2+ RLE, 1-2+ LLE edema Skin: No Rash or Ulcers Neurological: Alert and Oriented x 3 Lines/Tubes/Other Access: Clean, Dry and Intact Schultz, Clean, Dry and Intact Naso-enteral Tube Result Diagrams: 07/15/18 20:13 07/15/18 20:18 Assess/Plan/Problems-Billing Assessment: 78 yo M h/o cryptogenic cirrhosis s/p TIPS, recent admit with hepatic encephalopathy, CAD s/p multiple stents in February complicated by GIB s/p polypectomy with continued bleeding and subsequent discontinuation of plavix, DVT s/p IVC filter, 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 Nunez. No additional testing warranted prior to OR in setting of urgent/emergent need for intervention -maintain schultz -maintain NG tube -advance diet per surgical team Cryptogenic cirrhosis- high risk for encephalopathy s/p procedure. Careful management of electrolytes and other modifiable risks including minimizing opioid, benzodiazepines where possible s/p procedure. Will continue lactulose and rifaxamin when diet and medications can be advanced. Consider lactulose through NG if can tolerate starting tomorrow. - Restart aldactone when can be delivered PO and BP tolerates -Evaluate for restarting lasix tomorrow based on volume status. Was discharged on 20 mg PO, can resume 10mg IV or PRN . CAD - off of plavix s/p recent intervention in February s/p recurrent GIBs. High risk for thrombosis prior to surgery. Concern for systemic inflammation s/p procedure leading to additional thrombosis. Treat all chest pain seriously. Troponins and EKGs for chest pain or equivalent symptoms (ie SOB etc). -c/w ASA AL -metoprolol IV BID Lactic acidosis - in setting of incarcerated hernia -repeat lactic with next labs SALEEM - recommend c/w CPAP when NG out DVT - IVC filter in place. Anemia - followed by hematology. Thought multifactoral. -Trend History of GIB - protonix IV CKD - avoid nephrotoxic medications DVT ppx - per primary team after surgery. Status and Disposition: in patient ICU
[2018-07-16] MEDS ORDERED: Midazolam* 1 MG/ML 2 ML VIAL (2 MG) ONE (00:51)
[2018-07-16] MEDS ORDERED: KETAMINE HCL* 50 MG/ML 10 ML VIAL ONE (00:51)
[2018-07-16] MEDS ORDERED: Famotidine IV* 10 MG/ML 2 ML (20 mg) ONE (00:55)
[2018-07-16] MEDS ORDERED: Phenylephrine INJ* 10 MG/ML 1 ML VIAL (10 MG) ONE (01:51)
[2018-07-16] MEDS ORDERED: HYDROmorphone INJ* 0.5 MG/0.5 ML SYRINGE IV PRN (02:44)
[2018-07-16] MEDS ORDERED: Ondansetron INJ* 2 MG/ML VIAL IV PRN ×2 (02:44→02:52)
[2018-07-16] MEDS ORDERED: oxyCODONE/Acetamin 5/325 MG* TAB PO PRN (02:52)
[2018-07-16] MEDS ORDERED: fentaNYL* 50 MCG/ML 2 ML VIAL (100 MCG VIAL) IV PRN (02:52)
[2018-07-16] MEDS ORDERED: Naloxone* 0.4 MG/ML 1 ML VIAL IV PRN (02:52)
[2018-07-16] MEDS ORDERED: HYDROcodone/ACETAMIN 5-325 MG* 1 TAB PO PRN (02:52)
--- NOTE | 2018-07-16 02:59 | BRIEFOPN ---
Brief Operative Note - Surgery Procedures: PREOP DX: INCARCERATED UMBILICAL HERNIA POSTOP DX: STRANGULATED UMBILICAL HERNIA PROC: OPEN REDUCTION AND REPAIR OF STRANGULATED UMBILICAL HERNIA WITH SMALL BOWEL RESECTION SURG: MECENAS ASSIST: NONE ANES: LOCAL/MAC; DR. LAZARO EBL: <10ML IVF: 1.5L CRYST SPEC: PORTION OF SMALL BOWEL; HERNIA SAC DRAIN: NONE COMPL: NONE COND: STABLE TO RR FINDINGS: INCARCERATED KNUCKLE OF SMALL BOWEL WITH PATCHY ISCHEMIA C/W STRANGULATION.
[2018-07-16] MEDS: NS 0.9% 1000 ML* 1,000 ML IV SCH ×3 (03:50→22:03)
[2018-07-16 05:26] LABS: Urine Appearance Cloudy; Urine Bacteria Absent (Absent); Urine Bilirubin Negative (Negative); Urine Blood 3+ (Negative); Urine Color Yellow; Urine Glucose Negative (Negative); Urine Ketones Negative (Negative); Urine Nitrite Negative (Negative); Urine Protein 1+(30 mg/dL) (Negative); Urine Red Blood Cell 3+(>10/hpf) (Absent); Urine Specific Gravity 1.042 (1.010-1.030); Urine Urobilinogen Negative (Negative); Urine White Blood Cell Absent (Absent)
--- NOTE | 2018-07-16 07:55 | OP ---
CC: Rc Campo MD; Franklyn Johnston MD * DATE OF OPERATION: 07/16/18 - ROOM #ICU-04 DATE OF : 44 SURGEON: Gonzalo Nunez MD [employer] DEVELOPER: None. ANESTHESIOLOGIST: Dr. Renner. ANESTHESIA: Local MAC. PRE-OP DIAGNOSIS: Incarcerated umbilical hernia. POST-OP DIAGNOSIS: Strangulated umbilical hernia. OPERATIVE PROCEDURE: Open reduction and repair of strangulated umbilical hernia with small bowel resection. ESTIMATED BLOOD LOSS: Less than 10 mL. IV FLUIDS: 1.5 L crystalloids. SPECIMENS: Portion of the small bowel and hernia sac. DRAINS: None. COMPLICATIONS: None. COUNTS: The instrument, needle, sponge counts were correct. DESCRIPTION OF PROCEDURE: The patient was brought to the operating room and placed on the table supine. Sequential compression devices were not used due to his history of a recent DVT. The patient was administered intravenous sedation. He was positioned and padded appropriately. A Vogt catheter was placed. His abdomen was prepped and draped in the usual sterile fashion and a time-out was performed. Local anesthetic was infiltrated as a field block periumbilically. The curvilinear infraumbilical incision was created and extended laterally in each direction to allow adequate incision. The subcutaneous tissues were divided with a combination of sharp dissection and cautery. The umbilical skin was dissected free from the umbilical hernia sac which was noted to have some purplish discoloration. After completely dissecting the skin off the sac, the sac was opened and there was bloody ascites noted. There was a knuckle of ischemic appearing small bowel within it. This could not be reduced initially. In order to free the bowel, the fascia was incised cephalad and caudad. The bowel was reduced and adjacent and healthy bowel was grasped with the Patricia clamp in order to easily retrieve the site. A 3.7 L of bloody ascites was suctioned from the abdomen. After a period of 5 to 10 minutes, the small bowel was exteriorized to inspect it. There appeared to be numerous small areas of patchy ischemia within a small segment of the bowel that had been in the hernia. This was perhaps a 4 cm segment of small bowel. Ultimately, it was decided that due to the concern for full thickness ischemia, this area would be resected. After lapping off the wound, the proximal and distal areas of resection were identified and the intervening mesentry was scored with cautery and then divided with LigaSure. The small bowel resection and anastomosis were performed using a Farooq technique with a GIA80 blue stapler. There was no spillage during this procedure. The anastomosis was reinforced with 3-0 silk at the crotch of the anastomosis and 3-0 silks were used to oversew the anterior staple line. The end staple lines were also brought together with 3-0 silk. After hemostasis was assured, the bowel was returned to the abdominal cavity. Due to the patient's recurrent ascites, it was decided to close the peritoneum and this was done with 4- 0 Prolene in running and locking fashion. The fascial defect was closed with interrupted 0 Ethibond sutures in figure-of- eight fashion. The wound was irrigated. Prior to closing the skin, inspection revealed that there were areas of ischemia and damage to the umbilical skin that ultimately led to the decision to excise the umbilicus. The wound was then closed with a series of 3-0 Vicryl sutures for the deep dermis and the jun were used for the skin. Dressings were applied. The patient tolerated the procedure well and was then transferred to Recovery in stable condition. [id number]/[facility] #: [id number] GALO
[2018-07-16] MEDS: Metoprolol Tartrate IV* 1 MG/ML 5 ML VIAL IV SCH ×2 (10:01→21:33)
[2018-07-16 10:06] LABS: Hematocrit 25 % (42-52); Hemoglobin 8.6 g/dl (14.0-18.0); Mean Corpuscular HGB Conc 34 g/dl (31-36); Mean Corpuscular Hemoglobin 32 pg (27-31); Mean Corpuscular Volume 94 fL (80-94); Mean Platelet Volume 7.5 fL (7.4-10.4); Platelet Count 149 10^3/ul (150-450); Red Cell Distribution Width 21 % (10.5-15); White Blood Count 6.1 10^3/ul (3.5-10.8)
[2018-07-16 10:25] LABS: BUN/Creatinine Ratio 19.1 (8-20); EGFR Non-African American 37.3 (>60); Magnesium 1.6 mg/dL (1.9-2.7); Potassium 3.9 mmol/L (3.5-5.0)
[2018-07-16 10:45] LABS: ABS Basophils 0 10^3/ul (0-0.2); ABS Eosinophils 0 10^3/ul (0-0.6); ABS Lymphocytes 0.2 10^3/ul (1.0-4.8); ABS Monocytes 0.7 10^3/ul (0-0.8); ABS Neutrophils 5.1 10^3/ul (1.5-7.7); ABS Nucleated RBC 0 10^3/ul; Eosinophil % 0.1 %; Lymphocyte % 3.5 %; Nucleated Red Blood Cells % 0.1
[2018-07-16] MEDS: Aspirin SUPP* 300 MG PR SCH (11:11)
[2018-07-16] MEDS: Pantoprazole IV* 40 MG IV SCH (11:15)
[2018-07-16] MEDS ORDERED: Zosyn per Pharmacy* NOTE FOLLOW UP PRN (11:49)
[2018-07-16] MEDS ORDERED: ZOSYN 3.375 GM x ONE DOSE over 30 miuntes IVPB ×2 (12:00)
[2018-07-16] MEDS ORDERED: Magnesium Sulfate IV* 3 GM in NS 0.9% 100 ML* 100 ML IVPB ONE (15:00)
[2018-07-16] MEDS: ZOSYN 3.375 GM Q8H per EXTENDED INFUSION IVPB SCH ×2 (16:45)
--- NOTE | 2018-07-16 17:29 | PN ---
Date of Service: 07/16/14 Critical Care Services: Patient has had an uneventful postop course. No flatus today. Vital Signs: Temp Pulse Resp BP SpO2 FiO2 99.4 F 85 13 97/40 98 Physical Exam: Gen:Alert, oriented Lungs:Clear Abdomen:No bowel sounds. Neuro:No asterixis Fluid Balance (Past 24 Hours): 07/16/18 06:59 Intake Total 548 Output Total 560 Balance -12 Weight 193 lb Intake: IV Fluids 268 NS (0.9%) 268 IVPB 250 Zosyn Oral 0 NG Tube Irrigate Amount 30 Output: NG Tube Drainage Amount 100 Vogt 460 Other: Date of Last Bowel 07/15/18 Movement Labs: Laboratory Results - last 24 hr 07/15/18 07/15/18 07/15/18 20:13 20:13 20:18 WBC 7.0 RBC 3.24 L Hgb 10.3 L Hct 31 L MCV 94 MCH 32 H MCHC 34 RDW 21 H Plt Count 214 MPV 7.4 Neut % (Auto) 87.8 Lymph % (Auto) 7.5 [place] % (Auto) 4.5 Eos % (Auto) 0.1 Baso % (Auto) 0.1 Absolute Neuts (auto) 6.2 Absolute Lymphs (auto) 0.5 L Absolute Monos (auto) 0.3 Absolute Eos (auto) 0 Absolute Basos (auto) 0 Absolute Nucleated RBC 0 Nucleated RBC % 0 INR (Anticoag Therapy) Sodium Potassium Chloride Carbon Dioxide Anion Gap BUN Creatinine Est GFR ( Amer) Est GFR (Non-Af Amer) BUN/Creatinine Ratio Glucose POC Glucose (mg/dL) Lactic Acid 4.5 H* Calcium Magnesium Total Bilirubin AST ALT Alkaline Phosphatase Ammonia 126 H Troponin I C-Reactive Protein B-Natriuretic Peptide Total Protein Albumin Globulin Albumin/Globulin Ratio Amylase Lipase Urine Color Urine Appearance Urine pH Ur Specific [place] Urine Protein Urine Ketones Urine Blood Urine Nitrate Urine Bilirubin Urine Urobilinogen Ur Leukocyte Esterase Urine WBC (Auto) Urine RBC (Auto) Urine Bacteria Urine Yeast Urine Glucose Blood Type Antibody Screen 07/15/18 07/15/18 07/15/18 20:18 20:18 20:18 WBC RBC Hgb Hct MCV MCH MCHC RDW Plt Count MPV Neut % (Auto) Lymph % (Auto) [place] % (Auto) Eos % (Auto) Baso % (Auto) Absolute Neuts (auto) Absolute Lymphs (auto) Absolute Monos (auto) Absolute Eos (auto) Absolute Basos (auto) Absolute Nucleated RBC Nucleated RBC % INR (Anticoag Therapy) 0.94 Sodium 139 Potassium 3.6 Chloride 106 Carbon Dioxide 20 L Anion Gap 13 H BUN 34 H Creatinine 1.85 H Est GFR ( Amer) 43.2 Est GFR (Non-Af Amer) 35.7 BUN/Creatinine Ratio 18.4 Glucose 225 H POC Glucose (mg/dL) Lactic Acid Calcium 9.2 Magnesium 1.9 Total Bilirubin 0.90 AST 53 H ALT 59 H Alkaline Phosphatase 173 H Ammonia Troponin I 0.01 C-Reactive Protein 8.40 H B-Natriuretic Peptide Total Protein 7.4 Albumin 3.0 L Globulin 4.4 H Albumin/Globulin Ratio 0.7 L Amylase 96 Lipase 84 H Urine Color Urine Appearance Urine pH Ur Specific [place] Urine Protein Urine Ketones Urine Blood Urine Nitrate Urine Bilirubin Urine Urobilinogen Ur Leukocyte Esterase Urine WBC (Auto) Urine RBC (Auto) Urine Bacteria Urine Yeast Urine Glucose Blood Type A Positive Antibody Screen Negative 07/15/18 07/16/18 07/16/18 20:19 04:05 05:05 WBC RBC Hgb Hct MCV MCH MCHC RDW Plt Count MPV Neut % (Auto) Lymph % (Auto) [place] % (Auto) Eos % (Auto) Baso % (Auto) Absolute Neuts (auto) Absolute Lymphs (auto) Absolute Monos (auto) Absolute Eos (auto) Absolute Basos (auto) Absolute Nucleated RBC Nucleated RBC % INR (Anticoag Therapy) Sodium Potassium Chloride Carbon Dioxide Anion Gap BUN Creatinine Est GFR ( Amer) Est GFR (Non-Af Amer) BUN/Creatinine Ratio Glucose POC Glucose (mg/dL) 159 H Lactic Acid Calcium Magnesium Total Bilirubin AST ALT Alkaline Phosphatase Ammonia Troponin I C-Reactive Protein B-Natriuretic Peptide 506 H Total Protein Albumin Globulin Albumin/Globulin Ratio Amylase Lipase Urine Color Yellow Urine Appearance Cloudy Urine pH 5.0 Ur Specific [place] 1.042 H Urine Protein 1+(30 mg/dl) A Urine Ketones Negative Urine Blood 3+ A Urine Nitrate Negative Urine Bilirubin Negative Urine Urobilinogen Negative Ur Leukocyte Esterase Negative Urine WBC (Auto) Absent Urine RBC (Auto) 3+(>10/hpf) A Urine Bacteria Absent Urine Yeast Present A Urine Glucose Negative Blood Type Antibody Screen 07/16/18 07/16/18 07/16/18 05:54 09:37 09:37 WBC 6.1 RBC 2.70 L Hgb 8.6 L Hct 25 L MCV 94 MCH 32 H MCHC 34 RDW 21 H Plt Count 149 L MPV 7.5 Neut % (Auto) 84.5 Lymph % (Auto) 3.5 [place] % (Auto) 11.7 Eos % (Auto) 0.1 Baso % (Auto) 0.2 Absolute Neuts (auto) 5.1 Absolute Lymphs (auto) 0.2 L Absolute Monos (auto) 0.7 Absolute Eos (auto) 0 Absolute Basos (auto) 0 Absolute Nucleated RBC 0 Nucleated RBC % 0.1 INR (Anticoag Therapy) Sodium 141 Potassium 3.9 Chloride 110 Carbon Dioxide 24 Anion Gap 7 BUN 34 H Creatinine 1.78 H Est GFR ( Amer) 45.2 Est GFR (Non-Af Amer) 37.3 BUN/Creatinine Ratio 19.1 Glucose 130 H POC Glucose (mg/dL) Lactic Acid 2.2 H* Calcium 8.0 L Magnesium 1.6 L Total Bilirubin AST ALT Alkaline Phosphatase Ammonia Troponin I C-Reactive Protein B-Natriuretic Peptide Total Protein Albumin Globulin Albumin/Globulin Ratio Amylase Lipase Urine Color Urine Appearance Urine pH Ur Specific [place] Urine Protein Urine Ketones Urine Blood Urine Nitrate Urine Bilirubin Urine Urobilinogen Ur Leukocyte Esterase Urine WBC (Auto) Urine RBC (Auto) Urine Bacteria Urine Yeast Urine Glucose Blood Type Antibody Screen Studies: None today Nutrition: NPO Impression: Satisfactory postop course. No evidence of hepatic emcephalopathy Plan: 1. Will start Rifaximin Rx as prophylaxis for hepatic encephalopathy. 2. Continue NPO until flatus. Critical Care Time:
[2018-07-16] MEDS: Rifaximin 20 mg/mL Suspension (Pharmacy to Compound) FEED TUBE SCH (21:33)
[2018-07-16] MEDS ORDERED: NS 0.9% 500 ML* 500 ML IV ONE (23:56)
[2018-07-17] MEDS: ZOSYN 3.375 GM Q8H per EXTENDED INFUSION IVPB SCH ×6 (00:06→16:24)
[2018-07-17 06:49] LABS: BUN/Creatinine Ratio 18.1 (8-20); Blood Urea Nitrogen 39 mg/dL (6-24); CO2 Carbon Dioxide 20 mmol/L (22-32); EGFR Non-African American 29.9 (>60); Glucose 116 mg/dL (70-100); Potassium 4.2 mmol/L (3.5-5.0); Sodium 143 mmol/L (135-145)
[2018-07-17 06:50] LABS: Anion Gap 8 mmol/L (2-11); Chloride 115 mmol/L (101-111)
[2018-07-17 06:57] LABS: ABS Basophils 0 10^3/ul (0-0.2); ABS Eosinophils 0 10^3/ul (0-0.6); ABS Lymphocytes 0.3 10^3/ul (1.0-4.8); ABS Monocytes 0.4 10^3/ul (0-0.8); ABS Neutrophils 2.3 10^3/ul (1.5-7.7); ABS Nucleated RBC 0 10^3/ul; Hematocrit 22 % (42-52); Hemoglobin 7.5 g/dl (14.0-18.0); Lymphocyte % 8.5 %; Mean Corpuscular HGB Conc 34 g/dl (31-36); Mean Corpuscular Hemoglobin 32 pg (27-31); Mean Corpuscular Volume 96 fL (80-94); Mean Platelet Volume 7.9 fL (7.4-10.4); Nucleated Red Blood Cells % 0; Platelet Count 100 10^3/ul (150-450); Red Blood Count 2.33 10^6/ul (4.00-5.40); Red Cell Distribution Width 21 % (10.5-15); White Blood Count 3.1 10^3/ul (3.5-10.8)
[2018-07-17] MEDS: NS 0.9% 1000 ML* 1,000 ML IV SCH (07:11)
--- NOTE | 2018-07-17 08:23 | PN ---
Date of Service: 07/17/18 Critical Care Services: Patient had uneventful evening. Has had flatus and BM. No confusion, fever, etc. Vital Signs: Temp Pulse Resp BP SpO2 FiO2 99.4 F 89 14 114/50 100 Physical Exam: Gen:alert, oriented, breathing comfortably Lungs: Clear Abdomen:Positive bowel sounds Neuro: No asterixis Fluid Balance (Past 24 Hours): 07/16/18 07/17/18 06:59 06:59 Intake Total 548 2844 Output Total 560 780 Balance -12 2063 Weight 193 lb 196 lb Intake: IV Fluids 268 2659 NS (0.9%) 268 2355 Zosyn 194 magnesium 110 IVPB 250 105 Zosyn 105 Oral 0 Tube Feeding Flush Amount 80 NG Tube Irrigate Amount 30 Output: NG Tube Drainage Amount 100 180 Vogt 460 600 Other: Date of Last Bowel 07/15/18 07/17/2018 Movement # Bowel Movements 1 Estimated Stool Amount Medium Labs: 07/16/18 07/16/18 07/17/18 09:37 09:37 06:25 WBC 6.1 RBC 2.70 L Hgb 8.6 L Hct 25 L MCV 94 MCH 32 H MCHC 34 RDW 21 H Plt Count 149 L MPV 7.5 Neut % (Auto) 84.5 Lymph % (Auto) 3.5 Mcdonald % (Auto) 11.7 Eos % (Auto) 0.1 Baso % (Auto) 0.2 Absolute Neuts (auto) 5.1 Absolute Lymphs (auto) 0.2 L Absolute Monos (auto) 0.7 Absolute Eos (auto) 0 Absolute Basos (auto) 0 Absolute Nucleated RBC 0 Nucleated RBC % 0.1 Sodium 141 143 Potassium 3.9 4.2 Chloride 110 115 H Carbon Dioxide 24 20 L Anion Gap 7 8 BUN 34 H 39 H Creatinine 1.78 H 2.16 H Est GFR ( Amer) 45.2 36.1 Est GFR (Non-Af Amer) 37.3 29.9 BUN/Creatinine Ratio 19.1 18.1 Glucose 130 H 116 H Calcium 8.0 L 7.0 L Magnesium 1.6 L 07/17/18 06:25 WBC 3.1 L RBC 2.33 L Hgb 7.5 L Hct 22 L MCV 96 H MCH 32 H MCHC 34 RDW 21 H Plt Count 100 L MPV 7.9 Neut % (Auto) 75.6 Lymph % (Auto) 8.5 Mcdonald % (Auto) 14.2 Eos % (Auto) 1.0 Baso % (Auto) 0.7 Absolute Neuts (auto) 2.3 Absolute Lymphs (auto) 0.3 L Absolute Monos (auto) 0.4 Absolute Eos (auto) 0 Absolute Basos (auto) 0 Absolute Nucleated RBC 0 Nucleated RBC % 0 Sodium Potassium Chloride Carbon Dioxide Anion Gap BUN Creatinine Est GFR ( Amer) Est GFR (Non-Af Amer) BUN/Creatinine Ratio Glucose Calcium Magnesium Studies: None today Nutrition: Has been NPO Impression: 1. Satisfactory postop course. 2. Hyperchloremic acidosis most likely from the isotonic saline. 3. Increasing creatinine most likely prerenal in origin. Plan: 1. Start clear liquid diet. 2. Switch from saline to Ringers to relieve the acidosis, and increase rate slightly to alleviate the prerenal azotemia. 2. Patient can be transferred out of the ICU
[2018-07-17] MEDS ORDERED: Lactated Ringers 1000 ML Bag* 1,000 ML IV SCH (09:00)
[2018-07-17] MEDS: Rifaximin 20 mg/mL Suspension (Pharmacy to Compound) FEED TUBE SCH (10:44)
[2018-07-17] MEDS: Pantoprazole IV* 40 MG IV SCH (10:44)
[2018-07-17] MEDS: Aspirin SUPP* 300 MG PR SCH (10:44)
[2018-07-17] MEDS: Metoprolol Tartrate IV* 1 MG/ML 5 ML VIAL IV SCH (10:44)
[2018-07-17] MEDS: Lactated Ringers 1000 ML Bag* 1,000 ML IV SCH ×2 (12:26→21:01)
--- NOTE | 2018-07-17 16:20 | PN ---
Subjective Date of Service: 07/17/18 Interval History: Pt feels well. Had 2 BM's in the past 24H. Post op pain is well controlled Family History: Findings - father with cancer, mother young after childbirth Social History: Findings - no tobacco/EtOH, illicits Past Medical History: Findings - cryptogenic cirrhosis c/b hepatic encephalopathy s/p TIPS, recurrent GIB now off plavix, CAD s/p stents 2018 with in stent restenosis and additional stents placed, recurrent GIBs, polypectomy in [place] 05/2018, PPM, sleep apnea on CPAP, anemia, monoclonal gammopathy, DVT s/p IVC filter, lap cholecystectomy Objective Active Medications: Aspirin (Aspirin Ec Tab*) 81 mg PO DAILY [facility] Hydromorphone HCl (Dilaudid Inj*) 0.5 mg IV Q1H PRN PRN Reason: Pain - severe Piperacillin Sod/Tazobactam (Sod 3.375 gm/ Sodium Chloride) 100 mls @ 25 mls/ hr IVPB Q8H [facility] Last Admin: 07/17/18 07:41 Dose: 25 mls/hr Lactated Ringer's (Lactated Ringers 1000 Ml Bag*) 1,000 mls @ 75 mls/hr IV PER RATE [facility] Last Admin: 07/17/18 12:26 Dose: 75 mls/hr Lactulose (Lactulose*) 30 ml PO QID [facility] Last Admin: 07/17/18 13:32 Dose: 30 ml Magnesium Oxide (Magox 400 Tab*) 400 mg PO DAILY [facility] Metoprolol Succinate (Toprol Xl Tab*) 12.5 mg PO BID [facility] Omeprazole (Prilosec Cap*) 20 mg PO BID [facility] Ondansetron HCl (Zofran Inj*) 4 mg IV Q4H PRN PRN Reason: NAUSEA/VOMITING Pharmacy Consult (Zosyn Per Pharmacy*) 1 note FOLLOW UP . PRN PRN Reason: PER PROTOCOL Rifaximin (Xifaxan*) 550 mg PO BID [facility] Vital Signs - 8 hr 07/17/18 07/17/18 07/17/18 09:00 09:12 09:15 Temperature 98.6 F Pulse Rate 85 Respiratory 18 18 18 Rate Blood Pressure 110/45 (mmHg) O2 Sat by Pulse 100 Oximetry 07/17/18 07/17/18 07/17/18 09:47 10:00 11:00 Temperature 98.6 F Pulse Rate 85 Respiratory 18 18 18 Rate Blood Pressure 110/45 (mmHg) O2 Sat by Pulse 100 Oximetry 07/17/18 07/17/18 11:44 15:06 Temperature 98.5 F 98.5 F Pulse Rate 88 89 Respiratory 17 18 Rate Blood Pressure 123/49 90/31 (mmHg) O2 Sat by Pulse 100 100 Oximetry Oxygen Devices in Use Now: None Appearance: 78 yo M in nAD, AAOx3 Eyes: No Scleral Icterus, PERRLA Ears/Nose/Mouth/Throat: NL Teeth, Lips, Gums, Mucous Membranes Moist Neck: NL Appearance and Movements; NL JVP, Trachea Midline Respiratory: Symmetrical Chest Expansion and Respiratory Effort, Clear to Auscultation Cardiovascular: NL Sounds; No Murmurs; No JVD, RRR Abdominal: - - soft, mildly distended, BS+, post op dressings near umbilicus not removed Lymphatic: No Cervical Adenopathy Extremities: No Clubbing, Cyanosis, - - +1 pedal turner ab/l Skin: No Nodules or Sclerosis Neurological: Alert and Oriented x 3, NL Muscle Strength and Tone Result Diagrams: 07/17/18 06:25 07/17/18 06:25 Microbiology and Other Data: Microbiology 07/16/18 05:05 Urine Culture - Final Urine No Growth (<1,000 CFU/mL) Assess/Plan/Problems-Billing Assessment: 78 yo M h/o cryptogenic cirrhosis s/p TIPS, recent admit with hepatic encephalopathy, CAD s/p multiple stents in February complicated by GIB s/p polypectomy with continued bleeding and subsequent discontinuation of plavix, DVT s/p IVC filter, 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 Nunez on 07/16/18. Post op clears ordered today. (2) Chronic renal disease, stage 4, severely decreased glomerular filtration rate (GFR) between 15-29 mL/min/1.73 square meter Comment: slightly higher than baseline , cont IVF, monitor (3) Cirrhosis, cryptogenic Comment: - s/p TIPS 02/2018 , under the care of Dr. Looney (GI/hepatology from [place]) -restart his lactulose 30 ml QID - cont rifaximin 550 mg bid -not encephalopathic -holding Aldactone and Lasix, currently hypo- to euvolemic clinically (4) Increased ammonia level Comment: -pt is not encpehalopathic and is known to have normal mentation with ammonia >100. cont Lactulose and clinical exam daily (5) SALEEM (obstructive sleep apnea) Comment: Continue CPAP-pt has his own equipment (6) CAD (coronary artery disease) SNOMED Code(s): 45457521 Comment: - Pt s/p AMI with in stent restenosis 02/2018. Continue ASA, metoprolol -Plavix on hold since last admisson for GI bleed (7) DVT prophylaxis Comment: -S/P recent IVC placement on 05/06/18 -due to recent GI bleed anticoagulaton contraindicated Status and Disposition: inpatient
--- NOTE | 2018-07-17 16:48 | PN ---
Progress Note - Progress Note Date of Service: 07/17/18 SOAP: Subjective: Passing flatus and has had BM. NGT d/c'd earlier today. No N/V and mady clears. Mild pain. Objective: Vital Signs Temp 98.5 F 07/17/18 15:06 Pulse 89 07/17/18 15:06 Resp 18 07/17/18 15:06 BP 90/31 07/17/18 15:06 Pulse Ox 100 07/17/18 15:06 Gen: sitting up drinking. NAD. Abd: incision c/d/i; no erythema; soft and mildly tender at incision. Intake & Output 07/16/18 07/17/18 07/17/18 18:59 06:59 18:59 Intake Total 853 1991 1226 Output Total 370 410 784 Balance 483 1581 442 Weight 196 lb 13.965 oz Intake: IV Fluids 748 1911 786 LR 289 NS (0.9%) 748 1607 387 Zosyn 194 110 magnesium 110 IVPB 105 Zosyn 105 Oral 440 Tube Feeding Flush Amount 80 Output: NG Tube Drainage Amount 100 80 Urine 120 Vogt 270 330 664 Other: Date of Last Bowel 07/17/2018 07/17/18 Movement # Bowel Movements 1 1 Estimated Stool Amount Medium Medium Assessment: POD#2 s/p reduction repair of umbilical hernia;SB rsxn. Doing remarkably well. Plan: adv diet as tolerated. ambulate. home tomorrow?
[2018-07-17] MEDS: RiFAXimin* 550 MG TAB PO SCH (22:45)
[2018-07-17] MEDS: Metoprolol Succinate XL TAB* 25 MG PO SCH (22:45)
[2018-07-17] MEDS: Omeprazole CAP* 20 MG PO SCH (22:45)
[2018-07-17] MEDS: ZOSYN 3.375 GM IVPB SCH ×2 (22:55)
[2018-07-18] MEDS: ZOSYN 3.375 GM IVPB SCH ×8 (04:34→20:19)
[2018-07-18 06:09] LABS: Hematocrit 21 % (42-52); Mean Corpuscular HGB Conc 34 g/dl (31-36); Mean Corpuscular Hemoglobin 32 pg (27-31); Mean Corpuscular Volume 96 fL (80-94); Mean Platelet Volume 7.5 fL (7.4-10.4); Platelet Count 112 10^3/ul (150-450); Red Blood Count 2.17 10^6/ul (4.00-5.40); Red Cell Distribution Width 21 % (10.5-15); White Blood Count 2.6 10^3/ul (3.5-10.8)
[2018-07-18 06:25] LABS: Albumin 1.9 g/dL (3.2-5.2); Albumin/Globulin Ratio 0.7 (1-3); BUN/Creatinine Ratio 17.7 (8-20); EGFR Non-African American 29.2 (>60); Globulin 2.8 g/dL (2-4); Potassium 3.6 mmol/L (3.5-5.0); Total Bilirubin 0.8 mg/dL (0.2-1.0); Total Protein 4.7 g/dL (6.4-8.9)
[2018-07-18] MEDS: Metoprolol Succinate XL TAB* 25 MG PO SCH ×2 (08:49→20:18)
[2018-07-18] MEDS: Aspirin EC TAB* 81 MG TAB.EC PO SCH (08:50)
[2018-07-18] MEDS: Omeprazole CAP* 20 MG PO SCH ×2 (08:50→20:18)
[2018-07-18] MEDS: Magnesium Oxide TAB* 400 MG PO SCH (08:51)
[2018-07-18] MEDS: RiFAXimin* 550 MG TAB PO SCH ×2 (08:51→20:18)
[2018-07-18] MEDS ORDERED: Calcium Gluconate INJ* 1 GM in NS 0.9% 50 ML* 50 ML IVPB ONE (09:10)
[2018-07-18 10:19] LABS: Creatinine, Serum 2.26 mg/dL (0.51-0.95)
[2018-07-18 10:24] LABS: Urine Creatinine Concentration 108.79 mg/dL
--- NOTE | 2018-07-18 12:36 | PN ---
Progress Note - Progress Note Date of Service: 07/18/18 SOAP: Subjective: []He has more incision pain today. Continued flatus and loose BMs. Tolerance for low residue diet. Worried. about low blood counts. Notes was supposed to be seen at [facility] tomorrow. Objective: [] Vital Signs Temp 98.0 F 07/18/18 11:17 Pulse 65 07/18/18 11:17 Resp 14 07/18/18 11:17 BP 102/42 07/18/18 11:41 Pulse Ox 100 07/18/18 11:17 Gen:. NAD Abd: soft, distended; incision c/d/i; no erythema. Mildly tender. Intake & Output 07/17/18 07/18/18 07/18/18 18:59 06:59 18:59 Intake Total 1226 1435 1480 Output Total 884 420 Balance 342 1015 1480 Intake: IV Fluids 786 885 LR 289 510 NS (0.9%) 387 50 Zosyn 110 325 Oral 551 414 3319 Output: Urine 220 420 Vogt 664 Other: Date of Last Bowel 07/17/18 Movement # Bowel Movements 1 Estimated Stool Amount Medium Laboratory Results - last 24 hr 07/18/18 07/18/18 07/18/18 06:00 06:00 06:00 WBC 2.6 L RBC 2.17 L Hgb 7.0 L Hct 21 L MCV 96 H MCH 32 H MCHC 34 RDW 21 H Plt Count 112 L MPV 7.5 Sodium 136 Potassium 3.6 Chloride 112 H Carbon Dioxide 18 L Anion Gap 6 BUN 39 H Creatinine 2.20 H Est GFR ( Amer) 35.4 Est GFR (Non-Af Amer) 29.2 BUN/Creatinine Ratio 17.7 Glucose 76 Calcium 7.0 L Ionized Calcium 1.03 L Magnesium 2.0 Total Bilirubin 0.80 AST 28 ALT 27 Alkaline Phosphatase 106 H Total Protein 4.7 L Albumin 1.9 L Globulin 2.8 Albumin/Globulin Ratio 0.7 L Ur Creatinine Concen U Sodium Concentration Renal Sodium Excretion 07/18/18 07/18/18 09:13 09:13 WBC RBC Hgb Hct MCV MCH MCHC RDW Plt Count MPV Sodium 136 Potassium Chloride Carbon Dioxide Anion Gap BUN Creatinine 2.26 H Est GFR ( Amer) Est GFR (Non-Af Amer) BUN/Creatinine Ratio Glucose Calcium Ionized Calcium Magnesium Total Bilirubin AST ALT Alkaline Phosphatase Total Protein Albumin Globulin Albumin/Globulin Ratio Ur Creatinine Concen 107.08 108.79 U Sodium Concentration 42 Renal Sodium Excretion 0.64 Active Medications Generic Name Dose Route Start Last Admin Trade Name Freq PRN Reason Stop Dose Admin Aspirin 81 mg 07/18/18 09:00 07/18/18 08:50 Aspirin Ec Tab* PO 81 mg DAILY IVANA Administration Hydromorphone HCl 0.5 mg 07/16/18 02:44 Dilaudid Inj* IV Q1H PRN Pain - severe Lactated Ringer's 1,000 mls @ 75 mls/hr 07/17/18 10:42 07/17/18 21:01 Lactated Ringers 1000 Ml Bag* IV 75 mls/hr PER RATE IVANA Administration Piperacillin Sod/Tazobactam 100 mls @ 200 mls/hr 07/18/18 12:30 Sod 3.375 gm/ Sodium Chloride IVPB 0430,1230,2030 IVANA Lactulose 30 ml 07/17/18 13:00 07/18/18 08:51 Lactulose* PO 30 ml QID IVANA Administration Magnesium Oxide 400 mg 07/18/18 09:00 07/18/18 08:51 Magox 400 Tab* PO 400 mg DAILY IVANA Administration Metoprolol Succinate 12.5 mg 07/17/18 21:00 07/18/18 08:49 Toprol Xl Tab* PO 12.5 mg BID IVANA Administration Omeprazole 20 mg 07/17/18 21:00 07/18/18 08:50 Prilosec Cap* PO 20 mg BID IVANA Administration Ondansetron HCl 4 mg 07/16/18 02:44 Zofran Inj* IV Q4H PRN NAUSEA/VOMITING Pharmacy Consult 1 note 07/16/18 11:49 Zosyn Per Pharmacy* FOLLOW UP . PRN PER PROTOCOL Rifaximin 550 mg 07/17/18 21:00 07/18/18 08:51 Xifaxan* PO 550 mg BID IVANA Administration Assessment: []POD#3 s/p reduction repair of umbilical hernia;SB rsxn. Unremarkable surgical course. Cirrhosis, CAD, DVT, anemia Plan: []Cont diet. Will consult [facility]. Appreciate Hospitalist f/u
--- NOTE | 2018-07-18 14:22 | PN ---
Subjective Date of Service: 07/18/18 Interval History: Pt feels well. Has had 8-9 BMs in 24hrs. Mild abd discomfort at the site of surgery. 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, recurrent GIB now off plavix, CAD s/p stents 2017 with in stent restenosis and additional stents placed, recurrent GIBs, polypectomy in [place] 05/2018, PPM, sleep apnea on CPAP, anemia, monoclonal gammopathy, DVT s/p IVC filter, lap cholecystectomy Objective Active Medications: Aspirin (Aspirin Ec Tab*) 81 mg PO DAILY [facility] Last Admin: 07/18/18 08:50 Dose: 81 mg Hydromorphone HCl (Dilaudid Inj*) 0.5 mg IV Q1H PRN PRN Reason: Pain - severe Lactated Ringer's (Lactated Ringers 1000 Ml Bag*) 1,000 mls @ 75 mls/hr IV PER RATE [facility] Last Admin: 07/17/18 21:01 Dose: 75 mls/hr Piperacillin Sod/Tazobactam (Sod 3.375 gm/ Sodium Chloride) 100 mls @ 200 mls/ hr IVPB 0430,1230,2030 [facility] Last Admin: 07/18/18 12:33 Dose: 200 mls/hr Lactulose (Lactulose*) 30 ml PO QID [facility] Last Admin: 07/18/18 12:32 Dose: 30 ml Magnesium Oxide (Magox 400 Tab*) 400 mg PO DAILY [facility] Last Admin: 07/18/18 08:51 Dose: 400 mg Metoprolol Succinate (Toprol Xl Tab*) 12.5 mg PO BID [facility] Last Admin: 07/18/18 08:49 Dose: 12.5 mg Omeprazole (Prilosec Cap*) 20 mg PO BID [facility] Last Admin: 07/18/18 08:50 Dose: 20 mg Ondansetron HCl (Zofran Inj*) 4 mg IV Q4H PRN PRN Reason: NAUSEA/VOMITING Pharmacy Consult (Zosyn Per Pharmacy*) 1 note FOLLOW UP . PRN PRN Reason: PER PROTOCOL Rifaximin (Xifaxan*) 550 mg PO BID [facility] Last Admin: 07/18/18 08:51 Dose: 550 mg Vital Signs - 8 hr 07/18/18 07/18/18 07/18/18 07:15 08:24 08:30 Temperature 97.8 F 97.4 F Pulse Rate 68 72 Respiratory 17 17 16 Rate Blood Pressure 96/38 101/43 (mmHg) O2 Sat by Pulse 99 99 Oximetry 07/18/18 07/18/18 11:17 11:41 Temperature 98.0 F Pulse Rate 65 Respiratory 14 Rate Blood Pressure 83/29 102/42 (mmHg) O2 Sat by Pulse 100 Oximetry Oxygen Devices in Use Now: None Appearance: 78 yo m in nAD, aAOx3 Eyes: No Scleral Icterus, PERRLA Ears/Nose/Mouth/Throat: NL Teeth, Lips, Gums, Mucous Membranes Moist Neck: NL Appearance and Movements; NL JVP, Trachea Midline Respiratory: Symmetrical Chest Expansion and Respiratory Effort, Clear to Auscultation Cardiovascular: NL Sounds; No Murmurs; No JVD, RRR Abdominal: - - mild distention noted, soft, mild tendrness reta-incision, no rebound, no guarding, BS +,abd incision stapled Lymphatic: No Cervical Adenopathy Extremities: - - +1 pitting pedal edema b/l Skin: No Nodules or Sclerosis Neurological: Alert and Oriented x 3, NL Muscle Strength and Tone Result Diagrams: 07/18/18 06:00 07/18/18 09:13 Microbiology and Other Data: Microbiology 07/16/18 05:05 Urine Culture - Final Urine No Growth (<1,000 CFU/mL) Assess/Plan/Problems-Billing Assessment: 78 yo M h/o cryptogenic cirrhosis s/p TIPS, recent admit with hepatic encephalopathy, CAD s/p multiple stents in February complicated by GIB s/p polypectomy with continued bleeding and subsequent discontinuation of plavix, DVT s/p IVC filter, 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 Hb down to 7 today, pt still appears prerenal. Will transfuse 1 U PRBC. (2) Incarcerated umbilical hernia Comment: s/p surgical reduction and small portion of small bowel removed by Dr. Nunez on 07/16/18. Post op clears ordered today. (3) Chronic renal disease, stage 4, severely decreased glomerular filtration rate (GFR) between 15-29 mL/min/1.73 square meter Comment: slightly higher than baseline , cont IVF, monitor FeNA 0.6, will cont IVF, hold diuretics, transfuse (4) Cirrhosis, cryptogenic Comment: - s/p TIPS 02/2018 , under the care of Dr. Looney (GI/hepatology from [place]) -due to muliple BM's will hold PM does of his lactulose - cont rifaximin 550 mg bid -not encephalopathic -holding Aldactone and Lasix, currently hypo- to euvolemic clinically (5) Increased ammonia level Comment: -pt is not encpehalopathic and is known to have normal mentation with ammonia >100. cont Lactulose and clinical exam daily (6) SALEEM (obstructive sleep apnea) Comment: Continue CPAP-pt has his own equipment (7) CAD (coronary artery disease) SNOMED Code(s): 66105787 Comment: - Pt s/p AMI with in stent restenosis 02/2018. Continue ASA, metoprolol -Plavix on hold since last admisson for GI bleed (8) DVT prophylaxis Comment: -S/P recent IVC placement on 05/06/18 -due to recent GI bleed anticoagulaton contraindicated Status and Disposition: inpatient
[2018-07-18] MEDS: Lactated Ringers 1000 ML Bag* 1,000 ML IV SCH (17:36)
--- NOTE | 2018-07-18 19:49 | PN ---
Progress Note - Progress Note Date of Service: 07/18/18 SOAP: Subjective: []Well known to our service and followed for recurrent DAGMAR, IV iron in the past. He has cryptogenic cirrhosis, refractory ascites and is now status post TIPS. Course complicated by encephalopathy. He has had PR/unstable angina s/p stent and then recurrent GIB on Plavix. Seen last during prior hospitalization. He was discharged home and did well for one week before developing acute abdominal pain. Presentation with incarcerated umbilical hernia, surgery and now doing well. He is at baseline MS, walking, eating well. Has > 10 BM today and had lactulose decreased. Has had recurrent leukopenia on last two admissions as well as recurrent anemia from presumed bleeding and mild thrombocytopenia. Aspirin (Aspirin Ec Tab*) 81 mg PO DAILY [facility] Last Admin: 07/18/18 08:50 Dose: 81 mg Hydromorphone HCl (Dilaudid Inj*) 0.5 mg IV Q1H PRN PRN Reason: Pain - severe Lactated Ringer's (Lactated Ringers 1000 Ml Bag*) 1,000 mls @ 75 mls/hr IV PER RATE [facility] Last Admin: 07/18/18 17:36 Dose: 75 mls/hr Piperacillin Sod/Tazobactam (Sod 3.375 gm/ Sodium Chloride) 100 mls @ 200 mls/ hr IVPB 0430,1230,2030 [facility] Last Admin: 07/18/18 12:33 Dose: 200 mls/hr Lactulose (Lactulose*) 30 ml PO TID [facility] Magnesium Oxide (Magox 400 Tab*) 400 mg PO DAILY [facility] Last Admin: 07/18/18 08:51 Dose: 400 mg Metoprolol Succinate (Toprol Xl Tab*) 12.5 mg PO BID [facility] Last Admin: 07/18/18 08:49 Dose: 12.5 mg Omeprazole (Prilosec Cap*) 20 mg PO BID [facility] Last Admin: 07/18/18 08:50 Dose: 20 mg Ondansetron HCl (Zofran Inj*) 4 mg IV Q4H PRN PRN Reason: NAUSEA/VOMITING Pharmacy Consult (Zosyn Per Pharmacy*) 1 note FOLLOW UP . PRN PRN Reason: PER PROTOCOL Rifaximin (Xifaxan*) 550 mg PO BID [facility] Last Admin: 07/18/18 08:51 Dose: 550 mg PMHx: Low blood counts 1. 04/[address] left knee with osteochondral lesion in medial femoral condyle. No clear lytic lesions on limited bone in film. 2. Dr. Callahan. SPEP positive for IgG kappa monoclonal protein, 0.83 gm/dL. CBC and WBC 2.7, Plts 135, Hgb 12., MCV 82. 3. Skeletal Survey negative 4. 12/2013 Bone marrow biopsy 10% plasma cells, kappa restricted. t(11;14) 5. 11/2016 Bone marrow biopsy 5% plasma cells, 40% cellularity, small monoclonal B-cell population 6. Quantitative immunoglobulins, low IgM, mild elevation IgG 7. 24 hr UPEP, negative Cryptogenic Ascites - Dx 08/2016, presented with new ascites - Bx with grade 1 hepatitis and grade 2 fibrosis. Negative for amyloid - Recurrent paracentesis - TIPS on 03/28/18 Objective: [] Vital Signs Temp Pulse Resp BP Pulse Ox 98 F 70 16 95/39 98 07/18/18 15:05 07/18/18 15:05 07/18/18 15:05 07/18/18 15:05 07/18/18 15:05 HEENT: pale, no oral lesions CTA RRR S1S2 Fluid wave, baseline, healing incision. Ext +1 edema Neuro AAOx3, doing well. Assessment: []78 year old with recurrent DAGMAR, IV iron in the past. He has cryptogenic cirrhosis, refractory ascites and is now status post TIPS. Course complicated by encephalopathy. He has had PR/unstable angina s/p stent and then recurrent GIB on Plavix. Subsequent bleeding off Plavix from colon polyp. Now s/p hernia repair and all things considered doing well. He had additional drop in Hgb, Tx 1 U PRBC. Plan: []1. Anemia. From recurrent GI bleed though specific source unclear. Agree with 1 U PRBC and check Hgb in am. Will add Iron studies onto labs from this am, can consider IV iron. 2. 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 3. Leukopenia seen on last admission and is likely second to liver disease though medication effect cannot be excluded, including beta paramjit. Follow for now. 4. Will follow up in clinic with CBC early to mid next week.
[2018-07-18 21:36] LABS: Iron 19 ug/dL (50-212); Total Iron Binding Capacity 164 mcg/dL (250-450); Transferrin 117 mg/dL (203-362)
[2018-07-18 21:55] LABS: Ferritin 98.4 ng/mL (24-336)
[2018-07-19] MEDS: ZOSYN 3.375 GM IVPB SCH ×2 (04:39)
[2018-07-19 05:22] LABS: ABS Basophils 0 10^3/ul (0-0.2); ABS Eosinophils 0.2 10^3/ul (0-0.6); ABS Lymphocytes 0.6 10^3/ul (1.0-4.8); ABS Monocytes 0.3 10^3/ul (0-0.8); ABS Neutrophils 1.6 10^3/ul (1.5-7.7); ABS Nucleated RBC 0 10^3/ul; Eosinophil % 7.9 %; Hematocrit 22 % (42-52); Hemoglobin 7.5 g/dl (14.0-18.0); Lymphocyte % 23.1 %; Mean Corpuscular HGB Conc 34 g/dl (31-36); Mean Corpuscular Hemoglobin 32 pg (27-31); Mean Corpuscular Volume 93 fL (80-94); Nucleated Red Blood Cells % 0; Platelet Count 106 10^3/ul (150-450); Red Blood Count 2.37 10^6/ul (4.00-5.40); Red Cell Distribution Width 20 % (10.5-15); White Blood Count 2.8 10^3/ul (3.5-10.8)
[2018-07-19 05:38] LABS: BUN/Creatinine Ratio 16.3 (8-20); Calcium 6.9 mg/dL (8.6-10.3); EGFR Non-African American 28.2 (>60); Potassium 3.8 mmol/L (3.5-5.0)
[2018-07-19] MEDS: Lactated Ringers 1000 ML Bag* 1,000 ML IV SCH (08:25)
[2018-07-19] MEDS: Omeprazole CAP* 20 MG PO SCH (08:27)
[2018-07-19] MEDS: Metoprolol Succinate XL TAB* 25 MG PO SCH (08:28)
[2018-07-19] MEDS: RiFAXimin* 550 MG TAB PO SCH (08:28)
[2018-07-19] MEDS: Aspirin EC TAB* 81 MG TAB.EC PO SCH (08:28)
[2018-07-19] MEDS: Magnesium Oxide TAB* 400 MG PO SCH (08:28)
[2018-07-19 11:42] VITALS: BP 97/37
--- NOTE | 2018-07-19 13:12 | PN ---
Progress Note - Progress Note Date of Service: 07/19/18 SOAP: Subjective: [] He was seen this morning. Pain was better. No nausea or vomiting. Multiple loose BMs. He received transfusion last night. Objective: Vital Signs Temp 97.3 F 07/19/18 11:41 Pulse 62 07/19/18 11:41 Resp 18 07/19/18 11:41 BP 97/37 07/19/18 11:41 Pulse Ox 97 07/19/18 11:41 Gen: NAD Abd: incision c/d/i; no erythema. Soft and minimally tender. Intake & Output 07/18/18 07/19/18 07/19/18 18:59 06:59 18:59 Intake Total 3356 1255 Output Total 250 400 Balance 3106 855 Intake: IV Fluids 752 375 LR 752 250 NS (0.9%) 20 Zosyn 105 IVPB 70 caLCIUM GLUCONATE 70 Oral 2220 880 Packed Cells 314 Output: Urine 250 400 Other: # Bowel Movements 0 Laboratory Results - last 24 hr 07/15/18 07/17/18 07/18/18 20:18 06:25 06:00 WBC RBC Hgb Hct MCV MCH MCHC RDW Plt Count MPV Neut % (Auto) Lymph % (Auto) Polk % (Auto) Eos % (Auto) Baso % (Auto) Absolute Neuts (auto) Absolute Lymphs (auto) Absolute Monos (auto) Absolute Eos (auto) Absolute Basos (auto) Absolute Nucleated RBC Nucleated RBC % Sodium 143 136 Potassium 4.2 3.6 Chloride 115 H 112 H Carbon Dioxide 20 L 18 L Anion Gap 8 6 BUN 39 H 39 H Creatinine 2.16 H 2.20 H Est GFR ( Amer) 36.1 35.4 Est GFR (Non-Af Amer) 29.9 29.2 BUN/Creatinine Ratio 18.1 17.7 Glucose 116 H 76 Calcium 7.0 L 7.0 L Magnesium 2.0 Iron 19 L Cancelled TIBC 164 L Cancelled % Saturation 12 L Cancelled Unsat Iron Binding < 149 Cancelled Transferrin 117 L Cancelled Ferritin 98.4 Cancelled Total Bilirubin 0.80 AST 28 ALT 27 Alkaline Phosphatase 106 H Total Protein 4.7 L Albumin 1.9 L Globulin 2.8 Albumin/Globulin Ratio 0.7 L Blood Type A Positive Antibody Screen Negative Crossmatch See Detail 07/19/18 07/19/18 05:14 05:14 WBC 2.8 L RBC 2.37 L Hgb 7.5 L Hct 22 L MCV 93 MCH 32 H MCHC 34 RDW 20 H Plt Count 106 L MPV 7.0 L Neut % (Auto) 57.4 Lymph % (Auto) 23.1 Polk % (Auto) 10.8 Eos % (Auto) 7.9 Baso % (Auto) 0.8 Absolute Neuts (auto) 1.6 Absolute Lymphs (auto) 0.6 L Absolute Monos (auto) 0.3 Absolute Eos (auto) 0.2 Absolute Basos (auto) 0 Absolute Nucleated RBC 0 Nucleated RBC % 0 Sodium 134 L Potassium 3.8 Chloride 110 Carbon Dioxide 18 L Anion Gap 6 BUN 37 H Creatinine 2.27 H Est GFR ( Amer) 34.1 Est GFR (Non-Af Amer) 28.2 BUN/Creatinine Ratio 16.3 Glucose 86 Calcium 6.9 L Magnesium Iron TIBC % Saturation Unsat Iron Binding Transferrin Ferritin Total Bilirubin AST ALT Alkaline Phosphatase Total Protein Albumin Globulin Albumin/Globulin Ratio Blood Type Antibody Screen Crossmatch Assessment: POD#4 s/p reduction repair of umbilical hernia;SB rsxn. Improved. Cirrhosis, CAD, DVT. Slight improvement in anemia after transfusion. Plan: Ok for d/c home from surgical POV. Have d/w Dr. Arriaga who will coordinate discharge.
--- NOTE | 2018-07-20 03:31 | DS ---
CC: Dr. Johnston; Dr. Nunez; Dr. Guillen; Dr. Olmedo; Dr. Ruiz; Dr. Ward; Cassandra Donaldson, Surgical Service * DISCHARGE SUMMARY: DATE OF ADMISSION: 07/16/18 DATE OF DISCHARGE: 07/19/18 PRIMARY CARE PROVIDER: Dr. Johnston. DISCHARGE DIAGNOSES: 1. Status post reduction and repair of incarcerated umbilical hernia performed by Dr. Nunez on 07/16/18 as well as partial small bowel resection. 2. Worsening of chronic kidney disease, stage III, postoperatively. 3. Acute postoperative anemia on top of chronic anemia, status post 1 unit of packed red blood cell transfusion on 07/18/18. SECONDARY DIAGNOSES: 1. History of cryptogenic liver cirrhosis, status post TIPS procedure in February 2018. 2. History of coronary artery disease, status post stenting in September 2017. 3. Acute myocardial infarction in February 2018 with in-stent restenosis and 3 more stents placed at that point at [facility]. 4. History of recurrent GI bleed with large polyps in small bowel removed in [place] in May 2018. 5. Status post pacemaker placement. 6. Sleep apnea, on CPAP. 7. History of anemia. 8. History of monoclonal gammopathy, under the care of Dr. Guillen. 9. History of DVT, status post IVC filter placement. 10. Status post laparoscopic cholecystectomy. 11. History of recurrent GI bleed, now off Plavix due to that. 12. History of hepatic encephalopathy in the past and it is notable that the patient's ammonia levels do not correspond with the patient's encephalopathy level. The patient had been known to have ammonia level well over 100 with normal mentation. MEDICATIONS AT DISCHARGE: Include: 1. Aspirin 81 mg daily. 2. Metoprolol succinate 12.5 mg b.i.d. 3. Protonix 40 mg b.i.d. 4. Crestor 40 mg daily. 5. Aldactone 50 mg daily. 6. Ferrous sulfate 325 mg b.i.d. 7. Lactulose 30 mL 4 times a day. 8. Mag-Ox 400 mg daily. 9. Rifaximin 550 mg b.i.d. The patient is instructed to have a basic metabolic panel drawn on 07/25/18 as well as CBC. The patient is asked to see his primary care provider for a followup already scheduled on 07/25/18. The patient is also scheduled to see Jamilah Donaldson on 07/27/18 at 2:15 p.m. for surgical followup. CONSULTATIONS DURING THE HOSPITAL STAY: Included Dr. Guillen from Oncology and Dr. Nunez from surgical service. PROCEDURES PERFORMED: Included reduction, repair and partial small bowel resection of incarcerated umbilical hernia performed by Dr. Nunez on 07/16/18. LABORATORY DATA AND STUDIES PERFORMED DURING THE HOSPITAL STAY: Included: On 07/19/18, sodium of 134, potassium 3.8, chloride 110, carbon dioxide 18, BUN 37 , creatinine 2.27. The patient's iron study was noted on 07/17/18; that shows iron of 19, TIBC of 164, percent iron saturation of 12, transferrin of 117. CBC on 07/19/18, white blood cell count of 2.8, hemoglobin of 7.5, hematocrit of 22, and platelets of 106. Renal sodium excretion was obtained on 07/18/18 and was 0.64. Abdomen and pelvis CT obtained at admission, impression: "High-grade small bowel obstruction due to small bowel containing umbilical hernia, no perforation or ischemia. Portal hypertension, post TIPS with no concurrent evidence of cirrhosis. Bosniak type 1 and 2 renal cysts. No followup indicated. Gastroesophageal reflux without esophagitis." Most recent chest x-ray obtained on 07/18/18, impression: "No active cardiopulmonary disease." HOSPITALIZATION COURSE: Bernardo Ashford is a 78-year-old male with history of cryptogenic liver cirrhosis and recurrent GI bleeds for which he had been evaluated and admitted multiple times at our facility that resolved eventually after he had polypectomy and his post-polypectomy bowel healed. The patient also is known to have history of hepatic encephalopathy, but his ammonia levels do not correspond to his symptomatology. The patient may be asymptomatic with an ammonia level well over 100. The patient was admitted to the hospital on 07/16/18 after he developed severe abdominal pain. He was noted to have incarcerated umbilical hernia. Dr. Nunez took the patient urgently to the operating room on 07/16/18, reduced the hernia, repaired it, and removed a small segment of small bowel. Postoperatively, the patient did very well considering his chronic medical conditions. He was able to be advanced to full soft diet on 07/18/18 and he is being discharged on 07/19/18. Please note that the patient's creatinine had been slowly increasing over the course of the past 3 days. His fractional excretion of sodium was 0.6, and due to that, the patient likely was prerenal; his intravenous fluids were continued. He also received 1 unit of packed red blood cells due to his hemoglobin level of 7 postoperatively. On the day of discharge, the patient's hemoglobin is 7.5. His abdomen appears to be gathering ascites again. Due to that, I contacted Dr. Ward who is the patient 's racing board marker. Dr. Ward recommended continuation of the patient's Aldactone and discontinuation of Lasix. The patient may need to restart Lasix sometime next week. At this point, the patient is going to be discharged home with recommendation to continue regular diet and followup appointments as indicated above. The patient's blood work is scheduled for 07/25/18 and his appointment with Dr. Johnston is right after that. PHYSICAL EXAM AT THE TIME OF DISCHARGE: Blood pressure of 97/37, heart rate of 62 and regular, respiratory rate 18, oxygen saturation 97% on room air, temperature 97.3. General: The patient is a very pleasant 78-year-old male, who is in no acute distress. Alert, awake, oriented x3. HEENT: Head atraumatic, normocephalic. Eyes: Pupils are equal and reactive to light and accommodation. Oropharynx clear. Mucosa moist. Neck: Supple. No JVD. No bruits bilaterally. Cardiovascular: Regular rate and rhythm. No murmur. Respiratory: Clear to auscultation bilaterally. Abdomen: Distended, soft, ascites present, nontender. Bowel sounds present in all 4 quadrants. The umbilical hernia incision is a transverse mid abdomen incision of approximately 5 cm. It is stapled with no evidence of dehiscence, and no drainage and no skin infection in the surrounding areas. Extremities: There is +1 pitting pedal edema, which is chronic in the patient. Pulses are +2 bilaterally. There is no clubbing or cyanosis. Neuro evaluation: Speech clear. Cranial nerves II through XII grossly intact. Motor strength is 5/5 bilaterally. Please note that this is a short summary of the patient's hospital stay. Please refer to further medical records for details. TIME SPENT: Approximately 45 minutes were spent on this patient's discharge. [id number]/CPS #: [id number] GALO
== END 2018-07-19 15:50 | disposition home or self-care (01) | DRG 330 ==
LOC: ED 19:46 → ICU 07-16 02:44 → SSU 07-17 09:08
PROVIDERS: ADMIT Surgery; ATTEND Internal Medicine
PROC: 0DB80ZZ Excision of Small Intestine, Open Approach (ICD-10-PCS; principal; 2018-07-16)
PROC: 0WQF0ZZ Repair Abdominal Wall, Open Approach (ICD-10-PCS; 2018-07-16)
PROC: 30233N1 Transfusion of Nonautologous Red Blood Cells into Peripheral Vein, Percutaneous Approach (ICD-10-PCS; 2018-07-18)
DX: K42.0 Umbilical hernia with obstruction, without gangrene (principal); E87.2 Acidosis; R18.8 Other ascites; K55.9 Vascular disorder of intestine, unspecified; N18.4 Chronic kidney disease, stage 4 (severe); D62 Acute posthemorrhagic anemia; I25.10 Atherosclerotic heart disease of native coronary artery without angina pectoris; Z96.1 Presence of intraocular lens; E78.00 Pure hypercholesterolemia, unspecified; G47.33 Obstructive sleep apnea (adult) (pediatric); K21.9 Gastro-esophageal reflux disease without esophagitis; K58.9 Irritable bowel syndrome, unspecified; K74.69 Other cirrhosis of liver; N28.1 Cyst of kidney, acquired; D69.6 Thrombocytopenia, unspecified; I12.9 Hypertensive chronic kidney disease with stage 1 through stage 4 chronic kidney disease, or unspecified chronic kidney disease; D47.2 Monoclonal gammopathy; Z88.8 Allergy status to other drugs, medicaments and biological substances; Z85.51 Personal history of malignant neoplasm of bladder; Z86.010 Personal history of colon polyps; Z91.040 Latex allergy status; Z79.82 Long term (current) use of aspirin; Z98.42 Cataract extraction status, left eye; Z98.41 Cataract extraction status, right eye; Z90.49 Acquired absence of other specified parts of digestive tract; Z95.5 Presence of coronary angioplasty implant and graft; Z82.49 Family history of ischemic heart disease and other diseases of the circulatory system; Z87.891 Personal history of nicotine dependence; Z86.718 Personal history of other venous thrombosis and embolism; I25.2 Old myocardial infarction; Z95.0 Presence of cardiac pacemaker
CPT/HCPCS: 36415; 71045; 74177; 80048; 80053; 81003; 81015; 82140; 82150; 82330; 82570; 82728; 83540; 83550; 83605; 83690; 83735; 83880; 84300; 84484; 85025; 85027; 85610; 86140; 86850; 86900; 86901; 86922; 87086; 88302; 88307; 93005; 99285; A9270-GY; C1776; G8978-GP-CI; G8979-GP-CI; G8980-GP-CI; G8987-GO-CI; G8988-GO-CI; G8989-GO-CI; J0610; J0694; J2250; J2270; J2405; J2543; J3010; J3475; J3490; P9040; Q9967

== ENCOUNTER 2018-08-14 10:09 | Inpatient (IN) | payer MEDICARE ==
--- OUTSIDE RECORDS SUMMARY | 2018-08-14 10:23 | XMS REPORT | Continuity of Care Document ---
:1940 External Reference #:[id number] Author Name Netoesteban Sunita Care Team Providers Name Role Phone Franklyn Johnston MD Primary Care Physician Unavailable Payers Type Date Identification Numbers Payment Provider Subscriber Effective: Policy Number: [id number] Medicare Blue o Diya Jj Abdprisca 2016 Group Number: [id number] [address] [address] PayID: [id number] SWATI Marcus [address] Effective: 2013 Policy Number: [id number] Medicare Blue Ppo Diya Jj Abdprisca Expires: 2014 Group Number: [id number] [address] [address] Group Name: Expires 14 SWATI Marcus [address] PayID: [id number] Effective: 2010 Policy Number: [id number] [facility] Diya Jj Dejon Expires: 2013 PayID: [id number] [address] [address] SWATI Marcus [address] Effective: 2006 Policy Number: [id number] Medicare Diya Jj Abdnevastefano Expires: 2013 PayID: [id number] [address] [place] [address] Advance Directives Description No Information Available Problems [...] heart disease of Angelic Olmedo M.D. 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 Active transluminal coronary angioplasty Onset: 07/08/2018 Neutropenia Jose Miguel Gill M.D. 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 Active heart disease Onset: 07/19/2018 Obstructed umbilical hernia Maryjo Arriaga M.D. Active Family History Date Family Member(s) [...] Use Denies Drug Use Smoking Status Reviewed: 07/27/18 Patient is a former smoked for 25yrs, [...] Olmedo Metoprolol 09/29/ Active Tablets 25mg 90tab /2 by Angelic Tartrate 2018 s mouth twice Shara, a day Clarita Pantoprazole / Active Tablets 40mg 1 by mouth Unknown Sodium 0000 DR twice one time per day Spironolactone / Active Tablets 50mg 1 by mouth Unknown 0000 every day Furosemide 00/ Active Tablets 20mg 1 by mouth Unknown [...] Angelic Calcium 2018 - s every day [place], 01/10/ M.D. 2017 Brilinta 09/29/ Hx Tablets 90mg 180ta 1 tab by Angelic 2018 - bs mouth twice [place], 11/06/ a day M.D. 2017 Hydrocodone 09/16/ Hx Tablets 5-300mg 14tab 1 tab by Jamilah Parrishartrate/Aceta 2017 s mouth every B. minophen 4 hours as [place], needed pain [employer] Hydrocodone 09/16/ Hx Tablets 5-300mg 14tab 1 tab by Jamilah Parrishartrapau/Aceta 2017 s mouth every B. minophen 4 hours as [place], needed pain [employer] Zantac 03/01/ Hx Tablets 300mg 90tab 1 tab by K21.9 Miriam 2015 - s mouth every MD Annmarie 03/29/ day every 2016 night Lipitor 07/09/ Hx Tablets 80mg 90tab 1 po qhs Bryan 2013 - s Luiz, 03/29/ M.D. 2016 Losartan /00/ Hx Unknown Potassium 0000 - 2013 Celebrex 00/ Hx 200 daily Unknown 0000 - 2015 Aspirin Ec / Hx 81mg daily Unknown Lo-Dose 0000 - 2017 Losartan 00/ Hx Tablets 100mg 1 by mouth Unknown Potassium 0000 every day Nitroglycerin 00/ Hx Tablets 0.4mg 30tab 1 sl as Herman 0000 - Sub s needed Elan Moreno, 07/12/ angina M.D. 2017 Lasix /00/ Hx Tablets 40mg 1 by mouth Unknown 0000 - twice per day 2017 Aldactone 00/ Hx Tablets 50mg 1 by mouth Unknown 0000 - daily 2016 Midodrine HCL 00/00/ Hx Tablets 5mg 1 po tid Sylvia, 0000 - MD Franklyn 2016 Spironolactone // Hx Tablets 50mg 1 tablet po Unknown 0000 - daily ( medication 2018 change since [address] Ward) Plavix /00/ Hx Tablets 75mg 90tab 1 by mouth I25.119 Angelic 0000 - s every day Shara 12/07/ Clarita 2018 Prednisone /00/ Hx Tablets Unknown 0000 - 2017 Clopidogrel /00/ Hx Tablets 75mg 1 by mouth Unknown Bisulfate 0000 - one time 07/12/ per day 2018 Acetaminophen 00/ Hx Tablets 325mg 2 tablets Unknown 0000 - by mouth 07/12/ every 6 2018 hours as needed for pain/fever Melatonin / Hx Tablets 3mg 1 by mouth Unknown 0000 - 1 to 2 hours 2018 before bed as needed Medications Administered in Office Medication Date Status Form Strength Qnty SIG Indications Ordering Provider Inj, Administered Injection Yves Dsouza Regadenoson, 018 Mena DO 0.1 MG FACC Technetium TC Administered Injection Yves S. 99M 018 Mena, DO Tetrofosmin, FACC Per Unit Dose Up To 40 Millicuries Influenza,Unsp Administered Injection Unknown ecified 017 Immunizations CPT Code Status Date Vaccine Lot # [id number] Given 05/14/2014 Influenza Virus 3Yrs & Over Vital Signs Date Vital Result Comment 07/27/2018 2:18pm Heart Rate 66 /min BP Systolic Sitting 118 mmHg BP Diastolic Sitting 60 mmHg Respiratory Rate 18 /min Body Temperature 96.9 F 07/13/2018 3:29pm Height 71 inches 5'11" Weight [...] Date Facility Test Result H/L Range Note Laboratory test 07/16/2018 [facility] Surgical SEE RESULT [address] [place] [address] [phone] CBC No Diff 06/28/2018 [facility] White Blood 3.0 10^3/uL Low 3.5-10.[address] [place] [address] [phone] Red Blood Count 3.08 10^6/uL Low 4.00-5.40 [...] fL Low 7.4-10.4 CBC Auto Diff 06/03/2018 [facility] White Blood 3.7 10^3/uL N 3.5-10.[address] [place] [address] [phone] Red Blood Count 1.67 10^6/uL Low 4.00-5.40 Hemoglobin 5.4 g/dL Low 14.0-18.0 3 Hematocrit 16 % Low 42-52 Mean Corpuscular [...] Red Blood Cells % 0.2 Inr/Protime 06/03/2018 [facility] Inr 0.91 N 0.77-1.[address] [place] [address] [phone] Laboratory test 06/03/2018 [facility] Partial 28.8 seconds N 26.0-36.[address] [place] [address] PTT [phone] Comp Metabolic 06/03/2018 [facility] Sodium 136 mmol/L N 135- 145 [place] [address] [phone] Potassium 4.4 mmol/L N 3.5-5.0 Chloride 111 [...] Egfr Non- 32.3 >60 Egfr 39.1 >60 4 Cell Morphology 06/03/2018 [facility] Polychromasia 1+ [place] [address] [phone] Anisocytosis 3+ Elliptocyte 1+ Type & Screen 06/03/2018 [facility] Patient Blood Type A Positive DRIVE [place], [place] [id number] [phone] Antibody Screen NEGATIVE Laboratory test 06/03/2018 [facility] Packed Cells SEE RESULTS [address] BELO <[place] [address] NOTE> [phone] Hemoglobin/Hemat 05/02/2018 [facility] Hemoglobin 7.3 g/dL Low 14.0-[address] [place], [place] [phone] Hematocrit 22 % Low 42-52 Laboratory test 04/20/2018 [facility] Surgical Interface SEE RESULT [address] [place] [address] [phone] Lipid Profile 03/12/2018 [facility] Triglycerides 77 mg/dL 7 (Trig/Chol/HDL) [address] [place] [address] [phone] Cholesterol 142 mg/dL 8 HDL Cholesterol 51.2 mg/dL 9 LDL Cholesterol 75 mg/dL 10 Laboratory test 01/05/2018 [facility] LDL Cholesterol 111 mg/dL [address] [place] [address] [phone] Comp Metabolic 12/29/2017 [facility] Sodium 133 mmol/L Low 139 -[address] [place] [address] [phone] Potassium 4.1 mmol/L N 3.5-5.0 Chloride 103 [...] Egfr Non- 31.6 >60 Egfr 40.7 >60 12 Laboratory test 12/29/2017 [facility] Creatine 16 U/L N 10- [address] Kinase(CK) [place] [address] [phone] Erythrocyte Sed Rate 97 mm/Hr High 0-40 Stool Occult 10/13/2017 [facility] Stool Occult SEE RESULT 13 Blood Diag [address] Blood, [place] [address] [phone] CBC Auto Diff 10/04/2017 [facility] White Blood 4.1 10^3/uL N 3.5-10. [address] Count 8 [place] [address] [phone] Red Blood Count 3.60 10^6/uL Low 4.0-5.4 [...] Blood Cells % 0 Basic Metabolic 10/04/2017 [facility] Sodium 132 mmol/L Low 133-145 Panel [address] [place] [address] [phone] Potassium 4.6 mmol/L N 3.5-5.0 Chloride 104 mmol/L N 101-111 Co2 Carbon Dioxide 23 mmol/L N 22-32 Anion Gap 5 mmol/L N 2-11 Glucose 124 mg/dL High 70-100 Blood Urea Nitrogen 40 mg/dL High 6-24 Creatinine 2.01 mg/dL High 0.67-1.17 BUN/Creatinine Ratio 19.9 N 8-20 Calcium 7.8 mg/dL Low 8.6-10.3 Egfr Non- 32.5 >60 Egfr 41.9 >60 14 Basic Metabolic 10/02/2017 [facility] Sodium 131 mmol/L Low 133-[address] [place] [address] [phone] Potassium 4.6 mmol/L N 3.5-5.0 Chloride 103 mmol/L N 101-111 Co2 Carbon Dioxide 23 mmol/L N 22-32 Anion Gap 5 mmol/L N 2-11 Glucose 128 mg/dL High 70-100 Blood Urea Nitrogen 39 mg/dL High 6-24 Creatinine 2.00 mg/dL High 0.67-1.17 BUN/Creatinine Ratio 19.5 N 8-20 Calcium 8.1 mg/dL Low 8.6-10.3 Egfr Non- 32.7 >60 Egfr 42.1 >60 15 Laboratory test 09/26/2017 [facility] B-Type Natriuretic 54 pg/ mL [address] [place] [address] [phone] Troponin-I (TnI) 0.08 ng/mL High <0.04 17 Basic Metabolic 09/26/2017 [facility] Sodium 132 mmol/L Low 133-[address] [place] [address] [phone] Potassium 5.5 mmol/L High 3.5-5.0 Chloride 103 mmol/L N 101-111 Co2 Carbon Dioxide 25 mmol/L N 22-32 Anion Gap 4 mmol/L N 2-11 Glucose 183 mg/dL High 70-100 Blood Urea Nitrogen 36 mg/dL High 6-24 Creatinine 1.86 mg/dL High 0.67-1.17 BUN/Creatinine Ratio 19.4 N 8-20 Calcium 8.3 mg/dL Low 8.6-10.3 Egfr Non- 35.6 >60 Egfr 45.8 >60 18 HIV 1/2 Ag & 07/12/2017 [facility] HIV-1/-2 Screen, Negative Negative 19 AB Eval [address] [place], [place] [phone] Laboratory 07/12/2017 [facility] Miscellaneous See Comment 20 test finding [address] [place] [address] [phone] Hepatitis E IgM Antibody Negative Negative 21 Laboratory test 07/12/2017 [facility] Hepatitis E Negative Negative [address] [place] [place] [address] [phone] Laboratory test 07/12/2017 [facility] Hepatitis E Negative Negative [address] [place] [address] [phone] Laboratory test 07/12/2017 [facility] Hepatitis E Negative Negative [address] [place] [place] [address] [phone] Laboratory test 07/12/2017 [facility] Hepatitis E Negative Negative [address] [place] [place] [address] [phone] Laboratory test 07/12/2017 [facility] Hepatitis E Negative Negative [address] [place] [address] [phone] Laboratory test 07/12/2017 [facility] Hepatitis E Negative Negative [address] [place] [place] [address] [phone] Laboratory test 07/12/2017 [facility] Hepatitis E Negative Negative [address] [place] [address] [phone] Laboratory test 07/12/2017 [facility] Hepatitis E Negative Negative [address] [place] [address] [phone] Laboratory test 07/12/2017 [facility] Hepatitis E Negative Negative [address] [place] [address] [phone] Laboratory test 07/12/2017 [facility] Hepatitis E Negative Negative [address] [place] [address] [phone] Laboratory test 07/12/2017 [facility] Hepatitis E Negative Negative [address] [place] [place] [address] [phone] Laboratory test 07/12/2017 [facility] Hepatitis E Negative Negative [address] [place] [place] [address] [phone] Laboratory test 07/12/2017 [facility] Hepatitis E Negative Negative [address] [place] [address] [phone] Laboratory test 07/12/2017 [facility] Hepatitis E Negative Negative [address] [place] [address] [phone] Laboratory test 07/12/2017 [facility] Hepatitis E Negative Negative [address] [place] [place] [address] [phone] Laboratory test 07/12/2017 [facility] Hepatitis E Negative Negative [address] [place] [place] [address] [phone] Hepatitis E IgG Antibody Negative Negative 38 Laboratory test 12/02/2016 [facility] Cytology Non-Rug Frame Mounter SEE RESULT [address] [place] [address] [phone] Laboratory test 12/02/2016 [facility] Surgical Pathology SEE RESULT [address] BELOW [place], [place] [address] [phone] Leukemia/Lymphom 12/02/2016 [facility] Path Interpretation TNP N a Flow [address] 2-8 [place] [address] [phone] Path Interpret > 16 Marker TNP N Path Interpret 9-15 Marker (SEE NOTE) N 41 B-Cell Lymphoma 12/02/2016 [facility] FBLP Specimen Bone Marrow N Fish [address] [place], [place] [address] [phone] FBLP Source Right PIC N FBLP Reason for Referral See Comment N 42 FBLP Method See Comment N 43 FBLP Result Summary Normal N FBLP Result See Comment N 44 FBLP Result Table See Comment N 45 FBLP Interpretation See Comment N 46 FBLP Additional Information See Comment N 47 FBLP Released By See Comment N 48 FBLP Disclaimer See Comment N 49 Plasma Cell 12/02/2016 [facility] Plasma Cell Abnormal N Profliferative [address] [place] [address] Summary [phone] Plasma Cell Prolif Specimen Bone Marrow N Plasma Cell Prolif Dis Source Right PIC N Plasma Cell Referral Reason See Comment N 50 Plasma Cell Prolif Dis Method See Comment N 51 Plasma Cell Dis Result Table See Comment N 52 Plasma Cell Prolif Dis Results See Comment N 53 Plasma Cell Dis Interpretation See Comment N 54 Plasma Cell Dis Add Info See Comment N 55 Plasma Cell Dis Disclaimer See Comment N 56 Plasma Cell Dis Released By See Comment N 57 Laboratory test 11/04/2016 [facility] Surgical SEE RESULT [address] [place] [place] [address] [phone] CBC Auto Diff 11/04/2016 [facility] White Blood 5.0 10^3/uL N 3.5-[address] Count .8 [place], [place] [address] [phone] Red Blood Count 4.88 10^6/uL N 4.0-5.4 [...] Nucleated Red Blood Cells % 0 N Comp Metabolic Panel 11/04/2016 [facility] Sodium 134 mmol/L N 133-145 [address] [place] [address] [phone] Potassium 4.4 mmol/L N 3.5-5.0 Chloride 102 [...] N >60 Egfr 63.7 N >60 59 Laboratory test 11/04/2016 [facility] Ach Receptor 0.00 nmol/L N <=0.02 [address] [place] [address] [phone] Laboratory test 09/27/2016 [facility] Cytology SEE RESULT [address] Non-[place] [address] [phone] Laboratory test 09/27/2016 [facility] Surgical SEE RESULT [address] [place] [address] [phone] Body Fluid C&S 05/28/2014 [facility] Body Fluid Cult (SEE NOTE) [address] [address] [phone] Laboratory test 05/28/2014 [facility] Fluid Crystals None Seen N [address] [place] [address] [phone] 1 SEE RESULT BELOW Name: DIYA ASHFORD : [address]: Gonzalo Nunez MD Acct: [id number] Unit: [id number] AGE: 78 Location: [facility] 334-01 Re07/16/18 SEX: M Status: ADM IN SPEC: [id number] BRAD: 07/16/18-[address]: Gonzalo Nunez MD REQ: [id number] RECD: 07/16/18 STATUS: SOUT _ ORDERED: LEVEL 2, LEVEL 5 FINAL DIAGNOSIS 1. Portion of small bowel, excision: -- Benign small intestinal tissue with serosal adhesions. 2. Hernia sac, excision: -- Benign fibromembranous and fibroadipose tissue, compatible with hernia sac. PRE-OPERATIVE DIAGNOSIS Incarcerated umbilical hernia. GROSS DESCRIPTION 1. The specimen is received in formalin labeled, Portion of Small Bowel, and consists of a 5.1 x 2.7 x 2.4 cm irregular intestinal tissue fragment with mild adherent yellow fat and a prominent staple line. The serosa is smooth to slightly shaggy and granular dusky patten-red and focally congested. The mucosa is glistening patten-red with normal folds. Signwriter sections, two cassettes. 2. The specimen is received in formalin labeled, Hernia Sac, and consists of two patten-pink to fontenot irregular to semi-saccular shaggy wrinkled fibromembranous tissue fragments measuring 3.2 x 2.9 by up to 0.8 cm and 4.3 by up to 2.4 x 0.5 cm. Signwriter sections, one cassette. Signed by and Reported on: Sunita Landa MD 07/17/18 1523 END OF REPORT DEPARTMENT OF PATHOLOGY, [address] [place] [address] Favian Templeton M.D. Director [facility] # [id number] 2 GENERAL ILLNESS 3 Critical Result HGB:5.4 Called to and read back by: [id number] at: 06/03/2018 20:30:56 by:[id number] 4 Because ethnic data is not always readily [...] 15-29 5 Kidney failure <15 (or dialysis) 5 SEE RESULTS BELOW [id number] ON PC TRANSFUSED 06/05/18 1714 [id number] AN PC TRANSFUSED 06/04/18 0537 [id number] OP PC TRANSFUSED 06/04/18 0931 [id number] AP PC TRANSFUSED 06/04/18 0035 [id number] AP PC TRANSFUSED 06/03/18 2113 6 SEE RESULT BELOW Name: DIYA ASHFORD : [address]: Maryjo Arriaga MD Acct: [id number] Unit: [id number] AGE: 78 Location: ICU [id number] Re04/20/18 Dis: 04/22/18 SEX: M Status: DIS IN SPEC: [id number] BRAD: 04/20/[address] [facility] [address]: Cristina Hramon MD REQ: [id number] RECD: 04/20/18 STATUS: TUNDE SALINAS DR: Luis [...] by and Reported on: Favian Templeton MD 1651 END OF REPORT DEPARTMENT OF PATHOLOGY, [address], [place], [place] [address] Favian Templeton M.D. Director [facility] # [id number] 7 Desirable: <150 Borderline High: 150-199 High: 200-499 Very High: >500 8 Desirable: <200 Borderline High: 200-239 High: >239 9 Low: <40 Desirable: 40-60 High: >60 10 Desirable: <100 Near Optimal: 100-129 Borderline High: 130-159 High: 160-189 Very High: >189 11 Desirable: <100 Near Optimal: 100-129 Borderline High: 130-159 High: 160-189 Very High: >189 12 Because ethnic data is not always readily [...] 15-29 5 Kidney failure <15 (or dialysis) 13 SEE RESULT BELOW Name: DIYA ASHFORD : [address]: Angelic Olmedo MD Acct: [id number] Unit: [id number] AGE: 77 Location: [facility] Re10/13/17 SEX: M Status: REG REF SPEC: [id number] BRAD: 10/13/[address] [facility] [address]: Angelic Olmedo MD REQ: [id number] RECD: 10/13/17 STATUS: JOVANI JAMESHR DR: Franklyn Johnston MD _ SOURCE: STOOL SPDESC: ORDERED: Occult Bl, Diag Procedure Result Reported Site Stool Occult Blood (1) Final 10/13/17- 1415 ML Stool Occult Blood Positive Collection Date (1) 10/13/17 * ML - Main Lab . END OF REPORT DEPARTMENT OF PATHOLOGY, [address] [place] [address] Favian Templeton M.D. Director [facility] # [id number] 14 Because ethnic data is not always [...] 5 Kidney failure <15 (or dialysis) 15 Because ethnic data is not always readily [...] 15-29 5 Kidney failure <15 (or dialysis) 16 >100 to <200 pg/mL: likely compensated congestive heart failure (CHF) 200 to 400 pg/mL: likely moderate CHF >400 pg/mL: likely moderate to severe CHF [address] Moreno by [id number] at 1734 on 09/26/17. Results read back accurately. 18 Because ethnic data is not always readily [...] 15-29 5 Kidney failure <15 (or dialysis) 19 Negative result does not rule out HIV infection. If acute HIV infection is suspected in a high-risk individual, submit plasma specimen for HIV-1 RNA quantification test (HIVDQ) and/or HIV-2 DNA/RNA test (FHV2Q). Test Performed by: [facility] [place] [address] 20 Test Result Flag Unit RefValue Strongyloides Ab, IgG, S Negative Negative No detectable levels of IgG antibodies to Strongyloides. Repeat testing in 1-2 weeks if clinically indicated. Test Performed by: [facility] [place] [address] 21 If clinical suspicion persists, submit new specimen for retesting in 1 to 2 weeks. Test Performed by: [facility] [place] [address] 22 If clinical suspicion persists, submit new specimen for retesting in 1 to 2 weeks. Test Performed by: [facility] [place] [address] 23 If clinical suspicion persists, submit new specimen for retesting in 1 to 2 weeks. Test Performed by: [facility] [place] [address] 24 If clinical suspicion persists, submit new specimen for retesting in 1 to 2 weeks. Test Performed by: [address] [address] 25 If clinical suspicion persists, submit new specimen for retesting in 1 to 2 weeks. Test Performed by: [address] [address] 26 If clinical suspicion persists, submit new specimen for retesting in 1 to 2 weeks. Test Performed by: [address] [address] 27 If clinical suspicion persists, submit new specimen for retesting in 1 to 2 weeks. Test Performed by: [address] [address] 28 If clinical suspicion persists, submit new specimen for retesting in 1 to 2 weeks. Test Performed by: [address] [address] 29 If clinical suspicion persists, submit new specimen for retesting in 1 to 2 weeks. Test Performed by: [address] [address] 30 If clinical suspicion persists, submit new specimen for retesting in 1 to 2 weeks. Test Performed by: [address] [address] 31 If clinical suspicion persists, submit new specimen for retesting in 1 to 2 weeks. Test Performed by: [address] [address] 32 If clinical suspicion persists, submit new specimen for retesting in 1 to 2 weeks. Test Performed by: [address] [address] 33 If clinical suspicion persists, submit new specimen for retesting in 1 to 2 weeks. Test Performed by: [address] [address] 34 If clinical suspicion persists, submit new specimen for retesting in 1 to 2 weeks. Test Performed by: [address] [address] 35 If clinical suspicion persists, submit new specimen for retesting in 1 to 2 weeks. Test Performed by: [address] [address] 36 If clinical suspicion persists, submit new specimen for retesting in 1 to 2 weeks. Test Performed by: [address] [address] 37 If clinical suspicion persists, submit new specimen for retesting in 1 to 2 weeks. Test Performed by: [facility] - [address] [address] Test Performed by: [facility] - [address] [address] 39 SEE RESULT BELOW Name: DIYA ASHFORD : [address]: Timmy Montoya MD Acct: [id number] Unit: [id number] AGE: 76 Location: Re12/02/16 SEX: M Status: REG REF SPEC: [id number] BRAD: 12/02/16-14[address] [facility] [address]: Timmy Montoya MD REQ: [id number] RECD: 12/02/16-1440 STATUS: TUNDE SALINAS DR: Isaac Salazar MD [...] performed at Main Lab DEPARTMENT OF PATHOLOGY, [address] [place] [address] Favian Templeton M.D. Director [facility] # [id number] 40 SEE RESULT BELOW Name: DIYA ASHFORD : [address]: Timmy Montoya MD Acct: [id number] Unit: [id number] AGE: 76 Location: Re12/02/16 SEX: M Status: REG REF SPEC: [id number] BRAD: 12/02/16-[address] [facility] [address]: Timmy Montoya MD REQ: [id number] RECD: 12/02/16 STATUS: TUNDE SALINAS DR: Ari Salazar MD _ ORDERED: Decal, LEVEL 4/2, IMMUNO-FIRST, IMMUNO-ADDL/2, SPEC ST NON-ORG/2 Plasma cell disease has been performed at [facility], [place], [place]. The testing reveals: Specimen: Bone marrow. [...] pathologic correlation is recommended. Test Performed by: [facility] - [address] [address] CONTINUED ON NEXT PAGE * ML=Testing performed at [facility] DEPARTMENT OF PATHOLOGY, [address] [place] [address] Favian Templeton M.D. Director [facility] # [id number] RUN DATE: 12/14/16 [facility] LAB LIVE PAGE 2 Patient: DIYA ASHFORD [id number] (Continued) ADDENDUM (Continued) Addendum Signed (signature on file) Sunita Landa MD 1043 B-cell lymphoma has been performed at [place], [place]. The testing reveals: Specimen: Bone marrow. Method: Locus and probes [Strategy;#Nuclei;Class] 3q27(3'BCL6,5'BCL6) [BAP;200;ASR] 8q24(5'MYC,3'MYC) [BAP;200;ASR] 11q13(CCND1-XT),14q32(IGH-XT) [DFISH;500;ASR] 17p13(TP53),17CEN(D17Z1) [COPY#;200;ASR] 18q21(5'MALT1,3'MALT1) [BAP;200;ASR] 18q21(5'BCL2,3'BCL2) [BAP;200;ASR] Probe strategies include: DFISH=dual color, double fusion; BAP=break-apart probe; COPY#=region gain and loss. Result: Interphase FISH is normal for all loci studied. Result Summary: Normal Result Table: Abnormality Name Result %Abn Cutoff (%) 8q24.1(MYC sep) Normal <6.5% -17p13.1(TP53x1,P21T1w9) Normal <9.5% -17(TP53,D17Z1)x1 Normal <5.5% 18q21(MALT1 sep) [...] performed at Main Lab DEPARTMENT OF PATHOLOGY, [address] [place] [address] Favian Templeton M.D. Director [facility] # [id number] RUN DATE: 12/14/16 [facility] LAB LIVE PAGE 3 Patient: YUSRASTEFANODIYA [id number] (Continued) ADDENDUM (Continued) Additional cytogenetic studies are reported separately. Test Performed by: [address] [address] Addendum Signed (signature on file) Favian Templeton [...] performed at Main Lab DEPARTMENT OF PATHOLOGY, [address] [place] [address] Favian Templeton M.D. Director [facility] # [id number] RUN DATE: 12/14/16 [facility] LAB LIVE PAGE 4 Patient: YUSRASTEFANODIYA [id number] (Continued) SPECIAL STUDIES (Continued) SPECIAL STUDIES Flow cytometry has been performed at [facility], [place], [place]. The testing reveals: FINAL DIAGNOSIS: Specimen Source: Right posterior iliac crest bone marrow Flow cytometry immunophenotypic analysis: Interpretative data: Lambda light chain restricted, CD19 positive, CD10 negative B-cell population detected (4% of WBCs, 19% of gated lymphocytes). [place] light chain restricted plasma cells, (less than [...] MD 12/05/16 1452 Technical component performed by: [place] [address] Software Project Lead: Jamie Porter II, MD, PhD. CONTINUED ON NEXT PAGE * ML=Testing performed at Main Lab DEPARTMENT OF PATHOLOGY, [address] [place] [address] Favian Templeton M.D. Director [facility] # [id number] RUN DATE: 12/14/16 [facility] LAB LIVE PAGE 5 Patient: DIYA ASHFORD [id number] (Continued) PRE-OPERATIVE DIAGNOSIS (Continued) PRE-OPERATIVE DIAGNOSIS D47.2 [...] ON NEXT PAGE * ML=Testing performed at [facility] DEPARTMENT OF PATHOLOGY, [address] [place] [address] Favian Templeton M.D. Director [facility] # [id number] RUN DATE: 12/14/16 [facility] LAB LIVE PAGE 6 Patient: DEJONDIYA Анна [id number] (Continued) MICROSCOPIC DESCRIPTION (Continued) Signed (signature on file) Favian Templeton MD 1547 END OF REPORT * ML=Testing performed at Main Lab DEPARTMENT OF PATHOLOGY, [address] [place] [address] Favian Templeton M.D. Director [facility] # [id number] 41 FINAL DIAGNOSIS: Specimen Source: Right posterior iliac crest bone marrow Flow cytometry immunophenotypic analysis: Interpretative data: Lambda light chain restricted, CD19 positive, CD10 negative B-cell population detected (4% of WBCs, 19% of gated lymphocytes). [place] light chain restricted plasma cells, (less than [...] Electronically signed by: Favian Templeton MD 12/05/16 7232 Technical component performed by: [facility] [place] [address] Software Project Lead: Jamie Porter II, MD, PhD. 42 RESULT: Monoclonal gammopathy, Hyperlipidemia, unspecified 43 Locus and probes [Strategy;#Nuclei;Class] 3q27(3'BCL6,5'BCL6) [BAP;200;ASR] 8q24(5'MYC,3'MYC) [BAP;200;ASR] 11q13(CCND1-XT),14q32(IGH-XT) [DFISH;500;ASR] 17p13(TP53),17CEN(D17Z1) [COPY#;200;ASR] 18q21(5'MALT1,3'MALT1) [BAP;200;ASR] 18q21(5'BCL2,3'BCL2) [BAP;200;ASR] Probe strategies include: DFISH=dual color, double fusion; BAP=break-apart probe; COPY#=region gain and loss. 44 RESULT: Interphase FISH is normal for all loci studied. 45 Abnormality Name Result %Abn Cutoff (%) 8q24.1(MYC sep) Normal <6.5% -17p13.1(TP53x1,H68Q0e2) Normal <9.5% -17(TP53,D17Z1)x1 Normal <5.5% 18q21(MALT1 sep) Normal <3.5% 18q21(BCL2 sep) Normal <5.5% 3q27(BCL6 sep) Normal <3.5% t(11;14) CCND1-XT/IGH-XT fusion Normal <0.6% 46 This result is within normal limits for the B-cell lymphoma FISH panel. A normal FISH result does not exclude the presence of lymphoma in the bone marrow. Clinical and pathologic correlation is suggested. Additional cytogenetic studies are reported separately. 47 Previous Studies DATE SPECIMEN RESULT 01/26/2015 Marrow Plasma cell FISH abnormal 48 RESULT: Franklyn Pete M.D., Ph.D. Test Performed by: [address] [address] 49 Applicable to Analyte Specific Reagent (ASR) and Laboratory Developed Tests (LDT). This test was developed and its performance characteristics determined by [facility] in a manner consistent with CLIA requirements. It has not been cleared or approved by the U.S. Food and Drug Administration. This FISH test does not rule out other chromosome abnormalities. 50 RESULT: Monoclonal gammopathy, Hyperlipidemia, unspecified 51 Locus and probes [Strategy;#Nuclei;Class] 1p36.3(TP73),1q22 [COPY#;50;LDT] 8q24(5'MYC,3'MYC) [BAP;50;ASR] 11q13(CCND1-XT),14q32(IGH-XT) [DFISH;50;ASR] Probe strategies include: DFISH=dual color, double fusion; BAP=break-apart probe; COPY#=region gain and loss. 52 Abnormality Name Result # Abn Total Cells t(11;14) CCND1-XT/IGH-XT Abnormal 6 9 fusion +11(CCND1-XTx3) Normal 0 9 53 RESULT: nuc simon(CCND1-XT,IGH-XT)x3(CCND1-XT con IGH-XTx2) 54 The result is abnormal and indicates a [...] recommended. Additional cytogenetic studies are reported separately. 55 Previous Studies DATE SPECIMEN RESULT 01/26/2015 Marrow Plasma cell FISH abnormal 56 Applicable to Analyte Specific Reagent (ASR) and Laboratory Developed Tests (LDT). This test was developed and its performance characteristics determined by [facility] in a manner consistent with CLIA requirements. It has not been cleared or approved by the U.S. Food and Drug Administration. This FISH test does not rule out other chromosome abnormalities. 57 RESULT: Della Bell D.O. Test Performed by: [address] [address] 58 SEE RESULT BELOW Name: DIYA ASHFORD : [address]: Ari Salazar MD Acct: [id number] Unit: [id number] AGE: 76 Location: [facility] Re11/04/16 SEX: M Status: REG REF SPEC: [id number] BRAD: 11/04/16-[address] [facility] [address]: Isaac Ruiz MD REQ: [id number] RECD: 11/04/167291 STATUS: TUNDE SALINAS DR: Franklyn Guillen MD [...] performed at Main Lab DEPARTMENT OF PATHOLOGY, [address] [place] [address] Favian Templeton M.D. Director [facility] # [id number] 59 Because ethnic data is not always [...] 5 Kidney failure <15 (or dialysis) 60 ADDITIONAL INFORMATION This test was developed and its performance characteristics determined by [facility] in a manner consistent with CLIA requirements. This test has not been cleared or approved by the U.S. Food and Drug Administration. Test Performed by: [facility] - [address], [place] [address] 61 SEE RESULT BELOW Name: DIYA ASHFORD : [address]: Gonzalo Nunez MD Acct: [id number] Unit: [id number] AGE: 76 Location: [facility] 332- Re09/27/16 SEX: M Status: ADM Kiel SPEC: [id number] BRAD: 09/27/16-[address]: Gonzalo Nunez MD REQ: [id number] RECD: 09/27/16 STATUS: SOUT _ ORDERED: THIN PREP NON G FINAL DIAGNOSIS Peritoneal fluid: -- Negative for malignant cells. -- Mixed lymphoid elements, macrophages and scattered mesothelial elements only. 1. PERITONEAL - PERITONEAL FLUID GROSS DESCRIPTION 35 mls of cloudy yellow/green fluid. Signed (signature on file) Favian Templeton MD 1327 END OF REPORT * ML=Testing performed at Main Lab DEPARTMENT OF PATHOLOGY, [address] [place] [address] Favian Templeton M.D. Director [facility] # [id number] 62 SEE RESULT BELOW Name: DIYA ASHFORD : [address]: Gonzalo Nunez MD Acct: [id number] Unit: [id number] AGE: 76 Location: [facility] 332-01 Re09/27/16 Dis: 09/28/16 SEX: M Status: DIS Kiel SPEC: [id number] BRAD: 09/27/16- SUBM DR: Gonzalo Nunez MD REQ: [id number] RECD: 09/27/16 STATUS: SOUT _ ORDERED: TRICHROME [...] and the wall thickness averages 0.1 cm. Signwriter sections, one cassette. 2. The specimen is received in formalin labeled, Liver Biopsy, and consists of a 1.5 x 0.1 CONTINUED ON NEXT PAGE * ML=Testing performed at Main Lab DEPARTMENT OF PATHOLOGY, [address] [place] [address] Favian Templeton M.D. Director [facility] # [id number] RUN DATE: 09/29/16 [facility] LAB LIVE PAGE 2 Patient: DEJONDIYA Анна [id number] (Continued) GROSS DESCRIPTION (Continued) GROSS DESCRIPTION (Continued) cm patten soft tissue core admixed with scant red-brown blood clot. Entirely submitted, one cassette. Signed (signature on file) Favian Templeton MD 1647 END OF REPORT * ML=Testing performed at Main Lab DEPARTMENT OF PATHOLOGY, [facility] [place] [address] Favian Templeton M.D. Director [facility] # [id number] RUN DATE: 06/01/14 [facility] LAB LIVE PAGE 1 RUN TIME: 08 [facility] [address] [place], [place] [address] Specimen Inquiry Name: DIYA ASHFORD : [address]: Dominic Jensen MD Acct: [id number] Unit: [id number] AGE: 74 Location: [facility] Re05/28/14 SEX: M Status: REG REF SPEC: [id number] BRAD: 05/28/[address] [facility] [address]: Dominic Jensen MD REQ: [id number] RECD: 05/28/14 STATUS: COMP _ SOURCE: JOINT FLUI SPDESC:KNEE LEFT ORDERED: BF Cult/GS Procedure Result Verified Site Body Fluid Gram Stain Final 05/28/14- 1055 ML 4+ Neutrophils No Organisms Seen BY CENTRIFUGED SMEAR Body Fluid Culture Final 06/01/14- 0815 ML No Growth Day 4 END OF REPORT * ML=Testing performed at Main Lab DEPARTMENT OF PATHOLOGY, [address] [place] [address] Favian Templeton M.D. Director [facility] # [id number] 64 Synovial (Joint) Fluid Procedures Date Code Description Status 07/27/2018 96285 Pace Maker Eval W/Iterative Adjment Dual Lead Completed 07/16/2018 13323 Repair Hernia Umbilical > 5 Yrs, Incarcerated Or Completed Strangulated 07/16/2018 62344 Enterectomy Resect Small Intestine W/Anastomosis (Single Completed Resect) 07/05/2018 00046 ECHO Transthorasic Realtime 2D W Doppler & Color Flow Hosp Completed 06/12/2018 17487 Abdominal Paracentesis W/Imaging Guidance Completed 05/06/2018 58443 Insertion Intravasular Vena Cava Filter,Endovascular Completed Approach 05/05/2018 23035 EKG, Interpretation Only Completed 04/06/2018 82483 EKG Tracing & Interpretation Completed 03/14/2018 36198 Treadmill Interp/Report Only Completed 03/14/2018 14566 Stress Test Supervsn W/Out I/R Completed 03/08/2018 06394 EKG Tracing & Interpretation Completed 02/27/2018 81096 EKG Tracing & Interpretation Completed 02/22/2018 42659 EKG Tracing & Interpretation Completed 02/22/2018 28122 Pace Maker Eval W/Iterative Adjment Dual Lead Completed 02/22/2018 17307 Pace Maker Eval W/Iterative Adjment Dual Lead Completed 12/07/2017 26462 EKG Tracing & Interpretation Completed 11/30/2017 60247 Treadmill Interp/Report Only Completed 11/30/2017 42530 Stress Test Supervsn W/Out I/R Completed 10/10/2017 96006 Stress Test Completed 10/10/2017 00833 Myocardial Perfusion Imaging Tomographic (Spect) Multiple Completed Studies 10/03/2017 04162 EKG Tracing & Interpretation Completed 09/29/2017 34547 ECHO Transthorasic Realtime 2D W Doppler & Color Flow Hosp Completed 09/29/2017 96814 EKG, Interpretation Only Completed 09/28/2017 76104 Revascularization Acute Total/Subtotal Occlusion Completed 09/28/2017 25310 EKG, Interpretation Only Completed 09/28/2017 20995 Interrogation Device Eval In Person W/DR Completed Analysis,Single,Dual,Mul 09/28/2017 90207 Cath PLMT&NJX L Ventriculog Img S&I Completed 09/27/2017 44013 EKG, Interpretation Only Completed 09/25/2017 34552 EKG, Interpretation Only Completed 09/25/2017 36212 Removal With Replacement Dual Lead System Pulse Generator Completed 09/24/2017 09643 Interrogation Device Eval In Person W/DR Completed Analysis,Single,Dual,Mul 09/22/2017 14776 ECHO Transthorasic Realtime 2D W Doppler & Color Flow Hosp Completed 09/22/2017 22678 EKG, Interpretation Only Completed 09/22/2017 41009 EKG, Interpretation Only Completed 02/23/2017 69114 ECHO Transthorasic Realtime 2D W Doppler & Color Flow Hosp Completed 11/04/2016 63707 Catheter Placement Venous Second Order Branch Completed 11/04/2016 01129 Transcatheter Biopsy Completed 11/04/2016 78302 Venography Liver W/Hemodynamic Evaluation Completed 11/04/2016 25396 Transcatheter Biopsy Radiology Completed 11/04/2016 02371 Ultrasound Guidance For Vascular Access Completed 09/27/2016 32270 Laparoscopy Cholecystectomy Completed 09/27/2016 28343 Laparoscopy Cholecystectomy Completed 09/27/2016 91571 Biopsy Liver W/Other Major Procedure Completed 05/28/2014 56697 Rad Exam; Knee, Ap&L Completed 05/28/2014 09155 Rad Exam; Knee, Ap&L Completed 05/28/2014 84308 Rad Exam; Pelvis Completed 02/03/2012 28472 Rad Exam; Foot Comp Completed Encounters Type Date Location Provider Dx Diagnosis Office Visit 07/19/2018 [facility] Maryjo Arriaga, K42.0 Umbilical hernia 8:01a agustina Workman M.D. with obstruction, Hospitalists without gangrene N18.3 Chronic kidney disease, stage 3 (moderate) D62 Acute posthemorrhagic anemia Office Visit 07/18/2018 [facility] Maryjo Arriaga, K42.0 Umbilical hernia 8:00a agustina Workman M.D. with obstruction, Hospitalists without gangrene D62 Acute posthemorrhagic anemia N18.4 Chronic kidney disease, stage 4 (severe) K74.69 Other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 liver R79.89 Other specified abnormal findings of blood chemistry Office Visit 07/17/2018 7:59a [facility] Patrick Mena E87.2 Acidosis M.D. Office Visit 07/17/2018 7:58a [facility] Maryjo Arriaga, K42.0 Umbilical agustina Workman M.D. hernia with Hospitalists obstruction, without gangrene N18.4 Chronic kidney disease, stage 4 (severe) K74.69 Other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 liver R79.89 Other specified abnormal findings of blood chemistry Office Visit 07/16/2018 7:57a [facility] Bryan K42.0 Umbilical hernia Assocagustina M.D. 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 of liver Hospitalists K72.90 Hepatic failure, unspecified without coma D70.9 Neutropenia, unspecified D64.9 Anemia, unspecified Z95.0 Presence of cardiac pacemaker Z95.5 Presence of coronary angioplasty implant and graft Office Visit 07/07/2018 [facility] K72.90 Hepatic failure, 8:49a agustina Workman M.D. unspecified Hospitalists without coma R79.89 Other specified abnormal findings of blood chemistry D70.9 Neutropenia, unspecified K74.69 Other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 liver D64.9 Anemia, unspecified I82.431 Acute embolism and thrombosis of right popliteal vein Z95.0 Presence of cardiac pacemaker Z95.5 Presence of coronary angioplasty implant and graft Office Visit 07/06/2018 [facility] K72.90 Hepatic failure, 8:49a agustina Workman M.D. unspecified Hospitalists without coma R79.89 Other specified abnormal findings of blood chemistry D70.9 Neutropenia, unspecified K74.69 Other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 liver D64.9 Anemia, unspecified I82.431 Acute embolism and thrombosis of right popliteal vein G47.33 Obstructive sleep apnea (adult) (pediatric) Z95.0 Presence of cardiac pacemaker Z95.5 Presence of coronary angioplasty implant and graft Office Visit 07/05/2018 [facility] Jose Miguel K72.90 Hepatic failure, 8:49a Assoc,agustina Gill M.D. 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 N18.4 Chronic kidney disease, stage 4 (severe) I82.431 Acute embolism and thrombosis of right popliteal vein Office Visit 06/30/2018 8:11a [facility] Luis Manuel Edwards, R10.13 Epigastric pain Assoc,agustina MEZA Hospitalists K92.2 Gastrointestinal hemorrhage, unspecified R11.0 Nausea Office Visit 06/29/2018 [facility] Maryjo Arriaga, R07.9 Chest pain, 8:11a Assoc,agustina Otto unspecified Hospitalists R06.02 Shortness of breath K92.2 Gastrointestinal hemorrhage, unspecified E83.42 Hypomagnesemia Office Visit 06/25/2018 9:06a [facility] Gertrudis K76.6 Portal Assoc,agustina Cano D.O. 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, complete Irrigating Pump Operator Z95.0 Presence of cardiac pacemaker Z98.61 Coronary angioplasty status K92.2 Gastrointestinal hemorrhage, unspecified Office Visit 06/24/2018 [facility] Gertrudis K92.2 Gastrointestinal 9:05a Assoc,pc Marya Cano hemorrhage, Hospitalists unspecified I25.10 [facility] heart disease of [place] coronary artery w/o ang pctrs K72.90 Hepatic failure, unspecified without coma D62 Acute posthemorrhagic anemia N18.9 Chronic kidney disease, unspecified K76.6 Portal hypertension Office Visit 06/23/2018 4:33p [facility] Angelic Olmedo, Z98.61 [facility]ary [facility] [place] angioplasty status K62.5 Hemorrhage of anus and rectum Office Visit 06/23/2018 [facility] K92.2 Gastrointestinal 9:05a Assoc,agustina Moncada N.P. hemorrhage, Hospitalists unspecified I25.10 [facility] heart disease of [place] coronary artery w/o ang pctrs K72.90 Hepatic failure, unspecified without coma Office Visit 06/16/2018 8:20a [facility], K74.69 Other cirrhosis Assocagustina M.D. of liver Hospitalists K51.411 Inflammatory polyps of colon with rectal bleeding Office Visit 06/15/2018 [facility], K72.90 Hepatic failure, 8:20a Assocagustina M.D. unspecified Hospitalists without coma K74.69 Other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 liver K51.411 Inflammatory polyps of colon with rectal bleeding N18.4 Chronic kidney disease, stage 4 (severe) D62 Acute posthemorrhagic anemia Office Visit 06/14/2018 [facility], K72.90 Hepatic failure, 8:20a Assagustina chiang M.D. unspecified Hospitalists without coma K74.69 Other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 liver D62 Acute posthemorrhagic anemia K51.411 Inflammatory polyps of colon with rectal bleeding N18.4 Chronic kidney disease, stage 4 (severe) Office Visit 06/13/2018 [place] Angelic Olmedo, I44.2 Atrioventricular 12:14p [facility] [place] block, complete Irrigating Pump Operator I25.10 [facility] heart disease of [place] coronary artery w/o ang pctrs Z95.0 Presence of cardiac pacemaker Z98.61 Coronary angioplasty status Office Visit 06/13/2018 [facility], K72.90 Hepatic failure, 8:19a Assocagustina M.D. unspecified Hospitalists without coma K74.69 Other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 liver N18.4 Chronic kidney disease, stage 4 (severe) K51.411 Inflammatory polyps of colon with rectal bleeding Office Visit 06/12/2018 [facility] Maryjo Arriaga, K72.90 Hepatic failure, 8:19a Assagustina chiang M.D. unspecified Hospitalists without coma K74.69 Other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 liver N18.4 Chronic kidney disease, stage 4 (severe) K51.411 Inflammatory polyps of colon with rectal bleeding Office Visit 06/11/2018 [facility] Donteargelia Nicholson K72.90 Hepatic failure, 8:18a Assocagustina MD unspecified Hospitalists without coma K74.69 Other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 liver N18.9 Chronic kidney disease, unspecified Office Visit 06/10/2018 8:18a [facility] Irmawendie Ruiz, K72.90 Hepatic failure, Assagustina chiang MD unspecified Hospitalists without coma K74.69 Other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 liver N18.4 Chronic kidney disease, stage 4 (severe) D64.9 Anemia, unspecified Office Visit 06/06/2018 8:34a [facility] Luis Manuel Edwards, D64.9 Anemia, Assocagustina MD unspecified Hospitalists K74.69 Other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 liver R18.8 Other ascites K51.411 Inflammatory polyps of colon with rectal bleeding Office Visit 06/05/2018 8:34a [facility] Luis Manuel Edwards, D62 Acute posthemorrhagic Assagustina chiang MD anemia Hospitalists R18.8 Other ascites I25.10 [facility] heart disease of [place] coronary artery w/o ang pctrs N18.4 Chronic kidney disease, stage 4 (severe) K74.69 Other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 liver Office Visit 06/04/2018 [facility] Donteargelia Nicholson D64.9 Anemia, 8:33a Assocagustina MD unspecified Hospitalists K74.69 Other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 liver R18.8 Other ascites K51.411 Inflammatory polyps of colon with rectal bleeding I25.10 [facility] heart disease of [place] coronary artery w/o ang pctrs Office Visit 06/03/2018 8:33a [facility] Irma Ruiz, D62 Acute posthemorrhagic Assocagustina MD anemia Hospitalists I25.10 [facility] heart disease of [place] coronary artery w/o ang pctrs K74.69 Other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 liver N18.4 Chronic kidney disease, stage 4 (severe) K51.411 Inflammatory polyps of colon with rectal bleeding Office Visit 05/07/2018 [facility] Liz K92.2 Gastrointestinal 8:29a Assoc,agustina Aguilar, DO hemorrhage, Hospitalists unspecified D62 Acute posthemorrhagic anemia I82.401 Acute embolism and thombos unsp deep veins of r low extrem K74.69 Other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 liver D47.2 Monoclonal gammopathy N18.9 Chronic kidney disease, unspecified Office Visit 05/06/2018 [facility] Nichelle K92.2 Gastrointestinal 8:28a Assoc,agustina Lagunas, DO hemorrhage, Hospitalists unspecified I95.0 Idiopathic hypotension N18.9 Chronic kidney disease, unspecified K74.69 Other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 liver G47.33 Obstructive sleep apnea (adult) (pediatric) Office Visit 05/05/2018 [facility] Donte Nicholson K92.2 Gastrointestinal 8:28a agustina Workman MD hemorrhage, Hospitalists unspecified I95.0 Idiopathic hypotension D64.9 Anemia, unspecified K74.69 Other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 liver N18.3 Chronic kidney disease, stage 3 (moderate) D47.2 Monoclonal gammopathy Office Visit 05/04/2018 [facility] Donte Nicholson K92.2 Gastrointestinal 8:27a agustina Workman MD hemorrhage, Hospitalists unspecified K74.69 Other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 liver N18.9 Chronic kidney disease, unspecified D64.9 Anemia, unspecified Office Visit 05/03/2018 [facility] Donte Nicholson K92.2 Gastrointestinal 8:27a agustina Workman MD hemorrhage, Hospitalists unspecified N18.9 Chronic kidney disease, unspecified G47.33 Obstructive sleep apnea (adult) (pediatric) D64.9 Anemia, unspecified K74.69 Other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 liver Office Visit 05/02/2018 8:26a [facility] Romel Moncada, K92.1 agustina Roca Hospitalists N.P. N18.9 Chronic kidney disease, unspecified G47.33 Obstructive sleep apnea (adult) (pediatric) Office Visit 04/22/2018 [facility] Jamie K92.2 Gastrointestinal 7:54a Assoc,pc Joel, PA hemorrhage, Hospitalists unspecified N18.9 Chronic kidney disease, unspecified G47.33 Obstructive sleep apnea (adult) (pediatric) R18.8 Other ascites Office Visit 04/21/2018 [facility] Jamie K92.2 Gastrointestinal 7:52a Assoc,agustina Maldonado, PA hemorrhage, Hospitalists unspecified D64.9 Anemia, unspecified N18.9 Chronic kidney disease, unspecified G47.33 Obstructive sleep apnea (adult) (pediatric) Office Visit 04/20/2018 [facility] Jamie K92.2 Gastrointestinal 7:51a Assoc,pc Joel, PA hemorrhage, Hospitalists unspecified D64.9 Anemia, unspecified R18.8 Other ascites N18.9 Chronic kidney disease, unspecified E78.5 Hyperlipidemia, unspecified G47.33 Obstructive sleep apnea (adult) (pediatric) Office Visit 04/19/2018 7:50a [facility] Assандрей,KATIE Alcantar K92.1 Melena Hospitalists N18.9 Chronic kidney disease, unspecified D47.2 Monoclonal gammopathy I25.10 Athscl heart disease of [place] coronary artery w/o ang pctrs Office Visit 04/06/2018 9:00a Pulmonology And Miriam G47.33 Obstructive sleep Sleep Services Of MD Annmarie apnea (adult) [facility] (pediatric) Office Visit 04/06/2018 4:20p [facility] Angelic Olmedo, I25.10 Athscl heart Of Irrigating Pump Operator M.D. disease of [place] coronary artery w/o ang pctrs Z95.0 Presence of cardiac pacemaker I95.9 Hypotension, unspecified K76.6 Portal hypertension Office Visit 03/23/2018 4:20p [facility] Angelic Olmedo, I25.119 Athscl heart Of Irrigating Pump Operator M.D. disease of [place] cor art w unsp ang pctrs Z01.810 Encounter for preprocedural cardiovascular examination Z95.0 Presence of cardiac pacemaker K74.60 Unspecified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 liver Office Visit 03/08/2018 1:30p [facility] Angelic Olmedo, I25.119 Athscl heart Of [facility] M.D. 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 peptic ulcer, site unsp, with hemorrhage I21.4 Non-St elevation (Nstemi) myocardial infarction I25.10 Athscl heart disease of [place] coronary artery w/o ang pctrs Office Visit 10/18/2017 [facility] K92.2 Gastrointestinal 1:59p Assoc,pc Greenwood, [employer] hemorrhage, Hospitalists unspecified D62 Acute posthemorrhagic anemia R06.02 Shortness of breath I25.118 Athscl heart disease of [place] cor art w ot ang pctrs Office Visit 10/17/2017 [facility] K92.2 Gastrointestinal 1:58p Assoc,pc Karl, [employer] hemorrhage, Hospitalists unspecified D62 Acute posthemorrhagic anemia I25.118 Athscl heart disease of [place] cor art w ot ang pctrs R06.02 Shortness of breath Office Visit 10/16/2017 10:32a [facility] Burak Montague I25.10 Athscl heart Of Ronal Greenfield M.D. disease of [place] coronary artery w/o ang pctrs K92.2 Gastrointestinal hemorrhage, unspecified Office Visit 10/16/2017 [facility] Renetta K92.2 Gastrointestinal 1:57p Assoc,pc Pradip hemorrhage, Hospitalists DARLENE Cuevas unspecified D62 Acute posthemorrhagic anemia I25.118 Athscl heart disease of [place] cor art w ot ang pctrs R06.02 Shortness of breath Office Visit 10/04/2017 1:20p [facility] Patrick Joshua Z48.1 Encounter for Cardiology Of [place], DESTINY, planned Irrigating Pump Operator AT [facility] postprocedural wound closure I21.4 Non-St elevation (Nstemi) myocardial infarction N18.3 Chronic kidney disease, stage 3 (moderate) D64.9 Anemia, unspecified Office Visit 10/03/2017 10:00a [facility] Angelic Olmedo, Z95.0 Presence of Of Ronal Otto cardiac pacemaker I25.119 Athscl heart disease of [place] cor art w unsp ang pctrs K74.60 Unspecified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 liver N18.9 Chronic kidney disease, unspecified D64.9 Anemia, unspecified I21.4 Non-St elevation (Nstemi) myocardial infarction Office Visit 09/29/2017 [facility] Shruti Aden I24.9 Acute ischemic 9:49a Assocagustina NP heart disease, Hospitalists unspecified R74.8 Abnormal levels of other serum enzymes K74.69 Other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 liver R07.89 Other chest pain Office Visit 09/29/2017 11:18a [facility] Angelic Olmedo, I25.10 Athscl heart Of Ronal Otto disease of [place] coronary artery w/o ang pctrs I95.9 Hypotension, unspecified Office Visit 09/28/2017 [facility] Shruti Aden I24.9 Acute ischemic 9:48a Assocagustina NP heart disease, Hospitalists unspecified R74.8 Abnormal levels of other serum enzymes K74.69 Other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 liver Office Visit 09/27/2017 9:24a [facility] Shruti Tonoalena R07.89 Other chest Assoc,pc Yareli, [employer] pain Hospitalists R74.8 Abnormal levels of other serum enzymes K74.69 Other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 liver Office Visit 09/27/2017 [facility] Gastroenterology Margarita Singh, K76.6 Portal 7:30a MD hypertension Office Visit 09/27/2017 [facility] Of Patrick R79.89 Other specified 9:52a Irrigating Pump Operator AT [facility] Stefek, abnormal findings M.DLow, FACC, of blood FSCAI chemistry Office Visit 09/27/2017 [facility] Of Angelic I25.10 Athscl heart 2:37p [facility] Shara, disease of [place] M.D. coronary artery w/o ang pctrs I95.9 Hypotension, unspecified Office Visit 09/26/2017 9:22a [facility] Margarita Echavarria, R07.89 Other chest Assoc,pc Ayaan pain Hospitalists R74.8 Abnormal levels of other serum enzymes K74.69 Other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 liver Office Visit 09/24/2017 3:30p [facility] Yves S. R55 Syncope and Of Irrigating Pump Operator Mena, DO FACC collapse E87.70 Fluid overload, unspecified Z95.0 Presence of cardiac pacemaker Office Visit 09/23/2017 12:32p [facility] Yves S. R55 Syncope and Of Irrigating Pump Operator Mena, DO FACC collapse Z95.0 Presence of cardiac pacemaker Office Visit 09/22/2017 12:34p [facility] Yves S. R55 Syncope and Of Irrigating Pump Operator Mena, DO FACC collapse Z95.0 Presence of cardiac pacemaker Office Visit 09/21/2017 2:30p [facility] Angelic Olmedo, Z95.0 Presence of Of [facility] AT [facility] M.D. 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 (adult) (pediatric) Office Visit 09/27/2016 [facility] Kofi 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,agustina Downs, DARLENE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 Hospitalists liver with ascites G47.33 Obstructive sleep apnea (adult) (pediatric) I10 Essential (primary) hypertension Z90.49 Acquired absence of other specified parts of digestive tract Office Visit 08/10/2016 Surgical Gonzalo Nunez, K80.20 Calculus of 1:30p [facility] , FACS gallbladder w/o cholecystitis w/o obstruction Office Visit 03/01/2016 Pulmonology And Miriam G47.33 Obstructive sleep 9:45a Sleep Services Of MD Annmarie apnea (adult) [facility] (pediatric) K21.9 Gastro-esophageal reflux disease without esophagitis E66.01 Morbid (severe) obesity due to excess calories Office Visit 07/07/2014 9:15a Orthopedic Dominic Jensen 724.4 Neuritis Or Services Of Andre Otto Radiculitis Thoracic Or Lumbosacral Unspec Office Visit 06/30/2014 8:45a Pulmonology And Miriam 327.23 Obstructive Sleep Sleep Services Of MD Annmarie Apnea Adult & [facility] Pediatric 719.46 Pain Joint Lower Leg Office Visit 06/11/2014 Orthopedic Dominic Jensen 715.16 Osteoarthrosis 9:15a Services Of [place] Localized Prim Lower C.M.A. Leg Office Visit 05/28/2014 Orthopedic Dominic Jensen 715.16 Osteoarthrosis 8:00a Services Of [place] Localized Prim Lower C.M.A. Leg Office Visit 03/05/2012 Pushpa Adams 845.10 Sprains & Strains 11:15a Services Of [place] Dee Foot Unspec Site C.M.A. Office Visit 02/10/2012 Orthopedic Bryan 729.5 Pain In Limb 8:15a Services Of [place] Dee C.M.ALow Office Visit 02/03/2012 Pushpa Adams 729.5 Pain In Limb 11:30a Services Of [place] Dee C.M.ALow Plan of Treatment Future Appointment(s):10/29/2018 6:40 am - Pacemaker Schedule at [facility]08/23/2018 3:20 pm - Angelic Olmedo M.D. at [facility]04/08/2019 10:30 am - Miriam Anguiano MD at Pulmonology And Sleep Services Of [facility]07/27/2018 - Jamilah Donaldson, NPK42.0 Umbilical hernia with obstruction, without gangreneFollow up:As tiruwmY13.01 Encounter for change or removal of surgical wound dressing
[2018-08-14] MEDS ORDERED: Ondansetron INJ* 2 MG/ML VIAL IV ONE ×2 (10:24→11:23)
[2018-08-14] MEDS ORDERED: Morphine VIAL* 4 MG/ML VIAL (1 ml vial) IV ONE (11:22)
--- NOTE | 2018-08-14 11:35 | ED ---
Complex/Multi-Sys Presentation - HPI Summary HPI Summary: Patient presents with multiple symptoms. He reports yesterday afternoon he developed acute abdominal pain along with nausea and vomiting and chills with rigors. This lasted into the evening. He no longer feels nauseous nor is he vomited today but feels wiped out and has no appetite. Ab pain continues - ranges from 6-9/10 and location is wandering. Feels wiped out and has oral dryness. He's had loose stools however this is normal for him as he takes lactulose daily for liver failure of unknown origin per pt (chart reveals cirrhosis). Denies hematochezia, melena. Had TIPS procedure in the past at [facility]. Currently follows with Dr. Ruiz. He has also had intermittent courses of Lasix. reports they received a phone call today to restart this - he has not taken yet today but admits his abdomen is quite distended and he thinks he needs a paracentesis. He admits to some mild increased shortness of breath but no chest pain or dyspnea. He admits to upper respiratory symptoms such as sneezing and coughing that started 10 days ago. reports he had some wheezing with his cough. This is improving and mostly resolved. Also admits to swelling in his lower extremities since having a screen placed 3 weeks ago (green filter?). This was placed as he has history of DVT and failed anticoagulant therapy due to "bleeding" (sounds like GI as said he had polyps). He was on Plavix in the past but this was stopped also due to his bleeding and anemia. Follows with Dr. Guillen who has performed paracentesis for him in the past. Chart also reveals neutropenia. History of OR during TIPS procedure. Takes multiple antihypertensives and an antilipid as well as aspirin. - History Of Current Complaint Chief Complaint: EDAbdPain Time Seen by Provider: 08/14/18 10:20 Hx Obtained From: Patient, Family/Filter Cleaner - - Allergies/Home Medications Allergies/Adverse Reactions: Allergies Allergy/AdvReac Type Severity Reaction Status Date / Time Adhesive Tape Allergy Unknown Verified 08/14/18 10:14 Reaction Details Horse/Equine Containing Allergy Hives Verified 08/14/18 10:14 Products latex Allergy Unknown Verified 08/14/18 10:14 Reaction Details midodrine Allergy Unknown Verified 01/15/19 10:14 Reaction Details PMH/Surg Hx/FS Hx/Imm Hx Previously Healthy: No - multiple co-morbidities Endocrine/Hematology History: Reports: Hx Anemia, Hx Unexplained Bleeding, Other Endocrine/Hematological Disorders - hx neutropenia Denies: Hx Anticoagulant Therapy - failed d/t bleeding - only takes ASA daily , Hx Diabetes Cardiovascular History: Reports: Hx Angina, Hx Coronary Artery Disease, Hx Deep Vein Thrombosis - with filter in place , Hx Hypercholesterolemia, Hx Hypertension, Hx Myocardial Infarction, Hx Pacemaker/ICD - pacemaker Denies: Hx Cardiac Arrest, Hx Cardiomegaly, Hx Congenital Heart Disease, Hx Congestive Heart Failure, Hx Embolism, Hx Hypotension, Hx Rheumatic Fever, Hx Syncope, Hx Valvular Heart Disease Respiratory History: Reports: Hx Sleep Apnea - current CPAP user GI History: Reports: Hx Cirrhosis - s/p TIPS, Hx Gall Bladder Disease, Hx Gastroesophageal Reflux Disease, Hx Gastrointestinal Bleed, Hx Irritable Bowel, Other GI Disorders - brijesh, jessika'y, S/P TIPS at [facility] Denies: Hx Crohn's Disease, Hx Diverticulosis, Hx Hiatal Hernia History: Reports: Other Problems/Disorders - weak bladder s/p bladder cancer, colon polyps Denies: Hx Renal Disease Musculoskeletal History: Reports: Other Musculoskeletal History - hammer toes, both feet, had sx. Denies: Hx Rheumatoid Arthritis Sensory History: Reports: Hx Contacts or Glasses Denies: Hx Deafness, Hx Hearing Aid, Hx Hearing Problem, Other Sensory Impairments Opthamlomology History: Reports: Hx Contacts or Glasses Denies: Other Sensory Impairments Neurological History: Denies: Hx Dementia, Hx Developmental Delay, Hx Headaches, Hx Migraine, Hx Nerve Disease, Hx Seizures, Hx Spinal Cord Injury, Hx Transient Ischemic Attacks (TIA), Other Neuro Impairments/Disorders Psychiatric History: Denies: Hx Autism, Hx Schizophrenia - Cancer History Cancer Type, Location and Year: bladder cancer Hx Chemotherapy: No - Surgical History Surgery Procedure, Year, and Place: cataract surgery with lens implants bilat eyes. hammer toe repair bilat feet. appendectomy. cholecystectomy. cardiac stents 2018. TIPS. surg for colonic polyps. 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 Negative: Cough Positive: Abdominal Pain. Negative: Vomiting, Diarrhea, Nausea Genitourinary: Negative Musculoskeletal: Negative Skin: Negative Neurological: Negative Psychological: Normal All Other Systems Reviewed And Are Negative: Yes Physical Exam Triage Information Reviewed: Yes Vital Signs On Initial Exam: Initial Vitals Temp Pulse Resp BP Pulse Ox 97.8 F 88 16 112/63 99 08/14/18 10:11 08/14/18 10:11 08/14/18 10:11 08/14/18 10:11 08/14/18 10:11 Vital Signs Reviewed: Yes Appearance: Positive: Ill-Appearing - apepars fatigued, Pain Distress - mild to moderate Skin: Positive: Warm, Skin Color Reflects Adequate Perfusion, Dry - borderline jaundice Head/Face: Positive: Normal Head/Face Inspection Eyes: Positive: Normal, EOMI, MANJULA, Conjunctiva Clear. Negative: Conjunctiva Inflammed, Discharge ENT: Positive: Hearing grossly normal, Pharynx normal - mucosa somewhat dry Neck: Positive: Supple, Nontender Respiratory/Lung Sounds: Positive: Clear to Auscultation, Breath Sounds Present. Negative: Rales, Rhonchi, Wheezes Cardiovascular: Positive: RRR, Leg Edema Left, Leg Edema Right, S1, S2 Abdomen Description: Positive: Distended - firm, diffuse TTP, Other: - no fluid sign, no ecchymosis. Negative: Bruit Bowel Sounds: Positive: Present Musculoskeletal: Positive: Other - moving in bed for exam but weak in general Neurological: Positive: Normal, Sensory/Motor Intact, Alert, Oriented to Person Place, Time, CN Intact II-III Psychiatric: Positive: Normal - Alin Coma Scale Best Eye Response: 4 - Spontaneous Best Motor Response: 6 - Obeys Commands Best Verbal Response: 5 - Oriented Coma Scale Total: 15 Diagnostics - Vital Signs Vital Signs Temp Pulse Resp BP Pulse Ox 08/14/18 10:27 91 100 08/14/18 10:25 91 137/61 97 08/14/18 10:11 97.8 F 88 16 112/63 99 - Laboratory Result Diagrams: 08/17/18 07:04 08/17/18 07:04 Lab Statement: Any lab studies that have been ordered have been reviewed, and results considered in the medical decision making process. Complex Multi-Symp Course/Dx Course Of Treatment: Most labs comparable or improved from previous. Lactic acid 2.7. CRP 119.61. CT: #1 anasarca with B/L pleural effusions #2 small bowel ileus vs. partial obstruction. Discussed w/ Dr. Arriaga who agrees to admit pt. Improved pain and no vomiting since meds - stable at time of transition of care. - Diagnoses Provider Diagnoses: Anasarca, Small bowel problem Discharge - Sign-Out/Discharge Documenting (check all that apply): Patient Departure - Discharge Plan Condition: Stable Disposition: [facility]MITTED TO [facility] - Billing Disposition and Condition Condition: STABLE Disposition: Admitted to [facility]
[2018-08-14 11:53] LABS: ABS Basophils 0 10^3/ul (0-0.2); ABS Eosinophils 0 10^3/ul (0-0.6); ABS Lymphocytes 0.5 10^3/ul (1.0-4.8); ABS Monocytes 0.7 10^3/ul (0-0.8); ABS Neutrophils 6.5 10^3/ul (1.5-7.7); ABS Nucleated RBC 0 10^3/ul; Eosinophil % 0 %; Hematocrit 27 % (42-52); Hemoglobin 9.1 g/dl (14.0-18.0); Lymphocyte % 6.7 %; Mean Corpuscular HGB Conc 34 g/dl (31-36); Mean Corpuscular Hemoglobin 32 pg (27-31); Mean Corpuscular Volume 95 fL (80-94); Mean Platelet Volume 7.2 fL (7.4-10.4); Nucleated Red Blood Cells % 0; Platelet Count 200 10^3/ul (150-450); Red Blood Count 2.87 10^6/ul (4.00-5.40); Red Cell Distribution Width 18 % (10.5-15); White Blood Count 7.7 10^3/ul (3.5-10.8)
[2018-08-14 11:54] LABS: Activated Partial Thrombo Time 34.1 seconds (26.0-36.3); INR 1.2 (0.77-1.02)
[2018-08-14 12:06] LABS: Albumin/Globulin Ratio 0.6 (1-3); BUN/Creatinine Ratio 11.5 (8-20); C Reactive Protein 119.61 mg/L (<8.01); Calcium 7.8 mg/dL (8.6-10.3); Globulin 3.4 g/dL (2-4); Magnesium 1.6 mg/dL (1.9-2.7); Total Bilirubin 0.8 mg/dL (0.2-1.0); Total Protein 5.4 g/dL (6.4-8.9)
[2018-08-14 12:13] LABS: Potassium 5.3 mmol/L (3.5-5.0)
[2018-08-14] MEDS ORDERED: Furosemide IV* 10 MG/ML VIAL (40 MG) IV ONE (15:32)
[2018-08-14] MEDS ORDERED: Magnesium Sulfate IV* 3 GM in NS 0.9% 100 ML* 100 ML IVPB ONE (15:39)
[2018-08-14 16:57] LABS: ABS Basophils 0 10^3/ul (0-0.2); ABS Eosinophils 0 10^3/ul (0-0.6); ABS Lymphocytes 0.6 10^3/ul (1.0-4.8); ABS Monocytes 0.7 10^3/ul (0-0.8); ABS Neutrophils 5.2 10^3/ul (1.5-7.7); ABS Nucleated RBC 0 10^3/ul; Eosinophil % 0.1 %; Hematocrit 25 % (42-52); Hemoglobin 8.3 g/dl (14.0-18.0); Lymphocyte % 8.7 %; Mean Corpuscular HGB Conc 34 g/dl (31-36); Mean Corpuscular Hemoglobin 32 pg (27-31); Mean Corpuscular Volume 95 fL (80-94); Mean Platelet Volume 7.4 fL (7.4-10.4); Nucleated Red Blood Cells % 0; Platelet Count 185 10^3/ul (150-450); Red Blood Count 2.59 10^6/ul (4.00-5.40); Red Cell Distribution Width 18 % (10.5-15); White Blood Count 6.4 10^3/ul (3.5-10.8)
[2018-08-14 17:18] LABS: Activated Partial Thrombo Time 35.2 seconds (26.0-36.3); INR 1.22 (0.77-1.02)
[2018-08-14 17:29] LABS: EGFR Non-African American 31.7 (>60)
[2018-08-14] MEDS: Morphine VIAL* 4 MG/ML VIAL (1 ml vial) IV PRN ×2 (17:39→22:57)
[2018-08-14] MEDS: cefTRIAXone(*) 1 GM in NS 0.9% 50 ML* 50 ML IVPB SCH (17:39)
[2018-08-14] MEDS ORDERED: Lidocaine 1% INJ* 10 MG/ML 30 ML SDV ONE (18:30)
--- NOTE | 2018-08-14 19:32 | CONS ---
SURGICAL CONSULTATION NOTE: DATE OF CONSULT: 08/14/18. LOCATION: This patient was seen in the [facility] Emergency Department on 08/14/18. CHIEF COMPLAINT: Abdominal pain, nausea, and vomiting. 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 He is known to Dr. Nunez and underwent open reduction and repair of strangulated umbilical hernia with small bowel resection on 07/16/18. He reports that yesterday he had the onset of abdominal pain associated with nausea, vomiting, and chills. He called our office this morning and was instructed to go to the emergency department for evaluation. Today, he reports decreased appetite, but no further nausea or vomiting, and he rates his abdominal pain at present 5/10. He has loose stools related to his lactulose. In the emergency department, he had a CAT scan of the abdomen and pelvis, which revealed ascites. No free air, no evidence of abscess and small bowel ileus was favored over small bowel obstruction. White count is 7.7, potassium is 5.3, lactic acid 2.7, creatinine 2.09. He will be admitted to the hospitalist service and will require a paracentesis. MEDICATIONS: Reviewed. ALLERGIES: ADHESIVE TAPE, LATEX, EQUINE PRODUCTS, and MIDODRINE. PHYSICAL EXAM: He is afebrile. Blood pressure 108/53, heart rate 90, respiratory rate 16, O2 saturation on room air 96%. The patient is alert and oriented x3. Physical exam is limited to the abdomen, active bowel sounds; the abdomen is large and ballotable, consistent with ascites; tender to palpation, no guarding; well- healed umbilical scar. IMPRESSION: Ascites and small bowel ileus related to the ascites. PLAN/RECOMMENDATIONS: Per Dr. Nunez, paracentesis to be scheduled. I discussed the plan with Dr. Arriaga. TIME SPENT: One hour with greater than 50% in [id number] patient examination and counseling. ELVER LOPEZ, [employer] [id number]/[facility] #: [id number] GALO
[2018-08-14 20:34] LABS: Body Fluid Source Peritonial Fluid
[2018-08-14] MEDS ORDERED: Metoprolol Succinate XL TAB* 25 MG PO SCH (21:00)
[2018-08-14] MEDS: Metoprolol Succinate XL TAB* 25 MG PO SCH (21:11)
[2018-08-14] MEDS: Pantoprazole TAB * 40 MG TAB PO SCH (21:25)
[2018-08-14] MEDS: RiFAXimin* 550 MG TAB PO SCH (21:25)
[2018-08-14] MEDS: Heparin VIAL(*) 5000 UNITS/ML VIAL (FIVE THOUSAND) SUBCUT SCH (21:25)
[2018-08-14 21:50] LABS: Body Fluid Mono 8 %; Body Fluid Other Cells 10
[2018-08-14 21:55] LABS: Urine Appearance Clear; Urine Bacteria 1+ (Absent); Urine Bilirubin Negative (Negative); Urine Blood 1+ (Negative); Urine Color Yellow; Urine Glucose Negative (Negative); Urine Ketones Negative (Negative); Urine Nitrite Negative (Negative); Urine Protein Negative (Negative); Urine Red Blood Cell Trace(0-2/hpf) (Absent); Urine Specific Gravity 1.011 (1.010-1.030); Urine Urobilinogen Negative (Negative); Urine White Blood Cell Trace(0-5/hpf) (Absent)
--- NOTE | 2018-08-14 22:01 | HP ---
CC: Dr. Johnston; Dr. Nunez; Dr. Guillen; Dr. Olmedo; Dr. Ruiz; Dr. Ward; Cassandra Donaldson, Surgical Services * HISTORY AND PHYSICAL: DATE OF ADMISSION: 08/14/18 PRIMARY MEDICAL PROVIDER: Dr. Johnston. CHIEF COMPLAINT: Nausea, vomiting, abdominal pain. HISTORY OF PRESENT ILLNESS: Bernardo Ashford is a 78-year-old male with history of cryptogenic liver cirrhosis, coronary artery disease, recent GI bleed, status post pacemaker placement as well as history of DVT, status post IVC filter placement , who also has history of recent reduction and repair of an incarcerated umbilical hernia performed by Dr. Nunez on 07/16/18. The patient stated that he had been in his usual state of health; apart from that that he has gained approximately 30 pounds for the past month since his discharge from the hospital postoperatively on 07/19/18. He noted that his legs were edematous and his abdomen markedly enlarged. He saw Dr. Ruiz a week ago who just started the patient on Lasix at 40 mg daily IM. Unfortunately , the patient was unable to start it because yesterday he has developed abdominal cramping in the area of reta-incision site. He said his abdominal cramping would be intermittent. In addition to that, he started not being able to tolerate p.o. diet with nausea and vomiting. Currently, the abdominal pain is somewhat controlled with medications that the patient received in the emergency department. A CT of the abdomen showed possibility of ileus or small bowel obstruction. The patient also has over 30-pound weight gain and diffuse anasarca. He is going to be admitted with diagnosis of bowel obstruction. PAST MEDICAL HISTORY: 1. History of cryptogenic liver cirrhosis, status post TIPS procedure in February 2018. 2. History of coronary artery disease, status post stenting in September 2007 with subsequent acute myocardial infraction in February 2018 with in-stent restenosis and 3 more stents placed at that point at [facility] in [place]. 3. History of recurrent GI bleed due to large polyps of small bowel removed in [place] in May 2018. 4. Status post pacemaker placement in the past and also with sleep apnea, on CPAP. 5. History of anemia with iron infusions during his last hospital stay. 6. History monoclonal gammopathy, under the care of Dr. Guillen. 7. History of DVT, status post IVC filter placement in the past. 8. History of laparoscopic cholecystectomy. 9. Due to recurrent GI bleed, the patient is now off Plavix. 10. History of hepatic encephalopathy in the past. Notable for that the patient's ammonia levels do not correspond with the patient's encephalopathy level. He had been known to have an ammonia level well over 100 with normal mentation. CURRENT MEDICATIONS AT HOME: Included: 1. Lasix that was supposed to be started at 40 mg a day. The patient was unable to start it though, 2. Aldactone 50 mg daily. 3. Crestor 40 mg daily. 4. Rifaximin 550 mg b.i.d. 5. Protonix 40 mg b.i.d. 6. Metoprolol succinate 12.5 mg b.i.d. 7. Mag-Ox 400 mg daily. 8. Lactulose 30 mL 4 times a day. 9. Ferrous sulfate 325 mg b.i.d. 10. Aspirin 81 mg daily. ALLERGIES: Include ADHESIVE TAPE and HORSE DANDER. FAMILY HISTORY: Positive for mother who during his childbirth at the age of 25. Father with history of cancer. SOCIAL HISTORY: The patient denies any tobacco, alcohol, or drug use. 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 His surrogate is his . REVIEW OF SYSTEMS: Please see history of present illness. In addition to above mentioned, the patient stated that he has had marked edema and marked increasing abdominal girth in the past 1 month. Otherwise, he has been feeling well until yesterday when he developed the above-mentioned abdominal cramping, nausea, and vomiting as placed in history of present illness. In addition to that, on his lactulose, he had been having loose bowel movements, last one today morning. All the remaining 12 systems were reviewed with the patient and were otherwise negative. PHYSICAL EXAMINATION GENERAL: The patient is a very pleasant 78-year-old male, who is in no acute distress. Alert, awake, and oriented x3. VITAL SIGNS: Blood pressure of 120/60, heart rate of 92 and regular, respiratory rate 18, oxygen saturation 97% on room air, and temperature of 97.8. HEENT: Head atraumatic and normocephalic. Eyes: Pupils are equal, reactive to light and accommodation. Oropharynx is clear. Mucosa moist. NECK: Supple. No JVD. No bruits bilaterally. RESPIRATORY: Clear to auscultation bilaterally. CARDIOVASCULAR: Regular rate and rhythm. No murmur. ABDOMEN: With ascites present, rather dense, soft, tender, mostly in the periumbilical hernia repair area, specifically localized on the left side of the noted scar in the midabdomen. There is no rebound, no guarding. Bowel sounds are of high pitched, but present in all 4 quadrants. EXTREMITIES: There is +3 pitting pedal edema bilaterally. Pulses are basically unobtainable due to pedal edema, but there was good capillary relief and no cyanosis noted. NEUROLOGIC: Speech clear. Cranial nerves II through XII grossly intact. Motor strength is 5/5 bilaterally. No asterixis is noted. PSYCHIATRIC EVALUATION: A very pleasant and cooperative with evaluation, oriented x3 with no evidence of anxiety or depression. DIAGNOSTIC STUDIES/LAB DATA: Showed sodium of 136, potassium 4.3, chloride 115 , carbon dioxide 15, BUN 24, and creatinine 2.09. Liver functions showed total bilirubin of 0.8, AST of 40, ALT of 32, alkaline phosphatase of 132. Magnesium was low at 1.6. Lactic acid elevated at 2.7. C-reactive protein was elevated at 119. B-type natriuretic peptide was 338. CBC: White blood cell count of 7.7, hemoglobin of 9.1, hematocrit of 27, MCV of 95, and platelets of 200. INR of 1.21. Influenza testing was negative. CT of abdomen and pelvis: Impression: Anasarca on the basis of the liver failure based on imaging findings increased over the prior exam including increased volume with bilateral pleural effusions and ascites. No persistent umbilical hernia evident. No peritoneal abscess collection evident within limitations of noncontrast CT. Negative for free air. Small bowel ileus favored of a partial obstruction on auscultation. ASSESSMENT AND PLAN: 1. The patient has symptoms of small bowel obstruction versus ileus. I suspect that recent surgery and significant anasarca worsened the patient's predisposition to that. At this point, I will ask surgical services to see the patient in consultation for further recommendations. The patient is going to be n.p.o. apart from taking his medications with sips of water. I think the important part of the patient's treatment will be trying to relieve the patient' s anasarca and ascites. I will ask for surgical consult in regard to paracentesis, which should be therapeutic and diagnostic, although spontaneous bacterial peritonitis is on the low differential. 2. The patient has elevations in CRP and abdominal pain with significant history of ascites. The patient is going to be continued on rifaximin. I will place the patient on ceftriaxone for possibility of spontaneous bacterial peritonitis; and once again, I think it is lower on differential. Also previous studies from paracentesis fluid that is going to be obtained by surgery are going to be ordered. 3. In regard to the patient's history of heart disease, the patient is going to be continued on aspirin. Plavix was held during his last hospital stays in April and May due to history of GI bleed. I will obtain the patient's EKG to evaluate for any changes, although the patient denies any chest pain. I will continue his beta-blockers with hold parameters. Statin is going to be held when the patient is n.p.o. 4. For hypomagnesemia, the patient is going to be placed on IV magnesium for the time being. 5. The patient has history of DVT and IVC filter in the past. Due to that that his hemoglobin has been stable now and his bleed last developed in May and at beginning of June of 2018, I will place the patient on heparin subcu for DVT prophylaxis. 6. For history of hepatic encephalopathy, the patient's mental status is at his baseline and lactulose as well as rifaximin is going to be continued. 7. His code status: The patient's code status is full and his surrogate is his . TIME SPENT: Approximately 65 minutes was spent on admission of this patient, more than half that time was spent [id number] with the patient during the interview and physical exam. [id number] #: [id number] GALO
[2018-08-14] MEDS ORDERED: Albumin Human 25%* 25 GM/100 ML BTL IV ONE (23:00)
--- NOTE | 2018-08-15 02:18 | PRO ---
CC: Franklyn Johnston MD; Edwin Guillen MD; [facility] * DATE OF OPERATION: 08/14/18 - ROOM #333 DATE OF : 42 SURGEON: Dr. Nunez. PHARMACY BUYER: None. ANESTHESIA: 1% lidocaine plain used locally. PRE-PROCEDURE DIAGNOSIS: Recurrent ascites. POST-PROCEDURE DIAGNOSIS: Recurrent ascites. PROCEDURE: Therapeutic paracentesis. DRAINS: None. COMPLICATIONS: None. DESCRIPTION OF PROCEDURE: The patient was positioned supine on the hospital bed. He was marked, prepped and draped in the usual sterile fashion. Time-out was performed. Local anesthetic was infiltrated into the site that had been marked with an ultrasound. The local anesthetic was infiltrated along the proposed path and then an 8-Comoran catheter over needle device was advanced into the peritoneal cavity. Serosanguineous ascites fluid was aspirated. The needle was withdrawn and the catheter was connected to evacuated canisters. The flow was very positional and a combination of manual aspiration and evacuated canister aspiration was utilized. Ultimately, after about 3.5 L was removed, the catheter ceased to function. This was withdrawn. A 5-Comoran paracentesis catheter was then used to replace it, and I was able to aspirate an additional amount of fluid to a total of 5.1 L of clear, serosanguineous ascites. The second catheter also ceased to flow and therefore, the procedure was terminated. The skin site was suture closed with 2-0 Prolene. Dressing was applied. The patient tolerated the procedure well. [id number]/[facility] #: [id number] [facility]
[2018-08-15 05:51] LABS: ABS Basophils 0 10^3/ul (0-0.2); ABS Eosinophils 0 10^3/ul (0-0.6); ABS Lymphocytes 0.3 10^3/ul (1.0-4.8); ABS Monocytes 0.5 10^3/ul (0-0.8); ABS Neutrophils 2.4 10^3/ul (1.5-7.7); ABS Nucleated RBC 0 10^3/ul; Eosinophil % 0.4 %; Hematocrit 21 % (42-52); Hemoglobin 7.1 g/dl (14.0-18.0); Lymphocyte % 9.4 %; Mean Corpuscular HGB Conc 34 g/dl (31-36); Mean Corpuscular Hemoglobin 32 pg (27-31); Mean Corpuscular Volume 95 fL (80-94); Mean Platelet Volume 7.5 fL (7.4-10.4); Nucleated Red Blood Cells % 0.6; Platelet Count 122 10^3/ul (150-450); Red Blood Count 2.21 10^6/ul (4.00-5.40); Red Cell Distribution Width 18 % (10.5-15); White Blood Count 3.2 10^3/ul (3.5-10.8)
[2018-08-15] MEDS: Heparin VIAL(*) 5000 UNITS/ML VIAL (FIVE THOUSAND) SUBCUT SCH ×3 (06:07→21:05)
[2018-08-15 06:10] LABS: Albumin/Globulin Ratio 0.7 (1-3); BUN/Creatinine Ratio 12.3 (8-20); Calcium 7.6 mg/dL (8.6-10.3); EGFR Non-African American 28.2 (>60); Globulin 2.7 g/dL (2-4); Total Bilirubin 0.6 mg/dL (0.2-1.0); Total Protein 4.7 g/dL (6.4-8.9)
[2018-08-15 06:11] LABS: Potassium 5.5 mmol/L (3.5-5.0)
[2018-08-15 06:18] LABS: Urine Appearance Clear; Urine Bilirubin Negative (Negative); Urine Blood Negative (Negative); Urine Color Yellow; Urine Glucose Negative (Negative); Urine Ketones Negative (Negative); Urine Nitrite Negative (Negative); Urine Protein Negative (Negative); Urine Specific Gravity 1.008 (1.010-1.030); Urine Urobilinogen Negative (Negative)
[2018-08-15] MEDS ORDERED: Furosemide IV* 10 MG/ML 2 ML VIAL (20 MG) IV SCH (08:00)
[2018-08-15] MEDS: RiFAXimin* 550 MG TAB PO SCH ×2 (09:48→21:03)
[2018-08-15] MEDS: Pantoprazole TAB * 40 MG TAB PO SCH ×2 (09:48→21:04)
[2018-08-15] MEDS: Aspirin EC TAB* 81 MG TAB.EC PO SCH (09:48)
[2018-08-15] MEDS: Metoprolol Succinate XL TAB* 25 MG PO SCH ×2 (09:49→20:51)
--- NOTE | 2018-08-15 12:33 | CONSULT ---
Palliative / Hospice Consult Ordering Provider: Louie Johnston - Subjective Code Status: Full Code Advance [place]ives [place] [facility] [place] History or Present Illness History or Present Illness: 78 yo male with cryptogenic liver cirrhosis developed nausea, vomiting, decreased appetite and weight gain. Was brought to ER and admitted with SBO vs ileus and ascites. He has an extensive PMH for CAD has a pacer & stents placed in 10/05 restented after LA in [place]. He had TIPS procedure in 02/2018 and says he is not a candidate for liver transplant. Recent GI bleed due to polyps, h/o DVT with IVC placed, umbilical hernia repaired 07/16/18 with small bowel resection, sleep apnea on CPAP, anemia for which he receives transfusions and monoclonal gammopathy which is followed by Dr. Crain. 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 He has had 10 admissions this past year. He was referred to [facility] and did the intake session but says he is not following with them. CXR show CHF, paracentesis took off 5 liters. MELD score 19, KPS 50%, PPS 60%, BUN/ CR 28/2.27 egfr 28.2, BNP 338, alb 2, INR 1.22 and tprot 4.7. pt awake and oriented x3 Lab Values: Abnormal Lab Results 08/14/18 08/14/18 08/14/18 11:29 12:24 16:38 WBC RBC Hgb Hct MCV MCH MCHC RDW Plt Count MPV Neut % (Auto) Lymph % (Auto) [place]offe[place] % (Auto) Eos % (Auto) Baso % (Auto) Absolute Neuts (auto) Absolute Lymphs (auto) Absolute Monos (auto) Absolute Eos (auto) Absolute Basos (auto) Absolute Nucleated RBC Nucleated RBC % INR (Anticoag Therapy) APTT Sodium Potassium Chloride Carbon Dioxide Anion Gap BUN Creatinine Est GFR ( Amer) Est GFR (Non-Af Amer) BUN/Creatinine Ratio Glucose Lactic Acid 2.0 Calcium Magnesium Total Bilirubin AST ALT Alkaline Phosphatase B-Natriuretic Peptide 338 H Total Protein Albumin Globulin Albumin/Globulin Ratio Urine Color Urine Appearance Urine pH Ur Specific Stuart Urine Protein Urine Ketones Urine Blood Urine Nitrate Urine Bilirubin Urine Urobilinogen Ur Leukocyte Esterase Urine WBC (Auto) Urine RBC (Auto) Ur Squamous Epith Cells Urine Bacteria Hyaline Casts Urine Glucose Fluid Source Fluid Volume Fluid Color Fluid Appearance Fluid WBC Fluid RBC Fluid Tot Cell Count Fluid Neutrophils Fluid Lymphocytes Fluid Monocytes Fluid Other Cells Influenza A (Rapid) Negative Influenza B (Rapid) Negative 08/14/18 08/14/18 08/14/18 16:38 16:38 16:38 WBC 6.4 RBC 2.59 L Hgb 8.3 L Hct 25 L MCV 95 H MCH 32 H MCHC 34 RDW 18 H Plt Count 185 MPV 7.4 Neut % (Auto) 80.4 Lymph % (Auto) 8.7 Coffey % (Auto) 10.5 Eos % (Auto) 0.1 Baso % (Auto) 0.3 Absolute Neuts (auto) 5.2 Absolute Lymphs (auto) 0.6 L Absolute Monos (auto) 0.7 Absolute Eos (auto) 0 Absolute Basos (auto) 0 Absolute Nucleated RBC 0 Nucleated RBC % 0 INR (Anticoag Therapy) 1.22 H APTT 35.2 Sodium Potassium Chloride Carbon Dioxide Anion Gap BUN 25 H Creatinine 2.05 H Est GFR ( Amer) 38.4 Est GFR (Non-Af Amer) 31.7 BUN/Creatinine Ratio Glucose Lactic Acid Calcium Magnesium Total Bilirubin AST ALT Alkaline Phosphatase B-Natriuretic Peptide Total Protein Albumin Globulin Albumin/Globulin Ratio Urine Color Urine Appearance Urine pH Ur Specific Stuart Urine Protein Urine Ketones Urine Blood Urine Nitrate Urine Bilirubin Urine Urobilinogen Ur Leukocyte Esterase Urine WBC (Auto) Urine RBC (Auto) Ur Squamous Epith Cells Urine Bacteria Hyaline Casts Urine Glucose Fluid Source Fluid Volume Fluid Color Fluid Appearance Fluid WBC Fluid RBC Fluid Tot Cell Count Fluid Neutrophils Fluid Lymphocytes Fluid Monocytes Fluid Other Cells Influenza A (Rapid) Influenza B (Rapid) 08/14/18 08/14/18 08/15/18 20:30 21:35 05:28 WBC RBC Hgb Hct MCV MCH MCHC RDW Plt Count MPV Neut % (Auto) Lymph % (Auto) Coffey % (Auto) Eos % (Auto) Baso % (Auto) Absolute Neuts (auto) Absolute Lymphs (auto) Absolute Monos (auto) Absolute Eos (auto) Absolute Basos (auto) Absolute Nucleated RBC Nucleated RBC % INR (Anticoag Therapy) APTT Sodium 134 L Potassium 5.5 H Chloride 113 H Carbon Dioxide 17 L Anion Gap 4 BUN 28 H Creatinine 2.27 H Est GFR ( Amer) 34.1 Est GFR (Non-Af Amer) 28.2 BUN/Creatinine Ratio 12.3 Glucose 75 Lactic Acid Calcium 7.6 L Magnesium 2.0 Total Bilirubin 0.60 AST 30 ALT 25 Alkaline Phosphatase 104 B-Natriuretic Peptide Total Protein 4.7 L Albumin 2.0 L Globulin 2.7 Albumin/Globulin Ratio 0.7 L Urine Color Yellow Urine Appearance Clear Urine pH 5.0 Ur Specific Stuart 1.011 Urine Protein Negative Urine Ketones Negative Urine Blood 1+ A Urine Nitrate Negative Urine Bilirubin Negative Urine Urobilinogen Negative Ur Leukocyte Esterase Negative Urine WBC (Auto) Trace(0-5/hpf) Urine RBC (Auto) Trace(0-2/hpf) Ur Squamous Epith Cells Present A Urine Bacteria 1+ A Hyaline Casts Present A Urine Glucose Negative Fluid Source Peritonial fluid Fluid Volume 4500.0 Fluid Color [place] Fluid Appearance Cloudy Fluid WBC 8365 Fluid RBC 00960 Fluid Tot Cell Count 100 Fluid Neutrophils 90 Fluid Lymphocytes 2 Fluid Monocytes 8 Fluid Other Cells 10 Influenza A (Rapid) Influenza B (Rapid) 08/15/18 08/15/18 05:28 06:05 WBC 3.2 L RBC 2.21 L Hgb 7.1 L Hct 21 L MCV 95 H MCH 32 H MCHC 34 RDW 18 H Plt Count 122 L MPV 7.5 Neut % (Auto) 75.2 Lymph % (Auto) 9.4 Coffey % (Auto) 14.7 Eos % (Auto) 0.4 Baso % (Auto) 0.3 Absolute Neuts (auto) 2.4 Absolute Lymphs (auto) 0.3 L Absolute Monos (auto) 0.5 Absolute Eos (auto) 0 Absolute Basos (auto) 0 Absolute Nucleated RBC 0 Nucleated RBC % 0.6 INR (Anticoag Therapy) APTT Sodium Potassium Chloride Carbon Dioxide Anion Gap BUN Creatinine Est GFR ( Amer) Est GFR (Non-Af Amer) BUN/Creatinine Ratio Glucose Lactic Acid Calcium Magnesium Total Bilirubin AST ALT Alkaline Phosphatase B-Natriuretic Peptide Total Protein Albumin Globulin Albumin/Globulin Ratio Urine Color Yellow Urine Appearance Clear Urine pH 5.0 Ur Specific [place] 1.008 L Urine Protein Negative Urine Ketones Negative Urine Blood Negative Urine Nitrate Negative Urine Bilirubin Negative Urine Urobilinogen Negative Ur Leukocyte Esterase Negative Urine WBC (Auto) Urine RBC (Auto) Ur Squamous Epith Cells Urine Bacteria Hyaline Casts Urine Glucose Negative Fluid Source Fluid Volume Fluid Color Fluid Appearance Fluid WBC Fluid RBC Fluid Tot Cell Count Fluid Neutrophils Fluid Lymphocytes Fluid Monocytes Fluid Other Cells Influenza A (Rapid) Influenza B (Rapid) Laboratory Last Values WBC 3.2 10^3/ul (3.5-10.8) L 08/15/18 05:28 RBC 2.21 10^6/ul (4.00-5.40) L 08/15/18 05:28 Hgb 7.1 g/dl (14.0-18.0) L 08/15/18 05:28 Hct 21 % (42-52) L 08/15/18 05:28 MCV 95 fL (80-94) H 08/15/18 05:28 MCH 32 pg (27-31) H 08/15/18 05:28 MCHC 34 g/dl (31-36) 08/15/18 05:28 RDW 18 % (10.5-15) H 08/15/18 05:28 Plt Count 122 10^3/ul (150-450) L 08/15/18 05:28 MPV 7.5 fL (7.4-10.4) 08/15/18 05:28 Neut % (Auto) 75.2 % 08/15/18 05:28 Lymph % (Auto) 9.4 % 08/15/18 05:28 Coffey % (Auto) 14.7 % 08/15/18 05:28 Eos % (Auto) 0.4 % 08/15/18 05:28 Baso % (Auto) 0.3 % 08/15/18 05:28 Absolute Neuts (auto) 2.4 10^3/ul (1.5-7.7) 08/15/18 05:28 Absolute Lymphs (auto) 0.3 10^3/ul (1.0-4.8) L 08/15/18 05:28 Absolute Monos (auto) 0.5 10^3/ul (0-0.8) 08/15/18 05:28 Absolute Eos (auto) 0 10^3/ul (0-0.6) 08/15/18 05:28 Absolute Basos (auto) 0 10^3/ul (0-0.2) 08/15/18 05:28 Absolute Nucleated RBC 0 10^3/ul 08/15/18 05:28 Nucleated RBC % 0.6 08/15/18 05:28 INR (Anticoag Therapy) 1.22 (0.77-1.02) H 08/14/18 16:38 APTT 35.2 seconds (26.0-36.3) 08/14/18 16:38 Sodium 134 mmol/L (135-145) L 08/15/18 05:28 Potassium 5.5 mmol/L (3.5-5.0) H 08/15/18 05:28 Chloride 113 mmol/L (101-111) H 08/15/18 05:28 Carbon Dioxide 17 mmol/L (22-32) L 08/15/18 05:28 Anion Gap 4 mmol/L (2-11) 08/15/18 05:28 BUN 28 mg/dL (6-24) H 08/15/18 05:28 Creatinine 2.27 mg/dL (0.67-1.17) H 08/15/18 05:28 Est GFR ( Amer) 34.1 (>60) 08/15/18 05:28 Est GFR (Non-Af Amer) 28.2 (>60) 08/15/18 05:28 BUN/Creatinine Ratio 12.3 (8-20) 08/15/18 05:28 Glucose 75 mg/dL (70-100) 08/15/18 05:28 Lactic Acid 2.0 mmol/L (0.5-2.0) 08/14/18 16:38 Calcium 7.6 mg/dL (8.6-10.3) L 08/15/18 05:28 Magnesium 2.0 mg/dL (1.9-2.7) 08/15/18 05:28 Total Bilirubin 0.60 mg/dL (0.2-1.0) 08/15/18 05:28 AST 30 U/L (13-39) 08/15/18 05:28 ALT 25 U/L (7-52) 08/15/18 05:28 Alkaline Phosphatase 104 U/L (34-104) 08/15/18 05:28 Ammonia 40 mcmol/L (16-53) 08/14/18 11:29 C-Reactive Protein 119.61 mg/L (<8.01) H 08/14/18 11:29 B-Natriuretic Peptide 338 pg/mL (<=100) H 08/14/18 11:29 Total Protein 4.7 g/dL (6.4-8.9) L 08/15/18 05:28 Albumin 2.0 g/dL (3.2-5.2) L 08/15/18 05:28 Globulin 2.7 g/dL (2-4) 08/15/18 05:28 Albumin/Globulin Ratio 0.7 (1-3) L 08/15/18 05:28 Amylase 43 U/L (29-103) 08/14/18 11:29 Lipase 15 U/L (11.0-82.0) 08/14/18 11:29 Urine Color Yellow 08/15/18 06:05 Urine Appearance Clear 08/15/18 06:05 Urine pH 5.0 (5-9) 08/15/18 06:05 Ur Specific [place] 1.008 (1.010-1.030) L 08/15/18 06:05 Urine Protein Negative (Negative) 08/15/18 06:05 Urine Ketones Negative (Negative) 08/15/18 06:05 Urine Blood Negative (Negative) 08/15/18 06:05 Urine Nitrate Negative (Negative) 08/15/18 06:05 Urine Bilirubin Negative (Negative) 08/15/18 06:05 Urine Urobilinogen Negative (Negative) 08/15/18 06:05 Ur Leukocyte Esterase Negative (Negative) 08/15/18 06:05 Urine WBC (Auto) Trace(0-5/hpf) (Absent) 08/14/18 21:35 Urine RBC (Auto) Trace(0-2/hpf) (Absent) 08/14/18 21:35 Ur Squamous Epith Cells Present (Absent) A 08/14/18 21:35 Urine Bacteria 1+ (Absent) A 08/14/18 21:35 Hyaline Casts Present (Absent) A 08/14/18 21:35 Urine Glucose Negative (Negative) 08/15/18 06:05 Fluid Source Peritonial fluid 08/14/18 20:30 Fluid Volume 4500.0 mL 08/14/18 20:30 Fluid Color [place] 08/14/18 20:30 Fluid Appearance Cloudy 08/14/18 20:30 Fluid WBC 8365 /mcL (0-739434) 08/14/18 20:30 Fluid RBC 20984 /mcL 08/14/18 20:30 Fluid Tot Cell Count 100 08/14/18 20:30 Fluid Neutrophils 90 % 08/14/18 20:30 Fluid Lymphocytes 2 % 08/14/18 20:30 Fluid Monocytes 8 % 08/14/18 20:30 Fluid Other Cells 10 08/14/18 20:30 Influenza A (Rapid) Negative (Negative) 08/14/18 12:24 Influenza B (Rapid) Negative (Negative) 08/14/18 12:24 - Objective Active Medications: Aspirin (Aspirin Ec Tab*) 81 mg PO DAILY ON [facility] OF [facility] Last Admin: 08/15/18 09:48 Dose: 81 mg Furosemide (Lasix Iv*) 20 mg IV 0800,1700 ON [facility] OF [facility] Last Admin: 08/15/18 09:48 Dose: 20 mg Heparin Sodium (Porcine) (Heparin Vial(*)) 5,000 units SUBCUT Q8HR ON LICENSE OF [facility] Last Admin: 08/15/18 06:07 Dose: 5,000 units Ceftriaxone Sodium 1 gm/ (Sodium Chloride) 50 mls @ 200 mls/hr IVPB Q24H ON [facility] OF [facility] Last Admin: 08/14/18 17:39 Dose: 200 mls/hr Lactulose (Lactulose*) 30 ml PO QID ON [facility] Last Admin: 08/15/18 09:48 Dose: 30 ml Metoprolol Succinate (Toprol Xl Tab*) 12.5 mg PO BID ON [facility] OF [facility] Last Admin: 08/15/18 09:49 Dose: Not Given Morphine Sulfate (Morphine Vial*) 1 mg IV Q4H PRN PRN Reason: PAIN - MILD Last Admin: 08/14/18 22:57 Dose: 1 mg Pantoprazole Sodium (Protonix Tab (Nf)) 40 mg PO BID ON [facility] Last Admin: 08/15/18 09:48 Dose: 40 mg Rifaximin (Xifaxan*) 550 mg PO BID ON [facility] Last Admin: 08/15/18 09:48 Dose: 550 mg Vital Signs: Vital Signs: Temp Pulse Resp BP Pulse Ox 98.2 F 82 16 96/42 96 08/15/18 11:32 08/15/18 11:32 08/15/18 11:32 08/15/18 11:32 08/15/18 11:32 Patient Weight: Weight 101.378 kg Intake and Output: Intake & Output 08/13/18 08/14/18 08/15/18 08/16/18 06:59 06:59 06:59 06:59 Intake Total 285 Output Total 7143 400 Balance -6840 -400 Weight 101.378 kg Intake: IV Fluids 100 MAGNESIUM 100 IVPB 55 ceftriaxone 55 Oral 130 Output: Urine 875 Vogt 1150 400 Irrigation 5100 Other: Other Amount Description Paracentesis fluid ADLs: Meal Record Start: 08/14/18 16: 25 Freq: Status: Active Protocol: Created 08/14/18 16:25 System (Rec: 08/14/18 16:25 System [id number]) Intake and Output Start: 08/14/18 10: 14 Freq: Status: Active Protocol: Created 08/14/18 10:14 System (Rec: 08/14/18 10:14 System [id number]) Intake and Output Start: 08/14/18 16: 25 Freq: DAILY@0600,1400,2200 Status: Active Protocol: Created 08/14/18 16:25 System (Rec: 08/14/18 16:25 System [id number]) Document 08/14/18 20:04 [id number] (Rec: 08/14/18 20:07 [id number] [id number]) Document 08/14/18 21:54 [id number] (Rec: 08/14/18 21:54 [id number] SSU-M07) Document 08/14/18 22:00 [id number] (Rec: 08/14/18 22:12 [id number] SSU-M17) Document 08/14/18 23:00 [id number] (Rec: 08/15/18 00:02 [id number] SSU-C05) Document 08/15/18 01:01 [id number] (Rec: 08/15/18 01:01 [id number] SSU-M17) Document 08/15/18 04:52 [id number] (Rec: 08/15/18 04:53 [id number] SSU-M17) Document 08/15/18 05:48 [id number] (Rec: 08/15/18 05:48 [id number] SSU-M17) Document 08/15/18 06:18 [id number] (Rec: 08/15/18 06:19 [id number] [id number]) Head: Normal Neck: NL Appearance and Movements; NL JVP Cardiovascular: NL Sounds; No Murmurs; No JVD Respiratory: Clear to Auscultation - limited effort Abdominal: NL Sounds; No Tenderness; No Distention - distended abdomen bc of acsites Extremities: - - bilateral pitting edema Neurological: Alert and Oriented x 3 - Assessment Assessment: 78 yo male with liver disease, CAD with ileus . - Plan Consult Plan (MU): Palliative Plan: Spoke with patient about treatment options. He still wants to have CPR but is not sure about intubation but I would like to discuss it with his being present. The MOLST was discussed but not completed. He is not interested in hospice at this time. He realizes he has had 10 admissions this last year. When asked about [facility] he says he doesn't need help his cares for him. He has a good quality of life ambulates with a cane, does all his ADLs and works when he is able. Discussed symptoms of being more tired and staying in bed and about decreased appetite but he denies these symptoms aside from this illness. Will follow along. - Time On Unit Date of Evaluation: 08/15/18 Hospice Consult Time in: 11:00 Hospice Consult Time Out: 12:00 Hospice Consult Time Total: 60 > 50% of Time Spend In Counseling or Coordinating Care: Yes
--- NOTE | 2018-08-15 16:08 | PN ---
Subjective Date of Service: 08/15/18 Interval History: No more N&V. Pt states he had 3 BM's today, the usual number for him while on lactulose. Pain is also gone. Objective Active Medications: Aspirin (Aspirin Ec Tab*) 81 mg PO DAILY [facility] Last Admin: 08/15/18 09:48 Dose: 81 mg Furosemide (Lasix Iv*) 20 mg IV 0800,1700 [facility] Last Admin: 08/15/18 09:48 Dose: 20 mg Heparin Sodium (Porcine) (Heparin Vial(*)) 5,000 units SUBCUT Q8HR [facility] Last Admin: 08/15/18 14:33 Dose: 5,000 units Ceftriaxone Sodium 1 gm/ (Sodium Chloride) 50 mls @ 200 mls/hr IVPB Q24H [facility] Last Admin: 08/14/18 17:39 Dose: 200 mls/hr Lactulose (Lactulose*) 30 ml PO QID [facility] Last Admin: 08/15/18 13:02 Dose: 30 ml Metoprolol Succinate (Toprol Xl Tab*) 12.5 mg PO BID [facility] Last Admin: 08/15/18 09:49 Dose: Not Given Morphine Sulfate (Morphine Vial*) 1 mg IV Q4H PRN PRN Reason: PAIN - MILD Last Admin: 08/14/18 22:57 Dose: 1 mg Pantoprazole Sodium (Protonix Tab (Nf)) 40 mg PO BID [facility] Last Admin: 08/15/18 09:48 Dose: 40 mg Rifaximin (Xifaxan*) 550 mg PO BID [facility] Last Admin: 08/15/18 09:48 Dose: 550 mg Vital Signs - 8 hr 08/15/18 11:32 Temperature 98.2 F Pulse Rate 82 Respiratory 16 Rate Blood Pressure 96/42 (mmHg) O2 Sat by Pulse 96 Oximetry Oxygen Devices in Use Now: None, CPAP Appearance: Alert, partly up in bed. In good spirits. Looks comfortable. Eyes: No Scleral Icterus Neck: NL Appearance and Movements; NL JVP, No Thyroid Enlargement, Masses Respiratory: Symmetrical Chest Expansion and Respiratory Effort, Clear to Auscultation, Clear to Percussion Cardiovascular: NL Sounds; No Murmurs; No JVD, RRR, - Abdominal: - - massive ascites. Not tender. Nl BS. Soft. Extremities: No Clubbing, Cyanosis, - - 2-3+ edema BL Skin: No Rash or Ulcers, No Nodules or Sclerosis, - Neurological: Alert and Oriented x 3, NL Sensation Result Diagrams: 08/15/18 05:28 08/15/18 05:28 Microbiology and Other Data: Microbiology 08/14/18 20:30 Sterile Body Fluid Culture - Preliminary Peritoneal Fluid Sterile Body Fluid Culture - Preliminary 08/14/18 13:25 Aerobic Blood Culture - Preliminary Blood Venous No Growth Day 1 Anaerobic Blood Culture - Preliminary No Growth Day 1 08/14/18 11:29 Aerobic Blood Culture - Preliminary Blood Venous No Growth Day 1 Anaerobic Blood Culture - Preliminary No Growth Day 1 08/14/18 20:30 Gram Stain - Final Body Fluid - Peritoneal 08/14/18 12:00 Influenza Types A,B Antigen - Final Nasal Specimen received for Influenza A/B Molecular testing Assess/Plan/Problems-Billing Assessment: - Patient Problems (1) Cirrhosis, cryptogenic Current Visit: No Status: Acute Code(s): K74.69 - OTHER CIRRHOSIS OF LIVER SNOMED Code(s): 59225064 Comment: - s/p TIPS 02/2018 , under the care of Dr. Looney (GI/hepatology from [place]) - cont rifaximin 550 mg bid, lactulose 30 ml QID. Stop IV furosemide (one dose 08/15), start po furosemide 40 mg daily on 08/16. Pt states this dose worked well for him at home. 5 L removed by paracentesis 08/14/18. (2) Chronic renal disease, stage 4, severely decreased glomerular filtration rate (GFR) between 15-29 mL/min/1.73 square meter Current Visit: No Status: Acute Code(s): N18.4 - CHRONIC KIDNEY DISEASE, STAGE 4 (SEVERE) SNOMED Code(s): 385864321 Comment: Repeat BMP 08/16. Hopefully Vogt inserted 08/15 will improve renal function. (3) Urinary retention Current Visit: Yes Status: Acute Code(s): R33.9 - RETENTION OF URINE, UNSPECIFIED SNOMED Code(s): 361558001 Comment: Vogt inserted 08/15. Scan showed 973 ml residual. (4) CAD (coronary artery disease) Current Visit: No Status: Acute Code(s): I25.10 - ATHSCL HEART DISEASE OF 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 Continue ASA, metoprolol -Plavix on hold since last admisson for GI bleed
[2018-08-15] MEDS: cefTRIAXone(*) 1 GM in NS 0.9% 50 ML* 50 ML IVPB SCH (17:43)
[2018-08-15] MEDS: Morphine VIAL* 4 MG/ML VIAL (1 ml vial) IV PRN (21:09)
[2018-08-16] MEDS: Heparin VIAL(*) 5000 UNITS/ML VIAL (FIVE THOUSAND) SUBCUT SCH ×3 (06:01→22:07)
[2018-08-16 06:58] LABS: BUN/Creatinine Ratio 12.8 (8-20); Calcium 7.4 mg/dL (8.6-10.3); EGFR Non-African American 26.1 (>60)
[2018-08-16] MEDS: Furosemide TAB* 40 MG PO SCH (08:21)
[2018-08-16] MEDS: RiFAXimin* 550 MG TAB PO SCH ×2 (08:21→20:23)
[2018-08-16] MEDS: Metoprolol Succinate XL TAB* 25 MG PO SCH ×2 (08:21→20:23)
[2018-08-16] MEDS: Aspirin EC TAB* 81 MG TAB.EC PO SCH (08:21)
[2018-08-16] MEDS: Pantoprazole TAB * 40 MG TAB PO SCH ×2 (08:21→20:25)
[2018-08-16] MEDS ORDERED: NS 0.9% 1000 ML* 1,000 ML IV SCH (10:45)
[2018-08-16] MEDS: cefTRIAXone(*) 1 GM in NS 0.9% 50 ML* 50 ML IVPB SCH (17:04)
[2018-08-16] MEDS: Morphine VIAL* 4 MG/ML VIAL (1 ml vial) IV PRN (20:22)
[2018-08-16] MEDS: Tamsulosin CAP* 0.4 MG PO SCH (20:25)
[2018-08-17] MEDS: Heparin VIAL(*) 5000 UNITS/ML VIAL (FIVE THOUSAND) SUBCUT SCH ×3 (05:11→21:30)
[2018-08-17 07:40] LABS: ABS Basophils 0 10^3/ul (0-0.2); ABS Eosinophils 0.1 10^3/ul (0-0.6); ABS Lymphocytes 0.4 10^3/ul (1.0-4.8); ABS Monocytes 0.4 10^3/ul (0-0.8); ABS Neutrophils 1.7 10^3/ul (1.5-7.7); ABS Nucleated RBC 0 10^3/ul; Eosinophil % 2.7 %; Hematocrit 24 % (42-52); Lymphocyte % 16.8 %; Mean Corpuscular HGB Conc 34 g/dl (31-36); Mean Corpuscular Hemoglobin 31 pg (27-31); Mean Corpuscular Volume 92 fL (80-94); Mean Platelet Volume 6.9 fL (7.4-10.4); Nucleated Red Blood Cells % 0; Platelet Count 131 10^3/ul (150-450); Red Blood Count 2.59 10^6/ul (4.00-5.40); Red Cell Distribution Width 18 % (10.5-15); White Blood Count 2.6 10^3/ul (3.5-10.8)
[2018-08-17 07:51] LABS: BUN/Creatinine Ratio 13.2 (8-20); Calcium 6.9 mg/dL (8.6-10.3); EGFR Non-African American 28.2 (>60); Potassium 4.4 mmol/L (3.5-5.0)
--- NOTE | 2018-08-17 09:16 | PN ---
Subjective Date of Service: 08/16/18 Interval History: Note for 08/16/18: Patient doing well, continues to have many BM's due to lactulose, No pain. Tolerating diet. Objective Active Medications: Aspirin (Aspirin Ec Tab*) 81 mg PO DAILY [facility] Last Admin: 08/16/18 08:21 Dose: 81 mg Furosemide (Lasix Tab*) 40 mg PO DAILY [facility] Last Admin: 08/16/18 08:21 Dose: 40 mg Heparin Sodium (Porcine) (Heparin Vial(*)) 5,000 units SUBCUT Q8HR [facility] Last Admin: 08/17/18 05:11 Dose: 5,000 units Ceftriaxone Sodium 1 gm/ (Sodium Chloride) 50 mls @ 200 mls/hr IVPB Q24H [facility] Last Admin: 08/16/18 17:04 Dose: 200 mls/hr Sodium Chloride (Ns 0.9% 1000 Ml*) 1,000 mls @ 125 mls/hr IV PER RATE [facility] Last Admin: 08/16/18 11:29 Dose: 125 mls/hr Lactulose (Lactulose*) 30 ml PO QID [facility] Last Admin: 08/16/18 20:26 Dose: Not Given Metoprolol Succinate (Toprol Xl Tab*) 12.5 mg PO BID [facility] Last Admin: 08/16/18 20:23 Dose: 12.5 mg Morphine Sulfate (Morphine Vial*) 1 mg IV Q4H PRN PRN Reason: PAIN - MILD Last Admin: 08/16/18 20:22 Dose: 1 mg Pantoprazole Sodium (Protonix Tab (Nf)) 40 mg PO BID [facility] Last Admin: 08/16/18 20:25 Dose: 40 mg Rifaximin (Xifaxan*) 550 mg PO BID [facility] Last Admin: 08/16/18 20:23 Dose: 550 mg Tamsulosin HCl (Flomax Cap*) 0.4 mg PO BEDTIME [facility] Last Admin: 08/16/18 20:25 Dose: 0.4 mg Vital Signs - 8 hr 08/17/18 08/17/18 03:37 07:28 Temperature 98.1 F 98.9 F Pulse Rate 67 72 Respiratory 18 20 Rate Blood Pressure 92/44 103/47 (mmHg) O2 Sat by Pulse 96 95 Oximetry Oxygen Devices in Use Now: None Appearance: Alert, partly up in bed. In good spirits. Looks comfortable. Eyes: No Scleral Icterus Abdominal: - - massive ascites. nl BS. Extremities: No Clubbing, Cyanosis, - - 1+ edema BL Skin: No Rash or Ulcers, No Nodules or Sclerosis, - Neurological: Alert and Oriented x 3, NL Sensation Result Diagrams: 08/17/18 07:04 08/17/18 07:04 Microbiology and Other Data: Microbiology 08/14/18 20:30 Sterile Body Fluid Culture - Preliminary Peritoneal Fluid Sterile Body Fluid Culture - Preliminary 08/14/18 13:25 Aerobic Blood Culture - Preliminary Blood Venous No Growth Day 1 Anaerobic Blood Culture - Preliminary No Growth Day 1 08/14/18 11:29 Aerobic Blood Culture - Preliminary Blood Venous No Growth Day 1 Anaerobic Blood Culture - Preliminary No Growth Day 1 08/14/18 20:30 Gram Stain - Final Body Fluid - Peritoneal 08/14/18 12:00 Influenza Types A,B Antigen - Final Nasal Specimen received for Influenza A/B Molecular testing Assess/Plan/Problems-Billing Assessment: - Patient Problems (1) Cirrhosis, cryptogenic Current Visit: No Status: Acute Code(s): K74.69 - OTHER CIRRHOSIS OF LIVER SNOMED Code(s): 67662849 Comment: - s/p TIPS 02/2018 , under the care of Dr. Looney (GI/hepatology from [facility]) - cont rifaximin 550 mg bid, lactulose 30 ml QID. Continue po furosemide 40 mg ze. Pt states this dose worked well for him at home. 5 L removed by paracentesis 08/14/18. Creatinine up to 2.43, will start NSS, repeat BMP 08/17. (2) Chronic renal disease, stage 4, severely decreased glomerular filtration rate (GFR) between 15-29 mL/min/1.73 square meter Current Visit: No Status: Acute Code(s): N18.4 - CHRONIC KIDNEY DISEASE, STAGE 4 (SEVERE) SNOMED Code(s): 176684767 Comment: Repeat BMP 08/16. Hopefully Vogt inserted 08/15 will improve renal function. (3) Urinary retention Current Visit: Yes Status: Acute Code(s): R33.9 - RETENTION OF URINE, UNSPECIFIED SNOMED Code(s): 213079832 Comment: Vogt inserted 08/15. Scan showed 973 ml residual. 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 Continue ASA, metoprolol -Plavix on hold since last admisson for GI bleed (5) Acute blood loss anemia Current Visit: No Status: Acute Code(s): D62 - ACUTE POSTHEMORRHAGIC ANEMIA SNOMED Code(s): 770389860 Comment: H/o GI bleed h/o MGUS h/o pancytopenia thought to be due to liver disease. Hb down to 7.1 08/16, hX CAD. Will transfuse 2 U PRBC.
[2018-08-17] MEDS: Furosemide TAB* 40 MG PO SCH (09:21)
[2018-08-17] MEDS: Aspirin EC TAB* 81 MG TAB.EC PO SCH (09:21)
[2018-08-17] MEDS: Pantoprazole TAB * 40 MG TAB PO SCH ×2 (09:21→21:29)
[2018-08-17] MEDS: Metoprolol Succinate XL TAB* 25 MG PO SCH ×2 (09:21→21:30)
[2018-08-17] MEDS: RiFAXimin* 550 MG TAB PO SCH ×2 (09:26→21:29)
--- NOTE | 2018-08-17 15:42 | PN ---
Progress Note - Progress Note Date of Service: 08/17/18 Note: Time spent on discharge including exam of patient, discussion with patient, , CM, nurse, Dr. Johnston, review of EMR and preparation of discharge documents is 50 minutes.
[2018-08-17] MEDS: cefTRIAXone(*) 1 GM in NS 0.9% 50 ML* 50 ML IVPB SCH ×2 (19:18→23:20)
--- NOTE | 2018-08-17 20:38 | PN ---
Subjective Date of Service: 08/17/18 Interval History: Addition to today's note: In the afternoon of 08/17 patient c/o more abdominal pain. Objective Active Medications: Aspirin (Aspirin Ec Tab*) 81 mg PO DAILY [facility] Last Admin: 08/17/18 09:21 Dose: 81 mg Furosemide (Lasix Tab*) 40 mg PO DAILY [facility] Last Admin: 08/17/18 09:21 Dose: 40 mg Heparin Sodium (Porcine) (Heparin Vial(*)) 5,000 units SUBCUT Q8HR [facility] Last Admin: 08/17/18 17:27 Dose: Not Given Ceftriaxone Sodium 1 gm/ (Sodium Chloride) 50 mls @ 200 mls/hr IVPB Q24H [facility] Last Admin: 08/17/18 19:18 Dose: Not Given Lactulose (Lactulose*) 30 ml PO QID [facility] Last Admin: 08/17/18 18:39 Dose: 30 ml Metoprolol Succinate (Toprol Xl Tab*) 12.5 mg PO BID [facility] Last Admin: 08/17/18 09:21 Dose: 12.5 mg Morphine Sulfate (Morphine Vial*) 1 mg IV Q4H PRN PRN Reason: PAIN - MILD Last Admin: 08/16/18 20:22 Dose: 1 mg Pantoprazole Sodium (Protonix Tab (Nf)) 40 mg PO BID [facility] Last Admin: 08/17/18 09:21 Dose: 40 mg Rifaximin (Xifaxan*) 550 mg PO BID [facility] Last Admin: 08/17/18 09:26 Dose: 550 mg Tamsulosin HCl (Flomax Cap*) 0.4 mg PO BEDTIME [facility] Last Admin: 08/16/18 20:25 Dose: 0.4 mg Vital Signs - 8 hr 08/17/18 08/17/18 15:37 18:48 Temperature 98.2 F 97.6 F Pulse Rate 77 75 Respiratory 18 20 Rate Blood Pressure 111/47 116/47 (mmHg) O2 Sat by Pulse 97 99 Oximetry Oxygen Devices in Use Now: None Result Diagrams: 08/17/18 07:04 08/17/18 07:04 Microbiology and Other Data: Microbiology 08/14/18 20:30 Sterile Body Fluid Culture - Preliminary Peritoneal Fluid Sterile Body Fluid Culture - Preliminary 08/14/18 13:25 Aerobic Blood Culture - Preliminary Blood Venous No Growth Day 1 Anaerobic Blood Culture - Preliminary No Growth Day 1 08/14/18 11:29 Aerobic Blood Culture - Preliminary Blood Venous No Growth Day 1 Anaerobic Blood Culture - Preliminary No Growth Day 1 08/14/18 20:30 Gram Stain - Final Body Fluid - Peritoneal 08/14/18 12:00 Influenza Types A,B Antigen - Final Nasal Specimen received for Influenza A/B Molecular testing Assess/Plan/Problems-Billing Assessment: - Patient Problems (1) Cirrhosis, cryptogenic Current Visit: No Status: Acute Code(s): K74.69 - OTHER CIRRHOSIS OF LIVER SNOMED Code(s): 39797194 Comment: - s/p TIPS 02/2018 , under the care of Dr. Looney (GI/hepatology from [place]) - cont rifaximin 550 mg bid, lactulose 30 ml QID. Continue po furosemide 40 mg ze. Pt states this dose worked well for him at home. 5 L removed by paracentesis 08/14/18. Creatinine up to 2.43, will start NSS, repeat BMP 08/17. (2) Chronic renal disease, stage 4, severely decreased glomerular filtration rate (GFR) between 15-29 mL/min/1.73 square meter Current Visit: No Status: Acute Code(s): N18.4 - CHRONIC KIDNEY DISEASE, STAGE 4 (SEVERE) SNOMED Code(s): 642358715 Comment: Repeat BMP 08/16. Hopefully Vogt inserted 08/15 will improve renal function. (3) Urinary retention Current Visit: Yes Status: Acute Code(s): R33.9 - RETENTION OF URINE, UNSPECIFIED SNOMED Code(s): 571464248 Comment: Vogt inserted 08/15. Scan showed 973 ml residual. 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 Continue ASA, metoprolol -Plavix on hold since last admisson for GI bleed (5) Acute blood loss anemia Current Visit: No Status: Acute Code(s): D62 - ACUTE POSTHEMORRHAGIC ANEMIA SNOMED Code(s): 563688563 Comment: H/o GI bleed h/o MGUS h/o pancytopenia thought to be due to liver disease. Hb down to 7.1 08/16, hX CAD. Will transfuse 2 U PRBC. (6) Peritonitis Current Visit: Yes Status: Acute Code(s): K65.9 - PERITONITIS, UNSPECIFIED SNOMED Code(s): 23457250 Comment: Strep viridans. Cetriaxone started 08/14 5 PM. Consider 7 day course.
[2018-08-17] MEDS: Tamsulosin CAP* 0.4 MG PO SCH (21:30)
[2018-08-17] MEDS: Morphine VIAL* 4 MG/ML VIAL (1 ml vial) IV PRN (21:38)
--- NOTE | 2018-08-17 23:50 | DS ---
CC: Dr. Johnston; Dr. Ruiz * DISCHARGE SUMMARY: DATE OF ADMISSION: 08/14/18 DATE OF DISCHARGE: 08/17/18 HISTORY OF PRESENT ILLNESS: This 78-year-old male presented with nausea, vomiting, and abdominal pain. He has a long history of cryptogenic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 the liver, recurrent GI bleeding. The rest of the history is detailed in the admission note. He had a repair of an incarcerated umbilical hernia on 07/16/18. He reported he gained 30 pounds since his discharge from the hospital on . His legs were edematous. He saw Dr. Ruiz, who started the patient on furosemide 40 mg IM daily, but the patient did not the tolerate this because of abdominal cramping in the reta-incision sites. A CT scan of the abdomen showed a question of ileus or small-bowel obstruction. The patient initially was made n.p.o. However, he continued to have bowel movements, he was taking his lactulose. He had bowel sounds. His diet was advanced. If he had ileus or small-bowel obstruction, this resolved quickly. He had a paracentesis of 5 L. I think that was responsible for most of the relief of his symptoms. Unfortunately, his creatinine went up. He was given some intravenous saline, his creatinine went down again. He was found to have urinary retention. The first bladder scan showed a retained volume of 973 mL. On the day of discharge , a voiding trial was done and showed a retained volume of over 600 mL. Vogt was reinserted. He did have a drop in his H and H here. On 08/15/18, his hemoglobin had fallen to 7.1. In view of his history of coronary artery disease, he was given 2 units of blood. On the day of discharge, his hemoglobin was 8.0. Creatinine peaked at 2.43 on 08/16/18; it was 2.27 on the day of discharge. I am not sure what his new baseline is; 2.2 might be his new baseline. He will continue on increased dose of furosemide 40 mg daily. Spironolactone has been stopped primarily due to hyperkalemia; his potassium when it was peaked was 5.5, on the day of discharge his potassium was 4.4. The patient was started on tamsulosin during this hospital stay. A voiding trial in Dr. Lagos's office could be considered. FINAL DIAGNOSES: 1. Strep viridans peritonitis 2. Cryptogenic cirrhosis, status post TIPS procedure February 2018. 3. Chronic stage 4 kidney disease. 4. Urinary retention. 5. Coronary artery disease. 6. Persistent blood loss anemia. DISCHARGE MEDICATIONS: 1. Tamsulosin 0.4 mg h.s. 2. Furosemide 40 mg daily. 3. Rosuvastatin 40 mg daily. 4. Aspirin 81 mg daily. 5. Metoprolol succinate 12.5 mg b.i.d. 6. Pantoprazole 40 mg b.i.d. 7. Magnesium oxide 400 mg daily. 8. Ferrous sulfate 325 mg b.i.d. 9. Lactulose 30 mL 4 times a day. 10. Rifaximin 550 mg b.i.d. [id number]/[facility] #: [id number] [facility]
[2018-08-18] MEDS: Heparin VIAL(*) 5000 UNITS/ML VIAL (FIVE THOUSAND) SUBCUT SCH ×3 (05:11→21:27)
[2018-08-18 07:03] LABS: ABS Basophils 0 10^3/ul (0-0.2); ABS Eosinophils 0.1 10^3/ul (0-0.6); ABS Lymphocytes 0.4 10^3/ul (1.0-4.8); ABS Monocytes 0.3 10^3/ul (0-0.8); ABS Neutrophils 1.4 10^3/ul (1.5-7.7); ABS Nucleated RBC 0 10^3/ul; Eosinophil % 4.5 %; Hematocrit 23 % (42-52); Hemoglobin 7.9 g/dl (14.0-18.0); Lymphocyte % 18.5 %; Mean Corpuscular HGB Conc 34 g/dl (31-36); Mean Corpuscular Hemoglobin 31 pg (27-31); Mean Corpuscular Volume 91 fL (80-94); Mean Platelet Volume 6.9 fL (7.4-10.4); Nucleated Red Blood Cells % 0.1; Platelet Count 137 10^3/ul (150-450); Red Blood Count 2.52 10^6/ul (4.00-5.40); Red Cell Distribution Width 17 % (10.5-15); White Blood Count 2.2 10^3/ul (3.5-10.8)
[2018-08-18 07:20] LABS: BUN/Creatinine Ratio 13.1 (8-20); EGFR Non-African American 30.4 (>60); Potassium 4.3 mmol/L (3.5-5.0)
[2018-08-18] MEDS: Pantoprazole TAB * 40 MG TAB PO SCH ×2 (09:33→21:32)
[2018-08-18] MEDS: Metoprolol Succinate XL TAB* 25 MG PO SCH ×2 (09:33→21:26)
[2018-08-18] MEDS: RiFAXimin* 550 MG TAB PO SCH ×2 (09:33→21:26)
[2018-08-18] MEDS: Aspirin EC TAB* 81 MG TAB.EC PO SCH (09:34)
[2018-08-18] MEDS: Furosemide TAB* 40 MG PO SCH (09:34)
--- NOTE | 2018-08-18 11:36 | PN ---
Subjective Date of Service: 08/18/18 Interval History: Patient had been set for discharge yesterday, then had increasing abdominal pain. Discharge was put on hold. There was concern for SBP w/ poor response. Patient states abdominal pain waxes and wanes. Using pain medication only at night to avoid daytime confusion. No encephalopathic symptoms today or yesterday. Plans to see Dr. Lagos Monday for voiding trial, has schultz. Family History: Unchanged from Admission Social History: Unchanged from Admission Past Medical History: Unchanged from Admission Objective Active Medications: Aspirin (Aspirin Ec Tab*) 81 mg PO DAILY [facility] Last Admin: 08/18/18 09:34 Dose: 81 mg Furosemide (Lasix Tab*) 40 mg PO DAILY [facility] Last Admin: 08/18/18 09:34 Dose: 40 mg Heparin Sodium (Porcine) (Heparin Vial(*)) 5,000 units SUBCUT Q8HR [facility] Last Admin: 08/18/18 05:11 Dose: 5,000 units Ceftriaxone Sodium 1 gm/ (Sodium Chloride) 50 mls @ 200 mls/hr IVPB 2200 [facility] Last Admin: 08/17/18 23:20 Dose: 200 mls/hr Lactulose (Lactulose*) 30 ml PO QID [facility] Last Admin: 08/18/18 09:33 Dose: 30 ml Metoprolol Succinate (Toprol Xl Tab*) 12.5 mg PO BID [facility] Last Admin: 08/18/18 09:33 Dose: 12.5 mg Morphine Sulfate (Morphine Vial*) 1 mg IV Q4H PRN PRN Reason: PAIN - MILD Last Admin: 08/17/18 21:38 Dose: 1 mg Pantoprazole Sodium (Protonix Tab (Nf)) 40 mg PO BID [facility] Last Admin: 08/18/18 09:33 Dose: 40 mg Rifaximin (Xifaxan*) 550 mg PO BID [facility] Last Admin: 08/18/18 09:33 Dose: 550 mg Tamsulosin HCl (Flomax Cap*) 0.4 mg PO BEDTIME [facility] Last Admin: 08/17/18 21:30 Dose: 0.4 mg Vital Signs - 8 hr 08/18/18 08:32 Temperature 36.4 C Pulse Rate 67 Respiratory 18 Rate Blood Pressure 100/45 (mmHg) O2 Sat by Pulse 96 Oximetry Oxygen Devices in Use Now: None Appearance: alert, no distress Ears/Nose/Mouth/Throat: NL Teeth, Lips, Gums Neck: No Thyroid Enlargement, Masses Respiratory: Clear to Auscultation, Clear to Percussion Cardiovascular: NL Sounds; No Murmurs; No JVD, RRR Abdominal: - - positive bowel sounds, distended, tender throughout, no masses Extremities: - - 3+ edema bilat LE Neurological: Alert and Oriented x 3 Lines/Tubes/Other Access: Clean, Dry and Intact Peripheral IV Nutrition: Taking PO's Result Diagrams: 08/18/18 06:34 08/18/18 06:34 Microbiology and Other Data: Microbiology 08/14/18 21:35 Urine Urine Culture - Final 08/14/18 20:30 Peritoneal Fluid Sterile Body Fluid Culture - Final 08/14/18 20:30 Peritoneal Fluid Sterile Body Fluid Culture - Final Strep Salivari (Viridan Strep) Staphylococcus Warneri Strep Salivari (Viridan Strep) 08/14/18 20:30 Body Fluid - Peritoneal Gram Stain - Final 08/14/18 13:25 Blood Venous Aerobic Blood Culture - Preliminary 08/14/18 13:25 Blood Venous Anaerobic Blood Culture - Preliminary No Growth Day 3 No Growth Day 3 08/14/18 11:29 Blood Venous Aerobic Blood Culture - Preliminary 08/14/18 11:29 Blood Venous Anaerobic Blood Culture - Preliminary No Growth Day 3 No Growth Day 3 Assess/Plan/Problems-Billing Assessment: 78 yo man w/ cryptogenic cirrhosis, liver failure, CAD, here with spontaneous bacterial peritonitis. - Patient Problems (1) Peritonitis Current Visit: Yes Status: Acute Priority: High Code(s): K65.9 - PERITONITIS, UNSPECIFIED SNOMED Code(s): 02276565 Comment: -Strep viridans appears sensitive to Ceftriaxone started 08/14 5 PM. -also has staph warneri, not sensitive to ceftriaxone, this may be reason for poor response. -will discuss w/ Dr. Ricks and add 2nd agent (2) Cirrhosis, cryptogenic Current Visit: No Status: Acute Priority: Medium Code(s): K74.69 - OTHER CIRRHOSIS OF LIVER SNOMED Code(s): 01874612 Comment: - s/p TIPS 02/2018 , under the care of Dr. Looney (GI/hepatology from [place]) - cont rifaximin 550 mg bid, lactulose 30 ml QID. -Continue po furosemide 40 mg daily. -5 L removed by paracentesis 08/14/18. -Creatinine up to 2.43, 2 days ago, now improving (3) Chronic renal disease, stage 4, severely decreased glomerular filtration rate (GFR) between 15-29 mL/min/1.73 square meter Current Visit: No Status: Acute Priority: Medium Code(s): N18.4 - CHRONIC KIDNEY DISEASE, STAGE 4 (SEVERE) SNOMED Code(s): 348937737 Comment: Schultz inserted 08/15 seems to have improved renal function.
[2018-08-18] MEDS: DOXYcycline IV* 100 MG in NS 0.9% 250 ML* 250 ML IVPB SCH (13:48)
[2018-08-18] MEDS: Tamsulosin CAP* 0.4 MG PO SCH (21:26)
[2018-08-18] MEDS: cefTRIAXone(*) 1 GM in NS 0.9% 50 ML* 50 ML IVPB SCH (21:26)
[2018-08-18] MEDS: Morphine VIAL* 4 MG/ML VIAL (1 ml vial) IV PRN (21:47)
[2018-08-19] MEDS: DOXYcycline IV* 100 MG in NS 0.9% 250 ML* 250 ML IVPB SCH ×2 (00:06→11:52)
[2018-08-19] MEDS: Heparin VIAL(*) 5000 UNITS/ML VIAL (FIVE THOUSAND) SUBCUT SCH ×2 (06:03→13:31)
[2018-08-19 06:23] LABS: ABS Basophils 0 10^3/ul (0-0.2); ABS Eosinophils 0.1 10^3/ul (0-0.6); ABS Lymphocytes 0.5 10^3/ul (1.0-4.8); ABS Monocytes 0.4 10^3/ul (0-0.8); ABS Neutrophils 1.6 10^3/ul (1.5-7.7); ABS Nucleated RBC 0 10^3/ul; Eosinophil % 4.9 %; Hematocrit 24 % (42-52); Hemoglobin 8.1 g/dl (14.0-18.0); Lymphocyte % 20.4 %; Mean Corpuscular HGB Conc 34 g/dl (31-36); Mean Corpuscular Hemoglobin 30 pg (27-31); Mean Corpuscular Volume 91 fL (80-94); Mean Platelet Volume 7.2 fL (7.4-10.4); Nucleated Red Blood Cells % 0.1; Platelet Count 139 10^3/ul (150-450); Red Blood Count 2.66 10^6/ul (4.00-5.40); Red Cell Distribution Width 17 % (10.5-15); White Blood Count 2.7 10^3/ul (3.5-10.8)
[2018-08-19 06:45] LABS: BUN/Creatinine Ratio 12.6 (8-20); Calcium 6.9 mg/dL (8.6-10.3); EGFR Non-African American 34.6 (>60); Potassium 4.2 mmol/L (3.5-5.0)
[2018-08-19] MEDS: Pantoprazole TAB * 40 MG TAB PO SCH (08:59)
[2018-08-19] MEDS: Metoprolol Succinate XL TAB* 25 MG PO SCH (08:59)
[2018-08-19] MEDS: Aspirin EC TAB* 81 MG TAB.EC PO SCH (08:59)
[2018-08-19] MEDS: Furosemide TAB* 40 MG PO SCH (09:00)
[2018-08-19] MEDS: RiFAXimin* 550 MG TAB PO SCH (09:00)
[2018-08-19 10:52] VITALS: BP 106/47
[2018-08-19] MEDS ORDERED: oxyCODONE TAB* 5 MG TAB PO PRN (11:49)
--- NOTE | 2018-08-19 13:30 | DS ---
CC: Dr. Lagos; Dr. Johnston * DISCHARGE SUMMARY: ADDENDUM: DATE OF ADMISSION: 08/14/18 DATE OF DISCHARGE: 08/19/2018 HOSPITAL COURSE: The patient had some increase in abdominal pain on the day of discharge on 08/17/18. There was concern that his peritonitis was partially treated. Review of his microbiology testing from 08/14/18, cultures showed both Strep salivarius and Staphylococcus warneri. The Strep salivarius is sensitive to ceftriaxone, which the patient was taking, but the staph was not sensitive to cephalosporins. The patient was started on IV doxycycline, which the staph should be sensitive to. This change was made on 08/18/18. On , the patient had still some abdominal cramping, but was feeling better overall tolerating food, moving bowels regularly. He was ambulatory to the bathroom, but feels weak. MEDICATIONS: Medication list on discharge: 1. Aspirin 81 mg p.o. daily. 2. Metoprolol XL 12.5 mg p.o. b.i.d. 3. Pantoprazole 40 mg p.o. b.i.d. 4. Crestor 40 mg p.o. q.p.m. 5. Cefuroxime 500 mg p.o. b.i.d. for 6 days. 6. Doxycycline 100 mg p.o. b.i.d. for 6 days. 7. Ferrous sulfate 325 mg p.o. b.i.d. 8. Furosemide 40 mg p.o. daily. 9. Lactulose 30 mL p.o. 4 times a day, titrate for loose stools. 10. Magnesium oxide 400 mg p.o. daily. 11. Oxycodone 5 mg p.o. q.6 hours p.r.n. abdominal pain, we have sent in 14 tablets for the max daily dose of 2. 12. Rifaximin 550 mg p.o. b.i.d. 13. Flomax 0.4 mg p.o. q.h.s. PHYSICAL EXAMINATION: His vital signs were temperature 38.8, pulse 78, respirations 16, blood pressure is 106/47, O2 sat is 98% on room air. His physical exam is notable for lungs clear. Heart: Regular rate and rhythm. Abdomen: Distended, soft, nontender. Positive bowel sounds. Extremities: 2+ pitting edema bilaterally. LABORATORY DATA: On the day of discharge showed a white count of 2.7, hemoglobin 8.1, hematocrit 24%, platelets 139. His sodium is 134, creatinine came down from high of 2.43, down to 1.9 on discharge. HOSPITAL FOLLOWUP PLANS: He will see primary care, Dr. Johnston in 2 days on Monday for followup of hospital stay. The patient also will see Dr. Lagos on 08/20/18 for followup of his indwelling Vogt catheter and a voiding trial. [id number]/[facility] #: [id number] [facility]
[2018-08-19] MEDS ORDERED: ceFUROXime TAB(*) 250 MG PO SCH (21:00)
== END 2018-08-19 15:55 | disposition home health service (06) | DRG 372 ==
LOC: ED 10:09 → SSU 15:32 → MED 08-15 20:00
PROVIDERS: ADMIT Internal Medicine; ATTEND Internal Medicine
PROC: 0W9G3ZZ Drainage of Peritoneal Cavity, Percutaneous Approach (ICD-10-PCS; principal; 2018-08-14)
PROC: 30233N1 Transfusion of Nonautologous Red Blood Cells into Peripheral Vein, Percutaneous Approach (ICD-10-PCS; 2018-08-16)
DX: K65.2 Spontaneous bacterial peritonitis (principal); N18.4 Chronic kidney disease, stage 4 (severe); R18.8 Other ascites; D62 Acute posthemorrhagic anemia; K56.7 Ileus, unspecified; B95.4 Other streptococcus as the cause of diseases classified elsewhere; K74.69 Other cirrhosis of liver; R33.9 Retention of urine, unspecified; I25.10 Atherosclerotic heart disease of native coronary artery without angina pectoris; G47.30 Sleep apnea, unspecified; D47.2 Monoclonal gammopathy; Z91.048 Other nonmedicinal substance allergy status; I25.2 Old myocardial infarction; Z95.0 Presence of cardiac pacemaker; Z86.718 Personal history of other venous thrombosis and embolism; Z95.5 Presence of coronary angioplasty implant and graft; Z79.82 Long term (current) use of aspirin; Z79.899 Other long term (current) drug therapy; Z88.8 Allergy status to other drugs, medicaments and biological substances; Z91.040 Latex allergy status
CPT/HCPCS: 36415; 71045; 74176; 80048; 80053; 81003; 81015; 82140; 82150; 82272; 82565; 83605; 83690; 83735; 83880; 84520; 85025; 85610; 85730; 86140; 86850; 86900; 86901; 86922; 87040; 87077; 87086; 87186; 87205; 89051; 93005; 99284; A9270-GY; J0696; J1644; J1940; J2270; J2405; J3475; P9040; P9047

== ENCOUNTER → 2018-10-26 07:05 | Day surgery (SDC) | payer MEDICARE ==
[~2018-10-26 07:05] MED LIST changes: -Buffered Lidocaine 1% SYR 3ML* 3 ML/SYR SYRINGE INTRADERM ONE; -Famotidine IV* 10 MG/ML 2 ML (20 mg) IV ONE; +Heparin 2 UNITS/ML IVPREMIX* 3,000 UNIT/1,500 ML BAG IV ONE; +Iodixanol 320 (CONTRAST) 100 ML SDV ONE; +LORazepam TAB(*) 1 MG ONE; +Lidocaine 1% INJ* 10 MG/ML 30 ML SDV ONE; +Midazolam* 1 MG/ML 5 ML VIAL (5 MG) ONE; -Morphine INJ* 2 MG/ML 1 ML CARPUJECT IV PRN; -PROCHLORPERAZINE INJ 5 MG/ML 2 ML VIAL IV PRN; -fentaNYL* 50 MCG/ML 2 ML VIAL (100 MCG VIAL) IV PRN; +fentaNYL* 50 MCG/ML 2 ML VIAL (100 MCG VIAL) ONE; -oxyCODONE/Acetamin 5/325 MG* TAB PO PRN
--- NOTE | 2018-10-26 13:18 | PN ---
Progress Note - Progress Note Date of Service: 10/26/18 SOAP: Subjective: No new pain or nausea complaints. Denies SOB. Objective: Selected Entries 10/26/18 10/26/18 11:59 12:14 Pulse Rate 60 Heart Rate 95 Respiratory 19 Rate Blood Pressure 95/49 (mmHg) Blood Pressure 73 Mean NAD, AAO x 3 Right neck over IJ venotomy is soft, minimally tender to palpation Dressing with small amount of dry blood [place] is soft, non tender to palpation over the level of the pararenal IVC Assessment: 78 YOM status post venography of TIPS, CO2 cavography and IVC filter removal without complication. Plan: 1. D/C to home. 2. No specific IR follow up is necessary barring any post procedural issues.
[2018-10-26 13:23] VITALS: BP 88/61
== END | disposition home or self-care (01) ==
LOC: CHICATH 07:05
PROVIDERS: ATTEND Radiology Diagnostic Radiology
DX: Z86.718 Personal history of other venous thrombosis and embolism (principal); R18.8 Other ascites; I25.10 Atherosclerotic heart disease of native coronary artery without angina pectoris; I44.2 Atrioventricular block, complete; Z95.0 Presence of cardiac pacemaker; Z95.5 Presence of coronary angioplasty implant and graft; N18.3 Chronic kidney disease, stage 3 (moderate); G47.33 Obstructive sleep apnea (adult) (pediatric); Z87.891 Personal history of nicotine dependence; I27.22 Pulmonary hypertension due to left heart disease; I36.1 Nonrheumatic tricuspid (valve) insufficiency; K74.60 Unspecified cirrhosis of liver; D64.9 Anemia, unspecified
CPT/HCPCS: 37193; 75825; 88300; 99156; A9270-GY; C1887; J1644; J2250; J3010

== ENCOUNTER 2019-01-25 10:11 | Inpatient (IN) | payer MEDICARE ==
--- NOTE | 2019-01-25 10:29 | ED ---
Shortness of Breath - HPI Summary HPI Summary: A 79 y/o male presents to [facility] with a chief complaint of SOB since 05:00 today. At triage he rated his pain as a 0/10 in severity. He denies any CP. He says that he has blood in his stool and has swelling of his legs. He notes that even while sitting down he feels fatigued and SOB. He has a Hx of anemia and has a hernia. He uses CPAP at night and he last used Epogen yesterday. - History of Current Complaint Chief Complaint: EDShortnessOfBreath Time Seen by Provider: 01/25/19 10:17 Hx Obtained From: Patient Onset/Duration: Sudden Onset, Lasting Hours, Still Present Timing: Constant Current Severity: Mild Dyspnea At: Rest Aggravating Factors: Nothing Alleviating Factors: Nothing Associated Signs & Symptoms: Calf Pain/Swelling, Edema - Allergy/Home Medications Allergies/Adverse Reactions: Allergies Allergy/AdvReac Type Severity Reaction Status Date / Time Adhesive Tape Allergy Rash Verified 11/15/18 12:18 Horse/Equine Containing Allergy Rash Verified 11/15/18 12:18 Products latex Allergy Rash Verified 11/15/18 12:18 midodrine Allergy "Could not Verified 11/15/18 12:18 tolerate" Home Medications: Home Medications Epogen (NF) 3,000 units SEE INSTRUCTIONS 01/25/19 [History Confirmed 01/25/19] Lactulose* 30 ml PO TID 01/25/19 [History Confirmed 01/25/19] Nadolol [Corgard] 1 tab PO DAILY 01/25/19 [History Confirmed 01/25/19] PMH/Surg Hx/FS Hx/Imm Hx Endocrine/Hematology History: Reports: Hx Anemia, Hx Unexplained Bleeding, Other Endocrine/Hematological Disorders - hx neutropenia Denies: Hx Anticoagulant Therapy - failed d/t bleeding - only takes ASA daily , Hx Diabetes Cardiovascular History: Reports: Hx Angina, Hx Coronary Artery Disease, Hx Deep Vein Thrombosis - with filter in place , Hx Hypercholesterolemia, Hx Hypertension, Hx Myocardial Infarction, Hx Pacemaker/ICD - pacemaker Denies: Hx Cardiac Arrest, Hx Cardiomegaly, Hx Congenital Heart Disease, Hx Congestive Heart Failure, Hx Embolism, Hx Hypotension, Hx Rheumatic Fever, Hx Syncope, Hx Valvular Heart Disease Respiratory History: Reports: Hx Pleural Effusion, Hx Sleep Apnea - current CPAP user Denies: Hx Asthma, Hx Chronic Obstructive Pulmonary Disease (COPD) GI History: Reports: Hx Cirrhosis - s/p TIPS, Hx Gall Bladder Disease, Hx Gastroesophageal Reflux Disease, Hx Gastrointestinal Bleed, Hx Irritable Bowel, Other GI Disorders - brijesh, jessika'y, S/P TIPS at [facility] Denies: Hx Crohn's Disease, Hx Diverticulosis, Hx Hiatal Hernia History: Reports: Hx Chronic Renal Failure, Other Problems/Disorders - weak bladder s/p bladder cancer, colon polyps Denies: Hx Renal Disease Musculoskeletal History: Reports: Other Musculoskeletal History - hammer toes, both feet, had sx. Denies: Hx Rheumatoid Arthritis Sensory History: Reports: Hx Contacts or Glasses Denies: Hx Deafness, Hx Hearing Aid, Hx Hearing Problem, Other Sensory Impairments Opthamlomology History: Reports: Hx Contacts or Glasses Denies: Other Sensory Impairments Neurological History: Denies: Hx Dementia, Hx Developmental Delay, Hx Headaches, Hx Migraine, Hx Nerve Disease, Hx Seizures, Hx Spinal Cord Injury, Hx Transient Ischemic Attacks (TIA), Other Neuro Impairments/Disorders Psychiatric History: Denies: Hx Autism, Hx Schizophrenia - Cancer History Cancer Type, Location and Year: bladder cancer Hx Chemotherapy: No - Surgical History Surgery Procedure, Year, and Place: cataract surgery with lens implants bilat eyes. hammer toe repair bilat feet. appendectomy. cholecystectomy. cardiac stents 2018. TIPS. surg for colonic polyps. colonoscopy with polyp removal 2018 Hx Anesthesia Reactions: No - Immunization History Date of Tetanus Vaccine: unk Date of Influenza Vaccine: fall 2017 Infectious Disease History: No Infectious Disease History: Denies: Hx Clostridium Difficile, Hx Hepatitis, Hx Human Immunodeficiency Virus (HIV), Hx of Known/Suspected MRSA, Hx Shingles, Hx Tuberculosis, Traveled Outside the [place] in Last 30 Days - Family History Known Family History: Positive: Cardiac Disease Negative: Hypertension, Diabetes - Social History Alcohol Use: None Alcohol Amount: none since August 2017 when issues started Hx Substance Use: No Substance Use Type: Reports: None Hx Tobacco Use: Yes - not currently Smoking Status (MU): Former Smoker Type: Cigarettes Have You Smoked in the Last Year: No Review of Systems Positive: Fatigue. Negative: Fever Positive: Shortness Of Breath Positive: Other - positive: blood in stool Positive: Edema All Other Systems Reviewed And Are Negative: Yes Physical Exam - Summary Physical Exam Summary: Appearance: Well appearing, no pain distress Skin: warm, dry, reflects adequate perfusion Head/face: normal Eyes: EOMI, MANJULA, pale conjunctiva ENT: normal Neck: supple, non-tender Respiratory: CTA, breath sounds present Cardiovascular: RRR, pulses symmetrical Abdomen: non-tender, soft Musculoskeletal: normal, strength/ROM intact, mild pitting edema Neuro: normal, sensory motor intact, A&Ox3 Triage Information Reviewed: Yes Vital Signs On Initial Exam: Initial Vitals Temp Pulse Resp BP Pulse Ox 97.5 F 50 16 101/34 100 01/25/19 10:13 01/25/19 10:13 01/25/19 10:13 01/25/19 10:13 01/25/19 10:13 Vital Signs Reviewed: Yes Diagnostics - Vital Signs Vital Signs Temp Pulse Resp BP Pulse Ox 01/25/19 10:13 97.5 F 50 16 101/34 100 - Laboratory Result Diagrams: 01/25/19 10:50 01/25/19 10:50 Lab Statement: Any lab studies that have been ordered have been reviewed, and results considered in the medical decision making process. - Radiology CXR Radiology Interpretation Completed By: Radiologist Summary of Radiographic Findings: NO ACTIVE CARDIOPULMONARY DISEASE. ED physician has reviewed this imaging report. - EKG 10:36 Cardiac Rate: Other Rate - Paced rhythm at 52 bpm Summary of EKG Findings: An EKG at 10:36 revealed paced rhythm at 52bpm. Re-Evaluation - Re-Evaluation First Eval Re-Evaluation Time: 11:28 Change: Unchanged Comment: Pt reports oncologist is Dr. Guillen. Second Eval Re-Evaluation Time: 13:00 Change: Unchanged Comment: Discussed results and plan for admission. Course/Dx - Course Course Of Treatment: A 79 y/o male presents to [facility] with a chief complaint of SOB since 05:00 today. The physical exam revealed mild pitting edema and pale conjunctiva. An EKG at 10:36 revealed paced rhythm at 52bpm. Blood work and chemistries obtained. CXR impression: NO ACTIVE CARDIOPULMONARY DISEASE. Blood work and chemistries obtained. The patient will be admitted. Dx: dyspnea, anemia , renal failure, rule out PE. Discussed case with Dr. Edwards, hospitalist, who accepted the patient for admssion. The patient is agreeable with this plan. - Diagnoses Provider Diagnoses: Renal failure, Anemia, Dyspnea - Physician Notifications Discussed Care of Patient With: Luis Manuel Edwards Time Discussed With Above Provider: 12:54 Instructed by Provider To: Admit As Inpatient Discharge - Sign-Out/Discharge Documenting (check all that apply): Patient Departure - admit All imaging exams completed and their final reports reviewed: Yes Patient Received Moderate/Deep Sedation with Procedure: No - Discharge Plan Condition: Fair Disposition: ADMITTED TO [facility] - Billing Disposition and Condition Condition: FAIR Disposition: Admitted to [facility] - Attestation Statements Document Initiated by Scribe: Yes Documenting Scribe: Patrick Baum Provider For Whom Scribe is Documenting (Include Credential): Prashanth Cadena MD Scribe Attestation: Patrick Lal, scribed for Prashanth Cadena MD on 01/25/19 at [id number]. Scribe Documentation Reviewed: Yes Provider Attestation: The documentation as recorded by the Patrick carvajal accurately reflects the service I personally performed and the decisions made by Prashanth patel MD Status of Scribe Document: Viewed
[2019-01-25 11:06] LABS: ABS Eosinophils 0.1 10^3/ul (0-0.6); ABS Lymphocytes 0.6 10^3/ul (1.0-4.8); ABS Monocytes 0.2 10^3/ul (0-0.8); ABS Neutrophils 1.1 10^3/ul (1.5-7.7); Eosinophil % 3.4 %; Hematocrit 20 % (42-52); Hemoglobin 6.8 g/dL (14.0-18.0); Lymphocyte % 29.5 %; Mean Corpuscular HGB Conc 34 g/dL (31-36); Mean Corpuscular Hemoglobin 33 pg (27-31); Mean Corpuscular Volume 99 fL (80-94); Mean Platelet Volume 7.4 fL (7.4-10.4); Platelet Count 133 10^3/uL (150-450); Red Blood Count 2.02 10^6 /uL (4.18-5.48); Red Cell Distribution Width 17 % (10-15); White Blood Count 2.1 10^3/uL (3.5-10.8)
[2019-01-25 11:18] LABS: Activated Partial Thrombo Time 36.2 seconds (26.0-38.0); INR 1.05 (0.82-1.09)
[2019-01-25 11:22] LABS: Albumin 2.1 g/dL (3.2-5.2); Albumin/Globulin Ratio 0.6 (1-3); BUN/Creatinine Ratio 14.5 (8-20); EGFR African American 29.6 (>60); EGFR Non-African American 24.5 (>60); Globulin 3.8 g/dL (2-4); Potassium 4.8 mmol/L (3.5-5.0); Total Bilirubin 0.5 mg/dL (0.2-1.0); Total Protein 5.9 g/dL (6.4-8.9)
--- NOTE | 2019-01-25 15:32 | HP ---
CC: Dr. Franklyn Johnston; Dr. Guillen; Dr. Ruiz; Dr. Ward * HISTORY AND PHYSICAL: DATE OF ADMISSION: 01/25/19 PRIMARY CARE PROVIDER: Dr. Franklyn Johnston. OTHER PROVIDERS: Dr. Guillen, Dr. Ruiz, Dr. Ward. ATTENDING PHYSICIAN: Dr. Edwards * (dictated by KATIE Kim). CHIEF COMPLAINT: Shortness of breath. HISTORY OF PRESENT ILLNESS: Mr. Ashford is a 79-year-old male with a past medical history of CAD, cryptogenic liver cirrhosis, recurrent GI bleed, and anemia who presents to the ER today with complaints of shortness of breath since 5:00 a.m. He states that he woke up, removed his CPAP, and began to experience shortness of breath. He states that this typically occurs when his hemoglobin is less than 7. He has just started treatment with Epogen and has had 3 doses so far; last dose was last night at 1930. He notes that he has shortness of breath at rest. He states that this is worse with activity including walking. He typically walks with a cane. He states that within the last 2 weeks he has been positive for heme in stool at both Dr. Guillen's and Dr. Johnston's office. He denies hematemesis, hematochezia, and melena, although he does note that his stool is dark, which he attributes to iron pills. He notes no color changes to his stool recently. He does admit to slight diffuse abdominal pain. He feels that he may have somewhat worsening ascites, last paracentesis was in July. Associated with his shortness of breath is extreme fatigue. He does have dizziness and lightheadedness with ambulation. He denies chest pain or cough. He denies fever or chills. He does note chronic lower extremity edema, which has decreased since he began using home pumps. While in the ER, the patient received a full workup which included chest x- ray , within normal limits. EKG revealing rate of [address] changes. Lab work which revealed pancytopenia including H and H of 6.8 and 20, respectively. He was noted to have an elevated D-dimer. His creatinine is elevated above baseline. In the ER, 2 units of packed red blood cells have been ordered. V/Q scan is also ordered and is pending. Hospitalist team was asked to evaluate the patient for admission. PAST MEDICAL HISTORY: 1. Cryptogenic liver cirrhosis, TIPS in 2018. 2. Coronary artery disease, stent placement in 2007 and 2018. 3. Recurrent GI bleed, polyp removal in 2018. 4. Anemia. 5. CKD. 6. Obstructive sleep apnea, on CPAP. 7. History of DVT, status post IVC filter, IVC filter removed in 2018. 8. Monoclonal gammopathy. 9. History of bladder cancer, resected, followed by Dr. Ward. PAST SURGICAL HISTORY: Stents in 2007, 2018; TIPS in 2018; polypectomy in 2018 ; permanent pacemaker; cholecystectomy; appendectomy. HOME MEDICATIONS: 1. Aspirin 81 mg p.o. daily. 2. Epogen 3000 units twice weekly, last infusion on 01/24/19. 3. Ferrous sulfate 325 mg p.o. b.i.d. 4. Furosemide 40 mg p.o. daily. 5. Lactulose 30 mL p.o. t.i.d. 6. Magnesium oxide 400 mg p.o. daily. 7. Corgard 1 tab 20 mg p.o. daily. 8. Pantoprazole 40 mg p.o. b.i.d. 9. Rifaximin 550 mg p.o. daily. 10. Rosuvastatin 40 mg p.o. daily. 11. Spironolactone 40 mg p.o. daily. 12. Tamsulosin 0.4 mg p.o. at bedtime. DRUG ALLERGIES: ADHESIVE TAPE, rash; HORSE/EQUINE CONTAINING PRODUCTS, rash; LATEX, rash; MIDODRINE "could not tolerate." FAMILY HISTORY: Positive for bladder and intestinal cancer. Negative for heart disease, CVA, diabetes mellitus. SOCIAL HISTORY: The patient is a former smoker; he quit approximately 25 years ago. Prior to that, he smoked for approximately 30 years 3 to 4 packs per day. He is a social alcohol drinker and drinks less than 1 drink per week on average. 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 He works occasionally at his [employer]. He lives at home alone with his . In the event that he is unable to make his own medical decisions, he has appointed his , Aracelis Ashford, to be his surrogate decision maker. REVIEW OF SYSTEMS: A 10-point review of systems was performed and all the pertinent positives and negatives are in the HPI, all other systems are negative. PHYSICAL EXAMINATION GENERAL: Mr. Ashford is a well-developed, well-nourished, slightly overweight 79-year-old male who is lying on his left side in bed. He appears fatigued, but is cooperative and appropriate in his responses. He appears his stated age. He appears to be pale. VITAL SIGNS: Temperature 97.5 temporal, heart rate 55, respiratory rate 12, oxygen saturation 98% on room air, blood pressure 90/38. HEENT: PERRL. Extraocular movements intact. Nonicteric sclerae. Pale conjunctivae. Hearing grossly intact. Oral mucous membranes are moist. There are no lesions. NECK: Trachea midline. RESPIRATORY: Symmetrical chest expansion without use of accessory muscles. CARDIOVASCULAR: Regular rate and rhythm with S1, S2 present without murmurs, rubs, clicks, or gallops. ABDOMEN: Protuberant, but soft. Mild tenderness to palpation throughout. Liver is palpable. There is no fluid wave. RECTAL: Exam performed with and co-worker, Sonali Hu, in the room. Sphincter tone intact. No ronald blood noted on examination. MUSCULOSKELETAL: Full range of motion without pain or deformities. EXTREMITIES: Skin is warm and smooth bilaterally without clubbing or cyanosis. There is bilateral lower extremity edema, 1+, pitting. NEURO: The patient is awake. He is alert and oriented x3. Cranial nerves are grossly intact and he moves all of his extremities with motor strength that is equal in upper and lower extremities bilaterally. DIAGNOSTIC STUDIES/LAB DATA: Chest x-ray, 01/25/19, impression: No active cardiopulmonary disease. EKG: Rate 52, no ST elevation or depression, ventricular paced rhythm. WBC 2.1, RBC 2.02, HGB 6.8, HCT 20, MCV 99, MCH 33, RDW 17, platelet count 133. D- dimer greater than 1050. BUN 37, creatinine 2.56. ASSESSMENT AND PLAN: Mr. Ashford is a 79-year-old male with a past medical history of cryptogenic liver cirrhosis, TIPS procedure, recurrent GI bleed, anemia who presents to the ER today with complaints of shortness of breath and was found to have a lower than baseline hemoglobin and hematocrit. He will be admitted to observation for: 1. Shortness of breath. The patient has had shortness of breath since awaking at 5 a.m. this morning. He continues to have shortness of breath, although he feels that this has improved with rest. He is being treated for chronic anemia with Epogen and ferrous sulfate 325 b.i.d. Last Epogen was last night at approximately 1930. Normal hemoglobin is 7.52 to 7.8 approximately. Current hemoglobin is 6.8. His shortness of breath could be attributed to this or is at least contributing. He will receive 2 units packed red blood cells. H and H will be ordered every 6 hours to determine need for further transfusions. Fecal occult blood has been ordered and sent. The patient has a history of GI bleed and there is a concern that he is having one currently. There may be need for surgery consult, pending results of fecal occult blood. Another possibility is a pulmonary embolism. The patient is noted to have an elevated D -dimer. Due to poor renal function V/Q scan has been ordered. 2. Coronary artery disease. Aspirin will be held. Continue rosuvastatin. 3. Chronic lower extremity edema. Continue furosemide. 4. Cryptogenic liver cirrhosis. Continue lactulose, rifaximin. 5. BPH. Continue tamsulosin. 6. Anemia. Continue oral iron supplementation. 7. Obstructive sleep apnea. The patient has CPAP machine. He will continue to use this while in the hospital. 8. Code status: Full code. 9. DVT prophylaxis: According to the DVT risk assessment, the patient scores 5 and is placed at highest risk. He will not be prescribed chemoprophylaxis due to anemia and possible GI bleed. SCDs have been ordered. TIME SPENT: Approximately 60 minutes were spent on this admission, greater than half that time was spent with the patient and his obtaining history, performing physical, and reviewing the plan of care. The case has been reviewed with my attending, Dr. Edwards, who is in agreement with the plan of care. KATIE SMITH [id number]/[facility] #: [id number] GALO
[2019-01-25] MEDS: Pantoprazole TAB * 40 MG TAB PO SCH (20:55)
[2019-01-25] MEDS: Ferrous Sulfate TAB* 325 MG PO SCH (20:55)
[2019-01-25] MEDS: Tamsulosin CAP* 0.4 MG PO SCH (20:55)
[2019-01-25] MEDS: RiFAXimin* 550 MG TAB PO SCH (20:55)
[2019-01-25 23:25] LABS: Hematocrit 24 % (42-52); Hemoglobin 8.1 g/dL (14.0-18.0)
[2019-01-26 06:01] LABS: Hematocrit 24 % (42-52); Hemoglobin 8.4 g/dL (14.0-18.0)
[2019-01-26] MEDS: Pantoprazole TAB * 40 MG TAB PO SCH ×2 (07:44→20:41)
[2019-01-26] MEDS: Ferrous Sulfate TAB* 325 MG PO SCH ×2 (07:44→20:41)
[2019-01-26] MEDS: Atorvastatin* 80 MG TAB PO SCH (07:44)
[2019-01-26] MEDS: RiFAXimin* 550 MG TAB PO SCH ×2 (07:44→20:45)
[2019-01-26] MEDS: Magnesium Oxide TAB* 400 MG PO SCH (07:44)
[2019-01-26] MEDS ORDERED: Furosemide TAB* 40 MG PO SCH (09:00)
[2019-01-26] MEDS ORDERED: Spironolactone TAB* 25 MG PO SCH ×2 (09:00→12:00)
[2019-01-26] MEDS: Nadolol TAB* 40 MG PO SCH ×2 (09:24→11:22)
[2019-01-26 11:23] LABS: Hematocrit 23 % (42-52); Hemoglobin 8.1 g/dL (14.0-18.0)
[2019-01-26] MEDS: Furosemide TAB* 40 MG PO SCH (12:15)
--- NOTE | 2019-01-26 13:33 | PN ---
Subjective Date of Service: 01/26/19 Interval History: Reports sob.BP low this am and bp meds were held.Reports feeling tired. Objective Active Medications: Aspirin (Aspirin Ec Tab*) 81 mg PO DAILY [facility] Atorvastatin Calcium (Lipitor*) 80 mg PO DAILY [facility] Last Admin: 01/26/19 07:44 Dose: 80 mg Ferrous Sulfate (Ferrous Sulfate Tab*) 325 mg PO BID [facility] Last Admin: 01/26/19 07:44 Dose: 325 mg Furosemide (Lasix Tab*) 40 mg PO DAILY [facility] Last Admin: 01/26/19 12:15 Dose: 40 mg Lactulose (Lactulose*) 30 ml PO TID [facility] Last Admin: 01/26/19 07:44 Dose: 30 ml Magnesium Oxide (Magox 400 Tab*) 400 mg PO DAILY [facility] Last Admin: 01/26/19 07:44 Dose: 400 mg Nadolol (Corgard Tab*) 20 mg PO DAILY [facility] Last Admin: 01/26/19 11:22 Dose: 20 mg Pantoprazole Sodium (Protonix Tab*) 40 mg PO BID [facility] Last Admin: 01/26/19 07:44 Dose: 40 mg Rifaximin (Xifaxan*) 550 mg PO BID [facility] Last Admin: 01/26/19 07:44 Dose: 550 mg Spironolactone (Aldactone Tab*) 50 mg PO BEDTIME [facility] Tamsulosin HCl (Flomax Cap*) 0.4 mg PO BEDTIME [facility] Last Admin: 01/25/19 20:55 Dose: 0.4 mg Vital Signs - 8 hr 01/26/19 01/26/19 01/26/19 07:00 07:20 11:00 Temperature 97.8 F 98.0 F Pulse Rate 50 56 Respiratory 18 24 18 Rate Blood Pressure 96/44 84/31 (mmHg) O2 Sat by Pulse 99 97 Oximetry Oxygen Devices in Use Now: None Eyes: No Scleral Icterus Ears/Nose/Mouth/Throat: NL Teeth, Lips, Gums Neck: NL Appearance and Movements; NL JVP Respiratory: Symmetrical Chest Expansion and Respiratory Effort Cardiovascular: NL Sounds; No Murmurs; No JVD Abdominal: NL Sounds; No Tenderness; No Distention, - - moderate ascites Extremities: No Edema Neurological: Alert and Oriented x 3 Result Diagrams: 01/26/19 11:09 01/25/19 10:50 Microbiology and Other Data: Microbiology 01/25/19 13:46 Stool Occult Blood (SUJEY) - Final Stool Assess/Plan/Problems-Billing Assessment: - Patient Problems (1) Anemia Current Visit: Yes Status: Acute Code(s): D64.9 - ANEMIA, UNSPECIFIED SNOMED Code(s): 899806600 Comment: Pancytopenia D/w Heme/Onc Pt follows with dr reese as outpatient. Recently started Epogen Receives Iron infusion as outpatient and on po iron s/p 2 units PRBC yesterday with improvement Had bone marrow biopsy in 2017 Will wait for outpatient review of heme/onc records and recs will recheck iron panel,also will check b12,parvovirus poss smoldering myeloma/ monoclonal gammopathy continue epogen (2) Cryptogenic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 liver Current Visit: Yes Status: Acute Code(s): K74.69 - OTHER CIRRHOSIS OF LIVER SNOMED Code(s): 29860579 Comment: had had extensive w/u in the past per d/w pt follows with dr syed fobt neg this time in hospital s/p TIPS has had liver biopsies in past CATALINO neg in past but in 2017 has fam h/o lupus Will recheck CATALINO panel, Anti smooth muscle ab,anca,anti mitochondrial ab to eval for autoimmune hepatitis (3) Acute kidney injury superimposed on CKD Current Visit: Yes Status: Acute Code(s): N17.9 - ACUTE KIDNEY FAILURE, UNSPECIFIED; N18.9 - CHRONIC KIDNEY DISEASE, UNSPECIFIED SNOMED Code(s): 05704599 Comment: Baseline ckd3 some worsening in settinf of anemia and likely prerenal azotemia will follow renal fx (4) CAD (coronary artery disease) Current Visit: Yes Status: Acute Code(s): I25.10 - ATHSCL HEART DISEASE OF [place] CORONARY ARTERY W/O ANG PCTRS SNOMED Code(s): 05254567 Comment: will restart aspirin did not tolerate plavix brylinta in past with bleeding and has been on aspirin as fobt currently neg and drug eluting stents within 1 year per d/w pt, will restart aspirin and follow closely (5) Dyspnea Current Visit: Yes Status: Acute Code(s): R06.00 - DYSPNEA, UNSPECIFIED SNOMED Code(s): 998865344 Comment: will restart spironolactone and lasix and eval dyspnea in setting of anemia
[2019-01-26 14:19] LABS: Ferritin 94.5 ng/mL (24-336)
[2019-01-26] MEDS: Aspirin EC TAB* 81 MG TAB.EC PO SCH (15:04)
[2019-01-26] MEDS: Spironolactone TAB* 25 MG PO SCH (20:42)
[2019-01-26] MEDS: Tamsulosin CAP* 0.4 MG PO SCH (20:42)
[2019-01-26 21:36] LABS: Urine Appearance Cloudy; Urine Bacteria Absent (Absent); Urine Bilirubin Negative (Negative); Urine Blood 1+ (Negative); Urine Color Yellow; Urine Glucose Negative (Negative); Urine Ketones Negative (Negative); Urine Nitrite Negative (Negative); Urine Protein Negative (Negative); Urine Red Blood Cell 1+(3-5/hpf) (Absent); Urine Specific Gravity 1.009 (1.010-1.030); Urine Urobilinogen Negative (Negative); Urine White Blood Cell 3+(>20/hpf) (Absent)
[2019-01-27 06:35] LABS: ABS Eosinophils 0.1 10^3/ul (0-0.6); ABS Lymphocytes 0.8 10^3/ul (1.0-4.8); ABS Monocytes 0.3 10^3/ul (0-0.8); ABS Neutrophils 1.1 10^3/ul (1.5-7.7); Eosinophil % 5.4 %; Hematocrit 25 % (42-52); Hemoglobin 8.6 g/dL (14.0-18.0); Lymphocyte % 35.5 %; Mean Corpuscular HGB Conc 34 g/dL (31-36); Mean Corpuscular Hemoglobin 33 pg (27-31); Mean Corpuscular Volume 96 fL (80-94); Nucleated Red Blood Cells % 0.1; Platelet Count 131 10^3/uL (150-450); Red Cell Distribution Width 19 % (10-15); White Blood Count 2.3 10^3/uL (3.5-10.8)
[2019-01-27 07:11] LABS: BUN/Creatinine Ratio 14.6 (8-20); Calcium 7.5 mg/dL (8.6-10.3); EGFR African American 32.1 (>60); EGFR Non-African American 26.5 (>60); Potassium 4.5 mmol/L (3.5-5.0)
[2019-01-27] MEDS: Aspirin EC TAB* 81 MG TAB.EC PO SCH (07:42)
[2019-01-27] MEDS: Furosemide TAB* 40 MG PO SCH (07:42)
[2019-01-27] MEDS: Ferrous Sulfate TAB* 325 MG PO SCH ×2 (07:42→20:32)
[2019-01-27] MEDS: Atorvastatin* 80 MG TAB PO SCH (07:42)
[2019-01-27] MEDS: Pantoprazole TAB * 40 MG TAB PO SCH ×2 (07:43→20:32)
[2019-01-27] MEDS: Magnesium Oxide TAB* 400 MG PO SCH (07:43)
[2019-01-27] MEDS: Nadolol TAB* 40 MG PO SCH (07:43)
[2019-01-27] MEDS: RiFAXimin* 550 MG TAB PO SCH ×2 (07:43→20:31)
[2019-01-27] MEDS ORDERED: EPOETIN ALFA-EPBX * 3,000 UNIT/ML VIAL SUBCUT ONE (09:03)
[2019-01-27] MEDS ORDERED: cefTRIAXone(*) 1 GM in NS 0.9% 50 ML* 50 ML IVPB SCH (13:00)
--- NOTE | 2019-01-27 13:32 | PN ---
Subjective Date of Service: 01/27/19 Interval History: Reports feeling better.sob improved Objective Active Medications: Aspirin (Aspirin Ec Tab*) 81 mg PO DAILY [facility] Last Admin: 01/27/19 07:42 Dose: 81 mg Atorvastatin Calcium (Lipitor*) 80 mg PO DAILY [facility] Last Admin: 01/27/19 07:42 Dose: 80 mg Ferrous Sulfate (Ferrous Sulfate Tab*) 325 mg PO BID [facility] Last Admin: 01/27/19 07:42 Dose: 325 mg Furosemide (Lasix Tab*) 40 mg PO DAILY [facility] Last Admin: 01/27/19 07:42 Dose: 40 mg Ceftriaxone Sodium 1 gm/ (Sodium Chloride) 50 mls @ 200 mls/hr IVPB Q24H [facility] Lactulose (Lactulose*) 30 ml PO TID [facility] Last Admin: 01/27/19 07:43 Dose: 30 ml Magnesium Oxide (Magox 400 Tab*) 400 mg PO DAILY [facility] Last Admin: 01/27/19 07:43 Dose: 400 mg Nadolol (Corgard Tab*) 20 mg PO DAILY [facility] Last Admin: 01/27/19 07:43 Dose: 20 mg Pantoprazole Sodium (Protonix Tab*) 40 mg PO BID [facility] Last Admin: 01/27/19 07:43 Dose: 40 mg Rifaximin (Xifaxan*) 550 mg PO BID [facility] Last Admin: 01/27/19 07:43 Dose: 550 mg Spironolactone (Aldactone Tab*) 50 mg PO BEDTIME [facility] Last Admin: 01/26/19 20:42 Dose: 50 mg Tamsulosin HCl (Flomax Cap*) 0.4 mg PO BEDTIME [facility] Last Admin: 01/26/19 20:42 Dose: 0.4 mg Vital Signs - 8 hr 01/27/19 01/27/19 07:00 07:24 Temperature 98.2 F Pulse Rate 50 Respiratory 18 18 Rate Blood Pressure 96/50 (mmHg) O2 Sat by Pulse 100 Oximetry Oxygen Devices in Use Now: None Eyes: No Scleral Icterus Neck: NL Appearance and Movements; NL JVP Respiratory: Symmetrical Chest Expansion and Respiratory Effort, Clear to Auscultation Cardiovascular: NL Sounds; No Murmurs; No JVD, RRR Abdominal: NL Sounds; No Tenderness; No Distention, - - moderate ascitis Extremities: - - 1+ Edema Neurological: Alert and Oriented x 3 Result Diagrams: 01/27/19 06:17 01/27/19 06:17 Microbiology and Other Data: Microbiology 01/25/19 13:46 Stool Occult Blood (SUJEY) - Final Stool Assess/Plan/Problems-Billing Assessment: - Patient Problems (1) Anemia Current Visit: Yes Status: Acute Code(s): D64.9 - ANEMIA, UNSPECIFIED SNOMED Code(s): 366280341 Comment: Pancytopenia D/w Heme/Onc Pt follows with dr reese as outpatient. Recently started Epogen Receives Iron infusion as outpatient and on po iron s/p 2 units PRBC with improvement Had bone marrow biopsy in 2017 Will wait for outpatient review of heme/onc records and recs will recheck iron panel,also will check b12,parvovirus poss smoldering myeloma/ monoclonal gammopathy continue epogen pt reports feeling properly day after epo.getting it today and will evaluate Discussed Pos FOBT and ?need for EGD and further evaluation with Dr Taryn Harmon licensed nuclear control room operator today for GI. He is Dr Syed's patient as an outpatient and has had extensive evaluation.She will review records and has had multiple scopes and GI will get back on if the patient needs inpatient or outpatient evaluation.Will follow h/h (2) Cryptogenic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 liver Current Visit: Yes Status: Acute Code(s): K74.69 - OTHER CIRRHOSIS OF LIVER SNOMED Code(s): 10964105 Comment: had had extensive w/u in the past per d/w pt follows with dr syed fobt neg first and second positive s/p TIPS has had liver biopsies in past CATALINO neg in past but in 2017 has fam h/o lupus Will recheck CATALINO panel, Anti smooth muscle ab,anca,anti mitochondrial ab to eval for autoimmune hepatitis ( pending) (3) Acute kidney injury superimposed on CKD Current Visit: Yes Status: Acute Code(s): N17.9 - ACUTE KIDNEY FAILURE, UNSPECIFIED; N18.9 - CHRONIC KIDNEY DISEASE, UNSPECIFIED SNOMED Code(s): 78747603 Comment: Baseline ckd3 some worsening in settinf of anemia and likely prerenal azotemia improving will follow renal fx follows with dr heath as an outpt (4) CAD (coronary artery disease) Current Visit: Yes Status: Acute Code(s): I25.10 - ATHSCL HEART DISEASE OF [place] CORONARY ARTERY W/O ANG PCTRS SNOMED Code(s): 95670953 Comment: will restart aspirin did not tolerate plavix brylinta in past with bleeding and has been on aspirin drug eluting stents within 1 year per d/w pt, will restart aspirin and follow closely per d/w GI has had extensive discussion about this with cardiology in the past will follow h/h closely..currently improved (5) Dyspnea Current Visit: Yes Status: Acute Code(s): R06.00 - DYSPNEA, UNSPECIFIED SNOMED Code(s): 878113430 Comment: will restart spironolactone and lasix and eval dyspnea in setting of anemia d dimer elevated.v/q low prob for pe
[2019-01-27] MEDS: Spironolactone TAB* 25 MG PO SCH (20:32)
[2019-01-27] MEDS: Tamsulosin CAP* 0.4 MG PO SCH (20:32)
[2019-01-28 07:44] VITALS: BP 87/38
[2019-01-28] MEDS: Magnesium Oxide TAB* 400 MG PO SCH (08:52)
[2019-01-28] MEDS: Nadolol TAB* 40 MG PO SCH (08:52)
[2019-01-28] MEDS: Furosemide TAB* 40 MG PO SCH (08:52)
[2019-01-28] MEDS: Atorvastatin* 80 MG TAB PO SCH (08:52)
[2019-01-28] MEDS: Aspirin EC TAB* 81 MG TAB.EC PO SCH (08:53)
[2019-01-28] MEDS: Ferrous Sulfate TAB* 325 MG PO SCH (08:53)
[2019-01-28] MEDS: RiFAXimin* 550 MG TAB PO SCH (08:53)
[2019-01-28] MEDS: Pantoprazole TAB * 40 MG TAB PO SCH (08:53)
[2019-01-28 10:17] LABS: ABS Eosinophils 0.1 10^3/ul (0-0.6); ABS Lymphocytes 0.6 10^3/ul (1.0-4.8); ABS Monocytes 0.2 10^3/ul (0-0.8); ABS Neutrophils 1.4 10^3/ul (1.5-7.7); Hematocrit 24 % (42-52); Hemoglobin 7.9 g/dL (14.0-18.0); Lymphocyte % 24.9 %; Mean Corpuscular HGB Conc 34 g/dL (31-36); Mean Corpuscular Hemoglobin 33 pg (27-31); Mean Corpuscular Volume 96 fL (80-94); Nucleated Red Blood Cells % 0.2; Platelet Count 134 10^3/uL (150-450); Red Blood Count 2.44 10^6 /uL (4.18-5.48); Red Cell Distribution Width 19 % (10-15); White Blood Count 2.3 10^3/uL (3.5-10.8)
[2019-01-28 10:40] LABS: BUN/Creatinine Ratio 13.8 (8-20); Calcium 7.8 mg/dL (8.6-10.3); EGFR African American 30.9 (>60); EGFR Non-African American 25.5 (>60)
[2019-01-28 16:07] LABS: Hematocrit for Retic CNT 23 % (42-52); Immature Retic Fraction 0.44; RBC Retic Count 2.41 10^6/uL (4.18-5.48)
--- NOTE | 2019-01-29 20:00 | DS ---
CC: Dr. Johnston; Dr. Guillen; Dr. Ruiz; Dr. Ward; Dr. Siu * DISCHARGE SUMMARY: DATE OF ADMISSION: 01/25/19 DATE OF DISCHARGE: 01/28/19 PRIMARY CARE PROVIDER: Dr. Johnston. ONCOLOGIST: Dr. Guillen. POWER MACHINE OPERATOR: Dr. Ruiz. MUSHROOM SPAWN MAKER: Dr. Ward. CONSULTING GI DOCTOR: Dr. Siu. DISCHARGE DIAGNOSES: 1. Dyspnea, likely secondary to symptomatic anemia. 2. 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 SECONDARY DIAGNOSES: 1. Cryptogenic liver cirrhosis. 2. Status post TIPS in 2018. 3. Coronary artery disease, status post stent in 2007 and 2017. 4. Recurrent gastrointestinal bleed. 5. Status post polyp removal in 2018. 6. Multifactorial anemia. 7. Chronic kidney disease, stage 3 to 4. 8. Obstructive sleep apnea, on CPAP. 9. History of deep venous thrombosis, status post IVC filter that was removed in 2018. 10. Monoclonal gammopathy. 11. History of bladder cancer. MEDICATION LIST: Unchanged from admission: 1. Aspirin 81 mg p.o. daily. 2. Epogen 3000 units subcutaneous twice a week. 3. Ferrous sulfate 325 mg p.o. b.i.d. 4. Furosemide 40 mg p.o. daily. 5. Lactulose 30 mL p.o. t.i.d. 6. Magnesium oxide 400 mg p.o. daily. 7. Nadolol 20 mg p.o. daily. 8. Pantoprazole 40 mg p.o. b.i.d. 9. Rifaximin 550 mg p.o. b.i.d. 10. Rosuvastatin 40 mg p.o. daily. 11. Spironolactone 50 mg p.o. daily. 12. Tamsulosin 0.4 mg p.o. at bedtime. HOSPITAL COURSE: Mr. Ashford is a 79-year-old male with a complex past medical history as stated above, who presented to the emergency room with complaints of shortness of breath that had started on the day of admission. The patient states that he woke up, removed his CPAP and he began to experience shortness of breath right away. He states that this typically occurs when his hemoglobin is less than 7. He came to the emergency room for further evaluation. In the emergency room , he was found to have a hemoglobin of 6.8 and he was admitted for further evaluation and management. He received 2 PRBC transfusions total. The case was discussed in consultation with GI (Dr. Siu) and she did not feel that he needed any emergent procedure done. He has known portal hypertensive gastropathy, so he will have chronically positive stool occult blood and her recommendation would be for him to follow up with Dr. Ruiz as an outpatient. Regarding his anemia, the patient follows as an outpatient with Dr. Guillen. He was recently started on Epogen and has been iron repleted with iron infusion and p.o. iron. I did discuss the case with Dr. Guillen, who feels that he may have another cause for his anemia such as smoldering myeloma/monoclonal gammopathy as he is iron replete now, getting Epogen and his anemia persists even though he still has a positive occult blood. His recommendation was for the patient to be discharged today and to keep up his appointment with him today at 2 p.m., so he can discuss further where to go from here. The patient states that after the blood transfusion he had improvement of his shortness of breath and he was feeling back at his baseline. The patient's last CBC prior to discharge shows leukopenia with a WBC of 2.3, a hemoglobin of 7.9, and platelets of 134 and as stated above, the patient will go from here straight to his appointment with Dr. Guillen to decide how to proceed. His anemia workup includes an iron level of 187, TIBC of 185, transferrin 139, ferritin 94 , vitamin B12 662. ANCA was negative and please note that CATALINO, mitochondrial and anti-smooth muscle antibodies are pending and need to be followed as an outpatient as well as Parvovirus B19 serology. The patient is medically stable for discharge today to follow up as an outpatient. PHYSICAL EXAMINATION: Vital Signs: Temperature 96.5, heart rate is 65, respiratory rate is 20, oxygen saturation 99% on room air, blood pressure is 90/ 45 (please note that this blood pressure is not unusual for him). CVS: Normal S1, S2. Regular rate and rhythm. Chest: Breath sounds present bilaterally, diminished in bases, but no added sounds. Abdomen is soft. Bowel sounds are present. Neuro: He is alert and oriented x3. Able to move all 4 extremities. DIET: Heart-healthy diet. ACTIVITIES: As tolerated. DISPOSITION: To home. STATUS WHILE IN THE HOSPITAL: Inpatient. Please keep in mind that this is a summarized version of this patient's hospital stay. If you need more information, please feel free to call me at or please obtain full medical records. TIME SPENT: Approximately 45 minutes was spent to complete this discharge. [id number]/[facility] #: [id number] GALO
[2019-01-30 16:11] LABS: Smooth Muscle Antibody Negative (Negative)
[2019-01-30 17:30] LABS: Mitochondria M2 Antibody <0.1 U
== END 2019-01-28 13:30 | disposition home or self-care (01) | DRG 812 ==
LOC: ED 10:11 → MED 13:48 → OBSVTOIN 01-26 09:44
PROVIDERS: ADMIT Internal Medicine; ATTEND Internal Medicine
PROC: 30233N1 Transfusion of Nonautologous Red Blood Cells into Peripheral Vein, Percutaneous Approach (ICD-10-PCS; principal; 2019-01-25)
DX: D50.0 Iron deficiency anemia secondary to blood loss (chronic) (principal); N17.9 Acute kidney failure, unspecified; D61.818 Other pancytopenia; N18.4 Chronic kidney disease, stage 4 (severe); K76.6 Portal hypertension; D47.2 Monoclonal gammopathy; K74.69 Other cirrhosis of liver; I25.10 Atherosclerotic heart disease of native coronary artery without angina pectoris; G47.33 Obstructive sleep apnea (adult) (pediatric); K31.89 Other diseases of stomach and duodenum; R60.0 Localized edema; N40.0 Benign prostatic hyperplasia without lower urinary tract symptoms; Z95.5 Presence of coronary angioplasty implant and graft; Z86.718 Personal history of other venous thrombosis and embolism; Z85.51 Personal history of malignant neoplasm of bladder; Z95.0 Presence of cardiac pacemaker; Z79.82 Long term (current) use of aspirin; Z79.899 Other long term (current) drug therapy; Z91.040 Latex allergy status; Z88.8 Allergy status to other drugs, medicaments and biological substances; Z91.048 Other nonmedicinal substance allergy status; Z80.52 Family history of malignant neoplasm of bladder; Z80.0 Family history of malignant neoplasm of digestive organs; Z87.891 Personal history of nicotine dependence; Z99.89 Dependence on other enabling machines and devices
CPT/HCPCS: 36415; 71045; 78582; 80048; 80053; 81003; 81015; 82270; 82272; 82607; 82728; 83516; 83540; 83550; 83605; 83880; 84484; 85014; 85018; 85025; 85045; 85379; 85610; 85730; 86038; 86255; 86747; 86850; 86900; 86901; 86922; 87040; 87086; 93005; 99285; A9270-GY; A9540; A9558; G0378; G8978-GP-CI; G8979-GP-CI; J0696; P9040; Q5106

== ENCOUNTER 2019-03-05 07:04 | Inpatient (IN) | payer MEDICARE ==
[2019-03-05] MEDS ORDERED: NS 0.9% 1000 ML** 1,000 ML IV ONE (07:20)
--- NOTE | 2019-03-05 07:30 | ED ---
Altered Mental Status - HPI Summary HPI Summary: Pt is a 79 Y/O M w hx hepatic encephelopathy, cirrhosis, GI bleeding who is brought in by EMS to [facility] for AMS per this morning BOTTLE SELECTOR. This pt is a level 5 caveat due to him being unresponsive upon arrival. states that his normal ammonia level has been high. Pt was not confused yesterday but his stated that he had decreased appetite and fluid ingestion. He woke up last night when his adjusted his CPAP level but did not do much else. stated that the pt had not been taking his medications. Family states that he has been having a productive cough. Pt had a transfusion due to chronic GI bleeding two weeks prior to his ED visit. Pt had similar symptoms on 07/03/18 and was diagnosed with a Dx of Hepatic encephalopathy. Takes lactulose at home but has missed a few doses. - History Of Current Complaint Chief Complaint: EDAltMentalStatus Stated Complaint: UNRESPONSIVE PER Hx Obtained From: Family/[employer] Professional - Family Hx From Patient Unobtainable Due To: Altered Mental Status - level 5 caveat Onset/Duration: Unknown, Still Present Timing: Constant - BOTTLE SELECTOR Severity Initially: Severe Severity Currently: Severe Character: Responsiveness - Pt is currently unresponsive to pain Aggravating Factor(s): Unknown Alleviating Factor(s): Unknown Related History: Similar Episode/Diagnosed As: - Pt was seen on 07/03/18 with a similar set of symptoms and was diagnosed with Hepatic encephalopathy. - Allergies/Home Medications Allergies/Adverse Reactions: Allergies Allergy/AdvReac Type Severity Reaction Status Date / Time Adhesive Tape Allergy Rash Verified 11/15/18 12:18 Horse/Equine Containing Allergy Rash Verified 11/15/18 12:18 Products latex Allergy Rash Verified 11/15/18 12:18 midodrine Allergy "Could not Verified 11/15/18 12:18 tolerate" PMH/Surg Hx/FS Hx/Imm Hx Previously Healthy: No Endocrine/Hematology History: Reports: Hx Anemia, Hx Unexplained Bleeding, Other Endocrine/Hematological Disorders - hx neutropenia Denies: Hx Anticoagulant Therapy - failed d/t bleeding - only takes ASA daily , Hx Diabetes Cardiovascular History: Reports: Hx Angina, Hx Coronary Artery Disease, Hx Deep Vein Thrombosis - with filter in place , Hx Hypercholesterolemia, Hx Hypertension, Hx Myocardial Infarction, Hx Pacemaker/ICD - pacemaker Denies: Hx Cardiac Arrest, Hx Cardiomegaly, Hx Congenital Heart Disease, Hx Congestive Heart Failure, Hx Embolism, Hx Hypotension, Hx Rheumatic Fever, Hx Syncope, Hx Valvular Heart Disease Respiratory History: Reports: Hx Pleural Effusion, Hx Sleep Apnea - current CPAP user Denies: Hx Asthma, Hx Chronic Obstructive Pulmonary Disease (COPD) GI History: Reports: Hx Cirrhosis - s/p TIPS, Hx Gall Bladder Disease, Hx Gastroesophageal Reflux Disease, Hx Gastrointestinal Bleed, Hx Irritable Bowel, Other GI Disorders - brijesh, jessika'y, S/P TIPS at [facility] Denies: Hx Crohn's Disease, Hx Diverticulosis, Hx Hiatal Hernia History: Reports: Hx Chronic Renal Failure, Other Problems/Disorders - weak bladder s/p bladder cancer, colon polyps Denies: Hx Renal Disease Musculoskeletal History: Reports: Other Musculoskeletal History - hammer toes, both feet, had sx. Denies: Hx Rheumatoid Arthritis Sensory History: Reports: Hx Contacts or Glasses Denies: Hx Deafness, Hx Hearing Aid, Hx Hearing Problem, Other Sensory Impairments Opthamlomology History: Reports: Hx Contacts or Glasses Denies: Other Sensory Impairments Neurological History: Denies: Hx Dementia, Hx Developmental Delay, Hx Headaches, Hx Migraine, Hx Nerve Disease, Hx Seizures, Hx Spinal Cord Injury, Hx Transient Ischemic Attacks (TIA), Other Neuro Impairments/Disorders Psychiatric History: Denies: Hx Autism, Hx Schizophrenia - Cancer History Cancer Type, Location and Year: bladder cancer Hx Chemotherapy: No - Surgical History Surgery Procedure, Year, and Place: cataract surgery with lens implants bilat eyes. hammer toe repair bilat feet. appendectomy. cholecystectomy. cardiac stents 2018. TIPS. surg for colonic polyps. colonoscopy with polyp removal 2018 Hx Anesthesia Reactions: No - Immunization History Date of Tetanus Vaccine: unk Date of Influenza Vaccine: fall 2017 Infectious Disease History: No Infectious Disease History: Denies: Hx Clostridium Difficile, Hx Hepatitis, Hx Human Immunodeficiency Virus (HIV), Hx of Known/Suspected MRSA, Hx Shingles, Hx Tuberculosis, Traveled Outside the [place] in Last 30 Days - Family History Known Family History: Positive: Cardiac Disease Negative: Hypertension, Diabetes - Social History Occupation: Retired Lives: With Family Alcohol Use: None Alcohol Amount: none since August 2017 when issues started Hx Substance Use: No Substance Use Type: Reports: None Hx Tobacco Use: Yes - not currently Smoking Status (MU): Former Smoker Type: Cigarettes Have You Smoked in the Last Year: No Review of Systems - ROS Summary Review of Systems Summary: A full ROS is unavailable due to the pt being unresponsive and unable to answer any questions pertaining his current condition. Positive: Cough - productive: per family Neurological: Other - AMS, pt is unresponsive All Other Systems Reviewed And Are Negative: No Physical Exam - Summary Physical Exam Summary: A full PE is unobtainable due to the pt being unresponsive and thus unable to provide any adequate responses. Constitutional: minimaly responsive Skin: Warm, Dry HENT: Normocephalic; Atraumatic Eyes: Conjunctiva normal Neck: Musculoskeletal ROM normal neck. (-) JVD, (-) Stridor, (-) Nuchal rigidity Cardio: bradycardia, Heart sounds normal; Intact distal pulses; Radial pulses are 2+ and symmetric. (-) Murmur Pulmonary/Chest wall: Effort normal. sonorous respirations, (-) Respiratory distress, (-) Wheezes, (-) Rales Abd: Soft, (-) tenderness, (-) Distension, (-) Guarding, (-) Rebound Musculoskeletal: (-) Edema Lymph: (-) Cervical adenopathy Neuro: responsive to painful stimuli. Does not follow commands. Will regard family occasionally. Psych: deferred Triage Information Reviewed: Yes Vital Signs On Initial Exam: Initial Vitals Temp Pulse Resp BP Pulse Ox 98.1 F 51 18 132/52 99 03/05/19 07:06 03/05/19 07:06 03/05/19 07:06 03/05/19 07:06 03/05/19 07:06 Vital Signs Reviewed: Yes Completion Of Physical Exam Limited Due To: Altered Mental Status, Level 5 Diagnostics - Vital Signs Vital Signs Temp Pulse Resp BP Pulse Ox 03/05/19 07:06 98.1 F 51 18 132/52 99 - Laboratory Result Diagrams: 03/05/19 07:20 03/05/19 07:20 Lab Statement: Any lab studies that have been ordered have been reviewed, and results considered in the medical decision making process. - CT No standard instances CT Interpretation Completed By: Radiologist - CT brain - no acute intracranial pathology CXR - pulmonary edema pattern - EKG 0712 Cardiac Rate: Bradycardia - 53 BPM EKG Rhythm: Sinus Rhythm ST Segment: Normal EKG Comparison: No Significant Change - from 01/26/19 Summary of EKG Findings: Pt has Sinus bradycardia at a rate of 53 BPM and has Atrial-sensed and venticular-paced complexes. He has no significant changes from 01/26/19. Interpreted by dr. Metz at 0720 03/05/19. Altered Mental Statu Course/Dx - Course Course Of Treatment: 79-year-old male the history of hepatic encephalopathy, cryptogenic cirrhosis status post TIPS who presents altered mental status. Most likely hepatic encephalopathy. Given that this patient has normal O2, BG, hypoxia and hypoglycemia/DKA less likely. DDx still includes: alcohol, electrolyte abnl, thyroid issues, infection/sepsis, drug overdose, hypothermia, trauma, encephalopathy/encephalitis, psych, stroke, SAH, postictal from seizure. Will check labs, head ct, urine, ekg, cxr. Reassess. No e/o infectious process at this time. will give rectal lactulose, hold on intubation as patient is currently maintaining airway however low threshold for intubation given altered mental status. D/w family and they would like intubation if necessary. - Diagnoses Differential Diagnosis/HQI/PQRI: Hypothermia, Intoxication - alcohol, Overdose, Postictal State, Sepsis, Seizure, Other - alcohol, electrolyte abnl, thyroid issues, infection/sepsis, drug overdose, hypothermia, trauma, encephalopathy/ encephalitis, psych, stroke, SAH, postictal from seizure Provider Diagnoses: Hepatic encephalopathy, Altered mental status - Provider Notifications Discussed Care Of Patient With: Bernardo Schultz Time Discussed With Above Provider: 08:40 Instructed by Provider To: Admit As Inpatient - Pt admitted to the ICU - Critical Care Time Critical Care Time: 30-74 min - 30 minutes Discharge - Sign-Out/Discharge Documenting (check all that apply): Patient Departure - admitted to ICU Patient Received Moderate/Deep Sedation with Procedure: No - Discharge Plan Condition: Stable Disposition: ADMITTED TO [facility] - Billing Disposition and Condition Condition: STABLE Disposition: Admitted to [facility] - Attestation Statements Document Initiated by Marianoibe: Yes Documenting Scribe: Jack Pierre Provider For Whom Shakeel is Documenting (Include Credential): Maynor Metz MD Scribe Attestation: Jack Lal, scribed for Maynor Metz MD on 03/05/19 at 1315. Scribe Documentation Reviewed: Yes Provider Attestation: The documentation as recorded by the scribe, Jack Pierre accurately reflects the service I personally performed and the decisions made by me, Maynor Metz MD Status of Scribe Document: Viewed Consult Consult: Dr. Schultz, ICU, was called at 0840 to discuss the plan of care of the pt. He stated that he will be admitting the pt to the ICU for further investigation and care.
[2019-03-05 07:38] LABS: ABS Eosinophils 0.1 10^3/ul (0-0.6); ABS Monocytes 0.3 10^3/ul (0-0.8); Eosinophil % 1.5 %; Hematocrit 25 % (42-52); Hemoglobin 8.9 g/dL (14.0-18.0); Lymphocyte % 28.6 %; Mean Corpuscular HGB Conc 36 g/dL (31-36); Mean Corpuscular Hemoglobin 33 pg (27-31); Mean Corpuscular Volume 93 fL (80-94); Mean Platelet Volume 7.5 fL (7.4-10.4); Nucleated Red Blood Cells % 0.1; Platelet Count 157 10^3/uL (150-450); Red Blood Count 2.68 10^6 /uL (4.18-5.48); Red Cell Distribution Width 17 % (10-15); White Blood Count 3.3 10^3/uL (3.5-10.8)
[2019-03-05 07:45] LABS: INR 1.06 (0.82-1.09)
[2019-03-05 07:50] LABS: ALT 35 U/L (7-52); AST 40 U/L (13-39); Albumin 2.3 g/dL (3.2-5.2); Albumin/Globulin Ratio 0.5 (1-3); Alkaline Phosphatase 122 U/L (34-104); Anion Gap 7 mmol/L (2-11); BUN/Creatinine Ratio 15.9 (8-20); Blood Urea Nitrogen 41 mg/dL (6-24); CO2 Carbon Dioxide 18 mmol/L (22-32); Calcium 8.1 mg/dL (8.6-10.3); Chloride 108 mmol/L (101-111); EGFR African American 29.4 (>60); EGFR Non-African American 24.3 (>60); Globulin 4.3 g/dL (2-4); Glucose 153 mg/dL (70-100); Potassium 4.9 mmol/L (3.5-5.0); Sodium 133 mmol/L (135-145); Total Protein 6.6 g/dL (6.4-8.9)
[2019-03-05 08:05] LABS: Salicylate < 2.50 mg/dL (<30)
[2019-03-05 08:20] LABS: TSH (Thyroid Stimulating Horm) 0.62 mcIU/mL (0.34-5.60)
[2019-03-05] MEDS: Lactulose 300 ML for PR* 10 GM/15 ML BTL PR SCH ×2 (08:39→15:56)
[2019-03-05 11:12] LABS: Urine Appearance Clear; Urine Bilirubin Negative (Negative); Urine Blood Negative (Negative); Urine Color Yellow; Urine Glucose Negative (Negative); Urine Ketones Negative (Negative); Urine Nitrite Negative (Negative); Urine Protein Negative (Negative); Urine Specific Gravity 1.014 (1.010-1.030); Urine Urobilinogen Negative (Negative)
[2019-03-05] MEDS: NS 0.9% 1000 ML** 1,000 ML IV SCH (11:23)
[2019-03-05] MEDS: Heparin VIAL(*) 5000 UNITS/ML VIAL (FIVE THOUSAND) SUBCUT SCH ×2 (13:20→21:57)
--- NOTE | 2019-03-05 14:50 | HP ---
History of Present Illness - History of Present Illness Reason for Visit: Unresponsiveness History of Present Illness: 79 y/o male with PMH cryptogenic cirrhosis and severe baseline hyperammonemia ( asymptomatic at times into the 200s) who presents with hypoactive delirium. I was able to get him to open his eyes for me in the ED but not make eye contact. Found to have ammonia level of 285 ( was awake with that level yesterday). No evidence of active infection or clinical bleeding. Small lactate at 2.1. Was taking poor PO in recent days. History from family and the record. - Past Medical History Cardiac: CAD Pulmonary: Other - DVT with IVC filter, filter removed in 2018 Gastrointestinal: GI bleed Heme/Onc: Anemia NOS, Cancer - Bladder Hepatobiliary: Cirrhosis - TIPS February 2018, ascites better, ammonia up. 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 - Medications/Allergies Allergies/Adverse Reactions: Allergies Allergy/AdvReac Type Severity Reaction Status Date / Time Adhesive Tape Allergy Rash Verified 11/15/18 12:18 Horse/Equine Containing Allergy Rash Verified 11/15/18 12:18 Products latex Allergy Rash Verified 11/15/18 12:18 midodrine Allergy "Could not Verified 11/15/18 12:18 tolerate" Medications: Current Medications Aspirin (Aspirin Ec Tab*) 81 mg PO DAILY [facility] Atorvastatin Calcium (Lipitor*) 80 mg PO DAILY [facility] Ferrous Sulfate (Ferrous Sulfate Tab*) 325 mg PO BID [facility] Heparin Sodium (Porcine) (Heparin Vial(*)) 5,000 units SUBCUT Q8HR [facility] Last Admin: 03/05/19 13:20 Dose: 5,000 units Sodium Chloride (Ns 0.9% 1000 Ml) 1,000 mls @ 125 mls/hr IV PER RATE [facility] Last Admin: 03/05/19 11:23 Dose: 125 mls/hr Lactulose (Lactulose*) 30 ml PO TID [facility] Last Admin: 03/05/19 13:18 Dose: 30 ml Magnesium Oxide (Magox 400 Tab*) 400 mg PO DAILY [facility] Nadolol (Corgard Tab*) 20 mg PO DAILY [facility] Pantoprazole Sodium (Protonix Tab*) 40 mg PO BID [facility] Rifaximin (Xifaxan*) 550 mg PO BID [facility] Spironolactone (Aldactone Tab*) 50 mg PO DAILY [facility] Tamsulosin HCl (Flomax Cap*) 0.4 mg PO BEDTIME [facility] Exam - Exam Vital Signs: Vital Signs (72 hours) 03/05/19 03/05/19 03/05/19 07:06 07:09 07:10 Temperature 36.7 C Pulse Rate 51 50 58 Respiratory 18 Rate Blood Pressure 132/52 132/52 (mmHg) O2 Sat by Pulse 99 99 99 Oximetry 03/05/19 03/05/19 03/05/19 07:39 08:00 08:09 Temperature Pulse Rate 69 71 71 Respiratory 13 12 Rate Blood Pressure 140/71 134/77 (mmHg) O2 Sat by Pulse 97 97 98 Oximetry 03/05/19 03/05/19 03/05/19 08:55 09:00 09:25 Temperature Pulse Rate 67 66 65 Respiratory 11 11 11 Rate Blood Pressure 112/65 122/63 (mmHg) O2 Sat by Pulse 98 98 98 Oximetry 03/05/19 03/05/19 03/05/19 09:55 10:00 10:26 Temperature Pulse Rate 71 70 Respiratory 12 15 10 Rate Blood Pressure 131/63 130/68 (mmHg) O2 Sat by Pulse 99 100 Oximetry 03/05/19 03/05/19 03/05/19 10:52 10:56 11:00 Temperature 36.9 C Pulse Rate 71 71 72 Respiratory 11 10 9 Rate Blood Pressure 131/71 132/64 (mmHg) O2 Sat by Pulse 99 99 99 Oximetry 03/05/19 03/05/19 03/05/19 11:12 11:21 11:31 Temperature 36.2 C Pulse Rate 74 71 68 Respiratory 16 8 7 Rate Blood Pressure 142/54 142/54 107/45 (mmHg) O2 Sat by Pulse 100 99 99 Oximetry 03/05/19 03/05/19 03/05/19 11:45 11:47 11:53 Temperature 36.2 C Pulse Rate 66 65 Respiratory 13 10 Rate Blood Pressure 88/37 93/42 (mmHg) O2 Sat by Pulse 98 99 Oximetry 03/05/19 03/05/19 03/05/19 12:00 12:15 12:30 Temperature Pulse Rate 73 66 64 Respiratory 18 10 20 Rate Blood Pressure 119/55 109/49 84/46 (mmHg) O2 Sat by Pulse 99 99 98 Oximetry 03/05/19 03/05/19 03/05/19 12:45 13:00 13:15 Temperature Pulse Rate 61 62 65 Respiratory 19 19 21 Rate Blood Pressure 97/47 92/37 120/49 (mmHg) O2 Sat by Pulse 99 99 100 Oximetry 03/05/19 03/05/19 03/05/19 13:30 13:45 14:00 Temperature Pulse Rate 67 64 63 Respiratory 19 17 20 Rate Blood Pressure 110/52 101/42 106/43 (mmHg) O2 Sat by Pulse 100 100 99 Oximetry 03/05/19 03/05/19 03/05/19 14:15 14:30 14:31 Temperature Pulse Rate 60 67 64 Respiratory 20 16 13 Rate Blood Pressure 85/36 80/36 89/47 (mmHg) O2 Sat by Pulse 99 99 100 Oximetry General: Other - Opens eyes to loud voice, very lethargic HEENT: Atraumatic, PERRLA, EOMI Lungs: Clear to auscultation Cardiovascular: Regular rate, Normal S1, Normal S2 Abdomen: Normal bowel sounds, Soft, No tenderness Extremities: No clubbing, No cyanosis, No edema, No tenderness/swelling Skin: No rashes, No breakdown Neurological: Other - limited due to responsiveness Psych/Mental Status: Other - depressed mentation Assessment/Plan - Assessment/Plan Assessment: 79 y/o male [facility] cryptogenic cirrhosis presents with apparent hepatic encephalopathy and dehydration. No evidence for infectious precipitant, perhaps the dehydration has tipped him over. Plan: Hepatic encephalopathy - lactulose via NGT, PO when awake. Treat his dehydration. Dehydration - clinically dry with dry membranes and poor turgor. BP OK. Mild TELMA and mild lacate elevation. NS at 125cc/hr. CXR read as edema, I see atelectasis which is more consistent with his exam. TELMA - NS at 125cc/hr, family describes poor PO in recent days. Anemia - chronic, due for his EPO tomorrow. No clinical bleeding and he is curently on the higher end of his nl Hgb range according to . Deconditioning - family would like to pursue the possibility of rehab on DC if appropriate. Leukopenia - stable.
[2019-03-05] MEDS: Pantoprazole TAB * 40 MG TAB PO SCH (21:57)
[2019-03-05] MEDS: RiFAXimin* 550 MG TAB PO SCH (21:57)
[2019-03-05] MEDS: Tamsulosin CAP* 0.4 MG PO SCH (21:57)
[2019-03-05] MEDS: Ferrous Sulfate TAB* 325 MG PO SCH (21:57)
[2019-03-06] MEDS: NS 0.9% 1000 ML** 1,000 ML IV SCH (03:57)
[2019-03-06 05:50] LABS: ABS Eosinophils 0.1 10^3/ul (0-0.6); ABS Lymphocytes 0.7 10^3/ul (1.0-4.8); ABS Monocytes 0.2 10^3/ul (0-0.8); ABS Neutrophils 1.5 10^3/ul (1.5-7.7); Eosinophil % 3.7 %; Hematocrit 23 % (42-52); Hemoglobin 7.8 g/dL (14.0-18.0); Lymphocyte % 27.6 %; Mean Corpuscular HGB Conc 34 g/dL (31-36); Mean Corpuscular Hemoglobin 33 pg (27-31); Mean Corpuscular Volume 96 fL (80-94); Mean Platelet Volume 7.2 fL (7.4-10.4); Nucleated Red Blood Cells % 0.1; Platelet Count 121 10^3/uL (150-450); Red Blood Count 2.38 10^6 /uL (4.18-5.48); Red Cell Distribution Width 17 % (10-15); White Blood Count 2.6 10^3/uL (3.5-10.8)
[2019-03-06 06:02] LABS: Albumin 1.9 g/dL (3.2-5.2); Albumin/Globulin Ratio 0.5 (1-3); BUN/Creatinine Ratio 14.7 (8-20); Calcium 7.7 mg/dL (8.6-10.3); EGFR African American 33.4 (>60); EGFR Non-African American 27.6 (>60); Globulin 3.7 g/dL (2-4); Phosphorus 3.6 mg/dL (2.5-5.0); Potassium 4.2 mmol/L (3.5-5.0); Total Bilirubin 0.6 mg/dL (0.2-1.0); Total Protein 5.6 g/dL (6.4-8.9)
[2019-03-06] MEDS: Heparin VIAL(*) 5000 UNITS/ML VIAL (FIVE THOUSAND) SUBCUT SCH ×3 (06:26→22:42)
[2019-03-06] MEDS: Ferrous Sulfate TAB* 325 MG PO SCH ×2 (08:55→22:40)
[2019-03-06] MEDS: RiFAXimin* 550 MG TAB PO SCH ×2 (08:56→22:41)
[2019-03-06] MEDS: Atorvastatin* 80 MG TAB PO SCH (08:56)
[2019-03-06] MEDS: Magnesium Oxide TAB* 400 MG PO SCH (08:58)
[2019-03-06] MEDS: Pantoprazole TAB * 40 MG TAB PO SCH ×2 (08:58→22:40)
[2019-03-06] MEDS: Nadolol TAB* 40 MG PO SCH (08:58)
[2019-03-06] MEDS: Aspirin EC TAB* 81 MG TAB.EC PO SCH (08:59)
[2019-03-06] MEDS ORDERED: D5W 1000 ML BAG* 850 ML with Sodium Bicarbonate 8.4% IV* 150 MEQ IV SCH ×2 (09:00)
[2019-03-06] MEDS ORDERED: Spironolactone TAB* 25 MG PO SCH (09:00)
--- NOTE | 2019-03-06 09:12 | PN ---
Date of Service: 03/06/19 Critical Care Services: Awake and alert. No complaints. Vital Signs: Temp Pulse Resp BP SpO2 FiO2 36.9 C 68 18 108/45 97 03/06/19 07:36 03/06/19 03:14 03/06/19 03:14 03/06/19 03:14 03/06/19 03:14 Physical Exam: Gen: Awake and alert. No complaints. "When can I go home?" HEENT: NCAT, PERRL Lungs: Clear bilat Cardiac: S1S2 regular Abdomen: soft, NT, ND, +BS Extremities: No edema Neuro: A&O, grossly non-focal Fluid Balance (Past 24 Hours): I= O= Net Intake & Output 03/04/19 03/05/19 03/06/19 03/07/19 06:59 06:59 06:59 06:59 Intake Total 2829 Output Total 1300 Balance 1529 Weight 83.915 kg Intake: IV Fluids 2179 NS (0.9%) 2179 Oral 650 Output: Schultz 1300 Other: Estimated Void Small Date of Last Bowel 03/04/2019 Movement # Bowel Movements 3 Estimated Stool Amount Small # Voids 2 Labs: Laboratory Results - last 24 hr 03/05/19 03/05/19 03/06/19 10:50 13:08 05:25 WBC 2.6 L RBC 2.38 L Hgb 7.8 L Hct 23 L MCV 96 H MCH 33 H MCHC 34 RDW 17 H Plt Count 121 L MPV 7.2 L Neut % (Auto) 57.8 Lymph % (Auto) 27.6 [place] % (Auto) 9.7 Eos % (Auto) 3.7 Baso % (Auto) 1.2 Absolute Neuts (auto) 1.5 Absolute Lymphs (auto) 0.7 L Absolute Monos (auto) 0.2 Absolute Eos (auto) 0.1 Absolute Basos (auto) 0.0 Absolute Nucleated RBC 0.0 Nucleated RBC % 0.1 Sodium Potassium Chloride Carbon Dioxide Anion Gap BUN Creatinine Est GFR ( Amer) Est GFR (Non-Af Amer) BUN/Creatinine Ratio Glucose Lactic Acid 2.0 Calcium Phosphorus Magnesium Total Bilirubin AST ALT Alkaline Phosphatase Ammonia Total Protein Albumin Globulin Albumin/Globulin Ratio Urine Color Yellow Urine Appearance Clear Urine pH 7.0 Ur Specific [place] 1.014 Urine Protein Negative Urine Ketones Negative Urine Blood Negative Urine Nitrate Negative Urine Bilirubin Negative Urine Urobilinogen Negative Ur Leukocyte Esterase Negative Urine Glucose Negative 03/06/19 03/06/19 05:25 05:25 WBC RBC Hgb Hct MCV MCH MCHC RDW Plt Count MPV Neut % (Auto) Lymph % (Auto) [place] % (Auto) Eos % (Auto) Baso % (Auto) Absolute Neuts (auto) Absolute Lymphs (auto) Absolute Monos (auto) Absolute Eos (auto) Absolute Basos (auto) Absolute Nucleated RBC Nucleated RBC % Sodium 137 Potassium 4.2 Chloride 117 H Carbon Dioxide 14 L* Anion Gap 6 BUN 34 H Creatinine 2.31 H Est GFR ( Amer) 33.4 Est GFR (Non-Af Amer) 27.6 BUN/Creatinine Ratio 14.7 Glucose 93 Lactic Acid Calcium 7.7 L Phosphorus 3.6 Magnesium 2.0 Total Bilirubin 0.60 AST 35 ALT 30 Alkaline Phosphatase 105 H Ammonia 94 H Total Protein 5.6 L Albumin 1.9 L Globulin 3.7 Albumin/Globulin Ratio 0.5 L Urine Color Urine Appearance Urine pH Ur Specific [place] Urine Protein Urine Ketones Urine Blood Urine Nitrate Urine Bilirubin Urine Urobilinogen Ur Leukocyte Esterase Urine Glucose Nutrition: Eating low protein diet. Impression: Hepatic encephalopathy and TELMA secondary to dehydration both improved. Plan: Hepatic Encephalopathy - mental status returned to baseline. Lactulose at outpt dosing. Dehydration improved. Cont low protein diet. Remains on his nadolol, rifaximin and spironolactone. Lasix remains on hold. Acute Kidney Injury - Cr down with hydration. NAGMA from hyperchloremic fluid. Fluid changed to D5 /150mEq NaHCO3 per liter to run at 75cc/hr Dehydration - better turgor on exam. Cr down. Taking PO, continue IVF at attenuated rate. MALISSA schultz. Lasix still on hold. Anemia - EPO today. Hgb down with hydration still in his usual range and no clinical bleeding. HLD - continue lipitor BPH - tamsulosin Hx VTE - continue subcut heparin PT today and let's see if he might qualify for acute rehab. Perhaps a good opportunity. D/W pt and family in detail. Pt willing to consider if PT thinks it is appropriate. Medically stable for transfer to medicine.
[2019-03-06] MEDS ORDERED: EPOETIN ALFA-EPBX * 3,000 UNIT/ML VIAL SUBCUT ONE (09:15)
[2019-03-06] MEDS: Sodium Bicarbonate 8.4% IV* 150 MEQ in D5W 1000 ML BAG* 850 ML IV SCH ×2 (10:58→23:26)
[2019-03-06] MEDS: Tamsulosin CAP* 0.4 MG PO SCH (22:42)
[2019-03-06] MEDS: Spironolactone TAB* 25 MG PO SCH (23:25)
[2019-03-06] MEDS ORDERED: Ondansetron INJ* 2 MG/ML VIAL IV PRN (23:50)
[2019-03-07] MEDS: Heparin VIAL(*) 5000 UNITS/ML VIAL (FIVE THOUSAND) SUBCUT SCH ×3 (06:16→20:07)
[2019-03-07 09:26] LABS: ABS Eosinophils 0.1 10^3/ul (0-0.6); ABS Lymphocytes 0.7 10^3/ul (1.0-4.8); ABS Monocytes 0.3 10^3/ul (0-0.8); Hematocrit 21 % (42-52); Hemoglobin 7.4 g/dL (14.0-18.0); Lymphocyte % 33.9 %; Mean Corpuscular HGB Conc 35 g/dL (31-36); Mean Corpuscular Hemoglobin 33 pg (27-31); Mean Corpuscular Volume 95 fL (80-94); Mean Platelet Volume 7.2 fL (7.4-10.4); Nucleated Red Blood Cells % 0.2; Platelet Count 116 10^3/uL (150-450); Red Blood Count 2.24 10^6 /uL (4.18-5.48); Red Cell Distribution Width 17 % (10-15); White Blood Count 2.1 10^3/uL (3.5-10.8)
[2019-03-07 09:32] LABS: INR 1.13 (0.82-1.09)
[2019-03-07 09:44] LABS: Albumin 1.9 g/dL (3.2-5.2); Albumin/Globulin Ratio 0.5 (1-3); BUN/Creatinine Ratio 12.5 (8-20); Calcium 7.3 mg/dL (8.6-10.3); EGFR African American 33.2 (>60); EGFR Non-African American 27.4 (>60); Globulin 3.5 g/dL (2-4); Potassium 4.2 mmol/L (3.5-5.0); Total Bilirubin 0.6 mg/dL (0.2-1.0); Total Protein 5.4 g/dL (6.4-8.9)
[2019-03-07] MEDS: Atorvastatin* 80 MG TAB PO SCH (09:55)
[2019-03-07] MEDS: Magnesium Oxide TAB* 400 MG PO SCH (09:56)
[2019-03-07] MEDS: RiFAXimin* 550 MG TAB PO SCH ×2 (09:57→20:07)
[2019-03-07] MEDS: Nadolol TAB* 40 MG PO SCH (09:58)
[2019-03-07] MEDS: Ferrous Sulfate TAB* 325 MG PO SCH ×2 (09:58→20:06)
[2019-03-07] MEDS: Aspirin EC TAB* 81 MG TAB.EC PO SCH (09:59)
[2019-03-07] MEDS: Pantoprazole TAB * 40 MG TAB PO SCH ×2 (09:59→20:07)
[2019-03-07] MEDS: Furosemide TAB* 40 MG PO SCH (10:05)
--- NOTE | 2019-03-07 12:03 | PN ---
Subjective Date of Service: 03/07/19 Interval History: pt c/o feeling very weak and tired. Had been taking lactulose, upset that the ammonia level is high again. seen with his by the bedside. Denies abd pain Objective Active Medications: Aspirin (Aspirin Ec Tab*) 81 mg PO DAILY [facility] Last Admin: 03/07/19 09:59 Dose: 81 mg Atorvastatin Calcium (Lipitor*) 80 mg PO DAILY [facility] Last Admin: 03/07/19 09:55 Dose: 80 mg Ferrous Sulfate (Ferrous Sulfate Tab*) 325 mg PO BID [facility] Last Admin: 03/07/19 09:58 Dose: 325 mg Furosemide (Lasix Tab*) 40 mg PO DAILY [facility] Last Admin: 03/07/19 10:05 Dose: 40 mg Heparin Sodium (Porcine) (Heparin Vial(*)) 5,000 units SUBCUT Q8HR [facility] Last Admin: 03/07/19 06:16 Dose: 5,000 units Sodium Bicarbonate 150 meq/ (Dextrose) 1,000 mls @ 75 mls/hr IV Q13H [facility] Last Admin: 03/06/19 23:26 Dose: 75 mls/hr Lactulose (Lactulose*) 45 ml PO TID [facility] Magnesium Oxide (Magox 400 Tab*) 400 mg PO DAILY [facility] Last Admin: 03/07/19 09:56 Dose: 400 mg Nadolol (Corgard Tab*) 20 mg PO DAILY [facility] Last Admin: 03/07/19 09:58 Dose: 20 mg Ondansetron HCl (Zofran Inj*) 4 mg IV Q4H PRN PRN Reason: NAUSEA/VOMITING Pantoprazole Sodium (Protonix Tab*) 40 mg PO BID [facility] Last Admin: 03/07/19 09:59 Dose: 40 mg Rifaximin (Xifaxan*) 550 mg PO BID [facility] Last Admin: 03/07/19 09:57 Dose: 550 mg Spironolactone (Aldactone Tab*) 50 mg PO QPM [facility] Last Admin: 03/06/19 23:25 Dose: 50 mg Tamsulosin HCl (Flomax Cap*) 0.4 mg PO BEDTIME [facility] Last Admin: 03/06/19 22:42 Dose: 0.4 mg Vital Signs - 8 hr 03/07/19 03/07/19 03/07/19 07:15 08:00 11:35 Temperature 98.1 F 98.2 F Pulse Rate 50 57 Respiratory 16 18 16 Rate Blood Pressure 96/42 94/36 (mmHg) O2 Sat by Pulse 100 100 Oximetry Oxygen Devices in Use Now: None Appearance: 79 yo M in nAD, AAOx3, lethargic, but awake Eyes: No Scleral Icterus, PERRLA Ears/Nose/Mouth/Throat: NL Teeth, Lips, Gums, Mucous Membranes Moist Neck: NL Appearance and Movements; NL JVP, Trachea Midline Respiratory: Symmetrical Chest Expansion and Respiratory Effort, Clear to Auscultation Cardiovascular: NL Sounds; No Murmurs; No JVD Abdominal: NL Sounds; No Tenderness; No Distention, No Hepatosplenomegaly Lymphatic: No Cervical Adenopathy Extremities: No Clubbing, Cyanosis, - - trace pedfal edema b/l Skin: No Nodules or Sclerosis Neurological: Alert and Oriented x 3, NL Muscle Strength and Tone Result Diagrams: 03/07/19 09:17 03/07/19 09:17 Microbiology and Other Data: Microbiology 03/05/19 13:25 Nasal Screen MRSA (PCR) - Final Nasal Mrsa Not Detected Assess/Plan/Problems-Billing Assessment: 79 yo M h/o cryptogenic cirrhosis s/p TIPS, h/o hepatic encephalopathy, CAD s/p multiple stents in February 2018 complicated by GIB s/p polypectomy with continued bleeding and subsequent discontinuation of plavix, DVT s/p IVC filter, 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 Looney (GI/hepatology from [place]) has had liver biopsies in past CATALINO neg in past (2) Hepatic encephalopathy Comment: - Ammonia markedly increased today. cont Rifaximin, increrasing Lactulose for 30 to 45 ml TID stool occult to r/o GI bleed (3) Anemia Comment: Pancytopenia D/w Heme/Onc Pt follows with dr reese as outpatient. On Epogen Receives Iron infusion as outpatient and on po iron Had bone marrow biopsy in 2016 poss smoldering myeloma/ monoclonal gammopathy will transfuse 1 U PRBC asper d/w DR. Reese Pt is Dr Syed's patient as an outpatient and has had extensive evaluation for heme + sttol, (will recheck today) and has had multiple scopes (4) CAD (coronary artery disease) Comment: cont aspirin did not tolerate plavix/ brylinta in past with bleeding and has been on aspirin drug eluting stents within 1 year per d/w pt per d/w GI has had extensive discussion about this with cardiology in the past (5) Chronic renal disease, stage 4, severely decreased glomerular filtration rate (GFR) between 15-29 mL/min/1.73 square meter Comment: creat at baseline (6) DVT (deep venous thrombosis) Comment: s/p ivc filter placement HSQ, SCD's Status and Disposition: inpatient
[2019-03-07] MEDS: Spironolactone TAB* 25 MG PO SCH (15:59)
[2019-03-07] MEDS: PTO: Azelastine 0.1% Nasal (NF) 30 ML BTL BOTH NARES SCH ×2 (16:00→22:10)
[2019-03-07] MEDS: Sodium Bicarbonate 8.4% IV* 150 MEQ in D5W 1000 ML BAG* 850 ML IV SCH (16:05)
[2019-03-07] MEDS: Tamsulosin CAP* 0.4 MG PO SCH (20:07)
[2019-03-07] MEDS: Ondansetron INJ* 2 MG/ML VIAL IV PRN (20:20)
[2019-03-08 05:30] LABS: ABS Eosinophils 0.1 10^3/ul (0-0.6); ABS Lymphocytes 0.7 10^3/ul (1.0-4.8); ABS Monocytes 0.3 10^3/ul (0-0.8); ABS Neutrophils 1.6 10^3/ul (1.5-7.7); Eosinophil % 3.5 %; Hematocrit 24 % (42-52); Hemoglobin 8.6 g/dL (14.0-18.0); Lymphocyte % 26.4 %; Mean Corpuscular HGB Conc 36 g/dL (31-36); Mean Corpuscular Hemoglobin 33 pg (27-31); Mean Corpuscular Volume 93 fL (80-94); Mean Platelet Volume 7.6 fL (7.4-10.4); Nucleated Red Blood Cells % 0.1; Platelet Count 120 10^3/uL (150-450); Red Cell Distribution Width 17 % (10-15); White Blood Count 2.6 10^3/uL (3.5-10.8)
[2019-03-08] MEDS ORDERED: Lactulose 300 ML for PR* 200 GM/300 ML BTL PR ONE (05:30)
--- NOTE | 2019-03-08 05:34 | PN ---
Hospitalist Progress Note Date of Service: 03/08/19 Was called to evaluate patient as he was getting more confused and lethargic. VS Stable Patient was lethargic opens eyes with painful stimuli. Moving all 4 extremity to pain but not following commands. Room had the odor of melanotic stools. present at bedside stated this is his usual presentation when his ammonia is elevated. Impression: Likely worsening hepatic encephalopathy, possible upper GI bleeding. Plan: Transfer to ICU for close monitoring. Stat labs ordered now. Start lactulose rectal if patient doesn't improve in mental status will consider NG tube. Would prefer to avoid NG given history of GI bleeding from esophageal varicose. Will hold DVT PPx Heparin until blood work return to r/o any worsening Hb.
[2019-03-08] MEDS: Sodium Bicarbonate 8.4% IV* 150 MEQ in D5W 1000 ML BAG* 850 ML IV SCH ×3 (05:46→20:32)
[2019-03-08 05:49] LABS: BUN/Creatinine Ratio 12.4 (8-20); Calcium 7.6 mg/dL (8.6-10.3); EGFR African American 32.9 (>60); EGFR Non-African American 27.2 (>60); Potassium 4.3 mmol/L (3.5-5.0)
[2019-03-08] MEDS: Pantoprazole IV* 40 MG IV SCH (13:11)
[2019-03-08] MEDS: RiFAXimin* 550 MG TAB PO SCH ×2 (13:18→20:50)
[2019-03-08] MEDS: Aspirin EC TAB* 81 MG TAB.EC PO SCH (13:18)
[2019-03-08] MEDS: Furosemide TAB* 40 MG PO SCH (13:18)
[2019-03-08] MEDS: Pantoprazole TAB * 40 MG TAB PO SCH ×2 (13:18→20:50)
[2019-03-08] MEDS: Ferrous Sulfate TAB* 325 MG PO SCH ×2 (13:18→20:50)
[2019-03-08] MEDS: Atorvastatin* 80 MG TAB PO SCH (13:18)
[2019-03-08] MEDS: Magnesium Oxide TAB* 400 MG PO SCH (13:18)
[2019-03-08] MEDS: PTO: Azelastine 0.1% Nasal (NF) 30 ML BTL BOTH NARES SCH ×2 (13:19→20:50)
--- NOTE | 2019-03-08 13:43 | PN ---
Subjective Date of Service: 03/08/19 Interval History: Pt was transferred to ICU for marked lethargy. His ammonia >300. this AM has has multiple BM's Seen with and daughter Sitting on the edge of bed on the bedpan, mumbling Objective Active Medications: Aspirin (Aspirin Ec Tab*) 81 mg PO DAILY [facility] Last Admin: 03/08/19 13:18 Dose: 81 mg Atorvastatin Calcium (Lipitor*) 80 mg PO DAILY [facility] Last Admin: 03/08/19 13:18 Dose: 80 mg Azelastine HCl (Astepro 0.1% Nasal (Nf)) 1 spray BOTH NARES BID [facility] Last Admin: 03/08/19 13:19 Dose: 1 spray Ferrous Sulfate (Ferrous Sulfate Tab*) 325 mg PO BID [facility] Last Admin: 03/08/19 13:18 Dose: 325 mg Furosemide (Lasix Tab*) 40 mg PO DAILY [facility] Last Admin: 03/08/19 13:18 Dose: 40 mg Sodium Bicarbonate 150 meq/ (Dextrose) 1,000 mls @ 75 mls/hr IV Q13H [facility] Last Admin: 03/08/19 05:46 Dose: 75 mls/hr Lactulose (Lactulose*) 45 ml PO TID [facility] Last Admin: 03/08/19 13:11 Dose: 45 ml Magnesium Oxide (Magox 400 Tab*) 400 mg PO DAILY [facility] Last Admin: 03/08/19 13:18 Dose: 400 mg Nadolol (Corgard Tab*) 20 mg PO DAILY [facility] Last Admin: 03/07/19 09:58 Dose: 20 mg Ondansetron HCl (Zofran Inj*) 4 mg IV Q4H PRN PRN Reason: NAUSEA/VOMITING Last Admin: 03/07/19 20:20 Dose: 4 mg Pantoprazole Sodium (Protonix Tab*) 40 mg PO BID [facility] Last Admin: 03/08/19 13:18 Dose: Not Given Pantoprazole Sodium (Protonix Iv*) 40 mg IV Q12H [facility] Last Admin: 03/08/19 13:11 Dose: 40 mg Rifaximin (Xifaxan*) 550 mg PO BID [facility] Last Admin: 03/08/19 13:18 Dose: 550 mg Spironolactone (Aldactone Tab*) 50 mg PO QPM [facility] Last Admin: 03/07/19 15:59 Dose: 50 mg Tamsulosin HCl (Flomax Cap*) 0.4 mg PO BEDTIME [facility] Last Admin: 03/07/19 20:07 Dose: 0.4 mg Vital Signs - 8 hr 03/08/19 03/08/19 03/08/19 05:45 05:51 06:00 Temperature Pulse Rate 71 71 Respiratory 14 16 14 Rate Blood Pressure 152/70 135/72 (mmHg) O2 Sat by Pulse 98 97 Oximetry 03/08/19 03/08/19 03/08/19 06:15 06:30 06:45 Temperature Pulse Rate 73 74 74 Respiratory 13 11 12 Rate Blood Pressure 136/64 129/61 144/66 (mmHg) O2 Sat by Pulse 97 98 98 Oximetry 03/08/19 03/08/19 03/08/19 07:00 07:15 07:30 Temperature Pulse Rate 75 72 Respiratory 16 10 12 Rate Blood Pressure 140/68 150/67 (mmHg) O2 Sat by Pulse 98 100 Oximetry 03/08/19 03/08/19 03/08/19 07:48 07:50 08:00 Temperature 98.1 F Pulse Rate 71 Respiratory 12 11 Rate Blood Pressure 122/57 (mmHg) O2 Sat by Pulse 98 Oximetry 03/08/19 03/08/19 03/08/19 08:02 09:00 09:01 Temperature Pulse Rate 71 56 53 Respiratory 11 12 13 Rate Blood Pressure 103/42 (mmHg) O2 Sat by Pulse 98 97 99 Oximetry 03/08/19 03/08/19 03/08/19 10:00 10:28 11:00 Temperature Pulse Rate 55 50 57 Respiratory 13 14 10 Rate Blood Pressure 112/46 102/40 (mmHg) O2 Sat by Pulse 100 99 98 Oximetry 03/08/19 03/08/19 03/08/19 11:24 12:00 13:00 Temperature 97.1 F Pulse Rate 53 51 Respiratory 11 10 Rate Blood Pressure 104/50 94/43 (mmHg) O2 Sat by Pulse 99 99 Oximetry Oxygen Devices in Use Now: None Appearance: 79 yo M in nAD, lethargic, mumbling Eyes: No Scleral Icterus, PERRLA Ears/Nose/Mouth/Throat: NL Teeth, Lips, Gums, Mucous Membranes Moist Neck: NL Appearance and Movements; NL JVP, Trachea Midline Respiratory: Symmetrical Chest Expansion and Respiratory Effort Cardiovascular: NL Sounds; No Murmurs; No JVD, RRR Abdominal: - - mild ascites, soft, NT, BS+ Lymphatic: No Cervical Adenopathy Extremities: No Edema, No Clubbing, Cyanosis Skin: No Rash or Ulcers, No Nodules or Sclerosis Neurological: Alert and Oriented x 3, NL Muscle Strength and Tone Result Diagrams: 03/08/19 04:43 03/08/19 04:43 Microbiology and Other Data: Microbiology 03/05/19 13:25 Nasal Screen MRSA (PCR) - Final Nasal Mrsa Not Detected Assess/Plan/Problems-Billing Assessment: 79 yo M h/o cryptogenic cirrhosis s/p TIPS, h/o hepatic encephalopathy, CAD s/p multiple stents in February 2018 complicated by GIB s/p polypectomy with continued bleeding and subsequent discontinuation of plavix, DVT s/p IVC filter, 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 Pt very lethargic, but able to take PO. cont Rifaximin increasing Lactulose to 45 ml QID stool occult positiove likely the cause of increased ammonia. GI-Dr. Campo consulted. Started on Protonix IV BID. stool is brown and loose with no gross evidence of blood or melena (2) Cryptogenic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 liver Comment: had had extensive w/u in the past -follows with dr Garcia s/p TIPS 02/2018 , under the care of Dr. Looney (GI/hepatology from [place]) has had liver biopsies in past CATALINO neg in past (3) Anemia Comment: Pancytopenia D/w Heme/Onc Pt follows with dr reese as outpatient. On Epogen Receives Iron infusions as outpatient and on po iron Had bone marrow biopsy in 2016 poss smoldering myeloma/ monoclonal gammopathy Transfuse 1 U PRBC as per d/w DR. Reese on 03/07/19 with appropiate raise on Hb Pt is Dr Garcia's patient as an outpatient and has had extensive evaluation for heme + stool, (will recheck today) and has had multiple scopes (4) CAD (coronary artery disease) Comment: cont aspirin did not tolerate plavix/ brylinta in past with bleeding and has been on aspirin drug eluting stents within 1 year per d/w pt per d/w GI has had extensive discussion about this with cardiology in the past (5) Chronic renal disease, stage 4, severely decreased glomerular filtration rate (GFR) between 15-29 mL/min/1.73 square meter Comment: creat at baseline (6) DVT (deep venous thrombosis) Comment: s/p ivc filter placement SCD's Heparin d/c due to GI bleed Status and Disposition: inpatient
[2019-03-08] MEDS: Nadolol TAB* 40 MG PO SCH (14:28)
[2019-03-08] MEDS: Spironolactone TAB* 25 MG PO SCH (17:51)
[2019-03-08] MEDS: Tamsulosin CAP* 0.4 MG PO SCH (20:50)
--- NOTE | 2019-03-09 00:39 | CONS ---
GASTROENTEROLOGY CONSULT DATE: 03/08/19 CONSULTING PHYSICIAN: Maryjo Arriaga MD; Isaac Ruzi MD. REASON FOR CONSULTATION: Rising ammonia to 327 despite maximal medical management. 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 This past week on 03/04/19, his routine weekly labs per Dr Guillen, (he has been directing his transfusions recently - 13 units the last 6 months), his hemoglobin level was relatively good at 8.7, but the ammonia at 286 was alarming. That day however, he was actually mentally pretty good according to his . The next morning, however, he was unarousable and was brought to the emergency room. With maximum management on the nursing floor, his ammonia dropped to 94, 2 days ago, but then he became less responsive last night and was 327 this morning. He was given a lactulose enema and that was quite productive and he has awakened this afternoon. He had felt weak and listless the 4-5 days prior to the admission though there was no fever, abdominal pain, emesis or change in his loose stool - no overtly bloody stool. His says he keeps the house very warm. His outpatient regime is basically same as the inpatient with lactulose 30 t.i.d., rifaximin 550 b.i.d., pantoprazole 40 b.i.d., nadolol 40 mg, spironolactone 50, furosemide 40 and Epogen 3000 twice a week. He has been taking aspirin 81 mg. He still has been chronically heme positive. In September 2017 he had chronic GI bleeding secondary to portal hypertensive gastropathy and then also developed ascites. No varices on 2017 initial EGD. He had TIPS in February 2018. The TIPS was expanded Apr 26 2018 with gradient dropping from 12 to 5 (see Dr Looney "Other Facility" May 2018) and after that hepatic encephalopathy began to be noted. The first ammonia levels in the hospital record are seen on 06/09/18 at 2:32. The values then came down to generally under a 100 although some excursions 179 or 180 were seen as of . There was then a gap where ammonia levels were not needed generally until November 2018, when it was 200. During that time, he has had rifaximin and at home has been taking lactulose 30 mL 3 times a day, although the first dose is often held if he has a doctor's appointment that day as he cannot manage his bowels in that circumstance. At home, he generally has 3 to 4 sloppy stools a day, they were almost watery. He has never had enema treatments at home. PAST MEDICAL HISTORY: 1. Cryptogenic cirrhosis - discovered when he had a nodular liver and several liters of ascites at the time of lap brijesh Aug 2016; conclusion supported after second opinions at [facility] February 2017 and [facility] December 2016 with complications sequentially of ascites, then portal hypertensive gastropathy, then worsening ascites, then he had TIPS procedure with revision at [place]. He did have a palliative care consult in July 2018 and hospice was turned down. Abd US September 2018 showed substantial ascites 2. Coronary artery disease - status post multiple stents -remote and then early 2018 metal and most recently drug- eluting stent in [place] during an admission for the TIPS revision. Antiplatelet agents had to be abandoned because of recurrent GI bleeding around 2017 when they were restarted after his colonoscopy and multiple polypectomies. 3. Colon polyps -2012 colonoscopy removed 6 then at f/u on Plavix fall 2017 many right sided and felt to be contributing to heme+ and anemia status- At [place] Plavix discontinued for removal of 11 polyps (many large pedunculated - 5 clipped) in May 2018. 4. Monoclonal gammopathy. 5. History of bladder cancer. 6. Chronic renal disease - creatinine edging upwarding now in the 2.3 to 2.4 range. 7. s/p Cholecystectomy 8. Pacemaker. 9. 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 There are numerous physicians in the family, chiefly in the [place] area. REVIEW OF SYSTEMS: No history of seizure, CVA, syncope, recent chest pain, conduction disorder, hemoptysis, TB, viral hepatitis, peptic ulcer. PHYSICAL EXAM: He is an elderly man interviewed with his - appearing chronically ill, quite pale in the ICU, afebrile. Blood pressure 94/40, pulse 55. He is pale without overt icterus, in no overt distress. He has no adenopathy. Breath sounds are diminished, but symmetric. Heart sounds are regular. The abdomen is grossly distended distended with an umbilical horizontal scar. There is no mass or tenderness, the exam is limited. He appears to have ascites. Rectal deferred. Extremity show poor muscle bulk. He is alert and oriented, but speaks slowly and appear somewhat encephalopathic. Mild asterixis with his holding his hands generally stable DIAGNOSTIC STUDIES/LAB DATA: Today, white count 2.6, hemoglobin 8.6, hematocrit 24, platelets 120. INR 1.13. BUN 29, creatinine 2.34. Sodium 136, potassium 4.3. Ammonia this morning 327. Albumin 1.9. TSH 0.62. IMPRESSION: This 79-year-old man with cryptogenic cirrhosis has had portal hypertension as the leading problem. His liver synthetic function as shown by bili and INR has been fairly good or compensated. He has had maximal medical therapy for ascites including TIPS, which has created a situation with hepatic encephalopathy (first documented May 2018) with a very thin margin for staying out of encephalopathy. Despite the TIPS he has ascites and is heme positive stool and is transfusion dependent. CRF depresses Hg. How much the MGUS contributes is unknown. He is very fragile and subject to decompensation even with no secondary illness / diagnosis apparent this past week. Maximal medical therapy has been given to him and at this time may be failing. He may become hospital bound dependent upon enema treatment or amounts of lactulose creating a burden of diarrhea that is unsustainable for home care. Referral out for a second opinion is a consideration. It may be time to revisit the issue of palliative care. [id number]/[facility] #: [id number] [facility]IAL HOSPITALMadeleine
[2019-03-09] MEDS: Pantoprazole IV* 40 MG IV SCH ×3 (00:45→21:45)
[2019-03-09 05:42] LABS: ABS Eosinophils 0.1 10^3/ul (0-0.6); ABS Lymphocytes 0.8 10^3/ul (1.0-4.8); ABS Monocytes 0.2 10^3/ul (0-0.8); ABS Neutrophils 1.6 10^3/ul (1.5-7.7); Hematocrit 26 % (42-52); Hemoglobin 9.1 g/dL (14.0-18.0); Lymphocyte % 27.9 %; Mean Corpuscular HGB Conc 35 g/dL (31-36); Mean Corpuscular Hemoglobin 33 pg (27-31); Mean Corpuscular Volume 94 fL (80-94); Mean Platelet Volume 7.4 fL (7.4-10.4); Nucleated Red Blood Cells % 0.1; Platelet Count 132 10^3/uL (150-450); Red Blood Count 2.79 10^6 /uL (4.18-5.48); Red Cell Distribution Width 17 % (10-15); White Blood Count 2.8 10^3/uL (3.5-10.8)
[2019-03-09] MEDS: Sodium Bicarbonate 8.4% IV* 150 MEQ in D5W 1000 ML BAG* 850 ML IV SCH (05:57)
[2019-03-09 06:03] LABS: BUN/Creatinine Ratio 10.8 (8-20); Calcium 7.8 mg/dL (8.6-10.3); EGFR African American 33.2 (>60); EGFR Non-African American 27.4 (>60); Potassium 3.8 mmol/L (3.5-5.0)
[2019-03-09] MEDS: Aspirin EC TAB* 81 MG TAB.EC PO SCH (08:33)
[2019-03-09] MEDS: RiFAXimin* 550 MG TAB PO SCH ×2 (08:33→21:45)
[2019-03-09] MEDS: Magnesium Oxide TAB* 400 MG PO SCH (08:33)
[2019-03-09] MEDS: Ferrous Sulfate TAB* 325 MG PO SCH ×2 (08:33→21:00)
[2019-03-09] MEDS: Atorvastatin* 80 MG TAB PO SCH (08:33)
[2019-03-09] MEDS: PTO: Azelastine 0.1% Nasal (NF) 30 ML BTL BOTH NARES SCH ×2 (08:48→21:45)
[2019-03-09] MEDS: Nadolol TAB* 40 MG PO SCH (08:51)
--- NOTE | 2019-03-09 10:24 | PN ---
Subjective Date of Service: 03/09/19 Interval History: Pt is eating a lot today. feels much stronger Objective Active Medications: Aspirin (Aspirin Ec Tab*) 81 mg PO DAILY [facility] Last Admin: 03/09/19 08:33 Dose: 81 mg Atorvastatin Calcium (Lipitor*) 80 mg PO DAILY [facility] Last Admin: 03/09/19 08:33 Dose: 80 mg Azelastine HCl (Astepro 0.1% Nasal (Nf)) 1 spray BOTH NARES BID [facility] Last Admin: 03/09/19 08:48 Dose: 1 spray Ferrous Sulfate (Ferrous Sulfate Tab*) 325 mg PO BID [facility] Last Admin: 03/09/19 08:33 Dose: 325 mg Furosemide (Lasix Tab*) 40 mg PO DAILY [facility] Lactulose (Lactulose*) 45 ml PO QID [facility] Last Admin: 03/09/19 08:34 Dose: 45 ml Magnesium Oxide (Magox 400 Tab*) 400 mg PO DAILY [facility] Last Admin: 03/09/19 08:33 Dose: 400 mg Nadolol (Corgard Tab*) 20 mg PO DAILY [facility] Last Admin: 03/09/19 08:51 Dose: Not Given Ondansetron HCl (Zofran Inj*) 4 mg IV Q4H PRN PRN Reason: NAUSEA/VOMITING Last Admin: 03/07/19 20:20 Dose: 4 mg Pantoprazole Sodium (Protonix Iv*) 40 mg IV 0900,2100 [facility] Last Admin: 03/09/19 08:33 Dose: 40 mg Rifaximin (Xifaxan*) 550 mg PO BID [facility] Last Admin: 03/09/19 08:33 Dose: 550 mg Spironolactone (Aldactone Tab*) 50 mg PO QPM [facility] Last Admin: 03/08/19 17:51 Dose: 50 mg Tamsulosin HCl (Flomax Cap*) 0.4 mg PO BEDTIME [facility] Last Admin: 03/08/19 20:50 Dose: 0.4 mg Vital Signs - 8 hr 03/09/19 03/09/19 03/09/19 02:00 02:30 03:00 Temperature Pulse Rate 57 64 62 Respiratory 13 13 11 Rate Blood Pressure 93/46 102/56 94/39 (mmHg) O2 Sat by Pulse 97 100 100 Oximetry 03/09/19 03/09/19 03/09/19 03:30 03:53 03:54 Temperature Pulse Rate 59 62 60 Respiratory 8 4 6 Rate Blood Pressure 86/36 99/35 91/34 (mmHg) O2 Sat by Pulse 99 99 100 Oximetry 03/09/19 03/09/19 03/09/19 04:00 04:30 05:12 Temperature 98.3 F Pulse Rate 64 57 66 Respiratory 0 13 17 Rate Blood Pressure 89/33 90/39 (mmHg) O2 Sat by Pulse 98 97 99 Oximetry 03/09/19 03/09/19 03/09/19 05:14 05:30 06:00 Temperature Pulse Rate 55 82 Respiratory 14 12 13 Rate Blood Pressure 92/42 105/52 (mmHg) O2 Sat by Pulse 99 98 Oximetry 03/09/19 03/09/19 03/09/19 06:01 06:17 06:18 Temperature Pulse Rate 57 60 59 Respiratory 10 12 11 Rate Blood Pressure 90/32 76/44 80/36 (mmHg) O2 Sat by Pulse 99 99 99 Oximetry 03/09/19 03/09/19 03/09/19 06:30 07:00 07:30 Temperature Pulse Rate 66 62 57 Respiratory 12 12 12 Rate Blood Pressure 96/42 100/39 88/37 (mmHg) O2 Sat by Pulse 97 100 99 Oximetry 03/09/19 03/09/19 03/09/19 07:35 08:00 08:30 Temperature 97.3 F Pulse Rate 68 62 Respiratory 15 11 Rate Blood Pressure 98/57 82/35 (mmHg) O2 Sat by Pulse 98 97 Oximetry 03/09/19 03/09/19 03/09/19 09:00 09:01 09:31 Temperature Pulse Rate 56 59 68 Respiratory 12 11 14 Rate Blood Pressure 96/40 90/48 (mmHg) O2 Sat by Pulse 97 96 99 Oximetry Oxygen Devices in Use Now: None Appearance: 79 yo M in nAD, AAOx3 Eyes: No Scleral Icterus, PERRLA Ears/Nose/Mouth/Throat: NL Teeth, Lips, Gums, Mucous Membranes Moist Neck: NL Appearance and Movements; NL JVP, Trachea Midline Respiratory: Symmetrical Chest Expansion and Respiratory Effort, Clear to Auscultation Cardiovascular: NL Sounds; No Murmurs; No JVD, RRR Abdominal: NL Sounds; No Tenderness; No Distention Lymphatic: No Cervical Adenopathy Extremities: No Clubbing, Cyanosis, - - trace-minimal ankle edema b/l Skin: No Rash or Ulcers, No Nodules or Sclerosis Neurological: Alert and Oriented x 3, NL Muscle Strength and Tone Result Diagrams: 03/09/19 05:22 03/09/19 05:22 Microbiology and Other Data: Microbiology 03/05/19 13:25 Nasal Screen MRSA (PCR) - Final Nasal Mrsa Not Detected Assess/Plan/Problems-Billing Assessment: 79 yo M h/o cryptogenic cirrhosis s/p TIPS, h/o hepatic encephalopathy, CAD s/p multiple stents in February 2018 complicated by GIB s/p polypectomy with continued bleeding and subsequent discontinuation of plavix, DVT s/p IVC filter, 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 Encephalopathy resolving cont Rifaximin cont Lactulose at 45 ml QID stool occult positive likely the cause of increased ammonia. GI-Dr. Campo's consult appreciated: pt had multiple polyps in the past as well as portal gastropathy cont Protonix IV BID. stool is brown and loose with no gross evidence of blood or melena (2) Cryptogenic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 liver Comment: had had extensive w/u in the past -follows with dr Garcia s/p TIPS 02/2018 ans TIPS revision 03/2018 , under the care of Dr. Looney (GI/ hepatology from [place]) has had liver biopsies in past CATALINO neg in past (3) Anemia Comment: Pancytopenia D/w Heme/Onc Pt follows with dr Guillen as outpatient. On Epogen Receives Iron infusions as outpatient and on po iron Had bone marrow biopsy in 2016 poss smoldering myeloma/ monoclonal gammopathy Transfused 1 U PRBC as per d/w DR. Guillen on 03/07/19 with appropiate raise on Hb (4) CAD (coronary artery disease) Comment: cont aspirin did not tolerate plavix/ brylinta in past with bleeding and has been on aspirin drug eluting stents within 1 year per d/w pt per d/w GI has had extensive discussion about this with cardiology in the past (5) Chronic renal disease, stage 4, severely decreased glomerular filtration rate (GFR) between 15-29 mL/min/1.73 square meter Comment: creat at baseline (6) DVT (deep venous thrombosis) Comment: s/p ivc filter placement SCD's Heparin d/c due to GI bleed Status and Disposition: inpatient
[2019-03-09] MEDS: Spironolactone TAB* 25 MG PO SCH (18:13)
[2019-03-09] MEDS: Tamsulosin CAP* 0.4 MG PO SCH (21:45)
[2019-03-10] MEDS: Ondansetron INJ* 2 MG/ML VIAL IV PRN ×2 (00:06→17:27)
[2019-03-10 05:31] LABS: ABS Eosinophils 0.1 10^3/ul (0-0.6); ABS Lymphocytes 0.9 10^3/ul (1.0-4.8); ABS Monocytes 0.3 10^3/ul (0-0.8); ABS Neutrophils 1.3 10^3/ul (1.5-7.7); Hematocrit 23 % (42-52); Hemoglobin 7.7 g/dL (14.0-18.0); Lymphocyte % 33.7 %; Mean Corpuscular HGB Conc 34 g/dL (31-36); Mean Corpuscular Hemoglobin 32 pg (27-31); Mean Corpuscular Volume 94 fL (80-94); Mean Platelet Volume 7.2 fL (7.4-10.4); Nucleated Red Blood Cells % 0.1; Platelet Count 109 10^3/uL (150-450); Red Blood Count 2.39 10^6 /uL (4.18-5.48); Red Cell Distribution Width 17 % (10-15); White Blood Count 2.6 10^3/uL (3.5-10.8)
[2019-03-10 05:45] LABS: BUN/Creatinine Ratio 10.3 (8-20); Calcium 7.5 mg/dL (8.6-10.3); EGFR African American 33.2 (>60); EGFR Non-African American 27.4 (>60); Potassium 4.4 mmol/L (3.5-5.0)
[2019-03-10] MEDS: Magnesium Oxide TAB* 400 MG PO SCH (08:45)
[2019-03-10] MEDS: PTO: Azelastine 0.1% Nasal (NF) 30 ML BTL BOTH NARES SCH ×2 (08:45→21:13)
[2019-03-10] MEDS: Pantoprazole IV* 40 MG IV SCH ×2 (08:45→21:10)
[2019-03-10] MEDS: Furosemide TAB* 40 MG PO SCH (08:46)
[2019-03-10] MEDS: RiFAXimin* 550 MG TAB PO SCH ×2 (08:46→21:07)
[2019-03-10] MEDS: Ferrous Sulfate TAB* 325 MG PO SCH ×2 (08:46→21:05)
[2019-03-10] MEDS: Atorvastatin* 80 MG TAB PO SCH (08:46)
[2019-03-10] MEDS: Aspirin EC TAB* 81 MG TAB.EC PO SCH (08:46)
[2019-03-10] MEDS: Nadolol TAB* 40 MG PO SCH (08:47)
[2019-03-10] MEDS ORDERED: EPOETIN ALFA-EPBX * 3,000 UNIT/ML VIAL SUBCUT ONE (12:25)
--- NOTE | 2019-03-10 12:25 | PN ---
Subjective Date of Service: 03/10/19 Interval History: Pt feels well. Has "green diarrhea" from ;lactulose. Denies abd pain Objective Active Medications: Aspirin (Aspirin Ec Tab*) 81 mg PO DAILY [facility] Last Admin: 03/10/19 08:46 Dose: 81 mg Atorvastatin Calcium (Lipitor*) 80 mg PO DAILY [facility] Last Admin: 03/10/19 08:46 Dose: 80 mg Azelastine HCl (Astepro 0.1% Nasal (Nf)) 1 spray BOTH NARES BID [facility] Last Admin: 03/10/19 08:45 Dose: 1 spray Ferrous Sulfate (Ferrous Sulfate Tab*) 325 mg PO BID [facility] Last Admin: 03/10/19 08:46 Dose: 325 mg Furosemide (Lasix Tab*) 40 mg PO DAILY [facility] Last Admin: 03/10/19 08:46 Dose: 40 mg Lactulose (Lactulose*) 45 ml PO QID [facility] Last Admin: 03/10/19 08:45 Dose: 45 ml Magnesium Oxide (Magox 400 Tab*) 400 mg PO DAILY [facility] Last Admin: 03/10/19 08:45 Dose: 400 mg Nadolol (Corgard Tab*) 20 mg PO DAILY [facility] Last Admin: 03/10/19 08:47 Dose: Not Given Ondansetron HCl (Zofran Inj*) 4 mg IV Q4H PRN PRN Reason: NAUSEA/VOMITING Last Admin: 03/10/19 00:06 Dose: 4 mg Pantoprazole Sodium (Protonix Iv*) 40 mg IV 0900,2100 [facility] Last Admin: 03/10/19 08:45 Dose: 40 mg Rifaximin (Xifaxan*) 550 mg PO BID [facility] Last Admin: 03/10/19 08:46 Dose: 550 mg Spironolactone (Aldactone Tab*) 50 mg PO QPM [facility] Last Admin: 03/09/19 18:13 Dose: 50 mg Tamsulosin HCl (Flomax Cap*) 0.4 mg PO BEDTIME [facility] Last Admin: 03/09/19 21:45 Dose: 0.4 mg Vital Signs - 8 hr 03/10/19 03/10/19 03/10/19 07:00 08:56 11:15 Temperature 97.8 F 98.2 F Pulse Rate 62 64 Respiratory 16 18 16 Rate Blood Pressure 102/58 96/59 (mmHg) O2 Sat by Pulse 99 99 Oximetry Oxygen Devices in Use Now: None Appearance: 79 yo M in nAD, aAOx3 Eyes: No Scleral Icterus, PERRLA Ears/Nose/Mouth/Throat: NL Teeth, Lips, Gums, Mucous Membranes Moist Neck: NL Appearance and Movements; NL JVP, Trachea Midline Respiratory: Symmetrical Chest Expansion and Respiratory Effort, Clear to Auscultation Cardiovascular: NL Sounds; No Murmurs; No JVD, RRR Abdominal: NL Sounds; No Tenderness; No Distention, - - mild, soft ascites noted Extremities: No Edema, No Clubbing, Cyanosis Skin: No Rash or Ulcers, No Nodules or Sclerosis Neurological: Alert and Oriented x 3, NL Muscle Strength and Tone Result Diagrams: 03/10/19 05:12 03/10/19 05:21 Microbiology and Other Data: Microbiology 03/05/19 13:25 Nasal Screen MRSA (PCR) - Final Nasal Mrsa Not Detected Assess/Plan/Problems-Billing Assessment: 79 yo M h/o cryptogenic cirrhosis s/p TIPS, h/o hepatic encephalopathy, CAD s/p multiple stents in February 2018 complicated by GIB s/p polypectomy with continued bleeding and subsequent discontinuation of plavix, DVT s/p IVC filter, 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 Encephalopathy resolved cont Rifaximin cont Lactulose at 45 ml QID stool occult positive likely the cause of increased ammonia. GI-Dr. Campo's consult appreciated: pt had multiple polyps in the past as well as portal gastropathy cont Protonix IV BID. stool is brown and loose with no gross evidence of blood or melena (2) Cryptogenic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 liver Comment: had had extensive w/u in the past -follows with dr Garcia s/p TIPS 02/2018 ans TIPS revision 03/2018 , under the care of Dr. Looney (GI/ hepatology from [place]) has had liver biopsies in past CATALINO neg in past (3) Anemia Comment: Pancytopenia D/w Heme/Onc Pt follows with dr Guillen as outpatient. On Epogen-will oder a dose Receives Iron infusions as outpatient and on po iron Had bone marrow biopsy in 2017 poss smoldering myeloma/ monoclonal gammopathy Transfused 1 U PRBC as per d/w DR. Guillen on 03/07/19 with appropiate raise on Hb, now Hb down again but no signs of bleeding, cont to monitor (4) CAD (coronary artery disease) Comment: cont aspirin did not tolerate plavix/ brylinta in past with bleeding and has been on aspirin drug eluting stents within 1 year per d/w pt per d/w GI has had extensive discussion about this with cardiology in the past (5) Chronic renal disease, stage 4, severely decreased glomerular filtration rate (GFR) between 15-29 mL/min/1.73 square meter Comment: creat at baseline (6) DVT (deep venous thrombosis) Comment: s/p ivc filter placement SCD's Heparin d/c due to GI bleed Status and Disposition: inpatient
[2019-03-10] MEDS: Spironolactone TAB* 25 MG PO SCH (16:11)
[2019-03-10] MEDS: Tamsulosin CAP* 0.4 MG PO SCH (21:07)
[2019-03-11 05:21] LABS: ABS Eosinophils 0.1 10^3/ul (0-0.6); ABS Lymphocytes 0.8 10^3/ul (1.0-4.8); ABS Monocytes 0.3 10^3/ul (0-0.8); ABS Neutrophils 1.4 10^3/ul (1.5-7.7); Eosinophil % 5.1 %; Hematocrit 25 % (42-52); Hemoglobin 8.8 g/dL (14.0-18.0); Lymphocyte % 29.9 %; Mean Corpuscular HGB Conc 36 g/dL (31-36); Mean Corpuscular Hemoglobin 34 pg (27-31); Mean Corpuscular Volume 95 fL (80-94); Mean Platelet Volume 7.2 fL (7.4-10.4); Nucleated Red Blood Cells % 0.2; Platelet Count 125 10^3/uL (150-450); Red Blood Count 2.61 10^6 /uL (4.18-5.48); Red Cell Distribution Width 18 % (10-15); White Blood Count 2.6 10^3/uL (3.5-10.8)
[2019-03-11] MEDS: Pantoprazole IV* 40 MG IV SCH ×2 (09:35→20:14)
[2019-03-11] MEDS: Atorvastatin* 80 MG TAB PO SCH (09:35)
[2019-03-11] MEDS: Furosemide TAB* 40 MG PO SCH (09:36)
[2019-03-11] MEDS: Ferrous Sulfate TAB* 325 MG PO SCH ×2 (09:36→20:11)
[2019-03-11] MEDS: Magnesium Oxide TAB* 400 MG PO SCH (09:36)
[2019-03-11] MEDS: Aspirin EC TAB* 81 MG TAB.EC PO SCH (09:36)
[2019-03-11] MEDS: Nadolol TAB* 40 MG PO SCH (09:36)
[2019-03-11] MEDS: RiFAXimin* 550 MG TAB PO SCH ×3 (09:36→20:11)
[2019-03-11] MEDS: PTO: Azelastine 0.1% Nasal (NF) 30 ML BTL BOTH NARES SCH ×2 (09:37→20:13)
--- NOTE | 2019-03-11 09:49 | PN ---
Subjective Date of Service: 03/11/19 Interval History: Pt is feeling "foggy". Had 2 loose BM's last night Objective Active Medications: Aspirin (Aspirin Ec Tab*) 81 mg PO DAILY [facility] Last Admin: 03/11/19 09:36 Dose: 81 mg Atorvastatin Calcium (Lipitor*) 80 mg PO DAILY [facility] Last Admin: 03/11/19 09:35 Dose: 80 mg Azelastine HCl (Astepro 0.1% Nasal (Nf)) 1 spray BOTH NARES BID ON [facility] Last Admin: 03/11/19 09:37 Dose: 1 spray Ferrous Sulfate (Ferrous Sulfate Tab*) 325 mg PO BID [facility] Last Admin: 03/11/19 09:36 Dose: 325 mg Furosemide (Lasix Tab*) 40 mg PO DAILY [facility] Last Admin: 03/11/19 09:36 Dose: 40 mg Lactulose (Lactulose*) 45 ml PO QID ON [facility] Last Admin: 03/11/19 09:35 Dose: 45 ml Magnesium Oxide (Magox 400 Tab*) 400 mg PO DAILY [facility] Last Admin: 03/11/19 09:36 Dose: 400 mg Nadolol (Corgard Tab*) 20 mg PO DAILY [facility] Last Admin: 03/11/19 09:36 Dose: 20 mg Ondansetron HCl (Zofran Inj*) 4 mg IV Q4H PRN PRN Reason: NAUSEA/VOMITING Last Admin: 03/10/19 17:27 Dose: 4 mg Pantoprazole Sodium (Protonix Iv*) 40 mg IV 0900,2100 [facility] Last Admin: 03/11/19 09:35 Dose: 40 mg Rifaximin (Xifaxan*) 550 mg PO BID ON [facility] Last Admin: 03/11/19 09:36 Dose: 550 mg Spironolactone (Aldactone Tab*) 50 mg PO QPM ON [facility] Last Admin: 03/10/19 16:11 Dose: 50 mg Tamsulosin HCl (Flomax Cap*) 0.4 mg PO BEDTIME ON [facility] Last Admin: 03/10/19 21:07 Dose: 0.4 mg Vital Signs - 8 hr 03/11/19 03/11/19 04:05 07:05 Temperature 97.3 F 98 F Pulse Rate 78 69 Respiratory 17 16 Rate Blood Pressure 93/35 95/32 (mmHg) O2 Sat by Pulse 100 100 Oximetry Oxygen Devices in Use Now: None Appearance: 79 yo m in nAD, AAOx3, but slow to respond,encephalopathic Eyes: No Scleral Icterus, PERRLA Ears/Nose/Mouth/Throat: NL Teeth, Lips, Gums, Mucous Membranes Moist Neck: NL Appearance and Movements; NL JVP, Trachea Midline Respiratory: Symmetrical Chest Expansion and Respiratory Effort, Clear to Auscultation Cardiovascular: NL Sounds; No Murmurs; No JVD Abdominal: NL Sounds; No Tenderness; No Distention, - - mild, soft ascites Lymphatic: No Cervical Adenopathy Extremities: No Clubbing, Cyanosis, - - trace pedal edema b/l Skin: No Nodules or Sclerosis Neurological: Alert and Oriented x 3, NL Muscle Strength and Tone Result Diagrams: 03/11/19 05:11 03/10/19 05:21 Microbiology and Other Data: Microbiology 03/05/19 13:25 Nasal Screen MRSA (PCR) - Final Nasal Mrsa Not Detected Assess/Plan/Problems-Billing Assessment: 79 yo M h/o cryptogenic cirrhosis s/p TIPS, h/o hepatic encephalopathy, CAD s/p multiple stents in February 2018 complicated by GIB s/p polypectomy with continued bleeding and subsequent discontinuation of plavix, DVT s/p IVC filter, 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 Unsure if any increase in Lactulose beyond 45 ml QID will make a difference. cont Rifaximin Placed a call to GI for advice. stool occult positive was likely the cause of increased ammonia initially, but today pt's Hb actually increased from prior. GI-Dr. Campo's consult appreciated: pt had multiple polyps in the past as well as portal gastropathy cont Protonix IV BID. stool is brown and loose with no gross evidence of blood or melena (2) Cryptogenic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 liver Comment: had had extensive w/u in the past -follows with dr Garcia s/p TIPS 02/2018 ans TIPS revision 03/2018 , under the care of Dr. Looney (GI/ hepatology from [place]) has had liver biopsies in past CATALINO neg in past (3) Anemia Comment: Pancytopenia D/w Heme/Onc Pt follows with dr Guillen as outpatient. On Epogen-dose given Receives Iron infusions as outpatient and on po iron Had bone marrow biopsy in 2017 poss smoldering myeloma/ monoclonal gammopathy Transfused 1 U PRBC as per d/w DR. Guillen on 03/07/19 with appropiate raise on Hb (4) CAD (coronary artery disease) Comment: cont aspirin did not tolerate plavix/ brylinta in past with bleeding and has been on aspirin drug eluting stents within 1 year per d/w pt per d/w GI has had extensive discussion about this with cardiology in the past (5) Chronic renal disease, stage 4, severely decreased glomerular filtration rate (GFR) between 15-29 mL/min/1.73 square meter Comment: creat at baseline (6) DVT (deep venous thrombosis) Comment: s/p ivc filter placement SCD's Heparin d/c due to GI bleed Status and Disposition: inpatient
[2019-03-11] MEDS: Zinc Sulfate CAP* 220 MG PO SCH ×2 (14:06→20:11)
[2019-03-11] MEDS: Spironolactone TAB* 25 MG PO SCH (18:02)
[2019-03-11] MEDS: Tamsulosin CAP* 0.4 MG PO SCH (20:11)
--- NOTE | 2019-03-11 20:27 | PN ---
Progress Note - Progress Note Date of Service: 03/11/19 Note: pt well known to me; Cryptogenic cirrhosis, current MELD of 16; admitted with near refractory encephalopathy; on lactulose QID, no evidence for bleeding or infection; lethargic, no pain, no blood in stool VS: stable gen: lethargic, alert, falls asleep easily, stares off abd: +bs, soft neuro: +asterixis labs: hgb 8.8, plts 125, INR 1.13, BUN 24, Cr 2.32, ammonia 190,, MELD 16 Refractory encephalopathy ----don't think increasing lactulose with help; having 3-4 loose bms per day; will increase xifaxan to TID, add Zinc; i did discuss with Dr Looney, pt's etiologist at [facility]; not much else to offer other than Sodium Benzoate, per [facility], unable to get here; other option is to occlude TIPSS, but increase risk for ascites, increase portal htn, very difficult situation, pt and weighing options, hope increased xifaxan and zinc help GI to follow Isaac Ruiz MD [facility] [phone]
[2019-03-12] MEDS ORDERED: Lactulose 300 ML for PR* 10 GM/15 ML BTL PR SCH (09:00)
--- NOTE | 2019-03-12 09:50 | PN ---
Subjective Date of Service: 03/12/19 Interval History: Pt is confuse, lethargic, mumbling. crying by the bedside, very upset. Agrees with transfer to ICU to do "everything what possible". Pt is seen with , brother and RN. Family aware of dire situation and that pt 's encephalopathy persists despite maximum treatment. They are not ready for comfort care. Objective Active Medications: Aspirin (Aspirin Ec Tab*) 81 mg PO DAILY [facility] Last Admin: 03/11/19 09:36 Dose: 81 mg Atorvastatin Calcium (Lipitor*) 80 mg PO DAILY [facility] Last Admin: 03/11/19 09:35 Dose: 80 mg Azelastine HCl (Astepro 0.1% Nasal (Nf)) 1 spray BOTH NARES BID [facility] Last Admin: 03/11/19 20:13 Dose: 1 spray Famotidine (Pepcid Iv*) 20 mg IV SLOW PU DAILY [facility] Ferrous Sulfate (Ferrous Sulfate Tab*) 325 mg PO BID [facility] Last Admin: 03/11/19 20:11 Dose: 325 mg Furosemide (Lasix Tab*) 40 mg PO DAILY [facility] Last Admin: 03/11/19 09:36 Dose: 40 mg Lactated Ringer's (Lactated Ringers 1000 Ml Bag*) 1,000 mls @ 75 mls/hr IV PER RATE [facility] Lactulose (Lactulose*) 45 ml NG TUBE QID [facility] Magnesium Oxide (Magox 400 Tab*) 400 mg PO DAILY [facility] Last Admin: 03/11/19 09:36 Dose: 400 mg Nadolol (Corgard Tab*) 20 mg PO DAILY [facility] Last Admin: 03/11/19 09:36 Dose: 20 mg Ondansetron HCl (Zofran Inj*) 4 mg IV Q4H PRN PRN Reason: NAUSEA/VOMITING Last Admin: 03/10/19 17:27 Dose: 4 mg Pantoprazole Sodium (Protonix Iv*) 40 mg IV 0900,2100 [facility] Last Admin: 03/11/19 20:14 Dose: 40 mg Rifaximin (Xifaxan*) 550 mg PO TID [facility] Last Admin: 03/11/19 20:11 Dose: 550 mg Spironolactone (Aldactone Tab*) 50 mg PO QPM [facility] Last Admin: 03/11/19 18:02 Dose: 50 mg Tamsulosin HCl (Flomax Cap*) 0.4 mg PO BEDTIME [facility] Last Admin: 03/11/19 20:11 Dose: 0.4 mg Zinc Sulfate (Zinc-220 Cap*) 220 mg PO BID [facility] Last Admin: 03/11/19 20:11 Dose: 220 mg Vital Signs - 8 hr 03/12/19 02:23 Pulse Rate 70 Respiratory 18 Rate Blood Pressure 114/55 (mmHg) O2 Sat by Pulse 100 Oximetry Oxygen Devices in Use Now: None Appearance: 79 yo M in nAD, mumbling to himself, not following commands, trying to get OOB Eyes: No Scleral Icterus, PERRLA Ears/Nose/Mouth/Throat: NL Teeth, Lips, Gums, Mucous Membranes Moist Neck: NL Appearance and Movements; NL JVP, Trachea Midline Respiratory: Symmetrical Chest Expansion and Respiratory Effort, Clear to Auscultation Cardiovascular: NL Sounds; No Murmurs; No JVD, RRR Abdominal: - - soft, mild ascites noted Lymphatic: No Cervical Adenopathy Extremities: No Edema, No Clubbing, Cyanosis Skin: No Rash or Ulcers, No Nodules or Sclerosis Neurological: NL Muscle Strength and Tone Result Diagrams: 03/11/19 05:11 03/10/19 05:21 Microbiology and Other Data: Microbiology 03/05/19 13:25 Nasal Screen MRSA (PCR) - Final Nasal Mrsa Not Detected Assess/Plan/Problems-Billing Assessment: 79 yo M h/o cryptogenic cirrhosis s/p TIPS, h/o hepatic encephalopathy, CAD s/p multiple stents in February 2018 complicated by GIB s/p polypectomy with continued bleeding and subsequent discontinuation of plavix, DVT s/p IVC filter, 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 =agrees to NG placement and tx with lactuloze via NG. Ad per GI increase in Lactulose beyond 45 ml QID will not make a difference. cont Rifaximin TID Placed a call to GI to make the service aware. (2) GI bleed Comment: - GI consulted h/o polyps and likely portal gastropathy. Stool heme +, but no melena or BRBPR . -cont PPI IV BID (3) Cryptogenic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 liver Comment: had had extensive w/u in the past -follows with dr Garcia s/p TIPS 02/2018 ans TIPS revision 03/2018 , under the care of Dr. Looney (GI/ hepatology from [place]). Unfortunatley after TIPS in 2018 his probelms with encephalopathy started has had liver biopsies in past CATALINO neg in past (4) Anemia Comment: Pancytopenia D/w Heme/Onc Pt follows with dr Guillen as outpatient. On Epogen-dose given Receives Iron infusions as outpatient and on po iron Had bone marrow biopsy in 2017 poss smoldering myeloma/ monoclonal gammopathy Transfused 1 U PRBC as per d/w DR. Guillen on 03/07/19 with appropiate raise on Hb (5) CAD (coronary artery disease) Comment: cont aspirin did not tolerate plavix/ brylinta in past with bleeding and has been on aspirin drug eluting stents within 1 year per d/w pt per d/w GI has had extensive discussion about this with cardiology in the past (6) Chronic renal disease, stage 4, severely decreased glomerular filtration rate (GFR) between 15-29 mL/min/1.73 square meter Comment: creat at baseline (7) DVT (deep venous thrombosis) Comment: s/p ivc filter placement SCD's Heparin d/c due to GI bleed Status and Disposition: inpatient
[2019-03-12] MEDS ORDERED: Lactated Ringers 1000 ML Bag* 1,000 ML IV SCH (10:00)
[2019-03-12] MEDS: Aspirin EC TAB* 81 MG TAB.EC PO SCH (10:19)
[2019-03-12 10:33] LABS: Hematocrit 25 % (42-52); Hemoglobin 8.5 g/dL (14.0-18.0)
[2019-03-12] MEDS ORDERED: Lorazepam PYXIS KEY ONE (11:13)
--- NOTE | 2019-03-12 11:23 | PN ---
Date of Service: 03/12/19 Critical Care Services: patient transferred to ICU for confusion. Daughter and (step-mom) at bedside. patient has recurrent transfers to ICU for confusion. Ammonia as high as 331 today Patient on chronic Lactulose and Rifaximin. s/p TIPS revision 03/2018 Vital Signs: Temp Pulse Resp BP SpO2 FiO2 97.3 F 67 13 120/57 99 03/12/19 10:10 03/12/19 10:10 03/12/19 10:10 03/12/19 10:10 03/12/19 10:10 Physical Exam: Gen: Confused. Restless. Does not follow but calm. HEENT:NGT in place. some bleeding from site Lungs:CTA B.L Cardiac: RRR Abdomen:Obese, + BS's, soft, NTP. No rebound or guarding Extremities: Mild REY Neuro:No evident focal [employer]IST deficits Fluid Balance (Past 24 Hours): I= O= Net Intake & Output 03/10/19 03/11/19 03/12/19 03/13/19 06:59 06:59 06:59 06:59 Intake Total 837 1795 1670 Output Total 400 700 Balance 437 1095 1670 Intake: IV Fluids 267 sodium bicarb 267 Oral 570 1795 1670 Output: Urine 400 700 Other: Estimated Void Medium Date of Last Bowel 03/09/09 Movement # Bowel Movements 0 0 1 Estimated Stool Amount Small Medium Small # Voids 1 0 1 Labs: Laboratory Results - last 24 hr 03/12/19 03/12/19 03/12/19 02:44 10:22 10:22 Hgb 8.5 L Hct 25 L Ammonia 331 H 184 H Impression: Refractory Hepatic Encephalitis ESLD Anemia Mild pancytopenia Plan: Continue TID Lactulose and titrate if patient without BM's Continue Xifaxan Zinc already added will monitor in ICU Patient full code. However, had d/w (proxy) and daughter. Daughter, feels he may not want such aggressive measures now. However, wants to not change code status till he "wakes up." When encephalopathy improves GOC discussion should be made with family. Critical Care Time: 45
[2019-03-12] MEDS: PTO: Azelastine 0.1% Nasal (NF) 30 ML BTL BOTH NARES SCH ×2 (11:27→20:53)
[2019-03-12] MEDS: Atorvastatin* 80 MG TAB PO SCH (11:36)
[2019-03-12] MEDS: Furosemide TAB* 40 MG PO SCH (11:36)
[2019-03-12] MEDS: Ferrous Sulfate TAB* 325 MG PO SCH ×2 (11:36→20:54)
[2019-03-12] MEDS: Magnesium Oxide TAB* 400 MG PO SCH (11:36)
[2019-03-12] MEDS: Nadolol TAB* 40 MG PO SCH (11:37)
[2019-03-12] MEDS: RiFAXimin* 550 MG TAB PO SCH ×3 (11:37→20:54)
[2019-03-12] MEDS: Zinc Sulfate CAP* 220 MG PO SCH ×2 (11:37→20:54)
[2019-03-12] MEDS: Pantoprazole IV* 40 MG IV SCH ×2 (11:48→20:54)
[2019-03-12] MEDS: Spironolactone TAB* 25 MG PO SCH (18:00)
[2019-03-12] MEDS: Tamsulosin CAP* 0.4 MG PO SCH (20:54)
[2019-03-12] MEDS ORDERED: Famotidine IV* 10 MG/ML 2 ML (20 mg) IV SLOW PU SCH (21:00)
[2019-03-13] MEDS ORDERED: Famotidine IV* 10 MG/ML 2 ML (20 mg) IV SLOW PU SCH (09:00)
--- NOTE | 2019-03-13 09:53 | PN ---
Subjective Date of Service: 03/13/19 Interval History: Pt's encephalopathy is resolving, he is AAOx3, still feels tired. C/o "sore throat" due to NG tube Objective Active Medications: Aspirin (Aspirin Ec Tab*) 81 mg PO DAILY [facility] Last Admin: 03/12/19 10:19 Dose: Not Given Atorvastatin Calcium (Lipitor*) 80 mg PO DAILY [facility] Last Admin: 03/12/19 11:36 Dose: 80 mg Azelastine HCl (Astepro 0.1% Nasal (Nf)) 1 spray BOTH NARES BID [facility] Last Admin: 03/12/19 20:53 Dose: 1 spray Ferrous Sulfate (Ferrous Sulfate Tab*) 325 mg PO BID [facility] Last Admin: 03/12/19 20:54 Dose: 325 mg Furosemide (Lasix Tab*) 40 mg PO DAILY [facility] Last Admin: 03/12/19 11:36 Dose: 40 mg Lactated Ringer's (Lactated Ringers 1000 Ml Bag*) 1,000 mls @ 75 mls/hr IV PER RATE [facility] Last Admin: 03/12/19 10:24 Dose: 75 mls/hr Lactulose (Lactulose*) 45 ml NG TUBE QID [facility] Last Admin: 03/12/19 20:48 Dose: 45 ml Magnesium Oxide (Magox 400 Tab*) 400 mg PO DAILY [facility] Last Admin: 03/12/19 11:36 Dose: 400 mg Nadolol (Corgard Tab*) 20 mg PO DAILY [facility] Last Admin: 03/12/19 11:37 Dose: 20 mg Ondansetron HCl (Zofran Inj*) 4 mg IV Q4H PRN PRN Reason: NAUSEA/VOMITING Last Admin: 03/10/19 17:27 Dose: 4 mg Pantoprazole Sodium (Protonix Iv*) 40 mg IV 0900,2100 [facility] Last Admin: 03/12/19 20:54 Dose: 40 mg Rifaximin (Xifaxan*) 550 mg PO TID [facility] Last Admin: 03/12/19 20:54 Dose: 550 mg Spironolactone (Aldactone Tab*) 50 mg PO QPM [facility] Last Admin: 03/12/19 18:00 Dose: 50 mg Tamsulosin HCl (Flomax Cap*) 0.4 mg PO BEDTIME [facility] Last Admin: 03/12/19 20:54 Dose: 0.4 mg Zinc Sulfate (Zinc-220 Cap*) 220 mg PO BID [facility] Last Admin: 03/12/19 20:54 Dose: 220 mg Vital Signs - 8 hr 03/13/19 03/13/19 03/13/19 02:00 03:00 03:36 Temperature 97.7 F Pulse Rate 56 60 Respiratory 13 11 Rate Blood Pressure (mmHg) O2 Sat by Pulse 97 96 Oximetry 03/13/19 03/13/19 03/13/19 04:00 05:00 05:23 Temperature Pulse Rate 50 51 58 Respiratory 13 12 12 Rate Blood Pressure 93/41 117/52 (mmHg) O2 Sat by Pulse 97 97 96 Oximetry 03/13/19 07:50 Temperature 97.8 F Pulse Rate Respiratory Rate Blood Pressure (mmHg) O2 Sat by Pulse Oximetry Oxygen Devices in Use Now: None Appearance: 79 yo M in nAD, AAOx3 Eyes: No Scleral Icterus, PERRLA Ears/Nose/Mouth/Throat: NL Teeth, Lips, Gums, Mucous Membranes Moist Neck: NL Appearance and Movements; NL JVP, Trachea Midline Respiratory: Symmetrical Chest Expansion and Respiratory Effort, Clear to Auscultation Cardiovascular: NL Sounds; No Murmurs; No JVD, RRR Abdominal: NL Sounds; No Tenderness; No Distention, - - mild ascites, soft, NT Lymphatic: No Cervical Adenopathy Extremities: No Edema, No Clubbing, Cyanosis Skin: No Rash or Ulcers, No Nodules or Sclerosis Neurological: Alert and Oriented x 3, NL Muscle Strength and Tone Result Diagrams: 03/12/19 10:22 03/10/19 05:21 Microbiology and Other Data: Microbiology 03/05/19 13:25 Nasal Screen MRSA (PCR) - Final Nasal Mrsa Not Detected Assess/Plan/Problems-Billing Assessment: 79 yo M h/o cryptogenic cirrhosis s/p TIPS, h/o hepatic encephalopathy, CAD s/p multiple stents in February 2018 complicated by GIB s/p polypectomy with continued bleeding and subsequent discontinuation of plavix, DVT s/p IVC filter, 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 will cont NG for now . Had an extensive conversation with pt's and son who request a transfer to a tertiary care center foir evaluation for a poss TIPS reversal. Lactulose bcont 45 ml QID cont Rifaximin TID (2) GI bleed Comment: - GI consulted h/o polyps and likely portal gastropathy. Stool heme +, but no melena or BRBPR . -cont PPI IV BID (3) Cryptogenic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 liver Comment: had had extensive w/u in the past -follows with dr Garcia s/p TIPS 02/2018 ans TIPS revision 03/2018 , under the care of Dr. Looney (GI/ hepatology from [place]). Unfortunatley after TIPS in 2018 his probelms with encephalopathy started has had liver biopsies in past CATALINO neg in past (4) Anemia Comment: Pancytopenia D/w Heme/Onc Pt follows with dr Guillen as outpatient. On Epogen-dose given Receives Iron infusions as outpatient and on po iron Had bone marrow biopsy in 2017 poss smoldering myeloma/ monoclonal gammopathy Transfused 1 U PRBC as per d/w DR. Guillen on 03/07/19 with appropiate raise on Hb (5) CAD (coronary artery disease) Comment: cont aspirin did not tolerate plavix/ brylinta in past with bleeding and has been on aspirin drug eluting stents within 1 year per d/w pt per d/w GI has had extensive discussion about this with cardiology in the past (6) Chronic renal disease, stage 4, severely decreased glomerular filtration rate (GFR) between 15-29 mL/min/1.73 square meter Comment: creat at baseline (7) DVT (deep venous thrombosis) Comment: s/p ivc filter placement SCD's Heparin d/c due to GI bleed Status and Disposition: inpatient
--- NOTE | 2019-03-13 09:56 | PN ---
Date of Service: 03/13/19 Critical Care Services: patient AO times 3 since last night. no longer confused or somnolent. slept well. at the bedside. pending transfer to [place] for TIPS reversal Vital Signs: Temp Pulse Resp BP SpO2 FiO2 97.8 F 58 12 117/52 96 03/13/19 07:50 03/13/19 05:23 03/13/19 05:23 03/13/19 05:23 03/13/19 05:23 Physical Exam: Gen: AO times 3 HEENT: EOMI Lungs: CTA B/L Cardiac: RRR Abdomen: + BS's, soft, NTP. No rebound or guarding Extremities: No REY Neuro: No focal deficits Fluid Balance (Past 24 Hours): I= O= Net Intake & Output 03/11/19 03/12/19 03/13/19 03/14/19 06:59 06:59 06:59 06:59 Intake Total 1795 1670 919 Output Total 700 1040 Balance 1095 1670 -121 Intake: IV Fluids 859 LR 859 Oral 1795 1670 0 NG Tube Irrigate Amount 60 Output: Urine 700 1040 Other: Estimated Void Medium Large Date of Last Bowel 03/12/19 Movement # Bowel Movements 0 1 1 Estimated Stool Amount Medium Small Medium # Voids 0 1 1 Labs: Laboratory Results - last 24 hr 03/12/19 03/12/19 10:22 10:22 Hgb 8.5 L Hct 25 L Ammonia 184 H Impression: Recurrent hepatic encephalopathy and TIPS ESLD Anemia Mild pancytopenia Plan: Contiue Lactulose and Xafaxan therapy as well as Zinc Transfer as per primary team for reversal TIPs Patient transferred back to Medicine service as no acute critical care issues presently Critical Care Time: 36
[2019-03-13] MEDS: PTO: Azelastine 0.1% Nasal (NF) 30 ML BTL BOTH NARES SCH ×2 (10:28→21:45)
[2019-03-13] MEDS: Magnesium Oxide TAB* 400 MG PO SCH (10:28)
[2019-03-13] MEDS: Furosemide TAB* 40 MG PO SCH (10:28)
[2019-03-13] MEDS: Atorvastatin* 80 MG TAB PO SCH (10:28)
[2019-03-13] MEDS: Ferrous Sulfate TAB* 325 MG PO SCH ×2 (10:28→21:46)
[2019-03-13] MEDS: Zinc Sulfate CAP* 220 MG PO SCH ×2 (10:28→21:46)
[2019-03-13] MEDS: RiFAXimin* 550 MG TAB PO SCH ×3 (10:28→21:46)
[2019-03-13] MEDS: Nadolol TAB* 40 MG PO SCH (10:28)
[2019-03-13] MEDS: Pantoprazole IV* 40 MG IV SCH ×2 (10:31→21:47)
[2019-03-13] MEDS: Aspirin EC TAB* 81 MG TAB.EC PO SCH (12:25)
[2019-03-13 12:50] LABS: ABS Eosinophils 0.1 10^3/ul (0-0.6); ABS Lymphocytes 0.6 10^3/ul (1.0-4.8); ABS Monocytes 0.3 10^3/ul (0-0.8); ABS Neutrophils 1.8 10^3/ul (1.5-7.7); Eosinophil % 3.6 %; Hematocrit 22 % (42-52); Hemoglobin 7.7 g/dL (14.0-18.0); Mean Corpuscular HGB Conc 34 g/dL (31-36); Mean Corpuscular Hemoglobin 33 pg (27-31); Mean Corpuscular Volume 95 fL (80-94); Mean Platelet Volume 7.4 fL (7.4-10.4); Nucleated Red Blood Cells % 0.2; Platelet Count 118 10^3/uL (150-450); Red Blood Count 2.36 10^6 /uL (4.18-5.48); Red Cell Distribution Width 17 % (10-15); White Blood Count 2.9 10^3/uL (3.5-10.8)
[2019-03-13 12:52] LABS: INR 1.1 (0.82-1.09)
[2019-03-13 13:01] LABS: Albumin 1.7 g/dL (3.2-5.2); Albumin/Globulin Ratio 0.5 (1-3); BUN/Creatinine Ratio 10.3 (8-20); Calcium 7.9 mg/dL (8.6-10.3); EGFR African American 32.9 (>60); EGFR Non-African American 27.2 (>60); Globulin 3.3 g/dL (2-4); Total Bilirubin 0.9 mg/dL (0.2-1.0)
[2019-03-13] MEDS ORDERED: Lactated Ringers 1000 ML Bag* 1,000 ML IV SCH (14:50)
[2019-03-13] MEDS: Spironolactone TAB* 25 MG PO SCH (17:07)
--- NOTE | 2019-03-13 21:44 | TRS ---
CC: Dr. Johnston; Dr. Guillen; Dr. Olmedo; Dr. Schultz; Dr. Hamlin; Dr. Ruiz; Dr. Campo; Dr. Looney, [facility]; Dr. Perales, [facility] * TRANSFER SUMMARY: DATE OF ADMISSION: 03/05/19 DATE OF ANTICIPATED TRANSFER: To [facility], 03/14/19. I do not have an accepting physician name yet as the patient is going to be placed likely in a step-down intensive care unit. REASON FOR TRANSFER: Recurrent severe hepatic encephalopathy. The patient is considering and wants to be evaluated for reversal of TIPS procedure. SECONDARY DIAGNOSES: 1. Cryptogenic liver cirrhosis. 2. History of recurrent ascites, status post TIPS procedure in February 2018 and TIPS was expanded on 04/26/18 at [facility] by Dr. Perales. Please also note that Dr. Looney is the patient's package sealer machine from [facility], Dr. Ruiz is the patient's mailing machine operator at [facility]. 3. History of gastrointestinal bleeding secondary to portal hypertensive gastropathy in September 2017. 4. History of recurrent gastrointestinal bleeding in the summer of 2017 due to colon polyps. 5. History of carotid disease, status post most recent stenting in early 2017 which was a bare metal stent and an acute myocardial infarction in February 2018 with in-stent restenosis and 3 more stents placed at this point at [facility] in [place]. 6. History of recurrent gastrointestinal bleed secondary to large polyps in the small bowel, removed in [place] in May 2018. 7. History of pacemaker placement in the past. 8. History of obstructive sleep apnea, on CPAP. 9. History of anemia with iron infusions and multiple packed red blood cell transfusions in the past under the care of Dr. Guillen. 10. History of monoclonal gammopathy, under the care of Dr. Guillen. 11. History of deep vein thrombosis, status post IVC filter placement in the past. 12. History of laparoscopic cholecystectomy. 13. History of recurrent hepatic encephalopathy. Please note that the patient' s ammonia levels do not clearly correspond with the patient's encephalopathy. The patient is known to have baseline ammonia level over 100 with normal mentation. 14. History of anemia with multiple transfusions. The patient received 1 unit of packed red blood cells during the current hospital stay, but he has a history of a total of 46 units transfused ever since September 2017. CONSULTATION DURING THE HOSPITAL STAY: Included Dr. Schultz and Dr. Hamlin from ICU, Dr. Ruiz and Dr. Campo from Gastroenterology. DIAGNOSTIC STUDIES/LAB DATA: Most recent laboratory data obtained on 03/13/19 showed white blood cell count of 2.9, hemoglobin of 7.7, hematocrit of 22, MCV of 95, and platelets of 118. The patient's INR is 1.1. Sodium of 134, potassium 4.0, chloride 109, carbon dioxide 20, BUN 24, creatinine 2.34, albumin 1.7, total protein of 5.0, ammonia of 184 noted on . Urinalysis was unremarkable on admission. The patient's stool was heme positive on 03/08/19. ABG obtained on 03/05/19, pH of 7.42, pCO2 of 29, pO2 of 95, bicarb of 21.5. Most recent portable chest x-ray obtained on 03/12/19, impression: "Enteric tube tip terminates in the expected region of gastric body. Interval obscuring of left diaphragm, this could be related to atelectasis or infiltrate. Unchanged cardiac silhouette with left chest wall pacemaker in place, status post TIPS and cholecystectomy." Brain CT obtained on admission, impression: "Limited posterior fossa due to motion artifact. No definite intracranial mass or hemorrhage is noted." HOSPITALIZATION COURSE: Mr. Ashford is an unfortunate 79-year-old male who was diagnosed with cryptogenic liver cirrhosis sometime in the year 2017. The patient was evaluated at [facility] by Dr. Looney. The patient also was seen in [facility] for a second opinion. Over the course of the year of 2017 and 2018, the patient developed severe ascites and required multiple paracentesis. Due to that, the patient developed portal gastropathy with GI bleeding. A TIPS procedure was performed at [facility] by Dr. Perales in mid of 2018. Apparently, the TIPS had to be revised approximately a month later. Ever since then, the patient has had recurrent problems with anemia and GI bleed. He had received multiple transfusions and iron infusions through his oncologist and associate sales representative, Dr. Guillen. He also was noted to be admitted several times for hepatic encephalopathy. On 03/05/19, he was admitted to the intensive care unit for marked encephalopathy with ammonia level of 285. He received lactulose, which was increased and he markedly improved within basically 24 hours. He was transferred out of the intensive care unit to the medical floor and within 24 hours his ammonia was back to 327. He needed to be transferred once again to the intensive care unit on 03/08/19 in the food and beverage analyst. He received lactulose enemas at that point and his ammonia went down to 95 and 174 subsequently. Once again, he was transferred out of the intensive care unit to the medical floor, continued to take his lactulose at an increased dose of 45 mL 4 times a day with increased rifaximin 550 mg 3 times a day as per Dr. Ruiz's and Dr. Campo's recommendations, and despite that, from time to time , he would feel that he is not having enough bowel movements as expected on his lactulose treatment. Once again, he developed hepatic encephalopathy. He needed to be transferred to the intensive care unit on 03/12/19 with ammonia level of 331. At this point, extensive discussions were carried between Dr. Ruiz and Dr. Looney from hepatology department at [facility] as well as myself and Dr. Campo from gastroenterology department here. It appears that the patient's encephalopathy is not improving and is not controlled with optimal management. The patient also was placed on p.o. zinc with no improvement. At this point, the patient's family requested transfer to a tertiary care center for further evaluation of possibility of other options. They are considering TIPS reversal. I spoke with the package sealer machine at [facility] on 03/13/19, who requested for the medicine service to accept the patient. The patient is planned to be accepted to a stepdown unit at [facility], but so far they do not have beds. It is possible that [facility] will have a bed on 03/14/19. This dictation is an interim transfer/discharge summary of this patient's prolonged and complicated hospitalization. Please see remaining medical records for details. [id number]/[facility] #: [id number] [facility]
[2019-03-13] MEDS: Tamsulosin CAP* 0.4 MG PO SCH (21:46)
[2019-03-13] MEDS: Ondansetron INJ* 2 MG/ML VIAL IV PRN (23:19)
[2019-03-14 05:24] LABS: ABS Eosinophils 0.1 10^3/ul (0-0.6); ABS Lymphocytes 0.9 10^3/ul (1.0-4.8); ABS Monocytes 0.3 10^3/ul (0-0.8); ABS Neutrophils 1.9 10^3/ul (1.5-7.7); Eosinophil % 3.4 %; Hematocrit 21 % (42-52); Hemoglobin 7.6 g/dL (14.0-18.0); Lymphocyte % 27.7 %; Mean Corpuscular HGB Conc 36 g/dL (31-36); Mean Corpuscular Hemoglobin 33 pg (27-31); Mean Corpuscular Volume 93 fL (80-94); Mean Platelet Volume 6.8 fL (7.4-10.4); Nucleated Red Blood Cells % 0.1; Platelet Count 134 10^3/uL (150-450); Red Cell Distribution Width 17 % (10-15); White Blood Count 3.2 10^3/uL (3.5-10.8)
[2019-03-14 05:51] LABS: BUN/Creatinine Ratio 10.2 (8-20); Calcium 7.5 mg/dL (8.6-10.3); EGFR African American 32.5 (>60); EGFR Non-African American 26.9 (>60); Potassium 4.6 mmol/L (3.5-5.0)
[2019-03-14] MEDS: Zinc Sulfate CAP* 220 MG PO SCH ×2 (09:38→20:40)
[2019-03-14] MEDS: Ferrous Sulfate TAB* 325 MG PO SCH ×2 (09:38→20:39)
[2019-03-14] MEDS: Magnesium Oxide TAB* 400 MG PO SCH (09:38)
[2019-03-14] MEDS: Atorvastatin* 80 MG TAB PO SCH (09:38)
[2019-03-14] MEDS: Aspirin EC TAB* 81 MG TAB.EC PO SCH (09:39)
[2019-03-14] MEDS: RiFAXimin* 550 MG TAB PO SCH ×3 (09:39→20:40)
[2019-03-14] MEDS: Pantoprazole IV* 40 MG IV SCH ×2 (09:40→20:42)
[2019-03-14] MEDS: PTO: Azelastine 0.1% Nasal (NF) 30 ML BTL BOTH NARES SCH ×2 (09:41→20:38)
[2019-03-14] MEDS: Nadolol TAB* 40 MG PO SCH (10:03)
[2019-03-14] MEDS: Furosemide TAB* 40 MG PO SCH (10:03)
--- NOTE | 2019-03-14 15:44 | PN ---
Subjective Date of Service: 03/14/19 Interval History: Bernardo is feeling poorly. He is sleepy. His notes he is more sleepy today than yesterday. He has not had a BM yet. He denies any pain. No SOB. Objective Active Medications: Aspirin (Aspirin Ec Tab*) 81 mg PO DAILY [facility] Last Admin: 03/14/19 09:39 Dose: 81 mg Atorvastatin Calcium (Lipitor*) 80 mg PO DAILY [facility] Last Admin: 03/14/19 09:38 Dose: 80 mg Azelastine HCl (Astepro 0.1% Nasal (Nf)) 1 spray BOTH NARES BID [facility] Last Admin: 03/14/19 09:41 Dose: 1 spray Ferrous Sulfate (Ferrous Sulfate Tab*) 325 mg PO BID [facility] Last Admin: 03/14/19 09:38 Dose: 325 mg Furosemide (Lasix Tab*) 40 mg PO DAILY [facility] Last Admin: 03/14/19 10:03 Dose: Not Given Lactulose (Lactulose*) 45 ml PO QID [facility] Last Admin: 03/14/19 13:11 Dose: 45 ml Lactulose (Lactulose*) 45 ml PO ONCE ONE Stop: 03/14/19 15:40 Magnesium Oxide (Magox 400 Tab*) 400 mg PO DAILY [facility] Last Admin: 03/14/19 09:38 Dose: 400 mg Nadolol (Corgard Tab*) 20 mg PO DAILY [facility] Last Admin: 03/14/19 10:03 Dose: Not Given Ondansetron HCl (Zofran Inj*) 4 mg IV Q4H PRN PRN Reason: NAUSEA/VOMITING Last Admin: 03/13/19 23:19 Dose: 4 mg Pantoprazole Sodium (Protonix Iv*) 40 mg IV 0900,2100 [facility] Last Admin: 03/14/19 09:40 Dose: 40 mg Rifaximin (Xifaxan*) 550 mg PO TID [facility] Last Admin: 03/14/19 14:52 Dose: 550 mg Spironolactone (Aldactone Tab*) 50 mg PO QPM [facility] Last Admin: 03/13/19 17:07 Dose: 50 mg Tamsulosin HCl (Flomax Cap*) 0.4 mg PO BEDTIME [facility] Last Admin: 03/13/19 21:46 Dose: 0.4 mg Zinc Sulfate (Zinc-220 Cap*) 220 mg PO BID [facility] Last Admin: 03/14/19 09:38 Dose: 220 mg Vital Signs - 8 hr 03/14/19 03/14/19 08:00 15:03 Temperature 98.9 F 98.8 F Pulse Rate 84 78 Respiratory 16 16 Rate Blood Pressure 95/45 97/39 (mmHg) O2 Sat by Pulse 98 98 Oximetry Oxygen Devices in Use Now: None Appearance: Eldelry male sitting up in bed, drowsy, NAD Eyes: No Scleral Icterus Ears/Nose/Mouth/Throat: Mucous Membranes Moist Respiratory: Symmetrical Chest Expansion and Respiratory Effort, Clear to Auscultation Cardiovascular: NL Sounds; No Murmurs; No JVD, RRR, No Edema Abdominal: NL Sounds; No Tenderness; No Distention Extremities: No Clubbing, Cyanosis Skin: No Nodules or Sclerosis Neurological: - - Drowsy but arousable Result Diagrams: 03/14/19 05:14 03/14/19 05:14 Microbiology and Other Data: Microbiology 03/05/19 13:25 Nasal Screen MRSA (PCR) - Final Nasal Mrsa Not Detected Assess/Plan/Problems-Billing 79 yo M h/o cryptogenic cirrhosis s/p TIPS, hepatic encephalopathy, CAD s/p multiple stents in February 2018 complicated by GIB s/p polypectomy with continued bleeding and subsequent discontinuation of plavix, DVT s/p IVC filter , 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 - Patient Problems (1) Hepatic encephalopathy Current Visit: Yes Status: Acute Code(s): K72.90 - HEPATIC FAILURE, UNSPECIFIED WITHOUT COMA SNOMED Code(s): 53259872 Comment: Severe and recurrent. Conitnue 4x daily lactulose 45ml and rifaximin 550mg TID. Plan for transfer to [facility] when bed available. Will give additional dose of lactulose now as pt has not had a BM and is quite drowsy but still able to participate. (2) Chronic renal disease, stage 4, severely decreased glomerular filtration rate (GFR) between 15-29 mL/min/1.73 square meter Current Visit: Yes Status: Acute Priority: Medium Code(s): N18.4 - CHRONIC KIDNEY DISEASE, STAGE 4 (SEVERE) SNOMED Code(s): 724485979 Comment: Creatinine is at baseline. Monitor closely. (3) Cryptogenic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 liver Current Visit: Yes Status: Acute Code(s): K74.69 - OTHER CIRRHOSIS OF LIVER SNOMED Code(s): 81517565 Comment: s/p TIPS 02/2018 and TIPS revision 03/2018, under the care of Dr. Looney (GI/hepatology from [place]). (4) Anemia Current Visit: Yes Status: Acute Code(s): D64.9 - ANEMIA, UNSPECIFIED SNOMED Code(s): 502536311 Comment: Pt had 1 unit PRBC on 03/07, Hb has again trended down slightly but stable from yesterday. Will continue to follow intermittently. Epogen given . ? underlying smoldering myeloma vs portal hypertensive gastropathy leading to slow oozing. (5) CAD (coronary artery disease) Current Visit: Yes Status: Acute Code(s): I25.10 - ATHSCL HEART DISEASE OF [place] CORONARY ARTERY W/O ANG PCTRS SNOMED Code(s): 82900820 Comment: Pt s/p AMI with in stent restenosis 02/2018. Continue ASA, metoprolol. No c/o chest pain at this time. (6) BPH (benign prostatic hyperplasia) Current Visit: Yes Status: Acute Code(s): N40.0 - BENIGN PROSTATIC HYPERPLASIA WITHOUT LOWER URINRY TRACT SYMP SNOMED Code(s): 778917814 Comment: Continue flomax. (7) DVT prophylaxis Current Visit: Yes Status: Acute Code(s): XDZ0712 - SNOMED Code(s): 936420737 Comment: SCDs (8) Full code status Current Visit: Yes Status: Acute Code(s): Z78.9 - OTHER SPECIFIED HEALTH STATUS SNOMED Code(s): 047005002 Status and Disposition: awaiting transfer to [facility]
[2019-03-14] MEDS: Spironolactone TAB* 25 MG PO SCH (17:17)
--- NOTE | 2019-03-14 18:09 | PN ---
Progress Note - Progress Note Date of Service: 03/14/19 Note: sitting up in bed eating, brother visiting pt alert, awake, looks ok awaiting transfer to [facility] for TIPss occlusion VS; stable gen: alert, oriented x 3 neuro: mild asterixis abd: +bs, soft Hgb 7.6, plts 134, bun 24, cr 2.36 amm 257 Hepatic enceph-------unable to control with lactulose qid, zinc, xifaxan tid awaiting transfer to [facility]; agree Isaac Ruiz MD [facility]
[2019-03-14] MEDS: Tamsulosin CAP* 0.4 MG PO SCH (20:40)
--- NOTE | 2019-03-14 20:54 | TRS ---
CC: Dr. Ruiz; Dr. Johnston * TRANSFER SUMMARY: ADDENDUM TO PREVIOUS TRANSFER SUMMARY BY DR. SOLORZANO: Mr. Ashford is a 79-year-old male, who was hospitalized at [facility] on 03/05/19 for recurrent severe hepatic encephalopathy. The patient's hepatic encephalopathy has been unable to be treated conservatively with 4 time daily lactulose and high-dose rifaximin. The patient is status post TIPS procedure in 2018 and at this point the patient is being transferred to [facility] for evaluation of possible TIPS closure. The patient on the day of discharge is drowsy, but arousable. He was able to get out of bed and ambulate for a short period of time. He has no pain. He has no shortness of breath. Of note, the patient has not had a bowel movement yet on the day of discharge. The patient is anemic , though his hemoglobin is stable today compared with the day prior. He received 1 unit of packed red blood cells on 03/07/19, he has not had any since. His creatinine is relatively stable. The patient is being transferred to [facility], 03/14/19. Dr. Blum has kindly accepted the patient in transfer. TIME SPENT: 10 minutes was spent on this transfer. [id number]/[facility] #: [id number] MTDD
[2019-03-14] MEDS ORDERED: EPOETIN ALFA-EPBX * 3,000 UNIT/ML VIAL SUBCUT SCH (21:30)
[2019-03-15 05:35] LABS: Hematocrit 21 % (42-52); Hemoglobin 7.2 g/dL (14.0-18.0); Mean Corpuscular HGB Conc 35 g/dL (31-36); Mean Corpuscular Hemoglobin 33 pg (27-31); Mean Corpuscular Volume 94 fL (80-94); Mean Platelet Volume 6.9 fL (7.4-10.4); Platelet Count 115 10^3/uL (150-450); Red Blood Count 2.19 10^6 /uL (4.18-5.48); Red Cell Distribution Width 17 % (10-15); White Blood Count 3.2 10^3/uL (3.5-10.8)
[2019-03-15 05:54] LABS: BUN/Creatinine Ratio 9.6 (8-20); Calcium 7.6 mg/dL (8.6-10.3); EGFR African American 30.5 (>60); EGFR Non-African American 25.2 (>60); Potassium 4.6 mmol/L (3.5-5.0)
[2019-03-15 07:53] VITALS: BP 95/39
--- NOTE | 2019-03-31 12:35 | TRS ---
TRANSFER SUMMARY: DATE OF ADMISSION: DATE OF TRANSFER: ADDENDUM: CONDITION ON TRANSFER: Stable. [id number]/[facility] #: [id number]
== END 2019-03-15 06:45 | disposition short-term general hospital (02) | DRG 442 ==
LOC: ED 07:04 → ICU 09:42 → MEDTELE 03-06 16:49 → ICU 03-08 04:49 → MED 03-09 17:12 → ICU 03-12 09:38 → MEDTELE 03-13 18:25
PROVIDERS: ADMIT Internal Medicine Critical Care Medicine; ATTEND Hospitalist
PROC: 30233N1 Transfusion of Nonautologous Red Blood Cells into Peripheral Vein, Percutaneous Approach (ICD-10-PCS; principal; 2019-03-07)
DX: K72.90 Hepatic failure, unspecified without coma (principal); J98.11 Atelectasis; N17.9 Acute kidney failure, unspecified; D61.818 Other pancytopenia; N18.4 Chronic kidney disease, stage 4 (severe); K92.2 Gastrointestinal hemorrhage, unspecified; I25.10 Atherosclerotic heart disease of native coronary artery without angina pectoris; Z86.718 Personal history of other venous thrombosis and embolism; K74.69 Other cirrhosis of liver; G47.33 Obstructive sleep apnea (adult) (pediatric); E86.0 Dehydration; D72.819 Decreased white blood cell count, unspecified; E78.00 Pure hypercholesterolemia, unspecified; Z96.1 Presence of intraocular lens; E78.5 Hyperlipidemia, unspecified; N40.0 Benign prostatic hyperplasia without lower urinary tract symptoms; I12.9 Hypertensive chronic kidney disease with stage 1 through stage 4 chronic kidney disease, or unspecified chronic kidney disease; K21.9 Gastro-esophageal reflux disease without esophagitis; K58.9 Irritable bowel syndrome, unspecified; Z86.010 Personal history of colon polyps; Z98.42 Cataract extraction status, left eye; Z85.51 Personal history of malignant neoplasm of bladder; Z90.49 Acquired absence of other specified parts of digestive tract; Z88.8 Allergy status to other drugs, medicaments and biological substances; Z91.040 Latex allergy status; Z91.048 Other nonmedicinal substance allergy status; I25.2 Old myocardial infarction; Z98.41 Cataract extraction status, right eye; Z95.5 Presence of coronary angioplasty implant and graft; Z82.49 Family history of ischemic heart disease and other diseases of the circulatory system; Z87.891 Personal history of nicotine dependence; Z95.0 Presence of cardiac pacemaker
CPT/HCPCS: 36415; 70450; 71045; 80048; 80053; 80329; 81003; 82140; 82272; 82803; 83605; 83735; 84100; 84443; 84484; 85014; 85018; 85025; 85027; 85610; 86850; 86900; 86901; 86922; 87641; 99284; A9270-GY; G0480; G8978-GP-CJ; G8979-GP-CI; J1644; J2405; J7060; P9040; Q5106

== ENCOUNTER 2019-07-26 12:50 | Observation (INO) | payer MEDICARE ==
--- OUTSIDE RECORDS SUMMARY | 2019-07-26 12:59 | XMS REPORT | Continuity of Care Document ---
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 Problems Provider Date Primary bacterial peritonitis Isaac Ruiz MD Onset: 08/22/2018 Cirrhosis - non-alcoholic Isaac Ruiz MD Onset: 08/22/2018 Iron deficiency anemia Isaac Ruiz MD Onset: 08/08/2018 Ascites Isaac Ruiz MD Onset: 10/13/2016 Portal hypertension Isaac Ruiz MD Onset: 10/13/2016 Hemorrhoids without complication Isaac Ruiz MD Onset: 03/16/2016 Digestive symptom Isaac Ruiz MD Onset: 01/19/2016 History of polyp of colon Isaac Ruiz MD Onset: 09/12/2012 Diarrhea Franklyn Johnston MD Onset: 12/23/2015 Social History Type Date Description Comments Sex Unknown Tobacco Use Start: Unknown End: Unknown Patient is a former smoker Smoking Status Reviewed: 07/09/19 Patient is a former smoker Allergies, Adverse Reactions, Alerts Active Allergies Reaction Severity Comments Date NKDA 09/12/2012 Horse Serum 05/14/2008 Latex blisters 02/11/2019 Medications Active Medications SIG Qnty Indications Ordering Provider Date Lasix 1 by mouth Isaac Ruiz, 07/09/2019 20mg Tablets every day Lactulose 30 ML tid Isaac Ruiz, 05/08/2019 20GM/30ML Solution Xifaxan 1 by mouth 90tabs Isaac Ruiz, 04/19/2019 550mg Tablets three times a MD day Benadryl Allergy Use 1 PO QHS 30caps Franklyn Johnston, 10/31/2018 25mg For Sleep MD Capsules Magnesium Oxide 30tabs Unknown 06/30/2018 400(240Mg) mg Tablets Aspir-81 1 by mouth Unknown 81mg Tablets DR every day Nitroglycerin prn Unknown 0.4mg Tablets Sub Rosuvastatin Calcium 1 by mouth Unknown 40mg every day Tablets Spironolactone Take 1 tablet 30tabs Isaac Ruiz, 50mg Tablets by mouth every MD day Ferrous Sulfate Unknown 325mg Nitroglycerin 1 sl as needed 25tabs Franklyn Johnston, 0.4mg Tablets pain, may Sub repeat q5 min, if no relief after 2, call 911 Pantoprazole Sodium 1 po bid Unknown 40mg Tablets DR Flomax 1 by mouth Unknown 0.4mg Capsules every day Epogen Biw Unknown 3000Unit/ML Solution Midodrine HCL tid Unknown 10mg Tablets History Medications Lasix 2 by mouth every Isaac Ruiz MD 05/08/2019 - 40mg Tablets day 07/09/2019 Immunizations Description No Information Available Vital Signs Date Vital Result Comment 07/09/2019 12:57pm Height 71 inches 5'11" Weight 215.00 lb with shoes BP Systolic 114 mmHg BP Diastolic 64 mmHg Heart Rate 69 /min BMI (Body Mass Index) 30.0 kg/m2 05/08/2019 2:12pm Height 71 inches 5'11" Weight 194.00 lb BP Systolic 101 mmHg BP Diastolic 52 mmHg Heart Rate 83 /min BMI (Body Mass Index) 27.1 kg/m2 Results Test Acquired Date Facility Test Result H/L Range Note CBC Auto Diff 02/11/2019 N2N/[facility]D Import White Blood 2.5 10^3/uL Low 3.5- 10.8 Count Red Blood Count 1.93 10^6/uL Low 4.18-5.48 Hemoglobin 6.6 g/dL Low 14-18 Hematocrit 19 % Low 42-52 Mean Corpuscular Volume 98 fL High 80-94 Mean Corpuscular Hemoglobin 34 pg High 27-31 Mean Corpuscular HGB Conc 35 g/dL 31-36 Red Cell Distribution Width 18 % High 10-15 Platelet Count 166 10^3/uL 150-450 Mean Platelet Volume 7.9 fL 7.4-10.4 Abs Neutrophils 1.1 10^3/uL Low 1.5-7.7 Abs Lymphocytes 1.0 10^3/uL 1-4.8 Abs Monocytes 0.3 10^3/uL 0-0.8 Abs Eosinophils 0.1 10^3/uL 0-0.6 Abs Basophils 0.0 10^3/uL 0-0.2 Abs Nucleated RBC 0.0 10^3/uL Granulocyte % 42.6 % Lymphocyte % 39.6 % Monocyte % 11.4 % Eosinophil % 5.5 % Basophil % 0.9 % Nucleated Red Blood Cells % 0.1 1 Lab Results 02/06/2019 N2N/CCD Import Sodium 138 mEq/L 134-149 Potassium 5.1 mEq/L 3.6-5.5 Chloride 109 mEq/L 94-112 Carbon Dioxide 21 mEq/L 21-32 Glucose 122 mg/dL High 70-105 1 BUN 43 mg/dL High 6-26 2 Creatinine 2.3 mg/dL High 0.6-1.4 3 BUN/Creat Ratio 18.7 CALC 8-36 Calcium 7.5 mg/dL Low 8.6-10.2 4 GFR Non- 29 ml/min/1.73m^ Low GFR 36 ml/min/1.73m^ Low CBC Auto Diff 02/04/2019 N2N/CCD Import White Blood Count 2.1 10^3/uL Low 3.5-10.8 Red Blood Count 2.39 10^6/uL Low 4.18-5.48 Hemoglobin 7.8 g/dL Low 14-18 Hematocrit 23 % Low 42-52 Mean Corpuscular Volume 97 fL High 80-94 Mean Corpuscular Hemoglobin 33 pg High 27-31 Mean Corpuscular HGB Conc 34 g/dL 31-36 Red Cell Distribution Width 18 % High 10-15 Platelet Count 132 10^3/uL Low 150-450 Mean Platelet Volume 7.3 fL Low 7.4-10.4 Abs Neutrophils 1.3 10^3/uL Low 1.5-7.7 Abs Lymphocytes 0.5 10^3/uL Low 1-4.8 Abs Monocytes 0.2 10^3/uL 0-0.8 Abs Eosinophils 0.1 10^3/uL 0-0.6 Abs Basophils 0.0 10^3/uL 0-0.2 Abs Nucleated RBC 0.0 10^3/uL Granulocyte % 63.2 % Lymphocyte % 22.3 % Monocyte % 9.9 % Eosinophil % 3.1 % Basophil % 1.5 % Nucleated Red Blood Cells % 0.0 1 Lab Results 02/04/2019 [employer] Import TSH (Thyroid Stim 1.15 mcIU/mL 0.34-5.6 5 Horm) Lab Results 01/25/2019 [employer] Import Troponin I 0.00 ng/mL 6 CBC Auto Diff 01/25/2019 [employer] Import White Blood Count 2.1 10^3/uL Low 3.5-10.8 Red Blood Count 2.02 10^6/uL Low 4.18-5.48 Hemoglobin 6.8 g/dL Low 14-18 Hematocrit 20 % Low 42-52 Mean Corpuscular Volume 99 fL High 80-94 Mean Corpuscular Hemoglobin 33 pg High 27-31 Mean Corpuscular HGB Conc 34 g/dL 31-36 Red Cell Distribution Width 17 % High 10-15 Platelet Count 133 10^3/uL Low 150-450 Mean Platelet Volume 7.4 fL 7.4-10.4 Abs Neutrophils 1.1 10^3/uL Low 1.5-7.7 Abs Lymphocytes 0.6 10^3/uL Low 1-4.8 Abs Monocytes 0.2 10^3/uL 0-0.8 Abs Eosinophils 0.1 10^3/uL 0-0.6 Abs Basophils 0.0 10^3/uL 0-0.2 Abs Nucleated RBC 0.0 10^3/uL Granulocyte % 55.1 % Lymphocyte % 29.5 % Monocyte % 10.9 % Eosinophil % 3.4 % Basophil % 1.1 % Nucleated Red Blood Cells % 0.0 1 Comp Metabolic Panel 01/25/2019 [employer] Import Sodium 136 mmol/L 135- 145 Potassium 4.8 mmol/L 3.5-5 Chloride 111 mmol/L 101-111 Co2 Carbon Dioxide 20 mmol/L Low 22-32 Anion Gap 5 mmol/L 2-11 Glucose 98 mg/dL 70-100 Blood Urea Nitrogen 37 mg/dL High 6-24 Creatinine 2.56 mg/dL High 0.67-1.17 BUN/Creatinine Ratio 14.5 1 8-20 Calcium 8.0 mg/dL Low 8.6-10.3 Total Protein 5.9 g/dL Low 6.4-8.9 Albumin 2.1 g/dL Low 3.2-5.2 Globulin 3.8 g/dL 2-4 Albumin/Globulin Ratio 0.6 1 Low 1-3 Total Bilirubin 0.50 mg/dL 0.2-1 Alkaline Phosphatase 123 U/L High 34-104 Alt 27 U/L 7-52 Ast 33 U/L 13-39 Egfr Non- 24.5 1 Egfr 29.6 1 7 Lab Results 01/25/2019 N2N/CCD Import Troponin I 0.00 ng/mL 8 Inr/Protime 01/25/2019 N2N/CCD Import Inr 1.05 1 0.82-1.09 9 Lab Results 01/25/2019 N2N/CCD Import Partial Thrombo Time 36.2 s 26-38 PTT D Dimer Quantitative > 1050 ng/mL High 10 B-Type Natriuretic Peptide BNP 300 pg/mL High Lactic Acid 1.2 mmol/L 0.5-2 11 Type & Screen 01/25/2019 N2N/CCD Import Patient Blood Type A Positive Antibody Screen Negative Lab Results 01/25/2019 N2N/CCD Import Packed Cells See Results [address] [facility] <See Note> CBC Auto Diff 01/14/2019 N2N/CCD Import White Blood 2.8 10^3/uL Low 3.5- 10.8 Count Red Blood Count 2.29 10^6/uL Low 4.18-5.48 Hemoglobin 7.7 g/dL Low 14-18 Hematocrit 23 % Low 42-52 Mean Corpuscular Volume 99 fL High 80-94 Mean Corpuscular Hemoglobin 34 pg High 27-31 Mean Corpuscular HGB Conc 34 g/dL 31-36 Red Cell Distribution Width 19 % High 10-15 Platelet Count 156 10^3/uL 150-450 Mean Platelet Volume 6.8 fL Low 7.4-10.4 Abs Neutrophils 1.6 10^3/uL 1.5-7.7 Abs Lymphocytes 0.8 10^3/uL Low 1-4.8 Abs Monocytes 0.3 10^3/uL 0-0.8 Abs Eosinophils 0.1 10^3/uL 0-0.6 Abs Basophils 0.0 10^3/uL 0-0.2 Abs Nucleated RBC 0.0 10^3/uL Granulocyte % 57.4 % Lymphocyte % 28.1 % Monocyte % 10.3 % Eosinophil % 3.2 % Basophil % 1.0 % Nucleated Red Blood Cells % 0.1 1 Iron & Iron Binding Capacity 01/14/2019 N2N/CCD Import Iron 72 g/dL 50 -212 Unsaturated Iron Binding < 206 ug/dL Total Iron Binding Capacity 221 g/dL Low 250-450 Transferrin 158 mg/dL Low 203-362 % Iron Saturation 33 % 15-55 Lab Results 01/14/2019 N2N/CCD Import Ferritin 129.8 ng/mL 24-336 1 NON-FASTING 2 consistent w/ previous results 3 consistent w/ previous results 4 consistent w/ previous results 5 PATIENT IS WAITING FOR RESULTS 6 Troponin-I testing on Plasma Separator Tubes (PST) has a known false positive rate of 0.20-0.40%. All positive troponins reflex immediately to secondary confirmatory testing. Using the [employer] DxI 800 Access Immunoassay systems, the 99th percentile upper reference limit was demonstrated to be < 0.03 ng/mL. 7 Because ethnic data is not always [...] 5 Kidney failure <15 (or dialysis) 8 Troponin-I testing on Plasma Separator Tubes (PST) has a known false positive rate of 0.20-0.40%. All positive troponins reflex immediately to secondary confirmatory testing. Using the [employer] DxI 800 Access Immunoassay systems, the 99th percentile upper reference limit was demonstrated to be < 0.03 ng/mL. 9 Troponin-I testing on Plasma Separator Tubes (PST) has a known false positive rate of 0.20-0.40%. All positive troponins reflex immediately to secondary confirmatory testing. Using the [employer] DxI 800 Access Immunoassay systems, the 99th percentile upper reference limit was demonstrated to be < 0.03 ng/mL. 10 Please note: The following may produce a false positive D Dimer test: - Rheumatoid factor greater than 60 IU/ml - Plasma hemoglobin greater than 0.05 gm/dl - Bilirubin greater than 50 mg/dl - Lipids greater than 1000 mg/dl - FDP greater than 20 ug/ml 11 [facility] Severe Sepsis and Septic Shock Management Bundle Measure requires all lactic acids initially measuring >2.0 mmol/L be repeated. 12 Troponin-I testing on Plasma Separator Tubes (PST) has a known false positive rate of 0.20-0.40%. All positive troponins reflex immediately to secondary confirmatory testing. Using the [employer] DxI 800 Access Immunoassay systems, the 99th percentile upper reference limit was demonstrated to be < 0.03 ng/mL. Procedures Description No Information Available Medical Devices Description No Information Available Encounters Description No Information Available Assessments Date Code Description Provider 07/09/2019 D64.9 Anemia, unspecified Isaac Ruiz MD 07/09/2019 R18.8 Other ascites Isaac Ruiz MD 07/09/2019 K76.6 Portal hypertension Isaac Ruiz MD 03/11/2019 K74.69 Other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 liver sIaac Ruiz MD Plan of Treatment Future Appointment(s):10/08/2019 1:00 pm - Isaac Ruiz MD at [facility] Functional Status Description No Information Available Mental Status Description No Information Available Referrals Description No Information Available
--- OUTSIDE RECORDS SUMMARY | 2019-07-26 12:59 | XMS REPORT | Continuity of Care Document ---
:1940 External Reference #:[id number] Author Name Isaac Ruiz MD Address [address] [place] [id number] Care Team Providers Name Role Phone Franklyn Johnston MD - Family Medicine Care Team Information Rn Oncology Clinical Problems Active Problems Provider Date Primary bacterial [...] Cells % 0.0 1 Lab Results 02/04/2019 [employer] Import TSH (Thyroid Stim 1.15 mcIU/mL 0.34-5.6 5 Horm) Lab Results 01/25/2019 [employer] Import Troponin I 0.00 ng/mL 6 CBC Auto Diff 01/25/2019 [employer] Import White Blood Count 2.1 10^3/uL Low [...] % 0.0 1 Comp Metabolic Panel 01/25/2019 [employer] Import Sodium 136 mmol/L 135- 145 Potassium [...] N2N/CCD Import Packed Cells See Results 12 [facility] [place] <See Note> CBC Auto Diff 01/14/2019 N2N/CCD [...] immediately to secondary confirmatory testing. Using the [employer] DxI 800 Access Immunoassay systems, the 99th [...] immediately to secondary confirmatory testing. Using the [employer] DxI 800 Access Immunoassay systems, the 99th [...] - FDP greater than 20 ug/ml 11 [facility] Severe Sepsis and Septic Shock Management Bundle Measure requires all lactic acids initially measuring >2.0 mmol/L be repeated. 12 Troponin-I testing on Plasma Separator Tubes (PST) has a known false positive rate of 0.20-0.40%. All positive troponins reflex immediately to secondary confirmatory testing. Using the [employer] DxI 800 Access Immunoassay systems, the 99th percentile upper reference limit was demonstrated to be < 0.03 ng/mL. Procedures Description No Information Available Medical Devices Description No Information Available Encounters Description No Information Available Assessments Date Code Description Provider 07/09/2019 D64.9 Anemia, unspecified Isaac Ruiz MD 07/09/2019 R18.8 Other ascites Isaac Ruiz MD 07/09/2019 K76.6 Portal hypertension Isaac Ruiz MD 05/08/2019 K76.6 Portal hypertension Isaac Ruiz MD 05/08/2019 R18.8 Other ascites Isaac Ruiz MD 03/11/2019 K74.69 Other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 liver Isaac Ruiz MD Plan of Treatment Future Appointment(s):10/08/2019 1:00 pm - Isaac Ruiz MD at [facility]07/09/2019 - Isaac Ruiz MDD64.9 Anemia, unspecifiedComments:I had a very long discussion with the patient and his regarding all of his symptoms. From an encephalopathy standpoint he is doing very well he takes a minimum of 30 cc 3 times a day of lactuloseand adjust accordingly. He is having at least 2-3 loose stools per day. Nonbloody. His ascites isbeing managed by paracenteses. Due to his creatinine he has had a recent reduction in his diuretics. His biggest concern are his bilateral inguinal hernias. They are affecting his quality of life. He desperately wants something done. He understands he is higher risk because of his portal hypertension I will reach out to his site leasing agent at [place] to see if there is a surgeon there who may be willing to perform surgical correction.R18.8 Other [id number] Portal hypertension Functional Status Description No Information Available Mental Status Description No Information Available Referrals Description No Information Available
--- NOTE | 2019-07-26 14:24 | ED ---
Complex/Multi-Sys Presentation - HPI Summary HPI Summary: This pt is a 79 y/o male [facility] by Dr. Guillen for elevated ammonia level today. Pt reports he sees Dr. Guillen for "everything." Pt states for the past 4-5 days pt has been tired, with decreased appetite, and nausea. Denies vomiting. Dr. Guillen ordered lab work for the patient today and patient's ammonia level was 255. Pt takes Lactulose 30 ml TID and last took it today at 1000. Pt states he has had an elevated ammonia level in the past. Denies decreased urine output. Denies urinary symptoms. PMHx includes hepatic encephalopathy, TIPS in 2018 (at [place]), nonalcoholic steatohepatitis ([place]), ascites (last time it was drained was 2 months ago), chronic renal insufficiency. Pt has also seen Dr. Ruiz, GI, in the past. - History Of Current Complaint Chief Complaint: EDGeneral Time Seen by Provider: 07/26/19 14:13 Hx Obtained From: Patient, Family/Membership Manager - Onset/Duration: Lasting Days, Still Present Timing: Days Severity Currently: Moderate Location: Negative Aggravating Factor(s): nothing Alleviating Factor(s): nothing Associated Signs And Symptoms: Positive: Nausea, Other - POSITIVE: fatigue. Negative: Vomiting, Dysuria, Fever - Allergies/Home Medications Allergies/Adverse Reactions: Allergies Allergy/AdvReac Type Severity Reaction Status Date / Time Adhesive Tape Allergy Rash Verified 07/26/19 12:52 Horse/Equine Containing Allergy Rash Verified 07/26/19 12:52 Products latex Allergy Rash Verified 07/26/19 12:52 midodrine Allergy "Could not Verified 07/26/19 12:52 tolerate" Home Medications: Home Medications Epoetin Dick (NF) [Epogen (NF)] 3,000 units SUBCUT .2X/WEEK 07/26/19 [History Confirmed 07/26/19] Metoprolol Succinate XL TAB* [Toprol XL TAB*] 12.5 mg PO BID 07/26/19 [History Confirmed 07/26/19] Midodrine HCl 10 mg PO TID 07/26/19 [History Confirmed 07/26/19] PMH/Surg Hx/FS Hx/Imm Hx Endocrine/Hematology History: Reports: Hx Anemia, Hx Unexplained Bleeding, Other Endocrine/Hematological Disorders - hx neutropenia Denies: Hx Anticoagulant Therapy - failed d/t bleeding - only takes ASA daily , Hx Diabetes Cardiovascular History: Reports: Hx Angina, Hx Angioplasty, Hx Auto Implanted Cardiovert Defib, Hx Coronary Artery Disease, Hx Deep Vein Thrombosis - with filter in place , Hx Hypercholesterolemia, Hx Hypertension, Hx Myocardial Infarction, Hx Pacemaker/ICD - pacemaker Denies: Hx Cardiac Arrest, Hx Cardiomegaly, Hx Congenital Heart Disease, Hx Congestive Heart Failure, Hx Embolism, Hx Hypotension, Hx Rheumatic Fever, Hx Syncope, Hx Valvular Heart Disease Respiratory History: Reports: Hx Pleural Effusion, Hx Sleep Apnea - current CPAP user Denies: Hx Asthma, Hx Chronic Obstructive Pulmonary Disease (COPD) GI History: Reports: Hx Cirrhosis - s/p TIPS, Hx Gall Bladder Disease, Hx Gastroesophageal Reflux Disease, Hx Gastrointestinal Bleed, Hx Irritable Bowel, Other GI Disorders - brijesh, jessika'y, S/P TIPS at [facility] Denies: Hx Crohn's Disease, Hx Diverticulosis, Hx Hiatal Hernia History: Reports: Hx Chronic Renal Failure, Other Problems/Disorders - weak bladder s/p bladder cancer, colon polyps Denies: Hx Renal Disease Musculoskeletal History: Reports: Other Musculoskeletal History - hammer toes, both feet, had sx. Denies: Hx Rheumatoid Arthritis Sensory History: Reports: Hx Cataracts - complaining that he cant see out of glasses has had 2 catartcts in the past, Hx Contacts or Glasses Denies: Hx Deafness, Hx Hearing Aid, Hx Hearing Problem, Other Sensory Impairments Opthamlomology History: Reports: Hx Cataracts - complaining that he cant see out of glasses has had 2 catartcts in the past, Hx Contacts or Glasses Denies: Other Sensory Impairments Neurological History: Denies: Hx Dementia, Hx Developmental Delay, Hx Headaches, Hx Migraine, Hx Nerve Disease, Hx Seizures, Hx Spinal Cord Injury, Hx Transient Ischemic Attacks (TIA), Other Neuro Impairments/Disorders Psychiatric History: Denies: Hx Autism, Hx Schizophrenia - Cancer History Cancer Type, Location and Year: bladder cancer Hx Chemotherapy: No - Surgical History Surgical History: Yes Surgery Procedure, Year, and Place: cataract surgery with lens implants bilat eyes. hammer toe repair bilat feet. appendectomy. cholecystectomy. cardiac stents 2018. TIPS. surg for colonic polyps. colonoscopy with polyp removal 2018 Hx Anesthesia Reactions: No - Immunization History Date of Tetanus Vaccine: unk Date of Influenza Vaccine: fall 2017 Infectious Disease History: No Infectious Disease History: Denies: Hx Clostridium Difficile, Hx Hepatitis, Hx Human Immunodeficiency Virus (HIV), Hx of Known/Suspected MRSA, Hx Shingles, Hx Tuberculosis, Traveled Outside the [place] in Last 30 Days - Family History Known Family History: Positive: Cardiac Disease Negative: Hypertension, Diabetes - Social History Alcohol Use: None Alcohol Amount: none since August 2017 when issues started Hx Substance Use: No Substance Use Type: Reports: None Hx Tobacco Use: Yes - not currently Smoking Status (MU): Former Smoker Type: Cigarettes Have You Smoked in the Last Year: No Review of Systems Constitutional: Other - POSITIVE: decreased appetite Positive: Fatigue. Negative: Fever Positive: Nausea Positive: no symptoms reported All Other Systems Reviewed And Are Negative: Yes Physical Exam - Summary Physical Exam Summary: Constitutional: Well-developed, Well-nourished, Alert. (-) Distressed Skin: Warm, Dry HENT: Normocephalic; Atraumatic Eyes: Conjunctiva normal Neck: Musculoskeletal ROM normal neck. (-) JVD, (-) Stridor Cardio: Rhythm regular, rate normal, Heart sounds normal; Intact distal pulses; Radial pulses are 2+ and symmetric. (-) Murmur Pulmonary/Chest wall: Effort normal. (-) Respiratory distress, (-) Wheezes, (-) Rales Abd: Soft, (-) tenderness, abdomen is protuberant, (-) Guarding, (-) Rebound Musculoskeletal: (-) Edema Lymph: (-) Cervical adenopathy Neuro: Alert, Oriented x3. He has asterixis. Psych: Mood and affect Normal Triage Information Reviewed: Yes Vital Signs On Initial Exam: Initial Vitals Temp Pulse Resp BP Pulse Ox 97.7 F 81 16 156/70 100 07/26/19 12:51 07/26/19 12:51 07/26/19 12:51 07/26/19 12:51 07/26/19 12:51 Vital Signs Reviewed: Yes Procedures - Sedation Patient Received Moderate/Deep Sedation with Procedure: No Diagnostics - Vital Signs Vital Signs Temp Pulse Resp BP Pulse Ox 07/26/19 12:51 97.7 F 81 16 156/70 100 - Laboratory Result Diagrams: 07/26/19 14:57 Lab Statement: Any lab studies that have been ordered have been reviewed, and results considered in the medical decision making process. Complex Multi-Symp Course/Dx Course Of Treatment: 79 -year-old male with history of cryptogenic cirrhosis, chronic elevated ammonia, history of hepatic encephalopathy presents with nausea , fatigue and elevated ammonia in the 250s. Physical examination elderly male, no acute distress. Asterixis. We'll check labs including a CMP to assess his renal function and LFTs. Will give lactulose 1 dose here and gentle fluids as it was thought that dehydration was contributing to his prior presentations. - Diagnoses Provider Diagnoses: Hepatic encephalopathy - Physician Notifications Discussed Care Of Patient With: Bryan Campa - hospitalist Time Discussed With Above Provider: 16:00 Instructed by Provider To: Other - Discussed with Dr. Campa, hospitalist, who recommends oncologist consult. [1609] Discussed with Dr. Rolon, oncologist, who agrees with hospitalist admission. [1610] Dr. Campa accepts the pt for admission. Discharge ED - Sign-Out/Discharge Documenting (check all that apply): Patient Departure - Admit to [facility] - Discharge Plan Condition: Stable Disposition: ADMITTED TO [facility] Referrals: Franklyn Johnston MD [Primary Care Provider] - - Billing Disposition and Condition Condition: STABLE Disposition: Admitted to [facility] - Attestation Statements Document Initiated by Marianoibkane: Yes Documenting Scribe: Rosalba Wolfe Provider For Whom Shakeel is Documenting (Include Credential): Maynor Metz MD Scribkane Attestation: Rosalba Lal, scribed for Maynor Metz MD on 07/26/19 at 1615. Scribe Documentation Reviewed: Yes Provider Attestation: The documentation as recorded by the Rosalba carvajal accurately reflects the service I personally performed and the decisions made by , Maynor Metz MD Status of Scribe Document: Viewed
[2019-07-26 15:23] LABS: INR 1.09 (0.82-1.09)
[2019-07-26 15:35] LABS: Albumin 2.5 g/dL (3.2-5.2); Albumin/Globulin Ratio 0.6 (1-3); BUN/Creatinine Ratio 9.9 (8-20); Calcium 7.8 mg/dL (8.6-10.3); EGFR African American 26.5 (>60); EGFR Non-African American 21.9 (>60); Globulin 4.1 g/dL (2-4); Total Bilirubin 0.5 mg/dL (0.2-1.0); Total Protein 6.6 g/dL (6.4-8.9)
[2019-07-26 15:40] LABS: Potassium 5.5 mmol/L (3.5-5.0)
[2019-07-26] MEDS ORDERED: NS 0.9% 1000 ML** 1,000 ML IV SCH (17:15)
[2019-07-26] MEDS ORDERED: Ondansetron INJ* 2 MG/ML VIAL IV PRN (17:22)
[2019-07-26] MEDS ORDERED: Enoxaparin(*) 30 MG/0.3 ML SYR SUBCUT SCH (21:00)
[2019-07-26] MEDS ORDERED: Tamsulosin CAP* 0.4 MG PO SCH (21:00)
--- NOTE | 2019-07-26 21:30 | HP ---
CC: Dr. Johnston* ADMISSION HISTORY AND PHYSICAL: DATE OF ADMISSION: 07/26/19 PRIMARY CARE PROVIDER: Dr. Johnston. HEALTHCARE PROXY: His . CODE STATUS: Full. SOURCE OF INFORMATION: History obtained from interview with the patient and his , review of past medical records. RELIABILITY: Good. CHIEF COMPLAINT: Weakness. HISTORY OF PRESENT ILLNESS: This is a 79-year-old man with past medical history of cryptogenic cirrhosis, status post TIPS procedure with history of baseline severe hyperammonemia and anemia, who woke up today feeling "fuzzy and shaky" as well as feeling difficult to concentrate. His indicated that he was not out of it but did feel more fatigued and was difficult to arouse out of bed. He saw Dr. Guillen today, who follows him for anemia, who checked his ammonia and found it to be high and referred the patient to the emergency room. The patient indicates he has been feeling good, he has been taking all of his medications and moving his bowels appropriately, usually 3 times a day with his lactulose. However, he has had a low appetite for 4 to 5 days, associated with nausea in absence of vomiting. No cough, shortness of breath, dysuria. No headaches, although does have intermittent throbbing headache if he does have short episodes of coughing. Denies any chest pain or travel but notes his daughter from [place] was visiting and has been coughing all last week. PAST MEDICAL HISTORY: Includes cryptogenic cirrhosis; baseline hyperammonemia; history of delirium; hepatic encephalopathy; CAD; DVT, status post IVC filter placement and removal in 2018; history of GI bleed; anemia; bladder cancer; TIPS in February 2018; S[place], on CPAP; CKD; history of appendectomy; cholecystectomy ; and permanent pacemaker placement. MEDICATIONS: Home medication list reviewed. 1. Rosuvastatin 40 mg daily. 2. Aspirin 81 mg daily. 3. Protonix 40 mg twice daily. 4. Magnesium 400 mg daily. 5. Ferrous sulfate 325 mg twice daily. 6. Rifaximin 550 three times a day. 7. Lasix 20 mg in the morning. 8. Spironolactone 50 mg daily. 9. Midodrine 10 mg 3 times a day. 10. Tamsulosin 0.4 mg at bedtime. 11. Epogen 3000 units injected twice weekly. 12. Lactulose 30 mg 3 times a day. ALLERGIES: ADHESIVE TAPE, HORSE CONTAINING PRODUCTS, LATEX, MIDODRINE. FAMILY HISTORY: No CAD in mother or father. SOCIAL HISTORY: Greater than [id number] history. No alcohol or illicits. REVIEW OF SYSTEMS: As per HPI, otherwise all other systems negative. PHYSICAL EXAMINATION GENERAL: Lying flat, interactive, in no apparent distress. VITAL SIGNS: When seen by this author, 129/60, heart rate 76, respiratory rate 18, 100% on room air, T-max in the emergency room 97.7. HEENT: Oropharynx is clear. He has moist mucous membranes. Sclerae anicteric. He has no cervical or supraclavicular lymphadenopathy. Non-elevated JVP. LUNGS: Clear to auscultation. HEART: He has regular rate and rhythm. Soft 2/6 systolic ejection murmur. ABDOMEN: Distended, but nontender. Positive bowel sounds throughout and soft. EXTREMITIES: Warm and well perfused. He has less than 2-second cap refill and he has at least 1+ bilateral lower extremity pitting edema. NEUROLOGIC: His cranial nerves are intact and he has no apparent anxiety, agitation, or depression. DIAGNOSTIC STUDIES/LAB DATA: EKG, ventricular paced rhythm. ASSESSMENT AND PLAN: This is a 79-year-old man with past medical history of cryptogenic cirrhosis, status post TIPS procedure, multiple hospital stays with hepatic encephalopathy, as well as known hyperammonemia, sometimes asymptomatic , presenting with weakness as well as elevated ammonia in the setting of 1 week of decreased appetite. 1. Weakness, suspect dehydration in the setting of decreased p.o. The patient' s indicates he has been losing weight over the last week in conjunction with his decreased appetite and p.o. intake. The patient is not encephalopathic. I do think his dehydration is contributing significantly to his weakness. Recommend admitting to the hospital for continued gentle IV hydration overnight. He was receiving Lactated Ringers in the emergency room, was changed to normal saline given his hyperkalemia at this point. 2. Acute on chronic kidney injury. Creatinine elevated above baseline. Fluid for a total of 1.5 L by tomorrow, recheck in the morning. 3. Anemia checked prior to presentation. Hemoglobin is 8.0 at baseline. Continue to monitor. 4. Anorexia. Suspect viral illness contributing to the patient's decreased oral intake, dehydration and ultimate hospital stay. Likely obtained from sick contact with daughter. Has not developed diarrhea or would be hard to monitor diarrhea in the setting of taking lactulose. No other focal site of infection identified but we will check urine for completion. No respiratory symptoms. So , I will not check a chest x-ray but if the patient does develop any cough, we will check chest x-ray. 5. Hyperammonemia - does not correlate with the patient's neurological status, will not trend. 6. DVT prophylaxis. Lovenox. 7. Code status. Full. [id number]/CPS #: [id number] MTDD
[2019-07-26] MEDS: Ferrous Sulfate TAB* 325 MG PO SCH (21:57)
[2019-07-26] MEDS: RiFAXimin* 550 MG TAB PO SCH (21:57)
[2019-07-26] MEDS: Pantoprazole TAB * 40 MG TAB PO SCH (21:57)
[2019-07-26 23:48] LABS: Urine Appearance Clear; Urine Bilirubin Negative (Negative); Urine Blood Negative (Negative); Urine Color Yellow; Urine Glucose Negative (Negative); Urine Ketones Negative (Negative); Urine Nitrite Negative (Negative); Urine Protein 1+(30 mg/dL) (Negative); Urine Specific Gravity 1.014 (1.010-1.030); Urine Urobilinogen Negative (Negative)
[2019-07-26 23:50] LABS: Urine Bacteria Absent (Absent); Urine Red Blood Cell Absent (Absent); Urine White Blood Cell Absent (Absent)
[2019-07-27 06:11] LABS: Hematocrit 21 % (42-52); Hemoglobin 6.9 g/dL (14.0-18.0); Mean Corpuscular HGB Conc 33 g/dL (31-36); Mean Corpuscular Hemoglobin 34 pg (27-31); Mean Corpuscular Volume 100 fL (80-94); Mean Platelet Volume 8.1 fL (7.4-10.4); Platelet Count 143 10^3/uL (150-450); Red Blood Count 2.05 10^6 /uL (4.18-5.48); Red Cell Distribution Width 18 % (10-15); White Blood Count 1.3 10^3/uL (3.5-10.8)
[2019-07-27 06:19] LABS: ABS Eosinophils 0.1 10^3/ul (0-0.6); ABS Lymphocytes 0.4 10^3/ul (1.0-4.8); ABS Monocytes 0.2 10^3/ul (0-0.8); ABS Neutrophils 0.6 10^3/ul (1.5-7.7); Lymphocyte % 30.9 %; Nucleated Red Blood Cells % 0.3
[2019-07-27 06:27] LABS: BUN/Creatinine Ratio 9.8 (8-20); Calcium 7.6 mg/dL (8.6-10.3); EGFR African American 28.6 (>60); EGFR Non-African American 23.6 (>60)
[2019-07-27 08:58] LABS: Hematocrit 24 % (42-52); Hemoglobin 7.7 g/dL (14.0-18.0)
[2019-07-27] MEDS ORDERED: Furosemide TAB* 20 MG PO SCH (09:00)
[2019-07-27] MEDS ORDERED: Magnesium Oxide TAB* 400 MG PO SCH (09:00)
[2019-07-27] MEDS ORDERED: Spironolactone TAB* 25 MG PO SCH (09:00)
[2019-07-27] MEDS ORDERED: Aspirin EC TAB* 81 MG TAB.EC PO SCH (09:00)
[2019-07-27] MEDS: Pantoprazole TAB * 40 MG TAB PO SCH (09:29)
[2019-07-27] MEDS: Ferrous Sulfate TAB* 325 MG PO SCH (09:30)
[2019-07-27] MEDS: RiFAXimin* 550 MG TAB PO SCH (09:30)
[2019-07-27 12:03] VITALS: BP 104/41
--- NOTE | 2019-07-27 20:31 | DS ---
CC: Dr. Johnston* DISCHARGE SUMMARY: DATE OF ADMISSION: 07/26/19 DATE OF DISCHARGE: 07/27/19 PRIMARY CARE PROVIDER: Dr. Johnston. DISPOSITION ON DISCHARGE: Home. CONDITION ON DISCHARGE: Good. PRIMARY DIAGNOSIS: Dehydration. SECONDARY DIAGNOSES: 1. Cryptogenic cirrhosis with baseline hyperammonemia, history of hepatic encephalopathy. 2. Coronary artery disease 3. DVT, status post IVC filter and removal. 4. History of gastrointestinal bleed and anemia requiring frequent transfusion. 5. Transjugular intrahepatic portosystemic shunt procedure in 2007. 6. Obstructive sleep apnea, on CPAP. 7. Chronic kidney disease. MEDICATIONS ON DISCHARGE: Unchanged from admission and include: 1. Rosuvastatin 40 mg daily. 2. Aspirin 81 mg daily. 3. Protonix 40 mg twice daily. 4. Magnesium 400 mg daily. 5. Ferrous sulfate 325 mg twice daily. 6. Rifaximin 550 mg three times a day. 7. Lasix 20 mg in the morning. 8. Spironolactone 50 mg daily. 9. Midodrine 10 mg 3 times a day. 10. Tamsulosin 0.4 mg at bedtime. 11. Epogen 30,000 units twice weekly. 12. Lactulose 30 mg 3 times a day. PERTINENT LABORATORY DATA: Hemoglobin 7.7 on discharge without need for transfusion, BUN 26, creatinine 2.6 on discharge. HISTORY OF PRESENT ILLNESS AND HOSPITAL COURSE: This is a 79-year-old man with a past medical history as outlined in the history of present illness on the day of admission including cryptogenic cirrhosis, status post TIPS procedure, frequent hospital stays for hepatic encephalopathy, appears to be unrelated severity of his elevated ammonia was seen, was feeling unwell for approximately a week with decreased p.o. appetite, nausea, but still taking his lactulose diligently, presented to the hospital with weak and fatigue but not encephalopathic. He was hydrated with normal saline, and the following day, he felt back to his baseline, got out of bed, washed up, smiling, and prepared to return home. His who is at the bedside also indicated that she thought her was back to his baseline. No changes to his medications were made. He is to follow up with his primary care provider in 1 to 2 weeks. I do suspect he had a viral illness contributing to his decreased p.o. appetite and nausea, which ultimately led to dehydration requiring hospital stay for fluid resuscitation. FOLLOWUP INSTRUCTIONS: At followup, please: 1. The patient is still on appropriate regimen of medications and no inadvertent changes were made during the course of the hospital stay. 2. No other specific labs or vitals that need followup. 3. Reasons to return to the hospital including but not limited to recurrent or worsening symptoms, including but not limited to change in the mental status consistent with previous episodes of delirium or hepatic encephalopathy, chest pain, shortness of breath, nausea, vomiting, lightheadedness, loss of consciousness, near loss of consciousness, bleeding from any source, inability to obtain or tolerate medications discussed with the patient and his . He acknowledged understanding. TIME SPENT: Greater than 45 minutes was spent on discharge of this patient of which greater than half was spent [id number] with the patient. [id number]/CPS #: [id number]
== END 2019-07-27 12:50 | disposition home or self-care (01) ==
LOC: ED 12:50 → MEDTELE 17:22
PROVIDERS: ADMIT Internal Medicine; ATTEND Internal Medicine
DX: E86.0 Dehydration (principal); K74.69 Other cirrhosis of liver; I25.10 Atherosclerotic heart disease of native coronary artery without angina pectoris; Z86.718 Personal history of other venous thrombosis and embolism; G47.33 Obstructive sleep apnea (adult) (pediatric); Z79.82 Long term (current) use of aspirin; Z79.899 Other long term (current) drug therapy; R94.31 Abnormal electrocardiogram [ECG] [EKG]; I12.9 Hypertensive chronic kidney disease with stage 1 through stage 4 chronic kidney disease, or unspecified chronic kidney disease; N18.9 Chronic kidney disease, unspecified; I25.2 Old myocardial infarction; Z95.0 Presence of cardiac pacemaker; Z87.891 Personal history of nicotine dependence; R53.83 Other fatigue
CPT/HCPCS: 36415; 80048; 80053; 81003; 81015; 84484; 85014; 85018; 85025; 85610; 87086; 93005; 96372; 99284; A9270-GY; G0378; J1650

== ENCOUNTER 2019-11-27 10:28 | Inpatient (IN) | payer MEDICARE, OTHER ==
[2019-11-27 12:54] LABS: ABS Lymphocytes 0.3 10^3/ul (1.0-4.8); ABS Monocytes 0.3 10^3/ul (0-0.8); Eosinophil % 0.4 %; Hematocrit 26 % (42-52); Hemoglobin 8.9 g/dL (14.0-18.0); Lymphocyte % 13.3 %; Mean Corpuscular HGB Conc 34 g/dL (31-36); Mean Corpuscular Hemoglobin 33 pg (27-31); Mean Corpuscular Volume 98 fL (80-94); Mean Platelet Volume 8.3 fL (7.4-10.4); Nucleated Red Blood Cells % 0.2; Platelet Count 176 10^3/uL (150-450); Red Cell Distribution Width 18 % (10-15); White Blood Count 2.5 10^3/uL (3.5-10.8)
[2019-11-27 13:02] LABS: Activated Partial Thrombo Time 34.9 seconds (26.0-38.0); INR 1.13 (0.82-1.09)
[2019-11-27 13:16] LABS: ALT 35 U/L (7-52); AST 43 U/L (13-39); Acetaminophen < 15 mcg/mL; Albumin 2.5 g/dL (3.2-5.2); Albumin/Globulin Ratio 0.6 (1-3); Alcohol, S < 10 mg/dL (<10); Alkaline Phosphatase 155 U/L (34-104); Anion Gap 8 mmol/L (2-11); BUN/Creatinine Ratio 10.5 (8-20); Blood Urea Nitrogen 33 mg/dL (6-24); CO2 Carbon Dioxide 16 mmol/L (22-32); Calcium 7.9 mg/dL (8.6-10.3); Chloride 110 mmol/L (101-111); EGFR African American 23.4 (>60); EGFR Non-African American 19.3 (>60); Globulin 4.5 g/dL (2-4); Glucose 125 mg/dL (70-100); Magnesium 2.6 mg/dL (1.9-2.7); Potassium 4.3 mmol/L (3.5-5.0); Salicylate < 2.50 mg/dL (<30); Sodium 134 mmol/L (135-145)
[2019-11-27 13:17] LABS: Troponin I 0.01 ng/mL (<0.03)
[2019-11-27 13:31] LABS: TSH (Thyroid Stimulating Horm) 0.64 mcIU/mL (0.34-5.60)
[2019-11-27 15:57] LABS: Urine Appearance Clear; Urine Bilirubin Negative (Negative); Urine Blood Negative (Negative); Urine Color Yellow; Urine Glucose Negative (Negative); Urine Ketones Negative (Negative); Urine Nitrite Negative (Negative); Urine Protein 1+(30 mg/dL) (Negative); Urine Specific Gravity 1.013 (1.010-1.030); Urine Urobilinogen Negative (Negative)
[2019-11-27 16:00] LABS: Urine Bacteria Absent (Absent); Urine Red Blood Cell Absent (Absent); Urine White Blood Cell 1+(6-10/hpf) (Absent)
[2019-11-27] MEDS ORDERED: Ondansetron 4 mg VIAL 2 MG/ML 2 ml VIAL IV PRN (16:19)
[2019-11-27] MEDS ORDERED: Al Hydrox/Mg Hydrox/Simet LIQ 30 ML UDC PO PRN (16:19)
[2019-11-27 19:26] LABS: % Iron Saturation 15 % (15-55); Iron 45 ug/dL (50-212); Total Iron Binding Capacity 301 mcg/dL (250-450); Transferrin 215 mg/dL (203-362)
[2019-11-27] MEDS: NS 0.9% 1000 ml BAG 1,000 ML IV SCH (20:05)
[2019-11-27] MEDS: Lactulose 30 ml UDC PO SCH ×4 (20:07→23:43)
[2019-11-27 20:54] LABS: Ferritin 125.9 ng/mL (24-336)
[2019-11-27 20:57] LABS: Folate 8.41 ng/mL (>3.99)
[2019-11-27] MEDS: Heparin 5000 UNITS/ML VIAL(*) 1 ml vial SUBCUT SCH (21:55)
[2019-11-28] MEDS: Lactulose 30 ml UDC PO SCH ×6 (01:57→20:32)
[2019-11-28] MEDS: Heparin 5000 UNITS/ML VIAL(*) 1 ml vial SUBCUT SCH ×3 (05:22→20:33)
[2019-11-28] MEDS: NS 0.9% 1000 ml BAG 1,000 ML IV SCH ×2 (05:33→15:24)
[2019-11-28 08:34] LABS: ABS Lymphocytes 0.5 10^3/ul (1.0-4.8); ABS Monocytes 0.2 10^3/ul (0-0.8); Eosinophil % 2.1 %; Hematocrit 28 % (42-52); Hemoglobin 9.2 g/dL (14.0-18.0); Lymphocyte % 23.8 %; Mean Corpuscular HGB Conc 33 g/dL (31-36); Mean Corpuscular Hemoglobin 32 pg (27-31); Mean Corpuscular Volume 99 fL (80-94); Mean Platelet Volume 8.2 fL (7.4-10.4); Nucleated Red Blood Cells % 0.1; Platelet Count 200 10^3/uL (150-450); Red Blood Count 2.88 10^6 /uL (4.18-5.48); Red Cell Distribution Width 18 % (10-15); White Blood Count 2.2 10^3/uL (3.5-10.8)
[2019-11-28 08:53] LABS: Albumin 2.5 g/dL (3.2-5.2); Albumin/Globulin Ratio 0.5 (1-3); BUN/Creatinine Ratio 10.2 (8-20); EGFR African American 24.4 (>60); EGFR Non-African American 20.2 (>60); Globulin 4.6 g/dL (2-4); Potassium 4.3 mmol/L (3.5-5.0); Total Bilirubin 0.6 mg/dL (0.2-1.0); Total Protein 7.1 g/dL (6.4-8.9)
[2019-11-28] MEDS: Aspirin EC 81 mg TAB.EC (enteric coated) PO SCH (10:12)
[2019-11-29] MEDS: Aspirin EC 81 mg TAB.EC (enteric coated) PO SCH (09:00)
[2019-11-29] MEDS: Lactulose 30 ml UDC PO SCH ×3 (09:00→20:51)
[2019-11-29] MEDS: Heparin 5000 UNITS/ML VIAL(*) 1 ml vial SUBCUT SCH ×2 (14:00→21:41)
[2019-11-29 19:38] LABS: Hematocrit 23 % (42-52); Hemoglobin 7.9 g/dL (14.0-18.0)
[2019-11-29 19:42] LABS: Urine Appearance Cloudy; Urine Color Yellow; Urine Specific Gravity 1.012 (1.010-1.030); Urine Urobilinogen Negative (Negative)
[2019-11-29 19:43] LABS: Urine Bacteria Absent (Absent); Urine Bilirubin Negative (Negative); Urine Blood Negative (Negative); Urine Glucose Negative (Negative); Urine Ketones Negative (Negative); Urine Nitrite Negative (Negative); Urine Protein Negative (Negative); Urine Red Blood Cell Trace(0-2/hpf) (Absent); Urine Squamous Epithelial Cell Present (Absent); Urine White Blood Cell 2+(11-20/hpf) (Absent)
[2019-11-29 19:54] LABS: % Iron Saturation 41 % (15-55); Iron 100 ug/dL (50-212); Total Iron Binding Capacity 242 mcg/dL (250-450); Transferrin 173 mg/dL (203-362)
[2019-11-29 20:10] LABS: Ferritin 104.1 ng/mL (24-336)
[2019-11-29] MEDS: Sodium Bicarb 650 mg (ANTACID) TAB PO SCH (20:49)
[2019-11-29 21:53] LABS: ABS Lymphocytes 0.4 10^3/ul (1.0-4.8); ABS Monocytes 0.3 10^3/ul (0-0.8); Eosinophil % 2.3 %; Hematocrit 22 % (42-52); Hemoglobin 7.4 g/dL (14.0-18.0); Lymphocyte % 22.9 %; Mean Corpuscular HGB Conc 33 g/dL (31-36); Mean Corpuscular Hemoglobin 33 pg (27-31); Mean Corpuscular Volume 98 fL (80-94); Mean Platelet Volume 7.9 fL (7.4-10.4); Platelet Count 155 10^3/uL (150-450); Red Blood Count 2.26 10^6 /uL (4.18-5.48); Red Cell Distribution Width 17 % (10-15); White Blood Count 1.7 10^3/uL (3.5-10.8)
[2019-11-29 21:54] LABS: Potassium 4.4 mmol/L (3.5-5.0)
[2019-11-29 21:55] LABS: Albumin/Globulin Ratio 0.6 (1-3); BUN/Creatinine Ratio 9.9 (8-20); Calcium 7.4 mg/dL (8.6-10.3); EGFR African American 27.5 (>60); EGFR Non-African American 22.7 (>60); Globulin 3.6 g/dL (2-4); Total Bilirubin 0.4 mg/dL (0.2-1.0); Total Protein 5.6 g/dL (6.4-8.9)
[2019-11-29 22:50] LABS: Hematocrit 23 % (42-52); Hemoglobin 7.5 g/dL (14.0-18.0); Mean Corpuscular HGB Conc 33 g/dL (31-36); Mean Corpuscular Hemoglobin 33 pg (27-31); Mean Corpuscular Volume 98 fL (80-94); Mean Platelet Volume 7.7 fL (7.4-10.4); Platelet Count 144 10^3/uL (150-450); Red Cell Distribution Width 17 % (10-15); White Blood Count 2.2 10^3/uL (3.5-10.8)
[2019-11-29 22:54] LABS: ABS Lymphocytes 0.5 10^3/ul (1.0-4.8); ABS Monocytes 0.3 10^3/ul (0-0.8); Eosinophil % 1.8 %; Lymphocyte % 23.6 %; Nucleated Red Blood Cells % 0.1
[2019-11-30 05:12] LABS: Hematocrit 22 % (42-52); Hemoglobin 7.3 g/dL (14.0-18.0); Mean Corpuscular HGB Conc 34 g/dL (31-36); Mean Corpuscular Hemoglobin 34 pg (27-31); Mean Corpuscular Volume 99 fL (80-94); Mean Platelet Volume 8.6 fL (7.4-10.4); Platelet Count 150 10^3/uL (150-450); Red Blood Count 2.18 10^6 /uL (4.18-5.48); Red Cell Distribution Width 17 % (10-15); White Blood Count 1.7 10^3/uL (3.5-10.8)
[2019-11-30 05:28] LABS: Albumin/Globulin Ratio 0.5 (1-3); BUN/Creatinine Ratio 10.2 (8-20); Calcium 7.5 mg/dL (8.6-10.3); EGFR African American 27.4 (>60); EGFR Non-African American 22.6 (>60); Globulin 3.7 g/dL (2-4); Potassium 4.2 mmol/L (3.5-5.0); Total Bilirubin 0.5 mg/dL (0.2-1.0); Total Protein 5.7 g/dL (6.4-8.9)
[2019-11-30] MEDS: Sodium Bicarb 650 mg (ANTACID) TAB PO SCH ×2 (08:38→20:20)
[2019-11-30] MEDS: Lactulose 30 ml UDC PO SCH ×3 (08:40→20:18)
[2019-12-01 04:55] LABS: ABS Lymphocytes 0.4 10^3/ul (1.0-4.8); ABS Monocytes 0.3 10^3/ul (0-0.8); Eosinophil % 1.8 %; Hematocrit 24 % (42-52); Hemoglobin 8.5 g/dL (14.0-18.0); Lymphocyte % 17.5 %; Mean Corpuscular HGB Conc 35 g/dL (31-36); Mean Corpuscular Hemoglobin 33 pg (27-31); Mean Corpuscular Volume 96 fL (80-94); Mean Platelet Volume 8.6 fL (7.4-10.4); Platelet Count 144 10^3/uL (150-450); Red Blood Count 2.56 10^6 /uL (4.18-5.48); Red Cell Distribution Width 17 % (10-15); White Blood Count 2.2 10^3/uL (3.5-10.8)
[2019-12-01 05:01] LABS: BUN/Creatinine Ratio 9.8 (8-20); Calcium 7.5 mg/dL (8.6-10.3); EGFR African American 28.6 (>60); EGFR Non-African American 23.6 (>60); Potassium 4.2 mmol/L (3.5-5.0)
[2019-12-01] MEDS: Sodium Bicarb 650 mg (ANTACID) TAB PO SCH (09:14)
[2019-12-01] MEDS: Lactulose 30 ml UDC PO SCH (09:14)
[2019-12-01 10:16] VITALS: BP 90/52
== END 2019-12-01 13:20 | disposition home or self-care (01) | DRG 442 ==
LOC: ED 10:28 → MEDTELE 16:19
PROVIDERS: ADMIT Hospitalist; ATTEND Internal Medicine

== ENCOUNTER 2020-06-07 13:11 | Inpatient (IN) ==
[2020-06-07 14:22] LABS: ABS Lymphocytes 0.3 10^3/ul (1.0-4.8); ABS Monocytes 0.5 10^3/ul (0-0.8); Hematocrit 24 % (42-52); Hemoglobin 7.7 g/dL (14.0-18.0); Lymphocyte % 3.4 %; Mean Corpuscular HGB Conc 32 g/dL (31-36); Mean Corpuscular Hemoglobin 31 pg (27-31); Mean Corpuscular Volume 96 fL (80-94); Mean Platelet Volume 7.8 fL (7.4-10.4); Platelet Count 145 10^3/uL (150-450); Red Blood Count 2.48 10^6 /uL (4.18-5.48); Red Cell Distribution Width 19 % (10-15); White Blood Count 9.8 10^3/uL (3.5-10.8)
[2020-06-07 14:40] LABS: ALT 29 U/L (7-52); Albumin 2.1 g/dL (3.2-5.2); Albumin/Globulin Ratio 0.5 (1-3); Alkaline Phosphatase 144 U/L (34-104); BUN/Creatinine Ratio 8.8 (8-20); Blood Urea Nitrogen 27 mg/dL (6-24); Calcium 8.1 mg/dL (8.6-10.3); Chloride 108 mmol/L (101-111); EGFR African American 23.9 (>60); EGFR Non-African American 19.7 (>60); Glucose 115 mg/dL (70-100); Lipase 38 U/L (11.0-82.0); Sodium 132 mmol/L (135-145); Total Protein 6.1 g/dL (6.4-8.9)
[2020-06-07 14:41] LABS: Troponin I 0.02 ng/mL (<0.03)
[2020-06-07 14:49] LABS: CO2 Carbon Dioxide 14 mmol/L (22-32)
[2020-06-07 15:23] LABS: Anion Gap 10 mmol/L (2-11)
[2020-06-07 17:14] LABS: Urine Appearance Cloudy; Urine Bilirubin Negative (Negative); Urine Blood 2+ (Negative); Urine Color Yellow; Urine Glucose Negative (Negative); Urine Ketones Negative (Negative); Urine Nitrite Negative (Negative); Urine Protein 2+(100 mg/dL) (Negative); Urine Specific Gravity 1.017 (1.010-1.030); Urine Urobilinogen Negative (Negative)
[2020-06-07 17:38] LABS: Urine Bacteria Absent (Absent); Urine Red Blood Cell 3+(>10/hpf) (Absent); Urine White Blood Cell Absent (Absent)
[2020-06-07 17:48] LABS: Potassium Redraw 4.2 mmol/L (3.5-5.0)
[2020-06-07 19:59] LABS: INR 1.29 (0.82-1.09)
[2020-06-08 06:00] LABS: INR 1.3 (0.82-1.09)
[2020-06-08 06:01] LABS: ABS Lymphocytes 0.3 10^3/ul (1.0-4.8); ABS Monocytes 0.3 10^3/ul (0-0.8); ABS Neutrophils 3.4 10^3/ul (1.5-7.7); Eosinophil % 0.3 %; Hematocrit 19 % (42-52); Hemoglobin 6.3 g/dL (14.0-18.0); Lymphocyte % 8.2 %; Mean Corpuscular HGB Conc 32 g/dL (31-36); Mean Corpuscular Hemoglobin 31 pg (27-31); Mean Corpuscular Volume 96 fL (80-94); Mean Platelet Volume 7.3 fL (7.4-10.4); Platelet Count 122 10^3/uL (150-450); Red Blood Count 2.02 10^6 /uL (4.18-5.48); Red Cell Distribution Width 18 % (10-15)
[2020-06-08 06:16] LABS: BUN/Creatinine Ratio 9.9 (8-20); Calcium 7.7 mg/dL (8.6-10.3); EGFR African American 24.4 (>60); EGFR Non-African American 20.2 (>60); Potassium 4.2 mmol/L (3.5-5.0)
[2020-06-08] MEDS ORDERED: Aspirin EC 81 mg TAB.EC (enteric coated) PO SCH (09:00)
[2020-06-08] MEDS ORDERED: Furosemide 40 mg/4 ml IV VIAL IV ONE ×2 (13:11→20:30)
[2020-06-08] MEDS ORDERED: Furosemide 20 mg/2 ml IV VIAL IV ONE (13:22)
[2020-06-08] MEDS: Iron Sucrose 200 MG in NS 0.9% 100 ml BAG 100 ML IVPB SCH (13:36)
[2020-06-08] MEDS: Ondansetron 4 mg VIAL 2 MG/ML 2 ml VIAL IV PRN ×2 (14:08→21:13)
[2020-06-08] MEDS ORDERED: Prochlorperazine 5 mg/ml 2 ml VIAL (10 mg) IV ONE (15:00)
[2020-06-08 16:03] LABS: Body Fluid Source Peritonial Fluid
[2020-06-08 19:58] LABS: Body Fluid Mono 2 %
[2020-06-08] MEDS: cefTRIAXone 2 GM ADDV.VIAL 2 GM in NS 0.9% 100 ml BAG 100 ML IV SCH (21:24)
[2020-06-08 22:12] LABS: Hematocrit 31 % (42-52); Hemoglobin 10.3 g/dL (14.0-18.0)
[2020-06-09 06:39] LABS: ABS Lymphocytes 0.5 10^3/ul (1.0-4.8); ABS Monocytes 0.4 10^3/ul (0-0.8); ABS Neutrophils 6.2 10^3/ul (1.5-7.7); Hematocrit 31 % (42-52); Hemoglobin 10.4 g/dL (14.0-18.0); Lymphocyte % 7.5 %; Mean Corpuscular HGB Conc 34 g/dL (31-36); Mean Corpuscular Hemoglobin 31 pg (27-31); Mean Corpuscular Volume 91 fL (80-94); Mean Platelet Volume 7.5 fL (7.4-10.4); Platelet Count 114 10^3/uL (150-450); Red Blood Count 3.34 10^6 /uL (4.18-5.48); Red Cell Distribution Width 19 % (10-15); White Blood Count 7.1 10^3/uL (3.5-10.8)
[2020-06-09 06:54] LABS: BUN/Creatinine Ratio 11.3 (8-20); Calcium 7.4 mg/dL (8.6-10.3); EGFR African American 24.6 (>60); EGFR Non-African American 20.3 (>60); Potassium 3.7 mmol/L (3.5-5.0)
[2020-06-09] MEDS ORDERED: Albumin Human 25% 50 GM/200 ML BTL IV SCH (07:00)
[2020-06-09] MEDS ORDERED: ALBUMIN HUMAN 25% IV ONE ×2 (09:00→15:30)
[2020-06-09] MEDS: Albumin Human 25% 25 GM/100 ML BTL IV SCH ×2 (09:21→11:02)
[2020-06-09] MEDS: Iron Sucrose 200 MG in NS 0.9% 100 ml BAG 100 ML IVPB SCH (10:09)
[2020-06-09] MEDS: cefTRIAXone 2 GM ADDV.VIAL 2 GM in NS 0.9% 100 ml BAG 100 ML IV SCH (20:46)
[2020-06-10 07:42] LABS: ABS Lymphocytes 0.4 10^3/ul (1.0-4.8); ABS Monocytes 0.4 10^3/ul (0-0.8); ABS Neutrophils 2.5 10^3/ul (1.5-7.7); Eosinophil % 0.8 %; Hematocrit 27 % (42-52); Hemoglobin 9.1 g/dL (14.0-18.0); Lymphocyte % 12.9 %; Mean Corpuscular HGB Conc 34 g/dL (31-36); Mean Corpuscular Hemoglobin 31 pg (27-31); Mean Corpuscular Volume 91 fL (80-94); Mean Platelet Volume 7.6 fL (7.4-10.4); Platelet Count 104 10^3/uL (150-450); Red Blood Count 2.94 10^6 /uL (4.18-5.48); Red Cell Distribution Width 18 % (10-15); White Blood Count 3.4 10^3/uL (3.5-10.8)
[2020-06-10 08:04] LABS: BUN/Creatinine Ratio 11.2 (8-20); Calcium 7.4 mg/dL (8.6-10.3); EGFR African American 25.2 (>60); EGFR Non-African American 20.8 (>60); Potassium 3.5 mmol/L (3.5-5.0)
[2020-06-10] MEDS: Iron Sucrose 200 MG in NS 0.9% 100 ml BAG 100 ML IVPB SCH (09:02)
[2020-06-10] MEDS: Albumin Human 25% 25 GM/100 ML BTL IV SCH ×2 (16:21→17:54)
[2020-06-10] MEDS: Ondansetron 4 mg VIAL 2 MG/ML 2 ml VIAL IV PRN (18:03)
[2020-06-10] MEDS: cefTRIAXone 2 GM ADDV.VIAL 2 GM in NS 0.9% 100 ml BAG 100 ML IV SCH (22:31)
[2020-06-10] MEDS: Al Hydrox/Mg Hydrox/Simet LIQ 30 ML UDC PO PRN (22:36)
[2020-06-11 07:04] LABS: Hematocrit 28 % (42-52); Hemoglobin 9.6 g/dL (14.0-18.0); Mean Corpuscular HGB Conc 34 g/dL (31-36); Mean Corpuscular Hemoglobin 31 pg (27-31); Mean Corpuscular Volume 91 fL (80-94); Platelet Count 108 10^3/uL (150-450); Red Cell Distribution Width 18 % (10-15); White Blood Count 4.4 10^3/uL (3.5-10.8)
[2020-06-11 07:23] LABS: BUN/Creatinine Ratio 11.1 (8-20); Calcium 7.3 mg/dL (8.6-10.3); EGFR African American 25.8 (>60); EGFR Non-African American 21.3 (>60); Potassium 3.5 mmol/L (3.5-5.0)
[2020-06-11] MEDS ORDERED: Albumin Human 25% 25 GM/100 ML BTL IV SCH (07:30)
[2020-06-11] MEDS: Iron Sucrose 200 MG in NS 0.9% 100 ml BAG 100 ML IVPB SCH (09:19)
[2020-06-11] MEDS: Al Hydrox/Mg Hydrox/Simet LIQ 30 ML UDC PO PRN (21:14)
[2020-06-11] MEDS: cefTRIAXone 2 GM ADDV.VIAL 2 GM in NS 0.9% 100 ml BAG 100 ML IV SCH (21:25)
[2020-06-12 06:27] LABS: Hematocrit 31 % (42-52); Hemoglobin 10.4 g/dL (14.0-18.0); Mean Corpuscular HGB Conc 34 g/dL (31-36); Mean Corpuscular Hemoglobin 31 pg (27-31); Mean Corpuscular Volume 93 fL (80-94); Mean Platelet Volume 7.9 fL (7.4-10.4); Platelet Count 112 10^3/uL (150-450); Red Blood Count 3.37 10^6 /uL (4.18-5.48); Red Cell Distribution Width 19 % (10-15); White Blood Count 5.2 10^3/uL (3.5-10.8)
[2020-06-12 06:48] LABS: BUN/Creatinine Ratio 11.2 (8-20); Calcium 7.4 mg/dL (8.6-10.3); EGFR African American 27.9 (>60); EGFR Non-African American 23.1 (>60); Potassium 3.6 mmol/L (3.5-5.0)
[2020-06-12] MEDS: Albumin Human 25% 25 GM/100 ML IV SCH ×2 (08:27→10:47)
[2020-06-12] MEDS: Iron Sucrose 200 MG in NS 0.9% 100 ml BAG 100 ML IVPB SCH (09:59)
[2020-06-12] MEDS ORDERED: cefTRIAXone 2 GM ADDV.VIAL 2 GM in NS 0.9% 100 ml BAG 100 ML IV ONE (17:40)
[2020-06-12] MEDS: cefTRIAXone 2 GM ADDV.VIAL 2 GM in NS 0.9% 100 ml BAG 100 ML IV SCH (21:22)
[2020-06-13 07:57] LABS: Hematocrit 30 % (42-52); Hemoglobin 9.9 g/dL (14.0-18.0); Mean Corpuscular HGB Conc 33 g/dL (31-36); Mean Corpuscular Hemoglobin 31 pg (27-31); Mean Corpuscular Volume 92 fL (80-94); Mean Platelet Volume 7.5 fL (7.4-10.4); Platelet Count 109 10^3/uL (150-450); Red Blood Count 3.23 10^6 /uL (4.18-5.48); Red Cell Distribution Width 19 % (10-15); White Blood Count 6.5 10^3/uL (3.5-10.8)
[2020-06-13 08:17] LABS: Calcium 7.8 mg/dL (8.6-10.3); EGFR African American 29.8 (>60); EGFR Non-African American 24.6 (>60); Potassium 3.6 mmol/L (3.5-5.0)
[2020-06-13 13:29] VITALS: BP 106/49
== END 2020-06-13 17:57 | disposition home health service (06) | DRG 811 ==
LOC: ED 13:11 → MEDTELE 20:59
PROVIDERS: ADMIT Internal Medicine; ATTEND Internal Medicine

== ENCOUNTER 2020-06-24 11:37 | Inpatient (IN) ==
[2020-06-24] MEDS ORDERED: NS 0.9% 1000 ml BAG 1,000 ML IV ONE (12:07)
[2020-06-24] MEDS ORDERED: metroNIDAZOLE IV 500 MG/100ML 500 MG/100 ML BAG IVPB ONE (12:08)
[2020-06-24] MEDS ORDERED: cefTRIAXone 1 gm/50 mL NS BAG 1 GM/50 ML BAG IV ONE (12:08)
[2020-06-24 13:20] LABS: Albumin 2.7 g/dL (3.2-5.2); Albumin/Globulin Ratio 0.9 (1-3); BUN/Creatinine Ratio 14.5 (8-20); C Reactive Protein 104.86 mg/L (<8.01); Calcium 7.6 mg/dL (8.6-10.3); EGFR African American 15.5 (>60); EGFR Non-African American 12.8 (>60); Globulin 3.1 g/dL (2-4); Total Bilirubin 0.5 mg/dL (0.2-1.0); Total Protein 5.8 g/dL (6.4-8.9)
[2020-06-24 13:25] LABS: ABS Lymphocytes 0.3 10^3/ul (1.0-4.8); ABS Monocytes 0.4 10^3/ul (0-0.8); ABS Neutrophils 3.8 10^3/ul (1.5-7.7); Eosinophil % 0.2 %; Hematocrit 20 % (42-52); Hemoglobin 6.7 g/dL (14.0-18.0); Lymphocyte % 6.2 %; Mean Corpuscular HGB Conc 33 g/dL (31-36); Mean Corpuscular Hemoglobin 31 pg (27-31); Mean Corpuscular Volume 93 fL (80-94); Mean Platelet Volume 8.1 fL (7.4-10.4); Platelet Count 154 10^3/uL (150-450); Red Blood Count 2.18 10^6 /uL (4.18-5.48); Red Cell Distribution Width 18 % (10-15); White Blood Count 4.5 10^3/uL (3.5-10.8)
[2020-06-24] MEDS ORDERED: Vancomycin 1,000 MG in NS 0.9% 250 ml 250 ML IV ONE (14:11)
[2020-06-24] MEDS ORDERED: Albumin Human 25% 25 GM/100 ML BTL IV ONE (14:36)
[2020-06-24] MEDS ORDERED: Vancomycin 1,000 MG in NS 0.9% 250 ml 250 ML IVPB ONE (15:29)
[2020-06-24] MEDS ORDERED: Vancomycin per Pharmacy 1 EA NOTE FOLLOW UP SCH (16:00)
[2020-06-24] MEDS ORDERED: VANCOMYCIN 1500 MG X 1 DOSE IVPB ONE (17:30)
[2020-06-24 17:48] LABS: Activated Partial Thrombo Time 33.6 seconds (26.0-38.0); INR 1.25 (0.82-1.09)
[2020-06-24] MEDS: Cefepime 1 GM in Dextrose 1 GM/50 ML BAG IV SCH (19:26)
[2020-06-24] MEDS: Sodium Bicarb 8.4% Vial 50 ML 150 MEQ in D5W 1000 ml BAG 850 ML IV SCH (19:28)
[2020-06-24] MEDS: Heparin 5000 UNITS/ML 1 mL VIAL SUBCUT SCH (21:07)
[2020-06-24] MEDS ORDERED: Sodium Bicarb 650 mg (ANTACID) TAB PO ONE (21:30)
[2020-06-24] MEDS: Calcium Carb (TUMS) 500 mg CHEW TAB PO PRN (21:46)
[2020-06-24 22:03] LABS: % Iron Saturation 32 % (15-55); Iron 34 ug/dL (50-212); Total Iron Binding Capacity 105 mcg/dL (250-450); Transferrin < 75 mg/dL (203-362); Unsaturated Iron Binding < 90 ug/dL
[2020-06-24 22:23] LABS: Ferritin 330.7 ng/mL (24-336)
[2020-06-25] MEDS: Heparin 5000 UNITS/ML 1 mL VIAL SUBCUT SCH ×3 (04:19→22:19)
[2020-06-25 06:40] LABS: ABS Lymphocytes 0.4 10^3/ul (1.0-4.8); ABS Monocytes 0.4 10^3/ul (0-0.8); ABS Neutrophils 3.3 10^3/ul (1.5-7.7); Eosinophil % 0.9 %; Hematocrit 24 % (42-52); Hemoglobin 7.8 g/dL (14.0-18.0); Mean Corpuscular HGB Conc 33 g/dL (31-36); Mean Corpuscular Hemoglobin 30 pg (27-31); Mean Corpuscular Volume 92 fL (80-94); Mean Platelet Volume 9.3 fL (7.4-10.4); Nucleated Red Blood Cells % 0.1; Platelet Count 183 10^3/uL (150-450); Red Blood Count 2.57 10^6 /uL (4.18-5.48); Red Cell Distribution Width 18 % (10-15); White Blood Count 4.2 10^3/uL (3.5-10.8)
[2020-06-25 07:01] LABS: Calcium 7.4 mg/dL (8.6-10.3); EGFR African American 16.1 (>60); EGFR Non-African American 13.3 (>60)
[2020-06-25] MEDS ORDERED: Vancomycin Random Level NOTE FOLLOW UP ONE (08:00)
[2020-06-25] MEDS: Sodium Bicarb 650 mg (ANTACID) TAB PO SCH ×3 (11:47→15:31)
[2020-06-25] MEDS: Lactulose 30 ml UDC PO SCH (11:47)
[2020-06-25] MEDS: Sodium Bicarb 8.4% Vial 50 ML 150 MEQ in D5W 1000 ml BAG 850 ML IV SCH (11:52)
[2020-06-25] MEDS ORDERED: Vancomycin 1,250 MG IV x ONCE IVPB ONE (12:00)
[2020-06-25] MEDS: Albumin Human 25% 25 GM/100 ML BTL IV SCH (15:21)
[2020-06-25] MEDS: Cefepime 1 GM in Dextrose 1 GM/50 ML BAG IV SCH (17:37)
[2020-06-25] MEDS: Calcium Carb (TUMS) 500 mg CHEW TAB PO PRN (22:45)
[2020-06-26] MEDS: Sodium Bicarb 8.4% Vial 50 ML 150 MEQ in D5W 1000 ml BAG 850 ML IV SCH (02:03)
[2020-06-26 05:28] LABS: ABS Eosinophils 0.1 10^3/ul (0-0.6); ABS Lymphocytes 0.5 10^3/ul (1.0-4.8); ABS Monocytes 0.3 10^3/ul (0-0.8); ABS Neutrophils 2.5 10^3/ul (1.5-7.7); Eosinophil % 2.1 %; Hematocrit 24 % (42-52); Hemoglobin 8.3 g/dL (14.0-18.0); Lymphocyte % 13.5 %; Mean Corpuscular HGB Conc 34 g/dL (31-36); Mean Corpuscular Hemoglobin 31 pg (27-31); Mean Corpuscular Volume 90 fL (80-94); Mean Platelet Volume 8.7 fL (7.4-10.4); Platelet Count 166 10^3/uL (150-450); Red Cell Distribution Width 18 % (10-15); White Blood Count 3.4 10^3/uL (3.5-10.8)
[2020-06-26] MEDS: Heparin 5000 UNITS/ML 1 mL VIAL SUBCUT SCH ×3 (05:34→23:47)
[2020-06-26 05:35] LABS: Activated Partial Thrombo Time 44.9 seconds (26.0-38.0); INR 1.27 (0.82-1.09)
[2020-06-26 05:43] LABS: BUN/Creatinine Ratio 13.8 (8-20); EGFR African American 16.1 (>60); EGFR Non-African American 13.3 (>60); Potassium 4.8 mmol/L (3.5-5.0)
[2020-06-26 05:46] LABS: Vancomycin Random 18.5 mcg/mL
[2020-06-26] MEDS ORDERED: Vancomycin Random Level NOTE FOLLOW UP ONE (06:00)
[2020-06-26] MEDS ORDERED: Sodium Bicarb 8.4% Vial 50 ML 150 MEQ in D5W 1000 ml BAG 850 ML IV SCH (07:04)
[2020-06-26] MEDS: Lactulose 30 ml UDC PO SCH (08:50)
[2020-06-26] MEDS: Sodium Bicarb 650 mg (ANTACID) TAB PO SCH ×3 (08:51→16:56)
[2020-06-26] MEDS ORDERED: Furosemide 40 mg/4 ml IV VIAL IV ONE (09:06)
[2020-06-26] MEDS: Albumin Human 25% 25 GM/100 ML BTL IV SCH (10:08)
[2020-06-26] MEDS: Vancomycin 1,250 MG IV Q24H IVPB SCH (13:55)
[2020-06-26] MEDS: Cefepime 1 GM in Dextrose 1 GM/50 ML BAG IV SCH (18:27)
[2020-06-26] MEDS: Calcium Carb (TUMS) 500 mg CHEW TAB PO PRN (19:37)
[2020-06-27] MEDS ORDERED: Magnesium Hydroxide LIQ 30 ML UDC PO ONE (05:36)
[2020-06-27] MEDS: Heparin 5000 UNITS/ML 1 mL VIAL SUBCUT SCH ×3 (05:52→20:20)
[2020-06-27 05:55] LABS: ABS Basophils 0.1 10^3/ul (0-0.2); ABS Eosinophils 0.1 10^3/ul (0-0.6); ABS Lymphocytes 0.5 10^3/ul (1.0-4.8); ABS Monocytes 0.4 10^3/ul (0-0.8); ABS Neutrophils 2.4 10^3/ul (1.5-7.7); Eosinophil % 2.4 %; Hematocrit 25 % (42-52); Hemoglobin 8.5 g/dL (14.0-18.0); Lymphocyte % 14.7 %; Mean Corpuscular HGB Conc 34 g/dL (31-36); Mean Corpuscular Hemoglobin 31 pg (27-31); Mean Corpuscular Volume 91 fL (80-94); Mean Platelet Volume 9.8 fL (7.4-10.4); Platelet Count 160 10^3/uL (150-450); Red Blood Count 2.75 10^6 /uL (4.18-5.48); Red Cell Distribution Width 18 % (10-15); White Blood Count 3.4 10^3/uL (3.5-10.8)
[2020-06-27 06:09] LABS: BUN/Creatinine Ratio 13.4 (8-20); Calcium 6.9 mg/dL (8.6-10.3); EGFR African American 16.2 (>60); EGFR Non-African American 13.4 (>60); Potassium 4.7 mmol/L (3.5-5.0)
[2020-06-27] MEDS ORDERED: Furosemide 40 mg/4 ml IV VIAL IV ONE (09:33)
[2020-06-27] MEDS: Sodium Bicarb 650 mg (ANTACID) TAB PO SCH ×3 (10:15→14:59)
[2020-06-27] MEDS: Lactulose 30 ml UDC PO SCH (10:17)
[2020-06-27] MEDS: Albumin Human 25% 25 GM/100 ML BTL IV SCH (10:58)
[2020-06-27] MEDS: Vancomycin 1,250 MG IV Q24H IVPB SCH (13:56)
[2020-06-27] MEDS: Cefepime 1 GM in Dextrose 1 GM/50 ML BAG IV SCH (18:31)
[2020-06-27 20:02] LABS: Body Fluid Source Peritonial Fluid
[2020-06-27 20:35] LABS: Body Fluid Mono 24 %
[2020-06-28] MEDS: Heparin 5000 UNITS/ML 1 mL VIAL SUBCUT SCH ×3 (04:51→21:13)
[2020-06-28 06:37] LABS: ABS Basophils 0.1 10^3/ul (0-0.2); ABS Eosinophils 0.1 10^3/ul (0-0.6); ABS Lymphocytes 0.5 10^3/ul (1.0-4.8); ABS Monocytes 0.5 10^3/ul (0-0.8); ABS Neutrophils 3.7 10^3/ul (1.5-7.7); Eosinophil % 1.2 %; Hematocrit 27 % (42-52); Hemoglobin 8.9 g/dL (14.0-18.0); Lymphocyte % 10.2 %; Mean Corpuscular HGB Conc 33 g/dL (31-36); Mean Corpuscular Hemoglobin 31 pg (27-31); Mean Corpuscular Volume 92 fL (80-94); Mean Platelet Volume 7.5 fL (7.4-10.4); Platelet Count 133 10^3/uL (150-450); Red Blood Count 2.89 10^6 /uL (4.18-5.48); Red Cell Distribution Width 18 % (10-15); White Blood Count 4.8 10^3/uL (3.5-10.8)
[2020-06-28 06:41] LABS: INR 1.31 (0.82-1.09)
[2020-06-28 06:52] LABS: Calcium 6.8 mg/dL (8.6-10.3); EGFR African American 15.9 (>60); EGFR Non-African American 13.2 (>60); Potassium 4.7 mmol/L (3.5-5.0)
[2020-06-28 08:39] LABS: Vancomycin Random 30.5 mcg/mL
[2020-06-28] MEDS: Sodium Bicarb 650 mg (ANTACID) TAB PO SCH ×3 (09:35→15:47)
[2020-06-28] MEDS: Lactulose 30 ml UDC PO SCH (09:37)
[2020-06-28] MEDS: Albumin Human 25% 25 GM/100 ML BTL IV SCH (09:38)
[2020-06-28] MEDS ORDERED: Vancomycin Trough Check NOTE FOLLOW UP ONE (14:00)
[2020-06-28] MEDS: Cefepime 1 GM in Dextrose 1 GM/50 ML BAG IV SCH (17:22)
[2020-06-29] MEDS ORDERED: Vancomycin Random Level NOTE FOLLOW UP ONE (06:00)
[2020-06-29] MEDS: Heparin 5000 UNITS/ML 1 mL VIAL SUBCUT SCH ×3 (06:32→20:56)
[2020-06-29 06:36] LABS: BUN/Creatinine Ratio 13.1 (8-20); Calcium 6.8 mg/dL (8.6-10.3); EGFR African American 15.4 (>60); EGFR Non-African American 12.7 (>60); Magnesium 2.4 mg/dL (1.9-2.7); Phosphorus 5.2 mg/dL (2.5-5.0); Vancomycin Random 26.4 mcg/mL
[2020-06-29 06:44] LABS: Potassium 5.3 mmol/L (3.5-5.0)
[2020-06-29] MEDS ORDERED: fentaNYL 100 mcg/2 ml 50 MCG/ML VIAL ONE (07:56)
[2020-06-29] MEDS ORDERED: Clindamycin 600 MG/D5W BAG IV ONE (08:00)
[2020-06-29] MEDS: Sodium Bicarb 650 mg (ANTACID) TAB PO SCH ×2 (10:18→11:19)
[2020-06-29] MEDS: Lactulose 30 ml UDC PO SCH (10:18)
[2020-06-29] MEDS: Albumin Human 25% 25 GM/100 ML BTL IV SCH (10:21)
[2020-06-29 13:32] LABS: Hepatitis B Surface Antigen Nonreactive (Nonreactive)
[2020-06-29] MEDS ORDERED: Heparin 1,000 UNIT/ML 10 ml (10,000 UNITS) CATHLAB/DIALYSIS DIALYSIS ONE (17:00)
[2020-06-29] MEDS: Cefepime 1 GM in Dextrose 1 GM/50 ML BAG IV SCH (18:17)
[2020-06-29 20:05] LABS: Hepatitis B Surface Antigen Nonreactive (Nonreactive)
[2020-06-29 20:23] LABS: Hepatitis B Surface Ab Not Immune (Immune)
[2020-06-29] MEDS: Docusate LIQ 100 MG/10 ML UDC PO SCH (20:55)
[2020-06-29] MEDS: Senna TAB 8.6 mg TAB PO SCH (20:55)
[2020-06-30] MEDS: Heparin 5000 UNITS/ML 1 mL VIAL SUBCUT SCH ×3 (04:48→20:39)
[2020-06-30] MEDS ORDERED: Vancomycin Random Level NOTE FOLLOW UP ONE (06:00)
[2020-06-30 06:28] LABS: BUN/Creatinine Ratio 11.3 (8-20); Calcium 6.8 mg/dL (8.6-10.3); EGFR African American 17.7 (>60); EGFR Non-African American 14.6 (>60); Magnesium 2.3 mg/dL (1.9-2.7); Phosphorus 4.8 mg/dL (2.5-5.0); Potassium 4.5 mmol/L (3.5-5.0)
[2020-06-30 06:40] LABS: Vancomycin Random 22.5 mcg/mL
[2020-06-30] MEDS ORDERED: Albumin Human 25% 12.5 GM/50 ML BTL IV PRN ×2 (08:00→10:00)
[2020-06-30] MEDS ORDERED: Heparin 1,000 UNIT/ML 10 ml (10,000 UNITS) CATHLAB/DIALYSIS DIALYSIS ONE (08:00)
[2020-06-30] MEDS: Albumin Human 25% 25 GM/100 ML BTL IV SCH (08:56)
[2020-06-30] MEDS ORDERED: Lactulose 30 ml UDC PO SCH (09:00)
[2020-06-30] MEDS: Lactulose 30 ml UDC PO SCH (13:45)
[2020-06-30] MEDS: Senna TAB 8.6 mg TAB PO SCH (13:47)
[2020-06-30] MEDS: Docusate LIQ 100 MG/10 ML UDC PO SCH (13:47)
[2020-06-30] MEDS: Cefepime 1 GM in Dextrose 1 GM/50 ML BAG IV SCH (18:20)
[2020-07-01] MEDS: Heparin 5000 UNITS/ML 1 mL VIAL SUBCUT SCH ×3 (04:53→20:51)
[2020-07-01 07:36] LABS: Calcium 7.3 mg/dL (8.6-10.3); EGFR African American 21.1 (>60); EGFR Non-African American 17.4 (>60); Potassium 3.9 mmol/L (3.5-5.0)
[2020-07-01 07:36] LABS: Hematocrit 22 % (42-52); Hemoglobin 7.3 g/dL (14.0-18.0); Mean Corpuscular HGB Conc 33 g/dL (31-36); Mean Corpuscular Hemoglobin 31 pg (27-31); Mean Corpuscular Volume 93 fL (80-94); Mean Platelet Volume 7.7 fL (7.4-10.4); Platelet Count 96 10^3/uL (150-450); Red Blood Count 2.39 10^6 /uL (4.18-5.48); Red Cell Distribution Width 18 % (10-15); White Blood Count 4.7 10^3/uL (3.5-10.8)
[2020-07-01] MEDS ORDERED: Heparin 1,000 UNIT/ML 10 ml (10,000 UNITS) CATHLAB/DIALYSIS DIALYSIS ONE (08:00)
[2020-07-01 08:14] LABS: Vancomycin Trough 18.2 mcg/mL
[2020-07-01 10:35] LABS: ABS Basophils 0.1 10^3/ul (0-0.2); ABS Eosinophils 0.1 10^3/ul (0-0.6); ABS Lymphocytes 0.7 10^3/ul (1.0-4.8); ABS Monocytes 0.6 10^3/ul (0-0.8); ABS Neutrophils 3.3 10^3/ul (1.5-7.7); Eosinophil % 1.3 %
[2020-07-01] MEDS ORDERED: Vancomycin 750 MG in NS 0.9% 250 ML IVPB ONE (14:00)
[2020-07-01] MEDS: Lactulose 30 ml UDC PO SCH ×2 (14:04→14:06)
[2020-07-01] MEDS: Docusate LIQ 100 MG/10 ML UDC PO SCH (14:06)
[2020-07-01] MEDS: Senna TAB 8.6 mg TAB PO SCH (14:08)
[2020-07-01 15:08] LABS: C Reactive Protein 65.24 mg/L (<8.01)
[2020-07-01] MEDS: Albumin Human 25% 25 GM/100 ML BTL IV SCH (15:33)
[2020-07-01 16:45] LABS: ABS Eosinophils 0.1 10^3/ul (0-0.6); ABS Lymphocytes 0.4 10^3/ul (1.0-4.8); ABS Monocytes 0.6 10^3/ul (0-0.8); ABS Neutrophils 3.7 10^3/ul (1.5-7.7); Eosinophil % 1.1 %; Hematocrit 21 % (42-52); Mean Corpuscular HGB Conc 33 g/dL (31-36); Mean Corpuscular Hemoglobin 31 pg (27-31); Mean Corpuscular Volume 93 fL (80-94); Mean Platelet Volume 7.7 fL (7.4-10.4); Nucleated Red Blood Cells % 0.1; Platelet Count 95 10^3/uL (150-450); Red Blood Count 2.26 10^6 /uL (4.18-5.48); Red Cell Distribution Width 19 % (10-15); White Blood Count 4.7 10^3/uL (3.5-10.8)
[2020-07-01] MEDS: Cefepime 1 GM in Dextrose 1 GM/50 ML BAG IV SCH (18:16)
[2020-07-02] MEDS: Heparin 5000 UNITS/ML 1 mL VIAL SUBCUT SCH ×2 (05:29→14:23)
[2020-07-02 07:24] LABS: BUN/Creatinine Ratio 7.4 (8-20); Calcium 7.2 mg/dL (8.6-10.3); EGFR African American 26.1 (>60); EGFR Non-African American 21.6 (>60); Potassium 3.6 mmol/L (3.5-5.0)
[2020-07-02 07:25] LABS: ABS Basophils 0.1 10^3/ul (0-0.2); ABS Eosinophils 0.1 10^3/ul (0-0.6); ABS Lymphocytes 0.4 10^3/ul (1.0-4.8); ABS Monocytes 0.5 10^3/ul (0-0.8); ABS Neutrophils 2.7 10^3/ul (1.5-7.7); Eosinophil % 1.7 %; Hematocrit 20 % (42-52); Hemoglobin 6.7 g/dL (14.0-18.0); Mean Corpuscular HGB Conc 33 g/dL (31-36); Mean Corpuscular Hemoglobin 31 pg (27-31); Mean Corpuscular Volume 93 fL (80-94); Mean Platelet Volume 7.7 fL (7.4-10.4); Platelet Count 98 10^3/uL (150-450); Red Blood Count 2.19 10^6 /uL (4.18-5.48); Red Cell Distribution Width 18 % (10-15); White Blood Count 3.7 10^3/uL (3.5-10.8)
[2020-07-02] MEDS: Lactulose 30 ml UDC PO SCH ×2 (09:50→14:22)
[2020-07-02] MEDS: Albumin Human 25% 25 GM/100 ML BTL IV SCH (09:55)
[2020-07-02] MEDS: Docusate LIQ 100 MG/10 ML UDC PO SCH (10:08)
[2020-07-02] MEDS: Senna TAB 8.6 mg TAB PO SCH (10:10)
[2020-07-02 18:04] VITALS: BP 93/46
[2020-07-03] MEDS ORDERED: Vancomycin Random Level NOTE FOLLOW UP ONE (06:00)
== END 2020-07-02 18:55 | disposition home or self-care (01) ==
LOC: ED 11:37 → MEDTELE 15:26
PROVIDERS: ADMIT Internal Medicine; ATTEND Internal Medicine

== ENCOUNTER 2020-10-03 15:58 | Inpatient (IN) ==
[2020-10-03] MEDS ORDERED: Lactulose 30 ml UDC PO ONE (16:22)
[2020-10-03] MEDS ORDERED: Ondansetron 4 mg VIAL 2 MG/ML 2 ml VIAL IV ONE (16:32)
[2020-10-03] MEDS ORDERED: Morphine 4 MG/ML VIAL (1 ml) IV ONE (17:00)
[2020-10-03 17:07] LABS: ABS Lymphocytes 0.4 10^3/ul (1.0-4.8); ABS Monocytes 0.5 10^3/ul (0-0.8); ABS Neutrophils 5.8 10^3/ul (1.5-7.7); Eosinophil % 0.7 %; Hematocrit 28 % (42-52); Hemoglobin 9.2 g/dL (14.0-18.0); Lymphocyte % 5.7 %; Mean Corpuscular HGB Conc 32 g/dL (31-36); Mean Corpuscular Hemoglobin 32 pg (27-31); Mean Corpuscular Volume 99 fL (80-94); Mean Platelet Volume 9.5 fL (7.4-10.4); Platelet Count 173 10^3/uL (150-450); Red Blood Count 2.87 10^6 /uL (4.18-5.48); Red Cell Distribution Width 16 % (10-15); White Blood Count 6.7 10^3/uL (3.5-10.8)
[2020-10-03 17:32] LABS: ALT 27 U/L (7-52); AST 43 U/L (13-39); Albumin 1.7 g/dL (3.2-5.2); Albumin/Globulin Ratio 0.4 (1-3); Alkaline Phosphatase 265 U/L (34-104); Anion Gap 7 mmol/L (2-11); BUN/Creatinine Ratio 9.6 (8-20); Blood Urea Nitrogen 27 mg/dL (6-24); CO2 Carbon Dioxide 25 mmol/L (22-32); Calcium 7.5 mg/dL (8.6-10.3); Chloride 99 mmol/L (101-111); EGFR African American 26.4 (>60); EGFR Non-African American 21.8 (>60); Globulin 4.3 g/dL (2-4); Glucose 98 mg/dL (70-100); Potassium 4.4 mmol/L (3.5-5.0); Sodium 131 mmol/L (135-145)
[2020-10-03] MEDS ORDERED: NS 0.9% 1000 ml BAG 1,000 ML IV ONE (17:55)
[2020-10-03 18:08] LABS: Troponin I 0.03 ng/mL (<0.03)
[2020-10-03] MEDS ORDERED: Atropine 1% (ORAL/SL) 15 ML BTL SL PRN (18:41)
[2020-10-03] MEDS ORDERED: Ondansetron ODT 4 mg TAB 4 MG TAB SL PRN (18:41)
[2020-10-03] MEDS ORDERED: Polyethylene Glycol 3350 17 GM PACKET PO PRN (18:41)
[2020-10-03] MEDS ORDERED: Morphine ORAL CONCENTRATE 5 MG/0.25 ML ORAL.SYRIN PO PRN (18:41)
[2020-10-03] MEDS ORDERED: LORazepam 2 mg VIAL 1 ml IV PUSH PRN (18:41)
[2020-10-03] MEDS ORDERED: NS 0.9% 500 ml BAG 500 ML IV ONE (18:45)
[2020-10-03] MEDS ORDERED: Lorazepam PYXIS KEY PRN (19:07)
[2020-10-03 20:03] LABS: TSH Ultra Thyroid Stim Horm 1.03 mcIU/mL (0.34-5.60)
[2020-10-04] MEDS ORDERED: oxyCODONE/Acetamin 5/325 mg TAB PO PRN (11:20)
[2020-10-04 12:20] LABS: ABS Lymphocytes 0.3 10^3/ul (1.0-4.8); ABS Monocytes 0.5 10^3/ul (0-0.8); Eosinophil % 0.4 %; Hematocrit 26 % (42-52); Hemoglobin 8.4 g/dL (14.0-18.0); Lymphocyte % 4.2 %; Mean Corpuscular HGB Conc 33 g/dL (31-36); Mean Corpuscular Hemoglobin 32 pg (27-31); Mean Corpuscular Volume 98 fL (80-94); Mean Platelet Volume 9.2 fL (7.4-10.4); Platelet Count 117 10^3/uL (150-450); Red Blood Count 2.59 10^6 /uL (4.18-5.48); Red Cell Distribution Width 17 % (10-15); White Blood Count 6.8 10^3/uL (3.5-10.8)
[2020-10-04 12:27] LABS: INR 1.13 (0.82-1.09)
[2020-10-04 12:37] LABS: Albumin 1.6 g/dL (3.2-5.2); Albumin/Globulin Ratio 0.4 (1-3); BUN/Creatinine Ratio 10.1 (8-20); Calcium 7.4 mg/dL (8.6-10.3); EGFR African American 18.4 (>60); EGFR Non-African American 15.2 (>60); Globulin 3.8 g/dL (2-4); Total Bilirubin 0.4 mg/dL (0.2-1.0); Total Protein 5.4 g/dL (6.4-8.9)
[2020-10-04 12:39] LABS: Troponin I 0.01 ng/mL (<0.03)
[2020-10-04] MEDS: Heparin 5000 UNITS/ML 1 mL VIAL SUBCUT SCH ×2 (15:09→20:11)
[2020-10-04] MEDS: Sodium Bicarb 650 mg (ANTACID) TAB PO SCH ×2 (21:01→22:22)
[2020-10-04] MEDS ORDERED: NS 0.9% 500 ml BAG 500 ML IV ONE (21:11)
[2020-10-05] MEDS ORDERED: LORazepam 2 mg VIAL 1 ml IV PUSH ONE (04:33)
[2020-10-05] MEDS ORDERED: Lorazepam PYXIS KEY PRN ×2 (04:33→10:36)
[2020-10-05] MEDS: Heparin 5000 UNITS/ML 1 mL VIAL SUBCUT SCH ×3 (05:49→21:49)
[2020-10-05] MEDS: Sodium Bicarb 650 mg (ANTACID) TAB PO SCH ×2 (07:46→19:55)
[2020-10-05 08:02] VITALS: BP 75/40
[2020-10-05] MEDS ORDERED: Morphine ORAL CONCENTRATE 5 MG/0.25 ML ORAL.SYRIN SL PRN (08:48)
[2020-10-05] MEDS ORDERED: LORazepam 2 mg VIAL 1 ml IV PUSH PRN ×2 (10:36→14:15)
[2020-10-06] MEDS ORDERED: Scopolamine PATCH Remove NOTE PATCH OFF SCH (22:00)
== END 2020-10-05 23:55 | disposition expired | DRG 432 ==
LOC: ED 15:58 → MED 18:46
PROVIDERS: ADMIT Internal Medicine; ATTEND Internal Medicine